=== PATIENT | female | born 1980 | race African-American/Black ===

== ENCOUNTER 2021-04-06 15:24 | Emergency (ER) | payer MEDICARE, MEDICAID, SELFPAY ==
[2021-04-06 16:04] VITALS: BP 106/65; PULSE 69; RESP 18; TEMP 36.5; O2SAT 97; BMI 28.7
[2021-04-06 18:10] VITALS: BP 109/49; PULSE 58; RESP 20; TEMP 36.7; O2SAT 98
--- NOTE | 2021-04-06 18:51 | ED.BACK ---
HPI - Back Pain/Injury General Chief Complaint: Back Pain/Injury Stated Complaint: back pain Time Seen by Provider: 04/06/21 18:51 History of Present Illness HPI Narrative: Patient complains of left-sided low mid back pain that was not relieved by 1 Percocet this morning and she does take gabapentin for chronic back pain and this is similar to previousflare ups of her chronic back pain exacerbation, there is no weakness, no change to bowel or bladder no dysuria no fever Related Data Previous Rx's Medication Instructions Recorded cyclobenzaprine 5 mg tablet 5 mg PO TID PRN #14 tab 04/06/21 lidocaine 5 % topical patch 1 patch TOPICAL DAILY PRN #15 ea 04/06/21 oxycodone 5 mg tablet 5 mg PO Q6H PRN #14 tab 04/06/21 cyclobenzaprine 10 mg tablet 10 mg PO TID PRN #15 tab 04/23/21 Allergies Allergy/AdvReac Type Severity Reaction Status Date / Time No Known Allergies Allergy Unverified 05/30/20 16:15 Review of Systems Review of Systems: Positive for left-sided low back pain Negatives are no fever no chills no dizziness no weakness no headache no neck pain no chest pain no abdominal pain no changes to bowel or bladder no dysuria no frequency no incontinence no skin rash Yes all other systems are reviewed and are negative PMFSH Past Medical History Source: nursing notes reviewed Medical History Neural foraminal stenosis of cervical spine Surgical History S/P appendectomy Social History Social History Advance Directives: No Advance Directives Information Provided: No Physical Exam Vital Signs: Vital Signs: Last Vital Signs Temp 97.6 F 04/06/21 19:53 Pulse 69 04/06/21 19:53 Resp 18 04/06/21 19:53 BP 106/63 04/06/21 19:53 Pulse Ox 100 04/06/21 19:53 Body Mass Index 28.7 General appearance is no acute distress Head is normocephalic atraumatic Neck is supple Chest clear to auscultation bilateral no respiratory distress Abdomen soft nontender The back had tenderness in the left to mid low back, no midline tenderness, the tenderness is soft tissue paraspinal tenderness, no CVA tenderness, skin was normal without any redness swelling wound or rash Pain is easily reproduced with movement Extremities full range of motion x4 Neuro no gross motor or sensory deficit Course Course Course Narrative: Patient with a flare-up of chronic back pain similar to prior had pain improved with analgesics and was discharged home with no neurologic deficit and no changes to bowel or bladder Discharge Plan Discharge Clinical Impression: Back pain Patient Disposition: Home, Self-Care Additional Instructions: If needed for the back pain which has flared up it is okay to take 2 oxycodone every 6 hours as needed as well as a muscle relaxer You can continue to use the Motrin you have at home Follow with primary doctor Return any time any worse condition or concerns Prescriptions: New cyclobenzaprine 5 mg tablet 5 mg PO TID PRN (Reason: muscle spasm) Qty: 14 RF: 0 oxycodone 5 mg tablet 5 mg PO Q6H PRN (Reason: pain) Qty: 14 RF: 0 lidocaine 5 % adhesive patch,medicated 1 patch topical DAILY PRN (Reason: back pain) Qty: 15 RF: 0 No Action cyclobenzaprine 10 mg tablet 10 mg PO TID PRN (Reason: muscle spasm) Qty: 15 RF: 0 Interventions: ED Discharge Assessment Last Done: 04/06/21 21:07 Discharge Date/Time: 04/06/21 21:08
[2021-04-06] MEDS: oxyCODONE HCl Immed Release 5 MG TABLET 10 MG PO (19:19)
[2021-04-06] MEDS: Acetaminophen 325 MG TABLET 975 MG PO (19:20)
[2021-04-06] MEDS: diazePAM 5 MG TABLET PO (19:20)
[2021-04-06] MEDS: Ketorolac Tromethamine 15 MG/ML VIAL 30 MG IM (19:21)
[2021-04-06 19:53] VITALS: BP 106/63; PULSE 69; RESP 18; TEMP 36.4; O2SAT 100
== END 2021-04-06 21:08 | disposition home or self-care (01) ==
PROVIDERS: Emergency Provider Emergency Medicine; PCP Internal Medicine
DX: M54.5 Low back pain (principal)
CPT/HCPCS: 96372; 99284; J1885

== ENCOUNTER 2021-04-22 23:34 | Emergency (ER) | payer MEDICARE, MEDICAID, SELFPAY ==
[2021-04-22 23:41] VITALS: BP 135/46; PULSE 85; RESP 18; TEMP 36.8; O2SAT 99; BMI 27.3
--- NOTE | 2021-04-23 00:32 | PC.NURSE ---
MSWS at bedside for primary eval.
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
[2021-04-23] MEDS: diazePAM 5 MG TABLET PO (00:42)
[2021-04-23] MEDS: Ketorolac Tromethamine 60 MG/2 ML VIAL IM (00:42)
--- NOTE | 2021-04-23 00:45 | PC.NURSE ---
Medicated per MAR.
[2021-04-23] MEDS: oxyCODONE HCl Immed Release 5 MG TABLET 10 MG PO (01:23)
--- NOTE | 2021-04-23 01:26 | PC.NURSE ---
Pt reports no relief of pain after Toradol. Medicated with Oxycodone per NOV.
== END 2021-04-23 01:28 | disposition home or self-care (01) ==
LOC: HO.ED 04-23 00:43
PROVIDERS: Emergency Provider Internal Medicine
DX: M47.22 Other spondylosis with radiculopathy, cervical region (principal); M48.02 Spinal stenosis, cervical region; Z79.891 Long term (current) use of opiate analgesic; Z79.899 Other long term (current) drug therapy
CPT/HCPCS: 96372; 99283; 99284; J1885

== ENCOUNTER → 2021-06-20 09:47 | Outpatient (BNVA) | payer MEDICARE, MEDICAID, SELFPAY | PROVIDERS: PCP Physician Assistant; Visit Provider Internal Medicine | DX: M47.812 Spondylosis without myelopathy or radiculopathy, cervical region (principal) | CPT/HCPCS: 99212 ==

== ENCOUNTER 2021-07-02 06:09 | Outpatient (REF) | payer MEDICARE, MEDICAID, SELFPAY ==
--- NOTE | ~2021-07-02 | FL_ITS ---
EXAMINATION: XR FLUOROSCOPY WITH IMAGES CLINICAL INFORMATION: M47.812 - Spondylosis without myelopathy or radiculopathy COMPARISON: MR cervical spine 04/24/2020 TECHNIQUE: Fluoroscopy performed by Dr. Regan. Fluoroscopy time: 0.3 minutes DAP: 0.280 Gycm2 Images: 4 FINDINGS: There are spinal needles overlying the left lateral masses at C3, C4, and C5. There is contrast seen in the respective nerve sheaths. Some early transforaminal epidural extension is suggested. No visible vascular communication. There is straightening and mild reversal cervical lordosis with degenerative disc changes C5-C6 and C6-C7 similar to the MRI exam. FL/FL guidance in treatment room IMPRESSION: Fluoroscopy for pain management procedures.
== END 2021-07-02 06:10 | disposition home or self-care (01) ==
LOC: HO.RADIR 06:09
PROVIDERS: Visit Provider Internal Medicine
DX: M47.812 Spondylosis without myelopathy or radiculopathy, cervical region (principal); Z79.899 Other long term (current) drug therapy
CPT/HCPCS: 64490; 64491; Q9967

== ENCOUNTER → 2021-07-18 09:05 | Outpatient (BNVA) | payer MEDICARE, MEDICAID, SELFPAY | PROVIDERS: PCP Physician Assistant; Visit Provider Internal Medicine | DX: M47.812 Spondylosis without myelopathy or radiculopathy, cervical region (principal); M43.12 Spondylolisthesis, cervical region | CPT/HCPCS: 99212 ==

== ENCOUNTER 2021-10-15 11:00 | Outpatient (RCR) | payer MEDICARE, MEDICAID, SELFPAY | END 2021-12-11 09:47 | disposition home or self-care (01) | LOC: HO.PTCHIC 11:00 | PROVIDERS: PCP Internal Medicine; Visit Provider Internal Medicine | DX: M54.12 Radiculopathy, cervical region (principal) | CPT/HCPCS: 97110; 97163 ==

== ENCOUNTER 2022-01-10 08:50 | Outpatient (REF) | payer MEDICARE, MEDICAID, SELFPAY ==
--- NOTE | ~2022-01-10 | MM_ITS ---
EXAMINATION: MM SCREENING DIGITAL BREAST TOMOSYNTHESIS, BILATERAL CLINICAL INFORMATION: Screening. Asymptomatic. The lifetime risk of breast cancer based on the Tyrer-Cuzick Model is 8%. COMPARISON: Mammography: 11/20/2019 (baseline) TECHNIQUE: Digital breast tomosynthesis is performed in both the craniocaudal and mediolateral oblique views along with computer-aided detection (CAD). Synthesized 2D images are generated from the tomosynthesis. FINDINGS: There are scattered areas of fibroglandular density (ACR BI-RADS breast composition Category b). Parenchymal pattern is similar to prior exam. No significant mass or architectural abnormality or developing density. No abnormal calcifications. The axilla and skin contours are unremarkable. MM/MM tomosynthesis screening BI IMPRESSION: No mammographic evidence of malignancy. ASSESSMENT: BI-RADS 1: Negative RECOMMENDATION: Routine annual mammography screening. This patient's information was entered into a reminder system with a target due date for their next mammogram.
== END 2022-01-10 08:51 | disposition home or self-care (01) ==
LOC: HO.MAMMO 08:50
PROVIDERS: PCP Internal Medicine; Visit Provider Internal Medicine
DX: Z12.31 Encounter for screening mammogram for malignant neoplasm of breast (principal)
CPT/HCPCS: 77063; 77067

== ENCOUNTER 2022-02-26 18:10 | Emergency (ER) | payer MEDICARE, MEDICAID, SELFPAY ==
[2022-02-26 18:25] VITALS: BP 134/56; PULSE 78; RESP 18; TEMP 36.4; O2SAT 100; BMI 28.1
--- NOTE | 2022-02-26 19:40 | ED.BACK ---
HPI - Back Pain/Injury General Chief Complaint: Back Pain/Injury Stated Complaint: Back Pain No Injury Time Seen by Provider: 02/26/22 19:01 Source: patient Mode of arrival: ambulatory Limitations: no limitations History of Present Illness HPI Narrative: 41-year-old female who presents emergency department for evaluation of bilateral rib pain. When I went into the room to interview , faster why she came to the emergency department today and she became very angry. She told me that she already told the nurse and that it should all be in the computer. When I told her the reviewed the note but I needed to still ask her questions she began to swear. She told me that she was not going to answer a lot of fucking questions . She told me she felt like her lungs were being crushed. One I asked her to point to where the pain was on her body she again became very angry and told me that I was asked a bunch of stupid questions and that she was wasting her time. A attempted to redirect the patient and she pulled out her phone and wanted to show me an MRI report which I told her that I could look at after she answers some questions. This made the patient very angry, she got up from the stretcher and grabbed her cane and started to walk out of the emergency department. The patient was swearing while she was leave and I could not convince her to stay for a complete evaluation. The nurse documented the patient had a surgery in July of 2021 for chronic pain. Patient has multiple issues. Increased pain bilateral ribs and mid back. Gabapentin, oxycodone, Flexeril at home not helping. Cane at baseline. Is shifting weight from chair to chair and grimacing. Patient has a history of cervical spondyloarthritis, migraines, mood disorder, bipolar disorder, PTSD, chronic low back pain without sciatica, panic disorder Initial vital signs were normal. Related Data Home Medications Medication Instructions Recorded Confirmed gabapentin 400 mg capsule 400 mg PO TID 06/20/21 07/02/21 ibuprofen 800 mg tablet 800 mg PO BID 06/20/21 07/02/21 Previous Rx's Medication Instructions Recorded cyclobenzaprine 5 mg tablet 5 mg PO TID PRN muscle spasm #14 04/06/21 tabs lidocaine 5 % topical patch 1 patch topical DAILY PRN back 04/06/21 pain #15 ea oxycodone 5 mg tablet 5 mg PO Q6H PRN pain #14 tabs 04/06/21 cyclobenzaprine 10 mg tablet 10 mg PO TID PRN muscle spasm #15 04/23/21 tabs Allergies Allergy/AdvReac Type Severity Reaction Status Date / Time No Known Allergies Allergy Verified 02/26/22 18:25 [facility] Past Medical History Medical History (Updated 02/26/22 @ 19:47 by Moreno Chow MD) Neural foraminal stenosis of cervical spine Surgical History S/P appendectomy Social History Social History Advance Directives: No Physical Exam Vital Signs: Vital Signs: Last Vital Signs Temp 97.6 F 02/26/22 18:25 Pulse 78 02/26/22 18:25 Resp 18 02/26/22 18:25 BP 134/56 L 02/26/22 18:25 Pulse Ox 100 02/26/22 18:25 O2 Del Method 02/26/22 18:25 BMI result Body Mass Index 28.1 Course Course Course Narrative: The patient refused to answer my questions refuse to stay in the emergency department for evaluation. The patient eloped. Discharge Plan Discharge Clinical Impression: Back pain Patient Disposition: Elopement Prescriptions: No Action cyclobenzaprine 5 mg tablet 5 mg PO TID PRN (Reason: muscle spasm) Qty: 14 0RF oxycodone 5 mg tablet 5 mg PO Q6H PRN (Reason: pain) Qty: 14 0RF lidocaine 5 % adhesive patch,medicated 1 patch topical DAILY PRN (Reason: back pain) Qty: 15 0RF Rx Instructions: leave on most painful area for up to 12 hrs cyclobenzaprine 10 mg tablet 10 mg PO TID PRN (Reason: muscle spasm) Qty: 15 0RF gabapentin 400 mg capsule 400 mg PO TID ibuprofen 800 mg tablet 800 mg PO BID
--- NOTE | 2022-02-26 19:50 | PC.NURSE ---
PROVIDER WAS IN TO EVAL PATIENT. PT NOTED TO BE YELLING AT PROVIDER AND NOT WANTING TO ANSWER QUESTIONS. PT NOTED TO BE AMBULATING OUT OF ED YELLING SOMETHING ABOUT NOT ANSWERING DUMB QUESTIONS.
== END 2022-02-26 19:53 | disposition left against medical advice (07) ==
PROVIDERS: Emergency Provider Emergency Medicine Emergency Medical Services; PCP Internal Medicine
DX: M54.9 Dorsalgia, unspecified (principal)
CPT/HCPCS: 99281; 99282

== ENCOUNTER 2022-05-03 21:54 | Emergency (ER) | payer MEDICARE, MEDICAID, OTHER, SELFPAY ==
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
[2022-05-03 21:58] VITALS: BP 107/72; BP 123/72; PULSE 76; PULSE 81; RESP 18; TEMP 37.2; O2SAT 96; O2SAT 98; BMI 28.1
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
[2022-05-03] MEDS: Ibuprofen 600 MG TABLET PO (22:25)
== END 2022-05-04 00:29 | disposition home or self-care (01) ==
PROVIDERS: Emergency Provider Emergency Medicine; PCP Student in an Organized Health Care Education/Training Program
DX: S10.93XA Contusion of unspecified part of neck, initial encounter (principal); S30.0XXA Contusion of lower back and pelvis, initial encounter; M54.2 Cervicalgia; V43.52XA Car driver injured in collision with other type car in traffic accident, initial encounter; Y93.9 Activity, unspecified; Y92.410 Unspecified street and highway as the place of occurrence of the external cause; Y99.9 Unspecified external cause status; Z79.899 Other long term (current) drug therapy
CPT/HCPCS: 72100; 72125; 99283

== ENCOUNTER 2022-06-27 01:29 | Emergency (ER) | payer MEDICARE, MEDICAID, SELFPAY ==
[2022-06-27 01:33] VITALS: BP 123/69; PULSE 88; RESP 19; TEMP 36.3; O2SAT 100; BMI 25.0
--- OUTSIDE RECORDS SUMMARY | 2022-06-27 02:36 | XMS_ITS | Continuity of Care Document ---
:1980 Author Organization [facility] Address [address] [facility], 4th Floor [address] [place] [phone]- Care Team Providers Name Role Phone Nivia JORGENSEN, Trav Gaines Primary Care Physician [place] [facility] [place]s): 05/07/20 - 06/06/20 [facility] [address] [place] [address], 4th [address] [place] [address]- [facility] Allergies, Adverse Reactions, Alerts Substance Reaction Severity Status NKA Active Medications 0.5cc insulin syringes 0.5cc insulin syringes, daily, Subcutaneous Injection, Daily, # 30 each, Refills 5, Tot. Refills 5, Maintenance, To use with Microdose Lupron, 04/15/20 10:26:00 EDT, pt is self pay, Compound, 166, cm, 02/23/20 11:28:00 EDT, Height Start Date: 04/15/20 Status: [id number] g 1/2 inch needle 27 g 1/2 inch needle, See Instructions, # 20 each, Refills 1, Tot. Refills 1, Maintenance, To use toadminsiter Omnitrope, 04/12/20 16:18:00 EDT, Compound, 166, cm, 02/23/20 11:28:00 EDT, Height Start Date: 04/12/20 Status: Fcckstx14m 1/2 needles 27g 1/2 needles, See Instructions, # 15 each, Refills 5, Tot. Refills 5, Maintenance, use to give menopur injections, 02/29/20 16:05:00 EDT, Supply, 166, cm, 02/23/20 11:28:00 EDT, Height Start Date: 02/29/20 Status: Ordered3 cc syringe with 22g 1 1/2 needles 3 cc syringe with 22g 1 1/2 needles, See Instructions, # 15 each, Refills 5, Tot. Refills 5, Maintenance, use to mix menopur, 02/29/20 16:05:00 EDT, Compound, 166, cm, 02/23/20 11:28:00 EDT, Height Start Date: 02/29/20 Status: Ordered3 ml syringe with 18 g x 11/2 inch needle 3 ml syringe with 18 g x 11/2 inch needle, See Instructions, # 20 each, Refills 5, Tot. Refills 5, Maintenance, To use to mix and draw up Growth Hormone, 04/12/20 16:18:00 EDT, Compound, 166, cm, 02/23/20 11:28:00 EDT, Height Start Date: 04/12/20 Status: Orderedamitriptyline 10 mg oral tablet 10 mg, 1, tablet, By Mouth, Daily at bedtime, # 90 tablet, Refills 2, Tot. Refills 2, Maintenance, 11/25/17 16:42:07, Route to Pharmacy Electronically, [id number], [facility] [id number] Start Date: 11/25/17 Stop Date: 08/22/18 Status: Ordereddoxycycline hyclate 100 mg oral tablet 1 tablet = 100 mg, By Mouth, 2 times a day, Begin with stim meds. Take with food to minimize abdominal discomfort, # 28 tablet, 5 Refills, Maintenance, 04/15/20 10:26:00 EDT, [facility], Ptis self pay., 166, cm, 02/23/20 11:28:00 EDT, Height Start Date: 04/15/20 Status: Ordereddoxycycline hyclate 100 mg oral tablet 1 tablet = 100 mg, By Mouth, 2 times a day, # 28 tablet, 5 Refills, Maintenance, 04/15/20 16:29:00 EDT, [id number], 166, cm, 02/23/20 11:28:00 EDT, Height Start Date: 04/15/20 Status: OrderedEstrace 2 mg oral tablet 1 tablet = 2 mg, By Mouth, 2 times a day, high dose for an IVF cycle, # 60 tablet, 5 Refills, Maintenance, 02/29/20 15:45:00 EDT, [id number], 166, cm, 02/23/20 11:28:00 EDT, Height Start Date: 02/29/20 Status: OrderedGonal-F 1050 units subcutaneous injection = 300 International_Units, Subcutaneous Infusion, Daily, pt is self pay, # 3 kit, 5 Refills, Maintenance, 02/29/20 16:04:00 EDT, [facility], 300 International_Units Subcutaneous Infusion Daily,Instr:pt is self pay, 166, cm, 02/23/20 11:28:... Start Date: 02/29/20 Status: OrderedLessina 100 mcg-20 mcg oral tablet 1 tablet, By Mouth, Daily, Take only active pills, # 28 tablet, 2 Refills, Maintenance, 04/04/20 13:53:00 EDT, Tablet, [facility]/pharmacy #[id number], 1 tablet By Mouth Daily,Instr:Take only active pills, 166, cm,02/23/20 11:28:00 EDT, Height Start Date: 04/04/20 Status: OrderedMicrodose Lupron 40mcg/0.1ml Microdose Lupron 40mcg/0.1ml, See Instructions, # 5 mL, Refills 5, Tot. Refills 5, Maintenance, 10 units sc BID, 04/15/20 10:26:00 EDT, Pt is self pay, Compound, 166, cm, 02/23/20 11:28:00 EDT, Height Start Date: 04/15/20 Status: OrderedNovarel 5000 units intramuscular injection = 10,000 units, Subcutaneous Injection, Once, # 2 each, 5 Refills, Soft Stop, 02/29/20 16:06:00 EDT,[facility], 166, cm, 02/23/20 11:28:00 EDT, Height Start Date: 02/29/20 Status: OrderedOmnitrope 5.8 mg subcutaneous injection See Instructions, Mix 1.14 ml of diluent into powder. Adminsiter 0.4 ml sq daily. Begin first day ofstim. meds stop with trigger injection., # 3 each, 1 Refills, Maintenance, 04/12/20 16:18:00 EDT, [facility], 166, cm, ... Start Date: 04/12/20 Status: OrderedoxyCODONE 5 mg oral tablet 5 mg, 1, tablet, By Mouth, Every 6 hours, PRN, # 10 tablet, Refills 0, Tot. Refills 0, Maintenance, Pain , Moderate, 05/21/20 8:28:00 EDT, Route to Pharmacy Electronically, [facility]/pharmacy #[id number], Partial fill upon patient request, 166, cm, 04/30/20 15:33... Start Date: 05/21/20 Status: OrderedPrenatal Multivitamins By Mouth, Daily, 0 Refills, Maintenance, 12/01/19 15:15:00 EDT Start Date: 12/01/19 Status: OrderedPrometrium 200 mg oral capsule See Instructions, Insert 1 vaginally TID, # 90 capsule, 5 Refills, Maintenance, 02/29/20 15:45:00 EDT, [facility]/pharmacy #[id number], 166, cm, 02/23/20 11:28:00 EDT, Height Start Date: 02/29/20 Status: OrderedValium 5 mg oral tablet See Instructions, 1 tablet po 1 hour before procedure, # 1 tablet, Refills 0, Tot. Refills 0, Maintenance, 11/14/19 16:35:00 EST, Instructions Replace Required Details, Route to Pharmacy Electronically, [facility]/pharmacy #[id number], 166, cm, 11/22/17 8:50:00 ED... Start Date: 11/14/19 Status: OrderedValium 5 mg oral tablet See Instructions, Take 1 tablet 1 hour prior to TRANSFER. May repeat x 1., # 2 tablet, Refills 0, Tot. Refills 0, Maintenance, 05/21/20 8:28:00 EDT, Instructions Replace Required Details, Route to Pharmacy Electronically, [facility]/pharmacy #[id number], 166, cm,... Start Date: 05/21/20 Status: Ordered Problem List No Known Problems Social History Social History Type Response Smoking Status Never (less than 100 in life time); Tobacco user in household: No; Refused tobacco status screen entered on: 02/23/20 Sex
--- OUTSIDE RECORDS SUMMARY | 2022-06-27 02:36 | XMS_ITS | Continuity of Care Document ---
:1980 Author Organization [facility] Address [address] [facility], 4th Floor [address] [place] [address]- Care Team Providers Name Role Phone Nivia JORGENSEN, Trav Gaines Primary Care Physician [place] [facility] [place]s): 05/17/20 - 06/16/20 [facility] [address] [place] [address], [address]th [address] [place] [phone]- [facility] Allergies, Adverse Reactions, Alerts Substance Reaction Severity Status NKA Active Medications 0.5cc insulin syringes 0.5cc insulin syringes, daily, Subcutaneous Injection, Daily, # 30 each, Refills 5, Tot. Refills 5, Maintenance, To use with Microdose Lupron, 04/15/20 10:26:00 EDT, pt is self pay, Compound, 166, cm, 02/23/20 11:28:00 EDT, Height Start Date: 04/15/20 Status: Layprvc10 g 1/2 inch needle 27 g 1/2 inch needle, See Instructions, # 20 each, Refills 1, Tot. Refills 1, Maintenance, To use toadminsiter Omnitrope, 04/12/20 16:18:00 EDT, Compound, 166, cm, 02/23/20 11:28:00 EDT, Height Start Date: 04/12/20 Status: Jtziuew41m 1/2 needles 27g 1/2 needles, See Instructions, [...] Maintenance, 11/25/17 16:42:07, Route to Pharmacy Electronically, [id number], [facility] [id number] Start Date: 11/25/17 Stop Date: 08/22/18 Status: [...] 2 Refills, Maintenance, 04/04/20 13:53:00 EDT, Tablet, [facility]/pharmacy #[id number], 1 tablet By Mouth [...] 05/21/20 8:28:00 EDT, Route to Pharmacy Electronically, [facility]/pharmacy #[id number], Partial fill upon patient request, 166, cm, 04/30/20 15:33... Start Date: 05/21/20 Status: OrderedPrenatal Multivitamins By Mouth, Daily, 0 Refills, Maintenance, 12/01/19 15:15:00 EDT Start Date: 12/01/19 Status: OrderedPrometrium 200 mg oral capsule See Instructions, Insert 1 vaginally TID, # 90 capsule, 5 Refills, Maintenance, 02/29/20 15:45:00 EDT, [facility]/pharmacy #[id number], 166, cm, 02/23/20 11:28:00 EDT, Height Start Date: 02/29/20 Status: OrderedValium 5 mg oral tablet See Instructions, 1 tablet po 1 hour before procedure, # 1 tablet, Refills 0, Tot. Refills 0, Maintenance, 11/14/19 16:35:00 EST, Instructions Replace Required Details, Route to Pharmacy Electronically, [facility]/pharmacy #[id number], 166, cm, 11/22/17 8:50:00 ED... Start Date: 11/14/19 Status: OrderedValium 5 mg oral tablet See Instructions, Take 1 tablet 1 hour prior to TRANSFER. May repeat x 1., # 2 tablet, Refills 0, Tot. Refills 0, Maintenance, 05/21/20 8:28:00 EDT, Instructions Replace Required Details, Route to Pharmacy Electronically, [facility]/pharmacy #[id number], 166, cm,... Start Date: 05/21/20 Status: Ordered Problem List No Known Problems Social History Social History Type Response Smoking Status Never (less than 100 in life time); Tobacco user in household: No; Refused tobacco status screen entered on: 02/23/20 Sex
--- OUTSIDE RECORDS SUMMARY | 2022-06-27 02:36 | XMS_ITS | Continuity of Care Document ---
:1980 Author Organization [facility] Address [address] [place] [address], [address] [place] [phone]- Care Team Providers Name Role Phone Nivia JORGENSEN, Trav Gaines Primary Care Physician En[place] [facility] [place]s): 04/17/20 - 05/17/20 [facility] [address], [address] [place] [phone]- [facility] Allergies, Adverse Reactions, Alerts Substance Reaction Severity Status NKA Active Medications 0.5cc insulin syringes 0.5cc insulin syringes, daily, Subcutaneous Injection, Daily, # 30 each, Refills 5, Tot. Refills 5, Maintenance, To use with Microdose Lupron, 04/15/20 10:26:00 EDT, pt is self pay, Compound, 166, cm, 02/23/20 11:28:00 EDT, Height Start Date: 04/15/20 Status: Nbfalky60 g 1/2 inch needle 27 g 1/2 inch needle, See Instructions, # 20 each, Refills 1, Tot. Refills 1, Maintenance, To use toadminsiter Omnitrope, 04/12/20 16:18:00 EDT, Compound, 166, cm, 02/23/20 11:28:00 EDT, Height Start Date: 04/12/20 Status: Gtsmosq36b 1/2 needles 27g 1/2 needles, See Instructions, [...] Maintenance, 11/25/17 16:42:07, Route to Pharmacy Electronically, [id number], [facility] [id number] Start Date: 11/25/17 Stop Date: 08/22/18 Status: [...] tablet, 5 Refills, Maintenance, 04/15/20 16:29:00 EDT, [facility]/pharmacy #[id number], 166, cm, 02/23/20 11:28:00 EDT, Height [...] 2 Refills, Maintenance, 04/04/20 13:53:00 EDT, Tablet, [facility]/pharmacy #[id number], 1 tablet By Mouth Daily,Instr:Take only [...] 166, cm, ... Start Date: 04/12/20 Status: OrderedPrenatal Multivitamins By Mouth, Daily, 0 Refills, Maintenance, 12/01/19 15:15:00 EDT Start Date: 12/01/19 Status: OrderedPrometrium 200 mg oral capsule See Instructions, Insert 1 vaginally TID, # 90 capsule, 5 Refills, Maintenance, 02/29/20 15:45:00 EDT, [facility]/pharmacy #[id number], 166, cm, 02/23/20 11:28:00 EDT, Height Start Date: 02/29/20 Status: OrderedValium 5 mg oral tablet See Instructions, 1 tablet po 1 hour before procedure, # 1 tablet, Refills 0, Tot. Refills 0, Maintenance, 11/14/19 16:35:00 EST, Instructions Replace Required Details, Route to Pharmacy Electronically, [id number], 166, cm, 11/22/17 8:50:00 ED... Start Date: 11/14/19 Status: Ordered Problem List No Known Problems Social History Social History Type Response Smoking Status Never (less than 100 in life time); Tobacco user in household: No; Refused tobacco status screen entered on: 02/23/20 Sex
--- OUTSIDE RECORDS SUMMARY | 2022-06-27 02:36 | XMS_ITS | Continuity of Care Document ---
:1980 Author Organization [facility] Address [address] [place] [address], 4th [address] [place] [phone]- Care Team Providers Name Role Phone Vicki Ramos MD Primary Care Physician Encounter [id number] Date(s): 11/08/19 - 11/15/19 [facility] [address] [place] [address], [address] [place] [phone]- [facility] Attending Physician: Nancy Thompson MD Allergies, Adverse Reactions, Alerts Substance Reaction Severity Status NKA Active Medications acetaminophen-oxycodone 325 mg-5 mg oral tablet 1 tablet, By Mouth, Every 4 hours, PRN for pain, # 18 tablet, 0 Refills, Maintenance, Tablet Start Date: 11/19/11 Stop Date: 11/22/11 Status: Orderedamitriptyline 10 mg oral tablet 10 mg, 1, tablet, By Mouth, Daily at bedtime, # 90 tablet, Refills 2, Tot. Refills 2, Maintenance, 11/25/17 16:42:07, Route to Pharmacy Electronically, [id number], [facility] [id number] Start Date: 11/25/17 Stop Date: 08/22/18 Status: Orderedazithromycin 500 mg oral tablet 2 tablet = 1,000 mg, By Mouth, Once, # 2 tablet, 0 Refills, Soft Stop, Tablet Start Date: 10/06/12 Stop Date: 10/07/12 Status: OrderedDiflucan 150 mg oral tablet 1 tablet = 150 mg, By Mouth, Once, # 1 tablet, 0 Refills, Soft Stop, Tablet Start Date: 10/06/12 Status: Ordereddoxycycline hyclate 100 mg oral tablet 1 tablet = 100 mg, By Mouth, 2 times a day, for 5 days, (may take with food to minimize abdominal discomfort) Start 2 days before procedure, # 10 tablet, 0 Refills, Acute 11/19/19 11:43:00 EDT, 11/14/19 11:43:00 EST, [facility]/pharmacy #[id number], 166, cm, 11/22... Start Date: 11/14/19 Stop Date: 11/19/19 Status: OrderedMetroGel-Vaginal 0.75% vaginal gel with applicator one applicator, Vaginally, 2 times a day, # 10 applicator, 0 Refills, Maintenance Start Date: 10/06/12 Stop Date: 10/11/12 Status: OrderedPercocet-5/325 325 mg-5 mg oral tablet 1 tablet, By Mouth, Every 6 hours, PRN Pain , Moderate, # 12 tablet, 0 Refills, Maintenance Start Date: 02/26/12 Stop Date: 02/29/12 Status: OrderedPercocet-5/325 325 mg-5 mg oral tablet 1 tablet, By Mouth, Every 4 hours, PRN for pain, # 12 tablet, 0 Refills, Maintenance, Tablet Start Date: 07/07/11 Status: OrderedPercocet-5/325 325 mg-5 mg oral tablet 1 tablet, By Mouth, Every 6 hours, PRN Pain, # 12 tablet, 0 Refills, Maintenance Start Date: 01/07/12 Status: OrderedPercocet-5/325 325 mg-5 mg oral tablet 1 tablet, By Mouth, Every 4 hours, PRN for pain, # 15 tablet, 0 Refills, Maintenance, Tablet Start Date: 12/17/11 Status: OrderedTylox 500 mg-5 mg oral capsule 1 capsule, By Mouth, Every 4 hours, PRN for pain, # 18 capsule, 0 Refills, Maintenance, Capsule Start Date: 08/16/11 Status: OrderedValium 5 mg oral tablet See Instructions, 1 tablet po 1 hour before procedure, # 1 tablet, Refills 0, Tot. Refills 0, Maintenance, 11/14/19 16:35:00 EST, Instructions Replace Required Details, Route to Pharmacy Electronically, [facility]/pharmacy #[id number], 166, cm, 11/22/17 8:50:00 ED... Start Date: 11/14/19 Status: OrderedZofran ODT 4 mg oral tablet, disintegrating 1 tablet = 4 mg, By Mouth, 3 times a day, # 10 tablet, 0 Refills, Maintenance, DIS Tablet Start Date: 08/16/11 Status: Ordered Problem List No Known Problems Procedures Procedure Date Related Diagnosis Body Site Status Tubal anastomosis1 12/02/17 Completed Laparoscopic bilateral female 2000 Completed sterilization Laparoscopic treatment of ectopic Completed with salpingectomy2 1[place] [facility], [id number], with appendectomy, [facility]
--- OUTSIDE RECORDS SUMMARY | 2022-06-27 02:36 | XMS_ITS | Continuity of Care Document ---
:1980 Author Organization [facility] Address [address] [place] [address], 4th [address] [place] [phone]- Care Team Providers Name Role Phone Nivia JORGENSEN, Trav Gaines Primary Care Physician [place] [facility] [place]/27/20 - 03/05/20 [facility] [address] [place] [address], [address] [place] [phone]- [facility] Attending Physician: Nancy Thompson MD Allergies, Adverse Reactions, Alerts Substance Reaction Severity Status NKA Active Medications 27g 1/2 needles 27g 1/2 needles, See Instructions, [...] 11:28:00 EDT, Height Start Date: 02/29/20 Status: Orderedamitriptyline 10 mg oral tablet 10 mg, 1, tablet, By Mouth, Daily at bedtime, # 90 tablet, Refills 2, Tot. Refills 2, Maintenance, 11/25/17 16:42:07, Route to Pharmacy Electronically, [id number], [employer] [facility] [id number] Start Date: 11/25/17 Stop Date: 08/22/18 Status: Ordereddoxycycline hyclate 100 mg oral tablet 1 tablet = 100 mg, By Mouth, 2 times a day, # 28 tablet, 5 Refills, Maintenance, 02/29/20 15:45:00 EDT, [id number], 166, cm, 02/23/20 11:28:00 EDT, Height Start Date: 02/29/20 Status: OrderedEstrace 2 mg oral tablet 1 tablet = 2 mg, By Mouth, 2 times a day, high dose for an IVF cycle, # 60 tablet, 5 Refills, Maintenance, 02/29/20 15:45:00 EDT, [id number], 166, cm, 02/23/20 11:28:00 EDT, Height Start Date: 02/29/20 Status: OrderedGanirelix Acetate 250 mcg/0.5 mL subcutaneous injection See Instructions, 1 prefilled syringe QD, start when directed, # 7 each, 5 Refills, Maintenance, 02/29/20 16:06:00 EDT, [facility], 166, cm, 02/23/20 11:28:00 EDT, Height Start Date: 02/29/20 Status: OrderedGonal-F 1050 units subcutaneous injection = 300 International_Units, Subcutaneous Infusion, Daily, pt is self pay, # 3 kit, 5 Refills, Maintenance, 02/29/20 16:04:00 EDT, [facility], 300 International_Units Subcutaneous Infusion Daily,Instr:pt is self pay, 166, cm, 02/23/20 11:28:... Start Date: 02/29/20 Status: OrderedMenopur 75 intl units subcutaneous injection = 300 International_Units, Subcutaneous Infusion, Daily, # 40 each, 5 Refills, Maintenance, 02/29/2016:04:00 EDT, [facility], 166, cm, 02/23/20 11:28:00 EDT, Height Start Date: 02/29/20 Status: OrderedNovarel 5000 units intramuscular injection = 10,000 units, Subcutaneous Injection, Once, # 2 each, 5 Refills, Soft Stop, 02/29/20 16:06:00 EDT,[facility], 166, cm, 02/23/20 11:28:00 EDT, Height Start Date: 02/29/20 Status: OrderedPrenatal Multivitamins By Mouth, Daily, 0 Refills, Maintenance, 12/01/19 15:15:00 EDT Start Date: 12/01/19 Status: OrderedPrometrium 200 mg oral capsule See Instructions, Insert 1 vaginally TID, # 90 capsule, 5 Refills, Maintenance, 02/29/20 15:45:00 EDT, [facility]/pharmacy #[id number], 166, cm, 02/23/20 11:28:00 EDT, Height Start Date: 02/29/20 Status: OrderedValium 5 mg oral tablet See Instructions, 1 tablet po 1 hour before procedure, # 1 tablet, Refills 0, Tot. Refills 0, Maintenance, 11/14/19 16:35:00 EST, Instructions Replace Required Details, Route to Pharmacy Electronically, [facility]/pharmacy #[id number], 166, cm, 11/22/17 8:50:00 ED... Start Date: 11/14/19 Status: Ordered Problem List No Known Problems Vital Signs Most recent to oldest [Reference Range]: 1 Height 166 cm (02/23/20 11:28 AM) Social History Social History Type Response Smoking Status Never (less than 100 in life time); Tobacco user in household: No; Refused tobacco status screen entered on: 02/23/20 Sex
--- OUTSIDE RECORDS SUMMARY | 2022-06-27 02:36 | XMS_ITS | Continuity of Care Document ---
:1980 Author Organization [facility] Address [address] [facility], 4th Floor [address] [place] [phone]- Care Team Providers Name Role Phone Nivia JORGENSEN, Trav Gaines Primary Care Physician [place] [facility] [place]20 [facility] [address] [place] [address], [address]th [address] [place] [phone]- [facility] Allergies, Adverse Reactions, Alerts Substance Reaction Severity Status NKA Active Medications 0.5cc insulin syringes 0.5cc insulin syringes, daily, Subcutaneous Injection, Daily, # 30 each, Refills 5, Tot. Refills 5, Maintenance, To use with Microdose Lupron, 04/15/20 10:26:00 EDT, pt is self pay, Compound, 166, cm, 02/23/20 11:28:00 EDT, Height Start Date: 04/15/20 Status: Tsrsudk06 g 1/2 inch needle 27 g 1/2 inch needle, See Instructions, # 20 each, Refills 1, Tot. Refills 1, Maintenance, To use toadminsiter Omnitrope, 04/12/20 16:18:00 EDT, Compound, 166, cm, 02/23/20 11:28:00 EDT, Height Start Date: 04/12/20 Status: Ppucyva42f 1/2 needles 27g 1/2 needles, See Instructions, [...] Maintenance, 11/25/17 16:42:07, Route to Pharmacy Electronically, [id number], [facility] [id number] Start Date: 11/25/17 Stop Date: 08/22/18 Status: [...] tablet, 5 Refills, Maintenance, 04/15/20 16:29:00 EDT, [facility]/pharmacy #[id number], 166, cm, 02/23/20 11:28:00 EDT, [...] 2 Refills, Maintenance, 04/04/20 13:53:00 EDT, Tablet, [facility]/pharmacy #[id number], 1 tablet By Mouth Daily,Instr:Take [...] capsule, 5 Refills, Maintenance, 02/29/20 15:45:00 EDT, [facility] [...]
--- OUTSIDE RECORDS SUMMARY | 2022-06-27 02:36 | XMS_ITS | Continuity of Care Document ---
:1980 Author Organization [facility] Address [address] [place] [address], 4th Floor [address] [place] [phone]- Care Team Providers Name Role Phone Nivia JORGENSEN, Trav Gaines Primary Care Physician En[place] [facility] [place] Date(s[place] 03/14/20 - 04/13/20 [facility] [address] [place] [address], 4th Floor [address] [place] [phone]- [facility] Allergies, Adverse Reactions, Alerts Substance Reaction Severity Status NKA Active Medications 0.5cc insulin syringes 0.5cc insulin syringes, daily, Subcutaneous Injection, Daily, # 30 each, Refills 5, Tot. Refills 5, Maintenance, To use with Microdose Lupron, 04/12/20 14:43:00 EDT, pt is self pay, Compound, 166, cm, 02/23/20 11:28:00 EDT, Height Start Date: 04/12/20 Status: [id number] g 1/2 inch needle 27 g 1/2 inch needle, See Instructions, # 20 each, Refills 1, Tot. Refills 1, Maintenance, To use toadminsiter Omnitrope, 04/12/20 16:18:00 EDT, Compound, 166, cm, 02/23/20 11:28:00 EDT, Height Start Date: 04/12/20 Status: Glgemgq76e 1/2 needles 27g 1/2 needles, See Instructions, [...] Maintenance, 11/25/17 16:42:07, Route to Pharmacy Electronically, [id number], [id number] Start Date: 11/25/17 Stop Date: 08/22/18 Status: Ordereddoxycycline hyclate 100 mg oral tablet 1 tablet = 100 mg, By Mouth, 2 times a day, Begin with stim meds. Take with food to minimize abdominal discomfort, # 28 tablet, 5 Refills, Maintenance, 04/12/20 14:42:00 EDT, [facility], Ptis self pay., 166, cm, 02/23/20 11:28:00 EDT, Height Start Date: 04/12/20 Status: OrderedEstrace 2 mg oral tablet 1 [...] 2 Refills, Maintenance, 04/04/20 13:53:00 EDT, Tablet, [facility]/pharmacy #[id number], 1 tablet By Mouth Daily,Instr:Take only active pills, 166, cm,02/23/20 11:28:00 EDT, Height Start Date: 04/04/20 Status: OrderedMicrodose Lupron 40mcg/0.1ml Microdose Lupron 40mcg/0.1ml, See Instructions, # 5 mL, Refills 5, Tot. Refills 5, Maintenance, 10 units sc BID, 04/12/20 14:43:00 EDT, Pt is self pay, Compound, 166, cm, 02/23/20 11:28:00 EDT, Height Start Date: 04/12/20 Status: OrderedNovarel 5000 units intramuscular injection = [...] capsule, 5 Refills, Maintenance, 02/29/20 15:45:00 EDT, [facility]/pharmacy #[id number], 166, cm, 02/23/20 11:28:00 EDT, Height Start Date: 02/29/20 Status: OrderedValium 5 mg oral tablet See Instructions, 1 tablet po 1 hour before procedure, # 1 tablet, Refills 0, Tot. Refills 0, Maintenance, 11/14/19 16:35:00 EST, Instructions Replace Required Details, Route to Pharmacy Electronically, [facility]/pharmacy #[id number], 166, cm, 11/22/17 8:50:00 ED... Start Date: 11/14/19 Status: Ordered Problem List No Known Problems Social History Social History Type Response Smoking Status Never (less than 100 in life time); Tobacco user in household: No; Refused tobacco status screen entered on: 02/23/20 Sex
--- OUTSIDE RECORDS SUMMARY | 2022-06-27 02:36 | XMS_ITS | Continuity of Care Document ---
:1980 Author Organization [facility] Address [address] [facility], 4th Floor [address] [place] [phone]- Care Team Providers Name Role Phone Nivia JORGENSEN, Trav Gaines Primary Care Physician [place] [facility] [place] 05/16/20 - 05/23/20 [facility] [address] [place] [address], 4th [address] [place] [phone]- [facility] Attending Physician: Nancy Thompson MD Referring Physician: Trav Gonzáles MD Allergies, Adverse Reactions, Alerts Substance Reaction Severity Status NKA Active Medications 0.5cc insulin syringes 0.5cc insulin syringes, daily, Subcutaneous Injection, Daily, # 30 each, Refills 5, Tot. Refills 5, Maintenance, To use with Microdose Lupron, 04/15/20 10:26:00 EDT, pt is self pay, Compound, 166, cm, 02/23/20 11:28:00 EDT, Height Start Date: 04/15/20 Status: Sdwejpp24 g 1/2 inch needle 27 g 1/2 inch needle, See Instructions, # 20 each, Refills 1, Tot. Refills 1, Maintenance, To use toadminsiter Omnitrope, 04/12/20 16:18:00 EDT, Compound, 166, cm, 02/23/20 11:28:00 EDT, Height Start Date: 04/12/20 Status: Yysiyun33x 1/2 needles 27g 1/2 needles, See Instructions, [...] Maintenance, 11/25/17 16:42:07, Route to Pharmacy Electronically, [id number], [facility] [id number] Start Date: 11/25/17 Stop Date: 08/22/18 Status: [...] 2 Refills, Maintenance, 04/04/20 13:53:00 EDT, Tablet, [id number], 1 tablet By Mouth Daily,Instr:Take only [...] 05/21/20 8:28:00 EDT, [id number] fill upon patient request, 166, cm, 04/30/20 15:33... Start Date: 05/21/20 Status: OrderedPrenatal Multivitamins By Mouth, Daily, 0 Refills, Maintenance, 12/01/19 15:15:00 EDT Start Date: 12/01/19 Status: OrderedPrometrium 200 mg oral capsule See Instructions, Insert 1 vaginally TID, # 90 capsule, 5 Refills, Maintenance, 02/29/20 15:45:00 EDT, [facility]/pharmacy #[id number], 166, cm, 02/23/20 11:28:00 EDT, Height Start Date: 02/29/20 Status: OrderedValium 5 mg oral tablet See Instructions, 1 tablet po 1 hour before procedure, # 1 tablet, Refills 0, Tot. Refills 0, Maintenance, 11/14/19 16:35:00 EST, Instructions Replace Required Details, [facility]ically[id number] 166, cm, 11/22/17 8:50:00 ED... Start Date: 11/14/19 Status: OrderedValium 5 mg oral tablet See Instructions, Take 1 tablet 1 hour prior to TRANSFER. May repeat x 1., # 2 tablet, Refills 0, Tot. Refills 0, Maintenance, 05/21/20 8:28:00 EDT, Instructions Replace Required Details, [id number] 166, cm,... Start Date: 05/21/20 Status: Ordered Problem List No Known Problems Social History Social History Type Response Smoking Status Never (less than 100 in life time); Tobacco user in household: No; Refused tobacco status screen entered on: 02/23/20 Sex
--- OUTSIDE RECORDS SUMMARY | 2022-06-27 02:36 | XMS_ITS | Continuity of Care Document ---
:1980 Author Organization [facility] Yoan Joyces Estelita Address [address] [place] [address], [address] [place] [phone]- Care Team Providers Name Role Phone Nivia JORGENSEN, Trav Gaines Primary Care Physician [place] [facility] [place] 04/18/20 [facility] [address], [address] [place] [phone]- [facility] Allergies, Adverse Reactions, Alerts Substance Reaction Severity Status NKA Active Medications 0.5cc insulin syringes 0.5cc insulin syringes, daily, Subcutaneous Injection, Daily, # 30 each, Refills 5, Tot. Refills 5, Maintenance, To use with Microdose Lupron, 04/15/20 10:26:00 EDT, pt is self pay, Compound, 166, cm, 02/23/20 11:28:00 EDT, Height Start Date: 04/15/20 Status: Jfysopf73 g 1/2 inch needle 27 g 1/2 inch needle, See Instructions, # 20 each, Refills 1, Tot. Refills 1, Maintenance, To use toadminsiter Omnitrope, 04/12/20 16:18:00 EDT, Compound, 166, cm, 02/23/20 11:28:00 EDT, Height Start Date: 04/12/20 Status: Iqnqufu84z 1/2 needles 27g 1/2 needles, See Instructions, [...] Maintenance, 11/25/17 16:42:07, Route to Pharmacy Electronically, [id number], [facility] [id number] Start Date: 11/25/17 Stop Date: 08/22/18 Status: [...] tablet, 5 Refills, Maintenance, 04/15/20 16:29:00 EDT, [facility]/pharmacy #[id number], 166, cm, 02/23/20 11:28:00 EDT, [...] 2 Refills, Maintenance, 04/04/20 13:53:00 EDT, Tablet, [facility]/pharmacy #[id number], 1 tablet By Mouth Daily,Instr:Take only [...] [facility], 166, cm, 06/12/... Start Date: 04/12/20 Status: OrderedPrenatal Multivitamins By Mouth, Daily, 0 Refills, Maintenance, 12/01/19 15:15:00 EDT Start Date: 12/01/19 Status: OrderedPrometrium 200 mg oral capsule See Instructions, Insert 1 vaginally TID, # 90 capsule, 5 Refills, Maintenance, 02/29/20 15:45:00 EDT, [facility]/pharmacy #[id number], 166, cm, 02/23/20 11:28:00 EDT, [...]
--- OUTSIDE RECORDS SUMMARY | 2022-06-27 02:36 | XMS_ITS | Continuity of Care Document ---
:1980 Author Organization [facility] Yoan Joyces Estelita Address [address] [place] [address], [address] [place] [phone]- Care Team Providers Name Role Phone Nivia JORGENSEN, Trav Gaines Primary Care Physician [place] [facility] [place] - 05/15/20 [facility] Will [address], [address] [place] [address]- [facility] Allergies, Adverse Reactions, Alerts Substance Reaction Severity Status NKA Active Medications 0.5cc insulin syringes 0.5cc insulin syringes, daily, Subcutaneous Injection, Daily, # 30 each, Refills 5, Tot. Refills 5, Maintenance, To use with Microdose Lupron, 04/15/20 10:26:00 EDT, pt is self pay, Compound, 166, cm, 02/23/20 11:28:00 EDT, Height Start Date: 04/15/20 Status: Bpecrlt44 g 1/2 inch needle 27 g 1/2 inch needle, See Instructions, # 20 each, Refills 1, Tot. Refills 1, Maintenance, To use toadminsiter Omnitrope, 04/12/20 16:18:00 EDT, Compound, 166, cm, 02/23/20 11:28:00 EDT, Height Start Date: 04/12/20 Status: Iabivkz48b 1/2 needles 27g 1/2 needles, See Instructions, [...] Maintenance, 11/25/17 16:42:07, Route to Pharmacy Electronically, [id number], [facility] [id number] Start Date: 11/25/17 Stop Date: 08/22/18 Status: [...] tablet, 5 Refills, Maintenance, 04/15/20 16:29:00 EDT, [facility]/pharmacy #[id number], 166, cm, 02/23/20 11:28:00 EDT, [...] 2 Refills, Maintenance, 04/04/20 13:53:00 EDT, Tablet, [facility]/pharmacy #[id number], 1 tablet By Mouth Daily,Instr:Take [...] capsule, 5 Refills, Maintenance, 02/29/20 15:45:00 EDT, [facility]/pharmacy #[id number], 166, cm, 02/23/20 11:28:00 EDT, [...]
--- OUTSIDE RECORDS SUMMARY | 2022-06-27 02:36 | XMS_ITS | Continuity of Care Document ---
:1980 Author Organization [facility] Address [address] [facility], 4th Floor [address] [place] [phone]- Care Team Providers Name Role Phone Nivia JORGENSEN, Trav Gaines Primary Care Physician [place] [facility] [place]13[place]20 - 06/12/20 [facility] [address] [place] [address], 4th [address] [place] [phone]- [facility] Allergies, Adverse Reactions, Alerts Substance Reaction Severity Status NKA Active Medications 0.5cc insulin syringes 0.5cc insulin syringes, daily, Subcutaneous Injection, Daily, # 30 each, Refills 5, Tot. Refills 5, Maintenance, To use with Microdose Lupron, 04/15/20 10:26:00 EDT, pt is self pay, Compound, 166, cm, 02/23/20 11:28:00 EDT, Height Start Date: 04/15/20 Status: Zfywygq96 g 1/2 inch needle 27 g 1/2 inch needle, See Instructions, # 20 each, Refills 1, Tot. Refills 1, Maintenance, To use toadminsiter Omnitrope, 04/12/20 16:18:00 EDT, Compound, 166, cm, 02/23/20 11:28:00 EDT, Height Start Date: 04/12/20 Status: Mddwfmk32j 1/2 needles 27g 1/2 needles, See Instructions, [...] Maintenance, 11/25/17 16:42:07, Route to Pharmacy Electronically, [id number], [facility] [address] Start Date: 11/25/17 Stop Date: 08/22/18 Status: [...] 2 Refills, Maintenance, 04/04/20 13:53:00 EDT, Tablet, [facility]/pharmacy #[id number], 1 tablet By Mouth Daily,Instr:Take [...] 05/21/20 8:28:00 EDT, Route to Pharmacy Electronically, [facility]/pharmacy #[id number], Partial fill upon patient request, 166, cm, 04/30/20 15:33... Start Date: 05/21/20 Status: OrderedPrenatal Multivitamins By Mouth, Daily, 0 Refills, Maintenance, 12/01/19 15:15:00 EDT Start Date: 12/01/19 Status: OrderedPrometrium 200 mg oral capsule See Instructions, Insert 1 vaginally TID, # 90 capsule, 5 Refills, Maintenance, 02/29/20 15:45:00 EDT, [facility]/pharmacy #[id number], 166, cm, 02/23/20 11:28:00 EDT, Height Start Date: 02/29/20 Status: OrderedValium 5 mg oral tablet See Instructions, 1 tablet po 1 hour before procedure, # 1 tablet, Refills 0, Tot. Refills 0, Maintenance, 11/14/19 16:35:00 EST, Instructions Replace Required Details, Route to Pharmacy Electronically, [facility]/pharmacy #[id number], 166, cm, 11/22/17 8:50:00 ED... Start Date: 11/14/19 Status: OrderedValium 5 mg oral tablet See Instructions, Take 1 tablet 1 hour prior to TRANSFER. May repeat x 1., # 2 tablet, Refills 0, Tot. Refills 0, Maintenance, 05/21/20 8:28:00 EDT, Instructions Replace Required Details, Route to Pharmacy Electronically, [facility]/pharmacy #[id number], 166, cm,... Start Date: 05/21/20 Status: Ordered Problem List No Known Problems Social History Social History Type Response Smoking Status Never (less than 100 in life time); Tobacco user in household: No; Refused tobacco status screen entered on: 02/23/20 Sex
--- OUTSIDE RECORDS SUMMARY | 2022-06-27 02:36 | XMS_ITS | Continuity of Care Document ---
:1980 Author Organization [facility] Address [address] [facility], 4th Floor [address] [place] [phone]- Care Team Providers Name Role Phone Nivia JORGENSEN, Trav Gaines Primary Care Physician [place] [facility] [place] - 06/07/20 [facility] [address] [place] [address], 4th [address] [place] [address]- [facility] Allergies, Adverse Reactions, Alerts Substance Reaction Severity Status NKA Active Medications 0.5cc insulin syringes 0.5cc insulin syringes, daily, Subcutaneous Injection, Daily, # 30 each, Refills 5, Tot. Refills 5, Maintenance, To use with Microdose Lupron, 04/15/20 10:26:00 EDT, pt is self pay, Compound, 166, cm, 02/23/20 11:28:00 EDT, Height Start Date: 04/15/20 Status: Kqkadsz55 g 1/2 inch needle 27 g 1/2 inch needle, See Instructions, # 20 each, Refills 1, Tot. Refills 1, Maintenance, To use toadminsiter Omnitrope, 04/12/20 16:18:00 EDT, Compound, 166, cm, 02/23/20 11:28:00 EDT, Height Start Date: 04/12/20 Status: Gmjrikd87q 1/2 needles 27g 1/2 needles, See Instructions, [...] Maintenance, 11/25/17 16:42:07, Route to Pharmacy Electronically, [id number], [facility] [id number] Start Date: 11/25/17 Stop Date: 08/22/18 Status: [...] tablet, 5 Refills, Maintenance, 04/15/20 16:29:00 EDT, [facility]/pharmacy [...]
--- OUTSIDE RECORDS SUMMARY | 2022-06-27 02:36 | XMS_ITS | Continuity of Care Document ---
:1980 Author Organization [facility] Yoan Capone Address [address] [place] [address], [address] [place] [phone]- Care Team Providers Name Role Phone Nivia JORGENSEN, Trav Gaines Primary Care Physician [place] [facility] [place] [facility] Will [address] [phone]- [facility] Allergies, Adverse Reactions, Alerts Substance Reaction Severity Status NKA Active Medications 0.5cc insulin syringes 0.5cc insulin syringes, daily, Subcutaneous Injection, Daily, # 30 each, Refills 5, Tot. Refills 5, Maintenance, To use with Microdose Lupron, 04/15/20 10:26:00 EDT, pt is self pay, Compound, 166, cm, 02/23/20 11:28:00 EDT, Height Start Date: 04/15/20 Status: Rsyhdhz48 g 1/2 inch needle 27 g 1/2 inch needle, See Instructions, # 20 each, Refills 1, Tot. Refills 1, Maintenance, To use toadminsiter Omnitrope, 04/12/20 16:18:00 EDT, Compound, 166, cm, 02/23/20 11:28:00 EDT, Height Start Date: 04/12/20 Status: Bavgmrr15t 1/2 needles 27g 1/2 needles, See Instructions, [...] Maintenance, 11/25/17 16:42:07, Route to Pharmacy Electronically, [id number], [facility] [address] Start Date: 11/25/17 Stop Date: 08/22/18 Status: [...] Refills, Maintenance, 04/15/20 16:29:00 EDT, [facility]/pharmacy #[id number], 166, cm, 02/23/20 11:28:00 EDT, [...] Maintenance, 04/04/20 13:53:00 EDT, Tablet, [facility]/pharmacy #[id number], 1 tablet By Mouth Daily,Instr:Take [...] 05/21/20 8:28:00 EDT, Route to Pharmacy Electronically, [facility]/pharmacy #[id number], Partial fill upon patient request, 166, cm, 04/30/20 15:33... Start Date: 05/21/20 Status: OrderedPrenatal Multivitamins By Mouth, Daily, 0 Refills, Maintenance, 12/01/19 15:15:00 EDT Start Date: 12/01/19 Status: OrderedPrometrium 200 mg oral capsule See Instructions, Insert 1 vaginally TID, # 90 capsule, 5 Refills, Maintenance, 02/29/20 15:45:00 EDT, [facility]/pharmacy #[id number], 166, cm, 02/23/20 11:28:00 EDT, Height Start Date: 02/29/20 Status: OrderedValium 5 mg oral tablet See Instructions, 1 tablet po 1 hour before procedure, # 1 tablet, Refills 0, Tot. Refills 0, Maintenance, 11/14/19 16:35:00 EST, Instructions Replace Required Details, Route to Pharmacy Electronically, [facility]/pharmacy #[id number], 166, cm, 11/22/17 8:50:00 ED... Start Date: 11/14/19 Status: OrderedValium 5 mg oral tablet See Instructions, Take 1 tablet 1 hour prior to TRANSFER. May repeat x 1., # 2 tablet, Refills 0, Tot. Refills 0, Maintenance, 05/21/20 8:28:00 EDT, Instructions Replace Required Details, Route to Pharmacy Electronically, [facility]/pharmacy #[id number], 166, cm,... Start Date: 05/21/20 Status: Ordered Problem List No Known Problems Social History Social History Type Response Smoking Status Never (less than 100 in life time); Tobacco user in household: No; Refused tobacco status screen entered on: 02/23/20 Sex
--- OUTSIDE RECORDS SUMMARY | 2022-06-27 02:36 | XMS_ITS | Continuity of Care Document ---
:1980 Author Organization [facility] Yoan Joyces Estelita Address [address] [place] [address], [address] [place] [phone]- Care Team Providers Name Role Phone Nivia JORGENSEN, Trav Gaines Primary Care Physician [place] [facility] [place] [facility] [address], [address] [place] [phone]- [facility] Allergies, Adverse Reactions, Alerts Substance Reaction Severity Status NKA Active Medications 0.5cc insulin syringes 0.5cc insulin syringes, daily, Subcutaneous Injection, Daily, # 30 each, Refills 5, Tot. Refills 5, Maintenance, To use with Microdose Lupron, 04/15/20 10:26:00 EDT, pt is self pay, Compound, 166, cm, 02/23/20 11:28:00 EDT, Height Start Date: 04/15/20 Status: Rkshxsi41 g 1/2 inch needle 27 g 1/2 inch needle, See Instructions, # 20 each, Refills 1, Tot. Refills 1, Maintenance, To use toadminsiter Omnitrope, 04/12/20 16:18:00 EDT, Compound, 166, cm, 02/23/20 11:28:00 EDT, Height Start Date: 04/12/20 Status: Oekongv98d 1/2 needles 27g 1/2 needles, See Instructions, [...] Maintenance, 11/25/17 16:42:07, Route to Pharmacy Electronically, [id number], [facility] [address] Start Date: 11/25/17 Stop Date: 08/22/18 Status: [...] tablet, 5 Refills, Maintenance, 04/15/20 16:29:00 EDT, [facility]/pharmacy #[id number], 166, cm, 02/23/20 11:28:00 EDT, [...] 2 Refills, Maintenance, 04/04/20 13:53:00 EDT, Tablet, [facility]/pharmacy #[id number], 1 tablet By Mouth Daily,Instr:Take [...] capsule, 5 Refills, Maintenance, 02/29/20 15:45:00 EDT, [facility]/pharmacy #[id number], 166, cm, 02/23/20 11:28:00 EDT, [...]
--- OUTSIDE RECORDS SUMMARY | 2022-06-27 02:36 | XMS_ITS | Continuity of Care Document ---
:1980 Author Organization [facility] Address [address] [place] [address], 4th [address] [place] [address]- Care Team Providers Name Role Phone Nivia JORGENSEN, Trav Gaines Primary Care Physician [place] [facility] [place]): [place]20 [facility] [address] [place] [address], [address]th [address] [place] [phone]- [facility] Attending Physician: Not on Staff, Attending MD Referring Physician: Nancy Thompson MD Allergies, Adverse Reactions, [...] Maintenance, 11/25/17 16:42:07, Route to Pharmacy Electronically, [id number], [facility] [address] Start Date: 11/25/17 Stop Date: 08/22/18 Status: [...] capsule, 5 Refills, Maintenance, 02/29/20 15:45:00 EDT, [facility]/pharmacy #[id number], 166, cm, 02/23/20 11:28:00 EDT, Height Start Date: 02/29/20 Status: OrderedValium 5 mg oral tablet See Instructions, 1 tablet po 1 hour before procedure, # 1 tablet, Refills 0, Tot. Refills 0, Maintenance, 11/14/19 16:35:00 EST, Instructions Replace Required Details, Route to Pharmacy Electronically, [facility]/pharmacy #[id number], 166, cm, 11/22/17 8:50:00 ED... Start Date: 11/14/19 Status: Ordered Problem List No Known Problems Social History Social History Type Response Smoking Status Never (less than 100 in life time); Tobacco user in household: No; Refused tobacco status screen entered on: 02/23/20 Sex
--- OUTSIDE RECORDS SUMMARY | 2022-06-27 02:36 | XMS_ITS | Continuity of Care Document ---
:1980 Author Organization [facility] Address [address] [place] [address]- Care Team Providers Name Role Phone Nivia JORGENSEN, Trav Gaines Primary Care Physician [place] [facility] [place](s): 05/17/20 - 06/20/[address] [address]- [facility] Attending Physician: Monalisa Gaytan MD Allergies, Adverse Reactions, Alerts Substance Reaction Severity Status NKA Active Medications 0.5cc insulin syringes 0.5cc insulin syringes, daily, Subcutaneous Injection, Daily, # 30 each, Refills 5, Tot. Refills 5, Maintenance, To use with Microdose Lupron, 04/15/20 10:26:00 EDT, pt is self pay, Compound, 166, cm, 02/23/20 11:28:00 EDT, Height Start Date: 04/15/20 Status: Rsylyiy59 g 1/2 inch needle 27 g 1/2 inch needle, See Instructions, # 20 each, Refills 1, Tot. Refills 1, Maintenance, To use toadminsiter Omnitrope, 04/12/20 16:18:00 EDT, Compound, 166, cm, 02/23/20 11:28:00 EDT, Height Start Date: 04/12/20 Status: [id number] 1/2 needles 27g 1/2 needles, See Instructions, [...] Maintenance, 11/25/17 16:42:07, Route to Pharmacy Electronically, [id number], [facility] [address] Start Date: 11/25/17 Stop Date: 08/22/18 Status: [...] tablet, 5 Refills, Maintenance, 04/15/20 16:29:00 EDT, [facility]/pharmacy #[id number], 166, cm, 02/23/20 11:28:00 [...] 2 Refills, Maintenance, 04/04/20 13:53:00 EDT, Tablet, [facility]/pharmacy #[id number], 1 tablet By Mouth [...] 05/21/20 8:28:00 EDT, Route to Pharmacy Electronically, [facility]/pharmacy #[id number], Partial fill upon patient request, 166, cm, 04/30/20 15:33... Start Date: 05/21/20 Status: OrderedPrenatal Multivitamins By Mouth, Daily, 0 Refills, Maintenance, 12/01/19 15:15:00 EDT Start Date: 12/01/19 Status: OrderedPrometrium 200 mg oral capsule See Instructions, Insert 1 vaginally TID, # 90 capsule, 5 Refills, Maintenance, 02/29/20 15:45:00 EDT, [facility]/pharmacy #[id number], 166, cm, 02/23/20 11:28:00 EDT, Height Start Date: 02/29/20 Status: OrderedValium 5 mg oral tablet See Instructions, 1 tablet po 1 hour before procedure, # 1 tablet, Refills 0, Tot. Refills 0, Maintenance, 11/14/19 16:35:00 EST, Instructions Replace Required Details, Route to Pharmacy Electronically, [facility]/pharmacy #[id number], 166, cm, 11/22/17 8:50:00 ED... Start Date: 11/14/19 Status: OrderedValium 5 mg oral tablet See Instructions, Take 1 tablet 1 hour prior to TRANSFER. May repeat x 1., # 2 tablet, Refills 0, Tot. Refills 0, Maintenance, 05/21/20 8:28:00 EDT, Instructions Replace Required Details, Route to Pharmacy Electronically, [facility]/pharmacy #[id number], 166, cm,... Start Date: 05/21/20 Status: Ordered Problem List No Known Problems Social History Social History Type Response Smoking Status Never (less than 100 in life time); Tobacco user in household: No; Refused tobacco status screen entered on: 02/23/20 Sex
--- OUTSIDE RECORDS SUMMARY | 2022-06-27 02:36 | XMS_ITS | Continuity of Care Document ---
:1980 Author Organization [facility] Address [address] [place] [address], 4th Floor [address] [place] [address]- Care Team Providers Name Role Phone Trav Gonzáles MD Primary Care Physician [place] [facility] [place]19 [facility] [address] [place] [address], 4th Floor [address] [place] [address]- [facility] Attending Physician: Nancy Thompson MD Referring Physician: Trav Gonzáles MD Allergies, Adverse Reactions, Alerts Substance Reaction Severity Status NKA Active Medications amitriptyline 10 mg oral tablet 10 mg, 1, tablet, By Mouth, Daily at bedtime, # 90 tablet, Refills 2, Tot. Refills 2, Maintenance, 11/25/17 16:42:07, Route to Pharmacy Electronically, [id number], [facility] [address] Start Date: 11/25/17 Stop Date: 08/22/18 Status: OrderedPrenatal Multivitamins By Mouth, Daily, 0 Refills, Maintenance, 12/01/19 15:15:00 EDT Start Date: 12/01/19 Status: OrderedValium 5 mg oral tablet See Instructions, 1 tablet po 1 hour before procedure, # 1 tablet, Refills 0, Tot. Refills 0, Maintenance, 11/14/19 16:35:00 EST, Instructions Replace Required Details, Route to Pharmacy Electronically, [facility]/pharmacy #[id number], 166, cm, 11/22/17 8:50:00 ED... Start Date: 11/14/19 Status: Ordered Problem List No Known Problems Vital Signs Most recent to oldest [Reference Range]: 1 2 Height 166 cm 166 cm (12/01/19 11:30 AM) (12/01/19 11:30 AM) Social History Social History Type Response Smoking Status Refused tobacco status scree n entered on: 12/01/19 Sex
--- OUTSIDE RECORDS SUMMARY | 2022-06-27 02:36 | XMS_ITS | Continuity of Care Document ---
:1980 Author Organization [facility] Address [address] [facility], 4th Floor [address] [place] [address]- Care Team Providers Name Role Phone Trav Gonzáles MD Primary Care Physician [place] [facility] [place] 05/[place]20 [facility] [address] [place] [address], 4th [address] [place] [address]- [facility] Attending Physician: Ofelia Dinh MD Referring Physician: Trav Gonzáles MD Allergies, Adverse Reactions, Alerts Substance Reaction Severity Status NKA Active Medications 0.5cc insulin syringes 0.5cc insulin syringes, daily, Subcutaneous Injection, Daily, # 30 each, Refills 5, Tot. Refills 5, Maintenance, To use with Microdose Lupron, 04/15/20 10:26:00 EDT, pt is self pay, Compound, 166, cm, 02/23/20 11:28:00 EDT, Height Start Date: 04/15/20 Status: Ijfqjmv86 g 1/2 inch needle 27 g 1/2 inch needle, See Instructions, # 20 each, Refills 1, Tot. Refills 1, Maintenance, To use toadminsiter Omnitrope, 04/12/20 16:18:00 EDT, Compound, 166, cm, 02/23/20 11:28:00 EDT, Height Start Date: 04/12/20 Status: Thcqybm97s 1/2 needles 27g 1/2 needles, See Instructions, [...] Maintenance, 11/25/17 16:42:07, Route to Pharmacy Electronically, [id number], [facility] [address] Start Date: 11/25/17 Stop Date: 08/22/18 Status: [...] tablet, 5 Refills, Maintenance, 04/15/20 16:29:00 EDT, [facility]/pharmacy #[id number], 166, cm, 02/23/20 11:28:00 EDT, [...] 04/12/20 16:18:00 EDT, [facility], , 166, cristy, ... Start Date: 04/12/20 Status: OrderedPrenatal Multivitamins By Mouth, Daily, 0 Refills, Maintenance, 12/01/19 15:15:00 EDT Start Date: 12/01/19 Status: OrderedPrometrium 200 mg oral capsule See Instructions, Insert 1 vaginally TID, # 90 capsule, 5 Refills, Maintenance, 02/29/20 15:45:00 EDT, [facility]/pharmacy #[id number], 166, cm, 02/23/20 11:28:00 EDT, Height Start Date: 02/29/20 Status: OrderedValium 5 mg oral tablet See Instructions, 1 tablet po 1 hour before procedure, # 1 tablet, Refills 0, Tot. Refills 0, Maintenance, 11/14/19 16:35:00 EST, Instructions Replace Required Details, Route to Pharmacy Electronically, [facility]/pharmacy #[id number], 166, cm, 11/22/17 8:50:00 ED... Start Date: 11/14/19 Status: Ordered Problem List No Known Problems Social History Social History Type Response Smoking Status Never (less than 100 in life time); Tobacco user in household: No; Refused tobacco status screen entered on: 02/23/20 Sex
--- OUTSIDE RECORDS SUMMARY | 2022-06-27 02:36 | XMS_ITS | Continuity of Care Document ---
:1980 Author Organization [facility] Address [address] [facility], 4th Floor [address] [place] [address]- Care Team Providers Name Role Phone Nivia JORGENSEN, Trav Gaines Primary Care Physician En[place] [facility] [place](s): 04/04/20 - 05/04/20 [facility] [address] [place] [address], 4th [address] [place] [address]- [facility] Allergies, Adverse Reactions, Alerts Substance Reaction Severity Status NKA Active Medications 0.5cc insulin syringes 0.5cc insulin syringes, daily, Subcutaneous Injection, Daily, # 30 each, Refills 5, Tot. Refills 5, Maintenance, To use with Microdose Lupron, 04/15/20 10:26:00 EDT, pt is self pay, Compound, 166, cm, 02/23/20 11:28:00 EDT, Height Start Date: 04/15/20 Status: Fmtzkiw91 g 1/2 inch needle 27 g 1/2 inch needle, See Instructions, # 20 each, Refills 1, Tot. Refills 1, Maintenance, To use toadminsiter Omnitrope, 04/12/20 16:18:00 EDT, Compound, 166, cm, 02/23/20 11:28:00 EDT, Height Start Date: 04/12/20 Status: Cxsutxi96z 1/2 needles 27g 1/2 needles, See Instructions, [...] Maintenance, 11/25/17 16:42:07, Route to Pharmacy Electronically, [id number], [facility] [address] Start Date: 11/25/17 Stop Date: 08/22/18 Status: [...] 2 Refills, Maintenance, 04/04/20 13:53:00 EDT, Tablet, [facility]/pharmacy #[id number], 1 tablet By Mouth Daily,Instr:Take [...]
--- OUTSIDE RECORDS SUMMARY | 2022-06-27 02:36 | XMS_ITS | Continuity of Care Document ---
:1980 Author Organization [facility] Address [address] [place] [address]- Care Team Providers Name Role Phone Nivia JORGENSEN, Trav Gaines Primary Care Physician Encounter [facility] [place] Date(s): 05/24/20 - 06/25/[address] [address]- [facility] Attending Physician: Sujata Ponce MD Admitting Physician: Sujata Ponce MD Allergies, Adverse Reactions, Alerts Substance Reaction Severity Status NKA Active Medications 0.5cc insulin syringes 0.5cc insulin syringes, daily, Subcutaneous Injection, Daily, # 30 each, Refills 5, Tot. Refills 5, Maintenance, To use with Microdose Lupron, 04/15/20 10:26:00 EDT, pt is self pay, Compound, 166, cm, 02/23/20 11:28:00 EDT, Height Start Date: 04/15/20 Status: Qbnazoe94 g 1/2 inch needle 27 g 1/2 inch needle, See Instructions, # 20 each, Refills 1, Tot. Refills 1, Maintenance, To use toadminsiter Omnitrope, 04/12/20 16:18:00 EDT, Compound, 166, cm, 02/23/20 11:28:00 EDT, Height Start Date: 04/12/20 Status: Qgfkzre29f 1/2 needles 27g 1/2 needles, See Instructions, [...] Maintenance, 11/25/17 16:42:07, Route to Pharmacy Electronically, [id number], [facility] [id number] Start Date: 11/25/17 Stop Date: 08/22/18 Status: [...]
--- OUTSIDE RECORDS SUMMARY | 2022-06-27 02:37 | XMS_ITS | Continuity of Care Document ---
:1980 Author Organization [facility] Yoan Capone Address [address] [place] [address], [address] [place] [address]- Care Team Providers Name Role Phone Nivia JORGENSEN, Trav Gaines Primary Care Physician En[place] [facility] [place] Date(s): 05/27/20 - 06/26/20 [facility] [address] [address]- [facility] Allergies, Adverse Reactions, Alerts Substance Reaction Severity Status NKA Active Medications 0.5cc insulin syringes 0.5cc insulin syringes, daily, Subcutaneous Injection, Daily, # 30 each, Refills 5, Tot. Refills 5, Maintenance, To use with Microdose Lupron, 04/15/20 10:26:00 EDT, pt is self pay, Compound, 166, cm, 02/23/20 11:28:00 EDT, Height Start Date: 04/15/20 Status: Tqczdoq43 g 1/2 inch needle 27 g 1/2 inch needle, See Instructions, # 20 each, Refills 1, Tot. Refills 1, Maintenance, To use toadminsiter Omnitrope, 04/12/20 16:18:00 EDT, Compound, 166, cm, 02/23/20 11:28:00 EDT, Height Start Date: 04/12/20 Status: Rawanla98f 1/2 needles 27g 1/2 needles, See Instructions, [...] Maintenance, 11/25/17 16:42:07, Route to Pharmacy Electronically, [id number], [facility] [address] Start Date: 11/25/17 Stop Date: 08/22/18 Status: [...] tablet, 5 Refills, Maintenance, 04/15/20 16:29:00 EDT, [facility]/pharmacy #[id number], 166, cm, 02/23/20 11:28:00 EDT, Height [...] 2 Refills, Maintenance, 04/04/20 13:53:00 EDT, Tablet, [facility]/pharmacy #[id number], 1 tablet By Mouth Daily,Instr:Take only [...] 05/21/20 8:28:00 EDT, Route to Pharmacy Electronically, [facility]/pharmacy #[id number], Partial fill upon patient request, 166, cm, 04/30/20 15:33... Start Date: 05/21/20 Status: OrderedPrenatal Multivitamins By Mouth, Daily, 0 Refills, Maintenance, 12/01/19 15:15:00 EDT Start Date: 12/01/19 Status: OrderedPrometrium 200 mg oral capsule See Instructions, Insert 1 vaginally TID, # 90 capsule, 5 Refills, Maintenance, 02/29/20 15:45:00 EDT, [facility]/pharmacy #[id number], 166, cm, 02/23/20 11:28:00 EDT, Height Start Date: 02/29/20 Status: OrderedValium 5 mg oral tablet See Instructions, 1 tablet po 1 hour before procedure, # 1 tablet, Refills 0, Tot. Refills 0, Maintenance, 11/14/19 16:35:00 EST, Instructions Replace Required Details, Route to Pharmacy Electronically, [facility]/pharmacy #[id number], 166, cm, 11/22/17 8:50:00 ED... Start Date: 11/14/19 Status: OrderedValium 5 mg oral tablet See Instructions, Take 1 tablet 1 hour prior to TRANSFER. May repeat x 1., # 2 tablet, Refills 0, Tot. Refills 0, Maintenance, 05/21/20 8:28:00 EDT, Instructions Replace Required Details, Route to Pharmacy Electronically, [facility]/pharmacy #[id number], 166, cm,... Start Date: 05/21/20 Status: Ordered Problem List No Known Problems Social History Social History Type Response Smoking Status Never (less than 100 in life time); Tobacco user in household: No; Refused tobacco status screen entered on: 02/23/20 Sex
--- OUTSIDE RECORDS SUMMARY | 2022-06-27 02:37 | XMS_ITS | Continuity of Care Document ---
:1980 Author Organization [facility] Address [address] [facility], 4th Floor [address] [place] [address]- Care Team Providers Name Role Phone Nivia JORGENSEN, Trav Gaines Primary Care Physician Encounter [facility] [place] Date(s): 04/12/20 - 05/12/20 [facility] [address] [place] [address], 4th Floor [address] [place] [address]- [facility] Allergies, Adverse Reactions, Alerts Substance Reaction Severity Status NKA Active Medications 0.5cc insulin syringes 0.5cc insulin syringes, daily, Subcutaneous Injection, Daily, # 30 each, Refills 5, Tot. Refills 5, Maintenance, To use with Microdose Lupron, 04/15/20 10:26:00 EDT, pt is self pay, Compound, 166, cm, 02/23/20 11:28:00 EDT, Height Start Date: 04/15/20 Status: Votnpph77 g 1/2 inch needle 27 g 1/2 inch needle, See Instructions, # 20 each, Refills 1, Tot. Refills 1, Maintenance, To use toadminsiter Omnitrope, 04/12/20 16:18:00 EDT, Compound, 166, cm, 02/23/20 11:28:00 EDT, Height Start Date: 04/12/20 Status: Kwcuzaz73u 1/2 needles 27g 1/2 needles, See Instructions, [...] Maintenance, 11/25/17 16:42:07, Route to Pharmacy Electronically, [id number], [facility] [id number] Start Date: 11/25/17 Stop Date: 08/22/18 Status: [...] tablet, 5 Refills, Maintenance, 04/15/20 16:29:00 EDT, [facility]/pharmacy #[id number], 166, cm, 02/23/20 11:28:00 EDT, Height [...] 2 Refills, Maintenance, 04/04/20 13:53:00 EDT, Tablet, [facility]/pharmacy #[id number], 1 tablet By Mouth Daily,Instr:Take only [...]
--- OUTSIDE RECORDS SUMMARY | 2022-06-27 02:37 | XMS_ITS | Continuity of Care Document ---
:1980 Author Organization [facility] Address [address] [place] [address], 4th Floor [address] [place] [address]- Care Team Providers Name Role Phone Nivia JORGENSEN, Trav Gaines Primary Care Physician Encounter [facility] [place] Date(s): 11/23/19 - 11/30/19 [facility] [address] [place] [address], [address]th [address] [place] [address]- [facility] Attending Physician: Nancy Thompson MD Allergies, [...] Maintenance, 11/25/17 16:42:07, Route to Pharmacy Electronically, [id number], [facility] [address] Start Date: 11/25/17 Stop Date: 08/22/18 Status: Orderedazithromycin 500 mg oral tablet 2 tablet = 1,000 mg, By Mouth, Once, # 2 tablet, 0 Refills, Soft Stop, Tablet Start Date: 10/06/12 Stop Date: 10/07/12 Status: OrderedDiflucan 150 mg oral tablet 1 tablet = 150 mg, By Mouth, Once, # 1 tablet, 0 Refills, Soft Stop, Tablet Start Date: 10/06/12 Status: OrderedMetroGel-Vaginal 0.75% vaginal gel with applicator [...] Replace Required Details, Route to Pharmacy Electronically, [facility]/pharmacy #[id number], 166, cm, 11/22/17 8:50:00 ED... Start Date: 11/14/19 Status: OrderedZofran ODT 4 mg oral tablet, disintegrating 1 tablet = 4 mg, By Mouth, 3 times a day, # 10 tablet, 0 Refills, Maintenance, DIS Tablet Start Date: 08/16/11 Status: Ordered Problem List No Known Problems
--- OUTSIDE RECORDS SUMMARY | 2022-06-27 02:37 | XMS_ITS | Continuity of Care Document ---
:1980 Author Organization [facility] Address [address] [place] [address], 4th [address] [place] [address]- Care Team Providers Name Role Phone Nivia JORGENSEN, Trav Gaines Primary Care Physician En[place] [facility] [place](s): 07/16/20 - 07/23/20 [facility] [address] [place] [address], [address] [place] [address] Attending Physician: Nancy Thompson MD Allergies, Adverse Reactions, Alerts Substance Reaction Severity Status NKA Active Medications 0.5cc insulin syringes 0.5cc insulin syringes, daily, Subcutaneous Injection, Daily, # 30 each, Refills 5, Tot. Refills 5, Maintenance, To use with Microdose Lupron, 04/15/20 10:26:00 EDT, pt is self pay, Compound, 166, cm, 02/23/20 11:28:00 EDT, Height Start Date: 04/15/20 Status: Yfpgruq11 g 1/2 inch needle 27 g 1/2 inch needle, See Instructions, # 20 each, Refills 1, Tot. Refills 1, Maintenance, To use toadminsiter Omnitrope, 04/12/20 16:18:00 EDT, Compound, 166, cm, 02/23/20 11:28:00 EDT, Height Start Date: 04/12/20 Status: Prafnup31t 1/2 needles 27g 1/2 needles, See Instructions, [...] Maintenance, 11/25/17 16:42:07, Route to Pharmacy Electronically, [id number], [facility] [address] Start Date: 11/25/17 Stop Date: 08/22/18 Status: [...] tablet, 5 Refills, Maintenance, 04/15/20 16:29:00 EDT, [facility]/pharmacy #[id number], 166, cm, 02/23/20 11:28:00 EDT, Height Start Date: 04/15/20 Status: OrderedEstrace 2 mg oral tablet 1 tablet = 2 mg, By Mouth, 2 times a day, high dose for an IVF cycle, # 60 tablet, 5 Refills, Maintenance, 02/29/20 15:45:00 EDT, [facility]acy #[id number], 166, cm, 02/23/20 11:28:00 EDT, Height Start Date: 02/29/20 Status: OrderedGabapentin By Mouth, 0 Refills, Maintenance, 07/15/20 15:30:00 EST Start Date: 07/15/20 Status: OrderedGonal-F 1050 units subcutaneous injection = [...] 2 Refills, Maintenance, 04/04/20 13:53:00 EDT, Tablet, [facility]/pharmacy #[id number], 1 tablet By Mouth Daily,Instr:Take only [...] 166, cm, ... Start Date: 04/12/20 Status: OrderedOxyContin See Instructions, 1 tablet By Mouth per day PRN, 0 Refills, Maintenance, 07/15/20 15:31:00 EST, Partial fill upon patient request Start Date: 07/15/20 Status: OrderedPrenatal Multivitamins By Mouth, Daily, 0 Refills, Maintenance, 12/01/19 15:15:00 EDT Start Date: 12/01/19 Status: OrderedPrometrium 200 mg oral capsule See Instructions, Insert 1 vaginally TID, # 90 capsule, 5 Refills, Maintenance, 02/29/20 15:45:00 EDT, [id number], 166, cm, 02/23/20 11:28:00 EDT, Height Start Date: 02/29/20 Status: Ordered Problem List No Known Problems Vital Signs Most recent to oldest [Reference Range]: 1 Height 166 cm (07/15/20 3:22 PM) Social History Social History Type Response Smoking Status Never (less than 100 in life time); Tobacco user in household: No; Refused tobacco status screen entered on: 02/23/20 Sex
--- OUTSIDE RECORDS SUMMARY | 2022-06-27 02:37 | XMS_ITS | Continuity of Care Document ---
:1980 Author Organization [facility] Yoan Capone Address [address] [place] [address]- Care Team Providers Name Role Phone Nivia JORGENSEN, Trav Gaines Primary Care Physician En[place] [facility] [place] Date(s): 04/09/20 - 05/09/20 [facility] Will [address] [address]- [facility] Allergies, Adverse Reactions, Alerts Substance Reaction Severity Status NKA Active Medications 0.5cc insulin syringes 0.5cc insulin syringes, daily, Subcutaneous Injection, Daily, # 30 each, Refills 5, Tot. Refills 5, Maintenance, To use with Microdose Lupron, 04/15/20 10:26:00 EDT, pt is self pay, Compound, 166, cm, 02/23/20 11:28:00 EDT, Height Start Date: 04/15/20 Status: Hehfsoa74 g 1/2 inch needle 27 g 1/2 inch needle, See Instructions, # 20 each, Refills 1, Tot. Refills 1, Maintenance, To use toadminsiter Omnitrope, 04/12/20 16:18:00 EDT, Compound, 166, cm, 02/23/20 11:28:00 EDT, Height Start Date: 04/12/20 Status: Hcbsqev72e 1/2 needles 27g 1/2 needles, See Instructions, [...] Maintenance, 11/25/17 16:42:07, Route to Pharmacy Electronically, [id number], [facility] [address] Start Date: 11/25/17 Stop Date: 08/22/18 Status: [...] tablet, 5 Refills, Maintenance, 04/15/20 16:29:00 EDT, [facility]/pharmacy #[id number], 166, cm, 02/23/20 11:28:00 EDT, [...] 2 Refills, Maintenance, 04/04/20 13:53:00 EDT, Tablet, [facility]/pharmacy #[id number], 1 tablet By Mouth Daily,Instr:Take [...] capsule, 5 Refills, Maintenance, 02/29/20 15:45:00 EDT, [facility]/pharmacy #[id number], 166, cm, 02/23/20 11:28:00 EDT, [...]
--- OUTSIDE RECORDS SUMMARY | 2022-06-27 02:37 | XMS_ITS | Continuity of Care Document ---
:1980 Author Organization [facility] Address [address] [place] [address], [address]th [address] [place] [address]- Care Team Providers Name Role Phone Nivia JORGENSEN, Trav Gaines Primary Care Physician [place] [facility] [place]20 [facility] [address] [place] [address], 4th [address] [place] [address]- [facility] Allergies, Adverse Reactions, Alerts Substance Reaction Severity Status NKA Active Medications 0.5cc insulin syringes 0.5cc insulin syringes, daily, Subcutaneous Injection, Daily, # 30 each, Refills 5, Tot. Refills 5, Maintenance, To use with Microdose Lupron, 04/15/20 10:26:00 EDT, pt is self pay, Compound, 166, cm, 02/23/20 11:28:00 EDT, Height Start Date: 04/15/20 Status: Hxgarmc18 g 1/2 inch needle 27 g 1/2 inch needle, See Instructions, # 20 each, Refills 1, Tot. Refills 1, Maintenance, To use toadminsiter Omnitrope, 04/12/20 16:18:00 EDT, Compound, 166, cm, 02/23/20 11:28:00 EDT, Height Start Date: 04/12/20 Status: Nykeiis24b 1/2 needles 27g 1/2 needles, See Instructions, [...] Maintenance, 11/25/17 16:42:07, Route to Pharmacy Electronically, [id number], [facility] [id number] Start Date: 11/25/17 Stop Date: 08/22/18 Status: [...] 2 Refills, Maintenance, 04/04/20 13:53:00 EDT, Tablet, [facility]/pharmacy #[id number], 1 tablet By Mouth Daily,Instr:Take only [...]
--- OUTSIDE RECORDS SUMMARY | 2022-06-27 02:37 | XMS_ITS | Continuity of Care Document ---
:1980 Author Organization [facility] Address [address] [place] [address], 4th Floor [address] [place] [address]- Care Team Providers Name Role Phone Nivia JORGENSEN, Trav Gaines Primary Care Physician [place] [facility] [place] 12/01/19 - 12/11/19 [facility] [address] [place] [address], 4th Floor [address] [place] [address]- [facility] Attending Physician: Karely Mcduffie Admitting Physician: AdmtrKarely Referring Physician: Admtr, Ar8 Allergies, Adverse Reactions, Alerts Substance Reaction Severity Status NKA Active Medications amitriptyline 10 mg oral tablet 10 mg, 1, tablet, By Mouth, Daily at bedtime, # 90 tablet, Refills 2, Tot. Refills 2, Maintenance, 11/25/17 16:42:07, Route to Pharmacy Electronically, [id number], [facility] [id number] Start Date: 11/25/17 Stop Date: 08/22/18 Status: OrderedPrenatal Multivitamins By Mouth, Daily, 0 Refills, Maintenance, 12/01/19 15:15:00 EDT Start Date: 12/01/19 Status: OrderedValium 5 mg oral tablet See Instructions, 1 tablet po 1 hour before procedure, # 1 tablet, Refills 0, Tot. Refills 0, Maintenance, 11/14/19 16:35:00 EST, Instructions Replace Required Details, Route to Pharmacy Electronically, [facility]/pharmacy #[id number], 166, cm, 11/22/17 8:50:00 ED... Start Date: 11/14/19 Status: Ordered Problem List No Known Problems Social History Social History Type Response Smoking Status Refused tobacco status scree n entered on: 12/01/19 Sex
--- OUTSIDE RECORDS SUMMARY | 2022-06-27 02:37 | XMS_ITS | Continuity of Care Document ---
:1980 Author Organization [facility] Address [address] [facility], 4th Floor [address] [place] [address]- Care Team Providers Name Role Phone Trav Gonzáles MD Primary Care Physician [place] [facility] [place] 05/19/20 - 05/26/20 [facility] [address] [place] [address], 4th Floor [address] [place] [address]- [facility] Attending Physician: Monalisa Gaytan MD Referring Physician: Trav Gonzáles MD Allergies, Adverse Reactions, Alerts Substance Reaction Severity Status NKA Active Medications 0.5cc insulin syringes 0.5cc insulin syringes, daily, Subcutaneous Injection, Daily, # 30 each, Refills 5, Tot. Refills 5, Maintenance, To use with Microdose Lupron, 04/15/20 10:26:00 EDT, pt is self pay, Compound, 166, cm, 02/23/20 11:28:00 EDT, Height Start Date: 04/15/20 Status: Ydtqrfq53 g 1/2 inch needle 27 g 1/2 inch needle, See Instructions, # 20 each, Refills 1, Tot. Refills 1, Maintenance, To use toadminsiter Omnitrope, 04/12/20 16:18:00 EDT, Compound, 166, cm, 02/23/20 11:28:00 EDT, Height Start Date: 04/12/20 Status: Vpjwgpb89n 1/2 needles 27g 1/2 needles, See Instructions, [...] Maintenance, 11/25/17 16:42:07, Route to Pharmacy Electronically, [id number], [facility] [id number] Start Date: 11/25/17 Stop Date: 08/22/18 Status: [...] 05/21/20 8:28:00 EDT, [id number] fill upon patient request, 166, [...] Replace Required Details, [id number] 166, cm, 11/22/17 8:50:00 ED... Start Date: 11/14/19 Status: OrderedValium 5 mg oral tablet See Instructions, Take 1 tablet 1 hour prior to TRANSFER. May repeat x 1., # 2 tablet, Refills 0, Tot. Refills 0, Maintenance, 05/21/20 8:28:00 EDT, Instructions Replace Required Details, Route to Pharmacy Electronically, [facility]/pharmacy #[id number], 166, cm,... Start Date: 05/21/20 Status: Ordered Problem List No Known Problems Social History Social History Type Response Smoking Status Never (less than 100 in life time); Tobacco user in household: No; Refused tobacco status screen entered on: 02/23/20 Sex
--- OUTSIDE RECORDS SUMMARY | 2022-06-27 02:37 | XMS_ITS | Continuity of Care Document ---
:1980 Author Organization [facility] Address [address] [place] [address]- Care Team Providers Name Role Phone Trav Gonzáles MD Primary Care Physician [place] [facility] [place] 05/21/20 - 05/21/[address] [address]- [facility] Discharge Disposition: A-D/C Home Attending Physician: Monalisa Gaytan MD Admitting Physician: Monalisa Gaytan MD Referring Physician: Monalisa Gaytan MD Allergies, Adverse Reactions, Alerts Substance Reaction Severity Status NKA Active Medications 0.5cc insulin syringes 0.5cc insulin syringes, daily, Subcutaneous Injection, Daily, # 30 each, Refills 5, Tot. Refills 5, Maintenance, To use with Microdose Lupron, 04/15/20 10:26:00 EDT, pt is self pay, Compound, 166, cm, 02/23/20 11:28:00 EDT, Height Start Date: 04/15/20 Status: Jbcacuj85 g 1/2 inch needle 27 g 1/2 inch needle, See Instructions, # 20 each, Refills 1, Tot. Refills 1, Maintenance, To use toadminsiter Omnitrope, 04/12/20 16:18:00 EDT, Compound, 166, cm, 02/23/20 11:28:00 EDT, Height Start Date: 04/12/20 Status: Pakdtqf53s 1/2 needles 27g 1/2 needles, See Instructions, [...] Maintenance, 11/25/17 16:42:07, Route to Pharmacy Electronically, [id number], [facility] [address] Start Date: 11/25/17 Stop Date: 08/22/18 Status: [...] tablet, 5 Refills, Maintenance, 04/15/20 16:29:00 EDT, [facility]/pharmacy #[id number], 166, cm, 02/23/20 11:28:00 EDT, [...] 2 Refills, Maintenance, 04/04/20 13:53:00 EDT, Tablet, [facility]/pharmacy #[id number], 1 tablet By Mouth Daily,Instr:Take [...] EDT, [facility], , 166, cm, ... Start Date: 04/12/20 Status: OrderedoxyCODONE 5 mg oral tablet 5 mg, 1, tablet, By Mouth, Every 6 hours, PRN, # 10 tablet, Refills 0, Tot. Refills 0, Maintenance, Pain , Moderate, 05/21/20 8:28:00 EDT, [id number] fill upon patient request, 166, cm, 04/30/20 15:33... Start Date: 05/21/20 Status: OrderedPrenatal Multivitamins By Mouth, Daily, 0 Refills, Maintenance, 12/01/19 15:15:00 EDT Start Date: 12/01/19 Status: OrderedPrometrium 200 mg oral capsule See Instructions, Insert 1 vaginally TID, # 90 capsule, 5 Refills, Maintenance, 02/29/20 15:45:00 EDT, [facility]/pharmacy #[id number], 166, cm, 02/23/20 11:28:00 EDT, Height Start Date: 02/29/20 Status: OrderedValium 5 mg oral tablet See Instructions, 1 tablet po 1 hour before procedure, # 1 tablet, Refills 0, Tot. Refills 0, Maintenance, 11/14/19 16:35:00 EST, Instructions Replace Required Details, Route to Pharmacy Electronically, [facility]/pharmacy #[id number], 166, cm, 11/22/17 8:50:00 ED... Start Date: 11/14/19 Status: OrderedValium 5 mg oral tablet See Instructions, Take 1 tablet 1 hour prior to TRANSFER. May repeat x 1., # 2 tablet, Refills 0, Tot. Refills 0, Maintenance, 05/21/20 8:28:00 EDT, Instructions Replace Required Details, Route to Pharmacy Electronically, [facility]/pharmacy #[id number], 166, cm,... Start Date: 05/21/20 Status: Ordered Problem List No Known Problems Social History Social History Type Response Smoking Status Never (less than 100 in life time); Tobacco user in household: No; Refused tobacco status screen entered on: 02/23/20 Sex
--- OUTSIDE RECORDS SUMMARY | 2022-06-27 02:37 | XMS_ITS | Continuity of Care Document ---
:1980 Author Organization [facility] Address [address] [place] [address], 4th Floor [address] [place] [address]- Care Team Providers Name Role Phone Trav Gonzáles MD Primary Care Physician [place] [facility] [place]20 [facility] [address] [place] [address], 4th Floor [address] [place] [address]- [facility] Attending Physician: Nancy [...] Maintenance, 11/25/17 16:42:07, Route to Pharmacy Electronically, [id number], [facility] [address] Start Date: 11/25/17 Stop Date: 08/22/18 Status: [...] capsule, 5 Refills, Maintenance, 02/29/20 15:45:00 EDT, [facility]/pharmacy #[id number], 166, cm, 02/23/20 11:28:00 EDT, Height Start Date: 02/29/20 Status: OrderedValium 5 mg oral tablet See Instructions, 1 tablet po 1 hour before procedure, # 1 tablet, Refills 0, Tot. Refills 0, Maintenance, 11/14/19 16:35:00 EST, Instructions Replace Required Details, Route to Pharmacy Electronically, [facility]/pharmacy #[id number], 166, cm, 11/22/17 8:50:00 ED... Start Date: 11/14/19 Status: Ordered Problem List No Known Problems Social History Social History Type Response Smoking Status Never (less than 100 in life time); Tobacco user in household: No; Refused tobacco status screen entered on: 02/23/20 Sex
--- OUTSIDE RECORDS SUMMARY | 2022-06-27 02:37 | XMS_ITS | Continuity of Care Document ---
:1980 Author Organization [facility] [place] Address [address] [place] [address], 4th Floor [address] [place] [address]- Care Team Providers Name Role Phone Nivia JORGENSEN, Trav Gaines Primary Care Physician [place] [facility] [place]): 03/25/20 - 04/01/20 [facility] [address] [place] [address], [address]th Floor [address] [place] [address]- [facility] Attending Physician: Not on Staff, Attending [...] Maintenance, 11/25/17 16:42:07, Route to Pharmacy Electronically, [id number], [facility] [address] Start Date: 11/25/17 Stop Date: 08/22/18 Status: [...] capsule, 5 Refills, Maintenance, 02/29/20 15:45:00 EDT, [facility]/pharmacy #[id number], 166, cm, 02/23/20 11:28:00 EDT, Height [...]
--- OUTSIDE RECORDS SUMMARY | 2022-06-27 02:37 | XMS_ITS | Continuity of Care Document ---
:1980 Author Organization [facility] Address [address] [place] [address], [address] [place] [address]- Care Team Providers Name Role Phone Nivia JORGENSEN, Trav Gaines Primary Care Physician [place] [facility] [place]13[place] - 04/12/20 [facility] Yoan Solis [address], [address] [place] [address]- [facility] Allergies, Adverse Reactions, Alerts Substance Reaction Severity Status NKA Active Medications 0.5cc insulin syringes 0.5cc insulin syringes, daily, Subcutaneous Injection, Daily, # 30 each, Refills 5, Tot. Refills 5, Maintenance, To use with Microdose Lupron, 04/12/20 14:43:00 EDT, pt is self pay, Compound, 166, cm, 02/23/20 11:28:00 EDT, Height Start Date: 04/12/20 Status: Rptgkzi40 g 1/2 inch needle 27 g 1/2 inch needle, See Instructions, # 20 each, Refills 1, Tot. Refills 1, Maintenance, To use toadminsiter Omnitrope, 04/12/20 16:18:00 EDT, Compound, 166, cm, 02/23/20 11:28:00 EDT, Height Start Date: 04/12/20 Status: Cytksyo52v 1/2 needles 27g 1/2 needles, See Instructions, [...] Maintenance, 11/25/17 16:42:07, Route to Pharmacy Electronically, [id number], [facility] [id number] Start Date: 11/25/17 Stop Date: 08/22/18 Status: [...] capsule, 5 Refills, Maintenance, 02/29/20 15:45:00 EDT, [facility]/pharmacy #[id number], 166, cm, 02/23/20 11:28:00 EDT, Height Start Date: 02/29/20 Status: OrderedValium 5 mg oral tablet See Instructions, 1 tablet po 1 hour before procedure, # 1 tablet, Refills 0, Tot. Refills 0, Maintenance, 11/14/19 16:35:00 EST, Instructions Replace Required Details, Route to Pharmacy Electronically, [facility]/pharmacy #[id number], 166, cm, 11/22/17 8:50:00 ED... Start Date: 11/14/19 Status: Ordered Problem List No Known Problems Social History Social History Type Response Smoking Status Never (less than 100 in life time); Tobacco user in household: No; Refused tobacco status screen entered on: 02/23/20 Sex
--- OUTSIDE RECORDS SUMMARY | 2022-06-27 02:37 | XMS_ITS | Continuity of Care Document ---
:1980 Author Organization [facility] Address [address] [place] [address], 4th Floor [address] [place] [address]- Care Team Providers Name Role Phone Nivia JORGENSEN, Trav Gaines Primary Care Physician [place] [facility] [place] 04/12/20 [facility] [address] [place] [address], [facility] Floor [address] [place] [address]- [facility] Allergies, Adverse Reactions, Alerts Substance Reaction Severity Status NKA Active Medications 0.5cc insulin syringes 0.5cc insulin syringes, daily, Subcutaneous Injection, Daily, # 30 each, Refills 5, Tot. Refills 5, Maintenance, To use with Microdose Lupron, 04/12/20 14:43:00 EDT, pt is self pay, Compound, 166, cm, 02/23/20 11:28:00 EDT, Height Start Date: 04/12/20 Status: Baafjmv39 g 1/2 inch needle 27 g 1/2 inch needle, See Instructions, # 20 each, Refills 1, Tot. Refills 1, Maintenance, To use toadminsiter Omnitrope, 04/12/20 16:18:00 EDT, Compound, 166, cm, 02/23/20 11:28:00 EDT, Height Start Date: 04/12/20 Status: Ngmxwvy75i 1/2 needles 27g 1/2 needles, See Instructions, [...] Maintenance, 11/25/17 16:42:07, Route to Pharmacy Electronically, [id number], [facility] [address] Start Date: 11/25/17 Stop Date: 08/22/18 Status: [...] 2 Refills, Maintenance, 04/04/20 13:53:00 EDT, Tablet, [facility]/pharmacy #[id number], 1 tablet By Mouth Daily,Instr:Take only [...] capsule, 5 Refills, Maintenance, 02/29/20 15:45:00 EDT, [facility]/pharmacy #[id number], 166, cm, 02/23/20 11:28:00 EDT, Height Start Date: 02/29/20 Status: OrderedValium 5 mg oral tablet See Instructions, 1 tablet po 1 hour before procedure, # 1 tablet, Refills 0, Tot. Refills 0, Maintenance, 11/14/19 16:35:00 EST, Instructions Replace Required Details, Route to Pharmacy Electronically, [facility]/pharmacy #[id number], 166, cm, 11/22/17 8:50:00 ED... Start Date: 11/14/19 Status: Ordered Problem List No Known Problems Social History Social History Type Response Smoking Status Never (less than 100 in life time); Tobacco user in household: No; Refused tobacco status screen entered on: 02/23/20 Sex
--- OUTSIDE RECORDS SUMMARY | 2022-06-27 02:37 | XMS_ITS | Continuity of Care Document ---
:1980 Author Organization [facility] Address [address] [facility], 4th Floor [address] [place] [address]- Care Team Providers Name Role Phone Nivia JORGENSEN, Trav Gaines Primary Care Physician [place] [facility] [place](s): 05/16/20 - 06/15/20 [facility] [address] [place] [address], 4th [address] [place] [address]- [facility] Allergies, Adverse Reactions, Alerts Substance Reaction Severity Status NKA Active Medications 0.5cc insulin syringes 0.5cc insulin syringes, daily, Subcutaneous Injection, Daily, # 30 each, Refills 5, Tot. Refills 5, Maintenance, To use with Microdose Lupron, 04/15/20 10:26:00 EDT, pt is self pay, Compound, 166, cm, 02/23/20 11:28:00 EDT, Height Start Date: 04/15/20 Status: Knnssuq17 g 1/2 inch needle 27 g 1/2 inch needle, See Instructions, # 20 each, Refills 1, Tot. Refills 1, Maintenance, To use toadminsiter Omnitrope, 04/12/20 16:18:00 EDT, Compound, 166, cm, 02/23/20 11:28:00 EDT, Height Start Date: 04/12/20 Status: Krhjadf86s 1/2 needles 27g 1/2 needles, See Instructions, [...] Maintenance, 11/25/17 16:42:07, Route to Pharmacy Electronically, [id number], [facility] [address] Start Date: 11/25/17 Stop Date: 08/22/18 Status: [...] tablet, 5 Refills, Maintenance, 04/15/20 16:29:00 EDT, [facility]/pharmacy #[id number], 166, cm, 02/23/20 11:28:00 EDT, [...] 2 Refills, Maintenance, 04/04/20 13:53:00 EDT, Tablet, [facility]/pharmacy #[id number], 1 tablet By Mouth Daily,Instr:Take [...] 05/21/20 8:28:00 EDT, Route to Pharmacy Electronically, [facility]/pharmacy #[id number], Partial fill upon patient request, 166, cm, 04/30/20 15:33... Start Date: 05/21/20 Status: OrderedPrenatal Multivitamins By Mouth, Daily, 0 Refills, Maintenance, 12/01/19 15:15:00 EDT Start Date: 12/01/19 Status: OrderedPrometrium 200 mg oral capsule See Instructions, Insert 1 vaginally TID, # 90 capsule, 5 Refills, Maintenance, 02/29/20 15:45:00 EDT, [facility]/pharmacy #[id number], 166, cm, 02/23/20 11:28:00 EDT, Height Start Date: 02/29/20 Status: OrderedValium 5 mg oral tablet See Instructions, 1 tablet po 1 hour before procedure, # 1 tablet, Refills 0, Tot. Refills 0, Maintenance, 11/14/19 16:35:00 EST, Instructions Replace Required Details, Route to Pharmacy Electronically, [facility]/pharmacy #[id number], 166, cm, 11/22/17 8:50:00 ED... Start Date: 11/14/19 Status: OrderedValium 5 mg oral tablet See Instructions, Take 1 tablet 1 hour prior to TRANSFER. May repeat x 1., # 2 tablet, Refills 0, Tot. Refills 0, Maintenance, 05/21/20 8:28:00 EDT, Instructions Replace Required Details, Route to Pharmacy Electronically, [facility]/pharmacy #[id number], 166, cm,... Start Date: 05/21/20 Status: Ordered Problem List No Known Problems Social History Social History Type Response Smoking Status Never (less than 100 in life time); Tobacco user in household: No; Refused tobacco status screen entered on: 02/23/20 Sex
--- OUTSIDE RECORDS SUMMARY | 2022-06-27 02:37 | XMS_ITS | Continuity of Care Document ---
:1980 Author Organization [facility] Address [address] [place] [address]- Care Team Providers Name Role Phone Nivia JORGENSEN, Trav Gaines Primary Care Physician En[place] [facility] [place](s): 04/12/20 - 05/12/20 [facility] [address] [address]- [facility] Allergies, Adverse Reactions, Alerts Substance Reaction Severity Status NKA Active Medications 0.5cc insulin syringes 0.5cc insulin syringes, daily, Subcutaneous Injection, Daily, # 30 each, Refills 5, Tot. Refills 5, Maintenance, To use with Microdose Lupron, 04/15/20 10:26:00 EDT, pt is self pay, Compound, 166, cm, 02/23/20 11:28:00 EDT, Height Start Date: 04/15/20 Status: Exkecfm59 g 1/2 inch needle 27 g 1/2 inch needle, See Instructions, # 20 each, Refills 1, Tot. Refills 1, Maintenance, To use toadminsiter Omnitrope, 04/12/20 16:18:00 EDT, Compound, 166, cm, 02/23/20 11:28:00 EDT, Height Start Date: 04/12/20 Status: Vvafwrl23f 1/2 needles 27g 1/2 needles, See Instructions, [...] Maintenance, 11/25/17 16:42:07, Route to Pharmacy Electronically, [id number], [facility] [address] Start Date: 11/25/17 Stop Date: 08/22/18 Status: [...] tablet, 5 Refills, Maintenance, 04/15/20 16:29:00 EDT, [facility]/pharmacy #[id number], 166, cm, 02/23/20 [...] 2 Refills, Maintenance, 04/04/20 13:53:00 EDT, Tablet, [facility]/pharmacy #[id number], 1 tablet By [...] capsule, 5 Refills, Maintenance, 02/29/20 15:45:00 EDT, [facility]/pharmacy #[id number], 166, cm, 02/23/20 [...]
--- OUTSIDE RECORDS SUMMARY | 2022-06-27 02:37 | XMS_ITS | Continuity of Care Document ---
:1980 Author Organization [facility] Yoan Joyces Betyu Address [address] [place] [address], [address] [place] [address]- Care Team Providers Name Role Phone Nivia JORGENSEN, Trav Gaines Primary Care Physician [place] [facility] [place] 04/05/20 - 05/05/20 [facility] [address] [address]- [facility] Allergies, Adverse Reactions, Alerts Substance Reaction Severity Status NKA Active Medications 0.5cc insulin syringes 0.5cc insulin syringes, daily, Subcutaneous Injection, Daily, # 30 each, Refills 5, Tot. Refills 5, Maintenance, To use with Microdose Lupron, 04/15/20 10:26:00 EDT, pt is self pay, Compound, 166, cm, 02/23/20 11:28:00 EDT, Height Start Date: 04/15/20 Status: Trrngkv43 g 1/2 inch needle 27 g 1/2 inch needle, See Instructions, # 20 each, Refills 1, Tot. Refills 1, Maintenance, To use toadminsiter Omnitrope, 04/12/20 16:18:00 EDT, Compound, 166, cm, 02/23/20 11:28:00 EDT, Height Start Date: 04/12/20 Status: Apvrzpu72o 1/2 needles 27g 1/2 needles, See Instructions, [...] Maintenance, 11/25/17 16:42:07, Route to Pharmacy Electronically, [id number], [facility] [address] Start Date: 11/25/17 Stop Date: 08/22/18 Status: [...] tablet, 5 Refills, Maintenance, 04/15/20 16:29:00 EDT, [facility]/pharmacy #[id number], 166, cm, 02/23/20 11:28:00 EDT, Height [...] 2 Refills, Maintenance, 04/04/20 13:53:00 EDT, Tablet, [facility]/pharmacy #[id number], 1 tablet By Mouth Daily,Instr:Take only [...] capsule, 5 Refills, Maintenance, 02/29/20 15:45:00 EDT, [facility]/pharmacy #[id number], 166, cm, 02/23/20 11:28:00 EDT, Height [...]
--- OUTSIDE RECORDS SUMMARY | 2022-06-27 02:37 | XMS_ITS | Continuity of Care Document ---
:1980 Author Organization [facility] Address [address] [place] [address]- Care Team Providers Name Role Phone Nivia JORGENSEN, Trav Gaines Primary Care Physician [place] [facility] [place] 04/11/20 - 05/11/[address] [address]- [facility] Allergies, Adverse Reactions, Alerts Substance Reaction Severity Status NKA Active Medications 0.5cc insulin syringes 0.5cc insulin syringes, daily, Subcutaneous Injection, Daily, # 30 each, Refills 5, Tot. Refills 5, Maintenance, To use with Microdose Lupron, 04/15/20 10:26:00 EDT, pt is self pay, Compound, 166, cm, 02/23/20 11:28:00 EDT, Height Start Date: 04/15/20 Status: Dsxxcqt99 g 1/2 inch needle 27 g 1/2 inch needle, See Instructions, # 20 each, Refills 1, Tot. Refills 1, Maintenance, To use toadminsiter Omnitrope, 04/12/20 16:18:00 EDT, Compound, 166, cm, 02/23/20 11:28:00 EDT, Height Start Date: 04/12/20 Status: Effxmvk32p 1/2 needles 27g 1/2 needles, See Instructions, [...] Maintenance, 11/25/17 16:42:07, Route to Pharmacy Electronically, [id number], [facility] [id number] Start Date: 11/25/17 Stop Date: 08/22/18 Status: [...] 2 Refills, Maintenance, 04/04/20 13:53:00 EDT, Tablet, [facility]/pharmacy #[id number], 1 tablet By Mouth Daily,Instr:Take only [...] capsule, 5 Refills, Maintenance, 02/29/20 15:45:00 EDT, [facility]/pharmacy #[id number], 166, cm, 02/23/20 11:28:00 EDT, Height Start Date: 02/29/20 Status: OrderedValium 5 mg oral tablet See Instructions, 1 tablet po 1 hour before procedure, # 1 tablet, Refills 0, Tot. Refills 0, Maintenance, 11/14/19 16:35:00 EST, Instructions Replace Required Details, Route to Pharmacy Electronically, [facility]/pharmacy #[id number], 166, cm, 11/22/17 8:50:00 ED... Start Date: 11/14/19 Status: Ordered Problem List No Known Problems Social History Social History Type Response Smoking Status Never (less than 100 in life time); Tobacco user in household: No; Refused tobacco status screen entered on: 02/23/20 Sex
--- OUTSIDE RECORDS SUMMARY | 2022-06-27 02:37 | XMS_ITS | Continuity of Care Document ---
:1980 Author Organization [facility] Address [address] [facility], 4th Floor [address] [place] [id number]- Care Team Providers Name Role Phone Nivia JORGENSEN, Trav Gainse Primary Care Physician Encounter [facility] Date(s): 05/30/20 - 06/29/20 [facility] [address] [place] [address], [address] [place] [id number]- [facility] Allergies, Adverse Reactions, Alerts Substance Reaction Severity Status NKA Active Medications 0.5cc insulin syringes 0.5cc insulin syringes, daily, Subcutaneous Injection, Daily, # 30 each, Refills 5, Tot. Refills 5, Maintenance, To use with Microdose Lupron, 04/15/20 10:26:00 EDT, pt is self pay, Compound, 166, cm, 02/23/20 11:28:00 EDT, Height Start Date: 04/15/20 Status: [id number] g 1/2 inch needle 27 g 1/2 inch needle, See Instructions, # 20 each, Refills 1, Tot. Refills 1, Maintenance, To use toadminsiter Omnitrope, 04/12/20 16:18:00 EDT, Compound, 166, cm, 02/23/20 11:28:00 EDT, Height Start Date: 04/12/20 Status: [id number] 1/2 needles 27g 1/2 needles, See Instructions, [...] Maintenance, 11/25/17 16:42:07, Route to Pharmacy Electronically, [id number], [id number] Start Date: 11/25/17 Stop Date: 08/22/18 Status: [...] tablet, 5 Refills, Maintenance, 04/15/20 16:29:00 EDT, [facility]/pharmacy #[id number], 166, cm, 02/23/20 [...] 2 Refills, Maintenance, 04/04/20 13:53:00 EDT, Tablet, [facility]/pharmacy #[id number], 1 tablet By [...] 05/21/20 8:28:00 EDT, Route to Pharmacy Electronically, [facility]/pharmacy #[id number], Partial fill upon patient request, 166, cm, 04/30/20 15:33... Start Date: 05/21/20 Status: OrderedPrenatal Multivitamins By Mouth, Daily, 0 Refills, Maintenance, 12/01/19 15:15:00 EDT Start Date: 12/01/19 Status: OrderedPrometrium 200 mg oral capsule See Instructions, Insert 1 vaginally TID, # 90 capsule, 5 Refills, Maintenance, 02/29/20 15:45:00 EDT, [facility]/pharmacy #[id number], 166, cm, 02/23/20 11:28:00 EDT, Height Start Date: 02/29/20 Status: OrderedValium 5 mg oral tablet See Instructions, 1 tablet po 1 hour before procedure, # 1 tablet, Refills 0, Tot. Refills 0, Maintenance, 11/14/19 16:35:00 EST, Instructions Replace Required Details, Route to Pharmacy Electronically, [facility]/pharmacy #[id number], 166, cm, 11/22/17 8:50:00 ED... Start Date: 11/14/19 Status: OrderedValium 5 mg oral tablet See Instructions, Take 1 tablet 1 hour prior to TRANSFER. May repeat x 1., # 2 tablet, Refills 0, Tot. Refills 0, Maintenance, 05/21/20 8:28:00 EDT, Instructions Replace Required Details, Route to Pharmacy Electronically, [facility]/pharmacy #[id number], 166, cm,... Start Date: 05/21/20 Status: Ordered Problem List No Known Problems Social History Social History Type Response Smoking Status Never (less than 100 in life time); Tobacco user in household: No; Refused tobacco status screen entered on: 02/23/20 Sex
[2022-06-27] MEDS: Morphine Sulfate 4 MG/ML CARTRIDGE IM (03:54)
[2022-06-27] MEDS: dexAMETHasone 2 MG TABLET 10 MG PO (03:54)
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
== END 2022-06-27 04:27 | disposition home or self-care (01) ==
PROVIDERS: Emergency Provider Internal Medicine; PCP Internal Medicine
DX: G89.29 Other chronic pain (principal); M54.50 Low back pain, unspecified; Z79.891 Long term (current) use of opiate analgesic
CPT/HCPCS: 96372; 99282; 99284; J2270; J8540

== ENCOUNTER 2023-01-14 04:16 | Emergency (ER) | payer MEDICARE, MEDICAID, SELFPAY ==
[2023-01-14 04:17] VITALS: BP 112/67; PULSE 107; RESP 18; TEMP 36.6; O2SAT 99; BMI 23.6
[2023-01-14 06:38] VITALS: BP 109/60; PULSE 70; RESP 18; TEMP 36.6; O2SAT 100
[2023-01-14 07:25] VITALS: BP 95/44; PULSE 64; TEMP 36.6; O2SAT 99
--- NOTE | 2023-01-14 07:35 | ED_ITS ---
HPI - General Adult General Chief complaint: General Medical Stated complaint: nerve damage pain, migraine Time Seen by Provider: 01/14/23 06:37 Source: patient and RN notes reviewed Mode of arrival: ambulatory Limitations: no limitations History of Present Illness HPI narrative: This is a 42-year-old female, with a past medical history of have cervical spondyloarthritis, migraines, bipolar disorder, PTSD, chronic low back pain, and panic disorder, who presents to the emergency department with complaints of acute on chronic left-sided body pain. 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 She states that she has had no recent trauma or injury. She admits to having some pain with urination, denies any urinary frequency, urgency, hematuria. She denies any saddle anesthesia, urinary or bowel incontinence, urinary or bowel retention. Denies any weakness. Denies any fevers or chills, sore throat, nasal congestion, chest pain, shortness of breath, palpitations nausea, vomiting, abdominal pain, or diarrhea. No other complaints or concerns at this time. MD complaint: Chronic pain Onset (ago): day(s) Location: upper extremity and lower extremity Radiation: back, neck and extremity Severity: severe Quality: burning and aching Pain Consistency: constant Relieving factors: rest Exacerbating factors: movement Associated symptoms: denies other symptoms Treatments prior to arrival: none Related Data Home Medications Medication Instructions Recorded Confirmed gabapentin 400 mg capsule 400 mg PO TID 06/20/21 07/02/21 ibuprofen 800 mg tablet 800 mg PO BID 06/20/21 07/02/21 Previous Rx's Medication Instructions Recorded cyclobenzaprine 5 mg tablet 5 mg PO TID PRN muscle spasm #14 04/06/21 tabs lidocaine 5 % topical patch 1 patch topical DAILY PRN back 04/06/21 pain #15 ea oxycodone 5 mg tablet 5 mg PO Q6H PRN pain #14 tabs 04/06/21 cyclobenzaprine 10 mg tablet 10 mg PO TID PRN muscle spasm #15 04/23/21 tabs oxycodone 5 mg tablet 5 mg PO TID PRN pain #10 tabs 05/04/22 Allergies Allergy/AdvReac Type Severity Reaction Status Date / Time No Known Allergies Allergy Verified 06/27/22 01:40 Review of Systems Review of Systems: Constitutional: No Weight loss, No Fever, No Chills, No Night Sweats, No Fatigue, No Malaise ENT/Mouth: No Hearing loss, No Ear Pain, No Nasal Congestion, No Sinus Pain, No Hoarseness, No sore throat, No Rhinorrhea, No Swallowing Difficulty Eyes: No Eye Pain, No Swelling, No Redness, No Foreign Body, No Discharge, No Vision Changes Cardiovascular: No Chest Pain, No SOB, No Dyspnea on Exertion, No Orthopnea, No Edema, No Palpitations Respiratory: No Cough, No Sputum, No Wheezing, No Smoke Exposure, No Dyspnea Gastrointestinal: No Nausea, No Vomiting, No Diarrhea, No Constipation, No Abdominal pain, No Hematochezia, No Melena Genitourinary: No irregular bleeding, No Dysuria, No Urinary Frequency, No Hematuria, No Urinary Incontinence/retention, No Urgency, No Flank Pain, No Urinary Flow Changes, No Hesitancy Musculoskeletal: No joint pain, +Myalgias, No Joint Swelling Skin: No Skin Lesions, No rash Neuro: No Weakness, No Numbness, No Paresthesias, No Loss of Consciousness, No Dizziness, No Headache Psych: No Anxiety/Panic, No Depression, No SI/HI/AH/VH, No Social Issues, Heme/Lymph: No Bruising, No Bleeding,No Lymphadenopathy Endocrine: No Polyuria, No Polydipsia, No Temperature Intolerance Yes all other systems are reviewed and are negative Constitutional: Constitutional: Reports as per [facility] Past Medical History Attestation statement: The following information was validated with the patient. Medical History Bipolar 1 disorder Cervical spondylarthritis Chronic low back pain without sciatica Migraine NEC/not intrcbl Mood disorder Neural foraminal stenosis of cervical spine Panic disorder PTSD (post-traumatic stress disorder) Spondylolisthesis, cervical region Surgical History S/P appendectomy Social History Social History Smoked in Last 30 Days: No Use of substances other than those prescribed or required for medical reasons: No Advance Directives: No Advance Directives Information Provided: Yes Physical Exam ED Vital Signs: Vital Signs - 24 hr 01/14/23 04:17 01/14/23 06:38 01/14/23 07:25 Temperature 98 F 97.9 F 97.9 F Pulse Rate 107 H 70 64 Respiratory Rate 18 18 Blood Pressure 112/67 109/60 95/44 L Pulse Oximetry 99 100 99 Oxygen Delivery Method Room Air Room Air Room Air 01/14/23 07:54 Temperature Pulse Rate 69 Respiratory Rate Blood Pressure 100/62 Pulse Oximetry Oxygen Delivery Method BMI result Body Mass Index 23.6 Const General: cooperative, comfortable and other (Tearful, under some distress secondary to chronic pain.) Nutritional Appearance: average body habitus Orientation/consciousness: patient oriented x3 Limitations: no limitations HENMT Head: Yes normal to inspection, Yes normocephalic and Yes atraumatic Ears: hearing grossly normal bilaterally and TM's normal bilaterally General nose exam: Normal external nose present Face and sinus: Yes normal facial exam Mouth: Normal oral and palatal mucosa present, oropharynx normal and moist mucous membranes Throat: Yes posterior oropharynx normal Eyes General: appearance normal, both eyes and all related structures Eyelids: Yes eyelids normal Conjunctivae: conjunctivae normal Sclerae: sclerae normal Pupils: Equal, round and reactive pupils present EOM: EOMs intact bilaterally Neck Neck: Yes normal visual inspection, Yes full ROM, Yes no lymphadenopathy and Yes no meningeal signs Lymphatic: no lymphadenopathy noted Chest Chest palpation & inspection: normal inspection of the chest Resp Effort & Inspection: normal respiratory effort and able to speak in complete sentences Auscultation: clear to auscultation bilaterally, no crackles, no rales, no rhonchi and no wheezes Cardio Rate: regular rate Rhythm: regular rhythm Heart sounds: S1 normal heart sound present and S2 normal heart sound present GI Inspection: Yes normal to inspection Palpation (GI): Soft to palpation, nontender and no guarding General: Yes no CVA tenderness Back/Spine/Pelvis Other: Tenderness to palpation over the all midline lumbar spine, and tenderness to palpation over the lumbar paraspinous muscles. No erythema, edema, or increased warmth. Back: no CVA tenderness Cervical Spine: cervical ROM normal, No cervical muscular tenderness, No Cervical spine tenderness and No step off deformity Thoracic/Lumbar Spine: thoracic and lumbar spine normal to inspection Skin General skin exam: no rashes or lesions noted Trauma: no lacerations or abrasions Wounds: no wounds Neuro General: patient oriented x3, moves all extremities, no meningeal signs and CN's II-XI intact bilaterally Cranial nerves: Yes Facial sensation intact/muscles of mastication intact, Yes Equal, round and reactive pupils present, Yes Nystagmus not present, Yes Midline tongue present, Yes Ability to bilaterally rotate head present and Yes Ability to bilaterally elevate shoulders present Extrem General: Yes normal to inspection Right upper extremity: normal to inspection Left upper extremity: normal to inspection Right lower extremity: normal to inspection Left lower extremity: normal to inspection Course Reevaluation(s) Reevaluation #1: Patient appears to be more comfortable, will re-evaluate in half hour to ensure improvement of symptoms. Patient remained stable. Time: 08:52 Reevaluation #2: Patient feeling a little better but still has pain, tearful. Discussed with patient that we cannot continue to administer narcotic medications. She understands. Toradol 30 mg IM administered to patient, discussed at length the importance of following up with her primary care physician as these are the only providers that can better manage her chronic pain. Patient has no red flag back pain symptoms. She understands and agrees with this plan. Patient advised to return with any new or worsening symptoms. She understands that we cannot fill any of her narcotic medications from the emergency department. Patient stable for discharge. Time: 09:34 Medications Administered Discontinued Medications Generic Name Dose Route Start Last Admin Trade Name Mohan PRN Reason Stop Dose Admin Acetaminophen 325 mg 01/14/23 07:20 01/14/23 07:54 Acetaminophen 325 Mg Tablet PO 01/14/23 07:21 325 mg ONCE ONE Administration Cyclobenzaprine HCl 10 mg 01/14/23 07:11 01/14/23 07:54 Cyclobenzaprine Hcl 10 Mg Tablet PO 01/14/23 07:12 10 mg ONCE ONE Administration Ketorolac Tromethamine 30 mg 01/14/23 09:30 01/14/23 09:35 Ketorolac Tromethamine 30 Mg/Ml Vial IM 01/14/23 09:31 30 mg ONCE ONE Administration Oxycodone HCl 7.5 mg 01/14/23 07:20 01/14/23 07:54 Oxycodone Hcl Immed Release 5 Mg Tablet PO 01/14/23 07:21 7.5 mg ONCE ONE Administration Medical Decision Making Medical Decision Making [facility] Narrative: This is a [id number]-female, with a history chronic pain, who presents to the emergency department with acute on chronic neck, arm and leg pain x 2 days. Pt states that she was in a slip and fall accident several years ago, and suffers from cervical spondyloarthritis since, and has been on flexeril, gabapentin, and oxycodone/acetaminophen for several years. She states that her provider who prescribes her this medication has been unable to be reached and she has been without this medication for 2 days. She reports no new trauma or injury. She states that this is consistent with her chronic pain that she suffers from. She is requesting her medications to treat her pain and symptoms. Plan: Review of prescription monitoring program confirms patient does take Percocet 7.5 mg. I think it is reasonable to provide medication to patient as this is a chronic medication that she takes regularly, and has not been filled in the last month. Patient has no new trauma, injury and states that her symptoms are consistent with her chronic pain she has had in the past. No red flag symptoms. There is no indication for any imaging at this time. Patient is hemodynamically stable, afebrile. Patient admits to having dysuria starting yesterday, UA obtained. Will re-evaluate after administration of medication. Differential Diagnosis Differential Diagnoses: The differential diagnosis associated with the presentation includes Acute on chronic pain, cervical spondyloarthritis, UTI, muscle strain/sprain Admission/Observation Consideration of admission/observation: Escalation of care including admission/observation considered Lab Data [facility] Lab Attestation statement: I reviewed the patient's lab results. Labs: Lab Results 01/14/23 Range/Units 08:32 Urine Color Yellow Urine Appearance Clear Urine pH 7.5 (5.0-9.0) Ur Specific [place] 1.015 (1.005-1.025) Urine Protein Negative (Neg-Trace) mg/dL Urine Glucose (UA) Negative (Negative) mg/dL Urine Ketones Negative (Negative) mg/dL Urine Blood Negative (Negative) Urine Nitrite Negative (Negative) Ur Leukocyte Esterase Negative (Negative) Radiology Impression Discussion of test interpretation with radiology: I have reviewed the radiologist's reading. External Record Review External record reviewed: Inpatient record, Office record, Outpatient record, Prior outpatient labs, Prior outpatient radiology, Primary care record and Outside ED record Discharge Plan Discharge Clinical Impression: Chronic low back pain without sciatica Patient Disposition: Home, Self-Care Instructions: Chronic Pain (ED) Additional Instructions: Your urine today showed no signs of infection. We have given you your typical pain medications in the department today. We also administered Toradol. You need to follow-up with your primary care physician as they are the only provider that can manage your pain. If any new or worsening symptoms occur please return for re-evaluation. Prescriptions: No Action cyclobenzaprine 5 mg tablet 5 mg PO TID PRN (Reason: muscle spasm) Qty: 14 0RF oxycodone 5 mg tablet 5 mg PO Q6H PRN (Reason: pain) Qty: 14 0RF lidocaine 5 % adhesive patch,medicated 1 patch topical DAILY PRN (Reason: back pain) Qty: 15 0RF Rx Instructions: leave on most painful area for up to 12 hrs cyclobenzaprine 10 mg tablet 10 mg PO TID PRN (Reason: muscle spasm) Qty: 15 0RF oxycodone 5 mg tablet 5 mg PO TID PRN (Reason: pain) Qty: 10 0RF Rx Instructions: Partial Fill upon patient request. gabapentin 400 mg capsule 400 mg PO TID ibuprofen 800 mg tablet 800 mg PO BID Interventions: ED Discharge Assessment Last Done: 01/14/23 10:18 Discharge Date/Time: 01/14/23 10:18
[2023-01-14 07:54] VITALS: BP 100/62; PULSE 69
[2023-01-14] MEDS: oxyCODONE HCl Immed Release 5 MG TABLET 7.5 MG PO (07:54)
[2023-01-14] MEDS: Acetaminophen 325 MG TABLET PO (07:54)
[2023-01-14] MEDS: Cyclobenzaprine HCl 10 MG TABLET PO (07:54)
--- NOTE | 2023-01-14 07:55 | PC.NURSE ---
pt is alert and oriented, skin appropriate for ethnicity, respirations even and unlabored, pt is reporting her entire left side pain for a couple of days-hx of the same nerve pain, pt is able to move the left sided and all neuro intact
[2023-01-14 08:40] LABS: Appearance Urine Clear; Color Urine Yellow; Glucose Urine UA Negative (Negative); Leukocyte Esterase Urine Negative (Negative); Nitrite Urine Negative (Negative); PH 7.5 (5.0-9.0); Specific Gravity - Urine 1.015 (1.005-1.025); Urine Blood Negative (Negative); Urine Ketones Negative (Negative); Urine Protein Negative (Neg-Trace)
[2023-01-14] MEDS: Ketorolac Tromethamine 30 MG/ML VIAL IM (09:35)
== END 2023-01-14 10:18 | disposition home or self-care (01) ==
PROVIDERS: Physician Assistant Medical; Emergency Provider Emergency Medicine
DX: G89.29 Other chronic pain (principal); M54.50 Low back pain, unspecified; Z79.891 Long term (current) use of opiate analgesic; Z79.899 Other long term (current) drug therapy
CPT/HCPCS: 81003; 96372; 99284; J1885

== ENCOUNTER 2023-03-08 11:46 | Outpatient (REF) | payer MEDICARE, MEDICAID, SELFPAY ==
[2023-03-11 21:17] LABS: HPV mRNA E6/E7 rflx Not Detected (Not Detected)
== END 2023-03-08 11:47 | disposition home or self-care (01) ==
LOC: HO.LNP 11:46
PROVIDERS: PCP Internal Medicine; Visit Provider Obstetrics & Gynecology
DX: Z01.419 Encounter for gynecological examination (general) (routine) without abnormal findings (principal)
CPT/HCPCS: 87624; 88142; G0101

== ENCOUNTER 2023-03-24 10:00 | Outpatient (REF) | payer MEDICARE, MEDICAID, SELFPAY ==
[2023-03-24 14:13] LABS: MANUAL DIFF FLAG NO
[2023-03-24 14:34] LABS: Basophils Percent Auto 0.3 % (0-2); Eosinophils Absolute Auto 0.1 X10*3/uL (0.0-0.4); Hematocrit 41.4 % (37.0-47.0); Hemoglobin 14.1 g/dl (12.0-16.0); Imm Gran Abs Auto 0.01 X10*3/uL (0.00-0.03); Imm Gran Pct Auto 0.2 % (0.0-0.4); Lymphocytes Absolute Auto 1.8 X10*3/uL (1.2-4.9); Lymphocytes Percent Auto 30.4 % (20-40); Mean Corpuscular HGB Conc 34.1 g/dl (31.0-35.0); Mean Corpuscular Hemoglobin 32.1 pg (27.0-33.0); Mean Corpuscular Volume 94.3 fL (80.0-98.0); Mean Platelet Volume 11.3 fL (9.4-12.3); Monocytes Absolute Auto 0.4 X10*3/uL (0.1-1.2); Neutrophils Absolute Auto 3.6 x10*3/uL (2.0-8.3); Neutrophils Percent Auto 61.1 % (45-73); Platelet Count 227 X10*3/uL (160-400); Red Blood Count 4.39 X10*6/uL (4.20-5.50); Red Cell Distribution Width 12.1 % (11.0-16.0); White Blood Count 5.9 X10*3/uL (4.8-10.8)
[2023-03-24 15:12] LABS: Erythrocyte Sedimentation Rate 6 MM/HR (0-20)
[2023-03-24 16:21] LABS: Alanine Aminotransferase 15 U/L (0-31); Albumin Level 4.5 g/dL (3.5-5.0); Alkaline Phosphatase 46 U/L (39-117); Anion Gap 15 (12-20); Aspartate Amino Transferase 18 U/L (5-31); Bilirubin Total 0.5 mg/dL (0.0-1.0); Blood Urea Nitrogen 9 mg/dL (9-16); C Reactive Protein 0.26 mg/dL (< or = 0.50); Calcium 9.9 mg/dL (8.4-10.2); Carbon Dioxide 21 mmol/L (22-29); Chloride 107 mmol/L (96-108); Estimated Glomerular Filt Rate > 60; Glucose Random 82 mg/dL (60-115); Potassium 3.8 mmol/L (3.3-5.1); Sodium 139 mmol/L (135-145); Total Protein 7.1 g/dL (6.5-8.0)
[2023-03-24 16:26] LABS: TSH reflex Free T4 2.05 uIU/mL (0.32-4.0); Vitamin D 25-OH Total 22.1 ng/mL (>30)
== END 2023-03-24 10:01 | disposition home or self-care (01) ==
LOC: HO.CHCLDS 10:00
PROVIDERS: Internal Medicine; Visit Provider Pediatrics
DX: E55.9 Vitamin D deficiency, unspecified (principal); Z00.00 Encounter for general adult medical examination without abnormal findings; M79.641 Pain in right hand; M79.642 Pain in left hand
CPT/HCPCS: 36415; 80053; 82306; 84443; 85025; 85652; 86140

== ENCOUNTER 2023-04-20 12:12 | Outpatient (REF) | payer MEDICARE, MEDICAID, SELFPAY ==
--- NOTE | ~2023-04-20 | XR_ITS ---
EXAMINATION: XR HAND, LEFT CLINICAL INFORMATION: Pain COMPARISON: Hand radiographs 07/20/2011 TECHNIQUE: PA, lateral, and oblique views of the left hand. FINDINGS: Lucency transversing the radial aspect of the third distal phalanx but without overlying soft tissue swelling may reflect an age-indeterminate fracture, recommend correlation with point tenderness and history of trauma. Negative ulnar variance with cyst along the ulnar aspect of the proximal pole of the lunate, recommend correlation with any symptoms of ulnar impaction syndrome. Moderate degenerative changes of the wrist with loss of radiocarpal and radioulnar joint space. Soft tissues are unremarkable. XR/XR hand LT min 3V IMPRESSION: 1. Lucency transversing the radial aspect of the third distal phalanx but without overlying soft tissue swelling may reflect an age-indeterminate fracture, recommend correlation with point tenderness and history of trauma. 2. Negative ulnar variance with cyst along the ulnar aspect of the proximal pole of the lunate, recommend correlation with any symptoms of ulnar impaction syndrome. 3. Moderate degenerative changes of the wrist with loss of radiocarpal and radioulnar joint space.
== END 2023-04-20 12:13 | disposition home or self-care (01) ==
LOC: HO.XRAY 12:12
PROVIDERS: PCP Internal Medicine; Visit Provider Internal Medicine
DX: M79.641 Pain in right hand (principal); M79.642 Pain in left hand
CPT/HCPCS: 73130

== ENCOUNTER 2023-04-21 12:09 | Outpatient (REF) | payer MEDICARE, MEDICAID, SELFPAY ==
--- NOTE | ~2023-04-21 | XR_ITS ---
EXAMINATION: XR HAND, RIGHT CLINICAL INFORMATION: Right hand pain COMPARISON: None available. TECHNIQUE: PA, lateral, and oblique views of the right hand. FINDINGS: No evidence for acute fracture or dislocation. MCP joints are maintained. No distinct erosive process. Small calcification seen just medial to the base of proximal phalanx of the third digit, potentially reflecting a small ossicle or an old chip fragment. IP joints are maintained. XR/XR hand RT min 3V IMPRESSION: No acute process. Small calcification just medial to the base of proximal phalanx of the third digit, likely reflecting small ossicle or old chip fragment.
== END 2023-04-21 12:10 | disposition home or self-care (01) ==
LOC: HO.XRAY 12:09
PROVIDERS: PCP Internal Medicine; Visit Provider Internal Medicine
DX: M79.641 Pain in right hand (principal); M79.642 Pain in left hand
CPT/HCPCS: 73130

== ENCOUNTER 2023-05-25 10:52 | Outpatient (REF) | payer MEDICARE, MEDICAID, SELFPAY ==
--- NOTE | ~2023-05-25 | US_ITS ---
EXAMINATION: US PELVIS CLINICAL INFORMATION: Pelvic and perineal pain. COMPARISON: None available. TECHNIQUE: Ultrasound of the pelvis is performed using both transabdominal and transvaginal transducers along with Doppler. Transvaginal imaging is performed due to inadequate visualization transabdominally. FINDINGS: Uterus: The uterus is anteverted and measures 8.3 x 3.8 x 5.9 cm. The double wall endometrial thickness is 0.3 mm. The uterus is smooth in contour and has normal myometrial echogenicity. No visible fibroid. Adnexa: Both ovaries are visualized. There is normal color flow to the adnexa. There is no ovarian torsion. There is no pelvic ascites or fluid collection. Right ovary measures 2.3 x 1.5 x 1.6 cm., volume of 2.9 mL. Left ovary measures 1.7 x 1.3 x 1.2 cm., volume of 1.4 mL US/US pelvic and transvaginal IMPRESSION: Unremarkable study.
[2023-05-25 11:49] LABS: HCG Quantitative < 2 mIU/mL
== END 2023-05-25 10:53 | disposition home or self-care (01) ==
LOC: HO.US 10:52
PROVIDERS: PCP Internal Medicine; Visit Provider Obstetrics & Gynecology
DX: R10.2 Pelvic and perineal pain (principal)
CPT/HCPCS: 0353U; 36415; 76830; 76856; 81003; 84702; 99212

== ENCOUNTER 2023-05-25 14:27 | Outpatient (AMB) | payer MEDICARE, MEDICAID, SELFPAY ==
[2023-05-25 14:33] VITALS: BP 104/68; BMI 26.1
--- NOTE | 2023-05-25 14:33 | A.OFFVIS_ITS ---
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 It's intermittent in nature lasting few seconds and occurs 3x/day. it is not associated with any constipation, no dysuria, no frequency or incontinence, no n/v, no feverishness. No vaginal discharge or bleeding HCG done today was less than 2, pelvic ultrasound done today was unremarkable [facility] Medical History Cervical spondylarthritis Spondylolisthesis, cervical region Migraine NEC/not intrcbl Mood disorder Bipolar 1 disorder PTSD (post-traumatic stress disorder) Chronic low back pain without sciatica Panic disorder Neural foraminal stenosis of cervical spine Surgical History Hx of cholecystectomy S/P appendectomy Female Reproductive History Menstrual Age of Menarche: 11 control method: none Date of last pap smear: 03/10/23 (negative) Review of Systems Const All systems reviewed & are unremarkable except as noted in HPI and below Physical Exam Vital Signs: Last Vital Signs BP 104/68 05/25/23 14:33 BMI result Body Mass Index 26.1 General: Yes no CVA tenderness External Female Exam: normal external appearance and normal appearance of the urethra Speculum Exam - Vagina: normal appearance of the vagina, normal palpation, no lesions and no masses Speculum Exam - Cervix: normal appearance of the cervix, normal palpation, no lesions, no masses and nontender Bimanual exam- vagina & uterus: normal bimanual exam, normal palpation, uterine size normal, normal palpation, uterine shape normal, No Cervical tenderness present and non-tender Bimanual Exam- Adnexa, other: normal adnexae Back/Spine/Pelvis Back: no CVA tenderness Results AMB Urinalysis, Automated UA Leukoctes 0 Lupillo/uL Last Edit by KARTIK Mace on 05/25/23 14:54 UA Nitrite Negative Last Edit by KARTIK Mace on 05/25/23 14:54 UA Urobilinogen 0 mg/dL Last Edit by Saundra Greenberg KARTKI on 05/25/23 14:54 UA Protein 0 mg/dL Last Edit by Saundra Greenberg Sandra on 05/25/23 14:54 UA pH 6 Last Edit by Saundra Greenberg A on 05/25/23 14:54 UA Blood 0 Roland/uL Last Edit by Saundra Greenberg A on 05/25/23 14:54 UA Specific [place] 1.015 Last Edit by Saundra Greenberg A on 05/25/23 14: 54 UA Ketone Negative Last Edit by Saundra Greenberg Sandra on 05/25/23 14:54 UA Bilirubin 0 mg/dL Last Edit by Saundra Greenberg A on 05/25/23 14:54 UA Glucose 0 mg/dL Last Edit by Saundra Greenberg Sandra on 05/25/23 14:54 Assessment & Plan Assessment & Plan (1) Pelvic pain: Code(s): R10.2 - Pelvic and perineal pain Plan: Urine dip done in the office was negative. GC and chlamydia taken. HCG and pelvic ultrasound done today are both negative. Discussed with the patient the results of her normal hCG, negative urine dip and unremarkable pelvic ultrasound. The differential diagnosis of pelvic pain including but not limited to adnexal, uterine masses, pelvic infections (PID), GI the (Irritable bowel syndrome, diverticulitis, others), musculoskeletal, myofascial pain abdominal wall , adhesions, endometriosis, psychological and others causes. Recommended for patient to see her PCP for further investigation, if PCPs workup is negative, instructed the patient call back. All questions answered, the patient verbalized understanding. Instructed the patient to schedule follow-up appointment in 2 weeks Orders: Orders AMB Urinalysis Automated Today R10.2 - Pelvic and perineal pain Coding Level of Care Code Est Pt Level 3 (48193) Diagnoses Pelvic pain R10.2
== END 2023-05-25 15:09 | disposition home or self-care (01) ==
PROVIDERS: PCP Internal Medicine; Visit Provider Obstetrics & Gynecology
DX: R10.2 Pelvic and perineal pain (principal)
CPT/HCPCS: 99213

== ENCOUNTER 2023-05-25 14:57 | Outpatient (REF) | payer MEDICARE, MEDICAID, SELFPAY ==
[2023-05-26 07:14] LABS: CT PCR NOT DETECTED (Not Detect.); NG PCR NOT DETECTED (Not Detect.)
== END 2023-05-25 14:58 | disposition home or self-care (01) ==
LOC: HO.LNP 14:57
PROVIDERS: Visit Provider Obstetrics & Gynecology
DX: Z13.89 Encounter for screening for other disorder (principal)
CPT/HCPCS: 0353U

== ENCOUNTER 2023-10-19 15:25 | Outpatient (REF) | payer MEDICARE, MEDICAID, SELFPAY ==
[2023-10-19 17:26] LABS: MANUAL DIFF FLAG NO
[2023-10-19 17:29] LABS: Basophils Percent Auto 0.4 % (0-2); Eosinophils Absolute Auto 0.1 X10*3/uL (0.0-0.4); Eosinophils Percent Auto 0.8 % (0-4); Hematocrit 38.3 % (37.0-47.0); Hemoglobin 13.5 g/dl (12.0-16.0); Imm Gran Abs Auto 0.02 X10*3/uL (0.00-0.03); Imm Gran Pct Auto 0.2 % (0.0-0.4); Lymphocytes Percent Auto 21.9 % (20-40); Mean Corpuscular HGB Conc 35.2 g/dl (31.0-35.0); Mean Corpuscular Volume 93.6 fL (80.0-98.0); Monocytes Absolute Auto 0.6 X10*3/uL (0.1-1.2); Neutrophils Absolute Auto 6.2 x10*3/uL (2.0-8.3); Neutrophils Percent Auto 69.7 % (45-73); Platelet Count 258 X10*3/uL (160-400); Red Blood Count 4.09 X10*6/uL (4.20-5.50); Red Cell Distribution Width 12.5 % (11.0-16.0)
[2023-10-19 17:47] LABS: Alanine Aminotransferase 16 U/L (0-31); Albumin Level 4.1 g/dL (3.5-5.0); Alkaline Phosphatase 52 U/L (39-117); Anion Gap 11 (12-20); Aspartate Amino Transferase 19 U/L (5-31); Bilirubin Total 0.2 mg/dL (0.0-1.0); Blood Urea Nitrogen 10 mg/dL (9-16); C Reactive Protein 0.27 mg/dL (< or = 0.50); Carbon Dioxide 26 mmol/L (22-29); Chloride 109 mmol/L (96-108); Estimated Glomerular Filt Rate > 60; Glucose Random 80 mg/dL (60-115); Potassium 3.9 mmol/L (3.3-5.1); Sodium 142 mmol/L (135-145); Total Protein 6.8 g/dL (6.5-8.0)
[2023-10-19 18:05] LABS: TSH reflex Free T4 1.32 uIU/mL (0.32-4.0)
[2023-10-19 18:11] LABS: Erythrocyte Sedimentation Rate 10 MM/HR (0-20)
== END 2023-10-19 15:26 | disposition home or self-care (01) ==
LOC: HO.CHCLDS 15:25
PROVIDERS: Visit Provider Family Medicine
DX: E66.9 Obesity, unspecified (principal); R52 Pain, unspecified; R42 Dizziness and giddiness
CPT/HCPCS: 36415; 80053; 84443; 85025; 85652; 86140

== ENCOUNTER 2023-11-16 07:41 | Outpatient (REF) | payer MEDICARE, MEDICAID, SELFPAY | END 2023-11-16 07:42 | disposition home or self-care (01) | LOC: HO.NEURO 07:41 | PROVIDERS: PCP Internal Medicine; Visit Provider Family Medicine | DX: Z13.89 Encounter for screening for other disorder (principal) ==

== ENCOUNTER 2023-11-23 07:36 | Outpatient (REF) | payer MEDICARE, MEDICAID, SELFPAY ==
--- NOTE | ~2023-11-23 | CT_ITS ---
EXAMINATION: CT head/brain wo IV con CLINICAL INFORMATION: Reason for Exam LOC AND DIZZINESS COMPARISON: CT head 01/09/2017 TECHNIQUE: Contiguous axial imaging was performed from the skull base to vertex without intravenous contrast. Sagittal and coronal reformatted images were obtained. This CT examination was performed using dose optimization techniques as appropriate, variously including the following: * Automated exposure control * Adjustment of mA and/or kV according to patient size (this includes techniques or standardized protocols for targeted exams where dose is matched to indication/reason for exam; i.e. extremities or head) Use of iterative reconstruction technique DLP: 767 mGy-cm FINDINGS: Portions of the examination are degraded by streak artifact from ear piercings. There is no evidence of acute intracranial hemorrhage. No mass-effect or ventricular shift is noted. No acute, territorial loss of mar-white differentiation. The ventricles and sulci are appropriate in size and configuration for the patient's stated age. No depressed calvarial fracture. The visualized paranasal sinuses are well-aerated. The mastoid air cells are clear. CT/CT head/brain wo IV con IMPRESSION: Evaluation of the temporal lobes and posterior fossa is degraded by streak artifact from ear piercings. No acute intracranial hemorrhage or mass effect in the nondegraded aspects of the examination.
== END 2023-11-23 07:37 | disposition home or self-care (01) ==
LOC: HO.CT 07:36
PROVIDERS: PCP Family Medicine; Visit Provider Family Medicine
DX: R42 Dizziness and giddiness (principal)
CPT/HCPCS: 70450

== ENCOUNTER 2024-02-27 04:19 | Emergency (ER) | payer MEDICARE, MEDICAID, SELFPAY ==
[2024-02-27 04:28] VITALS: BP 110/44; PULSE 78; RESP 18; TEMP 36.4; O2SAT 99; BMI 29.0
--- NOTE | 2024-02-27 04:52 | PC.NURSE ---
pt a&o, able to answer question appropriately, dizziness with nausea. Iv placed on the left had.
--- NOTE | 2024-02-27 05:00 | ED.HA ---
HPI - Headache General Chief Complaint: Head Injury Stated Complaint: Slip and hit head, vomiting Time Seen by Provider: 02/27/24 04:55 Source: patient Mode of arrival: ambulatory Limitations: no limitations History of Present Illness ED Provider: dat VARGAS Narrative: Patient's history of migraine headaches chronic back pain on oxycodone and Xanax apparently was in shower slipped and hit her head to the wall having headache now vomiting took her last oxycodone out 11:00 o'clock asking for pain medication no loss of consciousness no seizures patient does have chronic neck pain Related Data Home Medications ?Medication ?Instructions ?Recorded ?Confirmed gabapentin 400 mg capsule 400 mg PO TID 06/20/21 07/02/21 alprazolam 1 mg tablet 1 mg PO DAILY PRN 03/08/23 fluticasone propionate 50 spray intranasal 03/08/23 mcg/actuation nasal spray,suspension oxycodone-acetaminophen 7.5 mg-325 1 tab PO Q4-6H PRN severe pain 03/08/23 mg tablet Previous Rx's ?Medication ?Instructions ?Recorded cyclobenzaprine 5 mg tablet 5 mg PO TID PRN muscle spasm #14 04/06/21 tabs cyclobenzaprine 10 mg tablet 10 mg PO TID PRN muscle spasm #15 04/23/21 tabs ondansetron 4 mg disintegrating 4 mg PO Q6-8H PRN nausea and 02/27/24 tablet vomiting #20 tabs Allergies Allergy/AdvReac Type Severity Reaction Status Date / Time No Known Allergies Allergy Verified 02/27/24 04:32 Review of Systems Review of Systems: Yes all other systems are reviewed and are negative PMFSH Past Medical History Medical History Cervical spondylarthritis Spondylolisthesis, cervical region Migraine NEC/not intrcbl Mood disorder Bipolar 1 disorder PTSD (post-traumatic stress disorder) Chronic low back pain without sciatica Panic disorder Neural foraminal stenosis of cervical spine Surgical History Hx of cholecystectomy S/P appendectomy Social History Social History Smoked in Last 30 Days: No Use of substances other than those prescribed or required for medical reasons: No Advance Directives: No Advance Directives Information Provided: Yes Do you have a plan to hurt others: No Plan Physical Exam Vital Signs: Vital Signs: Last Vital Signs Temp 98.0 F 02/27/24 06:07 Pulse 66 02/27/24 06:07 Resp 16 02/27/24 06:07 BP 141/53 H 02/27/24 06:07 Pulse Ox 98 02/27/24 06:07 O2 Del Method Room Air 02/27/24 06:07 BMI result Body Mass Index 29.0 Appearance: Alert. Oriented X3. No acute distress. Eyes: PERRLA, No Nystagmus HEENT: Pharynx normal. Oral Mucosa moist atraumatic no signs of injury Neck: Normal inspection. Neck supple. No midline tenderness CVS: Normal heart rate and rhythm. Pulses normal. Respiratory: No respiratory distress. Equal air entry bilateral, no wheezing/rales/rhonchi Abdomen: Soft and nontender. Bowel sounds are present, no mass palpable, no CVA tenderness Skin: Skin warm and dry. Normal skin color. Normal skin turgor. Extremities: No lower extremity edema. No calf tenderness Neuro: Oriented X 3. No motor deficit. No sensory deficit.No cerebellar signs , cranial nerves II-XII intact Medications Administered Discontinued Medications Generic Name Dose Route Start Last Admin Trade Name Freq PRN Reason Stop Dose Admin Sodium Chloride 1,000 mls @ 999 mls/hr 02/27/24 05:00 02/27/24 06:11 Ns IV 02/27/24 06:00 Infused .Q1H1M ONE Infusion Ketorolac Tromethamine 30 mg 02/27/24 05:00 02/27/24 05:15 Ketorolac Tromethamine 30 Mg/Ml Vial IVPUSH 02/27/24 05:01 30 mg ONCE ONE Administration Metoclopramide HCl 10 mg 02/27/24 05:00 02/27/24 05:15 Metoclopramide Hcl 10 Mg/2 Ml Vial IVPUSH 02/27/24 05:01 10 mg ONCE ONE Administration Oxycodone HCl 10 mg 02/27/24 05:00 02/27/24 05:09 Oxycodone Hcl Immed Release 5 Mg Tablet PO 02/27/24 05:01 10 mg ONCE ONE Administration Medical Decision Making Medical Decision Making [facility] Narrative: Patient's migraine headache with nausea vomiting feeling much better after Reglan and Toradol will discharge patient home Discharge Plan Discharge Clinical Impression: Migraine NEC/not intrcbl Patient Disposition: Home, Self-Care Instructions: Migraine Headache (ED) Additional Instructions: Rest at home Medication for nausea as prescribed Follow with your PCP Prescriptions: New ondansetron 4 mg tablet,disintegrating 4 mg PO Q6-8H PRN (Reason: nausea and vomiting) Qty: 20 0RF No Action cyclobenzaprine 5 mg tablet 5 mg PO TID PRN (Reason: muscle spasm) Qty: 14 0RF cyclobenzaprine 10 mg tablet 10 mg PO TID PRN (Reason: muscle spasm) Qty: 15 0RF gabapentin 400 mg capsule 400 mg PO TID oxycodone-acetaminophen 7.5-325 mg tablet 1 tab PO Q4-6H PRN (Reason: severe pain) alprazolam 1 mg tablet 1 mg PO DAILY PRN fluticasone propionate 50 mcg/actuation spray,suspension intranasal Interventions: ED Discharge Assessment Last Done: 02/27/24 06:07 Discharge Date/Time: 02/27/24 06:13 Print Language: Arabic
[2024-02-27] MEDS: oxyCODONE HCl Immed Release 5 MG TABLET 10 MG PO (05:09)
[2024-02-27] MEDS: 0.9 % Sodium Chloride 1,000 ML 999 ML IV (05:10)
[2024-02-27] MEDS: Metoclopramide HCl 10 MG/2 ML VIAL IVPUSH (05:15)
[2024-02-27] MEDS: Ketorolac Tromethamine 30 MG/ML VIAL IVPUSH (05:15)
--- NOTE | 2024-02-27 05:27 | PC.NURSE ---
pt medicated per mar.
--- NOTE | 2024-02-27 06:06 | PC.NURSE ---
reviewed discharge instructions with pt. pt verbalized understanding. no sign of distress.
[2024-02-27 06:07] VITALS: BP 141/53; PULSE 66; RESP 16; TEMP 36.7; O2SAT 98
== END 2024-02-27 06:13 | disposition home or self-care (01) ==
PROVIDERS: Emergency Provider Internal Medicine
DX: G43.909 Migraine, unspecified, not intractable, without status migrainosus (principal); G89.29 Other chronic pain; M54.2 Cervicalgia; Z79.891 Long term (current) use of opiate analgesic
CPT/HCPCS: 96361; 96374; 96375; 99284; 99285; J1885; J2765

== ENCOUNTER 2024-04-11 14:01 | Outpatient (AMB) | payer MEDICARE, MEDICAID, SELFPAY ==
--- NOTE | 2024-04-11 14:35 | MHC.OFFVIS ---
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 No complaints. Last Pap/HPV was negative in 03/05 Last Mammogram was BI-RADS 1 in 01/02 No previous screening Colonoscopy PFSH Medical History Cervical spondylarthritis Spondylolisthesis, cervical region Migraine NEC/not intrcbl Mood disorder Bipolar 1 disorder PTSD (post-traumatic stress disorder) Chronic low back pain without sciatica Panic disorder Neural foraminal stenosis of cervical spine Surgical History Hx of tubal ligation Hx of cholecystectomy S/P appendectomy Social History Household Members: Significant Other Housing: Apartment Alcohol intake: current Alcohol intake frequency: a few times a week Alcohol type: beer Patient Tobacco Use Status: Former Tobacco user Tobacco use type: Cigarette Current occupational status: disabled Sexually active: Yes Sexual orientation: Straight/Heterosexual Gender identity: Female Female Reproductive History Menstrual Age of Menarche: 11 Duration of menses: 3-5 days Date of last menstrual period: 03/28/24 Total pregnancies: 6 Full term: 3 Number of Living Children: 3 Ab spontaneous: 3 Date of last pap smear: 03/10/23 Date of Mammogram: 12/31/21 Review of Systems Const All systems reviewed & are unremarkable except as noted in HPI and below Card Reports as per HPI Resp Reports as per HPI GI Reports as per HPI and Reports no additional complaints Reports as per HPI Physical Exam Vital Signs: BMI result Body Mass Index 28.8 Const General: cooperative, healthy appearing and comfortable Chest Chest palpation & inspection: normal inspection of the chest and normal palpation of entire chest wall Breast/axilla inspection: normal inspection of the breasts and normal inspection of the axillae Breast/axilla palpation: normal palpation of the breasts, normal palpation of the axillae and no axillary lymphadenopathy Resp Effort & Inspection: normal respiratory effort Auscultation: clear to auscultation bilaterally Percussion: percussion normal Cardio Palpation: normal PMI Rate: regular rate Rhythm: regular rhythm Heart sounds: no murmurs and no rubs Peripheral pulses: Peripheral pulses 2+ throughout GI Inspection: Yes normal to inspection Palpation (GI): Soft to palpation, nontender, no guarding, not rigid and No hepatosplenomegaly present Percussion: Yes normal to percussion Auscultation: normal bowel sounds Rectal Exam - Female: deferred General: Yes bladder normal to palpation External Female Exam: No lesion Speculum Exam - Vagina: normal appearance of the vagina, normal palpation, normal vaginal discharge and not erythematous Speculum Exam - Cervix: normal appearance of the cervix and normal palpation Bimanual exam- vagina & uterus: normal bimanual exam, normal palpation, uterine size normal, bladder normal to palpation, consistency normal and normal palpation Bimanual Exam- Adnexa, other: normal adnexae, no masses and no tenderness Assessment & Plan Assessment & Plan (1) Well woman exam: Code(s): Z01.419 - Encounter for gynecological examination (general) (routine) without abnormal findings Category: Medical Plan: Cotesting not indicated this year. Mammogram ordered. Counseled the patient about the recommended dietary allowance of 1000 mg of Calcium & 600 IU of vitamin D. Referred to GI for screening colonoscopy The patient was instructed to perform monthly self-breast exams and to schedule an annual exam in a year; All questions answered and the patient verbalized understanding. Instructed the patient to schedule annual exam in a year Orders: Orders MM tomosynthesis screening BI Today Z12.31 - Encounter for screening mammogram for malignant neoplasm of breast Referrals Gastroenterology Referral Z12.11 - Encounter for screening for malignant neoplasm of colon Coding Level of Care Code Est Pt Prev Care 40-64y(14874) Diagnoses Well woman exam Z01.419
[2024-04-11 14:36] VITALS: BP 124/76; BMI 28.8
== END 2024-04-11 15:10 | disposition home or self-care (01) ==
LOC: HO.HWS 14:01
PROVIDERS: Visit Provider Obstetrics & Gynecology
DX: Z01.419 Encounter for gynecological examination (general) (routine) without abnormal findings (principal)
CPT/HCPCS: 99396

== ENCOUNTER → 2024-04-11 14:01 | Outpatient (BNVA) | payer MEDICARE, MEDICAID, SELFPAY | PROVIDERS: Visit Provider Obstetrics & Gynecology | DX: Z01.419 Encounter for gynecological examination (general) (routine) without abnormal findings (principal) | CPT/HCPCS: 99396 ==

== ENCOUNTER 2024-04-24 13:49 | Outpatient (REF) | payer MEDICARE, MEDICAID, SELFPAY ==
--- NOTE | ~2024-04-24 | MM_ITS ---
EXAMINATION: MM SCREENING DIGITAL BREAST TOMOSYNTHESIS, BILATERAL CLINICAL INFORMATION: Screening. Asymptomatic. COMPARISON: Mammography: This study is compared with prior exams dating back to 2019. TECHNIQUE: Digital breast tomosynthesis is performed in both the craniocaudal and mediolateral oblique views along with computer-aided detection (CAD). Synthesized 2D images are generated from the tomosynthesis. FINDINGS: The breasts are heterogeneously dense, which may obscure small masses (ACR BI-RADS breast composition Category c). There are no significant masses, abnormal calcifications, or other abnormalities. MM/MM tomosynthesis screening BI IMPRESSION: No mammographic evidence of malignancy. ASSESSMENT: BI-RADS BI-RADS 1 - Negative RECOMMENDATION: Routine annual mammography screening. 1 year F/U This examination should not preclude the clinical evaluation of a suspicious palpable abnormality. This patient's information was entered into a reminder system with a target due date for their next mammogram. Electronically signed by: Isabel Morgan MD 05/22/2024 04:29 PM EDT
== END 2024-04-24 13:50 | disposition home or self-care (01) ==
LOC: HO.MAMMO 13:49
PROVIDERS: PCP Internal Medicine; Referring Provider Obstetrics & Gynecology; Visit Provider Internal Medicine
DX: Z12.31 Encounter for screening mammogram for malignant neoplasm of breast (principal)
CPT/HCPCS: 77063; 77067

== ENCOUNTER → 2024-04-24 14:00 | Outpatient (BNV) | payer MEDICARE, MEDICAID, SELFPAY | PROVIDERS: PCP Internal Medicine; Referring Provider Obstetrics & Gynecology; Visit Provider Radiology Diagnostic Radiology | DX: Z12.31 Encounter for screening mammogram for malignant neoplasm of breast (principal) | CPT/HCPCS: 77063; 77067 ==

== ENCOUNTER 2024-04-26 13:37 | Outpatient (AMB) | payer MEDICARE, MEDICAID, SELFPAY ==
--- NOTE | 2024-04-26 13:56 | MHC.OFFVIS ---
Vital Signs 04/26/24 13:57 Height 5 ft 8 in Weight 187 lb 13.341 oz BMI 28.6 BP 114/58 L Blood Pressure Location Rt brachial Position Sitting Pulse 76 Pulse Source Pulse Oximeter Pulse Oximetry (%) 96 Oxygen Delivery Method Room Air Intake Visit Reasons: Colonoscopy Screening Intake Note: May presents in office today for a scheduled colo s/p consult. CC; Pt denies any previous hx of colo. Pt reports that this is strictly routine and age based. Pt denies any concerns or sx at this time. Pt denies any pertinent family hx. 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 female with past medical history of back pain, PTSD, migraine headaches, cervical spondyloarthritis, recent back surgery is here today for pre colonoscopy screening.? Patient is accompanied by her significant other. Patient was sent to us by her PCP.? This is her first colonoscopy screening.? Patient denies any gastrointestinal symptoms in the past or at present.? Denies any personal or family history of gastrointestinal disease, colon polyps, or CRC.? However patient does admit that she does not know her biological family. Denies history of difficulty with sedation or anesthesia in the past.? Negative for history of sleep apnea.? Denies any history of cardiac, renal, pulmonary, or hepatic disease.?? No history of infectious? diseases like hepatitis A, B, C, HIV or tuberculosis.? Patient is not on any anticoagulation [facility] Medical History Pinched vertebral nerve Cervical spondylarthritis Spondylolisthesis, cervical region Migraine NEC/not intrcbl Mood disorder Bipolar 1 disorder PTSD (post-traumatic stress disorder) Chronic low back pain without sciatica Panic disorder Neural foraminal stenosis of cervical spine Surgical History Hx of tubal ligation Hx of cholecystectomy S/P appendectomy Social History Household Members: Significant Other Housing: Apartment Alcohol intake: current Alcohol intake frequency: a few times a week Alcohol type: beer Patient Tobacco Use Status: Former Tobacco user Tobacco use type: Cigarette Current occupational status: disabled Sexual orientation: Straight/Heterosexual Gender identity: Female Female Reproductive History Menstrual Age of Menarche: 11 Review of Systems Const Denies weight gain and Denies weight loss ENT Reports no additional complaints, Denies dysphagia and Denies odynophagia Card Reports no additional complaints Resp Reports no additional complaints GI Denies abdominal pain, Denies belching, Denies melena, Denies bloating, Denies change in bowel habits, Denies dysphagia, Denies excessive flatus, Denies dyspepsia, Denies heartburn, Denies diarrhea, Denies loose stools, Denies nausea, Denies odynophagia and Denies vomiting Musc Reports no additional complaints Neuro Reports no additional complaints Psych Reports no additional complaints Endo Reports no additional complaints Physical Exam Vital Signs: Last Vital Signs Pulse 76 04/26/24 13:57 BP 114/58 L 04/26/24 13:57 Pulse Ox 96 04/26/24 13:57 Oxygen Delivery Method Room Air 04/26/24 13:57 BMI result Body Mass Index 28.6 Const General: healthy appearing, no acute distress and well developed Nutritional Appearance: well nourished Orientation/consciousness: patient oriented x3 Resp Effort & Inspection: normal respiratory effort, able to speak in complete sentences, no tracheal deviation and symmetric chest movement Auscultation: clear to auscultation bilaterally Cardio Rate: regular rate GI Inspection: Yes normal to inspection and No distended Palpation (GI): Soft to palpation, not firm, nontender and No hepatosplenomegaly present Auscultation: normal bowel sounds General: Yes no CVA tenderness Back/Spine/Pelvis Back: no CVA tenderness Skin General skin exam: elasticity normal, turgor normal and dry skin Neuro General: patient oriented x3 Psych Appearance: grossly normal Mental Status: mental status grossly normal Assessment & Plan Assessment & Plan (1) Screen for colon cancer: Code(s): Z12.11 - Encounter for screening for malignant neoplasm of colon Plan Patient denies any GI, cardiac or respiratory symptoms.? Denies any issues with anesthesia in the past.? Denies any history of sleep apnea.? No history infectious diseases in the past or present.? Not on any anticoagulation therapy.? No family or personal history of colon cancer or polyps.? Patient denies melena, hematochezia, unintentional weight loss or ribbon like stools.? Discussed at length the pre-procedure,? prep, diet & medications as well as what to expect prior, during and after the procedure.?? Stressed the importance of good bowel prep.? Recommended the use of Vaseline or Calmoseptine OTC & baby wipes with bowel movements to promote comfort.? ?Patient verbalizes understanding and agrees to plan of care.? She was given the opportunity to ask questions and all questions answered.? We will see her after the procedure.? Medications: New polyethylene glycol 3350 (Miralax) As directed by gastroenterology department at [facility] 238 grams PO ONCE 238 grams 0RF Z12.11 - Encounter for screening for malignant neoplasm of colon bisacodyl (Dulcolax (bisacodyl)) take 4 tabs at noon the day before your colonoscopy 20 mg (4 x 5 mg) PO ONCE 4 tabs 0RF 1 day Z12.11 - Encounter for screening for malignant neoplasm of colon Coding Level of Care Code New Pt Level 3 (07154) Diagnoses Screen for colon cancer Z12.11 Time Spent (min) 40 Comment 30 minutes spent with patient and additional 10 minutes spent reviewing her records
[2024-04-26 13:57] VITALS: BP 114/58; PULSE 76; O2SAT 96; BMI 28.6
== END 2024-04-26 14:44 | disposition home or self-care (01) ==
PROVIDERS: Visit Provider Nurse Practitioner Family
DX: Z01.818 Encounter for other preprocedural examination (principal); Z12.11 Encounter for screening for malignant neoplasm of colon
CPT/HCPCS: 99024

== ENCOUNTER → 2024-04-26 13:37 | Outpatient (BNVA) | payer MEDICARE, MEDICAID, SELFPAY | PROVIDERS: Visit Provider Nurse Practitioner Family | DX: Z01.818 Encounter for other preprocedural examination (principal) | CPT/HCPCS: 99212 ==

== ENCOUNTER 2024-05-22 10:09 | Outpatient (REF) | payer MEDICARE, MEDICAID, SELFPAY ==
[2024-05-23 04:44] LABS: HBS Num1 3.35 mIU/mL (0-7.99); ~Hepatitis B Surface Antibody NONREACTIVE (Nonreactive)
[2024-05-25 06:43] LABS: TS Negative Control Passed; TS Panel A 0; TS Panel B 0; TS Positive Control Passed; TSpotTB Negative (Negative)
[2024-05-25 08:43] LABS: Rubella IgG Antibody 8.26 Index
== END 2024-05-22 10:10 | disposition home or self-care (01) ==
LOC: HO.CHCLDS 10:09
PROVIDERS: Visit Provider Internal Medicine
DX: Z00.00 Encounter for general adult medical examination without abnormal findings (principal); Z11.1 Encounter for screening for respiratory tuberculosis; Z11.59 Encounter for screening for other viral diseases; Z72.89 Other problems related to lifestyle
CPT/HCPCS: 36415; 86481; 86706; 86735; 86762; 86765; 86787

== ENCOUNTER 2024-07-02 23:48 | Emergency (ER) | payer MEDICARE, MEDICAID, SELFPAY ==
[2024-07-02 23:50] VITALS: BP 106/69; PULSE 73; RESP 16; TEMP 36.6; O2SAT 95; BMI 29.6
--- NOTE | 2024-07-03 01:01 | ED_ITS ---
HPI - General Adult General Chief complaint: Back Pain/Injury Stated complaint: neck and back pain Time Seen by Provider: 07/03/24 01:01 Source: patient Mode of arrival: ambulatory Limitations: no limitations History of Present Illness ED Provider: dat VARGAS narrative: Patient's history of chronic neck and lower back pain follow up with neurosurgeon surgery stone in the lower back plan to have the another the cervical surgery on multiple pain medication no recent fall or injury Related Data Home Medications ?Medication ?Instructions ?Recorded ?Confirmed alprazolam 1 mg tablet 1 mg PO DAILY PRN 03/08/23 fluticasone propionate 50 spray intranasal 03/08/23 mcg/actuation nasal spray,suspension cyclobenzaprine 10 mg tablet 20 mg PO TID PRN muscle spasm 04/11/24 gabapentin 800 mg tablet 800 mg PO TID 04/26/24 multivitamin,Ca,mineral-folic 1 tab PO DAILY 04/26/24 acid-herbal no.157 400 mcg tablet (Estroven Maximum Strength) oxycodone-acetaminophen 10 mg-325 1 tab PO QID PRN 04/26/24 mg tablet Previous Rx's ?Medication ?Instructions ?Recorded bisacodyl 5 mg tablet,delayed 20 mg (4 x 5 mg) PO ONCE 1 day #4 04/26/24 release (Dulcolax (bisacodyl)) tabs polyethylene glycol 3350 17 238 g PO ONCE #238 grams 04/26/24 gram/dose oral powder (Miralax) Allergies Allergy/AdvReac Type Severity Reaction Status Date / Time No Known Allergies Allergy Verified 07/02/24 23:55 Review of Systems Review of Systems: Yes all other systems are reviewed and are negative PMF Past Medical History Medical History Pinched vertebral nerve Cervical spondylarthritis Spondylolisthesis, cervical region Migraine NEC/not intrcbl Mood disorder Bipolar 1 disorder PTSD (post-traumatic stress disorder) Chronic low back pain without sciatica Panic disorder Neural foraminal stenosis of cervical spine Surgical History Hx of tubal ligation Hx of cholecystectomy S/P appendectomy Social History Social History Household Members: Significant Other Housing: Apartment Alcohol intake: current Alcohol intake frequency: a few times a week Alcohol type: beer Patient Tobacco Use Status: Former Tobacco user Tobacco use type: Cigarette Advance Directives: No Advance Directives Information Provided: Yes Current occupational status: disabled Sexual orientation: Straight/Heterosexual Gender identity: Female Physical Exam ED Vital Signs: Vital Signs - 24 hr 07/02/24 23:50 Temperature 97.9 F Pulse Rate 73 Respiratory Rate 16 Blood Pressure 106/69 Pulse Oximetry 95 Oxygen Delivery Method Room Air BMI result Body Mass Index 29.6 Appearance: Alert. Oriented X3. No acute distress. Eyes: PERRLA, No Nystagmus ENT: Pharynx normal. Oral Mucosa moist Neck: Normal inspection. Neck supple. Diffuse paraspinal tenderness CVS: Normal heart rate and rhythm. Pulses normal. Respiratory: No respiratory distress. Equal air entry bilateral, no wheezing/rales/rhonchi Abdomen: Soft and nontender. Bowel sounds are present, no mass palpable, no CVA tenderness Skin: Skin warm and dry. Normal skin color. Normal skin turgor. Extremities: No lower extremity edema. No calf tenderness back: Diffuse tenderness no midline tenderness right sciatic tenderness SLR negative Neuro: Oriented X 3. No motor deficit. No sensory deficit.No cerebellar signs , cranial nerves II-XII intact Medical Decision Making Medical Decision Making MDM Narrative: Patient has chronic back pain on pain medication advised to follow up with neurosurgeon no signs of acute injury Discharge Plan Discharge Clinical Impression: Chronic back pain Patient Disposition: Home, Self-Care Instructions: Chronic Back Pain (DC) Additional Instructions: Continue your pain medication and muscle relaxant and follow up with your neurosurgeon and PCP Prescriptions: No Action cyclobenzaprine 10 mg tablet 20 mg PO TID PRN (Reason: muscle spasm) alprazolam 1 mg tablet 1 mg PO DAILY PRN fluticasone propionate 50 mcg/actuation spray,suspension intranasal oxycodone-acetaminophen 10-325 mg tablet 1 tab PO QID PRN Estroven Maximum Strength 400 mcg tablet 1 tab PO DAILY gabapentin 800 mg tablet 800 mg PO TID bisacodyl [Dulcolax (bisacodyl)] 5 mg tablet,delayed release (DR/EC) 20 mg PO ONCE 1 Days Qty: 4 0RF Rx Instructions: take 4 tabs at noon the day before your colonoscopy polyethylene glycol 3350 [Miralax] 17 gram/dose powder 238 g PO ONCE Qty: 238 0RF Rx Instructions: As directed by gastroenterology department at [facility] Print Language: Uzbek
[2024-07-03] MEDS: Ketorolac Tromethamine 60 MG/2 ML VIAL IM (01:14)
== END 2024-07-03 01:30 | disposition home or self-care (01) ==
PROVIDERS: Emergency Provider Internal Medicine; PCP Internal Medicine
DX: M54.50 Low back pain, unspecified (principal); G89.29 Other chronic pain; M54.2 Cervicalgia
CPT/HCPCS: 96372; 99284; J1885

== ENCOUNTER 2024-08-01 12:13 | Outpatient (REF) | payer MEDICARE, MEDICAID, SELFPAY | END 2024-08-01 12:14 | disposition home or self-care (01) | LOC: HO.XRAY 12:13 | PROVIDERS: PCP Internal Medicine; Visit Provider Internal Medicine | DX: M25.551 Pain in right hip (principal); M25.552 Pain in left hip | CPT/HCPCS: 73502 ==

== ENCOUNTER 2024-08-31 07:02 | Day surgery (SDC) | payer MEDICARE, MEDICAID, SELFPAY ==
[2024-08-29 09:16] VITALS: BMI 28.6
--- NOTE | 2024-08-31 07:51 | P.HPSUR_ITS ---
Pre-Procedural Eval Section A - 24 Hr Update-Section A only Date of Service: 08/31/24 Section B - Complete if H&P > 30 days Chief Complaint: Encounter for screening for malignant neoplasm of Details of Present Illness: Pinched vertebral nerve Cervical spondylarthritis Spondylolisthesis, cervical region Migraine NEC/not intrcbl Mood disorder Bipolar 1 disorder PTSD (post-traumatic stress disorder) Chronic low back pain without sciatica Panic disorder Neural foraminal stenosis of cervical spine Surgical History Hx of tubal ligation Hx of cholecystectomy S/P appendectomy Allergies: Allergies Allergy/AdvReac Type Severity Reaction Status Date / Time No Known Allergies Allergy Verified 07/02/24 23:55 Review of Systems Review of Systems Comment: Ten point ROS negative Exam Exam Comment: Gen appear: No acute distress HEENT: no icterus Chest: No overt resp distress Abd: soft, nontender, nondistended Psych: Stable affect, answering questions appropriately Neuro: A/Ox3 noted to move all extremities spontaneously Ext: no peripheral edema Plan Diagnosis/Plan: Unchanged I have reviewed the history and physical and performed a pertinent physical examination on my patient. No changes have occurred unless specified. Time Spent With Patient Time: Total time managing care of this patient today ____ minutes.
[2024-08-31 08:09] VITALS: BMI 27.5
[2024-08-31 08:10] VITALS: BP 105/39; PULSE 78; RESP 16; TEMP 36.3; O2SAT 97
--- NOTE | 2024-08-31 08:30 | P.CONAN_ITS ---
Documented by User: Melissa Bourgeois NP 08/30/24 08:16 HPI - Anesthesia Eval Consult details Narrative: 44yo F for Colonoscopy PMFSH Active Problems Active Problems: All Active Problems Pelvic pain (Acute) Well woman exam (Acute) Cervical spondylarthritis (Acute) Spondylolisthesis, cervical region (Acute) Migraine NEC/not intrcbl (Acute) Mood disorder (Acute) Bipolar 1 disorder (Acute) PTSD (post-traumatic stress disorder) (Acute) Chronic low back pain without sciatica (Acute) Panic disorder (Acute) Past Medical History Medical History Pinched vertebral nerve Cervical spondylarthritis Spondylolisthesis, cervical region Migraine NEC/not intrcbl Mood disorder Bipolar 1 disorder PTSD (post-traumatic stress disorder) Chronic low back pain without sciatica Panic disorder Neural foraminal stenosis of cervical spine Surgical History Surgical History Hx of tubal ligation Hx of cholecystectomy S/P appendectomy Social History Social History Household Members: Significant Other Housing: Apartment Alcohol intake: current Alcohol intake frequency: a few times a week Alcohol type: beer Patient Tobacco Use Status: Former Tobacco user Tobacco use type: Cigarette Use of substances other than those prescribed or required for medical reasons: Yes Substance Use Type Other:: last used 08/30/24 Substance Use Frequency: Daily Are you DNR?: No Advance Directives: No Advance Directives Information Provided: Yes Current occupational status: disabled Sexual orientation: Straight/Heterosexual Gender identity: Female Meds Allergies Allergy/AdvReac Type Severity Reaction Status Date / Time No Known Allergies Allergy Verified 08/31/24 07:59 Home Medications ?Medication ?Instructions ?Recorded ?Confirmed ?Last Taken ?Type alprazolam 1 mg tablet 1 mg PO DAILY PRN Anxiety 03/08/23 08/31/24 Unknown H istory fluticasone propionate 50 spray intranasal 03/08/23 Unknown History mcg/actuation nasal spray,suspension cyclobenzaprine 10 mg tablet 20 mg PO TID PRN muscle spasm 04/11/24 08/31/24 Unknown History gabapentin 800 mg tablet 800 mg PO TID 04/26/24 08/31/24 Unknown History multivitamin,Ca,mineral-folic 1 tab PO DAILY 04/26/24 08/31/24 Unknown History acid-herbal no.157 400 mcg tablet (Estroven Maximum Strength) oxycodone-acetaminophen 10 mg-325 1 tab PO QID PRN Pain 04/26/24 Unknown History mg tablet Exam Height,Weight and Vital Signs: Height 5 ft 8 in Weight 85.275 kg Assessment and Plan Assessment Anesthesia Assessment: Chart Reviewed Documented by User: Marjan Frost DO 08/31/24 08:34 [facility] Past Medical History Medical History Pinched vertebral nerve Cervical spondylarthritis Spondylolisthesis, cervical region Migraine NEC/not intrcbl Mood disorder Bipolar 1 disorder PTSD (post-traumatic stress disorder) Chronic low back pain without sciatica Panic disorder Neural foraminal stenosis of cervical spine Family History Family history of problems with anesthesia: No Surgical History Surgical History Hx of tubal ligation Hx of cholecystectomy S/P appendectomy History of Problems with Anesthesia: No Social History Social History Household Members: Significant Other Housing: Apartment Alcohol intake: current Alcohol intake frequency: a few times a week Alcohol type: beer Patient Tobacco Use Status: Former Tobacco user Tobacco use type: Cigarette Use of substances other than those prescribed or required for medical reasons: Yes Substance Use Type Other:: last used 08/30/24 Substance Use Frequency: Daily Are you DNR?: No Advance Directives: No Advance Directives Information Provided: Yes Current occupational status: disabled Sexual orientation: Straight/Heterosexual Gender identity: Female Meds Allergies Allergy/AdvReac Type Severity Reaction Status Date / Time No Known Allergies Allergy Verified 08/31/24 07:59 Home Medications ?Medication ?Instructions ?Recorded ?Confirmed ?Last Taken ?Type alprazolam 1 mg tablet 1 mg PO DAILY PRN Anxiety 03/08/23 08/31/24 Unknown History fluticasone propionate 50 spray intranasal 03/08/23 Unknown History mcg/actuation nasal spray,suspension cyclobenzaprine 10 mg tablet 20 mg PO TID PRN muscle spasm 04/11/24 08/31/24 Unknown History gabapentin 800 mg tablet 800 mg PO TID 04/26/24 08/31/24 Unknown History multivitamin,Ca,mineral-folic 1 tab PO DAILY 04/26/24 08/31/24 Unknown History acid-herbal no.157 400 mcg tablet (Estroven Maximum Strength) oxycodone-acetaminophen 10 mg-325 1 tab PO QID PRN Pain 04/26/24 Unknown History mg tablet Exam Exam Date and Time: 08/31/24 0830 Height,Weight and Vital Signs: Height 5 ft 8 in Weight 85.275 kg Vital Signs Temperature 97.4 F 08/31/24 08:10 Pulse Rate 78 08/31/24 08:10 Respiratory Rate 16 08/31/24 08:10 Blood Pressure 105/39 L 08/31/24 08:10 Pulse Oximetry 97 08/31/24 08:10 Oxygen Delivery Method Room Air 08/31/24 08:10 Temperature 97.4 F 08/31/24 08:10 Pulse Rate 78 08/31/24 08:10 Respiratory Rate 16 08/31/24 08:10 Blood Pressure 105/39 L 08/31/24 08:10 Pulse Oximetry 97 08/31/24 08:10 Oxygen Delivery Method Room Air 08/31/24 08:10 Airway Mallampati Class: II TM Dist: >3cm Neck ROM: Full Loose/Missing/Broken Teeth: Yes (dentures removed per patient) Heart: S1S2 Lungs: CTAB Assessment and Plan Assessment Anesthesia Assessment: Anesthesia Plan Discussed and Chart Reviewed Final Anesthetic Review Family History of Problems with Anesthesia: No History of Problems with Anesthesia: No NPO: Yes ASA Class: II Final Preanesthetic Review: No Changes in Pt Med Stat, Meds/Allgs Chart Reviewed , Consent Obtained/Reviewed and Anes Risks/Benef Reviewed Patient Risk: Low Procedure Risk: Low Anesthetic Plan Anesthetic Plan: MAC: and Agree w/ Assess. and Plan Disposition: Standard PACU
[2024-08-31 09:11] VITALS: BP 96/64; PULSE 86; RESP 12; TEMP 36.1; O2SAT 97
--- NOTE | 2024-08-31 09:12 | P.OPN-COLO_ITS ---
Colonoscopy Operative Note Operative Note Date of Service: 08/31/24 Narrative: Procedure: Colonoscopy Indication: Screening Endoscopist: Cassie Romano MD Anesthesia Provider: Joo Rosa CRNA Anesthesia type: MAC Instrument: Olympus [id number]-H190L Consent: Indication, risks vs benefits, and alternatives were discussed with the patient who gave written informed consent to proceed. EKG, pulse, pulse oximetry and blood pressure were monitored throughout the procedure. Please see anesthesia flowsheet. Procedure: The patient was brought to the procedure room and placed in the left lateral decubitus position. IV medications were administered by the anesthesia provider in attendance. A digital rectal exam was performed which was normal. A distal attachment cap was affixed to the tip of the colonoscope which was then inserted through the anus and advanced through the colon to the cecum at 75 cm,and terminal ileum. Appendiceal orifice and ileocecal valve were identified. Mucosa was carefully examined under high definition white light as the instrument was slowly withdrawn in a retrograde panoramic fashion. Retroflexion was performed in rectum. The procedure was not difficult. There were no immediate obvious complications. The quality of the prep was BBPS: 2+2+2 = adequate Withdrawal time 11 minutes. Limitations: No limitations. Findings: Mucosa: Normal to cecum and terminal ileum. Protruding lesions: * 3 sessile polyp of size 3-5 mm in sigmoid colon. Cold snare polypectomy was performed. The polyp was completely removed and retrieved. * Medium internal hemorrhoids without stigmata of recent bleeding. Excavated lesions: * Scattered diverticulosis of left sided colon. Impression: 1. Normal colon and terminal ileum mucosa 2. Total of 3 polyps removed 3. Internal hemorrhoids 4. Diverticulosis Recommendations: - Follow path results. - Repeat colonoscopy in 3 years if all 3 polyps are adenoma, otherwise 7 years.
[2024-08-31 09:25] VITALS: BP 100/62; PULSE 85; RESP 16; TEMP 36.7; O2SAT 100
--- NOTE | 2024-08-31 09:37 | PC.NURSE ---
upon waking up in PACU pt was stating she was anxious and requesting medication to help through her IV. pt sat up and given gingerale- tolerated well and reported feeling better. pt stated she has chronic headaches and neck pain and wanted pain medication. pt in no acute distress. pt stated she was ready to go and pt assisted to chair and was assisted to change into clothes. pt was fully dressed and instructed to wait in chair while a wc was retrieved to bring pt to dc. upon return pt was found on the floor on hands and knees. pt assisted to change underwear per pt request and placed back into bed. charge account identification clerk, anesthesia and director aware of incident. denies any lower or upper extremity pain. denies head strike. pt in bed at this time getting vital signs and becoming increasingly agitated yelling at this rn its documented that i have nerve damage and i need pain medication that you are not going to give me! blood pressure 117/67 pulse 68 rr 20. risk management and section 8 property manager nadia at bedside to speak with patient- refused further care and began walking out of pacu aox3 steady gait escorted by section 8 property manager.
--- NOTE | 2024-08-31 10:23 | PC.NURSE ---
pt given discharge instructions at bedside and pt signed paperwork.
== END 2024-08-31 10:15 | disposition home or self-care (01) ==
PROVIDERS: PCP Nurse Practitioner Family; Visit Provider Internal Medicine
PROC: 0DJD8ZZ Inspection of Lower Intestinal Tract, Via Natural or Artificial Opening Endoscopic (ICD-10-PCS; CPT 45378; principal; 2024-08-31 09:20)
DX: Z12.11 Encounter for screening for malignant neoplasm of colon (principal); K63.5 Polyp of colon; K57.30 Diverticulosis of large intestine without perforation or abscess without bleeding; K64.8 Other hemorrhoids; F31.9 Bipolar disorder, unspecified; F43.10 Post-traumatic stress disorder, unspecified; G43.909 Migraine, unspecified, not intractable, without status migrainosus; G89.29 Other chronic pain; M54.50 Low back pain, unspecified; Z79.51 Long term (current) use of inhaled steroids; Z79.899 Other long term (current) drug therapy; Z98.890 Other specified postprocedural states; Z90.49 Acquired absence of other specified parts of digestive tract; Z98.51 Tubal ligation status; Z87.891 Personal history of nicotine dependence; Z88.5 Allergy status to narcotic agent
CPT/HCPCS: 45385; 88305; J2003; J2704

== ENCOUNTER → 2024-08-31 07:02 | Outpatient (BNV) | payer MEDICARE, MEDICAID, SELFPAY | PROVIDERS: PCP Nurse Practitioner Family; Visit Provider Internal Medicine | DX: Z12.11 Encounter for screening for malignant neoplasm of colon (principal); K63.5 Polyp of colon; K57.30 Diverticulosis of large intestine without perforation or abscess without bleeding; K64.8 Other hemorrhoids | CPT/HCPCS: 45385 ==

== ENCOUNTER 2024-10-09 13:40 | Outpatient (AMB) | payer MEDICARE, MEDICAID, SELFPAY ==
--- NOTE | 2024-10-09 13:45 | MHC.OFFVIS ---
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 Patient reports history of falls, last fell Wednesday last week injuring her right hip pain. Patient reports numbness and tingling radiating down her right hip to the toes. She has tried PT without improvement. She has also tried Diclofenac Gel. Denies any prior right hip surgery. 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 She states due to this she has multiple falls. Dr Suggs at [facility] continues to treat her for the right sided numbness and she is pending another surgery to have this addressed . She states her hip pain is located along the low back region and travels down the leg. She has weakness with ambulating and pain with lifting the leg. She states she did attent PT for the hips last year. [facility] Medical History Pinched vertebral nerve Cervical spondylarthritis Spondylolisthesis, cervical region Migraine NEC/not intrcbl Mood disorder Bipolar 1 disorder PTSD (post-traumatic stress disorder) Chronic low back pain without sciatica Panic disorder Neural foraminal stenosis of cervical spine Surgical History Hx of tubal ligation Hx of cholecystectomy S/P appendectomy Social History (Updated 10/09/24 @ 13:48 by KARTIK Bender) Household Members: Significant Other Housing: Apartment Alcohol intake: current Alcohol intake frequency: a few times a week Alcohol type: beer Patient Tobacco Use Status: Former Tobacco user Tobacco use type: Cigarette Current occupational status: disabled Current occupation: rt handed Sexual orientation: Straight/Heterosexual Gender identity: Female Female Reproductive History Menstrual Age of Menarche: 11 Review of Systems Const All systems reviewed & are unremarkable except as noted in HPI and below Physical Exam Vital Signs: BMI result Body Mass Index 30.7 Const General: cooperative and no acute distress Orientation/consciousness: patient oriented x3 Resp Effort & Inspection: normal respiratory effort and able to speak in complete sentences Cardio Peripheral pulses: Peripheral pulses 2+ throughout Neuro General: patient oriented x3 Extrem Other: Bilat hip normal to inspection. No pain with ROM of the hip. Significant discomfort and weakness with hip flexion with and without resistance. She also has point tenderness along the SI joint of the left. Results Reviewed Results Reviewed: X-rays of both hips obtained on 08/01/2024 are negative for any acute or chronic abnormalities. Assessment & Plan Assessment & Plan (1) Bilateral hip bursitis: Code(s): M70.71 - Other bursitis of hip, right hip; M70.72 - Other bursitis of hip, left hip Category: Medical Plan Lengthy discussion with the patient about the source of her pain. I do think a lot of this does stem from her spine and the previous surgery she has had. She states she has never had an EMG/nerve conduction study of her lower extremity therefore I have ordered this today. I did stress the importance of physical therapy on her hips to help with strengthening exercises to potentially benefit her in the future if she does have repeat spine surgery. I did put in a referral to see Dr. Galdamez to see if there is any other nonsurgical approaches she could explore for her numbness and tingling. Also for her SI joint pain. Patient is content with this plan and will see me back as needed. Orders: Orders PT Evaluation and Treatment Today M70.71 - Other bursitis of hip, right hip, M70.72 - Other bursitis of hip, left hip NE nerve conduction velocity Today R20.0 - Anesthesia of skin, R20.2 - Paresthesia of skin NE electromyogram (EMG) Today R20.0 - Anesthesia of skin, R20.2 - Paresthesia of skin Medications: New celecoxib (Celebrex) 200 mg PO BID 30 days 60 caps 3RF Coding Level of Care Code New Pt Level 3 (00524) Complex EM visit Add On G2211 Diagnoses Bilateral hip bursitis M70.71; M70.72
[2024-10-09 13:48] VITALS: BMI 30.7
--- OUTSIDE RECORDS SUMMARY | 2024-10-09 18:23 | XMS_ITS | Encounter Summary ---
Author Organization [employer] Address [address] [place] [address] Care Team Providers Care Brush Loader And Handle Attacher Name Role Phone Clare Mo MD Primary Care Provider [phone] Encounter Details Date Type Department Care Team ([facility] st Contact Info) Description 09/19/2024 Telephone [facility] MEDICINE [address] [place] [address] Clare Mo MD [address] [place] [address] Social History Tobacco Use Types Packs/Day Years Used Date Smoking Tobacco: Former Cigarettes Housing Stability Answer Date Recorded What is your housing situation today? I have rosemary zuniga 06/02/[address] you li ve. Do you have problems with any of the following? None of the above 06/02/2024 Food Insecurity Answer Date Recorded Within the past 12 months, y ou worried that your food would run out before you got money to buy more: Often true 06/02/2024 Within the past 12 months,th e food you bought just didn't last and you didn't have enough money to get more: Often true Transportation Answer Date Recorded In the past 12 months, has l ack of transportation kept you from medical appts, meetings, work or from getting things needed for daily living? No 06/02/2024 Utilities Answer Date Recorded In the past 12 months, has t he electric, gas, oil or water company threatened to shut off services in your home? No 06/02/2024 Depression Answer Date Recorded Patient Health Questionnaire-2 Score 3 03/08/2024 Internet Access Answer Date Recorded Internet Access Q1 Yes 06/02/2024 Internet Access Q2 Not on file 06/02/2024 Comments Unknown Sex and Gender Information Value Date Recorded Sex Assigned at Female 2022 10:17 AM EDT Legal Sex Female 10:17 AM EDT Gender Identity Female 2022 10:17 AM EDT Sexual Orientation Straight 2022 10 :17 AM EDT documented as of this encounter Miscellaneous Notes * Telephone Encounter - Dahiana Bernal - 09/19/2024 9:37 AM EST Safety and Incident Councilman Dahiana Bernal spoke with patient. Patient is requesting refill on medications : Gabapentin, Flexeril, Oxycodone, and Xanax. Patient upset due to [employer] continuesto state that the PCP has not signed [employer]CH[employer] forms. Director General informed will look into. documented in this encounter Plan of Treatment Upcoming Encounters Date Type Department Care Team (Late st Contact Info) Description 10/19/2024 11:00 AM EST Clinical Support [facility] PEDS [address] [place] [address] Evelina Pimentel, WILBER [address] [place] [address] documented as of this encounter Visit Diagnoses Not on filedocumented in this encounter Care Teams Brush Loader And Handle Attacher Relationship Specialty Start Date End Date Clare Mo MD [address] [place] [address] PCP - General Internal Medicine 03/17/17 documented as of this encounter
--- OUTSIDE RECORDS SUMMARY | 2024-10-09 18:23 | XMS_ITS | Encounter Summary ---
Author Organization [employer] Address 75 [facility] 7 [place] [address] Care Team Providers Care Police Sergeant Precinct Name Role Phone Clare Mo MD Primary Care Provider +1- [phone] Reason for Visit * Reason Onset Date Comments Med Refill 04/14/2024 Encounter Details Date Type Department Care Team ([facility] st Contact Info) Description 04/14/2024 Telephone [facility] MEDICINE [address] [place] [address] Clare Mo MD [address] [place] [address] Med Refill Social History Tobacco Use Types Packs/Day Years Used Date Smoking Tobacco: Former Cigarettes Housing Stability Answer Date Recorded What is your housing situation today? I have rosemary zuniga 06/28/[address] you li ve. Do you have problems with any of the following? None of the above 06/28/2023 Food Insecurity Answer Date Recorded Within the past 12 months, y ou worried that your food would run out before you got money to buy more: Never True 06/28/2023 Within the past 12 months,th e food you bought just didn't last and you didn't have enough money to get more: Never True Transportation Answer Date Recorded In the past 12 months, has l ack of transportation kept you from medical appts, meetings, work or from getting things needed for daily living? No 06/28/2023 Utilities Answer Date Recorded In the past 12 months, has t he electric, gas, oil or water company threatened to shut off services in your home? No 06/28/2023 Depression Answer Date Recorded Patient Health Questionnaire-2 Score 3 03/08/2024 Comments Unknown Sex and Gender Information Value Date Recorded Sex Assigned at Female 2022 10:17 AM EDT Legal Sex Female 10:17 AM EDT Gender Identity Female 2022 10:17 AM EDT Sexual Orientation Straight 2022 10 :17 AM EDT documented as of this encounter Miscellaneous Notes * Telephone Encounter - Jaycob Martini - 04/14/2024 11:50 AM EDT TC from pt requesting medication refill. Medications needing refill : oxyCODONE-acetaminophen (Percocet) 10-325 MG tablet and ALPRAZolam (Xanax) 1 MG tablet To be sent to: [facility] - [place], [place] - [address] [place] [address] documented in this encounter Plan of Treatment Upcoming Encounters Date Type Department Care Team (Late st Contact Info) Description 10/19/2024 11:00 AM EST Clinical Support [facility] MED & PEDS 505 [place] [address] Evelina Pimentel RN 505 [place] [address] documented as of this encounter Visit Diagnoses Not on filedocumented in this encounter Care Teams Police Sergeant Precinct Relationship Specialty Start Date End Date Clare Mo MD [address] [place] [address] PCP - General Internal Medicine 03/17/17 documented as of this encounter
--- OUTSIDE RECORDS SUMMARY | 2024-10-09 18:23 | XMS_ITS | Encounter Summary ---
Author Organization [employer] Address [address] [place] [address] [place] [address] Care Team Providers Care Floor Assembler Name Role Phone Clare Mo MD Primary Care Provider +1- [phone] Reason for Referral * Consultation (Routine) - Authorized Specialty Diagnoses / Procedures Referred By Contac t Referred To Contact Orthopaedic Surgery Diagnoses Right hip pain SI joint arthritis (CMS/HCC) Clare Mo MD [address] [place] [address] Phone: tel: fax: [facility] [address] [place] [address] Drive [address] [place] [address] Phone: tel: fax: Referral ID Status Reason Start Date Expiration Date Visits Requested Visits Authorized [id number] Authorized Specialty Services Required 4 09/07/2025 6 6 Encounter Details Date Type Department Care Team ([facility] st Contact Info) Description 09/04/2024 Orders Only [facility] MED & PEDS [address] [place] [address] Clare Mo MD [address] [place] [address] Right hip pain (Primary Dx); SI joint arthritis (CMS/HCC) Social History Tobacco Use Types Packs/Day Years Used Date Smoking Tobacco: Former Cigarettes Housing Stability Answer Date Recorded What is your housing situation today? I have rosemary sing 06/02/[address] you li [...] AM EDT documented as of this encounter Plan of Treatment Upcoming Encounters Date Type Department Care Team (Late st Contact Info) Description 10/19/2024 11:00 AM EST Clinical Support [facility] MED & PEDS [address] [place] [address] Evelina Pimentel, WILBER 505 [place] [address] Scheduled Referrals Name Type Priority Associated Diagnoses Order Schedule Referral to Orthopaedic Surgery Outpatient Referral Routine Right hip pain SI joint arthritis (CMS/HCC) Expected: 09/04/2024 (Approximate), Expires: 09/04/2025 documented as of this encounter Visit Diagnoses Diagnosis Right hip pain- Primary Pain in joint, pelvic region and thigh SI joint arthritis (CMS/HCC) documented in this encounter Care Teams Floor Assembler Relationship Specialty Start Date End Date Clare Mo MD [address] [place] [address] PCP - General Internal Medicine 03/17/17 documented as of this encounter
--- OUTSIDE RECORDS SUMMARY | 2024-10-09 18:23 | XMS_ITS | Encounter Summary ---
Author Organization [employer] Address [address] [place] [address] [address] [place] [address] Care Team Providers Care Notching Machine Operator Name Role Phone Clare Mo MD Primary Care Provider +1- [phone] Reason for Visit * Reason Comments Med Refill Encounter Details Date Type Department Care Team ([facility] st Contact Info) Description 04/05/2023 Refill [facility] CH[facility] MED & PEDS [address] [place] [address] Clare Mo MD [address] [place] [address] Chronic midline low back pain with sciatica, sciatica laterality unspecified; Chronic low back pain, unspecified back pain laterality, unspecified whether sciatica present Social History Tobacco Use Types Packs/Day Years Used Date Smoking Tobacco: Former Cigarettes Comments Unknown Sex and Gender Information Value Date Recorded Sex Assigned at Female 2022 10:17 AM EDT Legal Sex Female 10:17 AM EDT Gender Identity Female 2022 10:17 AM EDT Sexual Orientation Straight 2022 10 :17 AM EDT COVID-19 Exposure Response Date Recorded In the last 10 days, have yo u been in contact with someone who was confirmed or suspected to have Coronavirus/COVID-19? No / Unsure 03/15/2023 2:43 PM EDT documented as of this encounter Miscellaneous Notes * Telephone Encounter - Evy Guadarrama RN - 04/19/2023 1:35 PM EDT Incoming message from provider: Please call. The chart was reviewed: The work up for the hand painwas ordered to rule out and inflammatory condition like Rheumatoid arthritis as the culprit of Ms May Macedo's pain. Her blood work is incomplete. Her sed rate and CRP are normal which indicate that there is not active inflammation. I still need to get the results of the KURTIS and RF ordered. I will add Diclofenac gel to apply to the affected areas 3 times a day pending the completion of the blood work. No need to increase the dose of the Oxycodone for now. I will order an Xray of the hands to r/o any lesions suggestive of Osteoarthritis. Pt will need either a copy of xray order or faxed to a destination of her choice. CHC team nurses will need to know if needs to be faxed. Please relay message. Thank you * Telephone Encounter - Evelina Rich RN - 04/16/2023 3:13 PM EDT TC to pt regarding message below. Pt still c/o of severe hand pain. States she understood the message. Will want to proceed with the xrays. * Telephone Encounter - Evelina Rich RN - 04/13/2023 9:53 AM EDT Pt c/o worsening fingers pain on L hand. States she told PCP about that at the last visit on 03/15/23but nothing other than lab wor has been done. Pt advised PCP on Vac this week and will be notified next week. Please advise. documented in this encounter Plan of Treatment Upcoming Encounters Date Type Department Care Team (Late st Contact Info) Description 10/19/2024 11:00 AM EST Clinical Support [facility] MED & PEDS [address] [place] [address] Evelina Pimentel RN 505 [place] [address] documented as of this encounter Visit Diagnoses Diagnosis Chronic midline low back pain with sciatica, sciatica laterality unspecified Chronic low back pain, unspecified back pain laterality, unspecified whether sciatica present documented in this encounter Care Teams Notching Machine Operator Relationship Specialty Start Date End Date Clare Mo MD 505 [facility] [place] [address] PCP - General Internal Medicine 03/17/17 documented as of this encounter
--- OUTSIDE RECORDS SUMMARY | 2024-10-09 18:23 | XMS_ITS | Encounter Summary ---
Author Organization [employer] Address 75 [facility] 7 [place] [address] Care Team Providers Care Hand Launderer Name Role Phone Clare Mo MD Primary Care Provider +1- [phone] Reason for Visit * Reason Onset Date Comments call back requested 09/04/2024 Encounter Details Date Type Department Care Team ([facility] Contact Info) Description 09/04/2024 Telephone [facility] MEDICINE [address] [place] [address] Clare Mo MD 505 [place] [address] call back requested Social History Tobacco Use Types Packs/Day Years [...] encounter Miscellaneous Notes * Telephone Encounter - Contreras Ike - 09/04/2024 8:13 AM EST TC from pt asking for Evy . Call Shortly disconnected Pt is to speak to Dahiana (ext [phone]) moving forward . documented in this encounter Plan of Treatment Upcoming Encounters Date Type Department Care Team (Late st Contact Info) Description 10/19/2024 11:00 AM EST Clinical Support [facility] MED & PEDS [address] [place] [address] Evelina Pimentel, WILBER 505 [place] [address] documented as of this encounter Visit Diagnoses Not on filedocumented in this encounter Care Teams Hand Launderer Relationship Specialty Start Date End Date Clare Mo MD 505 [place] [address] PCP - General Internal Medicine 03/17/17 documented as of this encounter
--- OUTSIDE RECORDS SUMMARY | 2024-10-09 18:23 | XMS_ITS | Encounter Summary ---
Author Organization [employer] Address 75 [facility] 7 [place] [address] Care Team Providers Care Bakery Sales Clerk Name Role Phone Clare Mo MD Primary Care Provider +1- [phone] Encounter Details Date Type Department Care Team ([facility] Contact Info) Description 09/29/2024 Orders Only [facility] CHC MED & PEDS [address] [place], [place] [phone] Clare Mo MD 505 [place] [address] Social History Tobacco Use Types Packs/Day Years [...] Description 10/19/2024 11:00 AM EST Clinical Support [facility] CHC MED & PEDS [address] [place] [address] Evelina Pimentel, WILBER 505 [place] [address] documented as of this encounter Visit Diagnoses Not on filedocumented in this encounter Care Teams Bakery Sales Clerk Relationship Specialty Start Date End Date Clare Mo MD [address] [place] [address] PCP - General Internal Medicine 03/17/17 documented as of this encounter
--- OUTSIDE RECORDS SUMMARY | 2024-10-09 18:23 | XMS_ITS | Encounter Summary ---
Author Organization [facility] Address [address] [place] [address] [facility] [place] [address] Care Team Providers Care Youth Services Specialist Name Role Phone Clare Mo MD Primary Care Provider +1- [phone] Encounter Details Date Type Department Care Team ([facility] Contact Info) Description 03/23/2023 Orders Only [facility] MED & PEDS 505 [place] [address] Clare Mo MD 505 [place] [address] Chronic low back pain with sciatica, sciatica laterality unspecified, unspecified back pain laterality (Primary Dx); Vitamin D deficiency Social History Tobacco Use Types Packs/Day Years [...] PM EDT documented as of this encounter Plan of Treatment Upcoming Encounters Date Type Department Care Team ([facility] Contact Info) Description 10/19/2024 11:00 AM EST Clinical Support [facility] MED & PEDS [address] [place] [address] Evelina Pimentel, WILBER 505 [place] [address] documented as of this encounter Visit Diagnoses Diagnosis Chronic low back pain with sciatica, sciatica laterality unspecified, unspecified back pain laterality- Primary Vitamin D deficiency documented in this encounter Care Teams Youth Services Specialist Relationship Specialty Start Date End Date Clare Mo MD 505 [place] [address] PCP - General Internal Medicine 03/17/17 documented as of this encounter
--- OUTSIDE RECORDS SUMMARY | 2024-10-09 18:23 | XMS_ITS | Encounter Summary ---
Author Organization [employer] Address 75 [facility] 7 [place] [address] Care Team Providers Care Field Property Loss Specialist Name Role Phone Clare Mo MD Primary Care Provider +1- [phone] Reason for Visit * Reason Comments Med Refill Encounter Details Date Type Department Care Team ([facility] st Contact Info) Description 09/19/2024 Refill [facility] MED & PEDS [address] [place] [address] Clare Mo MD [address] [place] [address] Anxiety; Chronic pain syndrome; Chronic low back pain with sciatica, sciatica laterality unspecified, unspecified back pain laterality Social History Tobacco Use Types Packs/Day Years Used Date Smoking Tobacco: Former Cigarettes Housing Stability Answer Date Recorded What is your housing situation today? I have rosemaryindy zuniga 06/02/[address] you [...] Upcoming Encounters Date Type Department Care Team ([facility] st Contact Info) Description 10/19/2024 11:00 AM EST Clinical Support [facility] CHC MED & PEDS [address] [place] [address] Evelina Pimentel, WILBER 505 [place] [address] documented as of this encounter Visit Diagnoses Diagnosis Anxiety Anxiety state, unspecified Chronic pain syndrome Chronic low back pain with sciatica, sciatica laterality unspecified, unspecified back pain laterality documented in this encounter Care Teams Field Property Loss Specialist Relationship Specialty Start Date End Date Clare Mo MD [address] [place] [address] PCP - General Internal Medicine 03/17/17 documented as of this encounter
--- OUTSIDE RECORDS SUMMARY | 2024-10-09 18:23 | XMS_ITS | Encounter Summary ---
Author Organization [employer] Address [address] [facility] [address] 7t [place] [address] Care Team Providers Care Automatic Clipper And Stripper Name Role Phone Clare Mo MD Primary Care Provider +1- [phone] Encounter Details Date Type Department Care Team ([facility] Contact Info) Description 10/03/2024 Telephone [facility] CHC MED & PEDS [address] [place], [place] [phone] Akanksha Bunch, WILBER Social History Tobacco Use Types Packs/Day Years [...] encounter Miscellaneous Notes * Telephone Encounter - Akanksha Bunch RN - 10/03/2024 10:05 AM EST Tc to pt to let them know per PCP Please call for a status check. Pt has mild left hip OA on her xray. I recommend physical therapy. I will refer if pt is interested. . Pt reports they have done PT in the past and it did not help with their sx. Pt states they were diagnosed with fibromyalgia when they went to the hospital. Pt denies need for PT services at this time. * Telephone Encounter - Akanksha Bunch RN - 10/03/2024 10:05 AM EST ----- Message from Clare Mo MD sent at 09/29/2024 11:35 AM EST ----- Please call for a status check. Pt has mild left hip OA on her xray. I recommend physical therapy. I will refer if pt is interested. ----- Message ----- From: Harmeet, Ris Results In Sent: 09/26/2024 1:22 PM EST To: Clare Mo MD documented in this encounter Plan of Treatment Upcoming Encounters Date Type Department Care Team (Late st Contact Info) Description 10/19/2024 11:00 AM EST Clinical Support [facility] CH[facility] MED & PEDS 505 [place] [address] Evelina Pimentel, RN 505 [place] [address] documented as of this encounter Visit Diagnoses Not on filedocumented in this encounter Care Teams Automatic Clipper And Stripper Relationship Specialty Start Date End Date Clare Mo MD [address] [place] [address] PCP - General Internal Medicine 03/17/17 documented as of this encounter
--- OUTSIDE RECORDS SUMMARY | 2024-10-09 18:24 | XMS_ITS | Encounter Summary ---
Author Organization [employer] [facility] Address [address] [place] [address] 7 [place] [address] Care Team Providers Care Marking Machine Tender Name Role Phone Clare Mo MD Primary Care Provider +1- [phone] Encounter Details Date Type Department Care Team ([facility] Contact Info) Description 03/03/2023 Abstract [facility] MED & PEDS [address] [place] [address] Kelsea Talley [place] Social History Tobacco Use Types Packs/Day Years Used Date Smoking Tobacco: Never Assessed Comments Unknown Sex and Gender Information Value [...] suspected to have Coronavirus/COVID-19? No / Unsure 03/05/2023 9:54 AM EDT documented as of this encounter Plan of Treatment Upcoming Encounters Date Type Department Care Team ([facility] Contact Info) Description 10/19/2024 11:00 AM EST Clinical Support [facility] MED & PEDS [address] [place] [address] Evelina Pimentel, WILBER [address] [place] [address] documented as of this encounter Visit Diagnoses Not on filedocumented in this encounter Care Teams Marking Machine Tender Relationship Specialty Start Date End Date Clare Mo MD [address] [place] [address] PCP - General Internal Medicine 03/17/17 documented as of this encounter
--- OUTSIDE RECORDS SUMMARY | 2024-10-09 18:24 | XMS_ITS | Encounter Summary ---
Author Organization [employer] Address 75 [facility] 7 [place] [address] Care Team Providers Care Planning Coordinator Name Role Phone Clare Mo MD Primary Care Provider +1- [phone] Reason for Visit * Reason Onset Date Comments Med Refill 05/29/2024 Encounter Details Date Type Department Care Team ([facility] st Contact Info) Description 05/29/2024 Telephone [facility] MEDICINE [address] [place] [address] Clare Mo MD 505 [place] [address] Med Refill Social History Tobacco Use Types [...] encounter Miscellaneous Notes * Telephone Encounter - Cristobal Rodriguez - 05/29/2024 9:34 AM EDT TC from pt requesting medication refill. Medications needing refill: oxyCODONE-acetaminophen (Percocet) 10-325 MG tablet ALPRAZolam (Xanax) 1 MG tablet To be sent to: [facility] - [place], [place] - [address] [place] [address] documented in this encounter Plan of Treatment Upcoming Encounters Date Type Department Care Team (Late st Contact Info) Description 10/19/2024 11:00 AM EST Clinical Support [facility] MED & PEDS [address] [place] [address] Evelina Pimentel, WILBER 505 [place] [address] documented as of this encounter Visit Diagnoses Not on filedocumented in this encounter Care Teams Planning Coordinator Relationship Specialty Start Date End Date Clare Mo MD 505 [place] [address] PCP - General Internal Medicine 03/17/17 documented as of this encounter
--- OUTSIDE RECORDS SUMMARY | 2024-10-09 18:24 | XMS_ITS | Encounter Summary ---
Author Organization [employer] Address 75 [facility] 7 [place] [address] Care Team Providers Care Aerospace Engineer Name Role Phone Clare Mo MD Primary Care Provider +1- [phone] Reason for Visit * Reason Onset Date Comments Med Refill 07/10/2024 Encounter Details Date Type Department Care Team ([facility] st Contact Info) Description 07/10/2024 Telephone [facility] MEDICINE [address] [place] [address] Clare Mo MD [address] [place] [address] Med Refill Social History Tobacco Use Types [...] * Telephone Encounter - Contreras Ike - 07/10/2024 3:09 PM EDT TC from pt requesting medication refill. Medications needing refill : oxyCODONE-acetaminophen (Percocet) 10-325 MG tablet ALPRAZolam (Xanax) 1 MG tablet To be sent to: [facility] pharmacy documented in this encounter Plan of Treatment Upcoming Encounters Date Type Department Care Team (Late st Contact Info) Description 10/19/2024 11:00 AM EST Clinical Support [facility] MED & PEDS [address] [place] [address] Evelina Pimentel, WILBER 505 [place] [address] documented as of this encounter Visit Diagnoses Not on filedocumented in this encounter Care Teams Aerospace Engineer Relationship Specialty Start Date End Date Clare Mo MD [address] [place] [address] PCP - General Internal Medicine 03/17/17 documented as of this encounter
--- OUTSIDE RECORDS SUMMARY | 2024-10-09 18:24 | XMS_ITS | Encounter Summary ---
Author Organization [employer] Address 75 [facility] 7 [place] [address] Care Team Providers Care Specialty Department Supervisor Name Role Phone Clare Mo MD Primary Care Provider +1- [phone] Reason for Visit * Reason Onset Date Comments Med Refill 07/26/2023 Encounter Details Date Type Department Care Team ([facility] st Contact Info) Description 07/26/2023 Telephone [facility] MEDICINE [address] [place] [address] Clare Mo MD 505 [place] [address] Med Refill Social History Tobacco Use Types [...] off services in your home? No 06/28/2023 Comments Unknown Sex and Gender Information Value Date Recorded Sex Assigned at Female 2022 10:17 AM EDT Legal Sex Female 10:17 AM EDT Gender Identity Female 2022 10:17 AM EDT Sexual Orientation Straight 2022 10 :17 AM EDT documented as of this encounter Miscellaneous Notes * Telephone Encounter - Ayla Gongora - 07/26/2023 8:44 AM EST Tc from pt requesting med refill on; ALPRAZolam (Xanax) 1 MG tablet oxyCODONE-acetaminophen (Percocet) 7.5-325 MG tablet documented in this encounter Plan of Treatment Upcoming Encounters Date Type Department Care Team (Late st Contact Info) Description 10/19/2024 11:00 AM EST Clinical Support [facility] MED & PEDS [address] [place] [address] Evelina Pimentel, WILBER 505 [place] [address] documented as of this encounter Visit Diagnoses Not on filedocumented in this encounter Care Teams Specialty Department Supervisor Relationship Specialty Start Date End Date Clare Mo MD 505 [place] [address] PCP - General Internal Medicine 03/17/17 documented as of this encounter
--- OUTSIDE RECORDS SUMMARY | 2024-10-09 18:24 | XMS_ITS | Encounter Summary ---
Author Organization [employer] Address 75 [facility] 7 [place] [address] Care Team Providers Care Drainage Inspector Name Role Phone Clare Mo MD Primary Care Provider +1 [phone] Encounter Details Date Type Department Care Team ([facility] Contact Info) Description 02/24/2024 Orders Only [facility] [address] [place], [place] [id number] ProviderRadhika MD Social History Tobacco Use Types Packs/Day Years Used Date Smoking Tobacco: Former Cigarettes Housing Stability Answer Date Recorded What is your housing situation today? I have rosemary nadia 06/28/[address] you li [...] [facility] MED & PEDS 505 [place] [address] Evelina Pimentel, RN 505 [place] [address] documented as of this encounter Procedures Procedure Name Priority Date/Time Associated Diagnosis Comments MRI CERVICAL SPINE WO CONTRAST Routine 02/01/2024 1:46 PM EDT documented in this encounter Results * MRI CERVICAL SPINE WO CONTRAST (02/01/2024 1:46 PM EDT) Anatomical Region Laterality Modality Magnetic Resonan ce us Historical Provider MD [facility] MRI PROCEDURES Final Result documented in this encounter Visit Diagnoses Not on filedocumented in this encounter Care Teams Drainage Inspector Relationship Specialty Start Date End Date Clare Mo MD 505 [place] [address] PCP - General Internal Medicine 03/17/17 documented as of this encounter
--- OUTSIDE RECORDS SUMMARY | 2024-10-09 18:24 | XMS_ITS | Encounter Summary ---
Author Organization [employer] Address [address] [place] [address] [place] [address] Care Team Providers Care Leather Stripping Machine Operator Name Role Phone Clare Mo MD Primary Care Provider [phone]- [phone] Encounter Details Date Type Department Care Team ([facility] Contact Info) Description 02/12/2023 Orders Only [facility] MED & PEDS [address] [place] [address] Clare Mo MD [address] [place] [address] Chronic low back pain with sciatica, sciatica [...] suspected to have Coronavirus/COVID-19? No / Unsure 02/15/2023 1:00 PM EDT documented as of this encounter Plan of Treatment Upcoming Encounters Date Type Department Care Team ([facility] Contact Info) Description 10/19/2024 11:00 AM EST Clinical Support [facility] MED & PEDS [address] [place], [place] [phone] Evelina Pimentel, WILBER [address] [place] [phone] documented as of this encounter Procedures Procedure Name Priority Date/Time Associated Diagnosis Comments PAP SMEAR Routine 03/08/2023 12:18 PM EDT Chronic low back pain with sciatica, sciatica laterality unspecified, unspecified back pain laterality documented in this encounter Results * Pap Smear (03/08/2023 12:18 PM EDT) 03/08/2023 12:1 8 PM EDT 03/10/2023 8:55 AM EDT [facility] - 03/27/2023 3:23 PM EDT ----- ------- Name: May Beckwith ?Age/Sex: 42/F ? : 1980 Unit#: [id number] ?? Attend Dr: Jeff William MD ?Re03/08/23 ?Status: DEP REF ? Location: HO.LNP ?Disch: ? ----- ------- SPEC : [id number] ? RECD: 03/10/23 ? STATUS: ??SOUT ? REQ NUM: [id number] ? BRANDON: 03/08/238 ? SUBM DR: Jeff William MD ? ENTERED: ??03/10/23 ?SP TYPE: Pap Smr ?OTHR DR: Clare Mo MD ? ORDERED: ??Pap Smear ? Interpretation ?? Satisfactory for evaluation. ?? No endocervical cells seen. ?? Negative for intraepithelial lesion or malignancy. ? HPV mRNA E6/E7: ?NOT DETECTED ? This assay detects E6/E7 viral messenger RNA (mRNA) from 14 high-risk HPV types (16, 18, ?? 31, 33, 35, 39, 45, 51, 52, 56, 58, 59, 66, 68) ? HPV testing performed by [facility], [place], [place]. ??See reference laboratory ?? portion of the EMR for entire report. ?Clinical Information LMP: 03/05/23 Previous PAP test: Unknown date/findings ? Material Received ?? ThinPrep-Cervical Copies To: ?? Clare Mo MD ?? [address] ?? [place] [address] ? Jeff William MD ?? [address] [place] [address] [address]. [address] ?? [place] [address] ?? [phone] ----- ------- Signed (signature on file) Alondra Flores Tyrell 03/27/23 1523 ? ----- ------- ? END OF REPORT ? [facility] External Provider LAB [facility] ORDERABLES Final Result [facility] [address] [place] [address] [phone] documented in this encounter Visit Diagnoses Diagnosis Chronic low back pain with sciatica, sciatica laterality unspecified, unspecified back pain laterality documented in this encounter Care Teams Leather Stripping Machine Operator Relationship Specialty Start Date End Date Clare Mo MD [address] [place] [id number] PCP - General Internal Medicine 03/17/17 documented as of this encounter
--- OUTSIDE RECORDS SUMMARY | 2024-10-09 18:24 | XMS_ITS | Encounter Summary ---
Author Organization [employer] Address [address] [facility] 7 [place] [address] Care Team Providers Care Software Support Representative Name Role Phone Clare Mo MD Primary Care Provider [phone]- [phone] Reason for Visit * Reason Onset Date Comments Med Refill 06/20/2024 Encounter Details Date Type Department Care Team ([facility] st Contact Info) Description 06/20/2024 Telephone [facility] MEDICINE [address] [place] [address] Clare Mo MD [address] [place] [address] Med Refill Social History Tobacco Use Types [...] encounter Miscellaneous Notes * Telephone Encounter - Letitia Dang - 06/20/2024 9:40 AM EDT Tc from pt requesting a refill for oxyCODONE-acetaminophen (Percocet) 10-325 MG tablet , and ALPRAZolam (Xanax) 1 MG tablet documented in this encounter Plan of Treatment Upcoming Encounters Date Type Department Care Team (Late st Contact Info) Description 10/19/2024 11:00 AM EST Clinical Support [facility] MED & PEDS [address] [place] [address] Eevlina Pimentel, WILBER [address] [place] [address] documented as of this encounter Visit Diagnoses Not on filedocumented in this encounter Care Teams Software Support Representative Relationship Specialty Start Date End Date Clare Mo MD [address] [place] [address] PCP - General Internal Medicine 03/17/17 documented as of this encounter
--- OUTSIDE RECORDS SUMMARY | 2024-10-09 18:24 | XMS_ITS | Encounter Summary ---
Author Organization [employer] Address [address] [place] [address] Care Team Providers Care Construction Equipment Mechanic Name Role Phone Clare Mo MD Primary Care Provider [phone] [phone] Reason for Visit * Reason Onset Date Comments Advice Only 09/14/2024 Encounter Details Date Type Department Care Team ([facility] st Contact Info) Description 09/14/2024 Telephone Neurosurgery [facility] [address] [phone] Keli Suggs MD [address] [place] [address] Advice Only Social History Tobacco Use Types Packs/Day Years Used Date Smoking Tobacco: Former Smokeless Tobacco: Never Sex and Gender Information Value Date Recorded Sex Assigned at Not on file Gender Identity Not on file Sexual Orientation Not on file Job Start Date Occupation Industry Not on file Not on file Not on file documented as of this encounter Progress Notes * GANGA Leblanc - 09/14/2024 4:46 PM EST Spoke to the patient. She says that she is miserable and worse since the EMG. I told her that the EMG really only revealed borderline left carpal tunnel syndrome. She would like to come in and see Dr. Suggs. Please call her to schedule an appointment. * Ericka Vu - 09/14/2024 11:46 AM EST Patient called due to feeling nauseous since procedure on . She wasn't sure what that was, but , looks like we put her in for an EMG. Please call. documented in this encounter Plan of Treatment Upcoming Encounters Date Type Department Care Team (Late st Contact Info) Description 10/17/2024 2:00 PM EST Office Visit [facility] [address] [phone] Keli Suggs MD [address] [place] [address] documented as of this encounter Visit Diagnoses Not on filedocumented in this encounter Care Teams Construction Equipment Mechanic Relationship Specialty Start Date End Date Clare Mo MD [address] [place] [address] PCP - General 01/11/24 documented as of this encounter
--- OUTSIDE RECORDS SUMMARY | 2024-10-09 18:24 | XMS_ITS | Encounter Summary ---
Author Organization [employer] Address [address] [facility] 7 [place] [address] Care Team Providers Care Communication Assistant Name Role Phone Clare Mo MD Primary Care Provider [phone]- [phone] Reason for Visit * Reason Comments Med Refill Encounter Details Date Type Department Care Team ([facility] st Contact Info) Description 01/25/2024 Refill [facility] MEDICINE [address] [place] [address] Clare Mo MD [address] [place], [place] [phone] Chronic low back pain with sciatica, sciatica laterality unspecified, unspecified back pain laterality; Anxiety Social History Tobacco Use Types Packs/Day Years [...] t he electric, gas, oil or water [employer] threatened to shut off services in your [...] Description 10/19/2024 11:00 AM EST Clinical Support [facility] MED & PEDS [address] [place] [address] Evelina Pimentel, WILBER [address] [place] [address] documented as of this encounter Visit Diagnoses Diagnosis Chronic low back pain with sciatica, sciatica laterality unspecified, unspecified back pain laterality Anxiety Anxiety state, unspecified documented in this encounter Care Teams Communication Assistant Relationship Specialty Start Date End Date Clare Mo MD [address] [place] [address] PCP - General Internal Medicine 03/17/17 documented as of this encounter
--- OUTSIDE RECORDS SUMMARY | 2024-10-09 18:24 | XMS_ITS | Encounter Summary ---
Author Organization [employer] [facility] Address [address] [place] [address] [place] [address] Care Team Providers Care Auto Bumper Straightener Name Role Phone Clare Mo MD Primary Care Provider +1- [phone] Reason for Visit * Reason Comments Med Refill Encounter Details Date Type Department Care Team ([facility] Contact Info) Description 02/24/2023 Refill [facility] MED & PEDS [address] [place] [address] Clare Mo MD [address] [place] [address] Anxiety; Chronic low back pain with sciatica, sciatica [...] Upcoming Encounters Date Type Department Care Team ([facility] Contact Info) Description 10/19/2024 11:00 AM EST Clinical Support [facility] MED & PEDS [address] [place] [address] Evelina Pimentel, WILBER [address] [place] [address] documented as of this encounter Visit Diagnoses Diagnosis Anxiety Anxiety state, unspecified Chronic low back pain with sciatica, sciatica laterality unspecified, unspecified back pain laterality documented in this encounter Care Teams Auto Bumper Straightener Relationship Specialty Start Date End Date Clare Mo MD [address] [place] [address] PCP - General Internal Medicine 03/17/17 documented as of this encounter
--- OUTSIDE RECORDS SUMMARY | 2024-10-09 18:24 | XMS_ITS | Encounter Summary ---
Author Organization [employer] Address 75 [facility] 7 [place] [address] Care Team Providers Care Book Sewer Name Role Phone Clare Mo MD Primary Care Provider +1- [phone] Reason for Visit * Reason Onset Date Comments Med Refill 03/03/2024 Encounter Details Date Type Department Care Team ([facility] st Contact Info) Description 03/03/2024 Telephone [facility] MEDICINE [address] [place] [address] Clare Mo MD [address] [place] [address] Med Refill Social History Tobacco Use Types [...] encounter Miscellaneous Notes * Telephone Encounter - Yvonne Gutierrez LPN - 03/03/2024 10:29 AM EDT Medications not pended as they should both have refills at [facility]. * Telephone Encounter - Ayla Gongora - 03/03/2024 10:18 AM EDT TC from pt requesting medication refill. Medications needing refill : cyclobenzaprine (Flexeril) 10 MG tablet gabapentin (Neurontin) 800 MG tablet To be sent to: [facility] - [place], [place] - [address] [place] [address] documented in this encounter Plan of Treatment Upcoming Encounters Date Type Department Care Team ([facility] st Contact Info) Description 10/19/2024 11:00 AM EST Clinical Support [facility] MED & PEDS [address] [place] [address] Evelina Pimentel, RN [address] [place] [address] documented as of this encounter Visit Diagnoses Diagnosis Anxiety Anxiety state, unspecified Chronic low back pain with sciatica, sciatica laterality unspecified, unspecified back pain laterality documented in this encounter Care Teams Book Sewer Relationship Specialty Start Date End Date Clare Mo MD [address] [place] [address] PCP - General Internal Medicine 03/17/17 documented as of this encounter
--- OUTSIDE RECORDS SUMMARY | 2024-10-09 18:24 | XMS_ITS | Encounter Summary ---
Author Organization [employer] [facility] Address [address] [place] [address] [place] [address] Care Team Providers Care Melter Loader Name Role Phone Clare Mo MD Primary Care Provider [phone]- [phone] Encounter Details Date Type Department Care Team (Latest Contact Info) Description 08/16/2020 Abstract [facility] CONVERSIONS Dental, Provider, DDS Social History Tobacco Use Types Packs/Day Years [...] Upcoming Encounters Date Type Department Care Team ([facility] st Contact Info) Description 10/19/2024 11:00 AM EST Clinical Support [facility] MED & PEDS [address] [place] [address] Evelina Pimentel, WILBER [address] [place] [address] documented as of this encounter Visit Diagnoses Not on filedocumented in this encounter Care Teams Melter Loader Relationship Specialty Start Date End Date Clare Mo MD [address] [place] [address] PCP - General Internal Medicine 03/17/17 documented as of this encounter
--- OUTSIDE RECORDS SUMMARY | 2024-10-09 18:24 | XMS_ITS ---
Author Organization [employer] Address [address] [place] [address] [place] [address] Care Team Providers Care Manager Social Media Name Role Phone Clare Mo MD Primary Care Provider THREADING MACHINE [employer] Status:Enrolled (Active) Start date:01/06/2023 Enrollment date:01/06/2023 Case Team Name Relationship Phone Evelina Pimentel RN Registered Nurse(Responsible S taff) Continued Care and Services Coordination
--- OUTSIDE RECORDS SUMMARY | 2024-10-09 18:24 | XMS_ITS | Encounter Summary ---
Author Organization [employer] Address 75 [facility] 7 [place] [address] Care Team Providers Care Plant Cytologist Name Role Phone Clare Mo MD Primary Care Provider [phone]- [phone] Reason for Visit * Reason Onset Date Comments Med Refill 08/07/2024 Encounter Details Date Type Department Care Team ([facility] st Contact Info) Description 08/07/2024 Telephone [facility] MEDICINE [address] [place] [address] Clare Mo MD [address] [place] [address] Med Refill Social History Tobacco Use Types [...] encounter Miscellaneous Notes * Telephone Encounter - Booshilpa Alton - 08/07/2024 8:05 AM EST TC from pt requesting medication refill. Medications needing refill : oxyCODONE-acetaminophen (Percocet) 10-325 MG tablet and ALPRAZolam (Xanax) 1 MG tablet To be sent to: [facility] pharmacy documented in this encounter Plan of Treatment Upcoming Encounters Date Type Department Care Team (Late st Contact Info) Description 10/19/2024 11:00 AM EST Clinical Support [facility] MED & PEDS [address] [place] [address] Evelina Pimentel RN [address] [place] [address] documented as of this encounter Visit Diagnoses Not on filedocumented in this encounter Care Teams Plant Cytologist Relationship Specialty Start Date End Date Clare Mo MD [address] [place] [address] PCP - General Internal Medicine 03/17/17 documented as of this encounter
--- OUTSIDE RECORDS SUMMARY | 2024-10-09 18:24 | XMS_ITS | Clinical Summary ---
Author Organization 175 [facility] Address [address] [place] [address] Phone Care Team Providers Care Organ Assembler Name Role Phone Clare Mo MD Primary Care Provider [phone] [phone] Allergies No known active allergies Medications Medication Sig Dispensed Refills Start Date End Date Status oxyCODONE (ROXICODONE) 10 mg immediate release tablet Take by mouth. Active gabapentin (NEURONTIN) 800 mg tablet Take 1 Tablet by mouth 3 times daily. Active cyclobenzaprine (FLEXERIL) 10 mg tablet Take 1 Tablet by mouth 3 times daily as needed. Active ALPRAZolam (XANAX) 1 mg tablet Take 1 tablet (1 mg total) by mouth 1 (one) time each day if needed. for anxiety 07/20/2024 Active oxyCODONE-acetaminophe n (PERCOCET) 10-325 mg per tablet Take 1 tablet by mouth every 6 (six) hours if needed for severe pain. 07/14/2024 Active ibuprofen (ADVIL,MOTRIN) 800 mg tablet TAKE 1 TABLET EVERY 8 HOURS FOR PAIN 09/04/2024 Active Active Problems Problem Noted Date Diagnosed Date Left hip pain 09/19/2024 Assessment & Plan (09/20/2024 10:06 AM EST): Ms. Macedo describes significant pain at the left hip. She had pain with hip mechanical testing on the left hand side. She was tender at the greater trochanter. She had x-rays of the hip performed at [facility] on 08/01/24. They revealed calcific tendinitis at the right greater trochanter. She asked for referral to orthopedics to have her hip evaluated and I will supply that. Cervical spondylosis 01/27/2024 Overview (07/25/2024): Last Assessment & Plan: While patient was here for her postop visit, she mentioned the tingling that was in the distal fingertips up toward the DIP joint has moved slightly more proximal toward the PIP joints. She states that her arms are overhead for any length of time, the arms get very numb. When she was going for waxing and had her arms overhead, she had to ask the maintenance technician to help her move her arms back down. Patient had cervical MRI 02/08/2024 that I had reviewed with Dr. Suggs prior to her lumbar surgery, she was noted to have multilevel DDD C4-5, C5-6, C6-7. Her worst 2 levels were C4-5 and C5-6 with kyphosis at C4-5. She had C5-6 disc bulging with central stenosis, R >L foraminal stenosis. There is also degenerative changes at C4-5 >C6-7 with left foraminal narrowing, but most prominent at C5-6 level. The signal change in the spinal cord that was noted on the omalley sagittal lumbar spine MRI image is not as noticeable on this MRI, but there is possibly slight signal change at C5-6. I reviewed the MRI images with the patient and her significant other in the office today. I again reviewed the MRI images with Dr. Suggs while patient was here. Dr. Suggs states when patient follows up with her they can discuss C4-5, C5-6 ACDF surgery. We did spend some time discussing the procedure today. Dr. Suggs would like the patient to first heal from her lumbar surgery prior to deciding on cervical fusion. All questions answered. I asked patient to call if she has any worsening symptoms prior to her next appointment. Assessment & Plan (09/19/2024 4:14 PM EST): Ms. Macedo continues to describe neck pain with radiation to her interscapular region and both arms. An MRI of the cervical spine from January of this year at [facility] veal degenerative changes most significant at C5-6 and to a lesser degree at C4-5 and C6-7. An EMG and nerve conduction study performed recently revealed borderline left median neuropathy at the wrist but no cervical radiculopathy. Told the patient I would review the films and her story with Dr. Suggs. At this point he asked for a prescription for a cervical support pillow and I did supply that. Assessment & Plan (07/28/2024 4:25 PM EST): Patient describes 1 month history of stabbing pain under her left arm/axilla, neck stiffness and pain, recalls waking up about a month ago, she fell asleep on her stomach, her hands were cramped up and numb bilaterally 2nd-4th digits, this has happened a couple times as well since then. She has had a couple visits to the emergency department, states they gave her Toradol and Dilaudid, told her she likely has fibromyalgia. Saw machine umbrella tipper, was started on vitamin D, magnesium, vitamin B complex. She is on chronic oxycodone, gabapentin, Xanax and Flexeril. I reviewed patient's MRI C-spine and x-rays with Dr. Suggs back in January, patient does have C5-6 disc bulging with central stenosis, R >L foraminal stenosis. There are mild degenerative changes at C4-5 >C6-7, but most prominent at C5-6 level. The signal change in the spinal cord that was noted on the omalley sagittal lumbar spine MRI image is not as noticeable on this cervical MRI, but there is possibly slight signal change at C5-6. No instability on x-rays. I reviewed MRI images with patient in detail on the computer. Patient describes neck pain and intrascapular pain, pain in the left arm, bilateral hand numbness and cramping in the second third and fourth digits bilaterally, patient noticed it initially at nighttime, sometimes happens during the day as well. Recent thyroid labs WNL. I will order upper extremity EMG/NCS study to rule out carpal tunnel contributing to some of her symptoms. I will have her follow-up with Dr. Suggs afterward to see if she recommends any surgical intervention based on results. I also gave patient prescription for bilateral wrist splints to try to wear at bedtime, see if it helps any of the hand numbness and cramping. Lumbar disc herniation with radiculopathy 2023 Overview (07/25/2024): Last Assessment & Plan: Patient is 10 days s/p left L4-5 minimally invasive discectomy. She no longer gets the pain that radiates down the left leg, no longer has the numbness in the inner thighs, occasional tingling. She has a residual pinching pain in the left buttock, but states that used to be constant and severe, now fluctuates from mild to severe through the day. She notes if she has to stand >4 hours her legs feel swollen. Overall she notes improvement in the lumbar radiculopathy symptoms. No issues with fever or wound drainage. Ms. Macedo is doing well postop, hopefully will note continued improvement with time as things heal. She can follow-up with Dr. Suggs for second postop visit, patient states she is on vacation for couple weeks in March, will be back after the , we scheduled her appointment. I asked her to call with any concerns or questions prior to that time. Assessment & Plan (07/28/2024 4:06 PM EST): Patient is s/p left L4-5 minimally invasive discectomy 02/15/2024 and initially was doing well and saw improvement in the left leg pain. Now she describes 1 month history of pain in the left low back/buttock, hip and severe left foot pain, does not recall specific trauma to the foot, but has had multiple falls in the last month, recalled a couple falls in the shower for example. She was not sure if symptoms were the same as when she had radiculopathy preop, but thinks it may be similar in distribution especially with the pinching in the buttock. She was complaining of hip pain to her PCP, they put in an order for hip x-rays, patient has not been able to go yet but will try to do so this coming week. She states the left foot has numbness and pain, her balance seems to be getting worse with time. She has history of lumbar cortisone injections back in 2020 at [facility]. She has been walking with a walker. Ms. Macedo describes left low back, buttock, hip and foot pain. She is having to walk with a walker, feels her balance is poor. We can check updated lumbar spine MRI with and without contrast to rule out recurrent disc herniation/nerve root compression. She would also like to be referred back to [facility] to see if they would offer left SI joint injection, she has tenderness over the SI joint, pain in the SI joint region with external hip rotation. She will go for the hip x-rays (already ordered by PCP) this coming week. We will follow-up with her after imaging is complete. Encounters Date Type Department Care Team Description 09/19/2024 2:30 PM EST Office Visit [facility] [address] [phone] Juan J Hodges PA Left hip pain (Primary Dx); Cervical spondylosis 09/14/[address] [phone] Keli Suggs MD Advice Only 08/14/[address] [phone] Ria Rojas [place] Appointment (Called Pt 2:34PM 08/14/24 regarding appt with [facility] to see if scheduled. Pt reported she had not and asked for the phone number. She said she would call and schedule. //Called to [facility] regarding appt. Spoke with Melissa who stated that Pt called to schedule. The NOS policy was reviewed with Pt ( as a result of Pt past it was explained ) and [facility] would schedule Pt as New. Pt, with that, did not wish to be scheduled and ended the phone call. ) 08/14/2024 Telephone [facility] [address] [phone] Georgia Huynh PA 08/08/2024 2:00 PM EST - 08/08/2024 11:59 PM EST Hospital Encounter [facility] MRI [address] [place] [phone] Lumbar disc herniation with radiculopathy Discharge Disposition: Home or Self Care 08/08/[address] [phone] Ria Rojas [place] Appointment (Called Pt regarding scheduled appt with [facility], Dr Satinder Carroll. Pt was provided with appt date 09/12/24 @ 7:30am in [place] location. Will mail info to Pt as she was unable to record information at the moment. ) 07/31/[address] [phone] Ria Rojas [place] Radiology (No PA required - MRI Lumbar Spine faxed to [facility] - Will notify Pt with time and date of appt. ) 07/28/2024 3:00 PM EST Office Visit [address] [phone] Georgia Huynh PA Numbness and tingling in both hands (Primary Dx); Cervical spondylosis; Lumbar disc herniation with radiculopathy; Sacroiliac joint pain 07/24/[address] [phone] Maria Esther Elena MA from Last 3 Months Immunizations Name Administration Dates Next Due Influenza trivalent, 0.5mL, preservative free (Fluarix; FluLaval; Fluzone) ages 6mo and older (Afluria) 3 years and older 07/02/2022,06/17/2021,06/05/2019,2017 Moderna (age 6mo & older) Bi valent, COVID-19, 0.5 mL or 0.25 mL dosage 02/26/2023 Moderna SARS-CoV-2 COVID-19, mRNA, LNP-S, preservative free 02/26/2023 Tdap Tetanus diptheria acell ular pertussis (Boostrix; Adacel) 7yo and older 06/27/2019,06/22/2018 Surgical History Surgery Date Site/Laterality Comments APPENDECTOMY N/A HISTORICAL APPENDECTOMY TUBAL LIGATION N/A with subsequent reversal in 2018, ectopic in 2019 OTHER SURGICAL HISTORY N/A Cholecystectomy NECK SURGERY 08/04/2021 s/p left C7-T1 discectomy, Dr. Suggs BACK SURGERY 02/15/2024 Left L4-5 MIS discectomy, Dr. Suggs Medical History Medical History Date Comments Migraine DX:Migraine Change in weight DX:Change in we ight History of fainting 2023 DX:History o f fainting; COMMENT: low BP Memory difficulties DX:Memory di fficulties Difficulty concentrating DX:Diff iculty concentrating Blurred vision DX:Blurred visio n Loss of sensation DX:Loss of sen sation Anxiety and depression DX:Anxiet y and depression Rheumatoid arthritis (CMS/HCC) D X:Rheumatoid arthritis (HCC) Ringing in ears DX:Ringing in ea rs Breast pain DX:Breast pain; COMMENT: chronic; infreq left breast discharge Social History Tobacco Use Types Packs/Day Years Used Date Smoking Tobacco: Former Smokeless Tobacco: Never Tobacco Cessation:Counseling Given: Not Answered Sex and Gender Information Value Date Recorded Sex Assigned at Not on file Gender Identity Not on file Sexual Orientation Not on file Job Start Date Occupation Industry Not on file Not on file Not on file Obstetrics History Last Filed Vital Signs Vital Sign Reading Time Taken Comments Blood Pressure - - Pulse - - Temperature - - Respiratory Rate - - Oxygen Saturation - - Inhaled Oxygen Concentration - - Weight 85.7 kg (189 lb) 09/19/2024 2:24 PM EST Height 172.7 cm (5' 8 ) 09/19/2024 2:24 PM EST Body Mass Index 28.74 09/19/2024 2:24 PM EST Plan of Treatment Upcoming Encounters Date Type Department Care Team (Late st Contact Info) Description 10/17/2024 2:00 PM EST Office Visit [facility] 175 [facility] [address] [place] [phone] Keli Suggs MD [address] [place] [address] Health Maintenance Due Date Last Done Comments Breast Cancer Screening 1978 Hepatitis B Vaccines (1 of 3 - 19+ 3-dose series) 1997 Colorectal Cancer Screening: Colonoscopy 08/16/2022 Depression Screening 08/16/2022 HIV Screening 08/16/2022 Hepatitis C Screening 08/16/2022 Medicare Annual Wellness Visit 08/16/2022 Social Influencers of Health Screening 08/16/2022 COVID-19 Vaccine ( season) 2024 08/27/2023, 02/26/2023, 02/26/2023, Additional history exists Influenza Vaccine (#1) 2024 , 06/17/2021, 06/05/2019, Additional history exists Cervical Cancer Screening: Pap Smear 03/08/2026 03/08/2023 Cholesterol Screening (Lipid Panel) 07/04/2026 07/04/2021 DTaP,Tdap,and Td Vaccines (3 - Td or Tdap) 06/27/2029 06/27/2019, 06/22/2018 HIB Vaccines Aged Out No longer eligi ble based on patient's age to complete this topic HPV Vaccines Aged Out No longer eligi ble based on patient's age to complete this topic Hepatitis A Vaccines Aged Out No long er eligible based on patient's age to complete this topic IPV Vaccines Aged Out No longer eligi ble based on patient's age to complete this topic MMR Vaccines Aged Out No longer eligi ble based on patient's age to complete this topic Meningococcal ACWY Vaccine Aged Out N o longer eligible based on patient's age to complete this topic Pneumococcal Vaccine: Pediatrics (0 to 5 Years) and At-Risk Patients (6 to 64 Years) Aged Out No longer eligible based on patient's age to complete this topic RSV Immunization Patients Under 20 months Aged Out No longer eligible based on patient's age to complete this topic Varicella Vaccines Aged Out No longer eligible based on patient's age to complete this topic Procedures Procedure Name Priority Date/Time Associated Diagnosis Comments MR LUMBAR SPINE WO AND W CONTRAST Routine 08/08/2024 3:10 PM EST Lumbar disc herniation with radiculopathy EXTERNAL XRAY REPORT Routine 08/01/2024 8:23 AM EST from Last 3 Months Results * MR Lumbar Spine wo and w Contrast (08/08/2024 3:10 PM EST) Anatomical Region Laterality Modality L-spine, Spine Magnetic Resonan ce 08/09/2024 8:24 AM EST Impressions 08/09/2024 8:55 AM EST Mild degenerative changes of the lumbar spine. ??No significant spinal or foraminal stenosis. -------- FINAL REPORT -------- Dictated By: Ralph Beth Dictated Date: 08/09/2024 08:24 ET Assigned Physician: Ralph Beth Reviewed and Electronically Signed By: Ralph Beth Signed Date: 08/09/2024 08:55 ET Workstation ID: [id number] Transcribed By: Self Edit Transcribed Date: 08/09/2024 08:24 ET Narrative 08/09/2024 8:55 AM EST MRI of the lumbar spine, 08/08/2024. HISTORY: Low back pain, prior surgery, new symptoms. ??Left leg and foot pain. TECHNIQUE: Sagittal and axial multisequence MRI of the lumbar spine with and without intravenous contrast administration. IV contrast dose: 17 mL Dotarem from a 20 mL vial with 3 mL discarded. COMPARISON: None. FINDINGS: There is a partially visible 2 cm fluid signal structure in the right pelvis, likely a functional cyst in a patient of this age but incompletely evaluated. ??Visualized soft tissues are otherwise unremarkable. Slight lumbar levocurvature. ??No compression deformity. ??No listhesis. ??Modic endplate changes at L4-5 and L5-S1 but no concerning marrow signal. Normal position of the conus at L1. ??No abnormal enhancement of the conus or nerve roots of the cauda equina. Lumbar disc levels: L1-2: Only imaged in the sagittal plane. ??Minimal endplate irregularity. ??No spinal or foraminal stenosis. L2-3: Minimal endplate irregularity. ??Small broad-based left central protrusion. ??Slight widening of the right facet joint suggesting mild hypermobility. ??No spinal or foraminal stenosis. L3-4: Slight widening of the right greater than left facet joint suggesting mild hypermobility. ??No spinal or foraminal stenosis. L4-5: Mild disc space height loss and endplate irregularity. ??Minimal symmetric disc bulge and minimal bilateral facet arthropathy without spinal or foraminal stenosis. L5-S1: Mild disc space height loss and endplate irregularity. ??Very small symmetric disc bulge. ??No spinal or foraminal stenosis. Procedure Note Ralph Beth MD - 08/09/2024 MRI of the lumbar spine, 08/08/2024. HISTORY: Low back pain, prior surgery, new symptoms. Left leg and footpain. TECHNIQUE: Sagittal and axial multisequence MRI of the lumbar spine withand without intravenous contrast administration. IV contrast dose: 17 mL Dotarem from a 20 mL vial with 3 mL discarded. COMPARISON: None. FINDINGS: There is a partially visible 2 cm fluid signal structure in the rightpelvis, likely a functional cyst in a patient of this age but incompletelyevaluated. Visualized soft tissues are otherwise unremarkable. Slight lumbar levocurvature. No compression deformity. No listhesis.Modic endplate changes at L4-5 and L5-S1 but no concerning marrowsignal. Normal position of the conus at L1. No abnormal enhancement of the conusor nerve roots of the cauda equina. Lumbar disc levels: L1-2: Only imaged in the sagittal plane. Minimal endplate irregularity.No spinal or foraminal stenosis. L2-3: Minimal endplate irregularity. Small broad-based left centralprotrusion. Slight widening of the right facet joint suggesting mildhypermobility. No spinal or foraminal stenosis. L3-4: Slight widening of the right greater than left facet jointsuggesting mild hypermobility. No spinal or foraminal stenosis. L4-5: Mild disc space height loss and endplate irregularity. Minimalsymmetric disc bulge and minimal bilateral facet arthropathy withoutspinal or foraminal stenosis. L5-S1: Mild disc space height loss and endplate irregularity. Very smallsymmetric disc bulge. No spinal or foraminal stenosis. IMPRESSION: Mild degenerative changes of the lumbar spine. No significant spinal orforaminal stenosis. -------- FINAL REPORT -------- Dictated By: Ralph Beth Dictated Date: 08/09/2024 08:24 ET Assigned Physician: Ralph Beth Reviewed and Electronically Signed By: Ralph Beth Signed Date: 08/09/2024 08:55 ET Workstation ID: [id number] Transcribed By: Self Edit Transcribed Date: 08/09/2024 08:24 ET Georgia SCHULER IMG MRI PROCEDURES * External Xray Report (08/01/2024 8:23 AM EST) Anatomical Region Laterality Modality Radiographic Brittany ging Historical Provider IMG XR PROCEDURES from Last 3 Months Care Teams Organ Assembler Relationship Specialty Start Date End Date Clare Mo MD [address] [place], [place] PCP - General 01/11/24
--- OUTSIDE RECORDS SUMMARY | 2024-10-09 18:24 | XMS_ITS | Encounter Summary ---
Author Organization [employer] Address [address] [facility] 7 [place] [address] Care Team Providers Care Pyrometallurgical Engineer Name Role Phone Clare Mo MD Primary Care Provider [phone]- [phone] Reason for Visit * Reason Onset Date Comments Call Back Request 11/30/2023 Encounter Details Date Type Department Care Team ([facility] Contact Info) Description 11/30/2023 Telephone [facility] MEDICINE [address] [place] [address] Clare Mo MD [address] [place] [address] Call Back Request Social History Tobacco Use Types Packs/Day Years [...] * Telephone Encounter - Ayla Gongora - 11/30/2023 9:34 AM EDT Tc from pt requesting a call back, stated I need to talk to her No further details provided documented in this encounter Plan of Treatment Upcoming Encounters Date Type Department Care Team (Late st Contact Info) Description 10/19/2024 11:00 AM EST Clinical Support [facility] MED & PEDS [address] [place] [address] Evelina Pimentel RN [address] [place] [address] documented as of this encounter Visit Diagnoses Not on filedocumented in this encounter Care Teams Pyrometallurgical Engineer Relationship Specialty Start Date End Date lCare Mo MD [address] [place] [address] PCP - General Internal Medicine 03/17/17 documented as of this encounter
--- OUTSIDE RECORDS SUMMARY | 2024-10-09 18:24 | XMS_ITS | Encounter Summary ---
Author Organization [employer] Address [address] [facility] 7 [place] [address] Care Team Providers Care Coordinating Producer Name Role Phone Clare Mo MD Primary Care Provider [phone]- [phone] Encounter Details Date Type Department Care Team ([facility] Contact Info) Description 11/29/[address] [facility] MED & PEDS [address] [place], [place] [phone] Clare Mo MD [address] [place] [address] Chronic low back pain with sciatica, sciatica laterality unspecified, unspecified back pain laterality (Primary Dx) Social History Tobacco Use Types Packs/Day Years [...] t he electric, gas, oil or water [employer] threatened to shut off services in your home? No 06/28/2023 Comments Unknown Sex and Gender Information Value Date Recorded Sex Assigned at Female 2022 10:17 AM EDT Legal Sex Female 10:17 AM EDT Gender Identity Female 2022 10:17 AM EDT Sexual Orientation Straight 2022 10 :17 AM EDT documented as of this encounter Plan of Treatment Upcoming Encounters Date Type Department Care Team ([facility] st Contact Info) Description 10/19/2024 11:00 AM EST Clinical Support [facility] MED & PEDS [address] [place] [address] Evelina Pimentel RN [address] [place] [address] documented as of this encounter Visit Diagnoses Diagnosis Chronic low back pain with sciatica, sciatica laterality unspecified, unspecified back pain laterality- Primary documented in this encounter Care Teams Coordinating Producer Relationship Specialty Start Date End Date Clare Mo MD [address] [place] [address] PCP - General Internal Medicine 03/17/17 documented as of this encounter
--- OUTSIDE RECORDS SUMMARY | 2024-10-09 18:24 | XMS_ITS | Encounter Summary ---
Author Organization [employer] Address [address] [place] [address] 7 [place] [address] Care Team Providers Care Professor Of Rhetoric Name Role Phone Clare Mo MD Primary Care Provider [phone]- [phone] Reason for Visit * Reason Onset Date Comments Med Refill 04/02/2023 Medication Question 04/02/2023 Encounter Details Date Type Department Care Team ([facility] st Contact Info) Description 04/02/2023 Telephone [facility] MED & PEDS [address] [place], [place] [phone] Clare Mo MD [address] [place], [place] [phone] Med Refill; Medication Question Social History Tobacco Use Types Packs/Day Years [...] encounter Miscellaneous Notes * Telephone Encounter - Rebeca Kennedy - 04/02/2023 11:51 AM EDT Tc from patient requesting for the rest of her oxycodone 10 mg medication. States she usually gets 90 and only got 56. Please advise. documented in this encounter Plan of Treatment Upcoming Encounters Date Type Department Care Team ([facility] st Contact Info) Description 10/19/2024 11:00 AM EST Clinical Support [facility] MED & PEDS [address] [place] [address] Evelina Pimentel RN [address] [place] [address] documented as of this encounter Visit Diagnoses Not on filedocumented in this encounter Care Teams Professor Of Rhetoric Relationship Specialty Start Date End Date Clare Mo MD [address] [place] [address] PCP - General Internal Medicine 03/17/17 documented as of this encounter
--- OUTSIDE RECORDS SUMMARY | 2024-10-09 18:24 | XMS_ITS | Encounter Summary ---
Author Organization [employer] Address [address] [facility] 7 [place] [address] Care Team Providers Care Data Analysis Assistant Name Role Phone Clare Mo MD Primary Care Provider [phone]- [phone] Reason for Visit * Reason Onset Date Comments Results 04/02/2023 Encounter Details Date Type Department Care Team ([facility] Contact Info) Description 04/02/2023 Telephone [facility]EDS [address] [place] [address] Clare Mo MD [address] [place] [address] Results Social History Tobacco Use Types Packs/Day Years [...] encounter Miscellaneous Notes * Telephone Encounter - Breanne Bray RN - 04/07/2023 11:51 AM EDT T/C returned to pt re lab results request below. Informed all lab results WNL: normal kidney function, normal electrolytes, normal vit D, no anemia, normal, TSH, no signs or infection. Pt reports hadstill hurts. Went on to discuss but the call dropped. Attempted to call back, no answer. * Telephone Encounter - Clare Mo MD - 04/02/2023 4:45 PM EDT Ms Macedo can have her regular dose. Please give a 28 days supply. * Telephone Encounter - Clare Mo MD - 04/02/2023 1:30 PM EDT No we are back to the regular dose. Ms dawson can have a 28 day supply of her regular dose. * Telephone Encounter - Rebeca Kennedy - 04/02/2023 11:54 AM EDT Tc from patient requesting lab test results. documented in this encounter Plan of Treatment Upcoming Encounters Date Type Department Care Team (Late st Contact Info) Description 10/19/2024 11:00 AM EST Clinical Support [facility] MED & PEDS [address] [place] [address] Evelina Pimentel RN [address] [place] [address] documented as of this encounter Visit Diagnoses Diagnosis Chronic midline low back pain with sciatica, sciatica laterality unspecified documented in this encounter Care Teams Data Analysis Assistant Relationship Specialty Start Date End Date Clare Mo MD [address] [place] [address] PCP - General Internal Medicine 03/17/17 documented as of this encounter
--- OUTSIDE RECORDS SUMMARY | 2024-10-09 18:24 | XMS_ITS | Encounter Summary ---
Author Organization [employer] Address [address] [facility] [address] [place] [address] Care Team Providers Care Senior Resident Care Director Name Role Phone Clare Mo MD Primary Care Provider [phone]- [phone] Reason for Visit * Reason Onset Date Comments Med Refill 03/19/2023 Encounter Details Date Type Department Care Team ([facility] Contact Info) Description 03/19/2023 Telephone [facility] MED [facility] PEDS [address] [place] [address] Clare Mo MD [address] [place] [address] Med Refill Social History Tobacco Use Types [...] encounter Miscellaneous Notes * Telephone Encounter - Dania Waldemar - 03/19/2023 12:18 PM EDT Tc from pt requesting medication refill on ALPRAZolam (Xanax) 1 MG tablet. States she is leaving for vacation on 03/24/23 documented in this encounter Plan of Treatment Upcoming Encounters Date Type Department Care Team ([facility] st Contact Info) Description 10/19/2024 11:00 AM EST Clinical Support [facility] MED [facility]S [address] [place] [address] Evelina Pimentel, WILBER [address] [place] [address] documented as of this encounter Visit Diagnoses Not on filedocumented in this encounter Care Teams Senior Resident Care Director Relationship Specialty Start Date End Date Clare Mo MD [address] [place] [address] PCP - General Internal Medicine 03/17/17 documented as of this encounter
--- OUTSIDE RECORDS SUMMARY | 2024-10-09 18:24 | XMS_ITS | Encounter Summary ---
Author Organization [employer] [facility] Address [address] [place] [address] [place] [address] Care Team Providers Care Ruby On Rails Developer Name Role Phone Clare Mo MD Primary Care Provider [phone]- [phone] Encounter Details Date Type Department Care Team (Late st Contact Info) Description 04/20/2023 Orders [address] [facility] MED & PEDS [address] [place] [address] Clare Mo MD [address] [place] [address] Pain in both hands (Primary Dx); Chronic low back pain, unspecified back pain [...] Description 10/19/2024 11:00 AM EST Clinical Support [facility] MED & PEDS [address] [place] [address] Evelina Pimentel RN [address] [place], [place] [id number] documented as of this encounter Visit Diagnoses Diagnosis Pain in both hands- Primary Chronic low back pain, unspecified back pain laterality, unspecified whether sciatica present documented in this encounter Care Teams Ruby On Rails Developer Relationship Specialty Start Date End Date Clare Mo MD [address] [place] [id number] PCP - General Internal Medicine 03/17/17 documented as of this encounter
--- OUTSIDE RECORDS SUMMARY | 2024-10-09 18:24 | XMS_ITS | Encounter Summary ---
Author Organization [facility] Address [address] [place] [address] [place] [address] Care Team Providers Care Industrial Court Magistrate Name Role Phone Clare Mo MD Primary Care Provider [phone]- [phone] Reason for Visit * Reason Comments Med Refill Encounter Details Date Type Department Care Team ([facility] Contact Info) Description 03/09/2023 Refill [facility] MED & PEDS [address] [place] [address] Clare Mo MD [address] [place] [address] Chronic low back pain with sciatica, sciatica [...] Upcoming Encounters Date Type Department Care Team ([facility] Contact Info) Description 10/19/2024 11:00 AM EST Clinical Support [facility] MED & PEDS [address] [place] [address] Evelina Pimentel, WILBER [address] [place] [address] documented as of this encounter Visit Diagnoses Diagnosis Chronic low back pain with sciatica, sciatica laterality unspecified, unspecified back pain laterality Anxiety Anxiety state, unspecified documented in this encounter Care Teams Industrial Court Magistrate Relationship Specialty Start Date End Date Clare Mo MD [address] [place] [address] PCP - General Internal Medicine 03/17/17 documented as of this encounter
--- OUTSIDE RECORDS SUMMARY | 2024-10-09 18:24 | XMS_ITS | Clinical Summary ---
Author Organization [employer] Address [address] [place] [address] 7 [place] [address] Care Team Providers Care Fulfillment Coordinator Name Role Phone Clare Mo MD Primary Care Provider [phone] Allergies Active Allergy Reactions Criticality Noted Date Comments Ibuprofen Dermatitis 03/08/2024 Morphine Rash Low 03/08/2024 Medications * This document contains information received from the source organization and may not represent a complete record from that organization. Acetaminophen 500 MG capsule take 2 capsule by oral route every 8 hours as needed 02/04/20 21 Active albuterol (ProAir HFA) 108 (90 Base) MCG/ACT inhaler inhale 2 puff by inhalation route every 4 - 6 hours as needed 06/17/20 21 Active naloxone (Narcan) 4 mg/0.1 mL nasal spray spray 0.1 milliliter by intranasal route in 1 nostril may repeat dose every 2-3 minutes as needed alternating nostrils with each dose 06/09/20 22 Active ondansetron (Zofran) 4 MG tablet take 2 tablet by oral route 2 times every day 02/04/20 21 Active Misc. Devices (Rollator Ultra-Light) miscIndications :poor balance To use daily 09/08/20 21 Active Misc. Devices (Cane) misc Use 1 by To Assist with ambulation route 04/15/20 21 Active Elastic Bandages & Supports (Elbow Strap Left/Right) miscIndications :Dx:Tennis Elbow To wear daily 04/05/20 20 Active Heating Pads pads To use daily 05/20/20 21 Active Elastic Bandages & Supports (Knee Brace) misc Knee brace large/xlarge To use daily 09/30/19 22 Active Elastic Bandages & Supports (Lumbar Back Brace/Support Pad) miscIndications :Chronic midline low back pain, unspecified whether sciatica present To wear daily as needed. 1 each 10/09/19 23 Active cholecalciferol (Vitamin D-3) 25 MCG (1000 UT) tabletIndicatio ns:Vitamin D deficiency Take 1 tablet (25 mcg) by mouth in the morning. 60 tablet 11 03/26/20 23 Active Diclofenac Sodium 1 % gel To use on the affected area 3 times a day 100 g 2 04/15/20 23 Active Elastic Bandages & Supports (Wrist Brace Deluxe) miscIndications :Pain in both hands Bilateral hand pain. Please provide a brace that can cover the hands as per pt's request. 2 each 05/14/20 23 Active Elastic Bandages & Supports (Wrist Brace Deluxe) miscIndications :Pain in both hands Please provide a brace that can cover the hands as per pt's request. 2 each 05/14/20 23 Active Rhubarb (Estroven Complete) 4 MG tabletIndicatio ns:Hot flashes 1 tab once a day 30 tablet 3 03/08/20 24 Active silver sulfADIAZINE (Silvadene) 1 % creamIndication s:Burn Apply topically 2 times daily. 50 g 04/24/20 24 2024 Active ALPRAZolam (Xanax) 1 MG tabletIndicatio ns:Anxiety TAKE ONE TABLET BY MOUTH EVERY DAY NEEDED FOR ANXIETY FOR UP TO 15 DAYS 25 tablet 09/19/19 25 Active gabapentin (Neurontin) 800 MG tabletIndicatio ns:Chronic pain syndrome TAKE ONE TABLET BY MOUTH THREE TIMES DAILY 90 tablet 5 09/19/19 25 Active oxyCODONE-aceta minophen (Percocet) 10-325 MG tabletIndicatio ns:Chronic low back pain with sciatica, sciatica laterality unspecified, unspecified back pain laterality Take 1 tablet by mouth every 6 (six) hours if needed for severe pain. Do not start before September 22, 2024. 100 tablet 09/22/19 25 Active cyclobenzaprine (Flexeril) 10 MG tablet Take 1 tablet (10 mg) by mouth 2 times daily. 60 tablet 3 09/19/19 25 Active cyclobenzaprine (Flexeril) 10 MG tablet TAKE ONE TABLET BY MOUTH TWICE DAILY 60 tablet 3 04/11/20 24 2024 Discontinued(R eorder (will not trigger notification to Pharmacy)) ALPRAZolam (Xanax) 1 MG tabletIndicatio ns:Anxiety TAKE ONE TABLET BY MOUTH EVERY DAY NEEDED FOR ANXIETY FOR UP TO 15 DAYS Do not start before August 09, 2024. 25 tablet 08/09/20 24 2024 Discontinued gabapentin (Neurontin) 800 MG tabletIndicatio ns:Chronic pain syndrome TAKE ONE TABLET BY MOUTH THREE TIMES DAILY 90 tablet 5 08/16/20 24 2024 Discontinued(R eorder (will not trigger notification to Pharmacy)) oxyCODONE-aceta minophen (Percocet) 10-325 MG tabletIndicatio ns:Chronic low back pain with sciatica, sciatica laterality unspecified, unspecified back pain laterality Take 1 tablet by mouth every 6 (six) hours if needed for severe pain. Do not start before August 31, 2024. 100 tablet 08/31/20 24 2024 Discontinued(R eorder (will not trigger notification to Pharmacy)) Active Problems Problem Noted Date Diagnosed Date Urge incontinence of urine 04/24/2024 Vague bodily discomfort 10/19/2023 Assessment & Plan (10/19/2023 3:22 PM EST): Patient that presented visit with complaints of vague bodily discomfort will be sent for labs for further evaluation; will follow up with results. In addition, patient will be referred to Neurology. Furthermore, patient will be sent for imaging. -Labs: Comp. Metabolic Panel, TSH/FT4. Dizzy spells 10/19/2023 Assessment & Plan (10/19/2023 4:34 PM EST): Patient has compliant of various episodes of feeling dizziness and internal heat and then feeling tired. Unknown etiology, she is on various medications that could interact, along of a documentation a prior hx of seizure disorder, but patient denies any hx of seizures Obesity 10/19/2023 Lump of skin of left upper extremity 08/31/2023 Assessment & Plan (08/31/2023 2:00 PM EST): Likely lymphadenopathy secondary to recent vaccine injection, patient reassured, it was advise ibuprofen PRN Lipoma? If problem persists f/u with PCP Vitamin D deficiency 09/08/2021 Chronic low back pain 02/05/2016 Depressed bipolar I disorder 02/05/2016 Migraine 02/05/2016 Mood disorder 02/05/2016 Panic disorder 02/05/2016 Posttraumatic stress disorder 02/05/2016 Encounters Date Type Department Care Team Description 10/03/2024 Telephone [facility] [address] [place] [address] Akanksha Bunch, [place] 09/29/2024 Orders Only [facility] [address] [place] [address] Clare Mo MD 09/19/2024 Telephone [facility] [address] [place] [address] Clare Mo MD 09/19/2024 Refill [facility] [address] [place] [address] Clare Mo MD Anxiety; Chronic pain syndrome; Chronic low back pain with sciatica, sciatica laterality unspecified, unspecified back pain laterality 09/08/2024 Telephone [facility] [address] [place] [address] Annabella Riggs, RN Results 09/04/2024 Orders Only [facility] [address] [place] [address] Clare Mo MD Right hip pain (Primary Dx); SI joint arthritis (CMS/HCC) 09/04/2024 Telephone [facility] [address] [place] [address] Clare Mo MD call back requested 08/25/2024 Refill [facility] [address] [place] [address] Clare Mo MD Chronic low back pain with sciatica, sciatica laterality unspecified, unspecified back pain laterality 08/14/2024 Refill [facility] [address] [place] [address] Clare Mo MD Chronic pain syndrome 08/07/2024 Refill [facility] [address] [place] [address] Clare Mo MD Chronic low back pain with sciatica, sciatica laterality unspecified, unspecified back pain laterality; Anxiety 08/07/2024 Telephone [facility] [address] [place] [address] Clare Mo MD Med Refill 07/26/2024 2:45 PM EST Clinical Support [facility] [address] [place] [address] Evelina Pimentel RN Chronic left-sided low back pain, unspecified whether sciatica present 07/26/2024 Travel 07/10/2024 Telephone [facility] [address] [place] [address] Clare Mo MD Med Refill from Last 3 Months Immunizations Name Administration Dates Next Due Influenza injectable quadriv alent IIV4 with preservative 06/05/2019,06/22/2018 Influenza injectable quadriv alent preservative free 07/02/2022,06/17/2021 Moderna Covid-19 Vaccine 12+ 02/26/2023, 08/18/2021,02/11/2021,2020 TD (adult), 2 Lf tetanus tox oid, preservative free, adsorbed 06/28/2019,06/27/2019 Tdap 06/22/2018 Social History Tobacco Use Types Packs/Day Years Used Date Smoking Tobacco: Former Cigarettes Tobacco Cessation:Counseling Given: Not Answered Housing Stability Answer Date Recorded What is [...] Orientation Straight 2022 10 :17 AM EDT Last Filed Vital Signs Vital Sign Reading Time Taken Comments Blood Pressure 123/71 06/16/2024 1:20 PM EDT Pulse 88 06/16/2024 1:20 PM EDT Temperature 36.6 ??C (97.9 ??F) 06/16/2024 1:20 PM ED T Respiratory Rate 20 06/16/2024 1:20 PM EDT Oxygen Saturation 96% 06/16/2024 1:20 PM EDT Inhaled Oxygen Concentration - - Weight 84.8 kg (187 lb) 06/16/2024 1:20 PM EDT Height 163 cm (5' 4.17 ) 06/16/2024 1:20 PM EDT Body Mass Index 31.93 06/16/2024 1:20 PM EDT Plan of Treatment Upcoming Encounters Date Type Department Care Team (Late st Contact Info) Description 10/19/2024 11:00 AM EST Clinical Support [facility] [address] [place] [address] Evelina Pimentel, [place] [address] [place] [address] Health Maintenance Due Date Last Done Comments CT Colonography 1978 Colonoscopy 1978 Colorectal Cancer Screening 1978 FIT DNA/Cologuard 1978 FIT 1978 FOBT 1978 HIV Screening 1980 Sigmoidoscopy 1978 Alcohol/Substance Use Screening 1990 Family Planning (PISQ) 1993 Hepatitis C Screening 1996 Hepatitis B Vaccines (1 of 3 - 19+ 3-dose series) 1997 Dental Oral Exam 01/28/2021 07/30/2020 Dental Prophylaxis 02/15/2021 08/16/2020 Dental X-Ray: Bitewings 06/11/2023 06/10/20 22, 09/25/2020, 07/30/2020 Dental X-Ray: Full Mouth 07/31/2023 07/30/2020 HPV/Cotest 10/24/2024 10/24/2019 Depression Screening 03/08/2025 03/08/2024, 03/08/20 24 Mammogram 04/24/2025 04/24/2024, 12/14, 11/21/2019 SDOH Screening 06/02/2025 06/02/2024 Tobacco Screening 06/16/2025 06/16/2024 Cervical Cancer Screening 03/08/2026 Pap Smear 03/08/2026 03/08/2023, 10/24/2019 Lipid Panel 07/04/2026 07/04/2021 Zoster Vaccines (1 of 2) 2028 DTaP/Tdap/Td Vaccines (4 - Td or Tdap) 06/28/2029 06/28/2019, 06/27/2019, 06/27/2019, Additional history exists RSV Patients and Patients Aged 60 years or older (1 - 1-dose 75+ series) 2053 COVID-19 Vaccine Completed 05/12/2024, , 02/26/2023, Additional history exists Influenza Vaccine Completed 05/12/2024, , 06/17/2021, Additional history exists HIB Vaccines Aged Out No longer eligi [...] patient's age to complete this topic Meningococcal Vaccine Aged Out No malick marko eligible based on patient's age to complete this topic Pneumococcal Vaccine: Pediatrics (0 to 5 Years) and At-Risk Patients (6 to 64 Years) Aged Out No longer eligible based on patient's age to complete this topic RSV under 20 months Aged Out No longe r eligible based on patient's age to complete this topic Rotavirus Vaccines Aged Out No longer eligible based on patient's age to complete this topic Procedures Procedure Name Priority Date/Time Associated Diagnosis Comments XR HIP 2 OR 3 VIEWS RIGHT Routine 08/01/2024 12:18 PM EST Bilateral hip pain XR HIP 2 OR 3 VIEWS LEFT Routine 08/01/2024 12:18 PM EST Bilateral hip pain POCT VICTOR MANUEL-14 URINE DRUG SCREEN Routine 07/26/2024 3:07 PM EST Chronic left-sided low back pain, unspecified whether sciatica present BI MAMMOGRAM SCREENING TOMOSYNTHESIS BILATERAL Routine 04/24/2024 2:00 PM EDT PAP SMEAR Routine 03/08/2023 12:18 PM EDT Chronic low back pain with sciatica, sciatica laterality unspecified, unspecified back pain laterality BITEWINGS - 4 RADIOGRAPHIC IMAGES Routine 06/10/2022 12:00 AM EDT LIPID PANEL, STANDARD Routine 07/04/2021 9:32 AM EDT PROPHYLAXIS - ADULT Routine 08/16/2020 1 2:00 AM EST DIAGNOSTIC - DIAGNOSTIC IMAGING - INTRAORAL - COMPREHENSIVE SERIES OF RADIOGRAPHIC IMAGES Routine 07/30/2020 12:00 AM EST COMPREHENSIVE ORAL EVALUATION - NEW OR ESTABLISHED PATIENT Routine 07/30/2020 12:00 AM EST ZZZ HISTORICAL HPV MRNA E6/E7 Routine 10/24/2019 3:31 PM EST from Last 3 Months or Most Recently Relevant to Health Maintenance Results * XR Hip 2 or 3 Views Right (08/01/2024 12:18 PM EST) Anatomical Region Laterality Modality Lower Extremities, Hip Right Radiograp hic Imaging 08/01/2024 12:1 8 PM EST Narrative 09/02/2024 10:46 PM EST ? [facility] ?[address] ?[place] [address] ?XRay Report ? Signed ? Patient: Macedo,May ?MR#: [id number] ? : 1980 ?Acct:[id number] ? Age/Sex: 44 / F ?ADM Date: 08/01/24 ? Loc: HO.XRAY ? Attending Dr: Clare Mo MD ? Ordering Physician: Clare Mo MD ?? Date of Service: 08/01/24 ?? Procedure(s): XR hip RT min 2V ?? Accession Number(s): [id number] ? cc: Clare Mo MD ? EXAMINATION: ?? XR HIP, RIGHT ? CLINICAL INFORMATION: ?? b/l hip pain ? COMPARISON: ?? None available. ? TECHNIQUE: ?? Two views of the right hip. ? FINDINGS: ?? Small 3 mm focus of calcific tendinitis at the anterior margin of the ?? right greater trochanter. No fracture or malalignment. Bone ?? mineralization is normal.] Joint is well preserved. Ymoa-ar-pmlntgsl ?? osteoarthritis in the right SI joint. Phleboliths in the pelvis. ? XR/XR hip RT min 2V ?? IMPRESSION: ?? Calcific tendinitis at the right greater trochanter. No acute osseous ?? findings. Bord-ho-oihpahfa osteoarthritis in the right SI joint. ? Electronically signed by: ??Neptali Loyola MD ??09/02/2024 10:43 PM EST RP ? Dictated By: ?Neptali Loyola MD ? Signed By: ?<Electronically signed by Neptali Loyola MD in OV> ? 09/02/243 ? DD/ 1218 ? TD/TT: 08/01/24 1243 ? [facility] Network Pricing Consultant: RK ? Procedure Note Hong, James - 09/02/[address] [place] [address] XRay Report Signed Patient: May MacedoMR#: [id number] : 1980Acct:[id number] Age/Sex: 44 / FADM Date: 08/01/24 Loc: [facility] Attending Dr: Clare Mo MD Ordering Physician: Clare Mo MD Date of Service: 08/01/24 Procedure(s): XR hip RT min 2V Accession Number(s): [id number] cc: Clare Mo MD EXAMINATION: XR HIP, RIGHT CLINICAL INFORMATION: b/l hip pain COMPARISON: None available. TECHNIQUE: Two views of the right hip. FINDINGS: Small 3 mm focus of calcific tendinitis at the anterior margin of the right greater trochanter. No fracture or malalignment. Bone mineralization is normal.] Joint is well preserved. Bmkv-it-crllsdit osteoarthritis in the right SI joint. Phleboliths in the pelvis. XR/XR hip RT min 2V IMPRESSION: Calcific tendinitis at the right greater trochanter. No acute osseous findings. Fdsi-gd-ickvpqtm osteoarthritis in the right SI joint. Electronically signed by: Neptali Loyola MD 09/02/2024 10:43 PM EST Dictated By: Neptali Loyola MD Signed By: <Electronically signed by Neptali Loyola MD in OV> 09/02/24 2243 DD/ 1218 TD/TT: 08/01/24 1243 Healthcare Network Pricing Consultant: ELIUD us Clare Mo MD IMG XR PROCEDURES Edited Re sult - Final * XR Hip 2 or 3 Views Left (08/01/2024 12:18 PM EST) Anatomical Region Laterality Modality Lower Extremities, Hip Left Radiograp hic Imaging 08/01/2024 12:1 8 PM EST Narrative 09/26/2024 1:22 PM EST ? [facility] ?[address] ?[place] [address] ?XRay Report ? Signed ? Patient: Macedo,May ?MR#: [id number] ? : 1980 ?Acct:[id number] ? Age/Sex: 44 / F ?ADM Date: 08/01/24 ? Loc: HO.XRAY ? Attending Dr: Clare Mo MD ? Ordering Physician: Clare Mo MD ?? Date of Service: 08/01/24 ?? Procedure(s): XR hip LT min 2V ?? Accession Number(s): [id number] ? cc: Clare Mo MD ? EXAMINATION: ?? XR LEFT HIP ? CLINICAL INFORMATION: ?? B/l hip pain. ? COMPARISON: ?? None available ? TECHNIQUE: ?? Two views of the left hip. ? FINDINGS: ?? Mild superolateral joint space narrowing and small marginal osteophytes ?? along the acetabular rim. No fracture or malalignment. ? XR/XR hip LT min 2V ?? IMPRESSION: ?? Mild left hip osteoarthritis. ? Electronically signed by: ??Dani Young MD ??09/26/2024 01:19 PM ?? EST RP ? Dictated By: ?Dani Young MD ? Signed By: ?<Electronically signed by Dani Young MD in OV> ? 09/26/24 1319 ? DD/ 1218 ? TD/TT: 08/01/24 1243 ? Healthcare Network Pricing Consultant: DM ? Procedure Note Hong, Image - 09/26/2024 [place] [address] XRay Report Signed Patient: May MacedoMR#: [id number] : 1980Acct:[id number] Age/Sex: 44 / FADM Date: 08/01/24 Loc: HO.XRAY Attending Dr: Clare Mo MD Ordering Physician: Clare Mo MD Date of Service: 08/01/24 Procedure(s): XR hip LT min 2V Accession Number(s): [id number] cc: Clare Mo MD EXAMINATION: XR LEFT HIP CLINICAL INFORMATION: B/l hip pain. COMPARISON: None available TECHNIQUE: Two views of the left hip. FINDINGS: Mild superolateral joint space narrowing and small marginal osteophytes along the acetabular rim. No fracture or malalignment. XR/XR hip LT min 2V IMPRESSION: Mild left hip osteoarthritis. Electronically signed by: Dani Young MD 09/26/2024 01:19 PM EST RP Dictated By: Dani Young MD Signed By: <Electronically signed by Dani Young MD inOV> 09/26/24 1319 DD/ 1218 TD/TT: 08/01/24 1243 Healthcare Network Pricing Consultant: DM us Clare Mo MD IMG XR PROCEDURES Final Res ult * POCT VICTOR MANUEL-14 Urine Drug Screen (07/26/2024 3:07 PM EST) THC Positive Benzodiazepines Screen, Urine Positive Oxycodone Screen, Urine Positive Urine Urine specimen obtained by clean catch procedure / Unknown 07/26/2024 3:07 PM EST us Clare Mo MD POINT OF CARE TEST ENTER/ED IT ORDERABLES Final Result * BI Mammogram Screening Tomosynthesis Bilateral (04/24/2024 2:00 PM EDT) Anatomical Region Laterality Modality Breast Bilateral Mammography 04/24/2024 2:00 PM EDT Narrative 05/22/2024 4:31 PM EDT ? [facility] [place] ? [address] ?[place] [address] ? Mammography Report ? Signed ? Patient: Macedo Gongora,May ?MR#: [id number] ? : 1980 ?Acct:[id number] ? Age/Sex: 43 / F ?ADM Date: 08/12/24 ? Loc: HO.MAMMO ? Attending Dr: Clare Mo MD ? Ordering Physician: [place] William MD ?Results: 1Negativ ?? e ? Date of Service: 04/24/24 ?Follow Up: 1 Year From Orig ?? inal Mammogram ? Procedure(s): MM tomosynthesis screening BI ?? Accession Number(s): [id number] ? cc: Clare Mo MD; Jeff William MD ? EXAMINATION: ?? MM SCREENING DIGITAL BREAST TOMOSYNTHESIS, BILATERAL ? CLINICAL INFORMATION: ? Screening. Asymptomatic. ? COMPARISON: ?? Mammography: This study is compared with prior exams dating back to ? 2019. ? TECHNIQUE: ?? Digital breast tomosynthesis is performed in both the craniocaudal and ?? mediolateral oblique views along with computer-aided detection (CAD). ? Synthesized 2D images are generated from the tomosynthesis. ? FINDINGS: ?? The breasts are heterogeneously dense, which may obscure small masses ?? (ACR BI-RADS breast composition Category c). ? There are no significant masses, abnormal calcifications, or other ?? abnormalities. ? MM/MM tomosynthesis screening BI ?? IMPRESSION: ?? No mammographic evidence of malignancy. ? ASSESSMENT: ? BI-RADS BI-RADS 1 - Negative ? RECOMMENDATION: ?? Routine annual mammography screening. ? 1 year F/U ? This examination should not preclude the clinical evaluation of a ?? suspicious palpable abnormality. ? This patient's information was entered into a reminder system with a ?? target due date for their next mammogram. ? Electronically signed by: ??Isabel Morgan MD ??05/22/2024 04:29 PM EDT RP ? Dictated By: ?Isabel Morgan MD ? Signed By: ?<Electronically signed by Isabel Morgan MD in OV> ? 05/22/24 1629 ? DD/ 1400 ? TD/TT: 04/24/24 1415 ? Healthcare Network Pricing Consultant: ? Procedure Note Donotuseinterpreter, Image - 05/22/[address] [place] [facility] [address] [place], [place] [address] Mammography Report Signed Patient: May BeckwithMR#: [id number] : 1980Acct:[id number] Age/Sex: 43 / FADM Date: 04/24/24 Loc: HO.MAMMO Attending Dr: Clare Mo MD Ordering Physician: [place] William MDResults: 1Negativ e Date of Service: 04/24/24Follow Up: 1 Year From Orig inal Mammogram Procedure(s): MM tomosynthesis screening BI Accession Number(s): [id number] cc: Clare Mo MD; [place] William MD EXAMINATION: MM SCREENING DIGITAL BREAST TOMOSYNTHESIS, BILATERAL CLINICAL INFORMATION: Screening. Asymptomatic. COMPARISON: Mammography: This study is compared with prior exams dating back to 2019. TECHNIQUE: Digital breast tomosynthesis is performed in both the craniocaudal and mediolateral oblique views along with computer-aided detection (CAD). Synthesized 2D images are generated from the tomosynthesis. FINDINGS: The breasts are heterogeneously dense, which may obscure small masses (ACR BI-RADS breast composition Category c). There are no significant masses, abnormal calcifications, or other abnormalities. MM/MM tomosynthesis screening BI IMPRESSION: No mammographic evidence of malignancy. ASSESSMENT: BI-RADS BI-RADS 1 - Negative RECOMMENDATION: Routine annual mammography screening. 1 year F/U This examination should not preclude the clinical evaluation of a suspicious palpable abnormality. This patient's information was entered into a reminder system with a target due date for their next mammogram. Electronically signed by: Isabel Morgan MD 05/22/2024 04:29 PM EDT RP Dictated By: Isabel Morgan MD Signed By: <Electronically signed by Isabel Morgan MD in OV> 05/22/24 5099 DD/ 1400 TD/TT: 04/24/24 1415 Healthcare Network Pricing Consultant: [facility] External Provider IMG BI PROCEDURES Final Result * Pap Smear (03/08/2023 12:18 PM EDT) 03/08/2023 12:1 8 PM EDT 03/10/2023 8:55 AM EDT [facility] - 03/27/2023 3:23 PM EDT ----- ------- Name: May Beckwith ?Age/Sex: 42/F ? : 1980 Unit#: [id number] ?? Attend Dr: [place] William MD ?Re03/08/23 ?Status: DEP REF ? Location: HO.LNP ?Disch: ? ----- ------- SPEC : [id number] ? RECD: 03/10/23 ? STATUS: ??SOUT ? REQ NUM: [id number] ? BRANDON: 03/08/23 ? SUBM DR: Jeff William MD ? [...] 66, 68) ? HPV testing performed by [facility], [place], [place]. ??See reference laboratory ?? portion of the EMR for entire report. ?Clinical Information LMP: 03/05/23 Previous PAP test: Unknown date/findings ? Material Received ?? ThinPrep-Cervical Copies To: ?? Clare Mo MD ?? [address] ?? [place] [address] ? Jeff William MD ?? [address] [facility] [place] ?? [place] [address] ?? [phone] ----- ------- Signed (signature on file) Alondra A Tyrell 03/27/23 1523 ? ----- ------- ? END OF REPORT ? us [facility] External Provider LAB CYT OLOGY ORDERABLES Final Result [facility] [address] [place] [address] [phone] * LIPID PANEL, STANDARD (07/04/2021 9:32 AM EDT) Chol/HDLC Ratio 2.8 <5.0 (calc) [facility] Cholesterol, Total 162 <200 mg/dL [facility] HDL Cholesterol 57 > OR = 50 mg/dL [facility] LDL Cholesterol 84 mg/dL (calc) [facility] Comment: Reference range: <100 ?? Desirable range <100 mg/dL for primary prevention; ?? <70 mg/dL for patients with CHD or diabetic patients ?? with > or = 2 CHD risk factors. ?? LDL-C is now calculated using the Fabricio ?? calculation, which is a validated novel method providing ?? better accuracy than the Friedewald equation in the ?? estimation of LDL-C. ?? Panda SEAMAN et al. NALLELY. 2013;310(19): 1825-0733 ?? (http://education.[employer] | [employer]/faq/QHJ761) Non-HDL Cholesterol 105 <130 mg/dL (calc) [facility] Comment: For patients with diabetes plus 1 major ASCVD risk ?? factor, treating to a non-HDL-C goal of <100 mg/dL ?? (LDL-C of <70 mg/dL) is considered a therapeutic ?? option. Triglycerides 115 <150 mg/dL [facility] 07/04/2021 9:32 AM EDT Clare Mo MD LAB BLOOD ORDERABLES Final Result [facility] [address] * HPV mRNA E6/E7 (10/24/2019 3:31 PM EST) HPV mRNA E6/E7 Not Detected NOT DETECTED [facility] Comment: This test was performed using the APTIMA(R) HPV Assay ([employer] This assay detects E6/E7 viral messenger RNA (mRNA) from 14 high-risk HPV types (16,18,31,33,35,39,45,51, 52,56,58,59,66,68). For additional information please refer to: http://education.[employer]/faq/BLG352p1 (This link is being provided for informational/ educational purposes only.) The analytical performance characteristics of this assay have been determined by [employer] [place], [place]. The modifications have not been cleared or approved by the FDA. This assay has been validated pursuant to the CLIA regulations and is used for clinical purposes. Test Performed by [facility], [facility], [address] [place] [address] Jalen Hart M.D., Ph.D., Director of Laboratories , [facility] [id number] Please note: ??Effective 05/25/2016, HPV testing will be performed using [employer]'s APTIMA test which targets mRNA. Detecting mRNA instead of DNA, as in older methods, offers significant improvements in specificity. 10/24/2019 3:31 PM EST Camille Ash CNM HISTORICAL/NON ORDERABLE LABS Final Result [facility] Anywhere [address] from Last 3 Months or Most Recently Relevant to Health [place] [address] MEDICARE [facility] [address] [place] STAND ADULT SHORTY Hines20 Care Teams Fulfillment Coordinator Relationship Specialty Start Date End Date Clare Mo MD [address] [place] [address] SHORTY Hines13 PCP - General Internal Medicine 03/17/17"
--- OUTSIDE RECORDS SUMMARY | 2024-10-09 18:24 | XMS_ITS | Encounter Summary ---
Author Organization [employer] Address [address] [place] [address] [place] [address] Care Team Providers Care Manager Retail Store Name Role Phone Clare Mo MD Primary Care Provider [phone] Reason for Referral * Consultation (Urgent) - Closed Specialty Diagnoses / Procedures Referred By Contnola t Referred To Contact Neurosurgery Diagnoses Lumbar nerve root impingement Clare Mo MD [address] [place] [address] Phone: tel: fax: Keli Suggs [address] [place] [address], [address] [place], [place] Phone: tel: fax: Referral ID Status Reason Start Date Expiration Date V isits Requested Visits Authorized [id number] Closed Specialty Services Required 01/11/2024 01/10/2025 1 1 Encounter Details Date Type Department Care Team (Late st Contact Info) Description 01/11/2024 Orders Only [facility] MED & PEDS [address] [place] [address] Clare Mo MD [address] [place] [address] Lumbar nerve root impingement (Primary Dx); Chronic low back pain with sciatica, sciatica [...] Upcoming Encounters Date Type Department Care Team ([facility] Contact Info) Description 10/19/2024 11:00 AM EST Clinical Support [facility] MED & PEDS [address] [place] [address] Evelina Pimentel RN [address] [place] [address] Scheduled Referrals Name Type Priority Associated Diagnoses Orde r Schedule Referral to Neurosurgery Outpatient Referral Urgent Lumbar nerve root impingement Expected: 01/11/2024 (Approximate), Expires: 01/10/2025 documented as of this encounter Visit Diagnoses Diagnosis Lumbar nerve root impingement- Primary Thoracic or lumbosacral neuritis or radiculitis, unspecified Chronic low back pain with sciatica, sciatica laterality unspecified, unspecified back pain laterality Anxiety Anxiety state, unspecified documented in this encounter Care Teams Manager Retail Store Relationship Specialty Start Date End Date Clare Mo MD [address] [place] [address] PCP - General Internal Medicine 03/17/17 documented as of this encounter
--- OUTSIDE RECORDS SUMMARY | 2024-10-09 18:24 | XMS_ITS | Encounter Summary ---
Author Organization [facility] Address [address] [place] [address] [place] [address] Care Team Providers Care Inventory Clerk Name Role Phone Clare Mo MD Primary Care Provider [phone]- [phone] Reason for Visit * Reason Comments Med Refill Encounter Details Date Type Department Care Team ([facility] Contact Info) Description 02/11/2023 Refill [facility] MED & PEDS [address] [place] [address] Clare Mo MD 505 [place] [address] Chronic low back pain with sciatica, sciatica [...] suspected to have Coronavirus/COVID-19? No / Unsure 02/09/2023 10:00 AM EDT documented as of this encounter Plan of Treatment Upcoming Encounters Date Type Department Care Team ([facility] Contact Info) Description 10/19/2024 11:00 AM EST Clinical Support [facility] CHC MED & PEDS [address] [place] [address] Evelina Pimentel, WILBER [address] [place] [address] documented as of this encounter Visit Diagnoses Diagnosis Chronic low back pain with sciatica, sciatica laterality unspecified, unspecified back pain laterality documented in this encounter Care Teams Inventory Clerk Relationship Specialty Start Date End Date Clare Mo MD [address] [place] [address] PCP - General Internal Medicine 03/17/17 documented as of this encounter
--- OUTSIDE RECORDS SUMMARY | 2024-10-09 18:24 | XMS_ITS | Encounter Summary ---
Author Organization [employer] Address [address] [facility] 7t [place] [address] Care Team Providers Care Mail Carrier Technician Name Role Phone Clare Mo MD Primary Care Provider [phone]- [phone] Encounter Details Date Type Department Care Team ([facility] st Contact Info) Description 06/20/2024 Orders Only [facility] [address] [place] [address] Clare Mo MD 505 [place] [address] Chronic low back pain with sciatica, sciatica laterality unspecified, unspecified back pain laterality; Anxiety Social History Tobacco Use Types Packs/Day Years Used Date Smoking Tobacco: Former Cigarettes Housing Stability Answer Date Recorded What is your housing situation today? I have rosemary nadia 06/02/[address] you li [...] the past 12 months, has t he [employer], gas, oil or water company threatened to [...] 10/19/2024 11:00 AM EST Clinical Support [facility] MED & PEDS [address] [place] [address] Evelina Pimentel, WILBER [address] [place] [address] documented as of this encounter Visit Diagnoses Diagnosis Chronic low back pain with sciatica, sciatica laterality unspecified, unspecified back pain laterality Anxiety Anxiety state, unspecified documented in this encounter Care Teams Mail Carrier Technician Relationship Specialty Start Date End Date Clare Mo MD [address] [place] [address] PCP - General Internal Medicine 03/17/17 documented as of this encounter
--- OUTSIDE RECORDS SUMMARY | 2024-10-09 18:24 | XMS_ITS | Encounter Summary ---
Author Organization [employer] Address [address] [facility] 7 [place] [address] Care Team Providers Care Shoe Stitcher Name Role Phone Clare Mo MD Primary Care Provider [phone]- [phone] Reason for Visit * Reason Onset Date Comments treatment 09/22/2022 Patient called i n looking to have filling in front teeth done. Patient came in 05/2022 and was told she needed a cleaning and exam for diagnosis. She was only interested in the filling. [employer] notes states that patient left the office without cleaning. Patient understands that appt scheduled 09/24/2022 is for cleaning and exam as Has to diagnose and she will come back for appt needed to restore tooth. Patient seemed to understand and is willing Encounter Details Date Type Department Care Team ([facility] Contact Info) Description 09/22/2022 Telephone [facility] [address] [place] [address] Shukri, Seema [address] [place], [place] [id number] treatment (Patient called in looking to have filling in front teeth done. Patient came in 05/2022 and was told she needed a cleaning and exam for diagnosis. She was only interested in the filling. [employer] notes states that patient left the office without cleaning. Patient understands that appt scheduled 09/24/2022 is for cleaning and exam as Has to diagnose and she will come back for appt needed to restore tooth. Patient seemed to understand and is willing ) Social History Tobacco Use Types Packs/Day Years [...] suspected to have Coronavirus/COVID-19? No / Unsure 09/02/2022 9:31 AM EST documented as of this encounter Miscellaneous Notes * Telephone Encounter - Sari Lorenzo - 09/22/2022 1:22 PM EST Patient called in looking to have filling in front teeth done. Patient came in 05/2022 and was toldshe needed a cleaning and exam for diagnosis. She was only interested in the filling. [employer] notes states that patient left the office without cleaning. Patient understands that appt scheduled 09/24/2022 is for cleaning and exam as Has to diagnose and she will come back for appt needed to restore tooth. Patient seemed to understand and is willing documented in this encounter Plan of Treatment Upcoming Encounters Date Type Department Care Team (Late st Contact Info) Description 10/19/2024 11:00 AM EST Clinical Support [facility] MED & PEDS [address] [place] [address] Evelina Pimentel, WILBER [address] [place] [address] documented as of this encounter Visit Diagnoses Not on filedocumented in this encounter Care Teams Shoe Stitcher Relationship Specialty Start Date End Date Clare Mo MD 505 [place] [address] PCP - General Internal Medicine 03/17/17 documented as of this encounter
--- OUTSIDE RECORDS SUMMARY | 2024-10-09 18:24 | XMS_ITS | Encounter Summary ---
Author Organization [employer] Address [address] [facility] 7 [place] [address] Care Team Providers Care Carcass Splitter Name Role Phone Clare Mo MD Primary Care Provider [phone]- [phone] Reason for Visit * Reason Onset Date Comments Call Back Request 01/06/2024 Encounter Details Date Type Department Care Team ([facility] Contact Info) Description 01/06/2024 Telephone [facility] CHC MED & PEDS [address] [place] [address] Clare Mo MD [address] [place] [address] Call Back Request Social History Tobacco Use [...] * Telephone Encounter - Dania Waldemar - 01/06/2024 1:01 PM EDT Tc from pt requesting to speak directly with you in regards to ER visit yesterday. States needs a call back as soon as possible. documented in this encounter Plan of Treatment Upcoming Encounters Date Type Department Care Team ([facility] st Contact Info) Description 10/19/2024 11:00 AM EST Clinical Support [facility] CH[facility] MED & PEDS [address] [place] [address] Evelina Pimentel, WILBER [address] [place] [address] documented as of this encounter Visit Diagnoses Not on filedocumented in this encounter Care Teams Carcass Splitter Relationship Specialty Start Date End Date Clare Mo MD [address] [place] [address] PCP - General Internal Medicine 03/17/17 documented as of this encounter
--- OUTSIDE RECORDS SUMMARY | 2024-10-09 18:24 | XMS_ITS | Encounter Summary ---
Author Organization [employer] Address [address] [place] [address] Care Team Providers Care Ostomy Rn Name Role Phone Clare Mo MD Primary Care Provider [phone] [phone] Reason for Referral * Consultation (Routine) - Closed Specialty Diagnoses / Procedures Referred By Marylou camp Referred To Contact Orthopaedics / Orthopaedic Surgery Diagnoses Left hip pain Juan J Hodges PA 175 [facility] [address] [place] [address] Alda Rivero MD [address] [address] Referral ID Status Reason Start Date Expiration Date V isits Requested Visits Authorized [id number] Closed Specialty Services Required 09/19/2024 09/19/2025 1 1 Reason for Visit * Reason Comments Follow-up Increased pain Encounter Details Date Type Department Care Team (Late st Contact Info) Description 09/19/2024 2:30 PM EST Office Visit Neurosurgery [facility] 175 [facility] [place] [facility] [address] [place] [id number] Juan J Hodges PA 175 [facility] [address] [place] [address] Left hip pain (Primary Dx); Cervical spondylosis Social History Tobacco Use Types Packs/Day Years Used Date Smoking Tobacco: Former Smokeless Tobacco: Never Tobacco Cessation:Counseling Given: Not Answered Sex and Gender Information Value Date Recorded Sex Assigned at Not on file Gender Identity Not on file Sexual Orientation Not on file Job Start Date Occupation Industry Not on file Not on file Not on file documented as of this encounter Last Filed Vital Signs Vital Sign Reading Time Taken Comments Blood Pressure - - Pulse - - Temperature - - Respiratory Rate - - Oxygen Saturation - - Inhaled Oxygen Concentration - - Weight 85.7 kg (189 lb) 09/19/2024 2:24 PM EST Height 172.7 cm (5' 8 ) 09/19/2024 2:24 PM EST Body Mass Index 28.74 09/19/2024 2:24 PM EST documented in this encounter Progress Notes * GANGA Leblanc - 09/19/2024 4:16 PM ESTAssociated Problem(s): Left hip pain Ms. Macedo describes significant pain at the left hip. She had pain with hip mechanical testing on the left hand side. She was tender at the greater trochanter. She had x-rays of the hip performed at [facility] on 08/01/24. They revealed calcific tendinitis at the right greater trochanter. She asked for referral to orthopedics to have her hip evaluated and I will supply that. * GANGA Leblanc - 09/19/2024 4:14 PM ESTAssociated Problem(s): Cervical spondylosis Ms. Macedo continues to describe neck pain with radiation to her interscapular region and both arms. An MRI of the cervical spine from January of this year at [facility] veal degenerative changesmost significant at C5-6 and to a lesser degree at C4-5 and C6-7. An EMG and nerve conduction studyperformed recently revealed borderline left median neuropathy at the wrist but no cervical radiculopathy. Told the patient I would review the films and her story with Dr. Suggs. At this point he asked for a prescription for a cervical support pillow and I did supply that. * GANGA Leblanc - 09/19/2024 2:30 PM EST NEUROSURGERY OFFICE VISIT Date of Visit: 09/20/2024 Referring Physician: No ref. provider found Primary Care Physician: Clare Mo MD RE: May Macedo : 1980 Chief Complaint Patient presents with Follow-up Increased pain Dear No ref. provider found Ms. Macedo was seen in our office today. She continues to suffer with neck pain and radiation to the interscapular region and both arms. She has numbness and tingling in bilateral upper extremities. She also notes pain in the low back with radiation to the left buttock and on the right side all the way to the posterior thigh. She also has a lot of pain in the left hip. Past Medical History: Diagnosis Date Anxiety and depression DX:Anxiety and depression Blurred vision DX:Blurred vision Breast pain DX:Breast pain; COMMENT: chronic; infreq left breast discharge Change in weight DX:Change in weight Difficulty concentrating DX:Difficulty concentrating History of fainting 2023 DX:History of fainting; COMMENT: low BP Loss of sensation DX:Loss of sensation Memory difficulties DX:Memory difficulties Migraine DX:Migraine Rheumatoid arthritis (CMS/HCC) DX:Rheumatoid arthritis (HCC) Ringing in ears DX:Ringing in ears Past Surgical History: Procedure Laterality Date APPENDECTOMY N/A HISTORICAL APPENDECTOMY BACK SURGERY 02/15/2024 Left L4-5 MIS discectomy, Dr. Suggs NECK SURGERY 08/04/2021 s/p left C7-T1 discectomy, Dr. Suggs OTHER SURGICAL HISTORY N/A Cholecystectomy TUBAL LIGATION N/A with subsequent reversal in 2018, ectopic in 2019 No Known Allergies Current Outpatient Medications Medication Instructions ALPRAZolam (XANAX) 1 mg, oral, Daily PRN, for anxiety cyclobenzaprine (FLEXERIL) 10 mg tablet Take 1 Tablet by mouth 3 times daily as needed. gabapentin (NEURONTIN) 800 mg tablet Take 1 Tablet by mouth 3 times daily. ibuprofen (ADVIL,MOTRIN) 800 mg tablet TAKE 1 TABLET EVERY 8 HOURS FOR PAIN oxyCODONE (ROXICODONE) 10 mg immediate release tablet Take by mouth. oxyCODONE-acetaminophen (PERCOCET) 10-325 mg per tablet 1 tablet, oral, Every 6 hours PRN Social History Tobacco Use Smoking status: Former Smokeless tobacco: Never Social History Social History Narrative Not on file No family history on file. Physical Exam On physical examination, she was companied by her significant other. She is awake and alert and oriented. Speech was clear and fluent. Respirations were unlabored. Heart has a regular rate. She expressed pain with any effort for strength testing in the upper and lower extremities. Despite that, shewas able to demonstrate good strength in all major muscle groups. Hip mechanical testing was negative on the right and positive on the left. She had some tenderness with palpation of the left greatertrochanter. She ambulates with the aid of a wheeled walker. Imaging Diagnostic studies include an MRI of the cervical spine from [facility] dated February 01, 2024. This showed multilevel degenerative changes most significant at C5-6 where there was effacement of the anterior subarachnoid space and possible mild cord compression. There were more mild changes at C4-5 and C6-7. An MRI of the lumbar spine was obtained on August 08, 2024 also at [facility]. This did reveal mild degenerative changes including a small left paracentral L2-3 disc bulge without nerve compression. Assessment/Plan Problem List Items Addressed This Visit Cervical spondylosis Ms. Macedo continues to describe neck pain with radiation to her interscapular region and both arms. An MRI of the cervical spine from January of this year at [facility] veal degenerative changesmost significant at C5-6 and to a lesser degree at C4-5 and C6-7. An EMG and nerve conduction studyperformed recently revealed borderline left median neuropathy at the wrist but no cervical radiculopathy. Told the patient I would review the films and her story with Dr. Suggs. At this point he asked for a prescription for a cervical support pillow and I did supply that. Left hip pain - Primary Ms. Macedo describes significant pain at the left hip. She had pain with hip mechanical testing on the left hand side. She was tender at the greater trochanter. She had x-rays of the hip performed at [facility] on 08/01/24. They revealed calcific tendinitis at the right greater trochanter. She asked for referral to orthopedics to have her hip evaluated and I will supply that. Relevant Orders Ambulatory referral to Orthopedic Surgery Thank you for allowing us to care for your patient. GANGA Leblanc on 09/20/2024 at 10:07 AM EST CC: No ref. provider found Clare Mo MD [facility] Neurosurgical [place] documented in this encounter Plan of Treatment Upcoming Encounters Date Type Department Care Team (Late st Contact Info) Description 10/17/2024 2:00 PM EST Office Visit Neurosurgery [place] [facility] 175 [facility] [address] [place] [address] Keli Suggs MD 175 [place] [address] Scheduled Referrals Name Type Priority Associated Diagnoses Order Schedule Ambulatory referral to Orthopedic Surgery Outpatient Referral Routine Left hip pain 1 Occurrences starting 09/19/2024 until 09/19/2025 documented as of this encounter Visit Diagnoses Diagnosis Left hip pain- Primary Pain in joint, pelvic region and thigh Cervical spondylosis Cervical spondylosis without myelopathy documented in this encounter Historical Medications * This list may reflect changes made after this encounter. Medication Sig Dispensed Refills Start Date End Date ibuprofen (ADVIL,MOTRIN) 800 mg tablet TAKE 1 TABLET EVERY 8 HOURS FOR PAIN 09/04/2024 added in this encounter Care Teams Ostomy Rn Relationship Specialty Start Date End Date Clare Mo MD [address] [place] [address] PCP - General 01/11/24 documented as of this encounter
--- OUTSIDE RECORDS SUMMARY | 2024-10-09 18:24 | XMS_ITS | Encounter Summary ---
Author Organization [employer] Address [address] [place] [address] [place] [address] Care Team Providers Care Manager Community Name Role Phone Clare Mo MD Primary Care Provider [phone]- [phone] Reason for Referral * Consultation (Routine) - Closed Specialty Diagnoses / Procedures Referred By Contac t Referred To Contact Nutrition Diagnoses Obesity, unspecified classification, unspecified obesity type, unspecified whether serious comorbidity present Clare Mo MD [address] [place] [address] Phone: tel: fax: Referral ID Status Reason Start Date Expiration Date V isits Requested Visits Authorized [id number] Closed Consult and Treat 05/19/2024 05/19/2025 1 1 Encounter Details Date Type Department Care Team ([facility] st Contact Info) Description 05/19/2024 Orders Only [facility] CH[facility] MED & PEDS [address] [place] [address] Clare Mo MD [address] [place] [address] Obesity, unspecified classification, unspecified obesity type, unspecified whether serious comorbidity present (Primary Dx) Social History Tobacco Use Types [...] Description 10/19/2024 11:00 AM EST Clinical Support [facility] MED & PEDS [address] [place] [address] Evelina Pimentel, RN [address] [place] [address] Scheduled Referrals Name Type Priority Associated Diagnoses Orde r Schedule Referral to Nutrition Therapy Outpatient Referral Routine Obesity, unspecified classification, unspecified obesity type, unspecified whether serious comorbidity present Expected: 05/19/2024 (Approximate), Expires: 05/19/2025 documented as of this encounter Visit Diagnoses Diagnosis Obesity, unspecified classification, unspecified obesity type, unspecified whether serious comorbidity present- Primary documented in this encounter Care Teams Manager Community Relationship Specialty Start Date End Date Clare Mo MD [address] [place] [address] PCP - General Internal Medicine 03/17/17 documented as of this encounter
--- OUTSIDE RECORDS SUMMARY | 2024-10-09 18:24 | XMS_ITS | Encounter Summary ---
Author Organization [employer] Address [address] [facility] 7 [place] [address] Care Team Providers Care Costuming Supervisor Name Role Phone Clare Mo MD Primary Care Provider [phone]- [phone] Reason for Visit * Reason Comments Med Refill Encounter Details Date Type Department Care Team ([facility] st Contact Info) Description 10/11/2023 Refill [facility] [address] [place] [address] Clare Mo MD [address] [place], [place] [id number] Chronic low back pain, unspecified back pain laterality, unspecified whether sciatica present Social History Tobacco Use Types Packs/Day Years Used Date Smoking Tobacco: Former Cigarettes Housing Stability Answer Date Recorded What is your housing situation today? I have rosemaryindy zuniga 06/28/[address] you [...] t he electric, gas, oil or water [email or web address] threatened to shut off services in your home? No 06/28/2023 Comments Unknown Sex and Gender Information Value Date Recorded Sex Assigned at Female 2022 10:17 AM EDT Legal Sex Female 10:17 AM EDT Gender Identity Female 2022 10:17 AM EDT Sexual Orientation Straight 2022 10 :17 AM EDT documented as of this encounter Plan of Treatment Upcoming Encounters Date Type Department Care Team ([facility] st Contact Info) Description 10/19/2024 11:00 AM EST Clinical Support [facility] MED & PEDS [address] [place] [address] Evelina Pimentel RN [address] [place] [address] documented as of this encounter Visit Diagnoses Diagnosis Chronic low back pain, unspecified back pain laterality, unspecified whether sciatica present documented in this encounter Care Teams Costuming Supervisor Relationship Specialty Start Date End Date Clare Mo MD [address] [place] [address] PCP - General Internal Medicine 03/17/17 documented as of this encounter
--- OUTSIDE RECORDS SUMMARY | 2024-10-09 18:24 | XMS_ITS | Encounter Summary ---
Author Organization [facility] Address [address] [place] [address] 7 [place] [address] Care Team Providers Care Medical Office Manager Name Role Phone Clare Mo MD Primary Care Provider +1- [phone] Encounter Details Date Type Department Care Team ([facility] Contact Info) Description 03/03/2023 Abstract [facility] MED & PEDS [address] [place] [address] Kelsea Talley MA Social History Tobacco Use [...] Upcoming Encounters Date Type Department Care Team ([facility] Contact Info) Description 10/19/2024 11:00 AM EST Clinical Support [facility] MED & PEDS [address] [place] [address] Evelina Pimentel, WILBER 505 [place] [address] documented as of this encounter Visit Diagnoses Not on filedocumented in this encounter Care Teams Medical Office Manager Relationship Specialty Start Date End Date Clare Mo MD [address] [place] [address] PCP - General Internal Medicine 03/17/17 documented as of this encounter
--- OUTSIDE RECORDS SUMMARY | 2024-10-09 18:24 | XMS_ITS | Encounter Summary ---
Author Organization [employer] Address 75 [facility] 7 [place] [address] Care Team Providers Care Finish Machine Tender Name Role Phone Clare Mo MD Primary Care Provider +1- [phone] Reason for Visit * Reason Onset Date Comments Medication Question 11/29/2023 Encounter Details Date Type Department Care Team ([facility] Contact Info) Description 11/29/2023 Telephone [facility] MEDICINE 230 [place] [address] Clare Mo MD 505 [place], [place] [phone] Medication Question Social History Tobacco Use Types [...] Miscellaneous Notes * Telephone Encounter - Cristobal Michael - 11/29/2023 9:47 AM EDT Tc from pt requesting call back from nurse to discuss dosage in crease in medication. No further information was provided. Please contact pt at [phone]. documented in this encounter Plan of Treatment Upcoming Encounters Date Type Department Care Team ([facility] st Contact Info) Description 10/19/2024 11:00 AM EST Clinical Support [facility] MED & PEDS 505 [place] [address] Evelina Pimentel, WILBER 505 [place] [address] documented as of this encounter Visit Diagnoses Not on filedocumented in this encounter Care Teams Finish Machine Tender Relationship Specialty Start Date End Date Clare Mo MD 505 [place] [address] PCP - General Internal Medicine 03/17/17 documented as of this encounter
--- OUTSIDE RECORDS SUMMARY | 2024-10-09 18:24 | XMS_ITS | Encounter Summary ---
Author Organization [employer] Address [address] [place] [address] [address] [place] [address] Care Team Providers Care Manager Of Recruiting Name Role Phone Clare Mo MD Primary Care Provider +1- [phone] Reason for Visit * Reason Onset Date Comments Medication Question 03/19/2023 Encounter Details Date Type Department Care Team ([facility] Contact Info) Description 03/19/2023 Telephone [facility] CHC MED & PEDS 505 [place] [address] Clare Mo MD 505 [place] [address] Medication Question Social History Tobacco Use Types [...] encounter Miscellaneous Notes * Telephone Encounter - Kody De Paz - 03/23/2023 9:53 AM EDT Tc from pt returning call from message above. * Telephone Encounter - Uyen Landon - 03/23/2023 8:36 AM EDT Tc from pt requesting status on oxycodone increase, pt requested to speak to nurse teacher advisor, Clothing Consultant advice to return call after 9:30 where she can be connected to a financial systems manager or nurse, pt agreed to plan. * Telephone Encounter - Dania Medeiros - 03/19/2023 12:16 PM EDT Tc from pt wants to know if PCP can up the dosage for oxyCODONE-acetaminophen (Percocet) 7.5-325 MGtablet documented in this encounter Plan of Treatment Upcoming Encounters Date Type Department Care Team (Late st Contact Info) Description 10/19/2024 11:00 AM EST Clinical Support [facility] MED & PEDS 505 [place] [address] Evelina Pimentel, RN 505 [place] [address] documented as of this encounter Visit Diagnoses Not on filedocumented in this encounter Care Teams Manager Of Recruiting Relationship Specialty Start Date End Date Clare Mo MD 505 [place] [address] PCP - General Internal Medicine 03/17/17 documented as of this encounter
--- OUTSIDE RECORDS SUMMARY | 2024-10-09 18:24 | XMS_ITS | Encounter Summary ---
Author Organization [employer] Address 75 [facility] 7 [place] [address] Care Team Providers Care Training And Development Head Name Role Phone Clare Mo MD Primary Care Provider +1- [phone] Reason for Visit * Reason Onset Date Comments Med Refill 05/05/2024 Encounter Details Date Type Department Care Team ([facility] st Contact Info) Description 05/05/[address] [facility] MEDICINE 230 [place] [address] Clare Mo MD 505 [place] [address] Med Refill Social History Tobacco Use Types [...] * Telephone Encounter - Letitia Dang - 05/05/2024 10:59 AM EDT Tc from pt requesting a refill for oxyCODONE-acetaminophen (Percocet) 10-325 MG tablet and ALPRAZolam (Xanax) 1 MG tablet documented in this encounter Plan of Treatment Upcoming Encounters Date Type Department Care Team (Late st Contact Info) Description 10/19/2024 11:00 AM EST Clinical Support [facility] CHC MED & PEDS 505 [place] [address] Evelina Pimentel RN 505 [place] [address] documented as of this encounter Visit Diagnoses Not on filedocumented in this encounter Care Teams Training And Development Head Relationship Specialty Start Date End Date Clare Mo MD 505 [place] [address] PCP - General Internal Medicine 03/17/17 documented as of this encounter
--- OUTSIDE RECORDS SUMMARY | 2024-10-09 18:24 | XMS_ITS | Encounter Summary ---
Author Organization [employer] Address 75 [facility] 7 [place] [address] Care Team Providers Care Tax Associate Name Role Phone Clare Mo MD Primary Care Provider +1- [phone] Reason for Visit * Reason Onset Date Comments c/b requested 11/29/2023 Encounter Details Date Type Department Care Team ([facility] Contact Info) Description 11/29/2023 Telephone [facility] MEDICINE 230 [place] [address] Clare Mo MD 505 [place], [place] [phone] c/b requested Social History Tobacco Use Types Packs/Day [...] Telephone Encounter - Evy Guadarrama RN - 11/29/2023 1:12 PM EDT TC returned to pt- she asked that this health technical writer explain to Dr Mo that she is in more pain. She states her left hip feels like it is being pulled away from her leg. The pain is a throbbing steady pain with on and off sharp shooting pains. This began last . She states her 7.5 mg oxycodoneis not enough to help and she knows she cannot take 2 and she said that is too much for her. She isasking for the 10mg to be sent to her pharmacy. Pt advised this message would be sent to him for review. Pt agrees to plan. * Telephone Encounter - Letitia Dang - 11/29/2023 12:27 PM EDT Tc from pt requesting to speak directly to room manager, no details provided health technical writer attempted to get a hold of RN however pt disconnected call. Please contact at [phone] documented in this encounter Plan of Treatment Upcoming Encounters Date Type Department Care Team ([facility] st Contact Info) Description 10/19/2024 11:00 AM EST Clinical Support [facility] MED & PEDS 505 [place] [address] Evelina Pimentel, RN 505 [place] [address] documented as of this encounter Visit Diagnoses Not on filedocumented in this encounter Care Teams Tax Associate Relationship Specialty Start Date End Date Clare Mo MD 505 [place] [address] PCP - General Internal Medicine 03/17/17 documented as of this encounter
--- OUTSIDE RECORDS SUMMARY | 2024-10-09 18:24 | XMS_ITS | Encounter Summary ---
Author Organization [employer] Address [address] [place] [address] [place] [address] Care Team Providers Care Manufacturing Coordinator Name Role Phone Clare oM MD Primary Care Provider +1- [phone] Reason for Visit * Reason Onset Date Comments Med Refill 03/09/2023 Encounter Details Date Type Department Care Team ([facility] Contact Info) Description 03/09/2023 Telephone [facility] CHC MED & PEDS [address] [place] [address] Clare Mo MD 505 [place] [address] Med Refill Social History Tobacco Use Types [...] Telephone Encounter - Kody De Paz - 03/09/2023 10:47 AM EDT Tc from pt requesting med refill on oxyCODONE-acetaminophen (Percocet) 7.5-325 MG tablet ALPRAZolam (Xanax) 1 MG tablet Please sent to [facility] [place], [place] - [address] [facility] documented in this encounter Plan of Treatment Upcoming Encounters Date Type Department Care Team ([facility] st Contact Info) Description 10/19/2024 11:00 AM EST Clinical Support [facility] MED & PEDS [address] [place] [address] Evelina Pimentel, WILBER 505 [place] [address] documented as of this encounter Visit Diagnoses Not on filedocumented in this encounter Care Teams Manufacturing Coordinator Relationship Specialty Start Date End Date Clare Mo MD 505 [place] [address] PCP - General Internal Medicine 03/17/17 documented as of this encounter
--- OUTSIDE RECORDS SUMMARY | 2024-10-09 18:24 | XMS_ITS | Encounter Summary ---
Author Organization [employer] Address 75 [facility] 7 [place] [address] Care Team Providers Care Powderer Name Role Phone Clare Mo MD Primary Care Provider +1- [phone] Reason for Visit * Reason Onset Date Comments Medication Question 01/11/2024 Encounter Details Date Type Department Care Team ([facility] Contact Info) Description 01/11/2024 Telephone [facility] MEDICINE 230 [place] [address] Clare Mo MD 505 [place], [place] [phone] Medication Question Social History Tobacco Use Types [...] encounter Miscellaneous Notes * Telephone Encounter - Liliam Bolivar RN - 01/11/2024 2:28 PM EDT Returned call to pt regarding message below. Pt verbalized understanding and agrees with plan. * Telephone Encounter - Letitia Dang - 01/11/2024 10:38 AM EDT Tc from pt requesting a new script for prednisone, states discussed with PCP during last visit. Please contact at [phone] documented in this encounter Plan of Treatment Upcoming Encounters Date Type Department Care Team ([facility] st Contact Info) Description 10/19/2024 11:00 AM EST Clinical Support [facility] CHC MED & PEDS 505 [place] [address] Evelina Pimentel, WILBER 505 [place] [address] documented as of this encounter Visit Diagnoses Not on filedocumented in this encounter Care Teams Powderer Relationship Specialty Start Date End Date Clare Mo MD 505 [place] [address] PCP - General Internal Medicine 03/17/17 documented as of this encounter
--- OUTSIDE RECORDS SUMMARY | 2024-10-09 18:24 | XMS_ITS | Encounter Summary ---
Author Organization [employer] Address 75 [facility] [place] [address] Care Team Providers Care Wax Bleacher Name Role Phone Clare Mo MD Primary Care Provider +1- [phone] Reason for Visit * Reason Onset Date Comments call back 02/12/2023 Encounter Details Date Type Department Care Team ([facility] st Contact Info) Description 02/12/2023 Telephone [facility] MEDICINE 230 [place] [address] Clare Mo MD 505 [place] [address] call back Social History Tobacco Use Types Packs/Day Years [...] * Telephone Encounter - Dania Waldemar - 02/12/2023 10:36 AM EDT Tc from pt requesting a call back in regards to oxyCODONE-acetaminophen (Percocet) 7.5-325 MG tablet. Pt states pharmacy advised her PCP cancelled script. Please contact pt at [phone] documented in this encounter Plan of Treatment Upcoming Encounters Date Type Department Care Team ([facility] st Contact Info) Description 10/19/2024 11:00 AM EST Clinical Support [facility] MED & PEDS 505 [place] [address] Evelina Pimentel RN 505 [place] [address] documented as of this encounter Visit Diagnoses Not on filedocumented in this encounter Care Teams Wax Bleacher Relationship Specialty Start Date End Date Clare Mo MD 505 [place] [address] PCP - General Internal Medicine 03/17/17 documented as of this encounter
--- OUTSIDE RECORDS SUMMARY | 2024-10-09 18:24 | XMS_ITS | Encounter Summary ---
Author Organization [employer] Address [address] [place] [address] [facility] [place] [address] Care Team Providers Care Foundation Engineer Name Role Phone Clare Mo MD Primary Care Provider +1- [phone] Encounter Details Date Type Department Care Team (Late Contact Info) Description 05/14/2023 Orders Only [facility] MED & PEDS 505 [place] [address] Clare Mo MD 505 [place] [address] Pain in both hands (Primary Dx); Chronic migraine without aura without status migrainosus, not intractable; Anxiety; Chronic midline low back pain with sciatica, sciatica laterality unspecified Social History Tobacco Use Types Packs/Day Years [...] Encounters Date Type Department Care Team (Late Contact Info) Description 10/19/2024 11:00 AM EST Clinical Support [facility] MED & PEDS [address] [place] [address] Evelina Pimentel RN 505 [place], [place] [phone] documented as of this encounter Visit Diagnoses Diagnosis Pain in both hands- Primary Chronic migraine without aura without status migrainosus, not intractable Anxiety Anxiety state, unspecified Chronic midline low back pain with sciatica, sciatica laterality unspecified documented in this encounter Care Teams Foundation Engineer Relationship Specialty Start Date End Date Clare Mo MD 505 [place] [address] PCP - General Internal Medicine 03/17/17 documented as of this encounter
== END 2024-10-09 14:21 | disposition home or self-care (01) ==
PROVIDERS: PCP Nurse Practitioner Family; Visit Provider Physician Assistant
DX: M70.71 Other bursitis of hip, right hip (principal); M70.72 Other bursitis of hip, left hip
CPT/HCPCS: 99203; G2211

== ENCOUNTER → 2024-10-09 13:40 | Outpatient (BNVA) | payer MEDICARE, MEDICAID, SELFPAY | PROVIDERS: PCP Nurse Practitioner Family; Visit Provider Physician Assistant | DX: M70.71 Other bursitis of hip, right hip (principal); M70.72 Other bursitis of hip, left hip; R20.0 Anesthesia of skin; R20.2 Paresthesia of skin; Z91.81 History of falling | CPT/HCPCS: 99202 ==

== ENCOUNTER 2024-12-11 15:12 | Outpatient (REF) | payer MEDICARE, MEDICAID, SELFPAY ==
--- OUTSIDE RECORDS SUMMARY | 2024-12-11 17:11 | XMS_ITS | Encounter Summary ---
Author Organization [employer] Address 75 [facility] 7 [place] [address] Care Team Providers Care Boring Machine Operator Double End Name Role Phone Clare Mo MD Primary Care Provider +1- [phone] Reason for Visit * Reason Onset Date Comments Med Refill 11/10/2024 Encounter Details Date Type Department Care Team ([facility] st Contact Info) Description 11/10/2024 Telephone [facility] MEDICINE 230 [place] [address] Clare Mo MD 505 [place], [place] [phone] Med Refill Social History Tobacco Use Types [...] encounter Miscellaneous Notes * Telephone Encounter - Arnold Youngblood - 11/10/2024 12:28 PM EST TC from pt requesting medication refill. Medications needing refill : oxyCODONE-acetaminophen (Percocet) 10-325 MG tablet ALPRAZolam (Xanax) 1 MG tablet To be sent to: [facility] - [place], [place] - [address] [place] [address] ' ' documented in this encounter Plan of Treatment Upcoming Encounters Date Type Department Care Team (Late st Contact Info) Description 01/17/2025 11:00 AM EDT Clinical Support [facility] MED & PEDS 505 [place] [address] Evelina Pimentel, WILBER 505 [place] [address] documented as of this encounter Visit Diagnoses Not on filedocumented in this encounter Care Teams Boring Machine Operator Double End Relationship Specialty Start Date End Date Clare Mo MD 505 [place] [address] PCP - General Internal Medicine 03/17/17 documented as of this encounter
--- OUTSIDE RECORDS SUMMARY | 2024-12-11 17:11 | XMS_ITS | Encounter Summary ---
Author Organization [employer] Address 75 [facility] 7 [place] [address] Care Team Providers Care Furniture Mover Helper Name Role Phone Clare Mo MD Primary Care Provider +1- [phone] Reason for Visit * Reason Onset Date Comments Call Back Request 01/06/2024 Encounter Details Date Type Department Care Team ([facility] Contact Info) Description 01/06/2024 Telephone [facility] CHC MED & PEDS 505 [place] [address] Clare Mo MD 505 [place] [address] Call Back Request Social History Tobacco Use [...] Upcoming Encounters Date Type Department Care Team ([facility] st Contact Info) Description 01/17/2025 11:00 AM EDT Clinical Support [facility] MED & PEDS 505 [place] [address] Evelina Pimentel, WILBER 505 [place] [address] documented as of this encounter Visit Diagnoses Not on filedocumented in this encounter Care Teams Furniture Mover Helper Relationship Specialty Start Date End Date Clare Mo MD 505 [place] [address] PCP - General Internal Medicine 03/17/17 documented as of this encounter
--- OUTSIDE RECORDS SUMMARY | 2024-12-11 17:11 | XMS_ITS | Encounter Summary ---
Author Organization [employer] Address 75 [facility] 7 [place] [address] Care Team Providers Care Transportation Economics Teacher Name Role Phone Clare Mo MD Primary Care Provider +1- [phone] Reason for Visit * Reason Onset Date Comments call back requested 09/04/2024 Encounter Details Date Type Department Care Team ([facility] Contact Info) Description 09/04/2024 Telephone [facility] MEDICINE 230 [place] [address] Clare Mo MD 505 [place] [address] call back requested Social History Tobacco Use [...] Pt is to speak to Dahiana (ext [phone]) moving forward . documented in this encounter Plan of Treatment Upcoming Encounters Date Type Department Care Team (Late st Contact Info) Description 01/17/2025 11:00 AM EDT Clinical Support [facility] MED & PEDS [address] [place] [address] Evelina Pimentel, WILBER 505 [place] [address] documented as of this encounter Visit Diagnoses Not on filedocumented in this encounter Care Teams Transportation Economics Teacher Relationship Specialty Start Date End Date Clare Mo MD 505 [place] [address] PCP - General Internal Medicine 03/17/17 documented as of this encounter
--- OUTSIDE RECORDS SUMMARY | 2024-12-11 17:11 | XMS_ITS | Encounter Summary ---
Author Organization [employer] Address 75 [facility] 7t [place] [address] Care Team Providers Care Bass Viol Repairer Name Role Phone Clare Mo MD Primary Care Provider +1- [phone] Encounter Details Date Type Department Care Team ([facility] st Contact Info) Description 09/19/2024 Telephone [facility] MEDICINE [address] [place] [address] Clare Mo MD 505 [place] [address] Social History Tobacco Use Types Packs/Day Years [...] 09/19/2024 9:37 AM EST Safety and Incident Aviation Technician Aircraft Dahiana Bernal spoke with patient. Patient is requesting refill on medications : Gabapentin, Flexeril, Oxycodone, and Xanax. Patient upset due to [employer] continuesto state that the PCP has not signed CONTROL SYSTEMS SPECIALIST forms. Garment Looper informed will look into. documented in this encounter Plan of Treatment Upcoming Encounters Date Type Department Care Team (Late st Contact Info) Description 01/17/2025 11:00 AM EDT Clinical Support [facility] CHC MED & PEDS [address] [place] [address] Evelina Pimentel, WILBER 505 [place] [address] documented as of this encounter Visit Diagnoses Not on filedocumented in this encounter Care Teams Bass Viol Repairer Relationship Specialty Start Date End Date Clare Mo MD 505 [place] [address] PCP - General Internal Medicine 03/17/17 documented as of this encounter
--- OUTSIDE RECORDS SUMMARY | 2024-12-11 17:11 | XMS_ITS | Encounter Summary ---
Author Organization [employer] Address [address] [place] [address] [place] [address] Care Team Providers Care Industrial Chemistry Teacher Name Role Phone Clare Mo MD Primary Care Provider +1- [phone] Reason for Referral * Consultation (Routine) - Closed Specialty Diagnoses / Procedures Referred By Contac t Referred To Contact Orthopaedic Surgery Diagnoses Right hip pain SI joint arthritis (CMS/HCC) Clare Mo MD [address] [place] [address] Phone: tel: fax: [facility] [address] [place] [address] Drive [address] [place], [place] Phone: tel: fax: Referral ID Status Reason Start Date Expiration Date V isits Requested Visits Authorized [id number] Closed Specialty Services Required 09/07/2024 09/07/2025 6 6 Encounter Details Date Type Department Care Team ([facility] Contact Info) Description 09/04/2024 Orders Only [facility] CHC MED & PEDS 505 [place], [place] [phone] Clare Mo MD [address] [place] [address] Right hip pain (Primary Dx); SI joint [...] Upcoming Encounters Date Type Department Care Team ([facility] st Contact Info) Description 01/17/2025 11:00 AM EDT Clinical Support [facility] MED & PEDS 505 [place] [address] Evelina Pimentel, WILBER 505 [place] [address] Scheduled Referrals Name Type Priority Associated Diagnoses Order Schedule Referral to Orthopaedic Surgery Outpatient Referral Routine Right hip pain SI joint arthritis (CMS/HCC) Expected: 09/04/2024 (Approximate), Expires: 09/04/2025 documented as of this encounter Visit Diagnoses Diagnosis Right hip pain- Primary Pain in joint, pelvic region and thigh SI joint arthritis (CMS/HCC) documented in this encounter Care Teams Industrial Chemistry Teacher Relationship Specialty Start Date End Date Clare Mo MD [address] [place] [address] PCP - General Internal Medicine 03/17/17 documented as of this encounter
--- OUTSIDE RECORDS SUMMARY | 2024-12-11 17:11 | XMS_ITS | Encounter Summary ---
Author Organization [employer] [facility] Address [address] [place] [address] [place] [address] Care Team Providers Care Assembler Dielectric Heater Name Role Phone Clare Mo MD Primary Care Provider +1- [phone] Encounter Details Date Type Department Care Team (Late st Contact Info) Description 04/20/2023 Orders Only [facility] MED & PEDS [address] [place], [place] [phone] Clare Mo MD 505 [place] [address] Pain in both hands (Primary Dx); Chronic [...] Description 01/17/2025 11:00 AM EDT Clinical Support [facility] MED & PEDS 505 [place] [address] Evelina Pimentel RN 505 [place], [place] [phone] documented as of this encounter Visit Diagnoses Diagnosis Pain in both hands- Primary Chronic low back pain, unspecified back pain laterality, unspecified whether sciatica present documented in this encounter Care Teams Assembler Dielectric Heater Relationship Specialty Start Date End Date Clare Mo MD [address] [place] [address] PCP - General Internal Medicine 03/17/17 documented as of this encounter
--- OUTSIDE RECORDS SUMMARY | 2024-12-11 17:11 | XMS_ITS | Clinical Summary ---
Author Organization [facility] Address [address] [place] [address] Phone Care Team Providers Care Drafting Supervisor Name Role Phone Clare Mo MD Primary Care Provider +1 -[phone] Allergies No known active allergies Medications gabapentin (NEURONTIN) 800 mg tablet Take 1 Tablet by mouth 3 times daily. Active cyclobenzaprine (FLEXERIL) 10 mg tablet Take 1 Tablet by mouth 3 times daily as needed. Active ALPRAZolam (XANAX) 1 mg tablet Take 1 tablet (1 mg total) by mouth 1 (one) time each day if needed. for anxiety 07/20/2024 Active oxyCODONE-aceta minophen (PERCOCET) 10-325 mg per tablet Take 1 tablet by mouth every 6 (six) hours if needed for severe pain. 07/14/2024 Active ibuprofen (ADVIL,MOTRIN) 800 mg tablet TAKE 1 TABLET EVERY 8 HOURS FOR PAIN 09/04/2024 Active celecoxib (CeleBREX) 200 mg capsule Take 1 capsule (200 mg total) by mouth 2 (two) times a day. 10/09/2024 Active cholecalciferol (VITAMIN D-3) 25 mcg (1,000 unit) tablet Take 1 tablet (1,000 Units total) by mouth 1 (one) time each day. Active magnesium 250 mg tablet Take by mouth. Active Active Problems Problem Noted Date Diagnosed Date Left hip pain 09/19/2024 Assessment & Plan (09/20/2024 10:06 AM EST): Ms. Macedo describes significant pain at the left hip. She had pain with hip mechanical testing on the left hand side. She was tender at the greater trochanter. She had x-rays of the hip performed at [facility] on 08/01/24. They revealed calcific tendinitis [...] arms overhead, she had to ask the sound technician supervisor to help her move her arms back [...] to her next appointment. Assessment & Plan (10/17/2024 2:32 PM EST): I reviewed the cervical spine MRI from last year again with Ms. Rowell??a noting 3 level degenerative disc disease, mild kyphosis and, at worst, mild to moderate right C5-6 foraminal stenosis. There is no cord compression or clear signal change in the cord to explain why her hands and feet would be involved. The foraminal stenosis may explain the numbness, tingling or pain in her right hand but not her left. I think the main issue is degenerative disc disease causing her neck pain and poor mobility. I discussed that I generally do not recommend 3 level surgeries due to the increased risk of pseudoarthrosis and need for revision surgery. If we were to proceed, I would still plan to do just C4-5 and C5-6 the first time then reassess 6 to 12 months later if anything else needed to be done. At this point, she is going through some personal issues in her marriage and is not prepared to proceed with surgery. She has had some cervical injections in the past but cannot remember where specifically on her body or at what facility. I would like to try a right C5-6 SOILA to see if we can break the cycle of pain and give her a little relief. He is agreeable with the plan and will let us know if she finds any previous documentation. Assessment & Plan (09/19/2024 4:14 PM EST): Ms. Macedo continues to describe neck pain with radiation to her interscapular region and both arms. An MRI of the cervical spine from January of this year at [facility] veal degenerative changes most significant at [...] told her she likely has fibromyalgia. Saw financial systems manager, was started on vitamin D, magnesium, vitamin [...] lumbar cortisone injections back in 2020 at [facility]. She has been walking with a walker. Ms. Macedo describes left low back, buttock, hip and foot pain. She is having to walk with a walker, feels her balance is poor. We can check updated lumbar spine MRI with and without contrast to rule out recurrent disc herniation/nerve root compression. She would also like to be referred back to [facility] to see if they would offer left SI joint injection, she has tenderness over the SI joint, pain in the SI joint region with external hip rotation. She will go for the hip x-rays (already ordered by PCP) this coming week. We will follow-up with her after imaging is complete. Encounters Date Type Department Care Team Description 10/17/2024 2:00 PM EST Office Visit [address] [address] Keli Suggs MD Cervical spondylosis (Primary Dx) 09/19/2024 2:30 PM EST Office Visit [address] [address] Juan J Hodges PA Left hip pain (Primary Dx); Cervical spondylosis 09/14/[address] [address] Keli Suggs MD Advice Only from Last 3 Months Immunizations Name Administration [...] TUBAL LIGATION N/A with subsequent reversal in 2017, ectopic in 2018 OTHER SURGICAL HISTORY N/A Cholecystectomy NECK SURGERY [...] Tobacco: Never Tobacco Cessation:Counseling Given: Not Answered Comments Unknown Sex and Gender Information Value Date Recorded Sex Assigned at Not on file Legal Sex Female 2:55 AM EST Gender Identity Not on file Sexual Orientation Not on file Obstetrics History Last Filed [...] 09/19/2024 2:24 PM EST Plan of Treatment Health Maintenance Due Date Last Done Comments Breast Cancer Screening 1978 Hepatitis B Vaccines (1 of 3 - 19+ 3-dose series) 1997 Colorectal Cancer Screening: Colonoscopy 08/16/2022 Depression Screening 08/16/2022 HIV Screening 08/16/2022 Hepatitis C Screening 08/16/2022 Medicare Annual Wellness Visit 08/16/2022 Social Influencers of Health Screening 08/16/2022 COVID-19 Vaccine ( season) 2024 08/27/2023, 02/26/2023, 02/26/2023, Additional history exists Influenza Vaccine (#1) 2024 2, 06/17/2021, 06/05/2019, Additional history exists Cervical Cancer [...] patient's age to complete this topic Meningococcal B Vacine Aged Out No lo nger eligible based on patient's age to complete [...] on patient's age to complete this topic Insurance MEDICARE MEDICAID - [place] Care Teams Drafting Supervisor Relationship Specialty Start Date End Date Clare Mo MD [address] [place] [address] PCP - General 01/11/24
--- OUTSIDE RECORDS SUMMARY | 2024-12-11 17:11 | XMS_ITS | Encounter Summary ---
Author Organization [employer] Address 75 [facility] 7 [place] [address] Care Team Providers Care Tone Regulator Name Role Phone Clare Mo MD Primary Care Provider +1 [phone] Encounter Details Date Type Department Care Team ([facility] Contact Info) Description 02/24/2024 Orders Only [facility] [address] [place], [place] [id number] ProviderRadhika MD Social History Tobacco Use Types [...] Description 01/17/2025 11:00 AM EDT Clinical Support [facility] MED & PEDS [address] [place] [address] Evelina Pimentel, RN [address] [place] [address] documented as of this encounter Procedures Procedure [...] on filedocumented in this encounter Care Teams Tone Regulator Relationship Specialty Start Date End Date Clare Mo MD 505 [place] [address] PCP - General Internal Medicine 03/17/17 documented as of this encounter
--- OUTSIDE RECORDS SUMMARY | 2024-12-11 17:11 | XMS_ITS | Encounter Summary ---
Author Organization [employer] Address 75 [facility] 7 [place] [address] Care Team Providers Care Cell Tender Helper Name Role Phone Clare Mo MD Primary Care Provider [phone]- [phone] Reason for Visit * Reason Comments Med Refill Encounter Details Date Type Department Care Team ([facility] st Contact Info) Description 01/25/2024 Refill [facility] MED[facility]INE [address] [place] [address] Clare Mo MD [address] [place], [place] [phone] Chronic low back pain with sciatica, sciatica [...] t he electric, gas, oil or water [employer] threatened to shut off services in your [...] Description 01/17/2025 11:00 AM EDT Clinical Support [facility] MED & PEDS [address] [place] [address] Evelina Pimentel, WILBER [address] [place] [address] documented as of this encounter Visit Diagnoses Diagnosis Chronic low back pain with sciatica, sciatica laterality unspecified, unspecified back pain laterality Anxiety Anxiety state, unspecified documented in this encounter Care Teams Cell Tender Helper Relationship Specialty Start Date End Date Clare Mo MD [address] [place] [address] PCP - General Internal Medicine 03/17/17 documented as of this encounter
--- OUTSIDE RECORDS SUMMARY | 2024-12-11 17:11 | XMS_ITS | Encounter Summary ---
Author Organization [employer] Address [address] [place] [address] [place] [address] Care Team Providers Care Retail Tire Sales Manager Name Role Phone Clare Mo MD Primary Care Provider +1 [phone] Reason for Referral * Consultation (Urgent) - Closed Specialty Diagnoses / Procedures Referred By Contnola t Referred To Contact Neurosurgery Diagnoses Lumbar nerve root impingement Clare Mo MD [address] [place] [address] Phone: tel: fax: Keli Suggs [address] [place] [address], [address] [place], [place] Phone: tel: fax: Referral ID Status Reason Start Date Expiration Date V isits Requested Visits Authorized [id number] Closed Specialty Services Required 01/11/2024 01/10/2025 1 1 Encounter Details Date Type Department Care Team (Late st Contact Info) Description 01/11/2024 Orders Only [facility] MED & PEDS [address] [place] [address] Clare Mo MD [address] [place] [address] Lumbar nerve root impingement (Primary Dx); Chronic [...] Upcoming Encounters Date Type Department Care Team ([facility] Contact Info) Description 01/17/2025 11:00 AM EDT Clinical Support [facility] MED & PEDS [address] [place] [address] Evelina Pimentel RN [address] [place] [address] Scheduled Referrals Name Type Priority Associated Diagnoses [...] unspecified documented in this encounter Care Teams Retail Tire Sales Manager Relationship Specialty Start Date End Date Clare Mo MD [address] [place] [address] PCP - General Internal Medicine 03/17/17 documented as of this encounter
--- OUTSIDE RECORDS SUMMARY | 2024-12-11 17:11 | XMS_ITS | Encounter Summary ---
Author Organization [employer] Address [address] [place] [address] 7 [place] [address] Care Team Providers Care Film Waxer Name Role Phone Clare Mo MD Primary Care Provider +1- [phone] Reason for Visit * Reason Onset Date Comments Med Refill 04/02/2023 Medication Question 04/02/2023 Encounter Details Date Type Department Care Team ([facility] st Contact Info) Description 04/02/2023 Telephone [facility] CH[facility] MED & PEDS [address] [place], [place] [address] Clare Mo MD [address] [place], [place] [phone] Med Refill; Medication Question Social History Tobacco [...] Upcoming Encounters Date Type Department Care Team ([facility] st Contact Info) Description 01/17/2025 11:00 AM EDT Clinical Support [facility] MED & PEDS [address] [place] [address] Evelina Pimentel RN 505 [place] [address] documented as of this encounter Visit Diagnoses Not on filedocumented in this encounter Care Teams Film Waxer Relationship Specialty Start Date End Date Clare Mo MD 505 [place] [address] PCP - General Internal Medicine 03/17/17 documented as of this encounter
--- OUTSIDE RECORDS SUMMARY | 2024-12-11 17:11 | XMS_ITS | Encounter Summary ---
Author Organization [employer] Address [address] [facility] [address] [place] [address] Care Team Providers Care Radioisotope Technologist Name Role Phone Clare Mo MD Primary Care Provider +1- [phone] Reason for Visit * Reason Onset Date Comments Med Refill 03/19/2023 Encounter Details Date Type Department Care Team ([facility] Contact Info) Description 03/19/2023 Telephone [facility] CH[facility] MED & PEDS [address] [place] [address] Clare Mo MD [address] [place] [address] Med Refill Social History Tobacco Use Types [...] Upcoming Encounters Date Type Department Care Team ([facility] st Contact Info) Description 01/17/2025 11:00 AM EDT Clinical Support [facility] MED & PEDS [address] [place] [address] Evelina Pimentel, RN [address] [place] [address] documented as of this encounter Visit Diagnoses Not on filedocumented in this encounter Care Teams Radioisotope Technologist Relationship Specialty Start Date End Date Clare Mo MD [address] [place] [address] PCP - General Internal Medicine 03/17/17 documented as of this encounter
--- OUTSIDE RECORDS SUMMARY | 2024-12-11 17:11 | XMS_ITS | Encounter Summary ---
Author Organization [employer] Address 75 [facility] 7 [place] [address] Care Team Providers Care Caramel Candy Maker Name Role Phone Clare Mo MD Primary Care Provider +1- [phone] Reason for Visit * Reason Onset Date Comments Results 04/02/2023 Encounter Details Date Type Department Care Team ([facility] Contact Info) Description 04/02/2023 Telephone [facility] CH[facility] MED & PEDS [address] [place] [address] Clare Mo MD 505 [place] [address] Results Social History Tobacco Use Types Packs/Day [...] Upcoming Encounters Date Type Department Care Team ([facility] st Contact Info) Description 01/17/2025 11:00 AM EDT Clinical Support [facility] MED & PEDS [address] [place] [address] Evelina Pimentel RN 505 [place] [address] documented as of this encounter Visit Diagnoses Diagnosis Chronic midline low back pain with sciatica, sciatica laterality unspecified documented in this encounter Care Teams Caramel Candy Maker Relationship Specialty Start Date End Date Clare Mo MD [address] [place] [address] PCP - General Internal Medicine 03/17/17 documented as of this encounter
--- OUTSIDE RECORDS SUMMARY | 2024-12-11 17:11 | XMS_ITS | Encounter Summary ---
Author Organization [employer] Address [address] [place] [address] 7 [place] [address] Care Team Providers Care Soaking Tank Worker Name Role Phone Clare Mo MD Primary Care Provider +1- [phone] Reason for Visit * Reason Comments Med Refill Encounter Details Date Type Department Care Team ([facility] st Contact Info) Description 04/05/2023 Refill [facility] CH[facility] MED & PEDS [address] [place] [address] Clare Mo MD 505 [place] [address] Chronic midline low back pain with sciatica, [...] Description 01/17/2025 11:00 AM EDT Clinical Support [facility] MED & PEDS 505 [place] [address] Evelina Pimentel RN 505 [facility] [place] [address] documented as of this encounter Visit Diagnoses Diagnosis Chronic midline low back pain with sciatica, sciatica laterality unspecified Chronic low back pain, unspecified back pain laterality, unspecified whether sciatica present documented in this encounter Care Teams Soaking Tank Worker Relationship Specialty Start Date End Date Clare Mo MD 505 [facility] [place] [address] PCP - General Internal Medicine 03/17/17 documented as of this encounter
--- OUTSIDE RECORDS SUMMARY | 2024-12-11 17:11 | XMS_ITS | Encounter Summary ---
Author Organization [employer] Address [address] [place] [address] [place] [address] Care Team Providers Care Lace Stripper Name Role Phone Clare Mo MD Primary Care Provider +1- [phone] Reason for Visit * Reason Onset Date Comments Med Refill 03/09/2023 Encounter Details Date Type Department Care Team ([facility] Contact Info) Description 03/09/2023 Telephone [facility] CH[facility] MED & PEDS [address] [place] [address] Clare Mo MD [address] [place] [address] Med Refill Social History Tobacco Use Types [...] (Xanax) 1 MG tablet Please sent to [facility] - [place], [place] - [address] [facility] documented in this encounter Plan of Treatment Upcoming Encounters Date Type Department Care Team ([facility] st Contact Info) Description 01/17/2025 11:00 AM EDT Clinical Support [facility] MED & PEDS [address] [place] [address] Evelina Pimentel, WILBER 505 [place] [address] documented as of this encounter Visit Diagnoses Not on filedocumented in this encounter Care Teams Lace Stripper Relationship Specialty Start Date End Date Clare Mo MD [address] [place] [address] PCP - General Internal Medicine 03/17/17 documented as of this encounter
--- OUTSIDE RECORDS SUMMARY | 2024-12-11 17:11 | XMS_ITS | Encounter Summary ---
Author Organization [employer] Address [address] [place] [address] [address] [place] [address] Care Team Providers Care Vice President For Philanthropy Name Role Phone Clare Mo MD Primary Care Provider +1- [phone] Reason for Referral * Consultation (Routine) - Closed Specialty Diagnoses / Procedures Referred By Contac t Referred To Contact Nutrition Diagnoses Obesity, unspecified classification, unspecified obesity type, unspecified whether serious comorbidity present Clare Mo MD [address] [place] [address] Phone: tel: fax: Referral ID Status Reason Start Date Expiration Date V isits Requested Visits Authorized [id number] Closed Consult and Treat 05/19/2024 05/19/2025 1 1 Encounter Details Date Type Department Care Team ([facility] st Contact Info) Description 05/19/2024 Orders Only [facility] CH[facility] MED & PEDS [address] [place] [address] Clare Mo MD [address] [place] [address] Obesity, unspecified classification, unspecified obesity type, unspecified [...] [facility] MED & PEDS [address] [place] [address] Evelina Pimentel, RN [address] [place] [address] Scheduled Referrals Name Type Priority Associated Diagnoses Orde r Schedule Referral to Nutrition Therapy Outpatient Referral Routine Obesity, unspecified classification, unspecified obesity type, unspecified whether serious comorbidity present Expected: 05/19/2024 (Approximate), Expires: 05/19/2025 documented as of this encounter Visit Diagnoses Diagnosis Obesity, unspecified classification, unspecified obesity type, unspecified whether serious comorbidity present- Primary documented in this encounter Care Teams Vice President For Philanthropy Relationship Specialty Start Date End Date Clare Mo MD [address] [place] [address] PCP - General Internal Medicine 03/17/17 documented as of this encounter
--- OUTSIDE RECORDS SUMMARY | 2024-12-11 17:11 | XMS_ITS | Encounter Summary ---
Author Organization [employer] Address 75 [facility] 7 [place] [address] Care Team Providers Care Facilities Mechanical Design Engineer Name Role Phone Clare Mo MD Primary Care Provider +1- [phone] Reason for Visit * Reason Onset Date Comments Med Refill 04/14/2024 Encounter Details Date Type Department Care Team ([facility] st Contact Info) Description 04/14/2024 Telephone [facility] MEDICINE [address] [place] [address] Clare Mo MD [address] [place] [address] Med Refill Social History Tobacco Use Types [...] 1 MG tablet To be sent to: [facility] - [place], [place] - [address] [place] [address] documented in this encounter Plan of Treatment Upcoming Encounters Date Type Department Care Team (Late st Contact Info) Description 01/17/2025 11:00 AM EDT Clinical Support [facility] MED & PEDS 505 [place] [address] Evelina Pimentel RN 505 [place] [address] documented as of this encounter Visit Diagnoses Not on filedocumented in this encounter Care Teams Facilities Mechanical Design Engineer Relationship Specialty Start Date End Date Clare Mo MD [address] [place] [address] PCP - General Internal Medicine 03/17/17 documented as of this encounter
--- OUTSIDE RECORDS SUMMARY | 2024-12-11 17:11 | XMS_ITS | Encounter Summary ---
Author Organization [employer] Address 75 [facility] 7 [place] [address] Care Team Providers Care Gravity Prospecting Observer Name Role Phone Clare Mo MD Primary Care Provider +1- [phone] Encounter Details Date Type Department Care Team ([facility] Contact Info) Description 09/29/2024 Orders Only [facility] MED & PEDS [address] [place], [place] [phone] Clare Mo MD [address] [place] [address] Social History Tobacco Use Types Packs/Day Years [...] Description 01/17/2025 11:00 AM EDT Clinical Support [facility] MED & PEDS [address] [place] [address] Evelina Pimentel, WILBER [address] [place] [address] documented as of this encounter Visit Diagnoses Not on filedocumented in this encounter Care Teams Gravity Prospecting Observer Relationship Specialty Start Date End Date Clare Mo MD [address] [place] [address] PCP - General Internal Medicine 03/17/17 documented as of this encounter
--- OUTSIDE RECORDS SUMMARY | 2024-12-11 17:11 | XMS_ITS | Encounter Summary ---
Author Organization [employer] Address 75 [facility] 7 [place] [address] Care Team Providers Care Chart Collector Name Role Phone Clare Mo MD Primary Care Provider +1- [phone] Reason for Visit * Reason Onset Date Comments Med Refill 03/03/2024 Encounter Details Date Type Department Care Team ([facility] st Contact Info) Description 03/03/2024 Telephone [facility] MEDICINE [address] [place] [address] Clare Mo MD [address] [place] [address] Med Refill Social History Tobacco Use Types [...] as they should both have refills at [facility]. * Telephone Encounter - Ayla Gongora - 03/03/2024 10:18 AM EDT TC from pt requesting medication refill. Medications needing refill : cyclobenzaprine (Flexeril) 10 MG tablet gabapentin (Neurontin) 800 MG tablet To be sent to: [facility] - [place], [place] - [address] [place] [address] documented in this encounter Plan of Treatment Upcoming Encounters Date Type Department Care Team ([facility] st Contact Info) Description 01/17/2025 11:00 AM EDT Clinical Support [facility] MED & PEDS [address] [place] [address] Evelina Pimentel, WILBER [address] [place] [address] documented as of this encounter Visit Diagnoses Diagnosis Anxiety Anxiety state, unspecified Chronic low back pain with sciatica, sciatica laterality unspecified, unspecified back pain laterality documented in this encounter Care Teams Chart Collector Relationship Specialty Start Date End Date Clare Mo MD [address] [place] [address] PCP - General Internal Medicine 03/17/17 documented as of this encounter
--- OUTSIDE RECORDS SUMMARY | 2024-12-11 17:11 | XMS_ITS | Encounter Summary ---
Author Organization [employer] [facility] Address [address] [place] [address] 7 [place] [address] Care Team Providers Care Zipper Trimmer Name Role Phone Clare Mo MD Primary Care Provider +1- [phone] Encounter Details Date Type Department Care Team ([facility] Contact Info) Description 03/23/2023 Orders Only [facility] MED & PEDS [address] [place] [address] Clare Mo MD [address] [place] [address] Chronic low back pain with sciatica, sciatica [...] Upcoming Encounters Date Type Department Care Team ([facility] Contact Info) Description 01/17/2025 11:00 AM EDT Clinical Support [facility] MED & PEDS [address] [place] [address] Evelina Pimentel, WILBER [address] [place] [address] documented as of this encounter Visit Diagnoses Diagnosis Chronic low back pain with sciatica, sciatica laterality unspecified, unspecified back pain laterality- Primary Vitamin D deficiency documented in this encounter Care Teams Zipper Trimmer Relationship Specialty Start Date End Date Clare Mo MD [address] [place] [address] PCP - General Internal Medicine 03/17/17 documented as of this encounter
--- OUTSIDE RECORDS SUMMARY | 2024-12-11 17:11 | XMS_ITS | Encounter Summary ---
Author Organization [employer] Address [address] [facility] 7 [place] [address] Care Team Providers Care Galvanizer Name Role Phone Clare Mo MD Primary Care Provider +1- [phone] Encounter Details Date Type Department Care Team ([facility] Contact Info) Description 10/20/2024 Orders Only [facility] CHC MED & PEDS [address] [place], [place] [phone] Clare Mo MD 505 [place] [address] Chronic low back pain with sciatica, sciatica [...] t he electric, gas, oil or water Present threatened to shut off services in your [...] Description 01/17/2025 11:00 AM EDT Clinical Support [facility] CHC MED & PEDS 505 [place] [address] Evelina Pimentel, WILBER 505 [place] [address] documented as of this encounter Visit Diagnoses Diagnosis Chronic low back pain with sciatica, sciatica laterality unspecified, unspecified back pain laterality- Primary documented in this encounter Care Teams Galvanizer Relationship Specialty Start Date End Date Clare Mo MD 505 [place] [address] PCP - General Internal Medicine 03/17/17 documented as of this encounter
--- OUTSIDE RECORDS SUMMARY | 2024-12-11 17:11 | XMS_ITS | Encounter Summary ---
Author Organization [employer] Address [address] [place] [address] [place] [address] Care Team Providers Care Deicer Repairer Name Role Phone Clare Mo MD Primary Care Provider +1- [phone] Reason for Visit * Reason Comments Med Refill Encounter Details Date Type Department Care Team ([facility] Contact Info) Description 03/09/2023 Refill [facility] MED & PEDS 505 [place] [address] Clare Mo MD 505 [place] [address] Chronic low back pain with sciatica, sciatica [...] Encounters Date Type Department Care Team ([facility] Contact Info) Description 01/17/2025 11:00 AM EDT Clinical Support [facility] MED & PEDS 505 [place] [address] Evelina iPmentel, WILBER 505 [place] [address] documented as of this encounter Visit Diagnoses Diagnosis Chronic low back pain with sciatica, sciatica laterality unspecified, unspecified back pain laterality Anxiety Anxiety state, unspecified documented in this encounter Care Teams Deicer Repairer Relationship Specialty Start Date End Date Clare Mo MD 505 [place] [address] PCP - General Internal Medicine 03/17/17 documented as of this encounter
--- OUTSIDE RECORDS SUMMARY | 2024-12-11 17:11 | XMS_ITS | Encounter Summary ---
Author Organization [employer] Address [address] [place] [address] [facility] [place] [address] Care Team Providers Care Grease And Tallow Pumper Name Role Phone Clare Mo MD Primary Care Provider +1- [phone] Reason for Visit * Reason Onset Date Comments Medication Question 03/19/2023 Encounter Details Date Type Department Care Team ([facility] Contact Info) Description 03/19/2023 Telephone [facility] CHC MED & PEDS 505 [place] [address] Clare Mo MD 505 [place] [address] Medication Question Social History Tobacco Use Types [...] increase, pt requested to speak to nurse supervisor contingents, Plastic Eye Technician advice to return call after 9:30 where she can be connected to a change control manager or nurse, pt agreed to plan. * Telephone Encounter - Dania Medeiros - 03/19/2023 12:16 PM EDT Tc from pt wants to know if PCP can up the dosage for oxyCODONE-acetaminophen (Percocet) 7.5-325 MGtablet documented in this encounter Plan of Treatment Upcoming Encounters Date Type Department Care Team (Late st Contact Info) Description 01/17/2025 11:00 AM EDT Clinical Support [facility] MED & PEDS 505 [place] [address] Evelina Pimentel, RN 505 [place] [address] documented as of this encounter Visit Diagnoses Not on filedocumented in this encounter Care Teams Grease And Tallow Pumper Relationship Specialty Start Date End Date Clare Mo MD 505 [place] [address] PCP - General Internal Medicine 03/17/17 documented as of this encounter
--- OUTSIDE RECORDS SUMMARY | 2024-12-11 17:11 | XMS_ITS | Encounter Summary ---
Author Organization [employer] Address [address] [facility] 7 [place] [address] Care Team Providers Care Quiller Hand Name Role Phone Clare Mo MD Primary Care Provider +1- [phone] Reason for Visit * Reason Onset Date Comments Med Refill 11/28/2024 Encounter Details Date Type Department Care Team ([facility] st Contact Info) Description 11/28/[address] [facility] MEDICINE [address] [place] [address] Clare Mo MD 505 [place], [place] [phone] Med Refill Social History Tobacco Use Types [...] * Telephone Encounter - Arnold Youngblood - 11/28/2024 8:25 AM EDT TC from pt requesting medication refill. Medications needing refill : oxyCODONE-acetaminophen (Percocet) 10-325 MG tablet To be sent to: [facility] - [place], [place] - [address] [place] [address] documented in this encounter Plan of Treatment Upcoming Encounters Date Type Department Care Team (Late st Contact Info) Description 01/17/2025 11:00 AM EDT Clinical Support [facility] CHC MED & PEDS 505 [place] [address] Evelina Pimentel, WILBER 505 [place] [address] documented as of this encounter Visit Diagnoses Not on filedocumented in this encounter Care Teams Quiller Hand Relationship Specialty Start Date End Date Clare Mo MD 505 [place] [address] PCP - General Internal Medicine 03/17/17 documented as of this encounter
--- OUTSIDE RECORDS SUMMARY | 2024-12-11 17:12 | XMS_ITS | Encounter Summary ---
Author Organization [employer] Address [address] [place] [address] [place] [address] Care Team Providers Care Cloth Dyer Name Role Phone Clare Mo MD Primary Care Provider +1- [phone] Encounter Details Date Type Department Care Team ([facility] Contact Info) Description 02/12/2023 Orders Only [facility] MED & PEDS [address] [place] [address] Clare Mo MD 505 [place] [address] Chronic low back pain with sciatica, sciatica [...] Upcoming Encounters Date Type Department Care Team ([facility] Contact Info) Description 01/17/2025 11:00 AM EDT Clinical Support [facility] MED & PEDS [address] [place] [address] Evelina Pimentel, WILBER 505 [place] [address] documented as of this encounter Procedures Procedure Name Priority Date/Time Associated Diagnosis Comments PAP SMEAR Routine 03/08/2023 12:18 PM EDT Chronic low back pain with sciatica, sciatica laterality unspecified, unspecified back pain laterality documented in this encounter Results * Pap Smear (03/08/2023 12:18 PM EDT) 03/08/2023 12:1 8 PM EDT 03/10/2023 8:55 AM EDT [facility] - 03/27/2023 3:23 PM EDT ----- ------- Name: May Beckwith ?Age/Sex: 42/F ? : 1980 Unit#: [id number] ?? Attend Dr: Jeff William MD ?Re03/08/23 ?Status: DEP REF ? Location: HO.LNP ?Disch: ? ----- ------- SPEC : [id number] ? RECD: 03/10/23 ? STATUS: ??SOUT ? REQ NUM: [id number] ? BRANDON: 03/08/238 ? SUBM DR: Jeff [...] 66, 68) ? HPV testing performed by [facility], [place], [place]. ??See reference laboratory ?? portion of the EMR for entire report. ?Clinical Information LMP: 03/05/23 Previous PAP test: Unknown date/findings ? Material Received ?? ThinPrep-Cervical Copies To: ?? Clare Mo MD ?? [address] ?? [place] [address] ? Jeff William MD ?? [address] [place] [address] [facility] [address] ?? [place] [address] ?? [phone] ----- ------- Signed (signature on file) Alondra Santillan 03/27/23 1523 ? ----- ------- ? END OF REPORT ? [facility] External Provider LAB [facility] ORDERABLES Final Result [facility] [address] [place] [address] [phone] documented in this encounter Visit Diagnoses Diagnosis Chronic low back pain with sciatica, sciatica laterality unspecified, unspecified back pain laterality documented in this encounter Care Teams Cloth Dyer Relationship Specialty Start Date End Date Clrae Mo MD [address] [place] [address] PCP - General Internal Medicine 03/17/17 documented as of this encounter
--- OUTSIDE RECORDS SUMMARY | 2024-12-11 17:12 | XMS_ITS | Encounter Summary ---
Author Organization [employer] Address [address] [facility] 7 [place] [address] Care Team Providers Care Senior Chemical Process Engineer Name Role Phone Clare Mo MD Primary Care Provider +1- [phone] Encounter Details Date Type Department Care Team ([facility] Contact Info) Description 11/29/2023 Orders Only [facility] CHC MED & PEDS 505 [place], [place] [phone] Clare Mo MD 505 [place] [address] Chronic low back pain with sciatica, sciatica [...] t he electric, gas, oil or water [employer] threatened to shut off services in your home? No 06/28/2023 Comments Unknown Sex and Gender Information Value Date Recorded Sex Assigned at Female 2022 10:17 AM EDT Legal Sex Female 10:17 AM EDT Gender Identity Female 2022 10:17 AM EDT Sexual Orientation Straight 2022 10 :17 AM EDT documented as of this encounter Plan of Treatment Upcoming Encounters Date Type Department Care Team ([facility] st Contact Info) Description 01/17/2025 11:00 AM EDT Clinical Support [facility] MED & PEDS 505 [place] [address] Evelina Pimentel RN 505 [place] [address] documented as of this encounter Visit Diagnoses Diagnosis Chronic low back pain with sciatica, sciatica laterality unspecified, unspecified back pain laterality- Primary documented in this encounter Care Teams Senior Chemical Process Engineer Relationship Specialty Start Date End Date Clare Mo MD 505 [place] [address] PCP - General Internal Medicine 03/17/17 documented as of this encounter
--- OUTSIDE RECORDS SUMMARY | 2024-12-11 17:12 | XMS_ITS | Encounter Summary ---
Author Organization [employer] Address [address] [facility] 7 [place] [address] Care Team Providers Care Tape Recording Machine Operator Name Role Phone Clare Mo MD Primary Care Provider +1- [phone] Reason for Visit * Reason Onset Date Comments Nurse Triage 12/11/2024 Encounter Details Date Type Department Care Team ([facility] st Contact Info) Description 12/11/2024 Telephone [facility] MEDICINE [address] [place] [address] Clare Mo MD 505 [place], [place] [phone] Nurse Triage Social History Tobacco Use Types Packs/Day Years [...] encounter Miscellaneous Notes * Telephone Encounter - Dodie Loya LPN - 12/11/2024 10:37 AM EDT Triage call returned to patient who reports she had a fall on Wednesday while exiting during a fire alarm. Fell on the stairs landing backwards did not strike head no LOC. No noted bruising but is having neck and shoulder pain with noted left foot pain as well. No swelling noted. Patient reports that she took previously prescribed Oxycodone earlier today and that she can't find meds in her bedroom and has reached out to in regards to medication.. Disposition reviewed and patient in agreement with plan. ASK/SDC/CHC today with at 2pm.Reviewed with patient home care recommendations and reasons to call back. Pt verbalized understanding and agrees. Multiple (2) protocols were used on this call. Disposition for Call: See in Office or Video Visit within 3 Days Protocol Used: Falls and Falling (Adult) Protocol-Based Disposition: See in Office or Video Visit within 3 Days Positive Triage Question: * Patient wants to be seen * All higher-acuity triage questions were negative Protocol Used: Neck Injury (Adult) Protocol-Based Disposition: See in Office or Video Visit within 3 Days Positive Triage Question: * Injury and pain has not improved after 3 days * All higher-acuity triage questions were negative Care Advice Discussed: * Reasons To Call Back - You become worsed * Telephone Encounter - Little Draperjesus Panda - 12/11/2024 10:30 AM EDT Symptom: Fall (Wednesday) Outcome: Talk to a nurse or provider within 15 minutes Reason: Neck pain The caller accepted this outcome. [phone] documented in this encounter Plan of Treatment Upcoming Encounters Date Type Department Care Team (Late st Contact Info) Description 01/17/2025 11:00 AM EDT Clinical Support [facility] CHC MED & PEDS 505 [place] [address] Evelina Pimentel, RN 505 [place] [address] documented as of this encounter Visit Diagnoses Not on filedocumented in this encounter Care Teams Tape Recording Machine Operator Relationship Specialty Start Date End Date Clare Mo MD 505 [place] [address] PCP - General Internal Medicine 03/17/17 documented as of this encounter
--- OUTSIDE RECORDS SUMMARY | 2024-12-11 17:12 | XMS_ITS | Encounter Summary ---
Author Organization [employer] [facility] Address [address] [place] [address] 7 [place] [address] Care Team Providers Care Divine Healer Name Role Phone Clare Mo MD Primary Care Provider +1- [phone] Encounter Details Date Type Department Care Team ([facility] Contact Info) Description 03/03/2023 Abstract [facility] MED & PEDS [address] [place] [address] Kelsea Talley MA Social History Tobacco Use [...] Upcoming Encounters Date Type Department Care Team ([facility] Contact Info) Description 01/17/2025 11:00 AM EDT Clinical Support [facility] MED & PEDS [address] [place] [address] Evelina Pimentel, WILBER 505 [place] [address] documented as of this encounter Visit Diagnoses Not on filedocumented in this encounter Care Teams Divine Healer Relationship Specialty Start Date End Date Clare Mo MD [address] [place] [address] PCP - General Internal Medicine 03/17/17 documented as of this encounter
--- OUTSIDE RECORDS SUMMARY | 2024-12-11 17:12 | XMS_ITS | Encounter Summary ---
Author Organization [employer] Address [address] [facility] 7 [place] [address] Care Team Providers Care Cork Insulation Installer Name Role Phone Clare Mo MD Primary Care Provider +1- [phone] Reason for Visit * Reason Onset Date Comments Med Refill 05/29/2024 Encounter Details Date Type Department Care Team ([facility] st Contact Info) Description 05/29/[address] [facility] MEDICINE [address] [place] [address] Clare Mo MD 505 [place] [address] Med Refill Social History Tobacco Use Types [...] 1 MG tablet To be sent to: [facility] - [place], [place] - [address] [place] [address] documented in this encounter Plan of Treatment Upcoming Encounters Date Type Department Care Team (Late st Contact Info) Description 01/17/2025 11:00 AM EDT Clinical Support [facility] MED & PEDS 505 [place] [address] Evelina Pimentel, WILBER 505 [place] [address] documented as of this encounter Visit Diagnoses Not on filedocumented in this encounter Care Teams Cork Insulation Installer Relationship Specialty Start Date End Date Clare Mo MD 505 [place] [address] PCP - General Internal Medicine 03/17/17 documented as of this encounter
--- OUTSIDE RECORDS SUMMARY | 2024-12-11 17:12 | XMS_ITS | Encounter Summary ---
Author Organization [employer] Address [address] [facility] 7t [place] [address] Care Team Providers Care Acid Regenerator Name Role Phone Clare Mo MD Primary Care Provider +1 [phone] Encounter Details Date Type Department Care Team (Latest Contact Info) Description 12/11/2024 Travel Social History Tobacco Use Types Packs/Day Years [...] 11:00 AM EDT Clinical Support [facility] MED & PEDS 505 [place] [address] Evelina Pimentel, WILBER 505 [place] [address] documented as of this encounter Visit Diagnoses Not on filedocumented in this encounter Care Teams Acid Regenerator Relationship Specialty Start Date End Date Clare Mo MD 505 [place] [address] PCP - General Internal Medicine 03/17/17 documented as of this encounter
--- OUTSIDE RECORDS SUMMARY | 2024-12-11 17:12 | XMS_ITS | Encounter Summary ---
Author Organization [employer] Address [address] [place] [address] [place] [address] Care Team Providers Care Testing Machine Operator Name Role Phone Clare Mo MD Primary Care Provider +1- [phone] Encounter Details Date Type Department Care Team (Late Contact Info) Description 05/14/2023 Orders Only [facility] MED & PEDS [address] [place] [address] Clare Mo MD 505 [place] [address] Pain in both hands (Primary Dx); Chronic [...] Department Care Team (Late Contact Info) Description 01/17/2025 11:00 AM EDT Clinical Support [facility] MED & PEDS 505 [place] [address] Evelina Pimentel RN 505 [place], [place] [phone] documented as of this encounter Visit Diagnoses Diagnosis Pain in both hands- Primary Chronic migraine without aura without status migrainosus, not intractable Anxiety Anxiety state, unspecified Chronic midline low back pain with sciatica, sciatica laterality unspecified documented in this encounter Care Teams Testing Machine Operator Relationship Specialty Start Date End Date Clare Mo MD 505 [place] [address] PCP - General Internal Medicine 03/17/17 documented as of this encounter
--- OUTSIDE RECORDS SUMMARY | 2024-12-11 17:12 | XMS_ITS | Encounter Summary ---
Author Organization [employer] [facility] Address [address] [place] [address] 7 [place] [address] Care Team Providers Care Recharger Name Role Phone Clare Mo MD Primary Care Provider +1- [phone] Encounter Details Date Type Department Care Team ([facility] Contact Info) Description 03/03/2023 Abstract [facility] MED & PEDS [address] [place] [address] Kelsea Talley MA Social History Tobacco Use [...] Upcoming Encounters Date Type Department Care Team ([facility] Contact Info) Description 01/17/2025 11:00 AM EDT Clinical Support [facility] MED & PEDS [address] [place] [address] Evelina Pimentel, WILBER 505 [place] [address] documented as of this encounter Visit Diagnoses Not on filedocumented in this encounter Care Teams Recharger Relationship Specialty Start Date End Date Clare Mo MD [address] [place] [address] PCP - General Internal Medicine 03/17/17 documented as of this encounter
--- OUTSIDE RECORDS SUMMARY | 2024-12-11 17:12 | XMS_ITS | Encounter Summary ---
Author Organization [employer] Address 75 [facility] 7 [place] [address] Care Team Providers Care Certified Nurses' Aide Name Role Phone Clare Mo MD Primary Care Provider +1- [phone] Reason for Visit * Reason Onset Date [...] Department Care Team ([facility] Contact Info) Description 09/22/2022 Telephone [facility] ADULT DENTAL [address] [place] [address] Shukri, Seema [address] [place], [place] [phone] treatment (Patient called in looking to have [...] Description 01/17/2025 11:00 AM EDT Clinical Support [facility] CHC MED & PEDS 505 [place] [address] Evelina Pimentel, WILBER 505 [place] [address] documented as of this encounter Visit Diagnoses Not on filedocumented in this encounter Care Teams Certified Nurses' Aide Relationship Specialty Start Date End Date Clare Mo MD 505 [place] [address] PCP - General Internal Medicine 03/17/17 documented as of this encounter
--- OUTSIDE RECORDS SUMMARY | 2024-12-11 17:12 | XMS_ITS | Clinical Summary ---
Author Organization [employer] Address [address] [place] [address] 7 [place] [address] Care Team Providers Care Security Threat Analyst Name Role Phone Clare Mo MD Primary Care Provider +1- [phone] Allergies Active Allergy Reactions Criticality Noted Date [...] 02/04/20 21 Active Misc. Devices (Rollator Ultra-Light) miscIndication s:poor balance To use daily 09/08/20 21 Active Misc. Devices (Cane) misc Use 1 by To Assist with ambulation route 04/15/20 21 Active Elastic Bandages & Supports (Elbow Strap Left/Right) miscIndication s:Dx:Tennis Elbow To wear daily 04/05/20 20 Active Heating Pads pads To use daily 05/20/20 21 Active Elastic Bandages & Supports (Knee Brace) misc Knee brace large/xlarge To use daily 09/30/19 22 Active Elastic Bandages & Supports (Lumbar Back Brace/Support Pad) miscIndication s:Chronic midline low back pain, unspecified whether sciatica present To wear daily as needed. 1 each 10/09/19 23 Active cholecalcifero l (Vitamin D-3) 25 MCG (1000 UT) tabletIndicati ons:Vitamin D deficiency Take 1 tablet (25 mcg) by mouth in the morning. 60 tablet 11 03/26/20 23 Active Diclofenac Sodium 1 % gel To use on the affected area 3 times a day 100 g 2 04/15/20 23 Active Elastic Bandages & Supports (Wrist Brace Deluxe) miscIndication s:Pain in both hands Bilateral hand pain. Please provide a brace that can cover the hands as per pt's request. 2 each 05/14/20 23 Active Elastic Bandages & Supports (Wrist Brace Deluxe) miscIndication s:Pain in both hands Please provide a brace that can cover the hands as per pt's request. 2 each 05/14/20 23 Active Rhubarb (Estroven Complete) 4 MG tabletIndicati ons:Hot flashes 1 tab once a day 30 tablet 3 03/08/20 24 Active gabapentin (Neurontin) 800 MG tabletIndicati ons:Chronic pain syndrome TAKE ONE TABLET BY MOUTH THREE TIMES DAILY 90 tablet 5 09/19/19 25 Active cyclobenzaprin e (Flexeril) 10 MG tablet Take 1 tablet (10 mg) by mouth 2 times daily. 60 tablet 3 09/19/19 25 Active pregabalin (Lyrica) 200 MG capsuleIndicat ions:Chronic low back pain with sciatica, sciatica laterality unspecified, unspecified back pain laterality Take 1 capsule (200 mg) by mouth 2 times daily. 60 capsule 11/10/19 25 026 Active oxyCODONE-acet aminophen (Percocet) 10-325 MG tabletIndicati ons:Chronic low back pain with sciatica, sciatica laterality unspecified, unspecified back pain laterality Take 1 tablet by mouth every 6 (six) hours if needed for severe pain. 100 tablet 12/07/19 25 Active ALPRAZolam (Xanax) 1 MG tabletIndicati ons:Anxiety TAKE ONE TABLET BY MOUTH EVERY DAY NEEDED FOR ANXIETY FOR UP TO 15 DAYS 25 tablet 12/12/19 25 Active tiZANidine (Zanaflex) 4 MG tabletIndicati ons:Neck pain Take 1 tablet (4 mg) by mouth every 6 (six) hours if needed for muscle spasms for up to 10 days. 40 tablet 12/12/19 25 025 Active HYDROcodone-ac etaminophen (Alexandria) 5-325 MG tabletIndicati ons:Neck pain,Acute left ankle pain,Low back pain at multiple sites,Acute pain of both shoulders Take 1 tablet by mouth every 6 (six) hours if needed for severe pain for up to 5 days. 20 tablet 12/12/19 25 025 Active ALPRAZolam (Xanax) 1 MG tabletIndicati ons:Anxiety TAKE ONE TABLET BY MOUTH EVERY DAY NEEDED FOR ANXIETY FOR UP TO 15 DAYS Do not start before November 13, 2024. 25 tablet 11/14/19 25 025 Discontinued(R eorder (will not trigger notification to Pharmacy)) oxyCODONE-acet aminophen (Percocet) 10-325 MG tabletIndicati ons:Chronic low back pain with sciatica, sciatica laterality unspecified, unspecified back pain laterality Take 1 tablet by mouth every 6 (six) hours if needed for severe pain. Do not start before November 13, 2024. 100 tablet 11/14/19 25 025 Discontinued(R eorder (will not trigger notification to Pharmacy)) oxyCODONE-acet aminophen (Percocet) 10-325 MG tabletIndicati ons:Chronic low back pain with sciatica, sciatica laterality unspecified, unspecified back pain laterality Take 1 tablet by mouth every 6 (six) hours if needed for severe pain. Do not start before December 07, 2024. 100 tablet 12/08/19 25 025 Discontinued(R eorder (will not trigger notification to Pharmacy)) Hospital, Clinic, or Other Facility Administered Medication Ordered Dose Route Frequency Start Date End Date Status ketorolac (Toradol) injection 30 mgIndications:Neck pain 30 mg IM Once 12/11/2024 12/11/2024 E nded Active Problems Problem Noted Date Diagnosed Date [...] Encounters Date Type Department Care Team Description 12/11/2024 2:00 PM EDT Office Visit [facility] [address] [place] [address] Clare Mo MD Neck pain (Primary Dx); Acute left ankle pain; Low back pain at multiple sites; Acute pain of both shoulders 12/11/2024 Travel 12/11/2024 Telephone [facility] [address] [place] [address] Clare Mo MD Nurse Triage 12/07/2024 Refill [facility] [address] [place] [address] Clare Mo MD Chronic low back pain with sciatica, sciatica laterality unspecified, unspecified back pain laterality; Anxiety 12/06/2024 Telephone [facility] [address] [place] [address] Clare Mo MD Medication Question 11/28/2024 Refill [facility] [address] [place] [address] Evelina Pimentel hand assembler for puller over low back pain with sciatica, sciatica laterality unspecified, unspecified back pain laterality 11/28/2024 Telephone [facility] [address] [place] [address] Clare Mo MD Med Refill 11/24/2024 Population Health Risk Score [facility] () [address] [id number] Provider, Population Health Generic 11/10/2024 Refill [facility] [address] [place] [address] Evelina Pimentel RN Anxiety; Chronic low back pain with sciatica, sciatica laterality unspecified, unspecified back pain laterality 11/10/2024 Refill [facility] [address] [place] [address] Clare Mo MD Chronic low back pain with sciatica, sciatica laterality unspecified, unspecified back pain laterality 11/10/2024 Telephone [facility] [address] [place] [address] Clare Mo MD Med Refill 10/20/2024 Orders Only [facility] [address] [place] [address] Clare Mo MD Chronic low back pain with sciatica, sciatica laterality unspecified, unspecified back pain laterality (Primary Dx) 10/20/2024 Telephone [facility] [address] [place] [address] Clare Mo MD Medication Question 10/19/2024 11:00 AM EST Clinical Support [facility] [address] [place] [address] Evelina Pimentel, hand assembler for puller over left-sided low back pain, unspecified whether sciatica present 10/19/2024 Refill [facility] [address] [place] [address] Evelina iPmentel, WILBER Anxiety; Chronic low back pain with sciatica, sciatica laterality unspecified, unspecified back pain laterality 10/19/2024 Travel 10/17/2024 Telephone [facility] [address] [place] [address] Evelina Pimentel, WILBER 10/03/2024 Telephone [facility] [address] [place] [address] Akanksha Bunch RN 09/29/2024 Orders Only [facility] [address] [place] [address] Clare Mo MD 09/19/2024 Telephone [facility] [address] [place] [address] Clare Mo MD 09/19/2024 Refill [facility] [address] [place] [address] Clare Mo MD Anxiety; Chronic pain syndrome; Chronic low back pain with sciatica, sciatica laterality unspecified, unspecified back pain laterality from Last 3 Months Immunizations Name Administration [...] Sign Reading Time Taken Comments Blood Pressure 106/56 12/11/2024 1:57 PM EDT Pulse 81 12/11/2024 1:57 PM EDT Temperature 36.6 ??C (97.9 ??F) 12/11/2024 1:57 PM ED T Respiratory Rate 20 12/11/2024 1:57 PM EDT Oxygen Saturation 98% 12/11/2024 1:57 PM EDT Inhaled Oxygen Concentration - - Weight 88 kg (194 lb) 12/11/2024 1:57 PM EDT Height 163 cm (5' 4.17 ) 12/11/2024 1:57 PM EDT Body Mass Index 33.12 12/11/2024 1:57 PM EDT Plan of Treatment Upcoming Encounters Date Type Department Care Team (Late st Contact Info) Description 01/17/2025 11:00 AM EDT Clinical Support [facility] [address] [place] [address] Evelina Pimentel, WILBER [address] [place] [address] Health Maintenance Due Date Last Done Comments [...] Prophylaxis 02/15/2021 08/16/2020 Dental X-Ray: Bitewings 06/11/2023 06/10/20, 09/25/2020, 07/30/2020 Dental X-Ray: Full Mouth 07/31/2023 07/30/2020 HPV/Cotest 10/24/2024 10/24/2019 Depression Screening 03/08/2025 03/08/2024, 03/08/20 24 Mammogram 04/24/2025 04/24/2024, 04/3 , 11/21/2019 SDOH Screening 06/02/2025 06/02/2024 Tobacco Screening 12/11/2025 12/11/2024 Cervical Cancer Screening 03/08/2026 Pap Smear 03/08/2026 [...] 5 Years) and At-Risk Patients (6 to 49) Years) Aged Out No longer eligible based on patient's age to complete this topic RSV under 20 months Aged Out No longe r eligible based on patient's age to complete this topic Rotavirus Vaccines Aged Out No longer eligible based on patient's age to complete this topic Procedures Procedure Name Priority Date/Time Associated Diagnosis Comments POCT VICTOR MANUEL-14 URINE DRUG SCREEN Routine 10/19/2024 11:08 AM EST Chronic left-sided low back pain, unspecified [...] ADULT Routine 08/16/2020 1 2:00 AM EST INTRAORAL - COMPLETE SERIES OF RADIOGRAPHIC IMAGES Routine 07/30/2020 12:00 AM EST COMPREHENSIVE ORAL EVALUATION - NEW OR ESTABLISHED PATIENT Routine 07/30/2020 12:00 AM EST ZZZ HISTORICAL HPV MRNA E6/E7 Routine 10/24/2019 3:31 PM EST from Last 3 Months or Most Recently Relevant to Health Maintenance Results * POCT VICTOR MANUEL-14 Urine Drug Screen (10/19/2024 11:08 AM EST) THC Positive Benzodiazepines Screen, Urine Positive TCA, Urine Positive Oxycodone Screen, Urine Positive Urine Urine specimen obtained by clean catch procedure / Unknown 10/19/2024 11:08 AM EST Narrative Evelina Pimentel RN - 10/19/2024 11:08 AM EST Lot# [id number] Exp: 08-19-25 us Clare Mo MD POINT OF CARE TEST ENTER/ED IT ORDERABLES Final Result * BI Mammogram Screening Tomosynthesis Bilateral (04/24/2024 2:00 PM EDT) Anatomical Region Laterality Modality Breast Bilateral Mammography 04/24/2024 2:00 PM EDT Narrative 05/22/2024 4:31 PM EDT ? [facility] [place] ? [address] ?[place] [address] ? Mammography Report ? Signed ? Patient: Macedo Gongora,May ?MR#: [id number] ?? [id number] ? : 1980 ?Acct:[id number] ? Age/Sex: 43 / F ?ADM Date: 04/24/24 ? Loc: HO.MAMMO ? Attending Dr: Clare Mo MD ? Ordering Physician: Jeff William MD ?Results: 1Negativ ?? e ? Date of Service: 04/24/24 ?Follow Up: 1 Year From Orig ?? inal Mammogram ? Procedure(s): MM tomosynthesis screening BI ?? Accession Number(s): [id number] ? cc: Clare Mo MD; Jeff William [...] DD/ 1400 ? TD/TT: 04/24/24 1415 ? Entry Operator: ? Procedure Note James Pitts - 05/22/2024 [facility] [address] [place], [place] [address] Mammography Report Signed Patient: Missy Beckwithleighton#: [id number] : 1980Acct:[id number] Age/Sex: 43 / FADM Date: 04/24/24 Loc: HO.MAMMO Attending Dr: Clare Mo MD Ordering Physician: Jeff William MDResults: 1Negativ e Date of Service: 04/24/24Follow Up: 1 Year From [facility] Mammogram Procedure(s): MM tomosynthesis screening BI Accession Number(s): [id number] cc: Clare Mo MD; Jeff William MD [...] Isabel Morgan MD 05/22/2024 04:29 PM EDT Dictated By: Isabel Morgan MD Signed By: <Electronically signed by Isabel Morgan MD in OV> 05/22/24 1629 DD/ 1400 TD/TT: 04/24/24 1415 Entry Operator: [facility] External Provider IMG BI PROCEDURES Final Result * Pap Smear (03/08/2023 12:18 PM EDT) 03/08/2023 12:1 8 PM EDT 03/10/2023 8:55 AM EDT Narrative [facility] - 03/27/2023 3:23 PM EDT ----- ------- Name: Remington MackenzieangélicaMay ?Age/Sex: 42/F ? : 1980 Unit#: [id number] ?? Attend Dr: Jeff William MD ?Re03/08/23 ?Status: DEP REF ? Location: HO.LNP ?Disch: ? ----- ------- SPEC : [id number] ? RECD: 03/10/23 ? STATUS: ??SOUT ? REQ NUM: [id number] ? BRANDON: 03/08/23-1217 ? SUBM DR: Jeff William MD ? ENTERED: ??03/10/23 ?SP TYPE: Pap Smr ?OTHR : Clare Mo MD ? ORDERED: ??Pap Smear [...] 66, 68) ? HPV testing performed by [employer], [place], [place]. ??See reference laboratory ?? portion of the EMR for entire report. ?Clinical Information LMP: 03/05/23 Previous PAP test: Unknown date/findings ? Material Received ?? ThinPrep-Cervical Copies To: ?? Clare Mo MD ?? [address] ?? [place] [address] ? eJff William MD ?? [address] [place] [address] [facility] [address] ?? [place] [address] ?? [phone] ----- ------- Signed (signature on file) Alondra A Tyrell 03/27/23 1523 ? ----- ------- ? END OF REPORT ? us [facility] External Provider LAB CYT OLOGY ORDERABLES Final Result [facility] [address] [place] [phone] * LIPID PANEL, STANDARD (07/04/2021 9:32 AM EDT) [facility] Signature Chol/HDLC Ratio 2.8 <5.0 (calc) [facility] Cholesterol, Total 162 <200 mg/dL [facility] HDL Cholesterol 57 > OR = 50 mg/dL [facility] LDL Cholesterol 84 mg/dL (calc) [facility] Comment: Reference range: <100 ?? [...] ?? Panda SEAMAN et al. NALLELY. 2013;310(19): 6679-2846 ?? (http://education.Socitive/faq/NHJ833) Non-HDL Cholesterol 105 <130 mg/dL (calc) [facility] Comment: For patients with diabetes plus 1 major ASCVD risk ?? factor, treating to a non-HDL-C goal of <100 mg/dL ?? (LDL-C of <70 mg/dL) is considered a therapeutic ?? option. Triglycerides 115 <150 mg/dL [facility] 07/04/2021 9:32 AM EDT us Clare Mo MD LAB BLOOD ORDERABLES Final Result Performing Organization Address [facility]/ZIP Co de Phone Number [facility] [address] * HPV mRNA E6/E7 (10/24/2019 3:31 PM EST) HPV mRNA E6/E7 Not Detected NOT DETECTED [facility] Comment: This test was performed using the APTIMA(R) HPV Assay ([employer] This assay detects E6/E7 viral messenger RNA (mRNA) from 14 high-risk HPV types (16,18,31,33,35,39,45,51, 52,56,58,59,66,68). For additional information please refer to: http://education.icix/faq/UQM961a6 (This link is being provided for informational/ educational purposes only.) The analytical performance characteristics of this assay have been determined by [employer] [place], [place]. The modifications have not been cleared or approved by the FDA. This assay has been validated pursuant to the CLIA regulations and is used for clinical purposes. Test Performed by [facility] [employer] [facility], [address] [place] [address] Jalen Hart M.D., Ph.D., Director of Laboratories , CLIA [id number] Please note: ??Effective 05/25/2016, HPV testing will be performed using [employer] APTIMA test which targets mRNA. Detecting mRNA instead of DNA, as in older methods, offers significant improvements in specificity. 10/24/2019 3:31 PM EST us Camille RODRIGUEZM HISTORICAL/NON ORDERABLE LABS Final Result Performing Organization Address [facility] Co de Phone Number [facility] [address] from Last 3 Months or Most Recently Relevant to Health Maintenance Insurance [facility] STANDARD [facility] [place] [address] [place] [address] Care Teams Security Threat Analyst Relationship Specialty Start Date End Date Clare Mo MD [address] [place] [address] [place] [address] PCP - General Internal Medicine 03/17/17
--- OUTSIDE RECORDS SUMMARY | 2024-12-11 17:12 | XMS_ITS | Encounter Summary ---
Author Organization [facility] Address [address] [place] [address] [place] [address] Care Team Providers Care Gerontology Aide Name Role Phone Clare Mo MD Primary Care Provider +1- [phone] Reason for Visit * Reason Comments Med Refill Encounter Details Date Type Department Care Team ([facility] Contact Info) Description 02/11/2023 Refill [facility] [address] [place] [address] Clare Mo MD [address] [place] [address] Chronic low back pain with sciatica, sciatica [...] Encounters Date Type Department Care Team ([facility] Contact Info) Description 01/17/2025 11:00 AM EDT Clinical Support [facility] [address] [place] [address] Evelina Pimentel, WILBER [address] [place] [address] documented as of this encounter Visit Diagnoses Diagnosis Chronic low back pain with sciatica, sciatica laterality unspecified, unspecified back pain laterality documented in this encounter Care Teams Gerontology Aide Relationship Specialty Start Date End Date Clare Mo MD [address] [place] [address] PCP - General Internal Medicine 03/17/17 documented as of this encounter
--- OUTSIDE RECORDS SUMMARY | 2024-12-11 17:12 | XMS_ITS | Encounter Summary ---
Author Organization [employer] Address [address] [facility] 7 [place] [address] Care Team Providers Care Structural Metal Fabricator Apprentice Name Role Phone Clare Mo MD Primary Care Provider +1- [phone] Reason for Visit * Reason Onset Date Comments call back 02/12/2023 Encounter Details Date Type Department Care Team ([facility] Contact Info) Description 02/12/2023 Telephone [facility] [address] [place] [address] Clare Mo MD [address] [place] [address] call back Social History Tobacco Use Types [...] PCP cancelled script. Please contact pt at [phone] documented in this encounter Plan of Treatment Upcoming Encounters Date Type Department Care Team ([facility] Contact Info) Description 01/17/2025 11:00 AM EDT Clinical Support [facility] [address] [place] [address] Evelina Pimentel RN [address] [place] [address] documented as of this encounter Visit Diagnoses Not on filedocumented in this encounter Care Teams Structural Metal Fabricator Apprentice Relationship Specialty Start Date End Date Clare Mo MD [address] [place] [address] PCP - General Internal Medicine 03/17/17 documented as of this encounter
--- OUTSIDE RECORDS SUMMARY | 2024-12-11 17:12 | XMS_ITS | Encounter Summary ---
Author Organization [employer] Address [address] [facility] 7 [place] [address] Care Team Providers Care Glost Kiln Placer Name Role Phone Clare Mo MD Primary Care Provider +1- [phone] Reason for Visit * Reason Onset Date Comments Medication Question 11/29/2023 Encounter Details Date Type Department Care Team ([facility] Contact Info) Description 11/29/2023 Telephone [facility] [address] [place] [address] Clare Mo MD [address] [place], [place] [phone] Medication Question Social History Tobacco Use Types [...] information was provided. Please contact pt at [phone]. documented in this encounter Plan of Treatment Upcoming Encounters Date Type Department Care Team ([facility] st Contact Info) Description 01/17/2025 11:00 AM EDT Clinical Support [facility] [address] [place] [address] Evelina Pimentel, WILBER [address] [place] [address] documented as of this encounter Visit Diagnoses Not on filedocumented in this encounter Care Teams Glost Kiln Placer Relationship Specialty Start Date End Date Clare Mo MD [address] [place] [address] PCP - General Internal Medicine 03/17/17 documented as of this encounter
--- OUTSIDE RECORDS SUMMARY | 2024-12-11 17:12 | XMS_ITS | Encounter Summary ---
Author Organization [employer] Address [address] [facility] 7 [place] [address] Care Team Providers Care Cook Station Name Role Phone Clare Mo MD Primary Care Provider +1- [phone] Reason for Visit * Reason Comments Multiple joint pains Encounter Details Date Type Department Care Team ([facility] st Contact Info) Description 12/11/2024 2:00 PM EDT Office Visit [facility] [address] [place] [address] Clare Mo MD [address] [place] [address] Neck pain (Primary Dx); Acute left ankle pain; Low back pain at multiple sites; Acute pain of both shoulders Social History Tobacco Use Types Packs/Day Years [...] AM EDT documented as of this encounter Last Filed [...] Mass Index 33.12 12/11/2024 1:57 PM EDT documented in this encounter Progress Notes * Clare Mo MD - 12/11/2024 2:00 PM EDT Subjective Patient ID: May Macedo is a 44 y.o. female who presents for Multiple joint pains. HPI Patient with history of chronic pain on chronic opioid treatment here complaining of neck pain, bilateral shoulder pain, low back pain, left ankle pain after fall. She reports that she was in [place] because of the family emergency when she had to run out of the house that she was in because the alarm went off. While trying to go down the stairs she slipped over a rug and fell on her back. No history of palpitations, chest pain or other symptoms before before the fall who appeared to be a mechanical fall. She has also lost all her medications including her oxycodone and muscle relaxer. She is unsure of how she lost them. She did not seek medical advice after the fall that happened last Wednesday, 3 days ago. Patient Active Problem List Diagnosis Chronic low back pain Depressed bipolar I disorder ([facility]/HCC) Migraine Mood disorder (CMS/[facility]) Panic disorder Posttraumatic stress disorder Vitamin D deficiency Lump of skin of left upper extremity Vague bodily discomfort Dizzy spells Obesity Urge incontinence of urine Current Outpatient Medications on File Prior to Visit Medication Sig Dispense Refill Acetaminophen 500 MG capsule take 2 capsule by oral route every 8 hours as needed albuterol (ProAir HFA) 108 (90 Base) MCG/ACT inhaler inhale 2 puff by inhalation route every 4 - 6 hours as needed ALPRAZolam (Xanax) 1 MG tablet TAKE ONE TABLET BY MOUTH EVERY DAY NEEDED FOR ANXIETY FOR UP TO 15 DAYS 25 tablet 0 cholecalciferol (Vitamin D-3) 25 MCG (1000 UT) tablet Take 1 tablet (25 mcg) by mouth in the morning. 60 tablet 11 cyclobenzaprine (Flexeril) 10 MG tablet Take 1 tablet (10 mg) by mouth 2 times daily. 60 tablet 3 Diclofenac Sodium 1 % gel To use on the affected area 3 times a day 100 g 2 Elastic Bandages & Supports (Elbow Strap Left/Right) misc To wear daily Elastic Bandages & Supports (Knee Brace) misc Knee brace large/xlarge To use daily Elastic Bandages & Supports (Lumbar Back Brace/Support Pad) misc To wear daily as needed. 1 each 0 Elastic Bandages & Supports (Wrist Brace Deluxe) misc Bilateral hand pain. Please provide a brace that can cover the hands as per pt's request. 2 each 0 Elastic Bandages & Supports (Wrist Brace Deluxe) misc Please provide a brace that can cover thehands as per pt's request. 2 each 0 gabapentin (Neurontin) 800 MG tablet TAKE ONE TABLET BY MOUTH THREE TIMES DAILY 90 tablet 5 Heating Pads pads To use daily Misc. Devices (Cane) misc Use 1 by To Assist with ambulation route Misc. Devices (Rollator Ultra-Light) misc To use daily naloxone (Narcan) 4 mg/0.1 mL nasal spray spray 0.1 milliliter by intranasal route in 1 nostril mayrepeat dose every 2-3 minutes as needed alternating nostrils with each dose ondansetron (Zofran) 4 MG tablet take 2 tablet by oral route 2 times every day oxyCODONE-acetaminophen (Percocet) 10-325 MG tablet Take 1 tablet by mouth every 6 (six) hours if needed for severe pain. 100 tablet 0 pregabalin (Lyrica) 200 MG capsule Take 1 capsule (200 mg) by mouth 2 times daily. 60 capsule 0 Rhubarb (Estroven Complete) 4 MG tablet 1 tab once a day 30 tablet 3 [DISCONTINUED] ALPRAZolam (Xanax) 1 MG tablet TAKE ONE TABLET BY MOUTH EVERY DAY NEEDED FOR ANXIETY FOR UP TO 15 DAYS Do not start before November 13, 2024. 25 tablet 0 [DISCONTINUED] oxyCODONE-acetaminophen (Percocet) 10-325 MG tablet Take 1 tablet by mouth every 6 (six) hours if needed for severe pain. Do not start before December 07, 2024. 100 tablet 0 No current facility-administered medications on file prior to visit. Review of Systems Constitutional: Negative for activity change, appetite change and chills. Respiratory: Negative for cough, choking and chest tightness. Musculoskeletal: Positive for back pain, neck pain and neck stiffness. Objective BP 106/56 (BP Location: Left arm, Patient Position: Sitting, BP Cuff Size: Adult long) Pulse 81 Temp 97.9 ??F (36.6 ??C) (Oral) Resp 20 Ht 5' 4.17 (1.63 m) Wt 194 lb (88 kg) SpO2 98% BMI 33.12 kg/m?? Physical Exam Constitutional: General: She is not in acute distress. Appearance: Normal appearance. She is obese. She is not ill-appearing or diaphoretic. Pulmonary: Effort: Pulmonary effort is normal. Musculoskeletal: Cervical back: Spasms and tenderness present. Decreased range of motion. Lumbar back: Spasms and tenderness present. Neurological: Mental Status: She is alert. Assessment/Plan Diagnoses and all orders for this visit: Neck pain Comments: Heat therapy Meds as prescribed Pt is to fill out a Police report Orders: - XR CERVICAL SPINE 3V; Future - tiZANidine (Zanaflex) 4 MG tablet; Take 1 tablet (4 mg) by mouth every 6 (six) hours if needed for muscle spasms for up to 10 days. - ketorolac (Toradol) injection 30 mg - HYDROcodone-acetaminophen (Mobile) 5-325 MG tablet; Take 1 tablet by mouth every 6 (six) hours if needed for severe pain for up to 5 days. - Drug Monitoring, Opiates Expanded, Quantitative, Urine; Future Acute left ankle pain Comments: xray ordered Heat therapy Meds as prescribed Pt will be contacted w/ results. Orders: - XR Ankle 3+ Views Left; Future - HYDROcodone-acetaminophen (Mobile) 5-325 MG tablet; Take 1 tablet by mouth every 6 (six) hours if needed for severe pain for up to 5 days. - Drug Monitoring, Opiates Expanded, Quantitative, Urine; Future Low back pain at multiple sites Comments: as above Orders: - XR Lumbar Spine 2-3 Views; Future - HYDROcodone-acetaminophen (Mobile) 5-325 MG tablet; Take 1 tablet by mouth every 6 (six) hours if needed for severe pain for up to 5 days. Acute pain of both shoulders Comments: as above PT referral if there is no fracture on the xrays. Orders: - XR Shoulder 2+ Views Left; Future - XR Shoulder 2+ Views Right; Future - HYDROcodone-acetaminophen (Mobile) 5-325 MG tablet; Take 1 tablet by mouth every 6 (six) hours if needed for severe pain for up to 5 days. documented in this encounter Plan of Treatment Upcoming Encounters Date Type Department Care Team (Late st Contact Info) Description 01/17/2025 11:00 AM EDT Clinical Support [facility] [address] [place] [address] Evelina Pimentel, WILBER [address] [place] [address] Scheduled Orders Name Type Priority Associated Diagnoses Orde r Schedule XR CERVICAL SPINE 3V Imaging Routine Neck pain Expected: 12/11/2024, Expires: 12/11/2025 XR Lumbar Spine 2-3 Views Imaging Routine Low back pain at multiple sites Expected: 12/11/2024, Expires: 12/11/2025 XR Ankle 3+ Views Left Imaging Routine Acute left ankle pain Expected: 12/11/2024, Expires: 12/11/2025 XR Shoulder 2+ Views Left Imaging Routine Acute pain of both shoulders Expected: 12/11/2024, Expires: 12/11/2025 XR Shoulder 2+ Views Right Imaging Routine Acute pain of both shoulders Expected: 12/11/2024, Expires: 12/11/2025 Drug Monitoring, Panel 1, Screen, Urine Lab Routine Neck pain Acute left ankle pain Expected: 12/11/2024 (Approximate), Expires: 12/11/2025 documented as of this encounter Visit Diagnoses Diagnosis Neck pain- Primary Cervicalgia Acute left ankle pain Low back pain at multiple sites Acute pain of both shoulders documented in this encounter Administered Medications Inactive Administered Medications - up to 3 most recent administrations Medication Order MAR Action Action Date Dose Rate Site ketorolac (Toradol) injection 30 mg 30 mg, Intramuscular, Once, On 12/11/24 at 1430, For 1 doseIndications:Neck pain Given 12/11/2024 2:30 PM EDT 30 mg Right Deltoid documented in this encounter Care Teams [place] Relationship Specialty Start Date End Date Clare Mo MD [address] [place] [address] PCP - General Internal Medicine 03/17/17 documented as of this encounter
--- OUTSIDE RECORDS SUMMARY | 2024-12-11 17:12 | XMS_ITS | Encounter Summary ---
Author Organization [employer] Address [address] [place] [address] [place] [address] Care Team Providers Care Ship Construction Teacher Name Role Phone Clare Mo MD Primary Care Provider +1- [phone] Reason for Visit * Reason Comments Med Refill Encounter Details Date Type Department Care Team ([facility] Contact Info) Description 02/24/2023 Refill [facility] [address] [place] [address] Clare Mo MD [address] [place] [address] Anxiety; Chronic low back pain with sciatica, [...] Encounters Date Type Department Care Team ([facility] Contact Info) Description 01/17/2025 11:00 AM EDT Clinical Support [facility] [address] [place] [address] Evelina Pimentel, WILBER [address] [place] [address] documented as of this encounter Visit Diagnoses Diagnosis Anxiety Anxiety state, unspecified Chronic low back pain with sciatica, sciatica laterality unspecified, unspecified back pain laterality documented in this encounter Care Teams Ship Construction Teacher Relationship Specialty Start Date End Date Clare Mo MD [address] [place] [address] PCP - General Internal Medicine 03/17/17 documented as of this encounter
--- OUTSIDE RECORDS SUMMARY | 2024-12-11 17:12 | XMS_ITS | Encounter Summary ---
Author Organization [employer] Address [address] [facility] 7t [place] [address] Care Team Providers Care Data Analyst Etl Developer Name Role Phone Clare Mo MD Primary Care Provider +1- [phone] Encounter Details Date Type Department Care Team ([facility] st Contact Info) Description 06/20/2024 Orders Only [facility] [address] [place] [address] Clare Mo MD [address] [place] [address] Chronic low back pain with sciatica, sciatica [...] the past 12 months, has t he [facility], gas, oil or water company threatened to [...] [facility] [address] [place] [address] Evelina Pimentle, WILBER [address] [place] [address] documented as of this encounter Visit Diagnoses Diagnosis Chronic low back pain with sciatica, sciatica laterality unspecified, unspecified back pain laterality Anxiety Anxiety state, unspecified documented in this encounter Care Teams Data Analyst Etl Developer Relationship Specialty Start Date End Date Clare Mo MD [address] [place] [address] PCP - General Internal Medicine 03/17/17 documented as of this encounter
--- OUTSIDE RECORDS SUMMARY | 2024-12-11 17:12 | XMS_ITS | Encounter Summary ---
Author Organization [employer] Address [address] [facility] 7 [place] [address] Care Team Providers Care Back Roller Name Role Phone Clare Mo MD Primary Care Provider +1- [phone] Reason for Visit * Reason Onset Date Comments Call Back Request 11/30/2023 Encounter Details Date Type Department Care Team ([facility] Contact Info) Description 11/30/2023 Telephone [facility] [address] [place] [address] Clare Mo MD [address] [place] [address] Call Back Request Social History Tobacco Use [...] Description 01/17/2025 11:00 AM EDT Clinical Support [facility] [address] [place] [address] Evelina Pimentel RN [address] [place] [address] documented as of this encounter Visit Diagnoses Not on filedocumented in this encounter Care Teams Back Roller Relationship Specialty Start Date End Date Clare Mo MD [address] [place] [address] PCP - General Internal Medicine 03/17/17 documented as of this encounter
--- OUTSIDE RECORDS SUMMARY | 2024-12-11 17:12 | XMS_ITS | Encounter Summary ---
Author Organization [employer] Address 75 [facility] 7 [place] [address] Care Team Providers Care Detective Captain Name Role Phone Clare Mo MD Primary Care Provider +1- [phone] Reason for Visit * Reason Onset Date Comments Med Refill 07/10/2024 Encounter Details Date Type Department Care Team ([facility] st Contact Info) Description 07/10/2024 Telephone [facility] [address] [place] [address] Clare Mo MD [address] [place] [address] Med Refill Social History Tobacco Use Types [...] 1 MG tablet To be sent to: [facility] pharmacy documented in this encounter Plan of Treatment Upcoming Encounters Date Type Department Care Team (Late st Contact Info) Description 01/17/2025 11:00 AM EDT Clinical Support [facility] [address] [place] [address] Evelina Pimentel, WILBER [address] [place] [address] documented as of this encounter Visit Diagnoses Not on filedocumented in this encounter Care Teams Detective Captain Relationship Specialty Start Date End Date Clare Mo MD [address] [place] [address] PCP - General Internal Medicine 03/17/17 documented as of this encounter
--- OUTSIDE RECORDS SUMMARY | 2024-12-11 17:12 | XMS_ITS | Encounter Summary ---
Author Organization [employer] Address [address] [facility] 7 [place] [address] Care Team Providers Care Forming Department Supervisor Name Role Phone Clare Mo MD Primary Care Provider +1- [phone] Reason for Visit * Reason Onset Date Comments Med Refill 07/26/2023 Encounter Details Date Type Department Care Team ([facility] st Contact Info) Description 07/26/2023 Telephone [facility] [address] [place] [address] Clare Mo MD [address] [place], [place] [id number] Med Refill Social History Tobacco Use Types [...] 11:00 AM EDT Clinical Support [facility] P[facility] [address] [place] [address] Evelina Pimentel, WILBER [address] [place] [address] documented as of this encounter Visit Diagnoses Not on filedocumented in this encounter Care Teams Forming Department Supervisor Relationship Specialty Start Date End Date Clare Mo MD [address] [place] [address] PCP - General Internal Medicine 03/17/17 documented as of this encounter
--- OUTSIDE RECORDS SUMMARY | 2024-12-11 17:12 | XMS_ITS ---
Author Organization [employer] Address [address] [place] [address] [place] [address] Care Team Providers Care Repair Supervisor Name Role Phone Clare Mo MD Primary Care Provider +1- [phone] INVOICE MACHINE OPERATOR Status:Enrolled (Active) Start date:01/06/2023 Enrollment date:01/06/2023 Case Team Name Relationship Phone Evelina Piemntel RN Registered Nurse(Responsible S taff) Continued Care and Services Coordination
--- OUTSIDE RECORDS SUMMARY | 2024-12-11 17:12 | XMS_ITS | Encounter Summary ---
Author Organization [employer] [facility] Address [address] [place] [address] [place] [address] Care Team Providers Care Micropaleontologist Name Role Phone Clare Mo MD Primary Care Provider +1- [phone] Encounter Details Date Type Department Care Team (Latest Contact Info) Description 08/16/2020 Abstract [facility] CONVERSIONS Dental, Provider, DDS Social History [...] Upcoming Encounters Date Type Department Care Team ([facility] st Contact Info) Description 01/17/2025 11:00 AM EDT Clinical Support [facility] [address] [place] [address] Evelina Pimentel RN [address] [place] [address] documented as of this encounter Visit Diagnoses Not on filedocumented in this encounter Care Teams Micropaleontologist Relationship Specialty Start Date End Date Clare Mo MD [address] [place] [address] PCP - General Internal Medicine 03/17/17 documented as of this encounter
--- OUTSIDE RECORDS SUMMARY | 2024-12-11 17:12 | XMS_ITS | Encounter Summary ---
Author Organization [employer] Address [address] [facility] 7 [place] [address] Care Team Providers Care Gasoline Engine Inspector Name Role Phone Clare Mo MD Primary Care Provider +1- [phone] Reason for Visit * Reason Comments Med Refill Encounter Details Date Type Department Care Team ([facility] st Contact Info) Description 10/11/2023 Refill [facility] [address] [place] [address] Clare Mo MD [address] [place], [place] [id number] Chronic low back pain, unspecified back pain [...] t he electric, gas, oil or water [id number] threatened to shut off services in your home? No 06/28/2023 Comments Unknown Sex and Gender Information Value Date Recorded Sex Assigned at Female 2022 10:17 AM EDT Legal Sex Female 10:17 AM EDT Gender Identity Female 2022 10:17 AM EDT Sexual Orientation Straight 2022 10 :17 AM EDT documented as of this encounter Plan of Treatment Upcoming Encounters Date Type Department Care Team ([facility] st Contact Info) Description 01/17/2025 11:00 AM EDT Clinical Support [facility] MED & PED[facility] [address] [place] [address] Evelina Pimentel RN [address] [place] [address] documented as of this encounter Visit Diagnoses Diagnosis Chronic low back pain, unspecified back pain laterality, unspecified whether sciatica present documented in this encounter Care Teams Gasoline Engine Inspector Relationship Specialty Start Date End Date Clare Mo MD [address] [place] [address] PCP - General Internal Medicine 03/17/17 documented as of this encounter
--- OUTSIDE RECORDS SUMMARY | 2024-12-11 17:12 | XMS_ITS | Encounter Summary ---
Author Organization [employer] Address [address] [facility] 7 [place] [address] Care Team Providers Care Impregnator Name Role Phone Clare Mo MD Primary Care Provider +1- [phone] Reason for Visit * Reason Onset Date Comments Medication Question 12/06/2024 Encounter Details Date Type Department Care Team ([facility] [place] Contact Info) Description 12/06/2024 Telephone [facility]S [address] [place] [address] Clare Mo MD [address] [place] [address] Medication Question Social History Tobacco Use Types [...] encounter Miscellaneous Notes * Telephone Encounter - Noni Marie - 12/11/2024 9:17 AM EDT TC from pt requesting a call back . would like to speak to Dahianara Bernal or someone who can help get her medications prescribed. had a family emergency and while she was staying at a hotel alarm went of and she believes she tossed the incorrect bag to the trash. Informs is unable to find any of her medication anywhere and currently has no medication at this time. * Telephone Encounter - Little Mosqueda - 12/11/2024 8:07 AM EDT Tc from pt requesting a call back regarding prior message. * Telephone Encounter - Noni Marie - 12/06/2024 10:59 AM EDT Tc from pt calling to inform has a family emergency and has to leave today. Pt states went to product picker medication oxy before she leaves bur can't due to dispense date being for tomorrow 12/07/24. documented in this encounter Plan of Treatment Upcoming Encounters Date Type Department Care Team (Late st Contact Info) Description 01/17/2025 11:00 AM EDT Clinical Support [facility] MED & PEDS [address] [place] [address] Evelina Pimentel, WILBER [address] [place] [address] documented as of this encounter Visit Diagnoses Diagnosis Chronic low back pain with sciatica, sciatica laterality unspecified, unspecified back pain laterality documented in this encounter Care Teams Impregnator Relationship Specialty Start Date End Date Clare Mo MD [address] [place] [address] PCP - General Internal Medicine 03/17/17 documented as of this encounter
--- OUTSIDE RECORDS SUMMARY | 2024-12-11 17:12 | XMS_ITS | Encounter Summary ---
Author Organization [employer] Address 75 [facility] 7 [place] [address] Care Team Providers Care Car Shakeout Operator Name Role Phone Clare Mo MD Primary Care Provider +1- [phone] Reason for Visit * Reason Onset Date Comments Med Refill 12/07/2024 Encounter Details Date Type Department Care Team ([facility] st Contact Info) Description 12/07/2024 Refill [facility] [address] [place] [address] Clare Mo MD [address] [place] [address] Chronic low back pain with sciatica, sciatica [...] encounter Miscellaneous Notes * Telephone Encounter - Evelina Pimentel RN - 12/11/2024 12:28 PM EDT TC to pt regarding message below. Pt advised she will need a police report in order to get an earlyrefill of Percocet. (med filled 12/07/24 qty 100). Pt upset, but verbalized understanding. documented in this encounter Plan of Treatment Upcoming Encounters Date Type Department Care Team (Late st Contact Info) Description 01/17/2025 11:00 AM EDT Clinical Support [facility] [address] [place] [address] Evelina Pimentel RN [address] [place] [address] documented as of this encounter Visit Diagnoses Diagnosis Chronic low back pain with sciatica, sciatica laterality unspecified, unspecified back pain laterality Anxiety Anxiety state, unspecified documented in this encounter Care Teams Car Shakeout Operator Relationship Specialty Start Date End Date Clare Mo MD [address] [place] [address] PCP - General Internal Medicine 03/17/17 documented as of this encounter
== END 2024-12-11 15:13 | disposition home or self-care (01) ==
LOC: HO.CHCLDS 15:12
PROVIDERS: Visit Provider Internal Medicine
DX: Z13.89 Encounter for screening for other disorder (principal)

== ENCOUNTER 2024-12-13 12:49 | Outpatient (REF) | payer MEDICARE, MEDICAID, SELFPAY ==
[2024-12-13 14:35] LABS: Amphetamine Screen Urine Not Detected (Not Detect); Barbiturates, Urine Not Detected (Not Detect); Benzodiazepines Screen Urine POSITIVE (Not Detect); Buprenorphine Scr Not Detected (Not Detect); Cannabinoid Screen Urine POSITIVE (Not Detect); Cocaine Screen Urine Not Detected (Not Detect); Fentanyl, urine Not Detected (Not Detect); Methadone Screen, Urine Not Detected (Not Detect); Opiate Screen Urine POSITIVE (Not Detect); Oxycodone Screen Urine Not Detected (Not Detect); Phencyclidine Screen Urine Not Detected (Not Detect)
--- OUTSIDE RECORDS SUMMARY | 2024-12-13 15:22 | XMS_ITS | Clinical Summary ---
Author Organization [facility] Address [address] [place] [address] Phone Care Team Providers Care Field Interviewer Name Role Phone Clare Mo MD Primary Care Provider +1 -[phone] Allergies No known active allergies Medications gabapentin [...] had x-rays of the hip performed at [facility] on 08/01/24. They revealed calcific tendinitis [...] arms overhead, she had to ask the reactor technician to help her move her arms [...] year at [facility] veal degenerative changes most significant at [...] told her she likely has fibromyalgia. Saw street sweeper operator, was started on vitamin D, magnesium, vitamin [...] lumbar cortisone injections back in 2020 at [facility]. She has been walking with a walker. Ms. Macedo describes left low back, buttock, hip and foot pain. She is having to walk with a walker, feels her balance is poor. We can check updated lumbar spine MRI with and without contrast to rule out recurrent disc herniation/nerve root compression. She would also like to be referred back to [facility] to see if they would offer left SI joint injection, she has tenderness over the SI joint, pain in the SI joint region with external hip rotation. She will go for the hip x-rays (already ordered by PCP) this coming week. We will follow-up with her after imaging is complete. Encounters Date Type Department Care Team Description 10/17/2024 2:00 PM EST Office Visit [address] [address] Keli Suggs MD Cervical spondylosis (Primary Dx) 09/19/2024 2:30 PM EST Office Visit [address] [address] Juan J Hodges PA Left hip pain (Primary Dx); Cervical spondylosis 09/14/[address] [address] Keli Suggs MD Advice Only [...] Insurance MEDICARE MEDICAID - [place] Care Teams Field Interviewer Relationship Specialty Start Date End Date Clare Mo MD [address] [place] [address] PCP - General 01/11/24
--- OUTSIDE RECORDS SUMMARY | 2024-12-13 15:22 | XMS_ITS | Encounter Summary ---
Author Organization [employer] Address [address] [facility] [place] [address] Care Team Providers Care Structural Steel Trades Worker Name Role Phone Clare Mo MD Primary Care Provider +1- [phone] Reason for Visit * Reason Onset Date Comments Med Refill 03/19/2023 Encounter Details Date Type Department Care Team ([facility] Contact Info) Description 03/19/2023 Telephone [facility] CHC MED & PEDS [address] [place] [address] Clare Mo MD 505 [place] [address] Med Refill Social History Tobacco Use Types [...] Upcoming Encounters Date Type Department Care Team ([facility] st Contact Info) Description 01/17/2025 11:00 AM EDT Clinical Support [facility] MED & PEDS [address] [place] [address] Evelina Pimentel, RN 505 [place] [address] documented as of this encounter Visit Diagnoses Not on filedocumented in this encounter Care Teams Structural Steel Trades Worker Relationship Specialty Start Date End Date Clare Mo MD [address] [place] [address] PCP - General Internal Medicine 03/17/17 documented as of this encounter
--- OUTSIDE RECORDS SUMMARY | 2024-12-13 15:22 | XMS_ITS | Encounter Summary ---
Author Organization [employer] Address 75 [facility] 7 [place] [address] Care Team Providers Care School Crossing Guard Supervisor Name Role Phone Clare Mo MD Primary Care Provider +1- [phone] Reason for Visit * Reason Onset Date Comments Med Refill 11/28/2024 Encounter Details Date Type Department Care Team ([facility] st Contact Info) Description 11/28/2024 Telephone [facility] MEDICINE [address] [place] [address] Clare Mo MD 505 [place], [place] [phone] Med Refill Social History Tobacco Use Types [...] 10-325 MG tablet To be sent to: [facility] - [place], [place] - [address] [place] [address] documented in this encounter Plan of Treatment Upcoming Encounters Date Type Department Care Team (Late st Contact Info) Description 01/17/2025 11:00 AM EDT Clinical Support [facility] CHC MED & PEDS [address] [place] [address] Evelina Pimentel, WILBER 505 [place] [address] documented as of this encounter Visit Diagnoses Not on filedocumented in this encounter Care Teams School Crossing Guard Supervisor Relationship Specialty Start Date End Date Clare Mo MD 505 [place] [address] PCP - General Internal Medicine 03/17/17 documented as of this encounter
--- OUTSIDE RECORDS SUMMARY | 2024-12-13 15:22 | XMS_ITS | Encounter Summary ---
Author Organization [employer] Address [address] [place] [address] 7 [place] [address] Care Team Providers Care Asset Liability Analyst Name Role Phone Clare Mo MD Primary Care Provider +1- [phone] Reason for Visit * Reason Onset Date Comments Med Refill 04/02/2023 Medication Question 04/02/2023 Encounter Details Date Type Department Care Team ([facility] st Contact Info) Description 04/02/2023 Telephone [facility] CHC MED & PEDS [address] [place], [place] [phone] Clare Mo MD 505 [place], [place] [phone] Med Refill; Medication Question Social History Tobacco [...] ([facility] st Contact Info) Description 01/17/2025 11:00 AM EDT Clinical Support [facility] MED & PEDS 505 [place] [address] Evelina Pimentel RN 505 [place] [address] documented as of this encounter Visit Diagnoses Not on filedocumented in this encounter Care Teams Asset Liability Analyst Relationship Specialty Start Date End Date Clare Mo MD 505 [place] [address] PCP - General Internal Medicine 03/17/17 documented as of this encounter
--- OUTSIDE RECORDS SUMMARY | 2024-12-13 15:22 | XMS_ITS | Encounter Summary ---
Author Organization [employer] Address [address] [facility] 7 [place] [address] Care Team Providers Care Production Team Manager Name Role Phone Clare Mo MD Primary Care Provider +1- [phone] Reason for Visit * Reason Onset Date Comments Med Refill 03/03/2024 Encounter Details Date Type Department Care Team ([facility] st Contact Info) Description 03/03/2024 Telephone [facility] MEDICINE 230 [place] [address] Clare Mo MD 505 [place] [address] Med Refill Social History Tobacco Use Types [...] as they should both have refills at [facility]. * Telephone Encounter - Ayla Gongora - 03/03/2024 10:18 AM EDT TC from pt requesting medication refill. Medications needing refill : cyclobenzaprine (Flexeril) 10 MG tablet gabapentin (Neurontin) 800 MG tablet To be sent to: [facility] - [place], [place] - [address] [place] [address] documented in this encounter Plan of Treatment Upcoming Encounters Date Type Department Care Team ([facility] st Contact Info) Description 01/17/2025 11:00 AM EDT Clinical Support [facility] MED & PEDS 505 [place] [address] Evelina Pimentel, WILBER 505 [place] [address] documented as of this encounter Visit Diagnoses Diagnosis Anxiety Anxiety state, unspecified Chronic low back pain with sciatica, sciatica laterality unspecified, unspecified back pain laterality documented in this encounter Care Teams Production Team Manager Relationship Specialty Start Date End Date Clare Mo MD 505 [place] [address] PCP - General Internal Medicine 03/17/17 documented as of this encounter
--- OUTSIDE RECORDS SUMMARY | 2024-12-13 15:22 | XMS_ITS | Encounter Summary ---
Author Organization [employer] Address [address] [facility] 7 [place] [address] Care Team Providers Care Warp Tension Tester Name Role Phone Clare Mo MD Primary Care Provider +1- [phone] Reason for Visit * Reason Comments Med Refill Encounter Details Date Type Department Care Team ([facility] st Contact Info) Description 01/25/2024 Refill [facility] MEDICINE 230 [place] [address] Clare Mo MD 505 [place], [place] [phone] Chronic low back pain with sciatica, sciatica [...] t he electric, gas, oil or water [employer] threatened to shut off services in your [...] 11:00 AM EDT Clinical Support [facility] MED & PEDS 505 [place] [address] Evelina Pimentel, WILBER 505 [place] [address] documented as of this encounter Visit Diagnoses Diagnosis Chronic low back pain with sciatica, sciatica laterality unspecified, unspecified back pain laterality Anxiety Anxiety state, unspecified documented in this encounter Care Teams Warp Tension Tester Relationship Specialty Start Date End Date Clare Mo MD 505 [place] [address] PCP - General Internal Medicine 03/17/17 documented as of this encounter
--- OUTSIDE RECORDS SUMMARY | 2024-12-13 15:22 | XMS_ITS | Encounter Summary ---
Author Organization [employer] Address [address] [facility] 7 [place] [address] Care Team Providers Care Senior Restaurant Manager Name Role Phone Clare Mo MD Primary Care Provider +1- [phone] Reason for Visit * Reason Onset Date Comments call back requested 09/04/2024 Encounter Details Date Type Department Care Team ([facility] Contact Info) Description 09/04/2024 Telephone [facility] MEDICINE 230 [place] [address] Clare Mo MD 505 [place] [address] call back requested Social History Tobacco Use [...] Pt is to speak to Dahiana (ext [phone]) moving forward . documented in this encounter Plan of Treatment Upcoming Encounters Date Type Department Care Team (Late st Contact Info) Description 01/17/2025 11:00 AM EDT Clinical Support [facility] MED & PEDS 505 [place] [address] Evelina Pimentel, WILBER 505 [place] [address] documented as of this encounter Visit Diagnoses Not on filedocumented in this encounter Care Teams Senior Restaurant Manager Relationship Specialty Start Date End Date Clare Mo MD 505 [place] [address] PCP - General Internal Medicine 03/17/17 documented as of this encounter
--- OUTSIDE RECORDS SUMMARY | 2024-12-13 15:22 | XMS_ITS | Encounter Summary ---
Author Organization [employer] Address 75 [facility] 7 [place] [address] Care Team Providers Care Industrial Tractor Driver Name Role Phone Clare Mo MD Primary Care Provider +1- [phone] Reason for Visit * Reason Onset Date Comments Med Refill 12/07/2024 Encounter Details Date Type Department Care Team ([facility] st Contact Info) Description 12/07/2024 Refill [facility] CHC MED & PEDS 505 [place] [address] Clare Mo MD 505 [place] [address] Chronic low back pain with sciatica, sciatica [...] 01/17/2025 11:00 AM EDT Clinical Support [facility] MED & PEDS 505 [place] [address] Evelina Pimentel RN 505 [place] [address] documented as of this encounter Visit Diagnoses Diagnosis Chronic low back pain with sciatica, sciatica laterality unspecified, unspecified back pain laterality Anxiety Anxiety state, unspecified documented in this encounter Care Teams Industrial Tractor Driver Relationship Specialty Start Date End Date Clare Mo MD 505 [place] [address] PCP - General Internal Medicine 03/17/17 documented as of this encounter
--- OUTSIDE RECORDS SUMMARY | 2024-12-13 15:22 | XMS_ITS | Encounter Summary ---
Author Organization [employer] Address [address] [place] [address] [facility] [place] [address] Care Team Providers Care Vending Machine Servicer Name Role Phone Clare Mo MD Primary Care Provider +1- [phone] Reason for Visit * Reason Onset Date Comments Medication Question 03/19/2023 Encounter Details Date Type Department Care Team ([facility] Contact Info) Description 03/19/2023 Telephone [facility] CHC MED & PEDS 505 [place] [address] Clare Mo MD 505 [place] [address] Medication Question Social History Tobacco Use Types [...] increase, pt requested to speak to nurse weld inspector, Dials Supervisor advice to return call after 9:30 where she can be connected to a assistant maintenance manager or nurse, pt agreed to plan. [...] [facility] 505 [place] [address] Evelina Pimentel, RN 505 [place] [address] documented as of this encounter Visit Diagnoses Not on filedocumented in this encounter Care Teams Vending Machine Servicer Relationship Specialty Start Date End Date Clare Mo MD 505 [place] [address] PCP - General Internal Medicine 03/17/17 documented as of this encounter
--- OUTSIDE RECORDS SUMMARY | 2024-12-13 15:22 | XMS_ITS | Encounter Summary ---
Author Organization [employer] Address [address] [place] [address] [place] [address] Care Team Providers Care Blood Bank Laboratory Professional Name Role Phone Clare Mo MD Primary Care Provider +1- [phone] Reason for Visit * Reason Onset Date Comments Med Refill 03/09/2023 Encounter Details Date Type Department Care Team ([facility] Contact Info) Description 03/09/2023 Telephone [facility] CHC MED & PEDS [address] [place] [address] Clare Mo MD 505 [place] [address] Med Refill Social History Tobacco Use Types [...] (Xanax) 1 MG tablet Please sent to [facility] - [place], [place] - [address] [facility] documented in this encounter Plan of Treatment Upcoming Encounters Date Type Department Care Team ([facility] st Contact Info) Description 01/17/2025 11:00 AM EDT Clinical Support [facility] MED & PEDS 505 [place] [address] Evelina Pmientel, WILBER 505 [place] [address] documented as of this encounter Visit Diagnoses Not on filedocumented in this encounter Care Teams Blood Bank Laboratory Professional Relationship Specialty Start Date End Date Clare Mo MD 505 [place] [address] PCP - General Internal Medicine 03/17/17 documented as of this encounter
--- OUTSIDE RECORDS SUMMARY | 2024-12-13 15:22 | XMS_ITS | Encounter Summary ---
Author Organization [employer] Address [address] [place] [address] [place] [address] Care Team Providers Care Health Plan Advisor Name Role Phone Clare Mo MD Primary Care Provider +1- [phone] Reason for Referral * Consultation (Routine) - Closed Specialty Diagnoses / Procedures Referred By Contac t Referred To Contact Nutrition Diagnoses Obesity, unspecified classification, unspecified obesity type, unspecified whether serious comorbidity present Clare Mo MD 505 [place] [address] Phone: tel: fax: Referral ID Status Reason Start Date Expiration Date V isits Requested Visits Authorized [id number] Closed Consult and Treat 05/19/2024 05/19/2025 1 1 Encounter Details Date Type Department Care Team ([facility] st Contact Info) Description 05/19/2024 Orders Only [facility] CHC MED & PEDS 505 [place] [address] Clare Mo MD 505 [place] [address] Obesity, unspecified classification, unspecified obesity type, unspecified [...] 01/17/2025 11:00 AM EDT Clinical Support [facility] MED & PEDS 505 [place] [address] Evelina Pimentel, RN 505 [place] [address] Scheduled Referrals Name Type Priority Associated Diagnoses Orde r Schedule Referral to Nutrition Therapy Outpatient Referral Routine Obesity, unspecified classification, unspecified obesity type, unspecified whether serious comorbidity present Expected: 05/19/2024 (Approximate), Expires: 05/19/2025 documented as of this encounter Visit Diagnoses Diagnosis Obesity, unspecified classification, unspecified obesity type, unspecified whether serious comorbidity present- Primary documented in this encounter Care Teams Health Plan Advisor Relationship Specialty Start Date End Date Clare Mo MD 505 [place] [address] PCP - General Internal Medicine 03/17/17 documented as of this encounter
--- OUTSIDE RECORDS SUMMARY | 2024-12-13 15:22 | XMS_ITS | Encounter Summary ---
Author Organization [employer] Address [address] [facility] 7 [place] [address] Care Team Providers Care Delivery And Installation Subcontractor Name Role Phone Clare Mo MD Primary Care Provider +1- [phone] Encounter Details Date Type Department Care Team ([facility] Contact Info) Description 10/20/2024 Orders Only [facility] CHC MED & PEDS 505 [place], [place] [phone] Clare Mo MD 505 [place] [address] Chronic low back pain with sciatica, sciatica [...] t he electric, gas, oil or water [employer] threatened to shut off services in your [...] Description 01/17/2025 11:00 AM EDT Clinical Support [facility] CHC MED & PEDS 505 [place] [address] Evelina Pimentel, WILBER 505 [place] [address] documented as of this encounter Visit Diagnoses Diagnosis Chronic low back pain with sciatica, sciatica laterality unspecified, unspecified back pain laterality- Primary documented in this encounter Care Teams Delivery And Installation Subcontractor Relationship Specialty Start Date End Date Clare Mo MD 505 [place] [address] PCP - General Internal Medicine 03/17/17 documented as of this encounter
--- OUTSIDE RECORDS SUMMARY | 2024-12-13 15:22 | XMS_ITS | Encounter Summary ---
Author Organization [employer] Address 75 [facility] 7 [place] [address] Care Team Providers Care Iron Installer Name Role Phone Clare Mo MD Primary Care Provider +1- [phone] Reason for Visit * Reason Onset Date Comments Nurse Triage 12/11/2024 Encounter Details Date Type Department Care Team ([facility] st Contact Info) Description 12/11/2024 Telephone [facility] MEDICINE [address] [place] [address] Clare Mo MD 505 [place], [place] [phone] Nurse Triage Social History Tobacco Use Types [...] Neck pain The caller accepted this outcome. [phone] documented in this encounter Plan of Treatment Upcoming Encounters Date Type Department Care Team (Late st Contact Info) Description 01/17/2025 11:00 AM EDT Clinical Support [facility] CHC MED & PEDS 505 [place] [address] Evelina Pimentel, RN 505 [place] [address] documented as of this encounter Visit Diagnoses Not on filedocumented in this encounter Care Teams Iron Installer Relationship Specialty Start Date End Date Clare Mo MD 505 [place] [address] PCP - General Internal Medicine 03/17/17 documented as of this encounter
--- OUTSIDE RECORDS SUMMARY | 2024-12-13 15:22 | XMS_ITS | Encounter Summary ---
Author Organization [employer] Address [address] [place] [address] [facility] [place] [address] Care Team Providers Care Daytime Caregiver Name Role Phone Clare Mo MD Primary Care Provider +1- [phone] Reason for Visit * Reason Comments Med Refill Encounter Details Date Type Department Care Team ([facility] st Contact Info) Description 04/05/2023 Refill [facility] CHC MED & PEDS 505 [place] [address] Clare Mo MD 505 [place] [address] Chronic midline low back pain with sciatica, [...] Description 01/17/2025 11:00 AM EDT Clinical Support [facility] MED & PEDS 505 [place] [address] Evelina Pimentel RN 505 [place] [address] documented as of this encounter Visit Diagnoses Diagnosis Chronic midline low back pain with sciatica, sciatica laterality unspecified Chronic low back pain, unspecified back pain laterality, unspecified whether sciatica present documented in this encounter Care Teams Daytime Caregiver Relationship Specialty Start Date End Date Clare Mo MD 505 [place] [address] PCP - General Internal Medicine 03/17/17 documented as of this encounter
--- OUTSIDE RECORDS SUMMARY | 2024-12-13 15:22 | XMS_ITS | Encounter Summary ---
Author Organization [employer] Address [address] [facility] 7 [place] [address] Care Team Providers Care Director And Professor Name Role Phone Clare Mo MD Primary Care Provider +1- [phone] Reason for Visit * Reason Onset Date Comments Call Back Request 01/06/2024 Encounter Details Date Type Department Care Team ([facility] Contact Info) Description 01/06/2024 Telephone [facility] CHC MED & PEDS 505 [place] [address] Clare Mo MD 505 [place] [address] Call Back Request Social History Tobacco Use [...] Upcoming Encounters Date Type Department Care Team ([facility] st Contact Info) Description 01/17/2025 11:00 AM EDT Clinical Support [facility] MED & PEDS 505 [place] [address] Evelina Pimentel, WILBER 505 [place] [address] documented as of this encounter Visit Diagnoses Not on filedocumented in this encounter Care Teams Director And Professor Relationship Specialty Start Date End Date Clare Mo MD 505 [place] [address] PCP - General Internal Medicine 03/17/17 documented as of this encounter
--- OUTSIDE RECORDS SUMMARY | 2024-12-13 15:22 | XMS_ITS | Encounter Summary ---
Author Organization [employer] Address [address] [place] [address] [place] [address] Care Team Providers Care Airline Customer Service Agent Name Role Phone Clare Mo MD Primary Care Provider +1 [phone] Reason for Referral * Consultation (Urgent) - Closed Specialty Diagnoses / Procedures Referred By Contnola t Referred To Contact Neurosurgery Diagnoses Lumbar nerve root impingement Clare Mo MD 505 [place] [address] Phone: tel: fax: Keli Suggs [address] [place] [address], [address] [place], [place] Phone: tel: fax: Referral ID Status Reason Start Date Expiration Date V isits Requested Visits Authorized [id number] Closed Specialty Services Required 01/11/2024 01/10/2025 1 1 Encounter Details Date Type Department Care Team (Late st Contact Info) Description 01/11/2024 Orders Only [facility] CHC MED & PEDS 505 [place] [address] Clare Mo MD 505 [place] [address] Lumbar nerve root impingement (Primary Dx); Chronic [...] Upcoming Encounters Date Type Department Care Team ([facility] Contact Info) Description 01/17/2025 11:00 AM EDT Clinical Support [facility] CHC MED & PEDS 505 [place] [address] Evelina Pimentel RN 505 [place] [address] Scheduled Referrals Name Type Priority Associated Diagnoses [...] unspecified documented in this encounter Care Teams Airline Customer Service Agent Relationship Specialty Start Date End Date Clare Mo MD 505 [place] [address] PCP - General Internal Medicine 03/17/17 documented as of this encounter
--- OUTSIDE RECORDS SUMMARY | 2024-12-13 15:22 | XMS_ITS | Encounter Summary ---
Author Organization [employer] Address 75 [facility] 7 [place] [address] Care Team Providers Care Pot Tender Name Role Phone Clare Mo MD Primary Care Provider +1- [phone] Reason for Visit * Reason Onset Date Comments Med Refill 11/10/2024 Encounter Details Date Type Department Care Team ([facility] st Contact Info) Description 11/10/2024 Telephone [facility] MEDICINE [address] [place] [address] Clare Mo MD 505 [place], [place] [phone] Med Refill Social History Tobacco Use Types [...] 1 MG tablet To be sent to: [facility] - [place], [place] - [address] [place] [address] ' ' documented in this encounter Plan of Treatment Upcoming Encounters Date Type Department Care Team (Late st Contact Info) Description 01/17/2025 11:00 AM EDT Clinical Support [facility] MED & PEDS 505 [place] [address] Evelina Pimentel, WILBER 505 [place] [address] documented as of this encounter Visit Diagnoses Not on filedocumented in this encounter Care Teams Pot Tender Relationship Specialty Start Date End Date Clare Mo MD 505 [place] [address] PCP - General Internal Medicine 03/17/17 documented as of this encounter
--- OUTSIDE RECORDS SUMMARY | 2024-12-13 15:22 | XMS_ITS | Encounter Summary ---
Author Organization [employer] [facility] Address [address] [place] [address] [place] [address] Care Team Providers Care Squeak Rattle And Leak Repairer Name Role Phone Clare Mo MD Primary Care Provider +1- [phone] Encounter Details Date Type Department Care Team (Late st Contact Info) Description 04/20/2023 Orders Only [facility] MED & PEDS 505 [place], [place] [phone] Clare Mo MD 505 [place] [address] Pain in both hands (Primary Dx); Chronic [...] 11:00 AM EDT Clinical Support [facility] MED & PEDS 505 [place] [address] Evelina Pimentel RN 505 [place], [place] [phone] documented as of this encounter Visit Diagnoses Diagnosis Pain in both hands- Primary Chronic low back pain, unspecified back pain laterality, unspecified whether sciatica present documented in this encounter Care Teams Squeak Rattle And Leak Repairer Relationship Specialty Start Date End Date Clare Mo MD [address] [place] [address] PCP - General Internal Medicine 03/17/17 documented as of this encounter
--- OUTSIDE RECORDS SUMMARY | 2024-12-13 15:22 | XMS_ITS | Encounter Summary ---
Author Organization [employer] Address [address] [facility] 7t [place] [address] Care Team Providers Care Customer Experience Strategist Name Role Phone Clare Mo MD Primary Care Provider +1- [phone] Encounter Details Date Type Department Care Team ([facility] st Contact Info) Description 09/19/2024 Telephone [facility] MEDICINE [address] [place] [address] Clare Mo MD 505 [place] [address] Social History Tobacco Use Types Packs/Day Years [...] 09/19/2024 9:37 AM EST Safety and Incident Cyber Security Specialist Dahiana Bernal spoke with patient. Patient is requesting refill on medications : Gabapentin, Flexeril, Oxycodone, and Xanax. Patient upset due to [employer] continuesto state that the PCP has not signed [employer] forms. Jig Borer informed will look into. documented in this encounter Plan of Treatment Upcoming Encounters Date Type Department Care Team (Late st Contact Info) Description 01/17/2025 11:00 AM EDT Clinical Support [facility] CHC MED & PEDS [address] [place] [address] Evelina Pimentel, WILBER 505 [place] [address] documented as of this encounter Visit Diagnoses Not on filedocumented in this encounter Care Teams Customer Experience Strategist Relationship Specialty Start Date End Date Clare Mo MD 505 [place] [address] PCP - General Internal Medicine 03/17/17 documented as of this encounter
--- OUTSIDE RECORDS SUMMARY | 2024-12-13 15:22 | XMS_ITS | Encounter Summary ---
Author Organization [employer] Address [address] [place] [address] [place] [address] Care Team Providers Care Fish Worm Grower Name Role Phone Clare Mo MD Primary Care Provider +1- [phone] Reason for Referral * Consultation (Routine) - Closed Specialty Diagnoses / Procedures Referred By Contac t Referred To Contact Orthopaedic Surgery Diagnoses Right hip pain SI joint arthritis (CMS/HCC) Clare Mo MD 505 [place] [address] Phone: tel: fax: [facility] [address] [place] [address] Drive [address] [place], [place] Phone: tel: fax: Referral ID Status Reason Start Date Expiration Date V isits Requested Visits Authorized [id number] Closed Specialty Services Required 09/07/2024 09/07/2025 6 6 Encounter Details Date Type Department Care Team ([facility] Contact Info) Description 09/04/2024 Orders Only [facility] CHC MED & PEDS [address] [place], [place] [phone] Clare Mo MD [address] [place] [address] Right hip pain (Primary Dx); SI joint [...] Upcoming Encounters Date Type Department Care Team ([facility] st Contact Info) Description 01/17/2025 11:00 AM EDT Clinical Support [facility] MED & PEDS [address] [place] [address] Evelina Pimentel, WILBER 505 [place] [address] Scheduled Referrals Name Type Priority Associated Diagnoses Order Schedule Referral to Orthopaedic Surgery Outpatient Referral Routine Right hip pain SI joint arthritis (CMS/HCC) Expected: 09/04/2024 (Approximate), Expires: 09/04/2025 documented as of this encounter Visit Diagnoses Diagnosis Right hip pain- Primary Pain in joint, pelvic region and thigh SI joint arthritis (CMS/HCC) documented in this encounter Care Teams Fish Worm Grower Relationship Specialty Start Date End Date Clare Mo MD [address] [place] [address] PCP - General Internal Medicine 03/17/17 documented as of this encounter
--- OUTSIDE RECORDS SUMMARY | 2024-12-13 15:22 | XMS_ITS | Encounter Summary ---
Author Organization [facility] Address [address] [place] [address] [address] [place] [address] Care Team Providers Care Race Car Mechanic Name Role Phone Clare Mo MD Primary Care Provider +1- [phone] Encounter Details Date Type Department Care Team ([facility] Contact Info) Description 03/23/2023 Orders Only [facility] MED & PEDS 505 [place] [address] Clare Mo MD 505 [place] [address] Chronic low back pain with sciatica, sciatica [...] Upcoming Encounters Date Type Department Care Team ([facility] Contact Info) Description 01/17/2025 11:00 AM EDT Clinical Support [facility] MED & PEDS [address] [place] [address] Evelina Pimentel, WILBER 505 [place] [address] documented as of this encounter Visit Diagnoses Diagnosis Chronic low back pain with sciatica, sciatica laterality unspecified, unspecified back pain laterality- Primary Vitamin D deficiency documented in this encounter Care Teams Race Car Mechanic Relationship Specialty Start Date End Date Clare Mo MD 505 [place] [address] PCP - General Internal Medicine 03/17/17 documented as of this encounter
--- OUTSIDE RECORDS SUMMARY | 2024-12-13 15:22 | XMS_ITS | Encounter Summary ---
Author Organization [employer] Address [address] [facility] 7 [place] [address] Care Team Providers Care Carton Stamper Name Role Phone Clare Mo MD Primary Care Provider +1- [phone] Reason for Visit * Reason Onset Date Comments Medication Question 12/06/2024 Encounter Details Date Type Department Care Team ([facility] Contact Info) Description 12/06/2024 Telephone [facility] CHC MED & PEDS 505 [place] [address] Clare Mo MD 505 [place] [address] Medication Question Social History Tobacco Use Types [...] to leave today. Pt states went to lemon picker medication oxy before she leaves bur can't due to dispense date being for tomorrow 12/07/24. documented in this encounter Plan of Treatment Upcoming Encounters Date Type Department Care Team (Late st Contact Info) Description 01/17/2025 11:00 AM EDT Clinical Support [facility] MED & PEDS [address] [place] [address] Evelina Pimentel, WILBER 505 [place] [address] documented as of this encounter Visit Diagnoses Diagnosis Chronic low back pain with sciatica, sciatica laterality unspecified, unspecified back pain laterality documented in this encounter Care Teams Carton Stamper Relationship Specialty Start Date End Date Clare Mo MD 505 [place] [address] PCP - General Internal Medicine 03/17/17 documented as of this encounter
--- OUTSIDE RECORDS SUMMARY | 2024-12-13 15:22 | XMS_ITS | Encounter Summary ---
Author Organization [employer] Address [address] [facility] 7 [place] [address] Care Team Providers Care Test And Turn Up Technician Name Role Phone Clare Mo MD Primary Care Provider +1- [phone] Reason for Visit * Reason Comments Multiple joint pains Encounter Details Date Type Department Care Team ([facility] st Contact Info) Description 12/11/2024 2:00 PM EDT Office Visit [facility] CHC MED & PEDS 505 [place] [address] Clare Mo MD 505 [place] [address] Neck pain (Primary Dx); Acute left ankle [...] fall. She reports that she was in [place] because of the family emergency when she [...] low back pain Depressed bipolar I disorder ([facility]/HCC) Migraine Mood disorder (CMS/[facility]) Panic disorder Posttraumatic stress disorder Vitamin D [...] ketorolac (Toradol) injection 30 mg - HYDROcodone-acetaminophen ([place]) 5-325 MG tablet; Take 1 tablet by mouth every 6 (six) hours if needed for severe pain for up to 5 days. - Drug Monitoring, Opiates Expanded, Quantitative, Urine; Future Acute left ankle pain Comments: xray ordered Heat therapy Meds as prescribed Pt will be contacted w/ results. Orders: - XR Ankle 3+ Views Left; Future - HYDROcodone-acetaminophen ([place]) 5-325 MG tablet; Take 1 tablet by mouth every 6 (six) hours if needed for severe pain for up to 5 days. - Drug Monitoring, Opiates Expanded, Quantitative, Urine; Future Low back pain at multiple sites Comments: as above Orders: - XR Lumbar Spine 2-3 Views; Future - HYDROcodone-acetaminophen ([place]) 5-325 MG tablet; Take 1 tablet by mouth every 6 (six) hours if needed for severe pain for up to 5 days. Acute pain of both shoulders Comments: as above PT referral if there is no fracture on the xrays. Orders: - XR Shoulder 2+ Views Left; Future - XR Shoulder 2+ Views Right; Future - HYDROcodone-acetaminophen ([place]) 5-325 MG tablet; Take 1 tablet by mouth every 6 (six) hours if needed for severe pain for up to 5 days. documented in this encounter Plan of Treatment Upcoming Encounters Date Type Department Care Team (Late st Contact Info) Description 01/17/2025 11:00 AM EDT Clinical Support [facility] MED & PEDS [address] [place] [address] Evelina Pimentel, WILBER 505 [place] [address] Scheduled Orders Name Type Priority Associated Diagnoses [...] of both shoulders Expected: 12/11/2024, Expires: 12/11/2025 documented as of this encounter Procedures Procedure Name Priority Date/Time Associated Diagnosis Comments DRUG MONITOR, PANEL 1, SCREEN, URINE Routine 12/13/2024 12:49 PM EDT Neck pain Acute left ankle pain documented in this encounter Results * (ABNORMAL) Drug Monitoring, Panel 1, Screen, Urine (12/13/2024 12:49 PM EDT) Opiate Screen Urine POSITIVE(A) Not Detect [facility] Comment:Opiate cut-off is 30 0 ng/mL.Positive results are unconfirmed and should not be used fornon-medical purposes. Barbiturates, Urine Not Detected Not Detect [facility] Comment:Barbiturate cut-off is 200 ng/mL.Positive results are unconfirmed and should not be used fornon-medical purposes. Phencyclidine Screen Urine Not Detected Not Detect [facility] Comment:Phencyclidine cut-of f is 25 ng/mL.Positive results are unconfirmed and should not be used fornon-medical purposes. Amphetamine Screen Urine Not Detected Not Detect [facility] Comment:Amphetamine cut-off is 1000 ng/mL.Positive results are unconfirmed and should not be used fornon-medical purposes. Benzodiazepines Screen Urine POSITIVE(A) Not Detect [facility] Comment:Benzodiazepine cut-o ff is 200 ng/mL.Positive results are unconfirmed and should not be used fornon-medical purposes. Cocaine Screen Urine Not Detected Not Detect [facility] Comment:Cocaine cut-off is 3 00 ng/mL.Positive results are unconfirmed and should not be used fornon-medical purposes. Cannabinoid Screen Urine POSITIVE(A) Not Detect [facility] Comment:Cannabinoid cut-off is 50 ng/mL.Positive results are unconfirmed and should not be used fornon-medical purposes. Methadone Screen, Urine Not Detected Not Detect ng/mL [facility] Comment:Methadone cut-off is 300 ng/mL.Positive results are unconfirmed and should not be used fornon-medical purposes. FENTANYL URINE Not Detected Not Detect [facility] Comment:Fentanyl cut-off is 1 ng/mL.Positive results are unconfirmed and should not be used fornon-medical purposes. Oxycodone Urine Screen Not Detected Not Detect ng/mL [facility] Comment:Oxycodone cut-off is 100 ng/mL.Positive results are unconfirmed and should not be used fornon-medical purposes. Buprenorphine Screen Not Detected Not Detect ng/mL [facility] Comment:Buprenorphine cut-of f is 5 ng/mL.Positive results are unconfirmed and should not be used fornon-medical purposes. Urine (Urine, Random) 12/13/2024 12:49 PM EDT 12/13/2024 2:05 PM EDT Clare Mo MD LAB URINE ORDERABLES Final Result [facility] [address] [place] [address] [phone] documented in this encounter Visit Diagnoses Diagnosis Neck pain- Primary Cervicalgia Acute left ankle pain Low back pain at multiple sites Acute pain of both shoulders documented in this encounter Administered Medications Inactive Administered Medications - up to 3 most recent administrations Medication Order MAR Action Action Date Dose Rate Site ketorolac (Toradol) injection 30 mg 30 mg, Intramuscular, Once, On Wed12/11/24 at 1430, For 1 doseIndications:Neck pain Given 12/11/2024 2:30 PM EDT 30 mg Right Deltoid documented in this encounter Care Teams Test And Turn Up Technician Relationship Specialty Start Date End Date Clare Mo MD [address] [place] [address] PCP - General Internal Medicine 03/17/17 documented as of this encounter
--- OUTSIDE RECORDS SUMMARY | 2024-12-13 15:22 | XMS_ITS | Encounter Summary ---
Author Organization [employer] Address [address] [facility] 7t [place] [address] Care Team Providers Care Editor Managing Director Name Role Phone Clare Mo MD Primary Care Provider +1 [phone] Encounter Details Date Type Department Care Team [...] 11:00 AM EDT Clinical Support [facility] MED & PEDS [address] [place] [address] Evelina Pimentel, WILBER 505 [place] [address] documented as of this encounter Visit Diagnoses Not on filedocumented in this encounter Care Teams Editor Managing Director Relationship Specialty Start Date End Date Clare Mo MD 505 [place] [address] PCP - General Internal Medicine 03/17/17 documented as of this encounter
--- OUTSIDE RECORDS SUMMARY | 2024-12-13 15:22 | XMS_ITS | Encounter Summary ---
Author Organization [employer] Address [address] [facility] 7 [place] [address] Care Team Providers Care Gps Field Data Collector Name Role Phone Clare Mo MD Primary Care Provider +1- [phone] Reason for Visit * Reason Onset Date Comments Results 04/02/2023 Encounter Details Date Type Department Care Team ([facility] Contact Info) Description 04/02/2023 Telephone [facility] CHC MED & PEDS [address] [place] [address] Clare Mo MD 505 [place] [address] Results Social History Tobacco Use Types Packs/Day [...] Upcoming Encounters Date Type Department Care Team ([facility] st Contact Info) Description 01/17/2025 11:00 AM EDT Clinical Support [facility] MED & PEDS [address] [place] [address] Evelina Pimentel RN [address] [place] [address] documented as of this encounter Visit Diagnoses Diagnosis Chronic midline low back pain with sciatica, sciatica laterality unspecified documented in this encounter Care Teams Gps Field Data Collector Relationship Specialty Start Date End Date Clare Mo MD [address] [place] [address] PCP - General Internal Medicine 03/17/17 documented as of this encounter
--- OUTSIDE RECORDS SUMMARY | 2024-12-13 15:22 | XMS_ITS | Encounter Summary ---
Author Organization [employer] Address [address] [facility] 7 [place] [address] Care Team Providers Care Tutoring Manager Name Role Phone Clare Mo MD Primary Care Provider +1- [phone] Reason for Visit * Reason Onset Date Comments Med Refill 04/14/2024 Encounter Details Date Type Department Care Team ([facility] st Contact Info) Description 04/14/2024 Telephone [facility] MEDICINE [address] [place] [address] Clare Mo MD [address] [place] [address] Med Refill Social History Tobacco Use Types [...] Miscellaneous Notes * Telephone Encounter - Jaycob aMrtini - 04/14/2024 11:50 AM EDT TC from pt requesting medication refill. Medications needing refill : oxyCODONE-acetaminophen (Percocet) 10-325 MG tablet and ALPRAZolam (Xanax) 1 MG tablet To be sent to: [facility] - [place], [place] - [address] [place] [address] documented in this encounter Plan of Treatment Upcoming Encounters Date Type Department Care Team (Late st Contact Info) Description 01/17/2025 11:00 AM EDT Clinical Support [facility] MED & PEDS [address] [place] [address] Evelina Pimentel RN [address] [place] [address] documented as of this encounter Visit Diagnoses Not on filedocumented in this encounter Care Teams Tutoring Manager Relationship Specialty Start Date End Date Clare Mo MD [address] [place] [address] PCP - General Internal Medicine 03/17/17 documented as of this encounter
--- OUTSIDE RECORDS SUMMARY | 2024-12-13 15:22 | XMS_ITS | Encounter Summary ---
Author Organization [employer] Address [address] [place] [address] [place] [address] Care Team Providers Care Shroudman Name Role Phone Clare Mo MD Primary Care Provider +1- [phone] Reason for Visit * Reason Comments Med Refill Encounter Details Date Type Department Care Team ([facility] Contact Info) Description 03/09/2023 Refill [facility] MED & PEDS [address] [place] [address] Clare Mo MD [address] [place] [address] Chronic low back pain with sciatica, sciatica [...] Team ([facility] Contact Info) Description 01/17/2025 11:00 AM EDT Clinical Support [facility] MED & PEDS [address] [place] [address] Evelina Pimentel, WILBER 505 [place] [address] documented as of this encounter Visit Diagnoses Diagnosis Chronic low back pain with sciatica, sciatica laterality unspecified, unspecified back pain laterality Anxiety Anxiety state, unspecified documented in this encounter Care Teams Shroudman Relationship Specialty Start Date End Date Clare Mo MD [address] [place] [address] PCP - General Internal Medicine 03/17/17 documented as of this encounter
--- OUTSIDE RECORDS SUMMARY | 2024-12-13 15:22 | XMS_ITS | Encounter Summary ---
Author Organization [employer] Address [address] [facility] 7 [place] [address] Care Team Providers Care Head Rigger Name Role Phone Clare Mo MD Primary Care Provider +1 [phone] Encounter Details Date Type Department Care Team ([facility] Contact Info) Description 02/24/2024 Orders Only [facility] [address] [place], [place] [phone] ProviderRadhika MD Social History Tobacco Use Types Packs/Day Years Used Date Smoking Tobacco: Former Cigarettes Housing Stability Answer Date Recorded What is your housing situation today? I have roesmary nadia 06/28/[address] you [...] [facility] [address] [place] [address] Evelina Pimentel, RN 505 [place] [address] documented as of this encounter Procedures Procedure [...] on filedocumented in this encounter Care Teams Head Rigger Relationship Specialty Start Date End Date Clare Mo MD [address] [place] [address] PCP - General Internal Medicine 03/17/17 documented as of this encounter
--- OUTSIDE RECORDS SUMMARY | 2024-12-13 15:22 | XMS_ITS | Encounter Summary ---
Author Organization [employer] Address [address] [facility] 7 [place] [address] Care Team Providers Care Sap Data Architect Name Role Phone Clare Mo MD Primary Care Provider +1- [phone] Encounter Details Date Type Department Care Team ([facility] Contact Info) Description 09/29/2024 Orders Only [facility] CHC MED & PEDS [address] [place], [place] [phone] Clare Mo MD [address] [place] [address] Social History Tobacco Use Types Packs/Day Years [...] 11:00 AM EDT Clinical Support [facility] MED & PEDS [address] [place] [address] Evelina Pimentel, WILBER 505 [place] [address] documented as of this encounter Visit Diagnoses Not on filedocumented in this encounter Care Teams Sap Data Architect Relationship Specialty Start Date End Date Clare Mo MD [address] [place] [address] PCP - General Internal Medicine 03/17/17 documented as of this encounter
--- OUTSIDE RECORDS SUMMARY | 2024-12-13 15:23 | XMS_ITS | Encounter Summary ---
Author Organization [employer] Address [address] [facility] 7t [place] [address] Care Team Providers Care Rate Reviewer Name Role Phone Clare Mo MD Primary Care Provider +1- [phone] Encounter Details Date Type Department Care Team ([facility] st Contact Info) Description 06/20/2024 Orders Only [facility] [address] [place] [address] Clare Mo MD [address] [place] [address] Chronic low back pain with sciatica, sciatica [...] the past 12 months, has t he [employer] gas, oil or water company threatened to [...] 11:00 AM EDT Clinical Support [facility] MED & PEDS [address] [place] [address] Evelina Pimentel, WILBER 505 [place] [address] documented as of this encounter Visit Diagnoses Diagnosis Chronic low back pain with sciatica, sciatica laterality unspecified, unspecified back pain laterality Anxiety Anxiety state, unspecified documented in this encounter Care Teams Rate Reviewer Relationship Specialty Start Date End Date Clare Mo MD [address] [place] [address] PCP - General Internal Medicine 03/17/17 documented as of this encounter
--- OUTSIDE RECORDS SUMMARY | 2024-12-13 15:23 | XMS_ITS | Encounter Summary ---
Author Organization [employer] Address 75 [facility] 7 [place] [address] Care Team Providers Care Retail Client Manager Name Role Phone Clare Mo MD Primary Care Provider +1- [phone] Reason for Visit * Reason Onset Date Comments Med Refill 07/26/2023 Encounter Details Date Type Department Care Team ([facility] st Contact Info) Description 07/26/2023 Telephone [facility] MEDICINE [address] [place] [address] Clare Mo MD [address] [place], [place] [phone] Med Refill Social History Tobacco Use Types [...] [facility]ED[facility] [address] [place] [address] Evelina Pimentel, WILBER 505 [place] [address] documented as of this encounter Visit Diagnoses Not on filedocumented in this encounter Care Teams Retail Client Manager Relationship Specialty Start Date End Date Clare Mo MD [address] [place] [address] PCP - General Internal Medicine 03/17/17 documented as of this encounter
--- OUTSIDE RECORDS SUMMARY | 2024-12-13 15:23 | XMS_ITS | Encounter Summary ---
Author Organization [employer] [facility] Address [address] [place] [address] [place] [address] Care Team Providers Care Plate Embosser Name Role Phone Clare Mo MD Primary Care Provider +1- [phone] Encounter Details Date Type Department Care Team (Latest Contact Info) Description 08/16/2020 Abstract [facility] CONVERSIONS Dental, Provider, DDS Social History [...] Upcoming Encounters Date Type Department Care Team ([facility] st Contact Info) Description 01/17/2025 11:00 AM EDT Clinical Support [facility] CHC MED & PEDS [address] [place] [address] Evelina Pimentel RN 505 [place] [address] documented as of this encounter Visit Diagnoses Not on filedocumented in this encounter Care Teams Plate Embosser Relationship Specialty Start Date End Date Clare Mo MD 505 [place] [address] PCP - General Internal Medicine 03/17/17 documented as of this encounter
--- OUTSIDE RECORDS SUMMARY | 2024-12-13 15:23 | XMS_ITS | Encounter Summary ---
Author Organization [employer] Address [address] [facility] 7 [place] [address] Care Team Providers Care Supervisor Channel Process Name Role Phone Clare Mo MD Primary Care Provider +1- [phone] Reason for Visit * Reason Onset Date Comments Med Refill 07/10/2024 Encounter Details Date Type Department Care Team ([facility] st Contact Info) Description 07/10/2024 Telephone [facility] MEDICINE [address] [place] [address] Clare Mo MD [address] [place] [address] Med Refill Social History Tobacco Use Types [...] 1 MG tablet To be sent to: [facility] pharmacy documented in this encounter Plan of Treatment Upcoming Encounters Date Type Department Care Team (Late st Contact Info) Description 01/17/2025 11:00 AM EDT Clinical Support [facility] MED & PEDS [address] [place] [address] Evelina Pimentel, WILBER [address] [place] [address] documented as of this encounter Visit Diagnoses Not on filedocumented in this encounter Care Teams Supervisor Channel Process Relationship Specialty Start Date End Date Clare Mo MD 505 [place] [address] PCP - General Internal Medicine 03/17/17 documented as of this encounter
--- OUTSIDE RECORDS SUMMARY | 2024-12-13 15:23 | XMS_ITS | Encounter Summary ---
Author Organization [employer] Address 75 [facility] 7 [place] [address] Care Team Providers Care Sales Solutions Associate Name Role Phone Clare Mo MD Primary Care Provider +1- [phone] Reason for Visit * Reason Onset Date Comments Call Back Request 11/30/2023 Encounter Details Date Type Department Care Team ([facility] Contact Info) Description 11/30/[address] [facility] MEDICINE [address] [place] [address] Clare Mo MD [address] [place] [address] Call Back Request Social History Tobacco Use [facility] [address] [place] [address] Evelina Pimentel RN 505 [place] [address] documented as of this encounter Visit Diagnoses Not on filedocumented in this encounter Care Teams Sales Solutions Associate Relationship Specialty Start Date End Date Clare Mo MD 505 [place] [address] PCP - General Internal Medicine 03/17/17 documented as of this encounter
--- OUTSIDE RECORDS SUMMARY | 2024-12-13 15:23 | XMS_ITS | Encounter Summary ---
Author Organization [employer] Address 75 [facility] 7 [place] [address] Care Team Providers Care Program Assistant Name Role Phone Clare Mo MD Primary Care Provider +1- [phone] Encounter Details Date Type Department Care Team ([facility] Contact Info) Description 11/29/2023 Orders Only [facility] MED & PEDS [address] [place], [place] [phone] Clare Mo MD [address] [place] [address] Chronic low back pain with sciatica, sciatica [...] t he electric, gas, oil or water [employer] threatened to shut off services in your home? No 06/28/2023 Comments Unknown Sex and Gender Information Value Date Recorded Sex Assigned at Female 2022 10:17 AM EDT Legal Sex Female 10:17 AM EDT Gender Identity Female 2022 10:17 AM EDT Sexual Orientation Straight 2022 10 :17 AM EDT documented as of this encounter Plan of Treatment Upcoming Encounters Date Type Department Care Team ([facility] st Contact Info) Description 01/17/2025 11:00 AM EDT Clinical Support [facility] MED & PEDS [address] [place] [address] Evelina Pimentel RN 505 [place] [address] documented as of this encounter Visit Diagnoses Diagnosis Chronic low back pain with sciatica, sciatica laterality unspecified, unspecified back pain laterality- Primary documented in this encounter Care Teams Program Assistant Relationship Specialty Start Date End Date Clare Mo MD [address] [place] [address] PCP - General Internal Medicine 03/17/17 documented as of this encounter
--- OUTSIDE RECORDS SUMMARY | 2024-12-13 15:23 | XMS_ITS | Encounter Summary ---
Author Organization [employer] Address 75 [facility] 7 [place] [address] Care Team Providers Care Patient Registration Specialist Name Role Phone Clare Mo MD Primary Care Provider +1- [phone] Reason for Visit * Reason Onset Date [...] Details Date Type Department Care Team ([facility] Contact Info) Description 09/22/2022 Telephone [facility] ADULT DENTAL [address] [place] [address] Shukri, Seema [address] [place], [place] [phone] treatment (Patient called in looking to have [...] Description 01/17/2025 11:00 AM EDT Clinical Support [facility] MED & PEDS [address] [place] [address] Evelina Pimentel, WILBER 505 [place] [address] documented as of this encounter Visit Diagnoses Not on filedocumented in this encounter Care Teams Patient Registration Specialist Relationship Specialty Start Date End Date Clare Mo MD 505 [place] [address] PCP - General Internal Medicine 03/17/17 documented as of this encounter
--- OUTSIDE RECORDS SUMMARY | 2024-12-13 15:23 | XMS_ITS | Encounter Summary ---
Author Organization [employer] [facility] Address [address] [place] [address] 7 [place] [address] Care Team Providers Care Senior Media Planner Name Role Phone lCare Mo MD Primary Care Provider +1- [phone] Encounter Details Date Type Department Care Team ([facility] Contact Info) Description 03/03/2023 Abstract [facility] MED & PEDS [address] [place] [address] Kelsea Talley MA Social History Tobacco Use [...] [facility] Contact Info) Description 01/17/2025 11:00 AM EDT Clinical Support [facility] MED & PEDS [address] [place] [address] Evelina Pimentel, WILBER [address] [place] [address] documented as of this encounter Visit Diagnoses Not on filedocumented in this encounter Care Teams Senior Media Planner Relationship Specialty Start Date End Date Clare Mo MD [address] [place] [address] PCP - General Internal Medicine 03/17/17 documented as of this encounter
--- OUTSIDE RECORDS SUMMARY | 2024-12-13 15:23 | XMS_ITS | Encounter Summary ---
Author Organization [employer] Address [address] [facility] [place] [address] Care Team Providers Care End Polisher Name Role Phone Clare Mo MD Primary Care Provider +1- [phone] Reason for Visit * Reason Onset Date Comments call back 02/12/2023 Encounter Details Date Type Department Care Team ([facility] st Contact Info) Description 02/12/2023 Telephone [facility] MEDICINE [address] [place] [address] Clare Mo MD 505 [place] [address] call back Social History Tobacco Use Types [...] PCP cancelled script. Please contact pt at [phone] documented in this encounter Plan of Treatment Upcoming Encounters Date Type Department Care Team ([facility] st Contact Info) Description 01/17/2025 11:00 AM EDT Clinical Support [facility] MED & PEDS [address] [place] [address] Evelina Pimentel RN [address] [place] [address] documented as of this encounter Visit Diagnoses Not on filedocumented in this encounter Care Teams End Polisher Relationship Specialty Start Date End Date Clare Mo MD 505 [place] [address] PCP - General Internal Medicine 03/17/17 documented as of this encounter
--- OUTSIDE RECORDS SUMMARY | 2024-12-13 15:23 | XMS_ITS | Encounter Summary ---
Author Organization [employer] Address [address] [facility] 7 [place] [address] Care Team Providers Care Monorail Crane Operator Name Role Phone Clare Mo MD Primary Care Provider +1- [phone] Reason for Visit * Reason Onset Date Comments Med Refill 05/29/2024 Encounter Details Date Type Department Care Team ([facility] st Contact Info) Description 05/29/2024 Telephone [facility] MEDICINE [address] [place] [address] Clare Mo MD 505 [place] [address] Med Refill Social History Tobacco Use Types [...] 1 MG tablet To be sent to: [facility] [place], [place] - [address] [place] [address] documented in this encounter Plan of Treatment Upcoming Encounters Date Type Department Care Team ([facility] st Contact Info) Description 01/17/2025 11:00 AM EDT Clinical Support [facility] MED & PEDS [address] [place] [address] Evelina Pimentel, WILBER 505 [place] [address] documented as of this encounter Visit Diagnoses Not on filedocumented in this encounter Care Teams Monorail Crane Operator Relationship Specialty Start Date End Date Clare Mo MD [address] [place] [address] PCP - General Internal Medicine 03/17/17 documented as of this encounter
--- OUTSIDE RECORDS SUMMARY | 2024-12-13 15:23 | XMS_ITS | Encounter Summary ---
Author Organization [employer] Address 75 [facility] 7 [place] [address] Care Team Providers Care Stable Helper Name Role Phone Clare Mo MD Primary Care Provider +1- [phone] Reason for Visit * Reason Onset Date Comments Medication Question 11/29/2023 Encounter Details Date Type Department Care Team ([facility] Contact Info) Description 11/29/2023 Telephone [facility] MEDICINE [address] [place] [address] Clare Mo MD [address] [place], [place] [phone] Medication Question Social History Tobacco Use Types [...] information was provided. Please contact pt at [phone]. documented in this encounter Plan of Treatment Upcoming Encounters Date Type Department Care Team ([facility] st Contact Info) Description 01/17/2025 11:00 AM EDT Clinical Support [facility] MED & PEDS [address] [place] [address] Evelina Pimentel, WILBER 505 [place] [address] documented as of this encounter Visit Diagnoses Not on filedocumented in this encounter Care Teams Stable Helper Relationship Specialty Start Date End Date Clare Mo MD 505 [place] [address] PCP - General Internal Medicine 03/17/17 documented as of this encounter
--- OUTSIDE RECORDS SUMMARY | 2024-12-13 15:23 | XMS_ITS | Encounter Summary ---
Author Organization [facility] Address [address] [place] [address] 7 [place] [address] Care Team Providers Care Record Label Intern Name Role Phone Clare Mo MD Primary Care Provider +1- [phone] Encounter Details Date Type Department Care Team ([facility] Contact Info) Description 03/03/2023 Abstract [facility] MED & PEDS [address] [place] [address] Kelsea Talley MA Social History Tobacco Use [...] Upcoming Encounters Date Type Department Care Team ([facility] Contact Info) Description 01/17/2025 11:00 AM EDT Clinical Support [facility] MED & PEDS [address] [place] [address] Evelina Pimentel, WILBER 505 [place] [address] documented as of this encounter Visit Diagnoses Not on filedocumented in this encounter Care Teams Record Label Intern Relationship Specialty Start Date End Date Clare Mo MD [address] [place] [address] PCP - General Internal Medicine 03/17/17 documented as of this encounter
--- OUTSIDE RECORDS SUMMARY | 2024-12-13 15:23 | XMS_ITS | Encounter Summary ---
Author Organization [employer] Address [address] [place] [address] [place] [address] Care Team Providers Care Laminating Machine Offbearer Name Role Phone Clare Mo MD Primary Care Provider +1- [phone] Reason for Visit * Reason Comments Med Refill Encounter Details Date Type Department Care Team ([facility] Contact Info) Description 02/24/2023 Refill [facility] MED & PEDS [address] [place] [address] Clare Mo MD 505 [place] [address] Anxiety; Chronic low back pain with sciatica, [...] ([facility] Contact Info) Description 01/17/2025 11:00 AM EDT Clinical Support [facility] MED & PEDS [address] [place] [address] Evelina Pimentel, WILBER [address] [place] [address] documented as of this encounter Visit Diagnoses Diagnosis Anxiety Anxiety state, unspecified Chronic low back pain with sciatica, sciatica laterality unspecified, unspecified back pain laterality documented in this encounter Care Teams Laminating Machine Offbearer Relationship Specialty Start Date End Date Clare Mo MD [address] [place] [address] PCP - General Internal Medicine 03/17/17 documented as of this encounter
--- OUTSIDE RECORDS SUMMARY | 2024-12-13 15:23 | XMS_ITS ---
Author Organization [employer] Address [address] [place] [address] [place] [address] Care Team Providers Care Open Winder Name Role Phone Clare Mo MD Primary Care Provider +1- [phone] [employer] Status:Enrolled (Active) Start date:01/06/2023 Enrollment date:01/06/2023 Case Team Name Relationship Phone Eveilna Pimentel RN Registered Nurse(Responsible S taff) Continued Care and Services Coordination
--- OUTSIDE RECORDS SUMMARY | 2024-12-13 15:23 | XMS_ITS | Encounter Summary ---
Author Organization [employer] Address 75 [facility] 7 [place] [address] Care Team Providers Care Computer Forensics Investigator Name Role Phone Clare Mo MD Primary Care Provider +1- [phone] Reason for Visit * Reason Comments Med Refill Encounter Details Date Type Department Care Team ([facility] st Contact Info) Description 10/11/2023 Refill [facility] MEDICINE [address] [place] [address] Clare Mo MD [address] [place], [place] [phone] Chronic low back pain, unspecified back pain [...] t he electric, gas, oil or water [employer] threatened to shut off services in your [...] ([facility] st Contact Info) Description 01/17/2025 11:00 AM EDT Clinical Support [facility] MED & PEDS [address] [place] [address] Evelina Pimentel RN [address] [place] [address] documented as of this encounter Visit Diagnoses Diagnosis Chronic low back pain, unspecified back pain laterality, unspecified whether sciatica present documented in this encounter Care Teams Computer Forensics Investigator Relationship Specialty Start Date End Date Clare Mo MD [address] [place] [address] PCP - General Internal Medicine 03/17/17 documented as of this encounter
--- OUTSIDE RECORDS SUMMARY | 2024-12-13 15:23 | XMS_ITS | Encounter Summary ---
Author Organization [employer] [facility] Address [address] [place] [address] [place] [address] Care Team Providers Care Scoop Operator Name Role Phone Clare Mo MD Primary Care Provider +1- [phone] Reason for Visit * Reason Comments Med Refill Encounter Details Date Type Department Care Team ([facility] Contact Info) Description 02/11/2023 Refill [facility] MED & PEDS [address] [place] [address] Clare Mo MD [address] [place] [address] Chronic low back pain with sciatica, sciatica [...] Upcoming Encounters Date Type Department Care Team ([facility] Contact Info) Description 01/17/2025 11:00 AM EDT Clinical Support [facility] MED & PEDS [address] [place] [address] Evelina Pimentel, WILBER 505 [place] [address] documented as of this encounter Visit Diagnoses Diagnosis Chronic low back pain with sciatica, sciatica laterality unspecified, unspecified back pain laterality documented in this encounter Care Teams Scoop Operator Relationship Specialty Start Date End Date Clare Mo MD [address] [place] [address] PCP - General Internal Medicine 03/17/17 documented as of this encounter
--- OUTSIDE RECORDS SUMMARY | 2024-12-13 15:23 | XMS_ITS | Clinical Summary ---
Author Organization [employer] Address [address] [place] [address] 7 [place] [address] Care Team Providers Care Neonatal Specialist Name Role Phone Clare Mo MD Primary Care Provider [phone]- [phone] Allergies Active Allergy Reactions Criticality Noted Date [...] tablet 12/12/19 25 025 Active HYDROcodone-ac etaminophen (Gilman) 5-325 MG tabletIndicati ons:Neck pain,Acute left ankle [...] Description 12/11/2024 2:00 PM EDT Office Visit [facility] [address] [place] [address] Clare Mo MD Neck pain (Primary Dx); Acute left ankle pain; Low back pain at multiple sites; Acute pain of both shoulders 12/11/2024 Travel 12/11/[address] [facility] [address] [place] [address] Clare Mo MD Nurse Triage 12/07/2024 Refill [facility] [address] [place] [address] Clare Mo MD Chronic low back pain with sciatica, sciatica laterality unspecified, unspecified back pain laterality; Anxiety 12/06/2024 Telephone [facility] [address] [place] [address] Clare Mo MD Medication Question 11/28/2024 Refill [facility] [address] [place] [address] Evelina Pimentel oil well fishing tool technician low back pain with sciatica, sciatica laterality unspecified, unspecified back pain laterality 11/28/[address] [facility] [address] [place] [address] Clare Mo MD Med Refill 11/24/2024 Population Health Risk Score [facility] () [address] [phone] Provider, Population Health Generic 11/10/2024 Refill [facility] [address] [place] [address] Evelina Pimentel RN Anxiety; Chronic low back pain with sciatica, sciatica laterality unspecified, unspecified back pain laterality 11/10/[address] [facility] [address] [place] [address] Clare Mo MD Chronic low back pain with sciatica, sciatica laterality unspecified, unspecified back pain laterality 11/10/[address] [facility] [address] [place] [address] Clare Mo MD Med Refill 10/20/2024 Orders Only [facility] [address] [place] [address] Clare Mo MD Chronic low back pain with sciatica, sciatica laterality unspecified, unspecified back pain laterality (Primary Dx) 10/20/2024 Telephone [facility] [address] [place] [address] Clare Mo MD Medication Question 10/19/2024 11:00 AM EST Clinical Support [facility] [address] [place] [address] Evelina Pimentel, oil well fishing tool technician left-sided low back pain, unspecified whether sciatica present 10/19/[address] [facility] [address] [place] [address] Evelina Pimentel, WILBER Anxiety; Chronic low back pain with sciatica, sciatica laterality unspecified, unspecified back pain laterality 10/19/2024 Travel 10/17/[address] [facility] [address] [place] [address] Evelina Pimentel, WILBER 10/03/[address] [facility] [address] [place] [address] Akanksha Bunch RN 09/29/2024 Orders Only [facility] [address] [place] [address] Clare Mo MD 09/19/[address] [facility] [address] [place] [address] Clare Mo MD 09/19/[address] [facility] [address] [place] [address] Clare Mo MD Anxiety; Chronic pain syndrome; [...] Description 01/17/2025 11:00 AM EDT Clinical Support [facility] [address] [place] [address] Evelina Pimentel, WILBER [address] [place] [address] Health Maintenance Due Date Last Done Comments [...] EDT Neck pain Acute left ankle pain POCT VICTOR MANUEL-14 URINE DRUG SCREEN [...] Recently Relevant to Health Maintenance Results * (ABNORMAL) Drug Monitoring, Panel 1, Screen, Urine (12/13/2024 12:49 PM EDT) Opiate Screen Urine POSITIVE(A) Not Detect [facility] Comment:Opiate cut-off is 30 0 ng/mL.Positive results are unconfirmed and should not be used fornon-medical purposes. Barbiturates, Urine Not Detected Not Detect [facility] Comment:Barbiturate cut-off is 200 ng/mL.Positive results are unconfirmed and should not be used fornon-medical purposes. Phencyclidine Screen Urine Not Detected Not Detect [facility] Comment:Phencyclidine cut-of f is 25 ng/mL.Positive results are unconfirmed and should not be used fornon-medical purposes. Amphetamine Screen Urine Not Detected Not Detect [facility] Comment:Amphetamine cut-off is 1000 ng/mL.Positive results are unconfirmed and should not be used fornon-medical purposes. Benzodiazepines Screen Urine POSITIVE(A) Not Detect [facility] Comment:Benzodiazepine cut-o ff is 200 ng/mL.Positive results are unconfirmed and should not be used fornon-medical purposes. Cocaine Screen Urine Not Detected Not Detect [facility] Comment:Cocaine cut-off is 3 00 ng/mL.Positive results are unconfirmed and should not be used fornon-medical purposes. Cannabinoid Screen Urine POSITIVE(A) Not Detect [facility] Comment:Cannabinoid cut-off is 50 ng/mL.Positive results are unconfirmed and should not be used fornon-medical purposes. Methadone Screen, Urine Not Detected Not Detect ng/mL [facility] Comment:Methadone cut-off is 300 ng/mL.Positive results are unconfirmed and should not be used fornon-medical purposes. FENTANYL URINE Not Detected Not Detect [facility] Comment:Fentanyl cut-off is 1 ng/mL.Positive results are unconfirmed and should not be used fornon-medical purposes. Oxycodone Urine Screen Not Detected Not Detect ng/mL [facility] Comment:Oxycodone cut-off is 100 ng/mL.Positive results are unconfirmed and should not be used fornon-medical purposes. Buprenorphine Screen Not Detected Not Detect ng/mL [facility] Comment:Buprenorphine cut-of f is 5 ng/mL.Positive results are unconfirmed and should not be used fornon-medical purposes. Urine (Urine, Random) 12/13/2024 12:49 PM EDT 12/13/2024 2:05 PM EDT us Clare Mo MD LAB URINE ORDERABLES Final Result [facility] [address] [place] [address] [phone] * POCT VICTOR MANUEL-14 Urine Drug Screen (10/19/2024 11:08 AM EST) THC Positive Benzodiazepines Screen, Urine Positive TCA, Urine Positive Oxycodone Screen, Urine Positive Urine Urine specimen obtained by clean catch procedure / Unknown 10/19/2024 11:08 AM EST Narrative Evelina Pimentel RN - 10/19/2024 11:08 AM EST Lot# [id number] Exp: 08-19-25 us Clare Mo MD POINT OF CARE TEST ENTER/ED IT ORDERABLES Final Result * BI Mammogram Screening Tomosynthesis Bilateral (04/24/2024 2:00 PM EDT) Anatomical Region Laterality Modality Breast Bilateral Mammography 04/24/2024 2:00 PM EDT Narrative 05/22/2024 4:31 PM EDT ? [facility] [place] ? [address] ?[place] [address] ? Mammography Report ? Signed ? Patient: Macedo Gongora,May ?MR#: [id number] ?? [id number] ? : 1980 ?Acct:[id number] ? Age/Sex: 43 / F ?ADM Date: /12/24 ? Loc: HO.MAMMO ? Attending Dr: Clare Mo MD ? Ordering Physician: Jeff William MD ?Results: 1Negativ ?? e ? Date of Service: 04/24/24 ?Follow Up: 1 Year From Orig ?? inal Mammogram ? Procedure(s): MM tomosynthesis screening BI ?? Accession Number(s): [id number] ? cc: Clare Mo MD; Jeff William [...] DD/ 1400 ? TD/TT: 04/24/24 1415 ? Tariff Counsel: ? Procedure Note Donpeggyter, Image - 05/22/2024 [facility] [address] [place] [address] Mammography Report Signed Patient: May BeckwithMR#: [id number] : 1980Acct:[id number] Age/Sex: 43 / FADM Date: 04/24/24 Loc: HO.MAMMO Attending Dr: Clare Mo MD Ordering Physician: Jeff William MDResults: 1Negativ e Date of Service: 04/24/24Follow Up: 1 Year From Orig inal Mammogram Procedure(s): MM tomosynthesis screening BI Accession Number(s): [id number] cc: Clare Mo MD; Jeff William MD [...] 05/22/24 1629 DD/ 1400 TD/TT: 04/24/24 1415 Tariff Counsel: [facility] External Provider IMG BI PROCEDURES Final Result * Pap Smear (03/08/2023 12:18 PM EDT) 03/08/2023 12:1 8 PM EDT 03/10/2023 8:55 AM EDT [facility] - 03/27/2023 3:23 PM EDT ----- ------- Name: May Beckwith ?Age/Sex: 42/F ? : 1980 Unit#: [id number] ?? Attend Dr: Jeff William MD ?Re03/08/23 ?Status: DEP REF ? Location: HO.LNP ?Disch: ? ----- ------- SPEC : [id number] ? RECD: 03/10/23 ? STATUS: ??SOUT ? REQ NUM: [id number] ? BRANDON: 03/08/23 ? SUBM DR: Jeff [...] 66, 68) ? HPV testing performed by [facility], [place], [place]. ??See reference laboratory ?? portion of the EMR for entire report. ?Clinical Information LMP: 03/05/23 Previous PAP test: Unknown date/findings ? Material Received ?? ThinPrep-Cervical Copies To: ?? Clare Mo MD ?? [address] ?? [place] [address] ? Jeff William MD ?? [address] [facility] ?? [place] [address] ?? [phone] ----- ------- Signed (signature on file) Alondra Sandra Santillan 03/27/23 1523 ? ----- ------- ? END OF REPORT ? [facility] External Provider LAB CYT OLOGY ORDERABLES Final Result [facility] [address] [facility] [place] [address] [phone] * LIPID PANEL, STANDARD (07/04/2021 9:32 [...] ?? Panda SEAMAN et al. NALLELY. 2013;310(19): 4854-4715 ?? (http://education.HealthSynch/faq/EVN213) Non-HDL Cholesterol 105 <130 mg/dL (calc) [facility] Comment: For patients with diabetes plus 1 major ASCVD risk ?? factor, treating to a non-HDL-C goal of <100 mg/dL ?? (LDL-C of <70 mg/dL) is considered a therapeutic ?? option. Triglycerides 115 <150 mg/dL [facility] 07/04/2021 9:32 AM EDT Clare Mo MD LAB BLOOD ORDERABLES Final Result [facility] [address] * HPV mRNA E6/E7 (10/24/2019 3:31 PM EST) HPV mRNA E6/E7 Not Detected NOT DETECTED [facility] Comment: This test was performed using the APTIMA(R) HPV Assay ([employer] This assay detects E6/E7 viral messenger RNA (mRNA) from 14 high-risk HPV types (16,18,31,33,35,39,45,51, 52,56,58,59,66,68). For additional information please refer to: http://education.Xeros/faq/MEF510i6 (This link is being provided for informational/ educational purposes only.) The analytical performance characteristics of this assay have been determined by [employer] [place], [place]. The modifications have not been cleared or approved by the FDA. This assay has been validated pursuant to the CLIA regulations and is used for clinical purposes. Test Performed by Lisa Ordonez, [facility], [address] [place] [address] Jalen Hart M.D., Ph.D., Director of Laboratories , [facility] [id number] Please note: ??Effective 05/25/2016, HPV testing will be performed using [employer]'s APTIMA test which targets mRNA. Detecting mRNA instead of DNA, as in older methods, offers significant improvements in specificity. 10/24/2019 3:31 PM EST us Camille Ash CNM HISTORICAL/NON ORDERABLE LABS Final Result [facility] [address] from Last 3 Months or Most Recently Relevant to Health Maintenance Insurance MEDICARE [facility] STANDARD DENTAL-[facility] MEDICAID STAND ADULT [place] [id number] [place] [id number] Care Teams Neonatal Specialist Relationship Specialty Start Date End Date Clare Mo MD [address] [place] [address] [place] [phone] PCP - General Internal Medicine 03/17/17
--- OUTSIDE RECORDS SUMMARY | 2024-12-13 15:23 | XMS_ITS | Encounter Summary ---
Author Organization [employer] Address [address] [place] [address] [place] [address] Care Team Providers Care Clinical Science Consultant Name Role Phone Clare Mo MD Primary Care Provider [phone]- [phone] Encounter Details Date Type Department Care Team (Late Contact Info) Description 05/14/2023 Orders Only [facility] [address] [place] [address] Clare Mo MD [address] [place] [address] Pain in both hands (Primary Dx); Chronic [...] [facility] [address] [place] [address] Evelina Pimentel RN [address] [place], [place] [phone] documented as of this encounter Visit Diagnoses Diagnosis Pain in both hands- Primary Chronic migraine without aura without status migrainosus, not intractable Anxiety Anxiety state, unspecified Chronic midline low back pain with sciatica, sciatica laterality unspecified documented in this encounter Care Teams Clinical Science Consultant Relationship Specialty Start Date End Date Clare Mo MD [address] [place] [address] PCP - General Internal Medicine 03/17/17 documented as of this encounter
--- OUTSIDE RECORDS SUMMARY | 2024-12-13 15:23 | XMS_ITS | Encounter Summary ---
Author Organization [employer] Address [address] [place] [address] [place] [address] Care Team Providers Care Packaging Machine Operator Name Role Phone Clare Mo MD Primary Care Provider [phone]- [phone] Encounter Details Date Type Department Care Team ([facility] Contact Info) Description 02/12/2023 Orders Only [facility] [address] [place] [address] Clare Mo MD [address] [place] [address] Chronic low back pain with sciatica, sciatica [...] Upcoming Encounters Date Type Department Care Team ([facility] Contact Info) Description 01/17/2025 11:00 AM EDT Clinical Support [facility] [address] [place] [address] Evelina Pimentel, W[place]BER [address] [place] [address] documented as of this encounter Procedures Procedure Name Priority Date/Time Associated Diagnosis Comments PAP SMEAR Routine 03/08/2023 12:18 PM EDT Chronic low back pain with sciatica, sciatica laterality unspecified, unspecified back pain laterality documented in this encounter Results * Pap Smear (03/08/2023 12:18 PM EDT) 03/08/2023 12:1 8 PM EDT 03/10/2023 8:55 AM EDT [facility] - 03/27/2023 3:23 PM EDT ----- ------- Name: May Beckwith ?Age/Sex: 42/F ? : 1980 Unit#: [id number] ?? Attend Dr: Jeff William MD ?Re03/08/23 ?Status: DEP REF ? Location: HO.LNP ?Disch: ? ----- ------- SPEC : [id number] ? RECD: 03/10/23 ? STATUS: ??SOUT ? REQ NUM: [id number] ? BRANDON: 03/08/238 ? SUBM DR: Jeff [...] 66, 68) ? HPV testing performed by [employer], [place], [place]. ??See reference laboratory ?? portion of the EMR for entire report. ?Clinical Information LMP: 03/05/23 Previous PAP test: Unknown date/findings ? Material Received ?? ThinPrep-Cervical Copies To: ?? Clare Mo MD ?? [address] ?? [place] [address] ? Jeff William MD ?? [address] [place] [address] [facility] [address] ?? [place] [address] ?? [phone] ----- ------- Signed (signature on file) Alondra Santillan 03/27/23 1523 ? ----- ------- ? END OF REPORT ? [facility] External Provider LAB [facility] ORDERABLES Final Result [facility] [address] [place] [address] [phone] documented in this encounter Visit Diagnoses Diagnosis Chronic low back pain with sciatica, sciatica laterality unspecified, unspecified back pain laterality documented in this encounter Care Teams Packaging Machine Operator Relationship Specialty Start Date End Date Clare Mo MD [address] [place] [phone] PCP - General Internal Medicine 03/17/17 documented as of this encounter
== END 2024-12-13 12:50 | disposition home or self-care (01) ==
LOC: HO.CHCLDS 12:49
PROVIDERS: Visit Provider Internal Medicine
DX: M54.2 Cervicalgia (principal); M25.572 Pain in left ankle and joints of left foot
CPT/HCPCS: 80307

== ENCOUNTER 2024-12-22 21:29 | Emergency (ER) | payer MEDICARE, MEDICAID, SELFPAY ==
[2024-12-22 21:45] VITALS: BP 147/83; PULSE 75; RESP 16; TEMP 36.3; O2SAT 100; BMI 31.3
--- NOTE | 2024-12-22 22:50 | ED_ITS ---
HPI - General Adult General Chief complaint: Neck Pain/Injury Stated complaint: buldging disk on the neck Time Seen by Provider: 12/22/24 22:50 History of Present Illness ED Provider: Gayathri VARGAS narrative: The patient is a 44-year-old woman comes to the emergency room complaining of pain in the left side of her neck that she says is chronic pain related to a bulging disc in her neck. She says that she is supposed to have surgery on her neck by Dr. Saenz of [facility]. She has not yet scheduled the surgery. She says that her pain has been worse over the last 2 weeks since a fall. She also says that she has developed a migraine headache today. No fever, sweats, chills. No bowel or bladder control symptoms. Related Data Home Medications ?Medication ?Instructions ?Recorded ?Confirmed alprazolam 1 mg tablet 1 mg PO DAILY PRN Anxiety 03/08/23 10/09/24 fluticasone propionate 50 spray intranasal 03/08/23 10/09/24 mcg/actuation nasal spray,suspension cyclobenzaprine 10 mg tablet 20 mg PO TID PRN muscle spasm 04/11/24 10/09/24 gabapentin 800 mg tablet 800 mg PO TID 04/26/24 10/09/24 oxycodone-acetaminophen 10 mg-325 1 tab PO QID PRN Pain 04/26/24 10/09/24 mg tablet magnesium 250 mg tablet 250 mg PO DAILY 10/09/24 10/09/24 multivitamin 1 tab PO DAILY 10/09/24 10/09/24 Previous Rx's ?Medication ?Instructions ?Recorded celecoxib 200 mg capsule (Celebrex) 200 mg PO BID 30 days #60 caps 10/09/24 Allergies Allergy/AdvReac Type Severity Reaction Status Date / Time morphine AdvReac Itching, Verified 12/22/24 21:50 rash Review of Systems Review of Systems: Yes all other systems are reviewed and are negative PMFSH Past Medical History Medical History Pinched vertebral nerve Cervical spondylarthritis Spondylolisthesis, cervical region Migraine NEC/not intrcbl Mood disorder Bipolar 1 disorder PTSD (post-traumatic stress disorder) Chronic low back pain without sciatica Panic disorder Neural foraminal stenosis of cervical spine Surgical History Hx of tubal ligation Hx of cholecystectomy S/P appendectomy Social History Social History (Updated 10/09/24 @ 13:48 by KARTIK Bender) Household Members: Significant Other Housing: Apartment Alcohol intake: current Alcohol intake frequency: a few times a week Alcohol type: beer Patient Tobacco Use Status: Former Tobacco user Tobacco use type: Cigarette Smoked in Last 30 Days: No Use of substances other than those prescribed or required for medical reasons: No Advance Directives: No Advance Directives Information Provided: No Do you have a plan to hurt others: No Plan Patient : No Current occupational status: disabled Current occupation: rt handed Sexual orientation: Straight/Heterosexual Gender identity: Female Physical Exam ED Vital Signs: Vital Signs - 24 hr 12/22/24 21:45 12/22/24 23:32 12/23/24 00:26 Temperature 97.4 F 97.8 F 98.0 F Pulse Rate 75 68 55 Respiratory Rate 16 18 18 Blood Pressure 147/83 H 98/43 L 128/52 L Pulse Oximetry 100 98 97 Oxygen Delivery Method Room Air Room Air Room Air 12/23/24 00:27 Temperature 98.0 F Pulse Rate 55 Respiratory Rate 18 Blood Pressure 128/52 L Pulse Oximetry 97 Oxygen Delivery Method Room Air BMI result Body Mass Index 31.3 Const Other: The patient was lying on a stretcher with a blanket pulled over her head. She said that she was very photophobic and therefore she has a blanket over her head. In a darkened room she was awake and alert with a normal mental status and said she was in a great deal of discomfort. HENMT Other: Face is symmetrical. Mucous membranes moist. The posterior pharynx is unremarkable. Eyes Other: Pupils are round equal, conjunctivae clear, extraocular movements intact. Neck Other: There is left-sided muscular neck tenderness. She is able to move the neck however. Resp Effort & Inspection: normal respiratory effort Auscultation: clear to auscultation bilaterally Cardio Rate: regular rate Rhythm: regular rhythm Heart sounds: S1 normal heart sound present and S2 normal heart sound present GI Other: Abdomen is soft and nontender Skin General skin exam: no rashes or lesions noted Neuro Other: The patient was awake and alert with a normal mental status. Pupils are round, equal, reactive to light, extraocular movements were intact, face is symm etrical, speech is clear. She is able to move her extremities normally. She has good park police strength in both hands . She has 2+ reflexes of the knees and ankles. She has good park police strength in her arms. Extrem Other: No peripheral edema. Medications Administered Discontinued Medications Generic Name Dose Route Start Last Admin Trade Name Freq PRN Reason Stop Dose Admin Diphenhydramine HCl 25 mg 12/22/24 23:08 12/22/24 23:27 Diphenhydramine Hcl 25 Mg Capsule PO 12/22/24 23:09 25 mg ONCE ONE Administration Diphenhydramine HCl 25 mg 12/23/24 00:13 12/23/24 00:17 Diphenhydramine Hcl 50 Mg/Ml Vial IVPUSH 12/23/24 00:14 Not Given ONCE ONE Sodium Chloride 1,000 mls @ 999 mls/hr 12/22/24 23:15 12/23/24 00:28 Ns IV 12/23/24 00:15 Infused .Q1H1M TOBI Infusion Ketorolac Tromethamine 10 mg 12/22/24 23:08 12/22/24 23:25 Ketorolac Tromethamine 15 Mg/Ml Vial IVPUSH 12/22/24 23:09 10 mg ONCE ONE Administration Lorazepam 1 mg 12/23/24 00:13 12/23/24 00:18 Lorazepam 1 Mg Tablet PO 12/23/24 00:14 1 mg ONCE ONE Administration Oxycodone HCl 10 mg 12/23/24 00:13 12/23/24 00:18 Oxycodone Hcl Immed Release 5 Mg Tablet PO 12/23/24 00:14 10 mg ONCE ONE Administration Prochlorperazine Edisylate 10 mg 12/22/24 23:08 12/22/24 23:27 Prochlorperazine Edisylate 10 Mg/2 Ml Vial IVPUSH 12/22/24 23:09 10 mg ONCE ONE Administration Medical Decision Making Medical Decision Making [facility] Narrative: The patient is a 44-year-old woman who presented complaining of chronic left- sided neck pain and also a migraine headache. I think she is neurologically intact. The patient requested that a urine drug screen be run. She feels that her primary care provider might be concerned that she is inappropriately using drugs and she would like to have documentation of what is in her system. The patient was treated initially for a migraine headache with ketorolac, proc hlorperazine, and diphenhydramine and IV fluids. She said that perhaps her migraine headache got a little bit better but her neck pain was no better and she requested discharge. She was given a dose of 10 mg of oxycodone and 1 mg of lorazepam p.o.. I had recommended that we give her another dose of IV diphenhydramine in case she was feeling some degree of restlessness from the prochlorperazine but she did not want any diphenhydramine. She was then discharged to follow up with the regular providers. She was ambulatory at discharge. Lab Data Labs: Lab Results 12/22/24 Range/Units 23:40 Urine Opiates Screen Not Detected (Not Detect) Ur Buprenorphine Scrn Not Detected (Not Detect) ng/mL Ur Oxycodone Screen Not Detected (Not Detect) ng/mL Urine Methadone Screen Not Detected (Not Detect) ng/mL Urine Fentanyl Screen Not Detected (Not Detect) Ur Barbiturates Screen Not Detected (Not Detect) Ur Phencyclidine Scrn Not Detected (Not Detect) Ur Amphetamines Screen Not Detected (Not Detect) U Benzodiazepines Scrn POSITIVE H (Not Detect) Urine Cocaine Screen Not Detected (Not Detect) U Marijuana (THC) Screen POSITIVE H (Not Detect) Discharge Plan Discharge Clinical Impression: Migraine headache, Chronic neck pain Patient Disposition: Home, Self-Care Additional Instructions: Please continue your regular medications. Please follow up with your regular doctors. Return to the emergency room if worse. Prescriptions: No Action cyclobenzaprine 10 mg tablet 20 mg PO TID PRN (Reason: muscle spasm) magnesium 250 mg tablet 250 mg PO DAILY multivitamin Tablet 1 tab PO DAILY celecoxib [Celebrex] 200 mg capsule 200 mg PO BID 30 Days Qty: 60 3RF alprazolam 1 mg tablet 1 mg PO DAILY PRN (Reason: Anxiety) fluticasone propionate 50 mcg/actuation spray,suspension intranasal oxycodone-acetaminophen 10-325 mg tablet 1 tab PO QID PRN (Reason: Pain) gabapentin 800 mg tablet 800 mg PO TID Referrals: Clare Mo MD [Primary Care Provider] - (neck pain, migraine) Interventions: ED Discharge Assessment Last Done: 12/23/24 00:27 Discharge Date/Time: 12/23/24 00:27 Print Language: Wallisian
[2024-12-22] MEDS: 0.9 % Sodium Chloride 1,000 ML 999 ML IV (23:25)
[2024-12-22] MEDS: Ketorolac Tromethamine 15 MG/ML VIAL 10 MG IVPUSH (23:25)
[2024-12-22] MEDS: Prochlorperazine Edisylate 10 MG/2 ML VIAL IVPUSH (23:27)
[2024-12-22] MEDS: diphenhydrAMINE HCL 25 MG CAPSULE PO (23:27)
[2024-12-22 23:32] VITALS: BP 98/43; PULSE 68; RESP 18; TEMP 36.6; O2SAT 98
[2024-12-22 23:57] LABS: Amphetamine Screen Urine Not Detected (Not Detect); Barbiturates, Urine Not Detected (Not Detect); Benzodiazepines Screen Urine POSITIVE (Not Detect); Buprenorphine Scr Not Detected (Not Detect); Cannabinoid Screen Urine POSITIVE (Not Detect); Cocaine Screen Urine Not Detected (Not Detect); Fentanyl, urine Not Detected (Not Detect); Methadone Screen, Urine Not Detected (Not Detect); Opiate Screen Urine Not Detected (Not Detect); Oxycodone Screen Urine Not Detected (Not Detect); Phencyclidine Screen Urine Not Detected (Not Detect)
[2024-12-23] MEDS: oxyCODONE HCl Immed Release 5 MG TABLET 10 MG PO (00:18)
[2024-12-23] MEDS: LORazepam 1 MG TABLET PO (00:18)
[2024-12-23 00:26] VITALS: BP 128/52; PULSE 55; RESP 18; TEMP 36.7; O2SAT 97
[2024-12-23 00:27] VITALS: BP 128/52; PULSE 55; RESP 18; TEMP 36.7; O2SAT 97
== END 2024-12-23 00:27 | disposition home or self-care (01) ==
PROVIDERS: Emergency Provider Emergency Medicine; PCP Internal Medicine
DX: G43.909 Migraine, unspecified, not intractable, without status migrainosus (principal); M54.2 Cervicalgia; G89.29 Other chronic pain; Z87.891 Personal history of nicotine dependence; Z79.899 Other long term (current) drug therapy; Z51.81 Encounter for therapeutic drug level monitoring
CPT/HCPCS: 80307; 96361; 96374; 96375; 99284; J0737; J1885

== ENCOUNTER 2025-02-28 12:29 | Outpatient (REF) | payer OTHER, SELFPAY ==
--- OUTSIDE RECORDS SUMMARY | 2025-02-28 14:19 | XMS_ITS | Encounter Summary ---
Author Organization [employer] Address [address] [place] [address] Care Team Providers Care Gasket Supervisor Name Role Phone Clare Mo MD Primary Care Provider [phone] Encounter Details Date Type Department Care Team ([facility] Contact Info) Description 09/29/2024 Orders Only [facility] [address] [place], [place] [id number] Clare Mo MD [address] [place] [address] Social History Tobacco Use Types Packs/Day Years [...] Care Team (Late st Contact Info) Description 04/13/2025 9:00 AM EDT Office Visit [facility] [address] [place] [address] AndrewSita deleon, OD [address] [place] [address] 05/01/2025 11:00 AM EDT Clinical Support [facility] [address] [place] [address] Evelina Pimentel, WILBER [address] [place] [address] documented as of this encounter Visit Diagnoses Not on filedocumented in this encounter Care Teams Gasket Supervisor Relationship Specialty Start Date End Date Clare Mo MD [address] [place] [address] PCP - General Internal Medicine 03/17/17 documented as of this encounter
[2025-02-28 14:20] LABS: MANUAL DIFF FLAG NO
[2025-02-28 14:27] LABS: Basophils Percent Auto 0.7 % (0-2); Eosinophils Absolute Auto 0.1 X10*3/uL (0.0-0.4); Hematocrit 37.7 % (37.0-47.0); Hemoglobin 13.3 g/dl (12.0-16.0); Imm Gran Abs Auto 0.01 X10*3/uL (0.00-0.03); Imm Gran Pct Auto 0.2 % (0.0-0.4); Lymphocytes Absolute Auto 1.5 X10*3/uL (1.2-4.9); Mean Corpuscular HGB Conc 35.3 g/dl (31.0-35.0); Mean Corpuscular Hemoglobin 32.2 pg (27.0-33.0); Mean Corpuscular Volume 91.3 fL (80.0-98.0); Mean Platelet Volume 11.1 fL (9.4-12.3); Monocytes Absolute Auto 0.4 X10*3/uL (0.1-1.2); Monocytes Percent Auto 8.8 % (2-11); Neutrophils Absolute Auto 2.3 x10*3/uL (2.0-8.3); Neutrophils Percent Auto 52.3 % (45-73); Platelet Count 233 X10*3/uL (160-400); Red Blood Count 4.13 X10*6/uL (4.20-5.50); Red Cell Distribution Width 11.9 % (11.0-16.0); White Blood Count 4.3 X10*3/uL (4.8-10.8)
[2025-02-28 14:55] LABS: Alanine Aminotransferase 34 U/L (0-31); Alkaline Phosphatase 66 U/L (39-117); Anion Gap 9 (12-20); Aspartate Amino Transferase 31 U/L (5-31); Bilirubin Total 0.3 mg/dL (0.0-1.0); Blood Urea Nitrogen 15 mg/dL (9-16); Calcium 9.3 mg/dL (8.4-10.2); Carbon Dioxide 27 mmol/L (22-29); Chloride 110 mmol/L (96-108); Cholesterol 181 mg/dL (<200); Estimated Glomerular Filt Rate > 60; Glucose Random 103 mg/dL (60-115); HDL Cholesterol 64 mg/dL (>40); LDL Cholesterol Calculated 95 mg/dL (<100); Potassium 4.1 mmol/L (3.3-5.1); Sodium 142 mmol/L (135-145); Total Protein 6.4 g/dL (6.5-8.0); Triglycerides 111 mg/dL (<150)
[2025-02-28 15:00] LABS: TSH reflex Free T4 1.51 uIU/mL (0.32-4.0)
[2025-03-01 08:42] LABS: HIV AB/AG Nonreactive (Nonreactive); HIV Num 1 0.07 S/CO (0.00-0.99); ~Hepatitis C Antibody Nonreactive (Nonreactive)
== END 2025-02-28 12:30 | disposition home or self-care (01) ==
LOC: HO.CHCLDS 12:29
PROVIDERS: Visit Provider Internal Medicine
DX: Z00.00 Encounter for general adult medical examination without abnormal findings (principal); D72.819 Decreased white blood cell count, unspecified; E78.00 Pure hypercholesterolemia, unspecified
CPT/HCPCS: 36415; 80053; 80061; 84443; 85025; 86803; 87389

== ENCOUNTER 2025-03-21 22:25 | Emergency (ER) | payer OTHER, SELFPAY ==
--- NOTE | ~2025-03-21 | XR_ITS ---
CLINICAL HISTORY: pain 3 views lumbar spine Comparison: CR/SR - XR LUMBAR SPINE 2-3V - 05/03/22 23:45 EDT Findings: Normal alignment. No acute fractures or dislocation. No significant degenerative change. IMPRESSION: No acute findings. This document has been electronically signed by: Ralph Barahona MD on 03/21/2025 23:39:21
--- NOTE | ~2025-03-21 | XR_ITS ---
CLINICAL HISTORY: pain 5 views cervical spine Comparison: None provided Findings: Straightening of the cervical lordosis. No acute fractures or dislocation. Anterior cervical discectomy and fusion hardware noted at C4-C6. No significant degenerative change. Prevertebral soft tissues within normal limits. IMPRESSION: No acute findings. This document has been electronically signed by: Ralph Barahona MD on 03/21/2025 23:38:17
[2025-03-21 22:28] VITALS: BP 111/64; PULSE 85; RESP 20; TEMP 37; O2SAT 97; BMI 30.7
--- OUTSIDE RECORDS SUMMARY | 2025-03-21 23:16 | XMS_ITS | Clinical Summary ---
Author Organization [facility] Address [address] [place] [address] Phone Care Team Providers Care Director Inbound Sales Name Role Phone Clare Mo MD Primary Care Provider [phone] Allergies No known active allergies Medications cyclobenzaprine (FLEXERIL) 10 mg tablet Take 1 Tablet by mouth 3 times daily as needed. Active ALPRAZolam (XANAX) 1 mg tablet Take 1 tablet (1 mg total) by mouth 1 (one) time each day if needed. for anxiety 07/20/2024 Active oxyCODONE-aceta minophen (PERCOCET) 10-325 mg per tablet Take 1 tablet by mouth every 6 (six) hours if needed for severe pain. 07/14/2024 Active cholecalciferol (VITAMIN D-3) 25 mcg (1,000 unit) tablet Take 1 tablet (1,000 Units total) by mouth 1 (one) time each day. Active magnesium 250 mg tablet Take by mouth. Active tiZANidine (ZANAFLEX) 4 mg tablet Take 1 tablet (4 mg total) by mouth every 6 hours as needed. 12/11/2024 Active pregabalin (LYRICA) 200 mg capsule Take 1 capsule (200 mg total) by mouth 2 times daily. 12/18/2024 Active B complex-vitamin C-vitamin E-zinc tablet Take 1 tablet by mouth 1 (one) time each day. Active Active Problems Problem Noted Date Diagnosed Date Radiculopathy, cervical region 01/15/2025 Left hip pain 09/19/2024 Assessment & Plan (09/20/2024 10:06 AM EST): Ms. Ramirez describes significant pain at the left hip. She had pain with hip mechanical testing on the left hand side. She was tender at the greater trochanter. She had x-rays of the hip performed at [facility] on 08/01/24. They revealed calcific tendinitis [...] arms overhead, she had to ask the binder technician to help her move her arms [...] to her next appointment. Assessment & Plan (02/14/2025 9:41 PM EDT): Pt is 12 days s/p C4-5, C5-6 ACDF. She notes some improvements in her preop symptoms, like her migraines are no longer constant, no longer has constant left sided numbness, + residual numbness in 3rd and 4th digits, some pain in left shoulder and elbow. As expected postop has common c/o intrascapular pain, mild dysphagia/sore throat. Denies drooling, choking. Has been basically eating soups. Earlier today before coming in she had an episode that sounds like ? Syncope, was getting up off the toilet and woke up on the floor, her boyfriend heard her fall and came right in, has some left hip pain. Denies palpitations, SOB, CP, nausea. She has h/o shoulder pain, feels her L>R shoulder pain is worse. She is taking her pain med approx Q8h, no negative side effects like lethargy. Ms. Ramirez is doing well postop in terms of improvement in UE symptoms, decreased QUACH's. I put a call into her PCP office to see if they can see her this week for possible syncopal episode. I ordered b/l shoulder x-rays to do now, and entered C/S X- rays to do in 6 weeks for her 2nd postop visit with Dr. Suggs when she is back from [place] (March 23). I asked her to call if she needs to be seen prior to traveling. All postop questions answered, she will call with any questions or concerns. Assessment & Plan (01/12/2025 1:40 PM EDT): I reviewed the new MRI with Ms. Sorin joyner and her . It is similar to her previous studies showing mild kyphosis at C4-5, moderate stenosis from disc osteophytes at C4-5 and C5-6 which I believe would benefit from surgery and reduce her axial neck pain as well as some of the tingling in her arms. We have discussed this before but again reviewed the details, risks, benefits and anticipated postoperative course of a C4-5, C5-6 ACDF with plating. I recommended that she do this before her trip to [place] in March as she will be well on her way to recovery and will enjoy the trip more. I also reassured her that there was no cord compression or signal change in the cord that would cause weakness or gait imbalance. Assessment & Plan (10/17/2024 2:32 PM EST): I reviewed the cervical spine MRI from last year again with Ms. Sorin joyner noting 3 level degenerative disc disease, mild [...] & Plan (09/19/2024 4:14 PM EST): Ms. Ramirez continues to describe neck pain with radiation to her interscapular region and both arms. An MRI of the cervical spine from January of this year at [facility] veal degenerative changes most significant at C5-6 [...] told her she likely has fibromyalgia. Saw lsw, was started on vitamin D, magnesium, vitamin [...] issues with fever or wound drainage. Ms. Ramirez is doing well postop, hopefully will note continued improvement with time as things heal. She can follow-up with Dr. Suggs for second postop visit, patient states she is on vacation for couple weeks in March, will be back after the , we scheduled her appointment. I asked her to call with any concerns or questions prior to that time. Assessment & Plan (01/12/2025 1:44 PM EDT): Ms. Sorin joyner continues to describe left hip and leg pain since her fall while evacuating from a fire alarm. The new lumbar spine MRI does not show a fracture or recurrent disc herniation. There is a mild left L2-3 disc herniation just abutting the descending L3 root which is stable from her prior scan. Theoretically, this could cause groin/proximal thigh pain or weakness but her description is much more focal at the hip then involving the entire leg. I would not treat this at this junction. She is looking forward to starting treatment to [facility] hopefully this will provide her some relief. Assessment & Plan (07/28/2024 4:06 PM EST): [...] lumbar cortisone injections back in 2020 at [facility]. She has been walking with a walker. Ms. Ramirez describes left low back, buttock, hip and foot pain. She is having to walk with a walker, feels her balance is poor. We can check updated lumbar spine MRI with and without contrast to rule out recurrent disc herniation/nerve root compression. She would also like to be referred back to [facility] to see if they would offer left SI joint injection, she has tenderness over the SI joint, pain in the SI joint region with external hip rotation. She will go for the hip x-rays (already ordered by PCP) this coming week. We will follow-up with her after imaging is complete. Encounters Date Type Department Care Team Description 02/19/2025 Telephone [address] [phone] Keli Suggs MD 02/13/2025 2:30 PM EDT Office Visit Neurosurgery [address] [phone] Georgia Huynh PA Cervical spondylosis (Primary Dx); Chronic pain of both shoulders 02/13/2025 Telephone Neurosurgery [address] [phone] Maria Esther Elena MA 02/01/2025 10:49 AM EDT Anesthesia Event [facility] OR [address] [place] [phone] Satinder Luna MD 02/01/2025 9:30 AM EDT - 02/01/2025 12:00 PM EDT Surgery [facility] OR [address] [place] [phone] Keli Suggs MD C4-5 C5-6 anterior cervical discectomy & fusion [72227 (CPT ) +3 more] 02/01/2025 7:55 AM EDT - 02/01/2025 4:08 PM EDT Hospital Encounter [facility] Main OR [address] [place] [phone] Keli Suggs MD Discharge Disposition: Home or Self Care 02/01/2025 7:05 AM EDT - 02/01/2025 11:59 PM EDT Hospital Encounter [facility] Xray [address] [place] [phone] Pain Discharge Disposition: Home or Self Care 01/12/2025 1:00 PM EDT Office Visit Neurosurgery [facility] [address] [place] [phone] Keli Suggs MD Cervical spondylosis (Primary Dx); Lumbar disc herniation with radiculopathy 01/10/2025 3:12 PM EDT - 01/10/2025 11:59 PM EDT Hospital Encounter [facility] MRI [address] [place] [phone] Spinal stenosis, cervical region Discharge Disposition: Home or Self Care 01/10/2025 3:12 PM EDT - 01/10/2025 11:59 PM EDT Hospital Encounter [facility] MRI [address] [place] [phone] Spinal stenosis Discharge Disposition: Home or Self Care 12/27/2024 Telephone Neurosurgery 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 Asked that we please follow up with her. Best phone [phone] to please call back. Thank you ) from Last 3 Months Immunizations Name Administration [...] History Surgery Date Site/Laterality Comments APPENDECTOMY N/A TUBAL LIGATION N/A with subsequent reversal in 2017, ectopic in 2019 NECK SURGERY 08/04/2021 s/p left C7-T1 discectomy, Dr. Suggs BACK SURGERY 02/15/2024 Left L4-5 MIS discectomy, Dr. Suggs SPINE SURGERY CERVICAL DISCECTOMY 02/01/2025 C4-5, C5-6 ACDF, Dr. Suggs CHOLECYSTECTOMY Medical History Medical History Date Comments Migraine Change in weight History of fainting 2023 low BP Memory difficulties Difficulty concentrating Blurred vision Loss of sensation Anxiety and depression Rheumatoid arthritis (CMS/HC C V24, CMS/HCC V28) Ringing in ears Breast pain chronic; infreq left breast discharge CTS (carpal tunnel syndrome) catie ateral Social History Tobacco Use Types Packs/Day Years Used Date Smoking Tobacco: Never Smokeless Tobacco: Never Tobacco Cessation:Counseling Given: Not Answered Alcohol Use Standard Drinks/Week Comments Not Currently 0 (1 standard drink = 0.6 oz pur e alcohol) Interpersonal Safety Answer Date Record ed Physical Abuse 02/01/2025 Verbal Abuse 02/01/2025 Comments No Sex and Gender Information Value Date Recorded Sex Assigned at Not on file Legal Sex Female 2:55 AM EST Gender Identity Not on file Sexual Orientation Not on file Obstetrics History Last Filed Vital Signs Vital Sign Reading Time Taken Comments Blood Pressure 119/63 02/01/2025 3:05 PM EDT Pulse 69 02/01/2025 3:05 PM EDT Temperature 36.4 C (97.6 F) 02/01/2025 3:05 PM EDT Respiratory Rate 14 02/01/2025 2:45 PM EDT Oxygen Saturation 100% 02/01/2025 3:05 PM EDT Inhaled Oxygen Concentration - - Weight 85.7 kg (189 lb) 02/13/2025 2:38 PM EDT Height 167.5 cm (5' 5.95 ) 02/13/2025 2:38 PM ED T Body Mass Index 30.55 02/13/2025 2:38 PM EDT Plan of Treatment Upcoming Encounters Date Type Department Care Team (Late st Contact Info) Description 04/06/2025 11:15 AM EDT Office Visit [facility] [address] [place] [phone] Keli Suggs MD [address] [place] [address] Health Maintenance Due Date Last Done Comments Breast Cancer Screening 1978 Hepatitis B Vaccines (1 of 3 - 19+ 3-dose series) 1997 Colorectal Cancer Screening: Colonoscopy 08/16/2022 Depression Screening 08/16/2022 HIV Screening 08/16/2022 Hepatitis C Screening 08/16/2022 Medicare Annual Wellness Visit 08/16/2022 Social Influencers of Health Screening 08/16/2022 COVID-19 Vaccine ( season) 2024 08/27/2023, 02/26/2023, 02/26/2023, Additional history exists Influenza Vaccine (#1) 2025 , 06/17/2021, 06/05/2019, Additional history exists Cervical [...] age to complete this topic Meningococcal B Vaccine Aged Out No l onger eligible based on patient's age to complete this topic Pneumococcal Vaccine: Pediatrics (0 to 5 Years) and At-Risk Patients (6 to 49 Years) Aged Out No longer eligible based on patient's age to complete this topic RSV Immunization Patients Under 20 months Aged Out No longer eligible based on patient's age to complete this topic Varicella Vaccines Aged Out No longer eligible based on patient's age to complete this topic Medical Devices Implanted Type Area Community Worker Device Identifier Shelf Expiration Date Model / Serial / Lot L-Asr Tay Canc [id number] Fd Fee - [id number] - [id number] Implanted:Qty : 1 on 02/01/2025 by Keli Suggs MD at [facility] [employer] Bone N/A: Spine Cervical [employer] 01/27/2026 [id number] / [id number] / [id number] L-Asr Tay Canc [id number] Fd Fee - [id number] - [id number] Implanted:Qty : 1 on 02/01/2025 by Keli Suggs MD at [facility] [employer] Bone N/A: Spine Cervical [employer] 04/22/2026 [id number] / [id number] / [id number] Powder Surgifoam Absorb Gel - Sna - [id number] Implanted:Qty : 1 on 02/01/2025 by Keli Suggs MD at [facility] [employer] N/A: Spine Cervical [employer] 10/26/20261977 / NA / [id number] Plate Spin Cerv Ant Zevo 35mm - Sna - [id number] Implanted:Qty : 1 on 02/01/2025 by Keli Suggs MD at [facility] Spinal Hardware N/A: Spine Cervical [employer] SOFAMOR DANEK [id number] / NA / NA Screw Cerv [address] 13x3.5mm - Sna - [id number] Implanted:Qty : 6 on 02/01/2025 by Keli uSggs MD at [facility] Spinal Hardware N/A: Spine Cervical [employer] SO[employer] [id number] / NA / NA Procedures Procedure Name Priority Date/Time Associated Diagnosis Comments OXYGEN THERAPY, ADULT Routine 02/01/2025 1:23 PM EDT OXYGEN THERAPY, ADULT Routine 02/01/2025 1:23 PM EDT XR SPINE 1 VIEW Routine 02/01/2025 12:59 PM EDT Pain TH AN ENDOTRACHEAL(NO CHARGE) Routine 02/01/2025 11:35 AM EDT MS ALLOGRAFT STRUCTURAL SPINE SURGERY ONLY 02/01/2025 10:48 AM EDT Radiculopathy, cervical region Case Notes C-ARM, MIDAS, [employer] ZEVO, CORNERSTONE MS INSTRUMENTATION ANTERIOR 2-3 VERTEBRAL SEGMENTS 02/01/2025 10:48 AM EDT Radiculopathy, cervical region Case Notes C-ARM, MIDAS, [employer] ZEVO, CORNERSTONE MS ARTHRDS ANTERIOR I-B CERVICAL BELOW C2 EACH ADDITIONAL INTERSPACE 02/01/2025 10:48 AM EDT Radiculopathy, cervical region Case Notes C-ARM, MIDAS, [employer] ZEVO, CORNERSTONE MS ARTHRDS ANT I-B DISCECTOMY DECMPR SPINAL CORD/NERVE ROOTS CERV BELOW C2 02/01/2025 10:48 AM EDT Radiculopathy, cervical region Case Notes C-ARM, MIDAS, [employer] ZEVO, CORNERSTONE MR CERVICAL SPINE WO CONTRAST Routine 01/10/2025 4:50 PM EDT Spinal stenosis, cervical region MR LUMBAR SPINE WO CONTRAST Routine 01/10/2025 4:50 PM EDT Spinal stenosis from Last 3 Months Results * XR Spine 1 View (02/01/2025 12:59 PM EDT) Anatomical Region Laterality Modality Spine Radio Fluoroscop y 02/03/2025 2:46 PM EDT Narrative 02/03/2025 2:47 PM EDT INDICATION: Spinal surgery for anterior cervical decompression and fusion FINDINGS: Intraoperative radiographs obtained. Initial lateral view with immediate read demonstrates localization of C4-C5.. Subsequent images demonstrate surgical instruments/hardware at the C4, C5 and C6 levels. Total patient dose (air kerma): 3.2 mGy CONCLUSION: Intraoperative localization of C4-C5. -------- FINAL REPORT -------- Dictated By: Edith Rangel Dictated Date: 02/03/2025 14:46 ET Assigned Physician: Edith Rangel Reviewed and Electronically Signed By: Edith Rangel Signed Date: 02/03/2025 14:47 ET Workstation ID: [id number] Transcribed By: Self Edit Transcribed Date: 02/03/2025 14:46 ET Procedure Note Edith Rangel MD - 02/03/2025 INDICATION: Spinal surgery for anterior cervical decompression andfusion FINDINGS: Intraoperative radiographs obtained. Initial lateral view withimmediate read demonstrates localization of C4-C5.. Subsequent imagesdemonstrate surgical instruments/hardware at the C4, C5 and C6 levels. Total patient dose (air kerma): 3.2 mGy CONCLUSION: Intraoperative localization of C4-C5. -------- FINAL REPORT -------- Dictated By: Edith Rangel Dictated Date: 02/03/2025 14:46 ET Assigned Physician: Edith Rangel Reviewed and Electronically Signed By: Edith Rangel Signed Date: 02/03/2025 14:47 ET Workstation ID: [id number] Transcribed By: Self Edit Transcribed Date: 02/03/2025 14:46 ET us Keli Suggs MD IMG XR PROCEDURES Final Result * TH AN ENDOTRACHEAL(NO CHARGE) (02/01/2025 11:35 AM EDT) Sandra Aparicio CRNA - 02/01/2025 11:35 AM EDT Sandra Estrada CRNA 02/01/2025 11:41 AM General Information and Staff Patient location during procedure: OR Anesthesiologist: Satinder Luna MD Resident/BLOOD BANK COORDINATOR: Sandra Estrada CRNA Other anesthesia staff: MAGDALENA Nieves Performed: other anesthesia staff Performed by: Sandra Estrada CRNA Authorized by: Satinder Luna MD Intubation Urgency: elective Final Airway Details Successful airway: ETT Cuffed: yes Successful intubation technique: video laryngoscopy Endotracheal tube insertion site: oral Blade: Mat Blade size: #3 ETT size (mm): 7.0 Cormack-Lehane Classification: grade I - full view of glottis Placement verified by: chest auscultation and capnometry Measured from: lips ETT to lips (cm): 22 Number of attempts at approach: 1 Number of other approaches attempted: 0Final airway type: endotracheal airway Indications and Patient Condition Indications for airway management: anesthesia Preoxygenated: yes Soft Tissue Damage: No Dentition Unchanged: Yes Patient position: neutral Mask difficulty assessment: 2 - vent by mask + OA or adjuvant +/- NMBA us Satinder Luna MD ANESTHESIA ORDERABLES Final Re sult * MR Cervical Spine wo Contrast (01/10/2025 4:50 PM EDT) Anatomical Region Laterality Modality C-spine, Spine Magnetic Resonan ce 01/10/2025 6:16 PM EDT Impressions 01/10/2025 6:25 PM EDT Multilevel degenerative changes with moderate spinal canal stenosis at C4-5 and C5-6. No cord signal abnormality. Foraminal stenoses most pronounced on the right at C5-6 as well as on the left at C6-7. -------- FINAL REPORT -------- Dictated By: ABDI DICKSON Dictated Date: 01/10/2025 18:16 ET Assigned Physician: ABDI DICKSON Reviewed and Electronically Signed By: ABDI DICKSON Signed Date: 01/10/2025 18:25 ET Workstation ID: [id number] Transcribed By: Self Edit Transcribed Date: 01/10/2025 18:16 ET Narrative 01/10/2025 6:25 PM EDT PROCEDURE: Cervical spine MRI INDICATION: Pain, foraminal stenosis TECHNIQUE: Multiplanar, multisequence MRI of the Cervical spine Without contrast. COMPARISON: No priors available. FINDINGS: Straightening of the normal cervical lordosis with slight reversal at C5. No fracture or suspicious marrow replacing lesion. Degenerative loss of normal disc height and signal with associated degenerative discogenic endplate changes most pronounced at 4 5, C5-6, and C6-7. Degenerative type I Modic endplate changes are seen at C6-7. Mild multilevel degenerative facet arthritis, most pronounced at C7-T1. Cervical cord is normal in signal and morphology. No epidural collection or mass is seen within the spinal canal. Paraspinal muscles are within normal limits. Foramen magnum is normal. Findings by level: C2-C3: No focal disc protrusion, foraminal stenosis, or spinal canal stenosis. C3-C4: No focal disc protrusion, foraminal stenosis, or spinal canal stenosis. C4-C5: Posterior disc osteophyte complex and bilateral uncovertebral spurring resulting in mild foraminal stenosis bilaterally and moderate spinal canal stenosis. C5-C6: Posterior disc osteophyte complex with right greater than left uncovertebral spurring resulting in moderate right and mild left foraminal stenosis. Moderate spinal canal stenosis. C6-C7: Posterior disc osteophyte complex with left greater than right uncovertebral spurring resulting in moderate left and mild right foraminal stenosis. Mild spinal canal stenosis. C7-T1: Left greater than right uncovertebral spurring and facet arthropathy resulting in mild left and no right foraminal stenosis. No spinal canal stenosis. Procedure Note Abdi Dickson MD - 01/10/2025 PROCEDURE: Cervical spine MRI INDICATION: Pain, foraminal stenosis TECHNIQUE: Multiplanar, multisequence MRI of the Cervical spine Withoutcontrast. COMPARISON: No priors available. FINDINGS: Straightening of the normal cervical lordosis with slight reversal atC5. No fracture or suspicious marrow replacing lesion. Degenerative loss of normal disc height and signal with associateddegenerative discogenic endplate changes most pronounced at 4 5, C5-6, andC6-7. Degenerative type I Modic endplate changes are seen at C6-7. Mild multilevel degenerative facet arthritis, most pronounced at C7-T1. Cervical cord is normal in signal and morphology. No epidural collectionor mass is seen within the spinal canal. Paraspinal muscles are within normal limits. Foramen magnum is normal. Findings by level: C2-C3: No focal disc protrusion, foraminal stenosis, or spinal canalstenosis. C3-C4: No focal disc protrusion, foraminal stenosis, or spinal canalstenosis. C4-C5: Posterior disc osteophyte complex and bilateral uncovertebralspurring resulting in mild foraminal stenosis bilaterally and moderatespinal canal stenosis. C5-C6: Posterior disc osteophyte complex with right greater than leftuncovertebral spurring resulting in moderate right and mild left foraminalstenosis. Moderate spinal canal stenosis. C6-C7: Posterior disc osteophyte complex with left greater than rightuncovertebral spurring resulting in moderate left and mild right foraminalstenosis. Mild spinal canal stenosis. C7-T1: Left greater than right uncovertebral spurring and facetarthropathy resulting in mild left and no right foraminal stenosis. Nospinal canal stenosis. IMPRESSION: Multilevel degenerative changes with moderate spinal canal stenosis atC4-5 and C5-6. No cord signal abnormality. Foraminal stenoses most pronounced on the right at C5-6 as well as on theleft at C6-7. -------- FINAL REPORT -------- Dictated By: ABDI DICKSON Dictated Date: 01/10/2025 18:16 ET Assigned Physician: ABDI DICKSON Reviewed and Electronically Signed By: ABDI DICKSON Signed Date: 01/10/2025 18:25 ET Workstation ID: [id number] Transcribed By: Self Edit Transcribed Date: 01/10/2025 18:16 ET us Clare Mo MD IMG MRI PROCEDURES Final Result * MR Lumbar Spine wo Contrast (01/10/2025 4:50 PM EDT) Anatomical Region Laterality Modality L-spine, Spine Magnetic Resonan ce 01/10/2025 5:56 PM EDT Impressions 01/10/2025 6:16 PM EDT Multilevel degenerative changes throughout the lumbar spine, similar compared to 08/08/2024. No high-grade foraminal or spinal canal stenosis. -------- FINAL REPORT -------- Dictated By: ABDI DICKSON Dictated Date: 01/10/2025 17:56 ET Assigned Physician: ABDI DICKSON Reviewed and Electronically Signed By: ABDI DICKSON Signed Date: 01/10/2025 18:16 ET Workstation ID: [id number] Transcribed By: Self Edit Transcribed Date: 01/10/2025 17:56 ET Narrative 01/10/2025 6:16 PM EDT PROCEDURE: Lumbar spine MRI INDICATION: Stenosis TECHNIQUE: Multiplanar, multisequence MRI of the Lumbar spine Without contrast. COMPARISON: 08/08/2024. FINDINGS: Lumbar lordosis is preserved. Levoconvex thoracolumbar scoliosis is unchanged. No fracture or suspicious marrow replacing lesion. Right T10-11 perineural cyst is unchanged. Degenerative loss of normal disc height and signal throughout the lumbar spine, most pronounced at L5-S1. Lower lumbar predominant degenerative facet arthritis Conus medullaris is normal and terminates at L1-2. No epidural collection or mass is seen within the spinal canal. Paraspinal muscles are normal. Findings by level: L1-2: No focal disc protrusion, foraminal stenosis, or spinal canal stenosis. L2-3: Diffuse disc bulge, eccentric to the left. Superimposed left paracentral annular tear and small extrusion contacting the descending left L3 nerve in the subarticular zone, similar compared to prior. Mild left and no right foraminal stenosis. No spinal canal stenosis. Findings are unchanged. L3-4: No focal disc protrusion, foraminal stenosis, or spinal canal stenosis. L4-5: Diffuse disc bulge with endplate spurring, similar compared to prior. Mild right and no left foraminal stenosis. No spinal canal stenosis. Findings are similar compared to prior. L5-S1: Diffuse disc bulge with endplate spurring. Mild left and no right foraminal stenosis. No spinal canal stenosis. Findings are similar compared to prior. Procedure Note Abdi Dickson MD - 01/10/2025 PROCEDURE: Lumbar spine MRI INDICATION: Stenosis TECHNIQUE: Multiplanar, multisequence MRI of the Lumbar spine Withoutcontrast. COMPARISON: 08/08/2024. FINDINGS: Lumbar lordosis is preserved. Levoconvex thoracolumbar scoliosis isunchanged. No fracture or suspicious marrow replacing lesion. Right T10-11 perineural cyst is unchanged. Degenerative loss of normal disc height and signal throughout the lumbarspine, most pronounced at L5-S1. Lower lumbar predominant degenerative facet arthritis Conus medullaris is normal and terminates at L1-2. No epidural collectionor mass is seen within the spinal canal. Paraspinal muscles are normal. Findings by level: L1-2: No focal disc protrusion, foraminal stenosis, or spinal canalstenosis. L2-3: Diffuse disc bulge, eccentric to the left. Superimposed leftparacentral annular tear and small extrusion contacting the descendingleft L3 nerve in the subarticular zone, similar compared to prior. Mildleft and no right foraminal stenosis. No spinal canal stenosis. Findingsare unchanged. L3-4: No focal disc protrusion, foraminal stenosis, or spinal canalstenosis. L4-5: Diffuse disc bulge with endplate spurring, similar compared toprior. Mild right and no left foraminal stenosis. No spinal canalstenosis. Findings are similar compared to prior. L5-S1: Diffuse disc bulge with endplate spurring. Mild left and no rightforaminal stenosis. No spinal canal stenosis. Findings are similarcompared to prior. IMPRESSION: Multilevel degenerative changes throughout the lumbar spine, similarcompared to 08/08/2024. No high-grade foraminal or spinal canalstenosis. -------- FINAL REPORT -------- Dictated By: ABDI DICKSON Dictated Date: 01/10/2025 17:56 ET Assigned Physician: ABDI DICKSON Reviewed and Electronically Signed By: ABDI DICKSON Signed Date: 01/10/2025 18:16 ET Workstation ID: [id number] Transcribed By: Self Edit Transcribed Date: 01/10/2025 17:56 ET Clare Mo MD IMG MRI PROCEDURES Final Result from Last 3 Months Insurance MEDICARE [facility] MEDICARE Member Subscriber Plan / Payer (Ef fective 2025-Present) Name:ANDREA RAMIREZ Relation to Subscriber:Self Name:Andrea Ramirez Payer ID:[id number] Group ID:[id number] Type:Not on file Address: [place] [address] [place] [phone] Advance Directives * Full Code - Default (Latest Code Status on File) Date Activated Date Inactivated Comments 02/01/2025 8:14 AM 02/01/2025 6:13 PM This is orde r is used when code status has not been discussed with the patient, or code status is otherwise unknown/unconfirmed To update the patient's code status, place a code status order. Do not modify or discontinue any currently active code status orders. Care Teams Director Inbound Sales Relationship Specialty Start Date End Date Clare Mo MD [address] [place] [address] PCP - General 01/11/24
--- NOTE | 2025-03-22 00:36 | ED.BACK ---
HPI - Back Pain/Injury General Chief Complaint: Back Pain/Injury Stated Complaint: Back surgery 2023, lot of pain Time Seen by Provider: 03/22/25 00:26 History of Present Illness HPI Narrative: Patient is a 43-year-old female with a history of back surgery about a year ago. At neck surgery back in January. Complaining of pain to her neck pain to her back that is been ongoing. The back pain goes down her left leg. It is not associated with any bowel urinary incontinence. It is not associated any focal weakness. Patient from home. There is no trauma. The pain is the same as prior. Patient is on Celebrex. No fever no chills. No chest pain or shortness breath no diaphoresis no focal weakness. Patient is from home. Related Data Home Medications ?Medication ?Instructions ?Recorded ?Confirmed alprazolam 1 mg tablet 1 mg PO DAILY PRN Anxiety 03/08/23 10/09/24 fluticasone propionate 50 spray intranasal 03/08/23 10/09/24 mcg/actuation nasal spray,suspension cyclobenzaprine 10 mg tablet 20 mg PO TID PRN muscle spasm 04/11/24 10/09/24 gabapentin 800 mg tablet 800 mg PO TID 04/26/24 10/09/24 oxycodone-acetaminophen 10 mg-325 1 tab PO QID PRN Pain 04/26/24 10/09/24 mg tablet magnesium 250 mg tablet 250 mg PO DAILY 10/09/24 10/09/24 multivitamin 1 tab PO DAILY 10/09/24 10/09/24 Previous Rx's ?Medication ?Instructions ?Recorded celecoxib 200 mg capsule (Celebrex) 200 mg PO BID 30 days #60 caps 10/09/24 oxycodone 5 mg tablet 5 mg PO Q8H PRN pain #7 tabs 03/22/25 Allergies Allergy/AdvReac Type Severity Reaction Status Date / Time morphine AdvReac Itching, Verified 03/21/25 22:30 rash Review of Systems Review of Systems: Positive back pain Positive back pain radiating down the left leg No fever no chills Yes all other systems are reviewed and are negative PMFSH Past Medical History Attestation statement: The following information was validated with the patient. Medical History Pinched vertebral nerve Cervical spondylarthritis Spondylolisthesis, cervical region Migraine NEC/not intrcbl Mood disorder Bipolar 1 disorder PTSD (post-traumatic stress disorder) Chronic low back pain without sciatica Panic disorder Neural foraminal stenosis of cervical spine Surgical History Hx of tubal ligation Hx of cholecystectomy S/P appendectomy Social History Social History Household Members: Significant Other Housing: Apartment Alcohol intake: current Alcohol intake frequency: a few times a week Alcohol type: beer Patient Tobacco Use Status: Former Tobacco user Tobacco use type: Cigarette Advance Directives: No Advance Directives Information Provided: Yes Current occupational status: disabled Current occupation: rt handed Sexual orientation: Straight/Heterosexual Gender identity: Female Physical Exam Vital Signs: Vital Signs: Last Vital Signs Temp 98.6 F 03/21/25 22:28 Pulse 85 03/21/25 22:28 Resp 20 03/21/25 22:28 BP 111/64 03/21/25 22:28 Pulse Ox 97 03/21/25 22:28 O2 Del Method Room Air 03/21/25 22:28 BMI result Body Mass Index 30.7 Appearance: Alert. Oriented X3. No acute distress. Eyes: Pupils equal, round and reactive to light. ENT: Pharynx normal. Neck: Normal inspection. Neck supple. No lymph nodes noted. No crepitus CVS: Normal heart rate and rhythm. Pulses normal. Normal S1 and S2 Respiratory: No respiratory distress. Breath sounds normal. No Wheezing. No rales Abdomen: Soft and nontender. No rigidity. No distention. good BS x4 Skin: Skin warm and dry. Normal skin color. Normal skin turgor. Extremities: No lower extremity edema. Neurovascular intact to all extremities. No Lacerations. No Rash Neuro: Oriented X 3. No motor deficit. No sensory deficit. Moving all extermities. No slurred speech. There is good sensation in bilateral lower extremity. Positive straight leg raise test on the left side. Good movement of the toes pulses 2+ at dorsalis pedis posterior tibialis. Good equal arm strength bilaterally. [id number] grossly intact bilaterally. Medical Decision Making Medical Decision Making MDM Narrative: No focal weakness no fever no chills no signs of cauda equinus syndrome no bowel urinary incontinence. Patient's vital signs are normal. X-ray of the lumbar spine was done. There is no acute fracture noted. X-ray of the cervical spine was done. There was no acute fracture or malalignment noted. The pain is chronic in nature. Will discharge patient home. Patient wanted a dose of pain medication here has follow-up with her neurosurgeon on an outpatient basis a neurosurgeon is based out of [facility] Differential Diagnosis Differential Diagnoses: The differential diagnosis associated with the presentation includes Sciatica, fracture Admission/Observation Consideration of admission/observation: Escalation of care including admission/observation considered Lab Data MDM Lab Attestation statement: I reviewed the patient's lab results. Independent Interpretation I performed an independent interpretation of an: Plain X-Ray (No acute fracture noted) Radiology Impression Discussion of test interpretation with radiology: I have reviewed the radiologist's reading. External Record Review External record reviewed: Office record Previous pain management note reviewed Chronic Conditions Chronic pain Social Determinants Patient?s care significantly limited by Social Determinants of Health including: Problems related to primary support group Discharge Plan Discharge Clinical Impression: Back pain, Cervical disc disorder with radiculopathy Patient Disposition: Home, Self-Care Instructions: Chronic Back Pain (DC), Chronic Neck Pain (DC) Prescriptions: New oxycodone 5 mg tablet 5 mg PO Q8H PRN (Reason: pain) Qty: 7 0RF Rx Instructions: Partial Fill upon patient request. No Action cyclobenzaprine 10 mg tablet 20 mg PO TID PRN (Reason: muscle spasm) magnesium 250 mg tablet 250 mg PO DAILY multivitamin Tablet 1 tab PO DAILY celecoxib [Celebrex] 200 mg capsule 200 mg PO BID 30 Days Qty: 60 3RF alprazolam 1 mg tablet 1 mg PO DAILY PRN (Reason: Anxiety) fluticasone propionate 50 mcg/actuation spray,suspension intranasal oxycodone-acetaminophen 10-325 mg tablet 1 tab PO QID PRN (Reason: Pain) gabapentin 800 mg tablet 800 mg PO TID Referrals: Clare Mo MD [Primary Care Provider, Medical] Referral Note: Please also follow-up with your neurosurgeon Print Language: Bruneian
[2025-03-22 00:39] VITALS: RESP 20
[2025-03-22 00:53] VITALS: BP 113/53; PULSE 62; RESP 16; TEMP 36.6; O2SAT 96
== END 2025-03-22 00:54 | disposition home or self-care (01) ==
PROVIDERS: Emergency Provider Emergency Medicine Emergency Medical Services; PCP Internal Medicine
DX: M54.12 Radiculopathy, cervical region (principal); M54.50 Low back pain, unspecified; M79.605 Pain in left leg; Z79.899 Other long term (current) drug therapy; Z87.891 Personal history of nicotine dependence
CPT/HCPCS: 72040; 72100; 96372; 99283; 99284; J1171; J1885

== ENCOUNTER → 2025-03-21 22:50 | Outpatient (BNV) | payer OTHER, SELFPAY | PROVIDERS: Emergency Provider Emergency Medicine Emergency Medical Services; PCP Internal Medicine; Visit Provider Radiology Diagnostic Radiology | DX: M54.2 Cervicalgia (principal); M54.50 Low back pain, unspecified | CPT/HCPCS: 72040; 72100 ==

== ENCOUNTER 2025-04-10 11:37 | Outpatient (REF) | payer OTHER, SELFPAY ==
--- OUTSIDE RECORDS SUMMARY | 2025-04-10 12:45 | XMS_ITS | Clinical Summary ---
Author Organization [facility] Address [address] [place] [address] Phone Care Team Providers Care Pointer Machine Operator Name Role Phone Clrae Mo MD Primary Care Provider [phone] Allergies No known active allergies Medications ALPRAZolam (XANAX) 1 mg tablet Take 1 tablet (1 mg total) by mouth 1 (one) time each day if needed. for anxiety 07/20/20 24 Active oxyCODONE-acet aminophen (PERCOCET) 10-325 mg per tablet Take 1 tablet by mouth every 6 (six) hours if needed for severe pain. 07/14/20 24 Active cholecalcifero l (VITAMIN D-3) 25 mcg (1,000 unit) tablet Take 1 tablet (1,000 Units total) by mouth 1 (one) time each day. Active magnesium 250 mg tablet Take by mouth. Activ e pregabalin (LYRICA) 200 mg capsule Take 1 capsule (200 mg total) by mouth 2 times daily. 12/19/19 25 026 Active B complex-vitami n C-vitamin E-zinc tablet Take 1 tablet by mouth 1 (one) time each day. Active Alcohol Prep Pads pads, medicated 1 (one) time each day. 02/27/20 25 Active Omron BP Monitor-3 Series kit Check blood pressure on arm as directed EVERY DAY 02/27/20 25 Active blood sugar diagnostic (FreeStyle Lite Strips) test strip 1 (one) time each day. TEST BLOOD SUGAR 02/27/20 25 Active FreeStyle Clayton Lite monitoring kit by extracorporeal route 1 (one) time each day. 02/27/20 25 Active Easy Touch Twist Lancets 33 gauge misc 1 Lancet by extracorporeal route 1 (one) time each day. 02/27/20 25 Active neomycin-polym yxin-hydrocort isone (CORTISPORIN) 3.5-10,000-1 mg/mL-unit/mL- % otic suspension PLACE 3 to 4 DROPS IN AFFECTED EAR(S) FOUR TIMES DAILY FOR 10 DAYS 02/28/20 25 Active dexAMETHasone (DECADRON) 2 mg tabletIndicati ons:Oropharyng eal dysphagia Take 1 tablet (2 mg total) by mouth every 8 (eight) hours for 5 days. 15 each 04/06/20 25 025 Active cyclobenzaprin e (FLEXERIL) 10 mg tablet Take 1 Tablet by mouth 3 times daily as needed. 025 Discontin ued(Thera py completed ) tiZANidine (ZANAFLEX) 4 mg tablet Take 1 tablet (4 mg total) by mouth every 6 hours as needed. 12/12/19 25 025 Discontin ued(Thera py completed ) Active Problems Problem Noted Date Diagnosed Date Radiculopathy, cervical region 01/15/2025 Left hip pain 09/19/2024 Assessment & Plan (09/20/2024 10:06 AM EST): Ms. Macedo describes significant pain at the left hip. She had pain with hip mechanical testing on the left hand side. She was tender at the greater trochanter. She had x-rays of the hip performed at [facility] on 08/01/24. They revealed calcific tendinitis [...] arms overhead, she had to ask the rehabilitation technician to help her move her arms [...] to her next appointment. Assessment & Plan (04/06/2025 11:52 AM EDT): Ms. Sorin joyner has not made the kind of progress she anticipated and states that the posterior cervical neck pain still present every day and has flared up her migraines. Between that, the dysphagia, irritated eyes and frequent falls, she is quite miserable. We spent some time differentiating which of these symptoms may be a result of surgery and what we can do about them versus what was unrelated. Posterior cervical pain or spasm is quite typical as the body adjusts to the new disc height and hardware. She states the muscle relaxers and lidocaine patches were not helping and she stopped using them. Ice and Salonpas do help and she does that regularly. I suggested she continue with those and to start physical therapy where they may try ultrasound, massage and help improve her mobility. She has agreed and a referral slip was provided. As for the dysphagia, there is a little residual retropharyngeal swelling on her x-rays from [place]. I am putting her on low-dose Decadron for 5 days which I believe should settle that down. Her itchy watery eyes are not a feature postoperatively from the surgery. Neither is her falling which seems to occur when she is overwhelmed. She continues to use her rollator and should be mindful in the shower. I will plan to see her back at 6 months from surgery with another set of x-rays as there were no dynamic views performed when she went to [facility]. Assessment & Plan (02/14/2025 9:41 PM EDT): [...] no negative side effects like lethargy. Ms. Macedo is doing well postop in terms of [...] Dr. Suggs when she is back from [place] (March 23). I asked her to call [...] she do this before her trip to [place] in March as she will be well [...] spine from January of this year at [facility] veal degenerative changes most significant [...] told her she likely has fibromyalgia. Saw chief service observer, was started on vitamin D, magnesium, vitamin [...] looking forward to starting treatment to [facility] hopefully this will provide her some relief. [...] lumbar cortisone injections back in 2020 at [facility]. She has been walking with a walker. Ms. Macedo describes left low back, buttock, hip and foot pain. She is having to walk with a walker, feels her balance is poor. We can check updated lumbar spine MRI with and without contrast to rule out recurrent disc herniation/nerve root compression. She would also like to be referred back to [facility] to see if they would offer left SI joint injection, she has tenderness over the SI joint, pain in the SI joint region with external hip rotation. She will go for the hip x-rays (already ordered by PCP) this coming week. We will follow-up with her after imaging is complete. Encounters Date Type Department Care Team Description 04/06/2025 11:15 AM EDT Office Visit [address] [phone] Keli Suggs MD Cervical spondylosis (Primary Dx); Oropharyngeal dysphagia 02/19/[address] [phone] Keli Suggs MD 02/13/2025 2:30 PM EDT Office Visit [address] [phone] Georgia Huynh PA Cervical spondylosis (Primary Dx); Chronic pain of both shoulders 02/13/2025 Telephone Neurosurgery [address] [phone] Kassy Maria Esther [place] 02/01/2025 10:49 AM EDT Anesthesia Event [facility] Main OR [address] [place] [phone] Satinder Luna MD 02/01/2025 9:30 AM EDT - 02/01/2025 12:00 PM EDT Surgery [facility] Main OR [address] [place] [address] Keli Suggs MD C4-5 C5-6 anterior cervical discectomy & fusion [51308 (CPT ) +3 more] 02/01/2025 7:55 AM EDT - 02/01/2025 4:08 PM EDT Hospital Encounter [facility] Main OR [address] [place] [phone] Keli Suggs MD Discharge Disposition: Home or Self Care 02/01/2025 7:05 AM EDT - 02/01/2025 11:59 PM EDT Hospital Encounter [facility] Xray [address] [place] [address] Pain Discharge Disposition: Home or Self Care 01/12/2025 1:00 PM EDT Office Visit Neurosurgery [facility] [address] [facility] [address] [place] [phone] Keli Suggs MD Cervical spondylosis (Primary Dx); Lumbar disc herniation with radiculopathy 01/10/2025 3:12 PM EDT - 01/10/2025 11:59 PM EDT Hospital Encounter [facility] MRI [address] [place] [phone] Spinal stenosis, cervical region Discharge Disposition: Home or Self Care 01/10/2025 3:12 PM EDT - 01/10/2025 11:59 PM EDT Hospital Encounter [facility] MRI [address] [place] [address] Spinal stenosis Discharge Disposition: Home or Self Care from Last 3 Months Immunizations Name Administration [...] - - Weight 85.7 kg (189 lb) 04/06/2025 10:56 AM EDT Height 165.1 cm (5' 5 ) 04/06/2025 10:56 AM EDT Body Mass Index 31.45 04/06/2025 10:56 AM EDT Plan of Treatment Health Maintenance Due Date Last Done Comments Breast Cancer Screening 1980 Colorectal Cancer Screening: Colonoscopy 08/16/2022 Medicare Annual Wellness Visit 08/16/2022 Social Influencers of Health Screening 08/16/2022 COVID-19 Vaccine ( season) 2024 08/27/2023, 02/26/2023, 02/26/2023, Additional history exists Depression Screening 09/13/2024 Hepatitis B Vaccines (2 of 3 - 19+ 3-dose series) 03/26/2025 02/26/2025 Influenza Vaccine (#1) 2025 , 07/02/2022, 06/17/2021, Additional history exists Cervical Cancer Screening: Pap Smear 03/08/2026 03/08/2023 DTaP,Tdap,and Td Vaccines (3 - Td or Tdap) 06/27/2029 06/27/2019, 06/22/2018 Cholesterol Screening (Lipid Panel) 02/28/2030 02/28/2025, 07/04/2021 HIV Screening Completed 02/28/2025 Hepatitis C Screening Completed 02/28/2025 HIB Vaccines Aged Out No longer eligi [...] this topic Medical Devices Implanted Type Area Nurse Wound Care Device Identifier Shelf Expiration Date Model / Serial / Lot L-Asr Tay Canc [id number] Fd Fee - [id number] - [id number] Implanted:Qty : 1 on 02/01/2025 by Keli Suggs MD at [facility] [employer] Bone N/A: Spine Cervical [employer] 01/27/2026 [id number] / [id number] / [id number] L-Asr Tay Canc [id number] Fd Fee - [id number] - [id number] Implanted:Qty : 1 on 02/01/2025 by Keli Suggs MD at [facility] [employer] Bone N/A: Spine Cervical [employer] 04/22/2026 [id number] / [id number] / [id number] Powder Surgifoam Absorb Gel - Sna - [id number] Implanted:Qty : 1 on 02/01/2025 by Keli Suggs MD at [facility] [employer] N/A: Spine Cervical [employer] 10/26/[id number] / NA / [id number] Plate Spin Cerv Ant Zevo 35mm - Sna - [id number] Implanted:Qty : 1 on 02/01/2025 by Keli Suggs MD at [facility] Spinal Hardware N/A: Spine Cervical [employer] SOFAMOR DANEK [id number] / NA / NA Screw Cerv [address] 13x3.5mm - Sna - [id number] Implanted:Qty : 6 on 02/01/2025 by Keli Suggs MD at [facility] Spinal Hardware N/A: Spine Cervical [employer] SO[employer] D[employer]K [id number] / NA / NA Procedures Procedure Name Priority Date/Time Associated Diagnosis Comments OXYGEN THERAPY, ADULT Routine 02/01/2025 1:23 PM EDT OXYGEN THERAPY, ADULT Routine 02/01/2025 1:23 PM EDT XR SPINE 1 VIEW Routine 02/01/2025 12:59 PM EDT Pain TH AN ENDOTRACHEAL(NO CHARGE) Routine 02/01/2025 11:35 AM EDT [place] ALLOGRAFT STRUCTURAL SPINE SURGERY ONLY 02/01/2025 10:48 AM EDT Radiculopathy, cervical region Case Notes C-ARM, MIDAS, [employer] ZEVO, CORNERSTONE [place] INSTRUMENTATION ANTERIOR 2-3 VERTEBRAL SEGMENTS 02/01/2025 10:48 AM EDT Radiculopathy, cervical region Case Notes C-ARM, MIDAS, [employer] ZEVO, CORNERSTONE [place] ARTHRDS ANTERIOR I-B CERVICAL BELOW C2 EACH ADDITIONAL INTERSPACE 02/01/2025 10:48 AM EDT Radiculopathy, cervical region Case Notes C-ARM, MIDAS, [employer] ZEVO, CORNERSTONE [place] ARTHRDS ANT I-B DISCECTOMY DECMPR SPINAL CORD/NERVE [...] Dictated Date: 02/03/2025 14:46 ET Assigned Physician: Edtih Rangel Reviewed and Electronically Signed By: Edith Rangel Signed Date: 02/03/2025 14:47 ET Workstation ID: [id number] Transcribed By: Self Edit Transcribed Date: 02/03/2025 [...] Signed Date: 02/03/2025 14:47 ET Workstation ID: [id number] Transcribed By: Self Edit Transcribed Date: 02/03/2025 14:46 ET us Keli Suggs MD IMG XR PROCEDURES Final Result * TH AN ENDOTRACHEAL(NO CHARGE) (02/01/2025 11:35 AM EDT) Sandra Aparicio CRNA - 02/01/2025 11:35 AM EDT Sandra Estrada CRNA 02/01/2025 11:41 AM General Information and Staff Patient location during procedure: OR Anesthesiologist: Satinder Luna MD Resident/FINAL RAIL CUTTER: Sandra Estrada CRNA Other anesthesia staff: MAGDALENA [...] -------- FINAL REPORT -------- Dictated By: ABDI HUA Dictated Date: 01/10/2025 18:16 ET Assigned Physician: ABDI HUA Reviewed and Electronically Signed By: ABDI HUA Signed Date: 01/10/2025 18:25 ET Workstation ID: [id number] Transcribed By: Self Edit Transcribed Date: 01/10/2025 [...] No spinal canal stenosis. Procedure Note Abdi Hua MD - 01/10/2025 PROCEDURE: Cervical spine MRI [...] -------- FINAL REPORT -------- Dictated By: ABDI HUA Dictated Date: 01/10/2025 18:16 ET Assigned Physician: ABDI HUA Reviewed and Electronically Signed By: ABDI HUA Signed Date: 01/10/2025 18:25 ET Workstation ID: [id number] Transcribed By: Self Edit Transcribed Date: 01/10/2025 18:16 ET Clare Mo MD IMG MRI PROCEDURES Final Result * MR Lumbar Spine wo Contrast (01/10/2025 4:50 PM EDT) Anatomical Region Laterality Modality L-spine, Spine Magnetic Resonan ce 01/10/2025 5:56 PM EDT Impressions 01/10/2025 6:16 PM EDT Multilevel degenerative changes throughout the lumbar spine, similar compared to 08/08/2024. No high-grade foraminal or spinal canal stenosis. -------- FINAL REPORT -------- Dictated By: ABDI HUA Dictated Date: 01/10/2025 17:56 ET Assigned Physician: ABDI HUA Reviewed and Electronically Signed By: ABDI HUA Signed Date: 01/10/2025 18:16 ET Workstation ID: [id number] Transcribed By: Self Edit Transcribed Date: 01/10/2025 [...] similar compared to prior. Procedure Note Abdi Hua MD - 01/10/2025 PROCEDURE: Lumbar spine MRI [...] -------- FINAL REPORT -------- Dictated By: ABDI HUA Dictated Date: 01/10/2025 17:56 ET Assigned Physician: ABDI HUA Reviewed and Electronically Signed By: ABDI HUA Signed Date: 01/10/2025 18:16 ET Workstation ID: [id number] Transcribed By: Self Edit Transcribed Date: 01/10/2025 17:56 ET Clare Mo MD IMG MRI PROCEDURES Final Result from Last 3 Months Insurance MEDICARE [facility] MEDICARE Member Subscriber Plan / Payer (Ef fective 2025-Present) Name:ANDREA MACEDO Relation to Subscriber:Self Name:Andrea Macedo Payer ID:[id number] Group ID:[id number] Type:Not on file Address: [address] [phone] Advance Directives * Full Code - Default [...] currently active code status orders. Care Teams Pointer Machine Operator Relationship Specialty Start Date End Date Clare Mo MD [address] [place] [address] PCP - General 01/11/24
--- OUTSIDE RECORDS SUMMARY | 2025-04-10 12:45 | XMS_ITS | Encounter Summary ---
Author Organization [employer] Address [address] [facility] 7 [place] [address] Care Team Providers Care Ginning Operator Name Role Phone Clare Mo MD Primary Care Provider +1- [phone] Encounter Details Date Type Department Care Team ([facility] Contact Info) Description 09/29/2024 Orders Only [facility] CHC MED & PEDS [address] [place], [place] [phone] Clare Mo MD [address] [place] [address] Social History Tobacco Use Types Packs/Day Years [...] Description 04/13/2025 9:00 AM EDT Office Visit [facility] OPTOMETRY [address] [place] [address] AndrewSita, OD [address] [place] [address] 04/17/2025 1:30 PM EDT Clinical Support [facility] MED & PEDS [address] [place] [address] 05/01/2025 11:00 AM EDT Clinical Support [facility] MED & PEDS [address] [place] [address] Evelina Pimentel, WILBER [address] [place] [address] documented as of this encounter Visit Diagnoses Not on filedocumented in this encounter Care Teams Ginning Operator Relationship Specialty Start Date End Date Clare Mo MD [address] [place] [address] PCP - General Internal Medicine 03/17/17 documented as of this encounter
[2025-04-10 14:31] LABS: Alanine Aminotransferase 28 U/L (0-31); Albumin Level 4.7 g/dL (3.5-5.0); Alkaline Phosphatase 69 U/L (39-117); Anion Gap 13 (12-20); Aspartate Amino Transferase 24 U/L (5-31); Blood Urea Nitrogen 14 mg/dL (9-16); Calcium 9.4 mg/dL (8.4-10.2); Carbon Dioxide 26 mmol/L (22-29); Chloride 106 mmol/L (96-108); Estimated Glomerular Filt Rate > 60; Potassium 3.7 mmol/L (3.3-5.1); Sodium 141 mmol/L (135-145); Total Protein 7.6 g/dL (6.5-8.0)
== END 2025-04-10 11:38 | disposition home or self-care (01) ==
LOC: HO.CHCLDS 11:37
PROVIDERS: Visit Provider Internal Medicine
DX: E77.8 Other disorders of glycoprotein metabolism (principal); R74.01 Elevation of levels of liver transaminase levels
CPT/HCPCS: 36415; 80053

== ENCOUNTER 2025-04-30 13:35 | Outpatient (REF) | payer OTHER, SELFPAY ==
--- NOTE | ~2025-04-30 | MM_ITS ---
EXAMINATION: MM SCREENING DIGITAL BREAST TOMOSYNTHESIS, BILATERAL CLINICAL INFORMATION: Screening. Asymptomatic. COMPARISON: Mammography: Comparison is made with available priors TECHNIQUE: Digital breast mammography with tomosynthesis is performed in both the craniocaudal and mediolateral oblique views along with computer-aided detection (CAD). FINDINGS: The breasts are heterogeneously dense, which may obscure small masses (ACR BI-RADS breast composition Category c). There are no significant masses, abnormal calcifications, or other abnormalities. MM/MM tomosynthesis screening BI IMPRESSION: No mammographic evidence of malignancy. ASSESSMENT: BI-RADS BI-RADS 1 - Negative RECOMMENDATION: Routine annual mammography screening. 1 year F/U This examination should not preclude the clinical evaluation of a suspicious palpable abnormality. This patient's information was entered into a reminder system with a target due date for their next mammogram. Electronically signed by: Beatrice Rogers DO 05/02/2025 09:18 AM EDT
--- OUTSIDE RECORDS SUMMARY | 2025-04-30 14:28 | XMS_ITS | Clinical Summary ---
Author Organization [address] [facility] Address [address] [place] [address] Phone Care Team Providers Care Forming Process Line Worker Name Role Phone Clare Mo MD Primary Care Provider +1 -[phone] Allergies No known active allergies Medications ALPRAZolam [...] TEST BLOOD SUGAR 02/27/20 25 Active FreeStyle Mesa Lite monitoring kit by extracorporeal route 1 [...] for 5 days. 15 each 04/06/20 25 Active cyclobenzaprin e (FLEXERIL) 10 mg tablet Take 1 Tablet by mouth 3 times daily as needed. Discontin ued(Thera py completed ) tiZANidine (ZANAFLEX) [...] had x-rays of the hip performed at [facility] on 08/01/24. They revealed calcific tendinitis [...] arms overhead, she had to ask the wind turbine blade repair technician to help her move her arms [...] residual retropharyngeal swelling on her x-rays from [facility]. I am putting her on low-dose Decadron [...] dynamic views performed when she went to [facility]. Assessment & Plan (02/14/2025 9:41 PM [...] Dr. Suggs when she is back from [place] (March 23-). I asked her to call if she [...] she do this before her trip to [place] in March as she will be well [...] spine from January of this year at [facility] veal degenerative changes most significant [...] told her she likely has fibromyalgia. Saw staff rn, was started on vitamin D, magnesium, vitamin [...] looking forward to starting treatment to [facility] hopefully this will provide her some relief. [...] lumbar cortisone injections back in 2020 at [facility]. She has been walking with a walker. Ms. Macedo describes left low back, buttock, hip and foot pain. She is having to walk with a walker, feels her balance is poor. We can check updated lumbar spine MRI with and without contrast to rule out recurrent disc herniation/nerve root compression. She would also like to be referred back to [facility] to see if they would offer left SI joint injection, she has tenderness over the SI joint, pain in the SI joint region with external hip rotation. She will go for the hip x-rays (already ordered by PCP) this coming week. We will follow-up with her after imaging is complete. Encounters Date Type Department Care Team Description 04/06/2025 11:15 AM EDT Office Visit [address] [phone] Keli Suggs MD Cervical spondylosis (Primary Dx); Oropharyngeal dysphagia 02/19/[address] [phone] Keli Suggs MD 02/13/2025 2:30 PM EDT Office Visit [address] [phone] [place] Huynh PA Cervical spondylosis (Primary Dx); Chronic pain of both shoulders 02/13/2025 Telephone Neurosurgery [address] [phone] Maria Esther [place], [place] 02/01/2025 10:49 AM EDT Anesthesia Event [facility] Main OR [address] [place] [address] Satinder Luna MD 02/01/2025 9:30 AM EDT - 02/01/2025 12:00 PM EDT Surgery [facility] Main OR [address] [place] [address] Keli Suggs MD C4-5 C5-6 anterior cervical discectomy & fusion [39601 (CPT ) +3 more] 02/01/2025 7:55 AM EDT - 02/01/2025 4:08 PM EDT Hospital Encounter [facility] Main OR [address] [place] [phone] Keli Suggs MD Discharge Disposition: Home or Self Care 02/01/2025 7:05 AM EDT - 02/01/2025 11:59 PM EDT Hospital Encounter [facility] Xray [address] [place] [address] Pain Discharge Disposition: Home or Self Care from [...] subsequent reversal in 2018, ectopic in 2019 NECK SURGERY 08/04/2021 s/p [...] this topic Medical Devices Implanted Type Area Apparel Sales Associate Device Identifier Shelf Expiration Date Model / Serial / Lot L-Asr Tay Canc [id number] Fd Fee - [id number] - [id number] Implanted:Qty : 1 on 02/01/2025 by Keli Suggs MD at [facility] [employer] Bone N/A: Spine Cervical [employer] 01/27/2026 [id number] / [id number] / [id number] L-Asr Tay Canc [id number] Fd Fee - [id number] - [id number] Implanted:Qty : 1 on 02/01/2025 by Keli Suggs MD at [facility] [employer] Bone N/A: Spine Cervical [employer] 04/22/2026 [id number] / [id number] / [id number] Powder Surgifoam Absorb Gel - Sna - [id number] Implanted:Qty : 1 on 02/01/2025 by Keli Suggs MD at [facility] [employer] N/A: Spine Cervical [employer] 10/26/[id number] / NA / [id number] Plate Spin Cerv Ant Zevo 35mm - Sna - [id number] Implanted:Qty : 1 on 02/01/2025 by Keli Suggs MD at [facility] Spinal Hardware N/A: Spine Cervical [employer] SOFAMOR DANEK [id number] / NA / NA Screw Cerv [address] 13x3.5mm - Sna - [id number] Implanted:Qty : 6 on 02/01/2025 by Keli Suggs MD at [facility] Spinal Hardware N/A: Spine Cervical [employer] SO[employer]AM[employer]ANE[employer] [id number] / NA / NA Procedures Procedure Name Priority Date/Time Associated Diagnosis Comments OXYGEN THERAPY, ADULT Routine 02/01/2025 1:23 PM EDT OXYGEN THERAPY, ADULT Routine 02/01/2025 1:23 PM EDT XR SPINE 1 VIEW Routine 02/01/2025 12:59 PM EDT Pain TH AN ENDOTRACHEAL(NO CHARGE) Routine 02/01/2025 11:35 AM EDT CO ALLOGRAFT STRUCTURAL SPINE SURGERY ONLY 02/01/2025 10:48 AM EDT Radiculopathy, cervical region Case Notes C-ARM, MIDAS, [employer] ZEVO, CORNERSTONE CO INSTRUMENTATION ANTERIOR 2-3 VERTEBRAL SEGMENTS 02/01/2025 10:48 AM EDT Radiculopathy, cervical region Case Notes C-ARM, MIDAS, [employer] ZEVO, CORNERSTONE CO ARTHRDS ANTERIOR I-B CERVICAL BELOW C2 EACH ADDITIONAL INTERSPACE 02/01/2025 10:48 AM EDT Radiculopathy, cervical region Case Notes C-ARM, MIDAS, [employer] ZEVO, CORNERSTONE CO ARTHRDS ANT I-B DISCECTOMY DECMPR SPINAL CORD/NERVE ROOTS CERV BELOW C2 02/01/2025 10:48 AM EDT Radiculopathy, cervical region Case Notes C-ARM, MIDAS, [employer] ZEVO, CORNERSTONE from Last 3 Months Results * XR [...] Signed Date: 02/03/2025 14:47 ET Workstation ID: [id number] Transcribed By: Self Edit Transcribed Date: 02/03/2025 [...] Signed Date: 02/03/2025 14:47 ET Workstation ID: [id number] Transcribed By: Self Edit Transcribed Date: 02/03/2025 14:46 ET us Keli Suggs MD IMG XR PROCEDURES Final Result * TH AN ENDOTRACHEAL(NO CHARGE) (02/01/2025 11:35 AM EDT) Sandra Aparicio CRNA - 02/01/2025 11:35 AM EDT Sandra Estrada CRNA 02/01/2025 11:41 AM General Information and Staff Patient location during procedure: OR Anesthesiologist: Satinder Luna MD Resident/CONCERT SINGER: Sandra Estrada CRNA Other anesthesia staff: MAGDALENA [...] Luna MD ANESTHESIA ORDERABLES Final Re sult from Last 3 Months Insurance MEDICARE [facility] MEDICARE Member Subscriber Plan / Payer (Ef fective 2025-Present) Name:ANDREA MACEDO Relation to Subscriber:Self Name:Andrea Macedo Payer ID:[id number] Group ID:[id number] Type:Not on file Address: [address] [place] [address] Advance Directives * Full Code - Default [...] currently active code status orders. Care Teams Forming Process Line Worker Relationship Specialty Start Date End Date Clare Mo MD [address] [place] [address] PCP - General 01/11/24
--- OUTSIDE RECORDS SUMMARY | 2025-04-30 14:28 | XMS_ITS | Encounter Summary ---
Author Organization [employer] Address [address] [facility] 7 [place] [address] Care Team Providers Care Salt Miner Name Role Phone Clare Mo MD Primary Care Provider +1- [phone] Encounter Details Date Type Department Care Team ([facility] Contact Info) Description 09/29/2024 Orders Only [facility] CHC MED & PEDS [address] [place], [place] [phone] Clare Mo MD [address] [place] [address] Social History Tobacco Use Types Packs/Day Years [...] Care Team (Late st Contact Info) Description 05/01/2025 11:00 AM EDT Clinical Support [facility] MED & PEDS [address] [place] [address] Evelina Pimentel, WILBER [address] [place] [address] documented as of this encounter Visit Diagnoses Not on filedocumented in this encounter Care Teams Salt Miner Relationship Specialty Start Date End Date Clare Mo MD [address] [place] [address] PCP - General Internal Medicine 03/17/17 documented as of this encounter
== END 2025-04-30 13:36 | disposition home or self-care (01) ==
LOC: HO.MAMMO 13:35
PROVIDERS: PCP Internal Medicine; Visit Provider Internal Medicine
DX: Z12.31 Encounter for screening mammogram for malignant neoplasm of breast (principal)
CPT/HCPCS: 77063; 77067

== ENCOUNTER → 2025-04-30 14:00 | Outpatient (BNV) | payer OTHER, SELFPAY | PROVIDERS: PCP Internal Medicine; Visit Provider Internal Medicine | DX: Z12.31 Encounter for screening mammogram for malignant neoplasm of breast (principal) | CPT/HCPCS: 77063; 77067 ==

== ENCOUNTER 2025-08-21 04:03 | Emergency (ER) | payer OTHER, SELFPAY ==
[2025-08-21 04:07] VITALS: BP 131/84; PULSE 70; RESP 20; TEMP 36.7; O2SAT 98; BMI 28.7
[2025-08-21 04:17] VITALS: BP 131/84; PULSE 70; RESP 20; TEMP 36.7; O2SAT 98
--- OUTSIDE RECORDS SUMMARY | 2025-08-21 04:44 | XMS_ITS | Encounter Summary ---
Author Organization [employer] Address [address] [place] [address] Care Team Providers Care Refractory Mixer Name Role Phone Clare Mo MD Primary Care Provider +1- [phone] Reason for Referral * Consultation (Urgent) - Closed Specialty Diagnoses / Procedures Referred By Contac t Referred To Contact Neurosurgery Diagnoses Lumbar nerve root impingement Clare Mo MD [address] [place] [address] Phone: tel: fax: Keli Suggs [address] [place] [address], [address] [place], [place] Phone: tel: fax: Referral ID Status Reason Start Date Expiration Date V isits Requested Visits Authorized [id number] Closed Specialty Services Required 01/11/2024 01/10/2025 1 1 Encounter Details Date Type Department Care Team (Late st Contact Info) Description 01/11/[address] [facility] CHC MED & PEDS [address] [place], [place] [phone] Clare Mo MD [address] [place] [address] Lumbar nerve root impingement (Primary Dx); Chronic [...] Upcoming Encounters Date Type Department Care Team ([facility] st Contact Info) Description 10/08/2025 10:30 AM EST Telemedicine [facility] CHC MED & PEDS [address] [place] [address] Evelina Pimentel, WILBER [address] [place] [address] Scheduled Referrals Name Type Priority Associated Diagnoses [...] unspecified documented in this encounter Care Teams Refractory Mixer Relationship Specialty Start Date End Date Clare Mo MD [address] [place] [address] PCP - General Internal Medicine 03/17/17 documented as of this encounter
--- OUTSIDE RECORDS SUMMARY | 2025-08-21 04:44 | XMS_ITS | Encounter Summary ---
Author Organization [employer] Address [address] [facility] [address], [place] [address] Care Team Providers Care Java Tech Lead Name Role Phone Clare Mo MD Primary Care Provider +1- [phone] Reason for Visit * Reason Onset Date Comments Call Back Request 01/06/2024 Encounter Details Date Type Department Care Team ([facility] Contact Info) Description 01/06/2024 Telephone [facility] CHC MED & PEDS [address] [place] [address] Clare Mo MD [address] [place] [address] Call Back Request Social History Tobacco Use [...] Upcoming Encounters Date Type Department Care Team ([facility] st Contact Info) Description 10/08/2025 10:30 AM EST Telemedicine [facility] CHC MED & PEDS [address] [place] [address] Evelina Pimentel, WILBER [address] [place] [address] documented as of this encounter Visit Diagnoses Not on filedocumented in this encounter Care Teams Java Tech Lead Relationship Specialty Start Date End Date Clare Mo MD [address] [place] [address] PCP - General Internal Medicine 03/17/17 documented as of this encounter
--- OUTSIDE RECORDS SUMMARY | 2025-08-21 04:44 | XMS_ITS | Encounter Summary ---
Author Organization [employer] Address [address] [place] [address] Care Team Providers Care Material Expediter Name Role Phone Clare Mo MD Primary Care Provider +1- [phone] Encounter Details Date Type Department Care Team ([facility] Contact Info) Description 04/20/2023 Orders Only [facility] MED & PEDS [address] [place] [address] Clare Mo MD [address] [place] [address] Pain in both hands (Primary Dx); Chronic [...] Upcoming Encounters Date Type Department Care Team ([facility] Contact Info) Description 10/08/2025 10:30 AM EST Telemedicine [facility] MED & PEDS [address] [place] [address] Evelina Pimentel RN [address] [place], [place] [phone] documented as of this encounter Visit Diagnoses Diagnosis Pain in both hands- Primary Chronic low back pain, unspecified back pain laterality, unspecified whether sciatica present documented in this encounter Care Teams Material Expediter Relationship Specialty Start Date End Date Clare Mo MD [address] [place] [address] PCP - General Internal Medicine 03/17/17 documented as of this encounter
--- OUTSIDE RECORDS SUMMARY | 2025-08-21 04:44 | XMS_ITS | Encounter Summary ---
Author Organization [employer] Address [address] [facility] 7 [place] [address] Care Team Providers Care Sandblast Operator Name Role Phone Clare Mo MD Primary Care Provider +1- [phone] Encounter Details Date Type Department Care Team ([facility] Contact Info) Description 01/24/2025 Orders Only [facility] CHC MED & PEDS [address] [place], [place] [phone] Clare Mo MD [address] [place] [address] Neck pain Social History Tobacco Use Types Packs/Day Years [...] Care Team (Late st Contact Info) Description 10/08/2025 10:30 AM EST Telemedicine [facility] MED & PEDS [address] [place] [address] Evelina Pimentel RN [address] [place] [address] documented as of this encounter Visit Diagnoses Diagnosis Neck pain Cervicalgia documented in this encounter Care Teams Sandblast Operator Relationship Specialty Start Date End Date Clare Mo MD [address] [place] [address] PCP - General Internal Medicine 03/17/17 documented as of this encounter
--- OUTSIDE RECORDS SUMMARY | 2025-08-21 04:44 | XMS_ITS | Encounter Summary ---
Author Organization [employer] Address [address] [facility] [address], [place] [address] Care Team Providers Care Client Server Developer Name Role Phone Clare Mo MD Primary Care Provider +1- [phone] Reason for Visit * Reason Onset Date Comments Nurse Triage 01/03/2025 Encounter Details Date Type Department Care Team ([facility] Contact Info) Description 01/03/2025 Telephone [facility] MEDICINE [address] [place] [address] Clare Mo MD [address] [place], [place] [phone] Nurse Triage Social History Tobacco Use Types [...] encounter Miscellaneous Notes * Telephone Encounter - Dayan Davis - 01/03/2025 8:41 AM EDT Symptom: Neck Pain - Not From Injury Outcome: Schedule an appointment to be seen within 24 hours Reason: Caller denied all higher acuity questions The caller accepted this outcome. documented in this encounter Plan of Treatment Upcoming Encounters Date Type Department Care Team (Late st Contact Info) Description 10/08/2025 10:30 AM EST Telemedicine [facility] CHC MED & PEDS [address] [place] [address] Evelina Pimentel, WILBER [address] [place] [address] documented as of this encounter Visit Diagnoses Not on filedocumented in this encounter Care Teams Client Server Developer Relationship Specialty Start Date End Date Clare Mo MD [address] [place] [address] PCP - General Internal Medicine 03/17/17 documented as of this encounter
--- OUTSIDE RECORDS SUMMARY | 2025-08-21 04:44 | XMS_ITS | Encounter Summary ---
Author Organization [employer] Address [address] [address] Care Team Providers Care Musical Engineer Name Role Phone Clare Mo MD Primary Care Provider +1- [phone] Reason for Visit * Reason Onset Date Comments Medication Question 03/15/2025 Encounter Details Date Type Department Care Team ([facility] Contact Info) Description 03/15/[address] [facility] CHC MED & PEDS [address] [place] [address] Clare Mo MD [address] [place] [address] Medication Question Social History Tobacco Use Types [...] Telephone Encounter - Evelina Pimentel RN - 03/15/2025 3:18 PM EDT TC back to pt to clarify, pt stated she needs refills by 03/22/25. Also asked for refill of Alprazolam and Lyrica. * Telephone Encounter - Rosangela Moses - 03/15/2025 2:01 PM EDT Tc from pt requesting a early refill for oxyCODONE-acetaminophen (Percocet) 10- 325 MG tablet , states she will be on vacation as of 03/23 and will not be back 04/28 Contact pt at [phone] documented in this encounter Plan of Treatment Upcoming Encounters Date Type Department Care Team (Late st Contact Info) Description 10/08/2025 10:30 AM EST Telemedicine [facility] MED & PEDS [address] [place] [address] Evelina Pimentel RN [address] [place] [address] documented as of this encounter Visit Diagnoses Diagnosis 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
--- OUTSIDE RECORDS SUMMARY | 2025-08-21 04:44 | XMS_ITS | Encounter Summary ---
Author Organization [employer] Address [address] [place] [address] Care Team Providers Care Track Broom Operator Name Role Phone Calre Mo MD Primary Care Provider +1 [phone] Reason for Referral * Imaging (Routine) - Closed Specialty Diagnoses / Procedures Referred By Contac t Referred To Contact Radiology Diagnoses Low back pain at multiple sites Procedures MR Lumbar Spine w/o Contrast Clare Mo MD [address] [place], [place] Phone: tel: fax: [facility] [address] [place] [address] Phone: tel: fax: Referral ID Status Reason Start Date Expiration Date Visits Re quested Visits Authorized [id number] Closed 01/10/2025 01/10/2026 1 1 * Imaging (Urgent) - Closed Specialty Diagnoses / Procedures Referred By Contac t Referred To Contact Radiology Diagnoses Foraminal stenosis of cervical region Procedures MR Cervical Spine w/o Contrast Clare Mo MD [address] [place] [address] Phone: tel: fax: [facility] [address] [place] [address] Phone: tel: fax: Referral ID Status Reason Start Date Expiration Date Visits Re quested Visits Authorized [id number] Closed 01/03/2025 01/03/2026 1 1 Encounter Details Date Type Department Care Team (Late st Contact Info) Description 01/03/2025 Orders Only [facility] CHC MED & PEDS [address] [place] [address] Clare Mo MD [address] [place] [address] Foraminal stenosis of cervical region (Primary Dx); Low back pain at multiple sites Social History Tobacco Use Types Packs/Day Years [...] Info) Description 10/08/2025 10:30 AM EST Telemedicine [facility] CHC MED & PEDS [address] [place] [address] Evelina Pimentel, RN [address] [place] [address] documented as of this encounter Procedures Procedure Name Priority Date/Time Associated Diagnosis Comments MR LUMBAR SPINE WO CONTRAST Routine 01/10/2025 Low back pain at multiple sites MR CERVICAL SPINE WO CONTRAST Urgent 01/10/2025 Foraminal stenosis of cervical region documented in this encounter Results * MR Lumbar Spine w/o Contrast (01/10/2025) Anatomical Region Laterality Modality Spine, L-spine Magnetic Resonan ce us Clare Mo MD IMG MRI PROCEDURES Final Re sult * MR Cervical Spine w/o Contrast (01/10/2025) Anatomical Region Laterality Modality Spine, C-spine Magnetic Resonan ce us Clare Mo MD IMG MRI PROCEDURES Final Re sult documented in this encounter Visit Diagnoses Diagnosis Foraminal stenosis of cervical region- Primary Low back pain at multiple sites documented in this encounter Care Teams Track Broom Operator Relationship Specialty Start Date End Date Clare Mo MD [address] [place] [address] PCP - General Internal Medicine 03/17/17 documented as of this encounter
--- OUTSIDE RECORDS SUMMARY | 2025-08-21 04:44 | XMS_ITS | Encounter Summary ---
Author Organization [employer] Address 75 [facility] 7 [place] [address] Care Team Providers Care Compressor Mechanic Name Role Phone Clare Mo MD Primary Care Provider +1- [phone] Encounter Details Date Type Department Care Team ([facility] Contact Info) Description 09/29/2024 Orders Only [facility] CHC MED & PEDS [address] [place], [place] [phone] Clare Mo MD [address] [place] [address] Social History Tobacco Use Types Packs/Day Years [...] Info) Description 10/08/2025 10:30 AM EST Telemedicine [facility] MED & PEDS [address] [place] [address] Evelina Pimentel RN [address] [place] [address] documented as of this encounter Visit Diagnoses Not on filedocumented in this encounter Care Teams Compressor Mechanic Relationship Specialty Start Date End Date Clare Mo MD [address] [place] [address] PCP - General Internal Medicine 03/17/17 documented as of this encounter
--- OUTSIDE RECORDS SUMMARY | 2025-08-21 04:44 | XMS_ITS | Encounter Summary ---
Author Organization [employer] Address [address] [place] [address] Care Team Providers Care Continuous Weld Pipe Mill Supervisor Name Role Phone Clare Mo MD Primary Care Provider +1- [phone] Encounter Details Date Type Department Care Team ([facility] Contact Info) Description 03/23/2023 Orders Only [facility] CHC MED & PEDS [address] [place] [address] Clare Mo MD [address] [place] [address] Chronic low back pain with sciatica, sciatica [...] Upcoming Encounters Date Type Department Care Team ([facility] Contact Info) Description 10/08/2025 10:30 AM EST Telemedicine [facility] CHC MED & PEDS [address] [place] [address] Evelina Pimentel, RN [address] [place] [address] documented as of this encounter Visit Diagnoses Diagnosis Chronic low back pain with sciatica, sciatica laterality unspecified, unspecified back pain laterality- Primary Vitamin D deficiency documented in this encounter Care Teams Continuous Weld Pipe Mill Supervisor Relationship Specialty Start Date End Date Clare Mo MD [address] [place] [address] PCP - General Internal Medicine 03/17/17 documented as of this encounter
--- OUTSIDE RECORDS SUMMARY | 2025-08-21 04:44 | XMS_ITS | Encounter Summary ---
Author Organization [employer] Address [address] [facility] [address] [address] Care Team Providers Care Hot Dip Plating Supervisor Name Role Phone Clare Mo MD Primary Care Provider +1- [phone] Reason for Visit * Reason Onset Date Comments Med Refill 03/03/2024 Encounter Details Date Type Department Care Team ([facility] st Contact Info) Description 03/03/2024 Telephone [facility] MEDICINE [address] [place] [address] Clare Mo MD [address] [place], [place] [phone] Med Refill Social History Tobacco Use Types Packs/Day Years Used Date Smoking Tobacco: Former Cigarettes Housing Stability Answer Date Recorded What is your housing situation today? I have rosemary zungia 06/28/[address] you li [...] as they should both have refills at [facility]. * Telephone Encounter - Ayla Gongora - 03/03/2024 10:18 AM EDT TC from pt requesting medication refill. Medications needing refill : cyclobenzaprine (Flexeril) 10 MG tablet gabapentin (Neurontin) 800 MG tablet To be sent to: [facility] - [place], [place] - [address] [place] [address] documented in this encounter Plan of Treatment Upcoming Encounters Date Type Department Care Team (Late st Contact Info) Description 10/08/2025 10:30 AM EST Telemedicine [facility] MED & PEDS 505 [place] [address] Evelina Pimentel, IWLBER 505 [place] [address] documented as of this encounter Visit Diagnoses Diagnosis Anxiety Anxiety state, unspecified Chronic low back pain with sciatica, sciatica laterality unspecified, unspecified back pain laterality documented in this encounter Care Teams Hot Dip Plating Supervisor Relationship Specialty Start Date End Date Clare Mo MD [address] [place] [address] PCP - General Internal Medicine 03/17/17 documented as of this encounter
--- OUTSIDE RECORDS SUMMARY | 2025-08-21 04:44 | XMS_ITS | Encounter Summary ---
Author Organization [employer] Address 75 [facility] 7 [place] [address] Care Team Providers Care Classifier Name Role Phone Clare Mo MD Primary Care Provider +1- [phone] Reason for Visit * Reason Onset Date Comments Med Refill 01/09/2025 Encounter Details Date Type Department Care Team ([facility] st Contact Info) Description 01/09/2025 Refill [facility] MEDICINE [address] [place] [address] Clare Mo MD 505 [place] [address] Chronic low back pain with sciatica, sciatica [...] Upcoming Encounters Date Type Department Care Team ([facility] st Contact Info) Description 10/08/2025 10:30 AM EST Telemedicine [facility] MED & PEDS 505 [place] [address] Evelina Pimentel, WILBER 505 [place] [address] documented as of this encounter Visit Diagnoses Diagnosis Chronic low back pain with sciatica, sciatica laterality unspecified, unspecified back pain laterality documented in this encounter Care Teams Classifier Relationship Specialty Start Date End Date Clare Mo MD [address] [place] [address] PCP - General Internal Medicine 03/17/17 documented as of this encounter
--- OUTSIDE RECORDS SUMMARY | 2025-08-21 04:44 | XMS_ITS | Encounter Summary ---
Author Organization [employer] Address [address] [place] [address] Care Team Providers Care Wool Grader Name Role Phone Clare Mo MD Primary Care Provider +1- [phone] Reason for Visit * Reason Onset Date Comments Med Refill 12/18/2024 Medications 12/18/2024 Encounter Details Date Type Department Care Team ([facility] st Contact Info) Description 12/18/2024 Refill [facility] MED & PEDS 505 [place] [address] Clare Mo MD 505 [place] [address] Chronic low back pain with sciatica, sciatica [...] encounter Miscellaneous Notes * Telephone Encounter - Clare Mo MD - 12/18/2024 4:04 PM EDT Violation of the [facility] agreement * Telephone Encounter - Evelina Pimentel RN - 12/18/2024 3:43 PM EDT TC to pt to check on the states of police report. Pt stated she is unable to fill out a report in [place], [place] since the incident (TC 12/07/24) happened in [place]. Pt stated she can go to police station and lie that incident happened in [place] to make us happy . Pt states PCP has to give her something for pain because she does not have anything. PCP notified. Per PCP Dahiana, security will be notified as well. * Telephone Encounter - Evelina Pimentel RN - 12/18/2024 1:49 PM EDT Pt asking for a refill of Percocet. Last refill 12/07/24 #100. I do not see a copy of police report?Tried calling pt, no answer. Please advise. documented in this encounter Plan of Treatment Upcoming Encounters Date Type Department Care Team ([facility] st Contact Info) Description 10/08/2025 10:30 AM EST Telemedicine [facility] MED & PEDS [address] [place] [address] Evelina Pimentel RN 505 [place] [address] documented as of this encounter Visit Diagnoses Diagnosis Chronic low back pain with sciatica, sciatica laterality unspecified, unspecified back pain laterality documented in this encounter Care Teams Wool Grader Relationship Specialty Start Date End Date Clare Mo MD [address] [place] [address] PCP - General Internal Medicine 03/17/17 documented as of this encounter
--- OUTSIDE RECORDS SUMMARY | 2025-08-21 04:44 | XMS_ITS | Encounter Summary ---
Author Organization [employer] Address 75 [facility] [address] [address] Care Team Providers Care Mobility Architect Name Role Phone Clare Mo MD Primary Care Provider +1- [phone] Reason for Visit * Reason Onset Date Comments Call Back Request 06/11/2025 Encounter Details Date Type Department Care Team ([facility] Contact Info) Description 06/11/[address] [facility] MEDICINE [address] [place] [address] Clare Mo MD 505 [place], [place] [phone] Call Back Request Social History Tobacco Use [...] encounter Miscellaneous Notes * Telephone Encounter - Sofy Kramer - 06/11/2025 8:45 AM EDT Tc fro pt requesting a call back, pt stated she has an family emergency and would like to speak with Kristen. Contact pt at [phone] documented in this encounter Plan of Treatment Upcoming Encounters Date Type Department Care Team (Late st Contact Info) Description 10/08/2025 10:30 AM EST Telemedicine [facility] MED & PEDS 505 [place] [address] Evelina Pimentel RN 505 [place] [address] documented as of this encounter Visit Diagnoses Not on filedocumented in this encounter Care Teams Mobility Architect Relationship Specialty Start Date End Date Clare Mo MD 505 [place] [address] PCP - General Internal Medicine 03/17/17 documented as of this encounter
--- OUTSIDE RECORDS SUMMARY | 2025-08-21 04:44 | XMS_ITS | Encounter Summary ---
Author Organization [employer] Address 75 [facility] 7 [place] [address] Care Team Providers Care Supervisor Tile And Mottle Name Role Phone Clare Mo MD Primary Care Provider +1- [phone] Encounter Details Date Type Department Care Team ([facility] Contact Info) Description 07/19/2025 Orders Only [facility] CHC MED & PEDS 505 [place], [place] [phone] Clare Mo MD 505 [place], [place] [phone] Anxiety (Primary Dx) Social History Tobacco Use Types [...] Upcoming Encounters Date Type Department Care Team ([facility] st Contact Info) Description 10/08/2025 10:30 AM EST Telemedicine [facility] MED & PEDS 505 [place] [address] Evelina Pimentel, WILBER 505 [place] [address] documented as of this encounter Visit Diagnoses Diagnosis Anxiety- Primary Anxiety state, unspecified documented in this encounter Care Teams Supervisor Tile And Mottle Relationship Specialty Start Date End Date Clare Mo MD 505 [place] [address] PCP - General Internal Medicine 03/17/17 documented as of this encounter
--- OUTSIDE RECORDS SUMMARY | 2025-08-21 04:44 | XMS_ITS | Encounter Summary ---
Author Organization [email or web address] Address [address] [place] [address] Care Team Providers Care Manager Telemarketing Name Role Phone Clare Mo MD Primary Care Provider +1- [phone] Reason for Visit * Reason Onset Date Comments Med Refill 03/09/2023 Encounter Details Date Type Department Care Team ([facility] Contact Info) Description 03/09/2023 Telephone [facility] CH[facility] MED & PEDS [address] [place] [address] Clare Mo MD 505 [place] [address] Med Refill Social History Tobacco Use Types [...] (Xanax) 1 MG tablet Please sent to [facility] - [place], [place] - [address] [facility] documented in this encounter Plan of Treatment Upcoming Encounters Date Type Department Care Team ([facility] st Contact Info) Description 10/08/2025 10:30 AM EST Telemedicine [facility] MED & PEDS [address] [place] [address] Evelina Pimentel, WILBER 505 [place] [address] documented as of this encounter Visit Diagnoses Not on filedocumented in this encounter Care Teams Manager Telemarketing Relationship Specialty Start Date End Date Clare Mo MD 505 [place] [address] PCP - General Internal Medicine 03/17/17 documented as of this encounter
--- OUTSIDE RECORDS SUMMARY | 2025-08-21 04:44 | XMS_ITS | Encounter Summary ---
Author Organization [employer] Address 75 [facility] [address] [address] Care Team Providers Care Piping Design Specialist Name Role Phone Clare Mo MD Primary Care Provider +1- [phone] Reason for Visit * Reason Onset Date Comments Med Refill 01/03/2025 Encounter Details Date Type Department Care Team ([facility] st Contact Info) Description 01/03/2025 Telephone [facility] MEDICINE [address] [place] [address] Clare Mo MD [address] [place], [place] [phone] Med Refill Social History Tobacco Use Types [...] * Telephone Encounter - Arnold Youngblood - 01/03/2025 2:31 PM EDT TC from pt requesting medication refill. Medications needing refill : ALPRAZolam (Xanax) 1 MG tablet To be sent to: [facility] - [place], [place] - [address] [place] [address] documented in this encounter Plan of Treatment Upcoming Encounters Date Type Department Care Team (Late st Contact Info) Description 10/08/2025 10:30 AM EST Telemedicine [facility] MED & PEDS [address] [place] [address] Evelina Pimentel RN 505 [place] [address] documented as of this encounter Visit Diagnoses Not on filedocumented in this encounter Care Teams Piping Design Specialist Relationship Specialty Start Date End Date Clare Mo MD [address] [place] [address] PCP - General Internal Medicine 03/17/17 documented as of this encounter
--- OUTSIDE RECORDS SUMMARY | 2025-08-21 04:44 | XMS_ITS | Encounter Summary ---
Author Organization [employer] Address 75 [facility] 7 [place] [address] Care Team Providers Care Auxiliary Equipment Tender Name Role Phone Clare Mo MD Primary Care Provider +1- [phone] Encounter Details Date Type Department Care Team ([facility] Contact Info) Description 12/18/2024 Orders Only [facility] CH[facility] MED & PEDS [address] [place], [place] [phone] Clare Mo MD 505 [place] [address] Social History Tobacco Use Types Packs/Day Years [...] Info) Description 10/08/2025 10:30 AM EST Telemedicine [facility] MED & PEDS [address] [place] [address] Evelina Pimentel RN [address] [place] [address] documented as of this encounter Visit Diagnoses Not on filedocumented in this encounter Care Teams Auxiliary Equipment Tender Relationship Specialty Start Date End Date Clare Mo MD [address] [place] [address] PCP - General Internal Medicine 03/17/17 documented as of this encounter
--- OUTSIDE RECORDS SUMMARY | 2025-08-21 04:44 | XMS_ITS | Encounter Summary ---
Author Organization [employer] Address 75 [facility] 7t [place] [address] Care Team Providers Care Forming Roll Operator Name Role Phone Clare Mo MD Primary Care Provider +1- [phone] Encounter Details Date Type Department Care Team ([facility] Contact Info) Description 02/27/2025 Orders Only [facility] CHC MED & PEDS [address] [place], [place] [phone] Provider, MD Radhika Social History Tobacco Use Types Packs/Day Years [...] Upcoming Encounters Date Type Department Care Team ([facility] st Contact Info) Description 10/08/2025 10:30 AM EST Telemedicine [facility] MED & PEDS [address] [place] [address] Evelina Pimentel RN 505 [place] [address] documented as of this encounter Procedures Procedure Name Priority Date/Time Associated Diagnosis Comments HM COLONOSCOPY Routine 08/31/2024 10:14 AM EST SURGICAL PATHOLOGY Routine 08/31/2024 10:12 AM EST documented in this encounter Results * Hm Colonoscopy (08/31/2024 10:14 AM EST) us Historical Provider HEALTH MAINTENANCE Final Result * Surgical Pathology (08/31/2024 10:12 AM EST) us Historical Provider LAB PATHOLOGY ORDERABLES Final Result documented in this encounter Visit Diagnoses Not on filedocumented in this encounter Care Teams Forming Roll Operator Relationship Specialty Start Date End Date Clare Mo MD 505 [place] [address] PCP - General Internal Medicine 03/17/17 documented as of this encounter
--- OUTSIDE RECORDS SUMMARY | 2025-08-21 04:44 | XMS_ITS | Encounter Summary ---
Author Organization [employer] Address 75 [facility] [address] [address] Care Team Providers Care Object Oriented Developer Name Role Phone Clare Mo MD Primary Care Provider +1- [phone] Reason for Visit * Reason Onset Date Comments Med Refill 02/06/2025 Encounter Details Date Type Department Care Team ([facility] st Contact Info) Description 02/06/2025 Telephone [facility] MEDICINE [address] [place] [address] Clare Mo MD [address] [place], [place] [phone] Med Refill Social History Tobacco Use Types [...] encounter Miscellaneous Notes * Telephone Encounter - Little Mosqueda - 02/06/2025 8:22 AM EDT TC from pt requesting medication refill. Medications needing refill : oxyCODONE-acetaminophen (Percocet) 10-325 MG tablet To be sent to: [facility] documented in this encounter Plan of Treatment Upcoming Encounters Date Type Department Care Team (Late st Contact Info) Description 10/08/2025 10:30 AM EST Telemedicine [facility] MED & PEDS 505 [place] [address] Evelina Pimentel RN 505 [place] [address] documented as of this encounter Visit Diagnoses Not on filedocumented in this encounter Care Teams Object Oriented Developer Relationship Specialty Start Date End Date Clare Mo MD 505 [place] [address] PCP - General Internal Medicine 03/17/17 documented as of this encounter
--- OUTSIDE RECORDS SUMMARY | 2025-08-21 04:44 | XMS_ITS | Encounter Summary ---
Author Organization [employer] Address [address] [place] [address] Care Team Providers Care Combine Inspector Name Role Phone Clare Mo MD Primary Care Provider +1- [phone] Reason for Visit * Reason Comments Med Refill Encounter Details Date Type Department Care Team ([facility] Contact Info) Description 03/09/2023 Refill [facility] CH[facility] MED & PEDS [address] [place] [address] Clare Mo MD [address] [place] [address] Chronic low back pain with sciatica, sciatica [...] Upcoming Encounters Date Type Department Care Team ([facility] Contact Info) Description 10/08/2025 10:30 AM EST Telemedicine [facility] MED & PEDS [address] [place] [address] Evelina Pimentel, WILBER 505 [place] [address] documented as of this encounter Visit Diagnoses Diagnosis Chronic low back pain with sciatica, sciatica laterality unspecified, unspecified back pain laterality Anxiety Anxiety state, unspecified documented in this encounter Care Teams Combine Inspector Relationship Specialty Start Date End Date Clare Mo MD [address] [place] [address] PCP - General Internal Medicine 03/17/17 documented as of this encounter
--- OUTSIDE RECORDS SUMMARY | 2025-08-21 04:44 | XMS_ITS | Encounter Summary ---
Author Organization [employer] Address [address] [address] Care Team Providers Care Vat Skimmer Name Role Phone Clare Mo MD Primary Care Provider +1- [phone] Reason for Visit * Reason Onset Date Comments Med Refill 03/19/2023 Encounter Details Date Type Department Care Team ([facility] Contact Info) Description 03/19/2023 Telephone [facility] MED & PEDS 505 [place] [address] Clare Mo MD 505 [place] [address] Med Refill Social History Tobacco Use Types [...] Upcoming Encounters Date Type Department Care Team ([facility] st Contact Info) Description 10/08/2025 10:30 AM EST Telemedicine [facility] MED & PEDS 505 [place] [address] Evelina Pimentel, RN 505 [place] [address] documented as of this encounter Visit Diagnoses Not on filedocumented in this encounter Care Teams Vat Skimmer Relationship Specialty Start Date End Date Clare Mo MD [address] [place] [address] PCP - General Internal Medicine 03/17/17 documented as of this encounter
--- OUTSIDE RECORDS SUMMARY | 2025-08-21 04:44 | XMS_ITS | Encounter Summary ---
Author Organization [employer] Address 75 [facility] 7 [place] [address] Care Team Providers Care Software Applications Engineer Name Role Phone Clare Mo MD Primary Care Provider +1- [phone] Encounter Details Date Type Department Care Team ([facility] Contact Info) Description 03/02/2025 Orders Only [facility] CHC MED & PEDS 505 [place], [place] [phone] Clare Mo MD 505 [place], [place] [phone] Hypoproteinemia (CMS/HCC) (Primary Dx); Transaminitis Social History Tobacco Use Types Packs/Day Years [...] Info) Description 10/08/2025 10:30 AM EST Telemedicine [facility] CH[facility] MED & PEDS 505 [place] [address] Evelina Pimentel, RN [address] [place] [address] documented as of this encounter Procedures Procedure Name Priority Date/Time Associated Diagnosis Comments COMPREHENSIVE METABOLIC PANEL Routine 04/10/2025 11:39 AM EDT Hypoproteinemia (CMS/HCC) Transaminitis documented in this encounter Results * (ABNORMAL) Comprehensive Metabolic Panel (04/10/2025 11:39 AM EDT) Sodium 141 135 - 145 mmol/L [facility] Potassium 3.7 3.3 - 5.1 mmol/L [facility] Chloride 106 96 - 108 mmol/L [facility] Carbon Dioxide 26 22 - 29 mmol/L [facility] Anion Gap 13 12 - 20 [facility] Urea Nitrogen (BUN) 14 9 - 16 mg/dL [facility] Creatinine, Serum 0.96 0.5 - 1.4 mg/dL [facility] Estimated Glomerular Filt Rate >60 [facility] Comment:Chronic Kidney Disea se: Estimated GFR < 60 mL/min/[id number] Kidney Disease: Estimated GFR < 15 mL/min/1.73m2 Glucose 120(H) 60 - 115 mg/dL [facility] Calcium 9.4 8.4 - 10.2 mg/dL [facility] Bilirubin, Total 0.4 0.0 - 1.0 mg/dL [facility] Aspartate Amino Transferase 24 5 - 31 U/L [facility] Alanine Aminotransferase 28 0 - 31 U/L [facility] Total Protein 7.6 6.5 - 8.0 g/dL [facility] Albumin Level 4.7 3.5 - 5.0 g/dL [facility] Alkaline Phosphatase 69 39 - 117 U/L [facility] Blood Venous blood specimen / Unknown 04/10/2025 11:39 AM EDT 04/10/2025 2:04 PM EDT Clare Mo MD LAB BLOOD ORDERABLES Final Result [facility] [address] [place] [address] [phone] documented in this encounter Visit Diagnoses Diagnosis Hypoproteinemia (CMS/HCC)- Primary Other disorders of plasma protein metabolism Transaminitis Nonspecific elevation of levels of transaminase or lactic acid dehydrogenase (LDH) documented in this encounter Care Teams Software Applications Engineer Relationship Specialty Start Date End Date Clare Mo MD [address] [place] [address] PCP - General Internal Medicine 03/17/17 documented as of this encounter
--- OUTSIDE RECORDS SUMMARY | 2025-08-21 04:44 | XMS_ITS | Encounter Summary ---
Author Organization [employer] Address 75 [facility] 7 [place] [address] Care Team Providers Care Mold Clamper Name Role Phone Clare Mo MD Primary Care Provider +1- [phone] Reason for Visit * Reason Comments Med Refill Encounter Details Date Type Department Care Team ([facility] st Contact Info) Description 01/25/2024 Refill [facility] MEDICINE [address] [place] [address] Clare Mo MD [address] [place], [place] [phone] Chronic low back pain with sciatica, sciatica [...] Info) Description 10/08/2025 10:30 AM EST Telemedicine [facility] MED & PEDS 505 [place] [address] Evelina Pimentel RN 505 [place] [address] documented as of this encounter Visit Diagnoses Diagnosis Chronic low back pain with sciatica, sciatica laterality unspecified, unspecified back pain laterality Anxiety Anxiety state, unspecified documented in this encounter Care Teams Mold Clamper Relationship Specialty Start Date End Date Clare Mo MD [address] [place] [address] PCP - General Internal Medicine 03/17/17 documented as of this encounter
--- OUTSIDE RECORDS SUMMARY | 2025-08-21 04:44 | XMS_ITS | Encounter Summary ---
Author Organization [employer] Address 75 [facility] [place] [address] Care Team Providers Care Renal Technician Name Role Phone Clare Mo MD Primary Care Provider +1- [phone] Reason for Visit * Reason Comments Med Refill Encounter Details Date Type Department Care Team ([facility] Contact Info) Description 03/21/2025 Refill [facility] MED & PEDS [address] [place], [place] [phone] Clare Mo MD [address] [place] [address] Anxiety Social History Tobacco Use Types Packs/Day [...] Upcoming Encounters Date Type Department Care Team ([facility] st Contact Info) Description 10/08/2025 10:30 AM EST Telemedicine [facility] MED & PEDS 505 [place] [address] Evelina Pimentel, WILBER 505 [place] [address] documented as of this encounter Visit Diagnoses Diagnosis Anxiety Anxiety state, unspecified documented in this encounter Care Teams Renal Technician Relationship Specialty Start Date End Date Clare Mo MD [address] [place] [address] PCP - General Internal Medicine 03/17/17 documented as of this encounter
--- OUTSIDE RECORDS SUMMARY | 2025-08-21 04:44 | XMS_ITS | Encounter Summary ---
Author Organization [employer] Address 75 [facility] 7[place] [address] Care Team Providers Care Market Specialist Name Role Phone Clare Mo MD Primary Care Provider +1- [phone] Reason for Visit * Reason Onset Date Comments Medication Question 06/28/2025 Encounter Details Date Type Department Care Team ([facility] Contact Info) Description 06/28/2025 Telephone [facility] MED & PEDS [address] [place] [address] Clare Mo MD 505 [place] [address] Medication Question Social History Tobacco Use Types [...] encounter Miscellaneous Notes * Telephone Encounter - Rosangela Moses - 06/28/2025 10:14 AM EDT Tc from pt requesting if dosage for Xanax be increased. Pt states she just lost her mom . Contact pt at [phone] documented in this encounter Plan of Treatment Upcoming Encounters Date Type Department Care Team (Late st Contact Info) Description 10/08/2025 10:30 AM EST Telemedicine [facility] MED & PEDS [address] [place] [address] Evelina Pimentel RN 505 [place] [address] documented as of this encounter Visit Diagnoses Not on filedocumented in this encounter Care Teams Market Specialist Relationship Specialty Start Date End Date Clare Mo MD 505 [place] [address] PCP - General Internal Medicine 03/17/17 documented as of this encounter
--- OUTSIDE RECORDS SUMMARY | 2025-08-21 04:44 | XMS_ITS | Encounter Summary ---
Author Organization [employer] Address [address] [place] [address] Care Team Providers Care Math Tutor Name Role Phone Clare Mo MD Primary Care Provider +1- [phone] Reason for Visit * Reason Onset Date Comments Medication Question 03/19/2023 Encounter Details Date Type Department Care Team ([facility] Contact Info) Description 03/19/2023 Telephone [facility] CHC MED & PEDS [address] [place] [address] Clare Mo MD [address] [place] [address] Medication Question Social History Tobacco Use Types [...] increase, pt requested to speak to nurse powder worker tnt, Inspector Conveyor Line advice to return call after 9:30 where she can be connected to a refrigeration manager or nurse, pt agreed to plan. * Telephone Encounter - Dania Medeiros - 03/19/2023 12:16 PM EDT Tc from pt wants to know if PCP can up the dosage for oxyCODONE-acetaminophen (Percocet) 7.5-325 MGtablet documented in this encounter Plan of Treatment Upcoming Encounters Date Type Department Care Team (Late st Contact Info) Description 10/08/2025 10:30 AM EST Telemedicine [facility] MED & PEDS [address] [place] [address] Evelina Pimentel, RN [address] [place] [address] documented as of this encounter Visit Diagnoses Not on filedocumented in this encounter Care Teams Math Tutor Relationship Specialty Start Date End Date Clare Mo MD [address] [place] [address] PCP - General Internal Medicine 03/17/17 documented as of this encounter
--- OUTSIDE RECORDS SUMMARY | 2025-08-21 04:44 | XMS_ITS | Encounter Summary ---
Author Organization [employer] Address 75 [facility] 7 [place] [address] Care Team Providers Care Patient Advocate Name Role Phone Clare Mo MD Primary Care Provider +1- [phone] Encounter Details Date Type Department Care Team ([facility] Contact Info) Description 10/20/2024 Orders Only [facility] CHC MED & PEDS [address] [place], [place] [phone] Clare Mo MD 505 [place] [address] Chronic low back pain with sciatica, sciatica laterality unspecified, unspecified back pain laterality (Primary Dx) Social History Tobacco Use Types Packs/Day Years Used Date Smoking Tobacco: Former Cigarettes Housing Stability Answer Date Recorded What is your housing situation today? I have rosemary naida 06/02/[address] you li [...] the past 12 months, has t he [employer], gas, oil or water company threatened [...] Upcoming Encounters Date Type Department Care Team ([facility] st Contact Info) Description 10/08/2025 10:30 AM EST Telemedicine [facility] MED & PEDS [address] [place] [address] Evelina Pimentel RN [address] [place] [address] documented as of this encounter Visit Diagnoses Diagnosis Chronic low back pain with sciatica, sciatica laterality unspecified, unspecified back pain laterality- Primary documented in this encounter Care Teams Patient Advocate Relationship Specialty Start Date End Date Clare Mo MD 505 [place] [address] PCP - General Internal Medicine 03/17/17 documented as of this encounter
--- OUTSIDE RECORDS SUMMARY | 2025-08-21 04:44 | XMS_ITS | Encounter Summary ---
Author Organization [employer] Address 75 [facility] 7 [place] [address] Care Team Providers Care Enrichment Director Name Role Phone Clare Mo MD Primary Care Provider +1- [phone] Encounter Details Date Type Department Care Team ([facility] Contact Info) Description 02/06/2025 Orders Only [facility] [address] [place], [place] [phone] Provider, MD Radhika Social History Tobacco Use [...] 10/08/2025 10:30 AM EST Telemedicine [facility] MED & PEDS [address] [place] [address] Evelina Pimentel, WILBER [address] [place] [address] documented as of this encounter Procedures Procedure Name Priority Date/Time Associated Diagnosis Comments XR CERVICAL SPINE 1 VW Routine 02/01/2025 9:37 AM EDT documented in this encounter Results * XR CERVICAL SPINE 1 VW (02/01/2025 9:37 AM EDT) Anatomical Region Laterality Modality Radiographic Brittany ging us Historical Provider MD ALAMO XR PROCEDURES Final R esult documented in this encounter Visit Diagnoses Not on filedocumented in this encounter Care Teams Enrichment Director Relationship Specialty Start Date End Date Clare Mo MD [address] [place] [address] PCP - General Internal Medicine 03/17/17 documented as of this encounter
--- OUTSIDE RECORDS SUMMARY | 2025-08-21 04:44 | XMS_ITS | Encounter Summary ---
Author Organization [employer] Address 75 [facility] 7 [place] [address] Care Team Providers Care Wire Charger Name Role Phone Clare Mo MD Primary Care Provider +1 [phone] Encounter Details Date Type Department Care Team ([facility] Contact Info) Description 02/24/2024 Orders Only [facility] [address] [place], [place] [phone] Provider, MD Radhika Social History Tobacco Use [...] Info) Description 10/08/2025 10:30 AM EST Telemedicine [facility] MED & PEDS [address] [place] [address] Evelina Pimentel, RN [address] [place] [address] documented as of this encounter Procedures Procedure Name Priority Date/Time Associated Diagnosis Comments MRI CERVICAL SPINE WO CONTRAST Routine 02/01/2024 1:46 PM EDT documented in this encounter Results * MRI CERVICAL SPINE WO CONTRAST (02/01/2024 1:46 PM EDT) Anatomical Region Laterality Modality Magnetic Resonan ce Historical Provider MD ALAMO MRI PROCEDURES Final Result documented in this encounter Visit Diagnoses Not on filedocumented in this encounter Care Teams Wire Charger Relationship Specialty Start Date End Date Clare Mo MD [address] [place] [address] PCP - General Internal Medicine 03/17/17 documented as of this encounter
--- OUTSIDE RECORDS SUMMARY | 2025-08-21 04:44 | XMS_ITS | Encounter Summary ---
Author Organization [employer] Address 75 [facility] [place] [address] Care Team Providers Care Desk Assistant Name Role Phone Clare Mo MD Primary Care Provider +1- [phone] Reason for Visit * Reason Onset Date Comments Med Refill 02/05/2025 Encounter Details Date Type Department Care Team ([facility] st Contact Info) Description 02/05/2025 Refill [facility] MEDICINE [address] [place] [address] Clare Mo MD [address] [place], [place] [phone] Foraminal stenosis of cervical region Social History Tobacco Use Types Packs/Day Years [...] 10/08/2025 10:30 AM EST Telemedicine [facility] MED & PEDS [address] [place] [address] Evelina Pimentel RN 505 [place] [address] documented as of this encounter Visit Diagnoses Diagnosis Foraminal stenosis of cervical region documented in this encounter Care Teams Desk Assistant Relationship Specialty Start Date End Date Clare Mo MD [address] [place] [address] PCP - General Internal Medicine 03/17/17 documented as of this encounter
--- OUTSIDE RECORDS SUMMARY | 2025-08-21 04:44 | XMS_ITS | Encounter Summary ---
Author Organization [employer] Address 75 [facility] 7 [place] [address] Care Team Providers Care Breast Surgeon Name Role Phone Clare Mo MD Primary Care Provider +1- [phone] Reason for Visit * Reason Comments Med Refill Encounter Details Date Type Department Care Team ([facility] st Contact Info) Description 02/06/2025 Refill [facility] MEDICINE [address] [place] [address] Clrae Mo MD [address] [place], [place] [phone] Foraminal stenosis of cervical region Social History [...] Info) Description 10/08/2025 10:30 AM EST Telemedicine [facility] CHC MED & PEDS [address] [place] [address] Evelina Pimentel, WILBER [address] [place] [address] documented as of this encounter Visit Diagnoses Diagnosis Foraminal stenosis of cervical region documented in this encounter Care Teams Breast Surgeon Relationship Specialty Start Date End Date Clare Mo MD [address] [place] [address] PCP - General Internal Medicine 03/17/17 documented as of this encounter
--- OUTSIDE RECORDS SUMMARY | 2025-08-21 04:44 | XMS_ITS | Encounter Summary ---
Author Organization [employer] Address 75 [facility] [place] [address] Care Team Providers Care Orchid Hand Name Role Phone Clare Mo MD Primary Care Provider +1- [phone] Reason for Visit * Reason Onset Date Comments Med Refill 01/02/2025 Encounter Details Date Type Department Care Team ([facility] st Contact Info) Description 01/02/[address] [facility] CHC MED & PEDS [address] [place] [address] Clare Mo MD [address] [place] [address] Foraminal stenosis of cervical region (Primary Dx); Anxiety Social History Tobacco Use Types Packs/Day [...] Team ([facility] Contact Info) Description 10/08/2025 10:30 AM EST Telemedicine [facility] MED & PEDS [address] [place] [address] Evelina Pimentel, WILBER [address] [place] [address] documented as of this encounter Visit Diagnoses Diagnosis Foraminal stenosis of cervical region- Primary Anxiety Anxiety state, unspecified documented in this encounter Care Teams Orchid Hand Relationship Specialty Start Date End Date Clare Mo MD [address] [place] [address] PCP - General Internal Medicine 03/17/17 documented as of this encounter
--- OUTSIDE RECORDS SUMMARY | 2025-08-21 04:44 | XMS_ITS | Encounter Summary ---
Author Organization [employer] Address [address] [address] Care Team Providers Care Tool Maintenance Technician Name Role Phone Clare Mo MD Primary Care Provider +1- [phone] Reason for Referral * Consultation (Routine) - Closed Specialty Diagnoses / Procedures Referred By Contac t Referred To Contact Orthopaedic Surgery Diagnoses Right hip pain SI joint arthritis (CMS/HCC) Clare Mo MD [address] [place] [address] Phone: tel: fax: [facility] [address] [place] [address] [address] [place] [address] Phone: tel: fax: Referral ID Status Reason Start Date Expiration Date V isits Requested Visits Authorized [id number] Closed Specialty Services Required 09/07/2024 09/07/2025 6 6 Encounter Details Date Type Department Care Team ([facility] Contact Info) Description 09/04/2024 Orders Only [facility] CHC MED & PEDS [address] [place], [place] [phone] Clare Mo MD [address] [place], [place] [phone] Right hip pain (Primary Dx); SI joint [...] Upcoming Encounters Date Type Department Care Team ([facility] st Contact Info) Description 10/08/2025 10:30 AM EST Telemedicine [facility] CHC MED & PEDS [address] [place] [address] Evelina Pimentel, WILBER [address] [place] [address] Scheduled Referrals Name Type Priority Associated Diagnoses Order Schedule Referral to Orthopaedic Surgery Outpatient Referral Routine Right hip pain SI joint arthritis (CMS/HCC) Expected: 09/04/2024 (Approximate), Expires: 09/04/2025 documented as of this encounter Visit Diagnoses Diagnosis Right hip pain- Primary Pain in joint, pelvic region and thigh SI joint arthritis (CMS/HCC) documented in this encounter Care Teams Tool Maintenance Technician Relationship Specialty Start Date End Date Clare Mo MD [address] [place] [address] PCP - General Internal Medicine 03/17/17 documented as of this encounter
--- OUTSIDE RECORDS SUMMARY | 2025-08-21 04:44 | XMS_ITS | Encounter Summary ---
Author Organization [employer] Address 75 [facility] [address] [address] Care Team Providers Care Loop Tender Name Role Phone Clare Mo MD Primary Care Provider +1- [phone] Reason for Visit * Reason Onset Date Comments Med Refill 11/10/2024 Encounter Details Date Type Department Care Team ([facility] st Contact Info) Description 11/10/2024 Telephone [facility] MEDICINE [address] [place] [address] Clare Mo MD [address] [place], [place] [phone] Med Refill Social History Tobacco Use Types [...] 1 MG tablet To be sent to: [facility] - [place], [place] - [address] [place] [address] ' ' documented in this encounter Plan of Treatment Upcoming Encounters Date Type Department Care Team (Late st Contact Info) Description 10/08/2025 10:30 AM EST Telemedicine [facility] CHC MED & PEDS [address] [place] [address] Evelina Pimentel, WILBER [address] [place] [address] documented as of this encounter Visit Diagnoses Not on filedocumented in this encounter Care Teams Loop Tender Relationship Specialty Start Date End Date Clare Mo MD [address] [place] [address] PCP - General Internal Medicine 03/17/17 documented as of this encounter
--- OUTSIDE RECORDS SUMMARY | 2025-08-21 04:44 | XMS_ITS | Encounter Summary ---
Author Organization [employer] Address [address] [place] [address] Care Team Providers Care Life Claims Examiner Name Role Phone Clare Mo MD Primary Care Provider +1- [phone] Reason for Referral * Consultation (Routine) - Closed Specialty Diagnoses / Procedures Referred By Contac t Referred To Contact Nutrition Diagnoses Obesity, unspecified classification, unspecified obesity type, unspecified whether serious comorbidity present Clare Mo MD [address] [place] [address] Phone: tel: fax: Referral ID Status Reason Start Date Expiration Date V isits Requested Visits Authorized [id number] Closed Consult and Treat 05/19/2024 05/19/2025 1 1 Encounter Details Date Type Department Care Team ([facility] st Contact Info) Description 05/19/2024 Orders Only [facility] CHC MED & PEDS [address] [place] [address] Clare Mo MD [address] [place] [address] Obesity, unspecified classification, unspecified obesity type, unspecified whether serious comorbidity present (Primary Dx) Social History Tobacco Use Types Packs/Day Years Used Date Smoking Tobacco: Former Cigarettes Housing Stability Answer Date Recorded What is your housing situation today? I have rosemayr zuniga 06/28/[address] you [...] [facility] MED & PEDS [address] [place] [address] Evelina Pimentel, WILBER [address] [place] [address] Scheduled Referrals Name Type Priority Associated Diagnoses Orde r Schedule Referral to Nutrition Therapy Outpatient Referral Routine Obesity, unspecified classification, unspecified obesity type, unspecified whether serious comorbidity present Expected: 05/19/2024 (Approximate), Expires: 05/19/2025 documented as of this encounter Visit Diagnoses Diagnosis Obesity, unspecified classification, unspecified obesity type, unspecified whether serious comorbidity present- Primary documented in this encounter Care Teams Life Claims Examiner Relationship Specialty Start Date End Date Clare Mo MD [address] [place] [address] PCP - General Internal Medicine 03/17/17 documented as of this encounter
--- OUTSIDE RECORDS SUMMARY | 2025-08-21 04:44 | XMS_ITS | Encounter Summary ---
Author Organization [employer] Address 75 [facility] [address], [place] [address] Care Team Providers Care [employer] Certified Internetwork Expert Name Role Phone Clare Mo MD Primary Care Provider +1- [phone] Reason for Visit * Reason Onset Date Comments Med Refill 11/28/2024 Encounter Details Date Type Department Care Team ([facility] st Contact Info) Description 11/28/2024 Telephone [facility] MEDICINE [address] [place] [address] Clare Mo MD [address] [place], [place] [phone] Med Refill Social History Tobacco Use Types [...] 10-325 MG tablet To be sent to: [facility] - [place], [place] - [address] [place] [address] documented in this encounter Plan of Treatment Upcoming Encounters Date Type Department Care Team (Late st Contact Info) Description 10/08/2025 10:30 AM EST Telemedicine [facility] CHC MED & PEDS [address] [place] [address] Evelina Pimentel, WILBER [address] [place] [address] documented as of this encounter Visit Diagnoses Not on filedocumented in this encounter Care Teams [employer] Certified Internetwork Expert Relationship Specialty Start Date End Date Clare Mo MD [address] [place] [address] PCP - General Internal Medicine 03/17/17 documented as of this encounter
--- OUTSIDE RECORDS SUMMARY | 2025-08-21 04:44 | XMS_ITS | Clinical Summary ---
Author Organization [facility] Address [address] [place] [address] Phone Care Team Providers Care Energy Crop Farmer Name Role Phone Clare Mo MD Primary Care Provider +1 -[phone] Allergies No known active allergies Medications ALPRAZolam (XANAX) 1 mg tablet Take 1 tablet (1 mg total) by mouth 1 (one) time each day if needed. for anxiety 4 Active oxyCODONE-acet aminophen (PERCOCET) 10-325 mg per tablet Take 1 tablet by mouth every 6 (six) hours if needed for severe pain. 4 Active cholecalcifero l (VITAMIN D-3) 25 mcg (1,000 unit) tablet Take 1 tablet (1,000 Units total) by mouth 1 (one) time each day. Active magnesium 250 mg tablet Take by mouth. Activ e pregabalin (LYRICA) 200 mg capsule Take 1 capsule (200 mg total) by mouth 2 times daily. 5 026 Active B complex-vitami n C-vitamin E-zinc tablet Take 1 tablet by mouth 1 (one) time each day. Active Alcohol Prep Pads pads, medicated 1 (one) time each day. 5 Active Omron BP Monitor-3 Series kit Check blood pressure on arm as directed EVERY DAY 5 Active blood sugar diagnostic (FreeStyle Lite Strips) test strip 1 (one) time each day. TEST BLOOD SUGAR 5 Active FreeStyle [place] Lite monitoring kit by extracorporeal route 1 (one) time each day. 5 Active Easy Touch Twist Lancets 33 gauge misc 1 Lancet by extracorporeal route 1 (one) time each day. 5 Active neomycin-polym yxin-hydrocort isone (CORTISPORIN) 3.5-10,000-1 mg/mL-unit/mL- % otic suspension PLACE 3 to 4 DROPS IN AFFECTED EAR(S) FOUR TIMES DAILY FOR 10 DAYS 5 Active dexAMETHasone (DECADRON) 2 mg tabletIndicati ons:Oropharyng eal dysphagia Take 1 tablet (2 mg total) by mouth every 8 (eight) hours for 5 days. 15 each 5 Active Active Problems Problem Noted Date Diagnosed Date Radiculopathy, cervical region 01/15/2025 Left hip pain 09/19/2024 Assessment & Plan (09/20/2024 10:06 AM EST): Ms. Macedo describes significant pain at the left hip. She had pain with hip mechanical testing on the left hand side. She was tender at the greater trochanter. She had x-rays of the hip performed at [facility] on 08/01/24. They revealed calcific [...] arms overhead, she had to ask the electrical maintenance technician to help her move her [...] & Plan (04/06/2025 11:52 AM EDT): Ms. Sroin joyner has not made the kind of [...] residual retropharyngeal swelling on her x-rays from [place]. I am putting her on low-dose Decadron [...] dynamic views performed when she went to [facility]. Assessment & Plan (02/14/2025 9:41 PM [...] Dr. Suggs when she is back from [place] (March 23). I asked her to call [...] she do this before her trip to [place] in March as she will be well [...] spine from January of this year at [facility] veal degenerative changes most significant at [...] told her she likely has fibromyalgia. Saw workforce specialist, was started on vitamin D, magnesium, vitamin [...] looking forward to starting treatment to [facility] hopefully this will provide her some relief. [...] lumbar cortisone injections back in 2020 at [facility]. She has been walking with a walker. Ms. Macedo describes left low back, buttock, hip and foot pain. She is having to walk with a walker, feels her balance is poor. We can check updated lumbar spine MRI with and without contrast to rule out recurrent disc herniation/nerve root compression. She would also like to be referred back to [facility] to see if they would offer left SI joint injection, she has tenderness over the SI joint, pain in the SI joint region with external hip rotation. She will go for the hip x-rays (already ordered by PCP) this coming week. We will follow-up with her after imaging is complete. Encounters Date Type Department Care Team Description 08/02/2025 Telephone [facility] [place] - [address] [place] [address] [place], [place] from Last 3 Months Immunizations Immunization Administration Dates Next Due Influenza trivalent, 0.5mL, [...] Safety Answer Date Record ed Physical Abuse Unrecognized value 02/01/2025 Verbal Abuse Unrecognized value 02/01/2025 Comments No Sex and Gender Information Value Date Recorded Sex Assigned at Not on file Legal Sex Female 2:55 AM EST Gender Identity Not on file Sexual Orientation Not on file Last Filed Vital Signs Vital Sign Reading [...] Cancer Screening 1980 Colorectal Cancer Screening: Colonoscopy 1980 Medicare Annual Wellness Visit 08/16/2022 Social Influencers of Health Screening 08/16/2022 Depression Screening 09/13/2024 Hepatitis B Vaccines (2 of 3 - 19+ 3-dose series) 03/26/2025 02/26/2025 COVID-19 Vaccine ( season) 2025 08/27/2023, 02/26/2023, 02/26/2023, Additional history exists Influenza Vaccine (#1) 2025 , 07/02/2022, 06/17/2021, Additional history exists Cervical Cancer Screening: Pap Smear 03/08/2026 03/08/2023 DTaP,Tdap,and Td Vaccines (3 - Td or Tdap) 06/27/2029 06/27/2019, 06/22/2018 Cholesterol Screening (Lipid Panel) 02/28/2030 02/28/2025, 07/04/2021 RSV Immunization Adult Patients (1 - 1-dose 75+ series) 2053 HIV Screening Completed 02/28/2025 Hepatitis C Screening [...] this topic Medical Devices Implanted Type Area [place] Device Identifier Shelf Expiration Date Model / Serial / Lot L-Asr Tay Canc [id number] Fee - [id number] - [id number] Implanted:Qty : 1 on 02/01/2025 by Keli Suggs MD at [facility] [employer] Bone N/A: Spine Cervical [employer] 01/27/2026 [id number] / [id number] / [id number] L-Asr Tay Canc [id number] Fd Fee - [id number] - [id number] Implanted:Qty : 1 on 02/01/2025 by Keli Suggs MD at [facility] [employer] Bone N/A: Spine Cervical [employer] 04/22/2026 [id number] / [id number] / [id number] Powder Surgifoam Absorb Gel - Sna - [id number] Implanted:Qty : 1 on 02/01/2025 by Keli Suggs MD at [facility] [employer] N/A: Spine Cervical [employer] 10/26/20261977 / NA / [id number] Plate Spin Cerv Ant Zevo 35mm - Sna - [id number] Implanted:Qty : 1 on 02/01/2025 by Keli Suggs MD at [facility] Spinal Hardware N/A: Spine Cervical [employer] SO[employer] [id number] / NA / NA Screw Cerv [address] 13x3.5mm - Sna - [id number] Implanted:Qty : 6 on 02/01/2025 by Keli Suggs MD at [facility] Spinal Hardware N/A: Spine Cervical [employer] SO[employer] [id number] / NA / NA Insurance MEDICARE [facility] Member Subscriber Plan / Payer (Ef fective 2025-Present) Name:ANDREA MACEDO Relation to Subscriber:Self Name:Andrea Macedo Payer ID:[id number] Group ID:[id number] Type:Not on file Address: [address] [place] [address] Advance Directives * Full Code - Default [...] currently active code status orders. Care Teams Energy Crop Farmer Relationship Specialty Start Date End Date Clare Mo MD [address] [place] [address] PCP - General 01/11/24
--- OUTSIDE RECORDS SUMMARY | 2025-08-21 04:44 | XMS_ITS | Encounter Summary ---
Author Organization [employer] Address [address] [address] Care Team Providers Care Materials And Processes Manager Name Role Phone Clare Mo MD Primary Care Provider +1- [phone] Reason for Visit * Reason Comments Med Refill Encounter Details Date Type Department Care Team ([facility] st Contact Info) Description 04/05/2023 Refill [facility] CHC MED & PEDS [address] [place], [place] [phone] Clare Mo MD 505 [place] [address] Chronic midline low back pain with sciatica, [...] Info) Description 10/08/2025 10:30 AM EST Telemedicine [facility] MED & PEDS [address] [place] [address] Evelina Pimentel RN 505 [place] [address] documented as of this encounter Visit Diagnoses Diagnosis Chronic midline low back pain with sciatica, sciatica laterality unspecified Chronic low back pain, unspecified back pain laterality, unspecified whether sciatica present documented in this encounter Care Teams Materials And Processes Manager Relationship Specialty Start Date End Date Clare Mo MD [address] [place] [address] PCP - General Internal Medicine 03/17/17 documented as of this encounter
--- OUTSIDE RECORDS SUMMARY | 2025-08-21 04:44 | XMS_ITS | Encounter Summary ---
Author Organization [employer] Address 75 [facility] [address], [place] [address] Care Team Providers Care Ironing Machine Operator Name Role Phone Clare Mo MD Primary Care Provider +1- [phone] Reason for Visit * Reason Onset Date Comments Medication Question 01/31/2025 Encounter Details Date Type Department Care Team ([facility] Contact Info) Description 01/31/2025 Telephone [facility] MEDICINE [address] [place] [address] Clare Mo MD [address] [place], [place] [phone] Medication Question Social History Tobacco Use Types [...] * Telephone Encounter - [place] - 01/31/2025 8:05 AM EDT Tc from pt requesting changes for Oxycodone 10-325 MG. States has surgery tomorrow and can't take the medication every 8 hours. [phone] documented in this encounter Plan of Treatment Upcoming Encounters Date Type Department Care Team (Late st Contact Info) Description 10/08/2025 10:30 AM EST Telemedicine [facility] MED & PEDS [address] [place] [address] Evelina Pimentel RN 505 [place] [address] documented as of this encounter Visit Diagnoses Not on filedocumented in this encounter Care Teams Ironing Machine Operator Relationship Specialty Start Date End Date Clare Mo MD [address] [place] [address] PCP - General Internal Medicine 03/17/17 documented as of this encounter
--- OUTSIDE RECORDS SUMMARY | 2025-08-21 04:44 | XMS_ITS | Encounter Summary ---
Author Organization [employer] Address [address] [address] Care Team Providers Care Ferry Boat Captain Name Role Phone Clare Mo MD Primary Care Provider +1- [phone] Reason for Visit * Reason Onset Date Comments Results 04/02/2023 Encounter Details Date Type Department Care Team ([facility] Contact Info) Description 04/02/2023 Telephone [facility] CHC MED & PEDS [address] [place], [place] [phone] Clare Mo MD [address] [place] [address] Results Social History Tobacco Use Types Packs/Day [...] Telemedicine [facility] MED & PEDS [address] [place] [address] Evelina Pimentel RN [address] [place] [address] documented as of this encounter Visit Diagnoses Diagnosis Chronic midline low back pain with sciatica, sciatica laterality unspecified documented in this encounter Care Teams Ferry Boat Captain Relationship Specialty Start Date End Date Clare Mo MD [address] [place] [address] PCP - General Internal Medicine 03/17/17 documented as of this encounter
--- OUTSIDE RECORDS SUMMARY | 2025-08-21 04:44 | XMS_ITS | Encounter Summary ---
Author Organization [employer] Address 75 [place] [address] Care Team Providers Care Parts Expediter Name Role Phone Clare Mo MD Primary Care Provider +1- [phone] Reason for Visit * Reason Onset Date Comments Med Refill 04/02/2023 Medication Question 04/02/2023 Encounter Details Date Type Department Care Team ([facility] Contact Info) Description 04/02/2023 Telephone [facility] CHC MED & PEDS [address] [place] [address] Clare Mo MD [address] [place], [place] [phone] Med Refill; Medication Question Social History Tobacco [...] Upcoming Encounters Date Type Department Care Team ([facility] st Contact Info) Description 10/08/2025 10:30 AM EST Telemedicine [facility] MED & PEDS [address] [place] [address] Evelina Pimentel RN [address] [place] [address] documented as of this encounter Visit Diagnoses Not on filedocumented in this encounter Care Teams Parts Expediter Relationship Specialty Start Date End Date Clare Mo MD [address] [place] [address] PCP - General Internal Medicine 03/17/17 documented as of this encounter
--- OUTSIDE RECORDS SUMMARY | 2025-08-21 04:44 | XMS_ITS | Encounter Summary ---
Author Organization [employer] Address 75 [facility] [address], [place] [address] Care Team Providers Care Development And Housing Director Name Role Phone Clare Mo MD Primary Care Provider +1- [phone] Reason for Visit * Reason Onset Date Comments Med Refill 04/14/2024 Encounter Details Date Type Department Care Team ([facility] st Contact Info) Description 04/14/2024 Telephone [facility] MEDICINE [address] [place] [address] Clare Mo MD 505 [place] [address] Med Refill Social History Tobacco Use Types [...] to: [facility] - [place], [place] - [address] [place] [address] documented in this encounter Plan of Treatment Upcoming Encounters Date Type Department Care Team (Late st Contact Info) Description 10/08/2025 10:30 AM EST Telemedicine [facility] CHC MED & PEDS [address] [place] [address] Evelina Pimentel RN [address] [place] [address] documented as of this encounter Visit Diagnoses Not on filedocumented in this encounter Care Teams Development And Housing Director Relationship Specialty Start Date End Date Clare Mo MD [address] [place] [address] PCP - General Internal Medicine 03/17/17 documented as of this encounter
--- OUTSIDE RECORDS SUMMARY | 2025-08-21 04:44 | XMS_ITS | Encounter Summary ---
Author Organization [employer] Address 75 [facility] [address] [address] Care Team Providers Care Patient Scheduler Name Role Phone Clare Mo MD Primary Care Provider +1- [phone] Reason for Visit * Reason Onset Date Comments error 03/21/2025 Encounter Details Date Type Department Care Team ([facility] Contact Info) Description 03/21/2025 Telephone [facility] MEDICINE [address] [place] [address] Clare Mo MD [address] [place], [place] [phone] error Social History Tobacco Use Types Packs/Day Years [...] Encounters Date Type Department Care Team ([facility] st Contact Info) Description 10/08/2025 10:30 AM EST Telemedicine [facility] CHC MED & PEDS [address] [place] [address] Evelina Pimentel, WILBER 505 [place] [address] documented as of this encounter Visit Diagnoses Not on filedocumented in this encounter Care Teams Patient Scheduler Relationship Specialty Start Date End Date Clare Mo MD [address] [place] [address] PCP - General Internal Medicine 03/17/17 documented as of this encounter
--- OUTSIDE RECORDS SUMMARY | 2025-08-21 04:45 | XMS_ITS | Encounter Summary ---
Author Organization [employer] Address 75 [facility] 7 [place] [address] Care Team Providers Care Knurling Machine Tender Name Role Phone Clare Mo MD Primary Care Provider +1- [phone] Encounter Details Date Type Department Care Team ([facility] Contact Info) Description 11/29/2023 Orders Only [facility] CHC MED & PEDS [address] [place], [place] [phone] Clare Mo MD [address] [place] [address] Chronic low back pain with sciatica, sciatica [...] the past 12 months, has t he [employer], gas, oil or water company threatened to [...] 10/08/2025 10:30 AM EST Telemedicine [facility] CHC MED & PEDS [address] [place] [address] Evelina Pimentel, WILBER 505 [place] [address] documented as of this encounter Visit Diagnoses Diagnosis Chronic low back pain with sciatica, sciatica laterality unspecified, unspecified back pain laterality- Primary documented in this encounter Care Teams Knurling Machine Tender Relationship Specialty Start Date End Date Clare Mo MD [address] [place] [address] PCP - General Internal Medicine 03/17/17 documented as of this encounter
--- OUTSIDE RECORDS SUMMARY | 2025-08-21 04:45 | XMS_ITS | Encounter Summary ---
Author Organization [employer] Address [address] [place] [address] Care Team Providers Care Drywall Metal Stud Worker Name Role Phone Clare Mo MD Primary Care Provider +1- [phone] Encounter Details Date Type Department Care Team ([facility] Contact Info) Description 03/03/2023 Abstract [facility] MED & PEDS [address] [place] [address] Kelsea Talley [place] Social History Tobacco Use [...] Encounters Date Type Department Care Team ([facility] Contact Info) Description 10/08/2025 10:30 AM EST Telemedicine [facility] MED & PEDS [address] [place] [address] Evelina Pimentel, WILBER 505 [place] [address] documented as of this encounter Visit Diagnoses Not on filedocumented in this encounter Care Teams Drywall Metal Stud Worker Relationship Specialty Start Date End Date Clare Mo MD [address] [place] [address] PCP - General Internal Medicine 03/17/17 documented as of this encounter
--- OUTSIDE RECORDS SUMMARY | 2025-08-21 04:45 | XMS_ITS | Encounter Summary ---
Author Organization [employer] Address 75 [facility] 7 [place] [address] Care Team Providers Care Reeling Operator Name Role Phone Clare Mo MD Primary Care Provider +1- [phone] Reason for Visit * Reason Comments Med Refill Encounter Details Date Type Department Care Team ([facility] st Contact Info) Description 10/11/2023 Refill [facility] MEDICINE [address] [place] [address] Clare Mo MD [address] [place], [place] [phone] Chronic low back pain, unspecified back pain [...] the past 12 months, has t he [employer] gas, oil or water company threatened to [...] Info) Description 10/08/2025 10:30 AM EST Telemedicine [facility] CHC MED & PEDS 505 [place] [address] Evelina Pimentel, WILBER 505 [place] [address] documented as of this encounter Visit Diagnoses Diagnosis Chronic low back pain, unspecified back pain laterality, unspecified whether sciatica present documented in this encounter Care Teams Reeling Operator Relationship Specialty Start Date End Date Clare Mo MD [address] [place] [address] PCP - General Internal Medicine 03/17/17 documented as of this encounter
--- OUTSIDE RECORDS SUMMARY | 2025-08-21 04:45 | XMS_ITS | Encounter Summary ---
Author Organization [employer] Address [address] [place] [address] Care Team Providers Care Delimber Operator Name Role Phone Clare Mo MD Primary Care Provider +1- [phone] Encounter Details Date Type Department Care Team (Latest Contact Info) Description 08/16/[address] [facility] CONVERSIONS Dental, Provider, DDS Social History [...] 10/08/2025 10:30 AM EST Telemedicine [facility] CHC MED & PEDS [address] [place] [address] Evelina Pimentel, WILBER [address] [place] [address] documented as of this encounter Visit Diagnoses Not on filedocumented in this encounter Care Teams Delimber Operator Relationship Specialty Start Date End Date Clare Mo MD 505 [place] [address] PCP - General Internal Medicine 03/17/17 documented as of this encounter
--- OUTSIDE RECORDS SUMMARY | 2025-08-21 04:45 | XMS_ITS | Encounter Summary ---
Author Organization [employer] Address 75 [facility] [address] [address] Care Team Providers Care Hospital Director Name Role Phone Clare Mo MD Primary Care Provider +1- [phone] Reason for Visit * Reason Onset Date Comments Medication Question 11/29/2023 Encounter Details Date Type Department Care Team ([facility] Contact Info) Description 11/29/2023 Telephone [facility] MEDICINE [address] [place] [address] Clare Mo MD [address] [place], [place] [phone] Medication Question Social History Tobacco Use Types [...] information was provided. Please contact pt at [phone]. documented in this encounter Plan of Treatment Upcoming Encounters Date Type Department Care Team ([facility] st Contact Info) Description 10/08/2025 10:30 AM EST Telemedicine [facility] CHC MED & PEDS [address] [place] [address] Evelina Pimentel, WILBER 505 [place] [address] documented as of this encounter Visit Diagnoses Not on filedocumented in this encounter Care Teams Hospital Director Relationship Specialty Start Date End Date Clare Mo MD [address] [place] [address] PCP - General Internal Medicine 03/17/17 documented as of this encounter
--- OUTSIDE RECORDS SUMMARY | 2025-08-21 04:45 | XMS_ITS | Encounter Summary ---
Author Organization [employer] Address 75 [facility] 7[place], [place] [address] Care Team Providers Care Surgical Clinical Reviewer Name Role Phone Clare Mo MD Primary Care Provider +1- [phone] Reason for Visit * Reason Onset Date Comments Med Refill 07/26/2023 Encounter Details Date Type Department Care Team ([facility] st Contact Info) Description 07/26/[address] [facility] MEDICINE [address] [place] [address] Clare Mo MD [address] [place], [place] [phone] Med Refill Social History Tobacco Use Types [...] Info) Description 10/08/2025 10:30 AM EST Telemedicine [facility] MED & PEDS [address] [place] [address] Evelina Pimentel, WILBER 505 [place] [address] documented as of this encounter Visit Diagnoses Not on filedocumented in this encounter Care Teams Surgical Clinical Reviewer Relationship Specialty Start Date End Date Clare Mo MD 505 [place] [address] PCP - General Internal Medicine 03/17/17 documented as of this encounter
--- OUTSIDE RECORDS SUMMARY | 2025-08-21 04:45 | XMS_ITS | Clinical Summary ---
Author Organization [employer] Address [address] [facility] 7 [place] [address] Care Team Providers Care Creative Services Manager Name Role Phone Clare Mo MD Primary Care Provider [phone] Allergies Active Allergy Reactions Criticality Noted Date Comments Ibuprofen Dermatitis 03/08/2024 Morphine Rash Low 03/08/2024 Medications * This document contains information received from the source organization and may not represent a complete record from that organization. Acetaminophen 500 MG capsule take 2 capsule by oral route every 8 hours as needed 021 Active albuterol (ProAir HFA) 108 (90 Base) MCG/ACT inhaler inhale 2 puff by inhalation route every 4 - 6 hours as needed 021 Active ondansetron (Zofran) 4 MG tablet take 2 tablet by oral route 2 times every day 021 Active Misc. Devices (Rollator Ultra-Light) miscIndications :poor balance To use daily 021 Active Misc. Devices (Cane) misc Use 1 by To Assist with ambulation route 021 Active Elastic Bandages & Supports (Elbow Strap Left/Right) miscIndications :Dx:Tennis Elbow To wear daily 020 Active Heating Pads pads To use daily 021 Active Elastic Bandages & Supports (Knee Brace) misc Knee brace large/xlarge To use daily 022 Active Elastic Bandages & Supports (Lumbar Back Brace/Support Pad) miscIndications :Chronic midline low back pain, unspecified whether sciatica present To wear daily as needed. 1 each 023 Active cholecalciferol (Vitamin D-3) 25 MCG (1000 UT) tabletIndicatio ns:Vitamin D deficiency Take 1 tablet (25 mcg) by mouth in the morning. 60 tablet 11 023 Active Diclofenac Sodium 1 % gel To use on the affected area 3 times a day 100 g 2 023 Active Elastic Bandages & Supports (Wrist Brace Deluxe) miscIndications :Pain in both hands Bilateral hand pain. Please provide a brace that can cover the hands as per pt's request. 2 each 023 Active Elastic Bandages & Supports (Wrist Brace Deluxe) miscIndications :Pain in both hands Please provide a brace that can cover the hands as per pt's request. 2 each 023 Active Rhubarb (Estroven Complete) 4 MG tabletIndicatio ns:Hot flashes 1 tab once a day 30 tablet 3 024 Active gabapentin (Neurontin) 800 MG tabletIndicatio ns:Chronic pain syndrome TAKE ONE TABLET BY MOUTH THREE TIMES DAILY 90 tablet 5 025 Active cyclobenzaprine (Flexeril) 10 MG tablet TAKE ONE TABLET TWICE DAILY 60 tablet 3 025 Active FREESTYLE LITE test stripIndication s:Dizziness Use to test blood sugar 1 times daily 100 each 12 025 2025 Active Lancets miscIndications :Dizziness Use to test blood sugar 1 times daily 100 each 025 Active Alcohol Swabs 70 % padsIndications :Dizziness Use to test blood sugar 1 times daily 100 each 025 Active FREESTYLE LITE test stripIndication s:Dizziness Use to test blood sugar 1 times daily 100 each 12 025 2025 Active Blood Glucose Monitoring Suppl (FreeStyle Sunderland Lite) w/Device kitIndications: Dizziness Use to test blood sugar 1 times daily 1 kit 025 Active Blood Pressure kitIndications: Dizziness To check the BP daily 1 kit 025 Active Misc. Devices (Pulse Oximeter Deluxe) miscIndications :Dizziness To check the O2 sat every 4 hours 1 each Active magnesium gluconate 250 MG tablet Take 250 mg by mouth. Active neomycin-polymy andrew-hydrocortis one (Cortisporin) 3.5-63876-[address] 3 to 4 DROPS IN AFFECTED EAR(S) FOUR TIMES DAILY FOR 10 DAYS Active oxyCODONE (Roxicodone) 5 MG immediate release tablet Take 5 mg by mouth. Active naloxone (Narcan) 4 mg/0.1 mL nasal spray Administer 1 spray (4 mg) into affected nostril(s) if needed for opioid reversal. May repeat every 2-3 minutes if needed, alternating nostrils, until medical assistance becomes available. 2 each Active albuterol (2.5 MG/3ML) 0.083% nebulizer solutionIndicat ions:Mild persistent asthma without complication Take 3 mL (2.5 mg) by nebulization every 4 (four) hours if needed for wheezing. 75 mL 11 025 2025 Active tiZANidine (Zanaflex) 4 MG tabletIndicatio ns:Neck pain Take 1 tablet (4 mg) by mouth every 6 (six) hours if needed for muscle spasms for up to 10 days. 40 tablet Active ALPRAZolam (Xanax) 1 MG tabletIndicatio ns:Anxiety TAKE ONE TABLET BY MOUTH EVERY DAY NEEDED FOR ANXIETY FOR UP TO 15 DAYS 25 tablet 5 8:05 AM EST 025 Active hydrOXYzine pamoate (Vistaril) 50 MG capsuleIndicati ons:Anxiety TAKE ONE OR TWO CAPSULES BY MOUTH AT BEDTIME 30 capsule 5 8:05 AM EST 025 Active pregabalin (Lyrica) 200 MG capsuleIndicati ons:Chronic low back pain with sciatica, sciatica laterality unspecified, unspecified back pain laterality TAKE ONE CAPSULE BY MOUTH TWICE DAILY 60 capsule 5 1:40 PM EST 025 Active oxyCODONE-aceta minophen (Percocet) 10-325 MG tabletIndicatio ns:Foraminal stenosis of cervical region Take 1 tablet by mouth every 8 (eight) hours if needed for severe pain. Do not start before August 17, 2025. 42 tablet 1:40 PM EST Active pregabalin (Lyrica) 200 MG capsuleIndicati ons:Chronic low back pain with sciatica, sciatica laterality unspecified, unspecified back pain laterality TAKE 1 CAPSULE BY MOUTH TWICE A DAY 60 capsule 025 2024 Discontinued ALPRAZolam (Xanax) 1 MG tabletIndicatio ns:Anxiety TAKE ONE TABLET BY MOUTH EVERY DAY NEEDED FOR ANXIETY FOR UP TO 15 DAYS 25 tablet 025 2024 Discontinued hydrOXYzine pamoate (Vistaril) 50 MG capsuleIndicati ons:Anxiety 1-2 tabs at bedtime. 30 capsule 025 2024 Discontinued oxyCODONE-aceta minophen (Percocet) 10-325 MG tabletIndicatio ns:Foraminal stenosis of cervical region Take 1 tablet by mouth every 8 (eight) hours if needed for severe pain for up to 14 days. 42 tablet 025 2024 Discontinued(R eorder (will not trigger notification to Pharmacy)) oxyCODONE-aceta minophen (Percocet) 10-325 MG tabletIndicatio ns:Foraminal stenosis of cervical region Take 1 tablet by mouth every 8 (eight) hours if needed for severe pain for up to 14 days. Do not start before August 03, 2025. 42 tablet 10:27 AM EST 2024 Discontinued Active Problems Problem Noted Date Diagnosed Date Cervical spondylosis 05/02/2025 Facet arthritis, degenerative, lumbar spine 04/14 Mild persistent asthma without complication 04/14 Long-term current use of opiate analgesic 2024 Urge incontinence of urine 04/24/2024 Vague bodily [...] back pain 02/05/2016 Depressed bipolar I disorder ([facility]) 6 Migraine 02/05/2016 Mood disorder 02/05/2016 Panic disorder 02/05/2016 Posttraumatic stress disorder 02/05/2016 Encounters * This document contains information received from the source organization and may not represent a complete record from that organization. Date Type Department Care Team Description 08/15/2025 Refill [facility] [address] [place] [address] Clare Mo MD Foraminal stenosis of cervical region 08/14/2025 Refill [facility] [address] [place] [address] Clare Mo MD Anxiety; Chronic low back pain with sciatica, sciatica laterality unspecified, unspecified back pain laterality 07/30/2025 Refill [facility] [address] [place] [address] Clare Mo MD Foraminal stenosis of cervical region 07/20/2025 Refill [facility] [address] [place] [address] Clare Mo MD Foraminal stenosis of cervical region 07/19/2025 11:00 AM EST Clinical Support [facility] [address] [place] [address] Evelina Pimentel, biology intern low back pain with sciatica, sciatica laterality unspecified, unspecified back pain laterality (Primary Dx) 07/19/2025 Orders Only [facility] [address] [place] [address] Clare Mo MD Anxiety (Primary Dx) 07/19/2025 Telephone [facility] [address] [place] [address] Evelina Pimentel, WILBER 07/19/2025 Travel 07/15/2025 Refill [facility] [address] [place] [address] Clare Mo MD Mild persistent asthma without complication; Chronic low back pain with sciatica, sciatica laterality unspecified, unspecified back pain laterality; Anxiety 07/03/2025 Refill [facility] [address] [place] [phone] Clare Mo MD Foraminal stenosis of cervical region 06/28/2025 Telephone [facility] [address] [place] [address] Clare Mo MD Medication Question 06/28/2025 Telephone [facility] [address] [place] [address] Clare Mo MD Medication Question 06/21/2025 Refill [facility] [address] [place] [phone] Clare Mo MD Foraminal stenosis of cervical region 06/20/2025 Refill [facility] [address] [place] [address] Evelina Pimentel, WILBER Anxiety 06/20/2025 Telephone [facility] [address] [place] [address] Clare Mo MD 06/20/2025 Refill [facility] [address] [place] [address] Clare Mo MD Chronic low back pain with sciatica, sciatica laterality unspecified, unspecified back pain laterality; Neck pain 06/20/2025 Telephone [facility] [address] [place] [address] Clare Mo MD Durable Medical Equipment 06/11/2025 Telephone [facility] [address] [place] [address] Evelina Pimentel RN 06/11/[address] [address] Calre Mo MD Call Back Request 06/08/2025 Refill [facility] [address] [place] [phone] Clare Mo MD Foraminal stenosis of cervical region 06/04/2025 Telephone [facility] [address] [place] [address] Clare Mo MD Durable Medical Equipment 06/01/2025 3:45 PM EDT Office Visit [facility] [address] [place] [address] Clare Mo MD Mild persistent asthma without complication (Primary Dx); Primary osteoarthritis of both ankles 06/01/2025 Travel 05/29/2025 Telephone [facility] [address] [place] [address] Clare Mo MD Durable Medical Equipment; Form request; Care Coordination 05/25/2025 Refill [facility] [address] [place] [phone] Clare Mo MD Foraminal stenosis of cervical region from Last 3 Months Immunizations Immunization Administration Dates Next Due Hep B, adult 02/26/2025 HepB-CpG 04/17/2025 Influenza injectable quadriv alent IIV4 with preservative 06/05/2019,06/22/2018 Influenza injectable quadriv alent preservative free 07/02/2022,06/17/2021 Influenza, Injectable, MDCK, preservative free 05/12/2024 Moderna Covid-19 Vaccine 12+ 08/18/2021,02/12/20 21,01/15/2021 Moderna Covid-19 Vaccine 6+ Bivalent 02/26/2023 TD (adult), 2 Lf tetanus tox oid, preservative free, adsorbed 06/28/2019,06/27/2019 Tdap 06/27/2019,06/22/2018 Social History Tobacco Use Types Packs/Day Years [...] Sign Reading Time Taken Comments Blood Pressure 132/78 06/01/2025 3:44 PM EDT Pulse 76 06/01/2025 3:44 PM EDT Temperature 36.9 C (98.4 F) 06/01/2025 3:44 PM EDT Respiratory Rate 20 06/01/2025 3:44 PM EDT Oxygen Saturation 99% 02/26/2025 2:09 PM EDT Inhaled Oxygen Concentration - - Weight 87.4 kg (192 lb 9.6 oz) 06/01/2025 3:44 P M EDT Height 162.6 cm (5' 4 ) 06/01/2025 3:44 PM EDT Body Mass Index 33.06 06/01/2025 3:44 PM EDT Plan of Treatment Upcoming Encounters Date Type Department Care Team (Late st Contact Info) Description 10/08/2025 10:30 AM EST Telemedicine [facility] [address] [place] [address] Evelina Pimentel, RN [address] [place] [address] Health Maintenance Due Date Last Done Comments CT Colonography 1978 FIT DNA/Cologuard 1978 FIT 1978 FOBT 1980 Sigmoidoscopy 1978 Derm Melanoma Skin Check 01/10/1979 Alcohol/Substance Use Screening 1990 Family Planning (PISQ) 1993 Pneumococcal Vaccine: Pediatrics (0 to 5 Years) and At-Risk Patients (6 to 49) Years (1 of 2 - PCV) 1997 Dental Oral Exam 01/28/2021 07/30/2020 Dental Prophylaxis 02/15/2021 08/16/2020 Dental X-Ray: Bitewings 06/11/2023 06/10/20 22, 09/25/2020, 07/30/2020 Dental X-Ray: Full Mouth 07/31/2023 07/30/2020 Depression Screening 03/08/2025 03/08/2024, 03/08/20 24 COVID-19 Vaccine ( season) 2025 05/12/2024, 08/27/2023, 02/26/2023, Additional history exists Influenza Vaccine (#1) 2025 , 07/02/2022, 06/17/2021, Additional history exists SDOH Screening 06/02/2025 06/02/2024 Hepatitis B Vaccines (3 of 3 - 19+ 3-dose series) 08/28/2025 04/17/2025, 02/26/2025 Disability Screening 01/01/2026 01/01/2025 Mammogram 04/30/2026 04/30/2025, 04/13, 01/10/2022, Additional history exists Tobacco Screening 06/01/2026 06/01/2025 Cervical Cancer Screening 03/08/2028 HPV/Cotest 03/08/2028 10/24/2019 Pap Smear 03/08/2028 03/08/2023, 10/24/2019 Zoster Vaccines (1 of 2) 2028 DTaP/Tdap/Td Vaccines (5 - Td or Tdap) 06/28/2029 06/28/2019, 06/27/2019, 06/27/2019, Additional history exists Lipid Panel 02/28/2030 02/28/2025, 07/04/2021 Colonoscopy 08/31/2034 08/31/2024 Colorectal Cancer Screening 08/31/2034 RSV Patients and Patients Aged 60 years or older (1 - 1-dose 75+ series) 2053 HIV [...] POCT VICTOR MANUEL-14 URINE DRUG SCREEN Routine 07/19/2025 11:19 AM EST Chronic low back pain with sciatica, sciatica laterality unspecified, unspecified back pain laterality BI MAMMOGRAM SCREENING TOMOSYNTHESIS BILATERAL Routine 04/30/2025 1:40 PM EDT Screening mammogram for breast cancer HEPATITIS C AB W/REFL TO HCV RNA, QN, PCR Routine 02/28/2025 12:36 PM EDT Annual physical exam HIV 1/2 ANTIGEN/ANTIBODY, FOURTH GENERATION W/RFL Routine 02/28/2025 12:36 PM EDT Annual physical exam LIPID PANEL, STANDARD Routine 02/28/2025 12:36 PM EDT Annual physical exam HM COLONOSCOPY Routine 08/31/2024 10:14 AM EST PAP SMEAR Routine 03/08/2023 12:18 PM EDT Chronic low back pain with sciatica, sciatica laterality unspecified, unspecified back pain laterality BITEWINGS - 4 RADIOGRAPHIC IMAGES Routine 06/10/2022 12:00 AM EDT PROPHYLAXIS - ADULT Routine 08/16/2020 1 2:00 AM EST INTRAORAL - COMPLETE SERIES OF RADIOGRAPHIC IMAGES Routine 07/30/2020 12:00 AM EST COMPREHENSIVE ORAL EVALUATION - NEW OR ESTABLISHED PATIENT Routine 07/30/2020 12:00 AM EST ZZZ HISTORICAL HPV MRNA E6/E7 Routine 10/24/2019 3:31 PM EST from Last 3 Months or Most Recently Relevant to Health Maintenance Results * (ABNORMAL) POCT VICTOR MANUEL-14 Urine Drug Screen (07/19/2025 11:19 AM EST) THC Positive(A) Negative Cocaine Screen, Urine Negative Negative Opiate Screen, Urine Negative Negative Methamphetamine Screen Urine Negative Negative Amphetamine Screen, Urine Negative Negative Benzodiazepines Screen, Urine Positive(A) Negative Comment:Rx Barbiturate Screen, Urine Negative Negative Methadone Screen, Urine Negative Negative Buprenophine Screen, Urine Negative Negative TCA, Urine Negative Negative MDMA Urine Negative Negative ng/mL Oxycodone Screen, Urine Positive(A) Negative Comment:Rx Phencyclidine (PCP), Urine Negative Negative Propoxyphene, Urine Negative Negative Fentanyl, Urine Negative Negative Urine Urine specimen obtained by clean catch procedure / Unknown 07/19/2025 11:19 AM EST Narrative Evelina Pimentel RN - 07/19/2025 11:19 AM EST . Internal Pass Control Lot# [id number] Exp: 07-13-26 Clare Mo MD POINT OF CARE TEST ENTER/ED IT ORDERABLES Final Result * BI Mammogram Screening Tomosynthesis Bilateral (04/30/2025 1:40 PM EDT) Anatomical Region Laterality Modality Breast Bilateral Mammography 04/30/2025 1:40 PM EDT Narrative 05/02/2025 9:21 AM EDT [facility] [place] [address] Mammography Report Signed Patient: May Macedo MR#: [id number] : 1980 Acct:[id number] Age/Sex: 44 / F ADM Date: 04/30/25 Loc: .MAMMO Attending Dr: Clare Mo MD Ordering Physician: Clare Mo MD Results: 1 Negative Date of Service: 04/30/25 Follow Up: 1 Year From [facility] Mammogram Procedure(s): MM tomosynthesis screening BI Accession Number(s): [id number] cc: Clare Mo MD EXAMINATION: MM SCREENING DIGITAL BREAST TOMOSYNTHESIS, BILATERAL CLINICAL INFORMATION: Screening. Asymptomatic. COMPARISON: Mammography: Comparison is made with available priors TECHNIQUE: Digital breast mammography with tomosynthesis is performed in both the craniocaudal and mediolateral oblique views along with computer-aided detection (CAD). FINDINGS: The breasts are heterogeneously dense, which [...] for their next mammogram. Electronically signed by: Beatrice Rogers DO 05/02/2025 09:18 AM EDT RP Dictated By: Beatrice Rogers DO Signed By: <Electronically signed by Beatrice Rogers DO in OV> 05/02/2518 DD/ 1340 TD/TT: 04/30/25 1350 Qa Test Analyst: Procedure Note Donotuseinterpreter, Image - 05/02/[facility] [address] [place] [address] Mammography Report Signed Patient: May MacedoMR#: [id number] : 1980Acct:[id number] Age/Sex: 44 / FADM Date: 04/30/25 Loc: HO.MAMMO Attending Dr: Clare Mo MD Ordering Physician: Clare Mo MDResults: 1 Negative Date of Service: 04/30/25Follow Up: 1 Year From Orig ina Mammogram Procedure(s): MM tomosynthesis screening BI Accession Number(s): [id number] cc: Clare Mo MD EXAMINATION: MM SCREENING DIGITAL BREAST TOMOSYNTHESIS, BILATERAL CLINICAL INFORMATION: Screening. Asymptomatic. COMPARISON: Mammography: Comparison is made with available priors TECHNIQUE: Digital breast mammography with tomosynthesis is performed in both the craniocaudal and mediolateral oblique views along with computer-aided detection (CAD). FINDINGS: The breasts are heterogeneously dense, which [...] for their next mammogram. Electronically signed by: Beatrice Rogers DO 05/02/2025 09:18 AM EDT RP Dictated By: Beatrice Rogers DO Signed By: <Electronically signed by Beatrice Rogers DO in OV> 05/02/25 0918 DD/ 1340 TD/TT: 04/30/25 1350 Qa Test Analyst: us Clare Mo MD IMG BI PROCEDURES Final Res ult * Hepatitis C Antibody with Reflex to HCV, RNA, Quantitative, Real-Time PCR (02/28/2025 12:36 PM EDT) Hepatitis C Antibody Nonreactive Nonreactive [facility] Comment:Antibodies to HCV no t detected; does not exclude early acuteHCV infection. Blood Venous blood specimen / Unknown 02/28/2025 12:36 PM EDT 02/28/2025 2:06 PM EDT us Clare Mo MD LAB BLOOD ORDERABLES Final Result [facility] [address] [place] [phone] * HIV-1/2 Antigen and Antibodies, Fourth Generation, with Reflexes (02/28/2025 12:36 PM EDT) HIV AB/AG Nonreactive Nonreactive [facility] Comment:HIV-1 p24 Ag and/or HIV-1/HIV-2 Ab not detected.A test result that is nonreactive does not exclude thepossibility of exposure to or infection with HIV-1 and/orHIV-2. Nonreactive results in this assay for individualswith prior exposure to HIV-1 and/or HIV-2 may be due toantigen and antibody levels that are below the limit ofdetection of this assay.The [employer] HIV Ag/Ab Combo assay result andsupplemental assay results should be interpreted inconjunction with the patient's clinical presentation,history and other laboratory results. If the results areinconsistent with clinical evidence, additional testing issuggested to confirm the result. Blood Venous blood specimen / Unknown 02/28/2025 12:36 PM EDT 02/28/2025 2:06 PM EDT us Clare Mo MD LAB BLOOD ORDERABLES Final Result Performing Organization Address [facility] Co de Phone Number [facility] [address] [place] [phone] * Lipid Panel, Standard (02/28/2025 12:36 PM EDT) Triglycerides 111 <150 mg/dL [facility] Comment:Desirable Triglyceri de: less than 150 mg/dLBorderline High Triglyceride 150-199 mg/dLHigh Triglyceride: 200-499 mg/dLVery High Triglyceride: greater than or equal to 5OO mg/dL Cholesterol 181 <200 mg/dL [facility] Comment:Desirable Cholestero l: less than 200 mg/dLBorderline High Cholesterol: 200-239 mg/dLHigh Cholesterol: greater than 239 mg/dL LDL Cholesterol Calculated 95 <100 mg/dL [facility] Comment:Desirable LDL: less than 100 mg/dLNear Optimal/Above Optimal LDL: 110- 129 mg/dLBorderline High LDL: 130-159 mg/dLHigh LDL: 160-189 mg/dLVery High LDL: greater than or equal to 190 mg/dL HDL Cholesterol 64 >40 mg/dL [facility] Comment:Desirable HDL: great er than 40 mg/dL Note: This HDL assay may give artificially low results in patients with liver disease. Blood Venous blood specimen / Unknown 02/28/2025 12:36 PM EDT 02/28/2025 2:06 PM EDT us Clare Mo MD LAB BLOOD ORDERABLES Final Result Performing Organization Address [facility]/ZIP Co de Phone Number [facility] [address] [place] [phone] * Hm Colonoscopy (08/31/2024 10:14 AM EST) us Historical Provider HEALTH MAINTENANCE Final Result * Pap Smear (03/08/2023 12:18 PM EDT) 03/08/2023 12:1 8 PM EDT 03/10/2023 8:55 AM EDT [facility] - 03/27/2023 3:23 PM EDT ----- ------- Name: May Beckwith Age/Sex: 42/F : 1980 Unit#: [id number] Attend Dr: Jeff William MD Re03/08/23 Status: [facility] Location: [facility] Disch: ----- ------- SPEC : [id number] RECD: 03/10/23 STATUS: PO LYNCH NUM: [id number] BRANDON: 03/08/23-1218 [facility] DR: Jeff William MD ENTERED: 03/10/23 SP TYPE: Pap Smr [facility] DR: Clare Mo MD ORDERED: Pap Smear Interpretation Satisfactory for evaluation. No endocervical cells seen. Negative for intraepithelial lesion or malignancy. HPV mRNA E6/E7: NOT DETECTED This assay detects E6/E7 viral messenger RNA (mRNA) from 14 high-risk HPV types (16, 18, 31, 33, 35, 39, 45, 51, 52, 56, 58, 59, 66, 68) HPV testing performed by [facility], [place], [place]. See reference laboratory portion of the EMR for entire report. Clinical Information LMP: 03/05/23 Previous PAP test: Unknown date/findings Material Received ThinPrep-Cervical Copies To: Clare Mo MD [address] [place] [phone] Jeff William MD [address] [place] [address] [place] [address] ----- ------- Signed (signature on file) Alondra A Tyrell 03/27/23 1523 ----- ------- END OF REPORT [facility] External Provider LAB CYT OLOGY ORDERABLES Final Result [facility] [address] [place] [phone] * HPV mRNA E6/E7 (10/24/2019 3:31 PM EST) HPV mRNA E6/E7 Not Detected NOT DETECTED [facility] Comment: This test was performed using the APTIMA(R) HPV Assay ([employer] This assay detects E6/E7 viral messenger RNA (mRNA) from 14 high-risk HPV types (16,18,31,33,35,39,45,51, 52,56,58,59,66,68). For additional information please refer to: http://education.SurgiQuest.Therma-Wave/faq/GOE939z8 (This link is being provided for informational/ educational purposes only.) The analytical performance characteristics of this assay have been determined by [employer] [place], [place]. The modifications have not been cleared or approved by the FDA. This assay has been validated pursuant to the CLIA regulations and is used for clinical purposes. Test Performed by [facility], [facility], [address] [place] [address] Jalen Hart M.D., Ph.D., Director of Laboratories , CLIA [id number] Please note: Effective 05/25/2016, HPV testing will be performed using [employer] APTIMA test which targets mRNA. Detecting mRNA instead of DNA, as in older methods, offers significant improvements in specificity. 10/24/2019 3:31 PM EST us Camille Ash CNM HISTORICAL/NON ORDERABLE LABS Final Result [facility] Anywhere [address] from Last 3 Months or Most Recently Relevant to Health Maintenance Insurance [facility] STANDARD [facility] ONE [facility]ARE < [address] [place] [id number] DENTAL-[facility] MEDICAID STAND ADULT [place] [id number] [place] [id number] [place] [id number] Care Teams Creative Services Manager Relationship Specialty Start Date End Date Clare Mo MD [address] [place] [address] [place] [phone] PCP - General Internal Medicine 03/17/17
--- OUTSIDE RECORDS SUMMARY | 2025-08-21 04:45 | XMS_ITS | Encounter Summary ---
Author Organization [employer] Address [address] [facility] [address], [place] [address] Care Team Providers Care Deputy Chief Counsel Name Role Phone Clare Mo MD Primary Care Provider +1- [phone] Reason for Visit * Reason Onset Date Comments Call Back Request 11/30/2023 Encounter Details Date Type Department Care Team ([facility] Contact Info) Description 11/30/2023 Telephone [facility] MEDICINE [address] [place] [address] Clare Mo MD 505 [place] [address] Call Back Request Social History Tobacco Use [...] Upcoming Encounters Date Type Department Care Team ([facility] st Contact Info) Description 10/08/2025 10:30 AM EST Telemedicine [facility] MED & PEDS 505 [place] [address] Evelina Pimentel RN 505 [place] [address] documented as of this encounter Visit Diagnoses Not on filedocumented in this encounter Care Teams Deputy Chief Counsel Relationship Specialty Start Date End Date Clare Mo MD 505 [place] [address] PCP - General Internal Medicine 03/17/17 documented as of this encounter
--- OUTSIDE RECORDS SUMMARY | 2025-08-21 04:45 | XMS_ITS | Encounter Summary ---
Author Organization [employer] Address [address] [place] [address] Care Team Providers Care Food And Beverage Outlets Manager Name Role Phone Clare Mo MD Primary Care Provider +1- [phone] Encounter Details Date Type Department Care Team ([facility] Contact Info) Description 05/14/2023 Orders Only [facility] MED & PEDS [address] [place], [place] [phone] Clare Mo MD 505 [place], [place] [phone] Pain in both hands (Primary Dx); Chronic [...] Upcoming Encounters Date Type Department Care Team ([facility] Contact Info) Description 10/08/2025 10:30 AM EST Telemedicine [facility] MED & PEDS [address] [place], [place] [phone] Evelina Pimentel RN 505 [place], [place] [phone] documented as of this encounter Visit Diagnoses Diagnosis Pain in both hands- Primary Chronic migraine without aura without status migrainosus, not intractable Anxiety Anxiety state, unspecified Chronic midline low back pain with sciatica, sciatica laterality unspecified documented in this encounter Care Teams Food And Beverage Outlets Manager Relationship Specialty Start Date End Date Clare Mo MD [address] [place] [address] PCP - General Internal Medicine 03/17/17 documented as of this encounter
--- OUTSIDE RECORDS SUMMARY | 2025-08-21 04:45 | XMS_ITS ---
Author Organization [employer] Address [address] [place] [address] [place] [address] Care Team Providers Care Hook And Eye Attacher Name Role Phone Clare Mo MD Primary Care Provider MICROFICHE CAMERA OPERATOR Status:Enrolled (Active) Start date:01/06/2023 Enrollment date:01/06/2023 Case Team Name Relationship Phone Evelina Pimentel RN(Responsible Staff) Registered Nurse Continued Care and Services Coordination
--- OUTSIDE RECORDS SUMMARY | 2025-08-21 04:45 | XMS_ITS | Encounter Summary ---
Author Organization [employer] Address [address] [facility] 7 [place] [address] Care Team Providers Care Cement Paver Name Role Phone Clare Mo MD Primary Care Provider +1- [phone] Encounter Details Date Type Department Care Team ([facility] Contact Info) Description 05/02/2025 Orders Only [facility] MED & PEDS 505 [place], [place] [phone] Clare Mo MD 505 [place] [address] Cervical spondylosis (Primary Dx); Facet arthritis, degenerative, lumbar spine; Mild intermittent asthma without complication Social History Tobacco Use Types Packs/Day Years [...] Description 10/08/2025 10:30 AM EST Telemedicine [facility] MED & PEDS 505 [place] [address] Evelina Pimentel, WILBER 505 [place] [address] documented as of this encounter Visit Diagnoses Diagnosis Cervical spondylosis- Primary Cervical spondylosis without myelopathy Facet arthritis, degenerative, lumbar spine Mild intermittent asthma without complication documented in this encounter Care Teams Cement Paver Relationship Specialty Start Date End Date Clare Mo MD 505 [place] [address] PCP - General Internal Medicine 03/17/17 documented as of this encounter
--- OUTSIDE RECORDS SUMMARY | 2025-08-21 04:45 | XMS_ITS | Encounter Summary ---
Author Organization [employer] Address [address] [place] [address] Care Team Providers Care Commodity Supervisor Name Role Phone Clare Mo MD Primary Care Provider +1- [phone] Encounter Details Date Type Department Care Team ([facility] Contact Info) Description 02/12/2023 Orders Only [facility] MED & PEDS [address] [place], [place] [phone] Clare Mo MD 505 [place] [address] Chronic low back pain with sciatica, sciatica [...] Upcoming Encounters Date Type Department Care Team ([facility] Contact Info) Description 10/08/2025 10:30 AM EST Telemedicine [facility] MED & PEDS [address] [place], [place] [phone] Evelina Pimentel RN 505 [place] [address] documented as of this encounter Procedures Procedure Name Priority Date/Time Associated Diagnosis Comments PAP SMEAR Routine 03/08/2023 12:18 PM EDT Chronic low back pain with sciatica, sciatica laterality unspecified, unspecified back pain laterality documented in this encounter Results * Pap Smear (03/08/2023 12:18 PM EDT) 03/08/2023 12:1 8 PM EDT 03/10/2023 8:55 AM EDT [facility] - 03/27/2023 3:23 PM EDT ----- ------- Name: May Beckwith Age/Sex: 42/F : 1980 Unit#: [id number] Attend Dr: Jeff William MD Re03/08/23 Status: DEP REF Location: HO.LNP Disch: ----- ------- SPEC : [id number] RECD: 03/10/23 STATUS: PO LYNCH NUM: [id number] BRANDON: 03/08/23-[address]: Jeff William MD ENTERED: 03/10/2381 SP TYPE: Pap Smr OTHR DR: Clare Mo MD ORDERED: Pap Smear Interpretation Satisfactory for evaluation. No endocervical cells seen. Negative for intraepithelial lesion or malignancy. HPV mRNA E6/E7: NOT DETECTED This assay detects E6/E7 viral messenger RNA (mRNA) from 14 high-risk HPV types (16, 18, 31, 33, 35, 39, 45, 51, 52, 56, 58, 59, 66, 68) HPV testing performed by [facility], [place], [place]. See reference laboratory portion of the EMR for entire report. Clinical Information LMP: 03/05/23 Previous PAP test: Unknown date/findings Material Received ThinPrep-Cervical Copies To: Clare Mo MD [address] [place] [phone] Jeff William MD [address] [place] [address] Dr. Matthews [address] [place] [phone] ----- ------- Signed (signature on file) Alondra Flores Tyrell 03/27/23 1523 ----- ------- END OF REPORT [facility] External Provider LAB CYT NATALYA ORDERABLES Final Result [facility] [address] [place] [address] [phone] documented in this encounter Visit Diagnoses Diagnosis Chronic low back pain with sciatica, sciatica laterality unspecified, unspecified back pain laterality documented in this encounter Care Teams Commodity Supervisor Relationship Specialty Start Date End Date Clare Mo MD [address] [place] [address] PCP - General Internal Medicine 03/17/17 documented as of this encounter
--- OUTSIDE RECORDS SUMMARY | 2025-08-21 04:45 | XMS_ITS | Encounter Summary ---
Author Organization [employer] Address [address] [place] [address] Care Team Providers Care Teacher Of The Hearing Impaired Name Role Phone Clare Mo MD Primary Care Provider +1- [phone] Reason for Visit * Reason Comments Med Refill Encounter Details Date Type Department Care Team ([facility] Contact Info) Description 02/11/2023 Refill [facility] MED & PEDS [address] [place] [address] Clare Mo MD 505 [place] [address] Chronic low back pain with sciatica, sciatica [...] Upcoming Encounters Date Type Department Care Team ([facility] Contact Info) Description 10/08/2025 10:30 AM EST Telemedicine [facility] MED & PEDS 505 [place] [address] Evelina Pimentel WILBER 505 [place] [address] documented as of this encounter Visit Diagnoses Diagnosis Chronic low back pain with sciatica, sciatica laterality unspecified, unspecified back pain laterality documented in this encounter Care Teams Teacher Of The Hearing Impaired Relationship Specialty Start Date End Date Clare Mo MD [address] [place] [address] PCP - General Internal Medicine 03/17/17 documented as of this encounter
--- OUTSIDE RECORDS SUMMARY | 2025-08-21 04:45 | XMS_ITS | Encounter Summary ---
Author Organization [employer] Address 75 [facility] 7[place] [address] Care Team Providers Care Automobile Radio Repairer Name Role Phone Clare Mo MD Primary Care Provider +1- [phone] Reason for Visit * Reason Onset Date Comments Nurse Triage 04/03/2025 Encounter Details Date Type Department Care Team ([facility] Contact Info) Description 04/03/2025 Telephone [facility] MEDICINE [address] [place] [address] Clare Mo MD 505 [place], [place] [phone] Nurse Triage Social History Tobacco Use Types [...] encounter Miscellaneous Notes * Telephone Encounter - Betsy Brice RN - 04/03/2025 10:53 AM EDT Called pt. She states that she has been having choking episodes when she eats. Pt. Concerned about the surgery that she had back in January 2025 on her neck C4-5, C5-6 ACDF from Neurosurgeon is prohibiting her from being able to swallow properly. Pt. States she cannot even swallow pills with out choking from the device that was inserted to keep her neck straight. Pt. Has appt. On 04/06/25 with Neurosurgeon and she is going to request for discectomy done by Dr. Perez to be reversed. Advised pt. To call office after her follow up appt. To inform PCP of next steps. Pt. In agreement. Will send this note to PCP as an FYI. Pt. Will be returning from [place] tomorrow. * Telephone Encounter - Cristobal Rodriguez - 04/03/2025 10:50 AM EDT Symptoms: Fall, Sore Throat, Hip Pain - Not From Injury, Headache Outcome: Schedule an urgent appointment (within 1 hour) or talk to a nurse or provider soon Reason: Severe pain now Please contact pt at [phone]. documented in this encounter Plan of Treatment Upcoming Encounters Date Type Department Care Team (Late st Contact Info) Description 10/08/2025 10:30 AM EST Telemedicine [facility] MED & PEDS [address] [place] [address] Evelina Pimentel, RN 505 [place], [place] [phone] documented as of this encounter Visit Diagnoses Not on filedocumented in this encounter Care Teams Automobile Radio Repairer Relationship Specialty Start Date End Date Clare Mo MD 505 [place] [address] PCP - General Internal Medicine 03/17/17 documented as of this encounter
--- OUTSIDE RECORDS SUMMARY | 2025-08-21 04:45 | XMS_ITS | Encounter Summary ---
Author Organization [employer] Address [address] [place] [address] Care Team Providers Care Catering Attendant Name Role Phone Clare Mo MD Primary Care Provider +1- [phone] Encounter Details Date Type Department Care Team ([facility] Contact Info) Description 03/03/2023 Abstract [facility] MED & PEDS [address] [place] [address] Kelsea Talley MA Social History Tobacco Use [...] Upcoming Encounters Date Type Department Care Team ([facility] Contact Info) Description 10/08/2025 10:30 AM EST Telemedicine [facility] MED & PEDS [address] [place] [address] Evelina Pimentel, WLIBER 505 [place] [address] documented as of this encounter Visit Diagnoses Not on filedocumented in this encounter Care Teams Catering Attendant Relationship Specialty Start Date End Date Clare Mo MD [address] [place] [address] PCP - General Internal Medicine 03/17/17 documented as of this encounter
--- OUTSIDE RECORDS SUMMARY | 2025-08-21 04:45 | XMS_ITS | Encounter Summary ---
Author Organization [employer] Address [address] [facility] 7[place], [place] [address] Care Team Providers Care Fiscal Clerk Name Role Phone Clare Mo MD Primary Care Provider +1- [phone] Reason for Visit * Reason Onset Date Comments Med Refill 05/29/2024 Encounter Details Date Type Department Care Team ([facility] st Contact Info) Description 05/29/2024 Telephone [facility] MEDICINE [address] [place] [address] Clare Mo MD 505 [place], [place] [phone] Med Refill Social History Tobacco Use Types [...] 1 MG tablet To be sent to: [facility] - [place], [place] - [address] [place] [address] documented in this encounter Plan of Treatment Upcoming Encounters Date Type Department Care Team (Late st Contact Info) Description 10/08/2025 10:30 AM EST Telemedicine [facility] MED & PEDS 505 [place] [address] Evelina Pimentel, WILBER 505 [place] [address] documented as of this encounter Visit Diagnoses Not on filedocumented in this encounter Care Teams Fiscal Clerk Relationship Specialty Start Date End Date Clare Mo MD 505 [place] [address] PCP - General Internal Medicine 03/17/17 documented as of this encounter
--- OUTSIDE RECORDS SUMMARY | 2025-08-21 04:45 | XMS_ITS | Encounter Summary ---
Author Organization [employer] Address [address] [facility] 7t [place] [address] Care Team Providers Care Power Lineworker Name Role Phone Clare Mo MD Primary Care Provider +1- [phone] Encounter Details Date Type Department Care Team ([facility] Contact Info) Description 06/20/2024 Orders Only [facility] [address] [place] [address] Clare Mo MD 505 [place] [address] Chronic low back pain with sciatica, sciatica [...] [facility] MED & PEDS [address] [place] [address] Evelina Pimentel, WILBER 505 [place] [address] documented as of this encounter Visit Diagnoses Diagnosis Chronic low back pain with sciatica, sciatica laterality unspecified, unspecified back pain laterality Anxiety Anxiety state, unspecified documented in this encounter Care Teams Power Lineworker Relationship Specialty Start Date End Date Clare Mo MD [address] [place] [address] PCP - General Internal Medicine 03/17/17 documented as of this encounter
--- OUTSIDE RECORDS SUMMARY | 2025-08-21 04:45 | XMS_ITS | Encounter Summary ---
Author Organization [employer] Address [address] [address] Care Team Providers Care Well Services Operator Name Role Phone Clare Mo MD Primary Care Provider +1- [phone] Reason for Visit * Reason Onset Date Comments call back 02/12/2023 Encounter Details Date Type Department Care Team ([facility] Contact Info) Description 02/12/[address] [facility] MEDICINE [address] [place] [address] Clare Mo MD 505 [place] [address] call back Social History Tobacco Use Types [...] PCP cancelled script. Please contact pt at [phone] documented in this encounter Plan of Treatment Upcoming Encounters Date Type Department Care Team ([facility] st Contact Info) Description 10/08/2025 10:30 AM EST Telemedicine [facility] MED & PEDS 505 [place] [address] Evelina Pimentel, WILBER 505 [place] [address] documented as of this encounter Visit Diagnoses Not on filedocumented in this encounter Care Teams Well Services Operator Relationship Specialty Start Date End Date Clare Mo MD [address] [place] [address] PCP - General Internal Medicine 03/17/17 documented as of this encounter
--- OUTSIDE RECORDS SUMMARY | 2025-08-21 04:45 | XMS_ITS | Encounter Summary ---
Author Organization [employer] Address [address] [place] [address] Care Team Providers Care Test Designer Name Role Phone Clare Mo MD Primary Care Provider +1- [phone] Reason for Visit * Reason Comments Med Refill Encounter Details Date Type Department Care Team ([facility] Contact Info) Description 02/24/2023 Refill [facility] MED & PEDS [address] [place] [address] Clare Mo MD [address] [place] [address] Anxiety; Chronic low back pain with sciatica, [...] Upcoming Encounters Date Type Department Care Team ([facility] Contact Info) Description 10/08/2025 10:30 AM EST Telemedicine [facility] MED & PEDS [address] [place] [address] Evelina Pimentel, WILBER 505 [place] [address] documented as of this encounter Visit Diagnoses Diagnosis Anxiety Anxiety state, unspecified Chronic low back pain with sciatica, sciatica laterality unspecified, unspecified back pain laterality documented in this encounter Care Teams Test Designer Relationship Specialty Start Date End Date Clare Mo MD [address] [place] [address] PCP - General Internal Medicine 03/17/17 documented as of this encounter
--- OUTSIDE RECORDS SUMMARY | 2025-08-21 04:45 | XMS_ITS | Encounter Summary ---
Author Organization [employer] Address [address] [facility] [place] [address] Care Team Providers Care Billposting Supervisor Name Role Phone Clare Mo MD Primary Care Provider +1- [phone] Reason for Visit * Reason Onset Date [...] Encounter Details Date Type Department Care Team ([facility] st Contact Info) Description 09/22/2022 Telephone [facility] ADULT DENTAL [address] [place] [address] Shukri, Seema [address] [place], [place] [phone] treatment (Patient called in looking to have filling in front teeth done. Patient came in 05/2022 and was told she needed a cleaning and exam for diagnosis. She was only interested in the filling. Amanda notes states that patient left the office [...] Description 10/08/2025 10:30 AM EST Telemedicine [facility] MED & PEDS [address] [place] [address] Evelina Pimentel, WILBER 505 [place] [address] documented as of this encounter Visit Diagnoses Not on filedocumented in this encounter Care Teams Billposting Supervisor Relationship Specialty Start Date End Date Clare Mo MD [address] [place] [address] PCP - General Internal Medicine 03/17/17 documented as of this encounter
--- NOTE | 2025-08-21 05:43 | ED_ITS ---
HPI - Fall General Chief Complaint: Fall Stated Complaint: back pain Time Seen by Provider: 08/21/25 04:27 Source: patient and family Mode of arrival: ambulatory Limitations: no limitations History of Present Illness ED Provider: Dr. Daniela Ambrose HPI Narrative: 45-year-old female with a history of chronic neck and back pain who presents after a fall yesterday. She was sitting on a bench at a park with her son when she ?fell backwards.? The son witnessed the event and reports the patient ?shut down for a bit,? was helped up, and returned home, able to walk on her own two feet. The patient does not recall the fall and is unsure if she lost consciousness; son thinks she ?might have fainted.? It is unclear if she hit her head or lost consciousness during the fall. She notes pain across the lower back, mostly on the left, radiating down the leg. She also complains of her usual chronic neck pain. She reports a prior fall at [facility] that led to an ED visit at [facility] on 08/15/25. Denies associated numbness/tingling/weakness of the extremities. No recent illness reported. She is currently taking oxycodone (up to three times daily as needed), gabapentin, and Lyrica; last doses were taken around 10:00 today. She denies tobacco use and denies a history of asthma, though wheezing was noted on exam. She uses Dr. Suggs for pain management but has not yet informed that provider about recent falls. No further information able to be obtained from patient at this time. She is extremely uncomfortable, writhing around on the stretcher in pain. Related Data Home Medications ?Medication ?Instructions ?Recorded ?Confirmed alprazolam 1 mg tablet 1 mg PO DAILY PRN Anxiety 10/09/24 fluticasone propionate 50 spray intranasal 03/08/23 mcg/actuation nasal spray,suspension cyclobenzaprine 10 mg tablet 20 mg PO TID PRN muscle s pasm 04/11/24 10/09/24 gabapentin 800 mg tablet 800 mg PO TID 04/26/2410/09 oxycodone-acetaminophen 10 mg-325 1 tab PO QID PRN Nader n 04/26/24 10/09/24 mg tablet magnesium 250 mg tablet 250 mg PO DAILY 10/09/24 multivitamin 1 tab PO DAILY 10/09/2409/14 Previous Rx's ?Medication ?Instructions ?Recorded celecoxib 200 mg capsule (Celebrex) 200 mg PO BID 30 d ays #60 caps 10/09/24 oxycodone 5 mg tablet 5 mg PO Q8H PRN pain #7 tabs 03/22/25 Allergies Allergy/AdvReac Type Severity Reaction Status Date / Time morphine AdvReac Itching, Verified 08/21/25 04:09 rash Review of Systems Review of Systems: as per HPI, full review of systems performed and negative but for the above mentioned pertinent positives and negatives. [facility] Past Medical History Medical History Pinched vertebral nerve Cervical spondylarthritis Spondylolisthesis, cervical region Migraine NEC/not intrcbl Mood disorder Bipolar 1 disorder PTSD (post-traumatic stress disorder) Chronic low back pain without sciatica Panic disorder Neural foraminal stenosis of cervical spine Surgical History Hx of tubal ligation Hx of cholecystectomy S/P appendectomy Social History Social History Household Members: Significant Other Housing: Apartment Alcohol intake: current Alcohol intake frequency: a few times a week Alcohol type: beer Patient Tobacco Use Status: Former Tobacco user Tobacco use type: Cigarette Smoked in Last 30 Days: No Use of substances other than those prescribed or required for medical reasons: No Advance Directives: No Advance Directives Information Provided: Yes Patient : No Current occupational status: disabled Current occupation: rt handed Sexual orientation: Straight/Heterosexual Gender identity: Female Physical Exam Exam: Exam: GENERAL: Uncomfortable-Appearing, agitated, writhing around on the stretcher and pain. SKIN: Normal skin color for ethnicity, warm, dry, intact, no rashes noted. HEENT:? Normocephalic, atraumatic, no stridor, airway patent, no raccoon's eyes, no Dawson sign, dentition intact, EOMI. NECK: Soft, supple, full ROM, no step-offs, no deformities, no lymphadenopathy, diffusely tender to palpation with even light touch, no evidence of trauma. CHEST: Heart regular rate and rhythm, no murmurs, symmetric chest rise and fall, no crepitus. PULMONARY: Clear to auscultation bilaterally, no labored breathing, no wheezes/rhales/rhonchi. ABDOMINAL: Soft, nondistended, nontender, positive bowel sounds in all quadrants. : Deferred. MUSCULOSKELETAL: Normal tone, full range of motion, no deformities, no contusions, hypertonicity of the bilateral trapezius musculature, lumbar spine tenderness to palpation throughout, no step-offs, neurovascularly intact distally. NEURO: Alert and oriented x3, CN II through XII intact, equal strength and sensation bilateral upper and lower extremities, no focal neurologic deficits.? PSYCHIATRIC: Anxious affect, fluid speech, poor eye contact, agitated Vital Signs: Vital Signs: Last Vital Signs Temp 98.2 F 08/21/25 07:39 Pulse 70 08/21/25 07:39 Resp 18 08/21/25 07:39 BP 119/53 L 08/21/25 07:39 Pulse Ox 99 08/21/25 07:39 O2 Del Method Room Air 08/21/25 07:39 BMI result Body Mass Index 28.7 Medications Administered Discontinued Medications Generic Name Dose Route Start Last Admin Trade Name Freq PRN Reason Stop Dose Admin Diphenhydramine HCl 50 mg 08/21/25 05:57 08/21/25 06:20 Diphenhydramine Hcl 50 Mg/Ml Vial IM 08/21/25 05:58 50 mg ONCE ONE Administration Haloperidol Lactate 5 mg 08/21/25 05:57 08/21/25 06:19 Haloperidol Lactate 5 Mg/Ml Vial IM 08/21/25 05:58 5 mg STAT STA Administration Hydromorphone HCl 1 mg 08/21/25 05:57 08/21/25 06:19 Hydromorphone Hcl 1 Mg/Ml Syringe IM 08/21/25 05:58 1 mg ONCE ONE Administration Protocol Medical Decision Making Medical Decision Making MDM Narrative: 45-year-old female with chronic pain syndrome presenting with acute low back pain after fall, chronic neck pain, and history of recurrent falls/possible syncope. Problem #1: Acute low back pain after fall Assessment: Lumbar pain after backward fall yesterday; tender across lower back without radiation to legs. Plan: * Pain control with medications as clinically appropriate. * Evaluate for traumatic injury as indicated (imaging pending). * Activity as tolerated with assistance. Problem #2: Chronic neck pain Assessment: Baseline chronic cervical pain, currently flared. Plan: * Continue home pain regimen (oxycodone, gabapentin, Lyrica) unless contraindicated. * Consider discussion with pain specialist/neurosurgeon, Dr. Suggs regarding recent falls. Problem #3: Recurrent falls / possible syncope Assessment: Two recent witnessed falls; unclear etiology, possible dizziness/medication effect. Plan: * Review medication regimen for possible contribution to dizziness and falls. Patient received IM medications including Haldol, Benadryl and Dilaudid for pain. Upon re-evaluation, she is completely calm, cooperative, able to participate in a neurologic exam. She is completely neurologically intact, ambulatory with a steady gait, full active range of motion of the neck and lumbar spine. She no longer has midline tenderness and is able to tell me that she has an appointment with Dr. Saenz next week. Reports that she is having imaging performed (both x-rays and MRIs) prior to this appointment. Given her normal neurologic exam, completely resolved pain and overall improved clinical picture as well as the fact that the details of this fall are incomplete and she isn't even sure if she did fall, holding off on further imaging at this time. She has absolutely no sign of trauma and I feel that she does not need further imaging at this time. I did have an extensive discussion with her and her regarding importance of follow up as well as strict return precautions. She has pain control at home. We discussed importance of avoiding mixing her narcotic pain medications including Klonopin, gabapentin and oxycodone as the combination of these drugs is likely contributing to her being unsteady on her feet. Using shared decision making, plan for discharge home to follow-up with specialist.? Patient understands and agrees with plan for discharge.? Discharged home in stable condition. Differential Diagnosis Differential Diagnoses: The differential diagnosis associated with the presentation includes (as above) Admission/Observation Consideration of admission/observation: Escalation of care including admission/observation considered Independent Historian Clinical information obtained from an independent historian. History obtained from or confirmed by: Spouse External Record Review External record reviewed: Inpatient record and Outpatient record Prescription Management I considered prescription management with: Pain Medication Chronic Conditions Patient?s care impacted by: Other (chronic neck pain, s/p laminectomy) Social Determinants Patient?s care significantly limited by Social Determinants of Health including: Other Social Determinant of Health Discharge Plan Discharge Clinical Impression: Ground-level fall, Chronic low back pain, Chronic neck pain with normal neurological examination Patient Disposition: Home, Self-Care Instructions: Narcotic Safety (ED), Chronic Neck Pain (DC) Additional Instructions: Keep your appointment with your neurosurgeon, Dr. Suggs as scheduled. Return to the emergency department with any new or worsening symptoms including: Worsening back pain despite your home medications, inability to urinate or loss of bowel or bladder control, weakness in your arms or legs or any further episodes of passing out. Call 911 with any medical emergency. Be careful taking all of your medications at once as many of them can cause drowsiness and can make you unsteady. If you have to take everything for severe pain, try to lay down and rest. Prescriptions: No Action oxycodone 5 mg tablet 5 mg PO Q8H PRN (Reason: pain) Qty: 7 0RF Rx Instructions: Partial Fill upon patient request. cyclobenzaprine 10 mg tablet 20 mg PO TID PRN (Reason: muscle spasm) magnesium 250 mg tablet 250 mg PO DAILY multivitamin Tablet 1 tab PO DAILY celecoxib [Celebrex] 200 mg capsule 200 mg PO BID 30 Days Qty: 60 3RF alprazolam 1 mg tablet 1 mg PO DAILY PRN (Reason: Anxiety) fluticasone propionate 50 mcg/actuation spray,suspension intranasal oxycodone-acetaminophen 10-325 mg tablet 1 tab PO QID PRN (Reason: Pain) gabapentin 800 mg tablet 800 mg PO TID Stand Alone Forms: Work/School Release Interventions: ED Discharge Assessment Last Done: 08/21/25 07:39 Discharge Date/Time: 08/21/25 07:39 Print Language: Bengali
[2025-08-21 06:06] VITALS: BP 119/53; PULSE 70; TEMP 36.8; O2SAT 99
[2025-08-21 07:39] VITALS: BP 119/53; PULSE 70; RESP 18; TEMP 36.8; O2SAT 99
== END 2025-08-21 07:39 | disposition home or self-care (01) ==
PROVIDERS: Emergency Provider Emergency Medicine
DX: M54.50 Low back pain, unspecified (principal); M54.2 Cervicalgia; G89.29 Other chronic pain; Z91.81 History of falling; Z87.891 Personal history of nicotine dependence; Z79.899 Other long term (current) drug therapy
CPT/HCPCS: 96374; 96375; 99284; J1171; J1200; J1630

== ENCOUNTER 2025-08-25 14:25 | Emergency (ER) | payer OTHER, SELFPAY ==
[2025-08-25 14:54] VITALS: BP 117/57; PULSE 82; RESP 16; TEMP 37; O2SAT 95; BMI 29.6
--- NOTE | 2025-08-25 16:10 | ED.BACK ---
HPI - Back Pain/Injury General Chief Complaint: Extremity Injury, Lower Stated Complaint: recent fall - disoriented, hip pain History of Present Illness HPI Narrative: RME ONLY Related Data Home Medications ?Medication ?Instructions ?Recorded ?Confirmed alprazolam 1 mg tablet 1 mg PO DAILY PRN Anxiety 03/08/23 10/09/24 fluticasone propionate 50 spray intranasal 03/08/23 10/09/24 mcg/actuation nasal spray,suspension cyclobenzaprine 10 mg tablet 20 mg PO TID PRN muscle spasm 04/11/24 10/09/24 gabapentin 800 mg tablet 800 mg PO TID 04/26/24 10/09/24 oxycodone-acetaminophen 10 mg-325 1 tab PO QID PRN Pain 04/26/24 10/09/24 mg tablet magnesium 250 mg tablet 250 mg PO DAILY 10/09/24 10/09/24 multivitamin 1 tab PO DAILY 10/09/24 10/09/24 Previous Rx's ?Medication ?Instructions ?Recorded celecoxib 200 mg capsule (Celebrex) 200 mg PO BID 30 days #60 caps 10/09/24 oxycodone 5 mg tablet 5 mg PO Q8H PRN pain #7 tabs 03/22/25 Allergies Allergy/AdvReac Type Severity Reaction Status Date / Time morphine AdvReac Itching, Verified 08/25/25 14:55 rash PMFSH Past Medical History Medical History Pinched vertebral nerve Cervical spondylarthritis Spondylolisthesis, cervical region Migraine NEC/not intrcbl Mood disorder Bipolar 1 disorder PTSD (post-traumatic stress disorder) Chronic low back pain without sciatica Panic disorder Neural foraminal stenosis of cervical spine Surgical History Hx of tubal ligation Hx of cholecystectomy S/P appendectomy Social History Social History Household Members: Significant Other Housing: Apartment Alcohol intake: current Alcohol intake frequency: a few times a week Alcohol type: beer Patient Tobacco Use Status: Former Tobacco user Tobacco use type: Cigarette Current occupational status: disabled Current occupation: rt handed Sexual orientation: Straight/Heterosexual Gender identity: Female Physical Exam Vital Signs: Vital Signs: Last Vital Signs Temp 98.6 F 12/13/25 14:54 Pulse 82 08/25/25 14:54 Resp 16 08/25/25 14:54 BP 117/57 L 08/25/25 14:54 Pulse Ox 95 08/25/25 14:54 O2 Del Method Room Air 08/25/25 14:54 BMI result Body Mass Index 29.6 Course Course Course Narrative: This is a RME preformed in triage by Allison Jordan PA-C. Date:08/25/25 Patient presents with worsening pain. [facility] records retrieved. Work UP:?record retrieval- I printed visit on 08/15/25 )(i have access), she had trauma work up blood work and full scans, I virignia hold record in PIT to review. Will defer full ROS and PE to treating provider. Patient will continued to be monitored in the interim. ? 40-year-old female (age not stated in visit; estimated from context) presents with severe left-sided pelvic pain that began after a fall on 08/15/2025 (10 days ago). ? Pain severity described as ?a thousand? on a 0?10 scale. ? Reports significant difficulty walking; unable to stand on the scale today due to pain. States she ?can walk, it just hurts really bad.? ? [facility] evaluation at [facility] immediately after the fall where a CT scan was performed (results not available today). ? Currently takes Lyrica at home for pain control; no other analgesics reported. ? Requests an MRI to further evaluate pain; was informed that outpatient ED cannot order a non-emergent MRI. ? Follow-up appointment scheduled with her PCP on 08/30/2025. ? Denies new therapies or prescriptions since the fall. Associated Symptoms / Pertinent Positives: ? Concussion history; caregiver notes episodes of confusion and asking for relatives (possible hallucinations). ? Sweating reported. ? Occasional urinary incontinence only when unable to reach the bathroom; retains awareness of need to void. Review of Systems: ? General: Positive for severe pain, sweating. ? Musculoskeletal: Positive for pelvic pain, difficulty ambulating. ? Neurological: Positive for confusion/hallucinations since concussion. ? Genitourinary: Occasional functional incontinence when unable to ambulate. Discharge Plan Discharge Clinical Impression: Pelvic pain Patient Disposition: Left W/O Completing Treatment Prescriptions: No Action oxycodone 5 mg tablet 5 mg PO Q8H PRN (Reason: pain) Qty: 7 0RF Rx Instructions: Partial Fill upon patient request. cyclobenzaprine 10 mg tablet 20 mg PO TID PRN (Reason: muscle spasm) magnesium 250 mg tablet 250 mg PO DAILY multivitamin Tablet 1 tab PO DAILY celecoxib [Celebrex] 200 mg capsule 200 mg PO BID 30 Days Qty: 60 3RF alprazolam 1 mg tablet 1 mg PO DAILY PRN (Reason: Anxiety) fluticasone propionate 50 mcg/actuation spray,suspension intranasal oxycodone-acetaminophen 10-325 mg tablet 1 tab PO QID PRN (Reason: Pain) gabapentin 800 mg tablet 800 mg PO TID Discharge Date/Time: 08/25/25 19:25
--- NOTE | 2025-08-25 16:13 | ECG_ITS ---
Test Reason : TACHY Blood Pressure : */* mmHG Vent. Rate : 57 BPM Atrial Rate : 57 BPM P-R Int : 138 ms QRS Dur : 78 ms QT Int : 394 ms P-R-T Axes : 35 -13 -9 degrees QTcB Int : 383 ms Sinus bradycardia Inferior infarct , age undetermined Cannot rule out Anterior infarct , age undetermined Abnormal ECG When compared with ECG of 08-Apr-2020 09:24, Nonspecific T wave abnormality, worse in Anterior leads Referred By: Allison Jordan Electronically Signed By: EVAN HENDERSON MD
--- OUTSIDE RECORDS SUMMARY | 2025-08-25 19:20 | XMS_ITS | Encounter Summary ---
Author Organization [employer] Address [address] [facility] 7 [place] [address] Care Team Providers Care Simulation Software Engineer Name Role Phone Clare Mo MD Primary Care Provider [phone]- [phone] Encounter Details Date Type Department Care Team ([facility] Contact Info) Description 09/29/[address] [facility] MED & PEDS [address] [place], [place] [phone] Clare Mo MD [address] [place] [address] Social History Tobacco Use Types Packs/Day Years [...] Care Team (Late st Contact Info) Description 08/30/2025 3:30 PM EST Office Visit [facility] MED & PEDS [address] [place] [address] Clare Mo MD [address] [place] [address] 10/08/2025 10:30 AM EST Telemedicine [facility] MED & PEDS [address] [place] [address] Evelina Pimentel RN [address] [place] [address] documented as of this encounter Visit Diagnoses Not on filedocumented in this encounter Care Teams Simulation Software Engineer Relationship Specialty Start Date End Date Clare Mo MD [address] [place] [address] PCP - General Internal Medicine 03/17/17 documented as of this encounter
--- OUTSIDE RECORDS SUMMARY | 2025-08-25 19:20 | XMS_ITS | Encounter Summary ---
Author Organization [employer] Address [address] [facility] [address], [place] [address] Care Team Providers Care Cardiovascular Surgeon Name Role Phone Clare Mo MD Primary Care Provider [phone]- [phone] Reason for Visit * Reason Onset Date Comments Med Refill 04/14/2024 Encounter Details Date Type Department Care Team ([facility] st Contact Info) Description 04/14/2024 Telephone [facility] [address] [place] [address] Clare Mo MD [address] [place] [address] Med Refill Social History Tobacco Use Types [...] 1 MG tablet To be sent to: [facility] - [place], [place] - [address] [place] [address] documented in this encounter Plan of Treatment Upcoming Encounters Date Type Department Care Team (Late st Contact Info) Description 08/30/2025 3:30 PM EST Office Visit [facility] ED MED & PEDS [address] [place] [address] Clare Mo MD [address] [place] [address] 10/08/2025 10:30 AM EST Telemedicine [facility] ED MED & PEDS [address] [place] [address] Evelina Pimentel RN [address] [place] [address] documented as of this encounter Visit Diagnoses Not on filedocumented in this encounter Care Teams Cardiovascular Surgeon Relationship Specialty Start Date End Date Clare Mo MD [address] [place] [address] PCP - General Internal Medicine 03/17/17 documented as of this encounter
--- OUTSIDE RECORDS SUMMARY | 2025-08-25 19:20 | XMS_ITS | Encounter Summary ---
Author Organization [employer] Address [address] [address] Care Team Providers Care Waistline Joiner Name Role Phone Clare Mo MD Primary Care Provider [phone]- [phone] Reason for Visit * Reason Onset Date Comments Results 04/02/2023 Encounter Details Date Type Department Care Team ([facility] Contact Info) Description 04/02/2023 Telephone [facility] MED & PEDS [address] [place], [place] [phone] Clare Mo MD [address] [place] [address] Results Social History Tobacco Use Types Packs/Day [...] Description 08/30/2025 3:30 PM EST Office Visit [facility] MED & PEDS [address] [place] [address] Clare Mo MD [address] [place] [address] 10/08/2025 10:30 AM EST Telemedicine [facility] MED [facility] PED[facility] [address] [place] [address] Evelina Pimentel RN [address] [place] [address] documented as of this encounter Visit Diagnoses Diagnosis Chronic midline low back pain with sciatica, sciatica laterality unspecified documented in this encounter Care Teams Waistline Joiner Relationship Specialty Start Date End Date Clare Mo MD [address] [place] [id number] PCP - General Internal Medicine 03/17/17 documented as of this encounter
--- OUTSIDE RECORDS SUMMARY | 2025-08-25 19:20 | XMS_ITS | Encounter Summary ---
Author Organization [employer] Address [address] [address] Care Team Providers Care Range Feeder Name Role Phone Clare Mo MD Primary Care Provider [phone]- [phone] Reason for Visit * Reason Comments Med Refill Encounter Details Date Type Department Care Team ([facility] st Contact Info) Description 04/05/2023 Refill [facility] MED & PEDS [address] [place], [place] [phone] Clare Mo MD [address] [place] [address] Chronic midline low back pain with sciatica, [...] Description 08/30/2025 3:30 PM EST Office Visit [facility] MED & PEDS [address] [place], [place] [phone] Clare Mo MD [address] [place] [address] 10/08/2025 10:30 AM EST Telemedicine [facility] MED [facility] PEDS [address] [place] [address] Evelina Pimentel, RN [address] [place] [address] documented as of this encounter Visit Diagnoses Diagnosis Chronic midline low back pain with sciatica, sciatica laterality unspecified Chronic low back pain, unspecified back pain laterality, unspecified whether sciatica present documented in this encounter Care Teams Range Feeder Relationship Specialty Start Date End Date Clare Mo MD [address] [place] [address] PCP - General Internal Medicine 03/17/17 documented as of this encounter
--- OUTSIDE RECORDS SUMMARY | 2025-08-25 19:20 | XMS_ITS | Encounter Summary ---
Author Organization [employer] Address [address] [place] [id number] Care Team Providers Care Billing Machine Operator Name Role Phone Clare Mo MD Primary Care Provider [phone]- [phone] Reason for Visit * Reason Onset Date Comments Medication Question 03/19/2023 Encounter Details Date Type Department Care Team ([facility] Contact Info) Description 03/19/2023 Telephone [facility] MED & PEDS [address] [place] [address] Clare Mo MD [address] [place] [address] Medication Question Social History Tobacco Use Types [...] increase, pt requested to speak to nurse plant senior manager, Wellness Coach advice to return call after 9:30 where she can be connected to a manager oncology or nurse, pt agreed to plan. * Telephone Encounter - Dania Medeiros - 03/19/2023 12:16 PM EDT Tc from pt wants to know if PCP can up the dosage for oxyCODONE-acetaminophen (Percocet) 7.5-325 MGtablet documented in this encounter Plan of Treatment Upcoming Encounters Date Type Department Care Team (Late st Contact Info) Description 08/30/2025 3:30 PM EST Office Visit [facility] MED & PEDS [address] [place] [address] Clare Mo MD [address] [place] [address] 10/08/2025 10:30 AM EST Telemedicine [facility] MED & PEDS [address] [place] [address] Evelina Pimentel, RN [address] [place] [address] documented as of this encounter Visit Diagnoses Not on filedocumented in this encounter Care Teams Billing Machine Operator Relationship Specialty Start Date End Date Clare Mo MD [address] [place] [address] PCP - General Internal Medicine 03/17/17 documented as of this encounter
--- OUTSIDE RECORDS SUMMARY | 2025-08-25 19:20 | XMS_ITS | Encounter Summary ---
Author Organization [employer] Address 75 [facility] [address], [place] [address] Care Team Providers Care Stonework Tracer Name Role Phone Clare Mo MD Primary Care Provider +1- [phone] Reason for Visit * Reason Onset Date Comments Med Refill 03/03/2024 Encounter Details Date Type Department Care Team ([facility] st Contact Info) Description 03/03/2024 Telephone [facility]INE [address] [place] [address] Clare Mo MD [address] [place] [address] Med Refill Social History Tobacco Use Types [...] as they should both have refills at [facility]. * Telephone Encounter - Ayla Gongora - 03/03/2024 10:18 AM EDT TC from pt requesting medication refill. Medications needing refill : cyclobenzaprine (Flexeril) 10 MG tablet gabapentin (Neurontin) 800 MG tablet To be sent to: [facility] - [address] documented in this encounter Plan of Treatment Upcoming Encounters Date Type Department Care Team ([facility] st Contact Info) Description 08/30/2025 3:30 PM EST Office Visit [facility] MED & PEDS [address] [place] [address] Clare Mo MD [address] [place] [address] 10/08/2025 10:30 AM EST Telemedicine [facility] PED[facility] [address] [place] [address] Evelina Pimentel RN 505 [place] [address] documented as of this encounter Visit Diagnoses Diagnosis Anxiety Anxiety state, unspecified Chronic low back pain with sciatica, sciatica laterality unspecified, unspecified back pain laterality documented in this encounter Care Teams Stonework Tracer Relationship Specialty Start Date End Date Clare Mo MD [address] [place] [address] PCP - General Internal Medicine 03/17/17 documented as of this encounter
--- OUTSIDE RECORDS SUMMARY | 2025-08-25 19:20 | XMS_ITS | Encounter Summary ---
Author Organization [employer] Address [address] [place] [address] Care Team Providers Care Ramp Flight Attendant Name Role Phone Clare Mo MD Primary Care Provider +1- [phone] Encounter Details Date Type Department Care Team ([facility] Contact Info) Description 03/23/2023 Orders Only [facility] MED & PEDS [address] [place] [address] Clare Mo MD [address] [place] [address] Chronic low back pain with sciatica, sciatica [...] Type Department Care Team ([facility] Contact Info) Description 08/30/2025 3:30 PM EST Office Visit [facility] MED & PEDS [address] [place] [address] Clare Mo MD [address] [place] [address] 10/08/2025 10:30 AM EST Telemedicine [facility] MED & PEDS [address] [place] [address] Evelina Pimentel, WILBER 505 [place], [place] [phone] documented as of this encounter Visit Diagnoses Diagnosis Chronic low back pain with sciatica, sciatica laterality unspecified, unspecified back pain laterality- Primary Vitamin D deficiency documented in this encounter Care Teams Ramp Flight Attendant Relationship Specialty Start Date End Date Clare Mo MD [address] [place] [address] PCP - General Internal Medicine 03/17/17 documented as of this encounter
--- OUTSIDE RECORDS SUMMARY | 2025-08-25 19:20 | XMS_ITS | Encounter Summary ---
Author Organization [employer] Address [address] [address] Care Team Providers Care Dining Room Host/Hostess Name Role Phone Clare Mo MD Primary Care Provider +1- [phone] Reason for Referral * Consultation (Routine) - Closed Specialty Diagnoses / Procedures Referred By Contac t Referred To Contact Orthopaedic Surgery Diagnoses Right hip pain SI joint arthritis (CMS/HCC) Clare Mo MD [address] [place] [address] Phone: tel: fax: [facility] [address] [place] [address] [address] [place] [address] Phone: tel: fax: Referral ID Status Reason Start Date Expiration Date V isits Requested Visits Authorized [id number] Closed Specialty Services Required 09/07/2024 09/07/2025 6 6 Encounter Details Date Type Department Care Team ([facility] Contact Info) Description 09/04/2024 Orders Only [facility] MED & PEDS [address] [place], [place] [phone] Clare Mo MD [address] [place], [place] [phone] Right hip pain (Primary Dx); SI joint [...] Description 08/30/2025 3:30 PM EST Office Visit [facility] MED & PEDS [address] [place] [address] Clare Mo MD [address] [place] [address] 10/08/2025 10:30 AM EST Telemedicine [facility] MED & PEDS 505 [place] [address] Evelina Pimentel RN 505 [place] [address] Scheduled Referrals Name Type Priority Associated Diagnoses Order Schedule Referral to Orthopaedic Surgery Outpatient Referral Routine Right hip pain SI joint arthritis ([facility]) Expected: 09/04/2024 (Approximate), Expires: 09/04/2025 documented as of this encounter Visit Diagnoses Diagnosis Right hip pain- Primary Pain in joint, pelvic region and thigh SI joint arthritis (CMS/HCC) documented in this encounter Care Teams Dining Room Host/Hostess Relationship Specialty Start Date End Date Clare Mo MD [address] [place] [address] PCP - General Internal Medicine 03/17/17 documented as of this encounter
--- OUTSIDE RECORDS SUMMARY | 2025-08-25 19:20 | XMS_ITS | Encounter Summary ---
Author Organization [employer] Address [address] [place] [address] Care Team Providers Care Bench Mechanic Name Role Phone Clare Mo MD Primary Care Provider +1- [phone] Encounter Details Date Type Department Care Team ([facility] Contact Info) Description 04/20/2023 Orders Only [facility] CHC MED & PEDS [address] [place] [address] Clare Mo MD 505 [place] [address] Pain in both hands (Primary Dx); Chronic [...] Type Department Care Team ([facility] Contact Info) Description 08/30/2025 3:30 PM EST Office Visit [facility] MED & PEDS [address] [place] [address] Clare Mo MD 505 [place] [address] 10/08/2025 10:30 AM EST Telemedicine [facility] MED & PEDS [address] [place] [address] Evelina Pimentel, RN [address] [place], [place] [phone] documented as of this encounter Visit Diagnoses Diagnosis Pain in both hands- Primary Chronic low back pain, unspecified back pain laterality, unspecified whether sciatica present documented in this encounter Care Teams Bench Mechanic Relationship Specialty Start Date End Date Clare Mo MD 505 [place] [address] PCP - General Internal Medicine 03/17/17 documented as of this encounter
--- OUTSIDE RECORDS SUMMARY | 2025-08-25 19:20 | XMS_ITS | Encounter Summary ---
Author Organization [employer] Address [address] [place] [address] Care Team Providers Care Tour Sales Representative Name Role Phone Clare Mo MD Primary Care Provider +1- [phone] Reason for Referral * Consultation (Urgent) - Closed Specialty Diagnoses / Procedures Referred By Contac t Referred To Contact Neurosurgery Diagnoses Lumbar nerve root impingement Clare Mo MD [address] [place] [address] Phone: tel: fax: Keli Suggs [address] [place] [address], [address] [place], [place] Phone: tel: fax: Referral ID Status Reason Start Date Expiration Date V isits Requested Visits Authorized [id number] Closed Specialty Services Required 01/11/2024 01/10/2025 1 1 Encounter Details Date Type Department Care Team (Late st Contact Info) Description 01/11/2024 Orders Only [facility] CH[facility] MED & PEDS [address] [place], [place] [phone] Clare Mo MD [address] [place] [address] Lumbar nerve root impingement (Primary Dx); Chronic [...] EST Office Visit [facility] MED & PEDS 505 [place] [address] Clare Mo MD [address] [place] [address] 10/08/2025 10:30 AM EST Telemedicine [facility] MED & PEDS [address] [place] [address] Evelina Pimentel RN [address] [place] [address] Scheduled Referrals Name Type Priority Associated Diagnoses [...] unspecified documented in this encounter Care Teams Tour Sales Representative Relationship Specialty Start Date End Date Clare Mo MD [address] [place] [address] PCP - General Internal Medicine 03/17/17 documented as of this encounter
--- OUTSIDE RECORDS SUMMARY | 2025-08-25 19:20 | XMS_ITS | Encounter Summary ---
Author Organization [employer] Address 75 [facility] 7 [place] [address] Care Team Providers Care Baggage Inspector Name Role Phone Clare Mo MD Primary Care Provider +1 [phone] Encounter Details Date Type Department Care Team ([facility] Contact Info) Description 02/24/2024 Orders Only [facility] [address] [place], [place] [phone] Provider, MD Radhika Social History Tobacco Use [...] Description 08/30/2025 3:30 PM EST Office Visit [facility] MED & PEDS [address] [place] [address] Clare Mo MD 505 [place] [address] 10/08/2025 10:30 AM EST Telemedicine [facility] MED & PEDS [address] [place] [address] Evelina Pimentel RN 505 [place] [address] documented as of this encounter Procedures Procedure [...] on filedocumented in this encounter Care Teams Baggage Inspector Relationship Specialty Start Date End Date Clare Mo MD [address] [place] [address] PCP - General Internal Medicine 03/17/17 documented as of this encounter
--- OUTSIDE RECORDS SUMMARY | 2025-08-25 19:20 | XMS_ITS | Encounter Summary ---
Author Organization [employer] Address 75 [place] [address] Care Team Providers Care Community Representative Name Role Phone Clare Mo MD Primary Care Provider +1- [phone] Reason for Visit * Reason Onset Date Comments Med Refill 04/02/2023 Medication Question 04/02/2023 Encounter Details Date Type Department Care Team ([facility] Contact Info) Description 04/02/2023 Telephone [facility] MED & PEDS [address] [place] [address] Clare Mo MD [address] [place], [place] [phone] Med Refill; Medication Question Social History Tobacco [...] Description 08/30/2025 3:30 PM EST Office Visit [facility] MED & PEDS [address] [place] [address] Clare Mo MD [address] [place] [address] 10/08/2025 10:30 AM EST Telemedicine [facility] MED & PEDS [address] [place] [address] Evelina Pimentel RN 505 [place] [address] documented as of this encounter Visit Diagnoses Not on filedocumented in this encounter Care Teams Community Representative Relationship Specialty Start Date End Date Clare Mo MD [address] [place] [address] PCP - General Internal Medicine 03/17/17 documented as of this encounter
--- OUTSIDE RECORDS SUMMARY | 2025-08-25 19:20 | XMS_ITS | Encounter Summary ---
Author Organization [employer] Address 75 [facility] 7 [place] [address] Care Team Providers Care Supervisor Electronics Processing Name Role Phone Clare Mo MD Primary Care Provider +1- [phone] Reason for Visit * Reason Comments Med Refill Encounter Details Date Type Department Care Team ([facility] st Contact Info) Description 01/25/2024 Refill [facility] MEDICINE [address] [place] [address] Clare Mo MD [address] [place], [place] [phone] Chronic low back pain with sciatica, sciatica [...] Description 08/30/2025 3:30 PM EST Office Visit [facility] MED & PEDS [address] [place] [address] Clare Mo MD [address] [place] [address] 10/08/2025 10:30 AM EST Telemedicine [facility] MED & PEDS [address] [place] [address] Evelina Pimentel RN [address] [place] [address] documented as of this encounter Visit Diagnoses Diagnosis Chronic low back pain with sciatica, sciatica laterality unspecified, unspecified back pain laterality Anxiety Anxiety state, unspecified documented in this encounter Care Teams Supervisor Electronics Processing Relationship Specialty Start Date End Date Clare Mo MD [address] [place] [address] PCP - General Internal Medicine 03/17/17 documented as of this encounter
--- OUTSIDE RECORDS SUMMARY | 2025-08-25 19:20 | XMS_ITS | Encounter Summary ---
Author Organization [employer] Address 75 [facility] [address] [address] Care Team Providers Care Box Stacker Name Role Phone Clare Mo MD Primary Care Provider +1- [phone] Reason for Visit * Reason Onset Date Comments Call Back Request 01/06/2024 Encounter Details Date Type Department Care Team ([facility] Contact Info) Description 01/06/2024 Telephone [facility] MED & PEDS [address] [place] [address] Clare Mo MD [address] [place] [address] Call Back Request Social History Tobacco Use [...] Miscellaneous Notes * Telephone Encounter - Dania Medeiros - 01/06/2024 1:01 PM EDT Tc from pt requesting to speak directly with you in regards to ER visit yesterday. States needs a call back as soon as possible. documented in this encounter Plan of Treatment Upcoming Encounters Date Type Department Care Team (Late st Contact Info) Description 08/30/2025 3:30 PM EST Office Visit [facility] MED & PEDS [address] [place] [address] Clare Mo MD [address] [place] [address] 10/08/2025 10:30 AM EST Telemedicine [facility] MED & PEDS [address] [place] [address] Evelina Pimentel, WILBER 505 [place] [address] documented as of this encounter Visit Diagnoses Not on filedocumented in this encounter Care Teams Box Stacker Relationship Specialty Start Date End Date Clare Mo MD [address] [place] [address] PCP - General Internal Medicine 03/17/17 documented as of this encounter
--- OUTSIDE RECORDS SUMMARY | 2025-08-25 19:20 | XMS_ITS | Encounter Summary ---
Author Organization [employer] Address [address] [place] [address] Care Team Providers Care Commercial Attorney Name Role Phone Clare Mo MD Primary Care Provider +1- [phone] Reason for Referral * Consultation (Routine) - Closed Specialty Diagnoses / Procedures Referred By Contac t Referred To Contact Nutrition Diagnoses Obesity, unspecified classification, unspecified obesity type, unspecified whether serious comorbidity present Clare Mo MD [address] [place] [address] Phone: tel: fax: Referral ID Status Reason Start Date Expiration Date V isits Requested Visits Authorized [id number] Closed Consult and Treat 05/19/2024 05/19/2025 1 1 Encounter Details Date Type Department Care Team ([facility] st Contact Info) Description 05/19/2024 Orders Only [facility] CHC MED & PEDS [address] [place] [address] Clare Mo MD [address] [place] [address] Obesity, unspecified classification, unspecified obesity type, unspecified [...] Description 08/30/2025 3:30 PM EST Office Visit [facility] MED & PEDS [address] [place] [address] Clare Mo MD [address] [place] [address] 10/08/2025 10:30 AM EST Telemedicine [facility] MED & PEDS [address] [place] [address] Evelina Pimentel RN 505 [place] [address] Scheduled Referrals Name Type Priority Associated Diagnoses Orde r Schedule Referral to Nutrition Therapy Outpatient Referral Routine Obesity, unspecified classification, unspecified obesity type, unspecified whether serious comorbidity present Expected: 05/19/2024 (Approximate), Expires: 05/19/2025 documented as of this encounter Visit Diagnoses Diagnosis Obesity, unspecified classification, unspecified obesity type, unspecified whether serious comorbidity present- Primary documented in this encounter Care Teams Commercial Attorney Relationship Specialty Start Date End Date Clare Mo MD [address] [place] [address] PCP - General Internal Medicine 03/17/17 documented as of this encounter
--- OUTSIDE RECORDS SUMMARY | 2025-08-25 19:21 | XMS_ITS | Encounter Summary ---
Author Organization [employer] Address 75 [facility] 7 [place] [address] Care Team Providers Care Can Slider Name Role Phone Clare Mo MD Primary Care Provider +1- [phone] Encounter Details Date Type Department Care Team ([facility] Contact Info) Description 05/02/2025 Orders Only [facility] CHC MED & PEDS [address] [place], [place] [phone] Clare Mo MD [address] [place] [address] Cervical spondylosis (Primary Dx); Facet arthritis, degenerative, [...] 08/30/2025 3:30 PM EST Office Visit [facility] MED & PEDS [address] [place] [address] Clare Mo MD 505 [place] [address] 10/08/2025 10:30 AM EST Telemedicine [facility] MED & PEDS [address] [place] [address] Evelina Pimentel, WILBER 505 [place] [address] documented as of this encounter Visit Diagnoses Diagnosis Cervical spondylosis- Primary Cervical spondylosis without myelopathy Facet arthritis, degenerative, lumbar spine Mild intermittent asthma without complication documented in this encounter Care Teams Can Slider Relationship Specialty Start Date End Date Clare Mo MD [address] [place] [address] PCP - General Internal Medicine 03/17/17 documented as of this encounter
--- OUTSIDE RECORDS SUMMARY | 2025-08-25 19:21 | XMS_ITS | Encounter Summary ---
Author Organization [employer] Address 75 [facility] [address], [place] [address] Care Team Providers Care Certified Medical Technician Name Role Phone Clare Mo MD Primary Care Provider +1- [phone] Reason for Visit * Reason Onset Date Comments Nurse Triage 08/22/2025 Encounter Details Date Type Department Care Team ([facility] Contact Info) Description 08/22/2025 Telephone [facility] [address] [place] [address] Clare Mo MD [address] [place] [address] Nurse Triage Social History Tobacco Use Types [...] encounter Miscellaneous Notes * Telephone Encounter - Radha Whitney RN - 08/22/2025 3:10 PM EST Called pt to triage, spoke to pt. Pt states seen 08/15 in the ER after a fall and again on 08/21 for low back pain. Pt reports chronic low back pain, but now getting worse. Pt states pain low back thatradiates down the left leg with intermittent numbness and tingling. Given ER follow up with PCP 08/30 at 3:30 for recheck, follow up and exam. Advised to follow discharge instructions, ice, heat, medications as prescribed, and call back as needed. Pt understands and agrees with plan. * Telephone Encounter - Kirsty Mo - 08/22/2025 2:21 PM EST Patient calling to report ED visit on : Date: 08/21 Hospital: [facility] Seen for: Lower back pain Symptomatic Yes *if yes message should go to Triage Patient advised will forward to team nurse for follow up PCP Dr. Mo documented in this encounter Plan of Treatment Upcoming Encounters Date Type Department Care Team ([facility] st Contact Info) Description 08/30/2025 3:30 PM EST Office Visit [facility] [address] [place] [address] Clare Mo MD [address] [place] [address] 10/08/2025 10:30 AM EST Telemedicine [facility] MED & PEDS [address] [place] [address] Evelina Pimentel RN [address] [place] [address] documented as of this encounter Visit Diagnoses Not on filedocumented in this encounter Care Teams Certified Medical Technician Relationship Specialty Start Date End Date Clare Mo MD [address] [place] [address] PCP - General Internal Medicine 03/17/17 documented as of this encounter
--- OUTSIDE RECORDS SUMMARY | 2025-08-25 19:21 | XMS_ITS | Encounter Summary ---
Author Organization [employer] Address [address] [address] Care Team Providers Care Credit Reporter Name Role Phone Clare Mo MD Primary Care Provider +1- [phone] Reason for Visit * Reason Onset Date Comments call back 02/12/2023 Encounter Details Date Type Department Care Team ([facility] Contact Info) Description 02/12/2023 Telephone [facility] MEDICINE [address] [place] [address] Clare Mo MD [address] [place] [address] call back Social History Tobacco Use Types [...] PCP cancelled script. Please contact pt at [phone] documented in this encounter Plan of Treatment Upcoming Encounters Date Type Department Care Team ([facility] st Contact Info) Description 08/30/2025 3:30 PM EST Office Visit [facility] MED & PEDS [address] [place] [address] Clare Mo MD [address] [place] [address] 10/08/2025 10:30 AM EST Telemedicine [facility] MED & PEDS [address] [place] [address] Evelina Pimentel, WILBER 505 [place] [address] documented as of this encounter Visit Diagnoses Not on filedocumented in this encounter Care Teams Credit Reporter Relationship Specialty Start Date End Date Clare Mo MD [address] [place] [address] PCP - General Internal Medicine 03/17/17 documented as of this encounter
--- OUTSIDE RECORDS SUMMARY | 2025-08-25 19:21 | XMS_ITS | Encounter Summary ---
Author Organization [employer] Address 75 [facility] 7 [place] [address] Care Team Providers Care Field Superintendent Name Role Phone Clare Mo MD Primary Care Provider +1- [phone] Reason for Visit * Reason Onset Date Comments Med Refill 01/09/2025 Encounter Details Date Type Department Care Team ([facility] st Contact Info) Description 01/09/2025 Refill [facility] MEDICINE [address] [place] [address] Clare Mo MD [address] [place] [address] Chronic low back pain with sciatica, sciatica [...] Health And Wellness st Contact Info) Description 08/30/2025 3:30 PM EST Office Visit [facility] MED & PEDS [address] [place] [address] Clare Mo MD [address] [place] [address] 10/08/2025 10:30 AM EST Telemedicine [facility] MED & PEDS [address] [place] [address] Evelina Pimentel, WILBER [address] [place] [address] documented as of this encounter Visit Diagnoses Diagnosis Chronic low back pain with sciatica, sciatica laterality unspecified, unspecified back pain laterality documented in this encounter Care Teams Field Superintendent Relationship Specialty Start Date End Date Clare Mo MD [address] [place] [address] PCP - General Internal Medicine 03/17/17 documented as of this encounter
--- OUTSIDE RECORDS SUMMARY | 2025-08-25 19:21 | XMS_ITS | Encounter Summary ---
Author Organization [employer] Address 75 [facility] 7[place] [address] Care Team Providers Care Sheet Metal Installer Name Role Phone Clare Mo MD Primary Care Provider +1- [phone] Reason for Visit * Reason Onset Date Comments Med Refill 07/26/2023 Encounter Details Date Type Department Care Team ([facility] st Contact Info) Description 07/26/2023 Telephone [facility] MEDICINE [address] [place] [address] Clare Mo MD [address] [place] [address] Med Refill Social History Tobacco Use Types [...] Description 08/30/2025 3:30 PM EST Office Visit [facility] MED & PEDS 505 [place] [address] Clare Mo MD 505 [place] [address] 10/08/2025 10:30 AM EST Telemedicine [facility] MED & PEDS [address] [place] [address] Evelina Pimentel, WILBER 505 [place] [address] documented as of this encounter Visit Diagnoses Not on filedocumented in this encounter Care Teams Sheet Metal Installer Relationship Specialty Start Date End Date Clare Mo MD [address] [place] [address] PCP - General Internal Medicine 03/17/17 documented as of this encounter
--- OUTSIDE RECORDS SUMMARY | 2025-08-25 19:21 | XMS_ITS | Encounter Summary ---
Author Organization [employer] Address 75 [facility] 7 [place] [address] Care Team Providers Care Stand In Name Role Phone Clare Mo MD Primary Care Provider +1- [phone] Encounter Details Date Type Department Care Team ([facility] Contact Info) Description 10/20/2024 Orders Only [facility] MED & PEDS [address] [place], [place] [phone] Clare Mo MD [address] [place] [address] Chronic low back pain with sciatica, sciatica [...] the past 12 months, has t he [employer] gas, oil or water [employer] threatened to shut off services in your [...] 3:30 PM EST Office Visit [facility] MED & PEDS [address] [place] [address] Clare Mo MD [address] [place] [address] 10/08/2025 10:30 AM EST Telemedicine [facility] MED & PEDS [address] [place] [address] Evelina Pimentel, WILBER [address] [place] [address] documented as of this encounter Visit Diagnoses Diagnosis Chronic low back pain with sciatica, sciatica laterality unspecified, unspecified back pain laterality- Primary documented in this encounter Care Teams Stand In Relationship Specialty Start Date End Date Clare Mo MD [address] [place] [address] PCP - General Internal Medicine 03/17/17 documented as of this encounter
--- OUTSIDE RECORDS SUMMARY | 2025-08-25 19:21 | XMS_ITS | Encounter Summary ---
Author Organization [employer] Address [address] [address] Care Team Providers Care Straight Knife Cutter Machine Name Role Phone Clare Mo MD Primary Care Provider +1- [phone] Reason for Visit * Reason Onset Date Comments Med Refill 03/19/2023 Encounter Details Date Type Department Care Team ([facility] Contact Info) Description 03/19/2023 Telephone [facility] CHC MED & PEDS [address] [place] [address] Clare Mo MD [address] [place] [address] Med Refill Social History Tobacco Use Types [...] Upcoming Encounters Date Type Department Care Team ([facility] st Contact Info) Description 08/30/2025 3:30 PM EST Office Visit [facility] MED & PEDS [address] [place] [address] Clare Mo MD [address] [place] [address] 10/08/2025 10:30 AM EST Telemedicine [facility] MED & PEDS [address] [place] [address] Evelina Pimentel RN [address] [place] [address] documented as of this encounter Visit Diagnoses Not on filedocumented in this encounter Care Teams Straight Knife Cutter Machine Relationship Specialty Start Date End Date Clare Mo MD [address] [place] [address] PCP - General Internal Medicine 03/17/17 documented as of this encounter
--- OUTSIDE RECORDS SUMMARY | 2025-08-25 19:21 | XMS_ITS | Clinical Summary ---
Author Organization [email or web address] Address 75 [facility] 7 [place] [address] Care Team Providers Care Legal Research Analyst Name Role Phone Clare Mo MD Primary Care Provider +1- [phone] Allergies Active Allergy Reactions Criticality Noted Date [...] 2025 Active Blood Glucose Monitoring Suppl (FreeStyle Maricopa Lite) w/Device kitIndications: Dizziness Use to test blood sugar 1 times daily 1 kit 025 Active Blood Pressure kitIndications: Dizziness To check the BP daily 1 kit 025 Active Misc. Devices (Pulse Oximeter Deluxe) miscIndications :Dizziness To check the O2 sat every 4 hours 1 each Active magnesium gluconate 250 MG tablet Take 250 mg by mouth. Active neomycin-polymy andrew-hydrocortis one (Cortisporin) 3.5-20859-[address] 3 to 4 DROPS [...] back pain 02/05/2016 Depressed bipolar I disorder ([facility]) 6 Migraine 02/05/2016 Mood disorder 02/05/2016 Panic disorder 02/05/2016 Posttraumatic stress disorder 02/05/2016 Encounters * This document contains information received from the source organization and may not represent a complete record from that organization. Date Type Department Care Team Description 08/22/2025 Telephone [facility] MEDICINE [address] [place] [address] Clare Mo MD Nurse Triage 08/15/2025 Refill [facility] [address] [place] [address] Clare Mo MD Foraminal stenosis of cervical region 08/14/2025 Refill [facility] MED & PEDS [address] [place], [place] [phone] Clare Mo MD Anxiety; Chronic low back pain with sciatica, sciatica laterality unspecified, unspecified back pain laterality 07/30/2025 Refill [facility] [address] [place] [address] Clare Mo MD Foraminal stenosis of cervical region 07/20/2025 Refill [facility] [address] [place] [address] Clare Mo MD Foraminal stenosis of cervical region 07/19/2025 11:00 AM EST Clinical Support [facility] MED & PEDS [address] [place] [address] Evelina Pimentel, food and beverage server low back pain with sciatica, sciatica laterality unspecified, unspecified back pain laterality (Primary Dx) 07/19/2025 Orders Only [facility] MED & PEDS [address] [place] [address] Clare Mo MD Anxiety (Primary Dx) 07/19/2025 Telephone [facility] MED & PEDS [address] [place] [address] Evelina Pimentel RN 07/19/2025 Travel 07/15/2025 Refill [facility] MED & PEDS [address] [place] [address] Clare Mo MD Mild persistent asthma without complication; Chronic low back pain with sciatica, sciatica laterality unspecified, unspecified back pain laterality; Anxiety 07/03/2025 Refill [facility] [address] [place] [address] Clare Mo MD Foraminal stenosis of cervical region 06/28/2025 Telephone [facility] MED & PEDS [address] [place] [address] Clare Mo MD Medication Question 06/28/2025 Telephone [facility] MED & PEDS [address] [place] [address] Clare Mo MD Medication Question 06/21/2025 Refill [facility] [address] [place] [address] Clare Mo MD Foraminal stenosis of cervical region 06/20/2025 Refill [facility] MED & PEDS [address] [place] [address] Evelina Pimentel, WILBER Anxiety 06/20/2025 Telephone [facility] MED & PEDS [address] [place] [address] Clare Mo MD 06/20/2025 Refill [facility] MED & PEDS [address] [place] [address] Clare Mo MD Chronic low back pain with sciatica, sciatica laterality unspecified, unspecified back pain laterality; Neck pain 06/20/2025 Telephone [facility] MED & PEDS [address] [place] [address] Clare Mo MD Durable Medical Equipment 06/11/2025 Telephone [facility] MED & PEDS [address] [place] [address] Evelina Pimentel RN 06/11/[address] [address] Clare Mo MD Call Back Request 06/08/2025 Refill [facility] [address] [place] [address] Clare Mo MD Foraminal stenosis of cervical region 06/04/2025 Telephone [facility] MED & PEDS [address] [place] [address] Clare Mo MD Durable Medical Equipment 06/01/2025 3:45 PM EDT Office Visit [facility] MED & PEDS [address] [place] [address] Clare Mo MD Mild persistent asthma without complication (Primary Dx); Primary osteoarthritis of both ankles 06/01/2025 Travel 05/29/2025 Telephone [facility] MED & PEDS [address] [place] [address] Clare Mo MD Durable Medical Equipment; Form request; Care Coordination from Last 3 Months Immunizations Immunization Administration [...] Description 08/30/2025 3:30 PM EST Office Visit [facility] MED & PEDS [address] [place] [address] Clare Mo MD [address] [place] [address] 10/08/2025 10:30 AM EST Telemedicine [facility] MED & PEDS [address] [place] [address] Evelina Pimentel RN [address] [place] [address] Health Maintenance Due Date Last Done Comments [...] Unknown 07/19/2025 11:19 AM EST Narrative Evelina Pimentel, RN - 07/19/2025 11:19 AM EST . Internal Pass Control Lot# [id number] Exp: 07-13-26 Clare Mo MD POINT OF CARE TEST ENTER/ED IT ORDERABLES Final Result * BI Mammogram Screening Tomosynthesis Bilateral (04/30/2025 1:40 PM EDT) Anatomical Region Laterality Modality Breast Bilateral Mammography 04/30/2025 1:40 PM EDT Narrative 05/02/2025 9:21 AM EDT [address] [place] [address] Mammography Report Signed Patient: May Macedo MR#: [id number] : 1980 Acct:[id number] Age/Sex: 44 / F ADM Date: 04/30/25 Loc: HO.MAMMO Attending Dr: Clare Mo MD Ordering Physician: Clare Mo MD Results: 1 Negative Date of Service: 04/30/25 Follow Up: 1 Year From Orig ina Mammogram Procedure(s): MM tomosynthesis screening BI Accession Number(s): [id number] cc: Clare Mo MD EXAMINATION: MM SCREENING [...] 05/02/25 0918 DD/ 1340 TD/TT: 04/30/25 1350 Phy Therapist: Procedure Note Donotuseinterpreter, Image - 05/02/2025 [facility] [address] [place] [address] Mammography Report Signed Patient: May MacedoMR#: [id number] : 1980Acct:[id number] Age/Sex: 44 / FADM Date: 04/30/25 Loc: HO.MAMMO Attending Dr: Clare Mo MD Ordering Physician: Clare Mo MDResults: 1 Negative Date of Service: 04/30/25Follow Up: 1 Year From [facility] Mammogram Procedure(s): MM tomosynthesis screening BI Accession Number(s): [id number] cc: Clare Mo MD EXAMINATION: MM SCREENING [...] 05/02/25 0918 DD/ 1340 TD/TT: 04/30/25 1350 Phy Therapist: us Clare Mo MD IMG BI PROCEDURES Final Res ult * Hepatitis C Antibody with Reflex to HCV, RNA, Quantitative, Real-Time PCR (02/28/2025 12:36 PM EDT) Hepatitis C Antibody Nonreactive Nonreactive [facility] Comment:Antibodies to HCV no t detected; does not exclude early acuteHCV infection. Blood Venous blood specimen / Unknown 02/28/2025 12:36 PM EDT 02/28/2025 2:06 PM EDT us Clare Mo MD LAB BLOOD ORDERABLES Final Result [facility] [address] [place] [phone] * HIV-1/2 Antigen and Antibodies, Fourth Generation, with Reflexes (02/28/2025 12:36 PM EDT) HIV AB/AG Nonreactive Nonreactive [facility] Comment:HIV-1 p24 Ag and/or HIV-1/HIV-2 Ab not detected.A test result that is nonreactive does not exclude thepossibility of exposure to or infection with HIV-1 and/orHIV-2. Nonreactive results in this assay for individualswith prior exposure to HIV-1 and/or HIV-2 may be due toantigen and antibody levels that are below the limit ofdetection of this assay.The [employer]arris Alinity HIV Ag/Ab Combo assay result andsupplemental assay results should be interpreted inconjunction with the patient's clinical presentation,history and other laboratory results. If the results areinconsistent with clinical evidence, additional testing issuggested to confirm the result. Blood Venous blood specimen / Unknown 02/28/2025 12:36 PM EDT 02/28/2025 2:06 PM EDT us Clare Mo MD LAB BLOOD ORDERABLES Final Result Performing Organization Address City/[facility]/ZIP Co de Phone Number [facility] [address] [place], [place] [phone] * Lipid Panel, Standard (02/28/2025 12:36 PM EDT) Triglycerides 111 <150 mg/dL [facility] Comment:Desirable Triglyceri de: less than 150 mg/dLBorderline High Triglyceride 150-199 mg/dLHigh Triglyceride: 200-499 mg/dLVery High Triglyceride: greater than or equal to 5OO mg/dL Cholesterol 181 <200 mg/dL [facility] Comment:Desirable Cholestero l: less than 200 mg/dLBorderline High Cholesterol: 200-239 mg/dLHigh Cholesterol: greater than 239 mg/dL LDL Cholesterol Calculated 95 <100 mg/dL [facility] Comment:Desirable LDL: less than 100 mg/dLNear Optimal/Above Optimal LDL: 110- 129 mg/dLBorderline High LDL: 130-159 mg/dLHigh LDL: 160-189 mg/dLVery High LDL: greater than or equal to 190 mg/dL HDL Cholesterol 64 >40 mg/dL [facility] Comment:Desirable HDL: great er than 40 mg/dL Note: This HDL assay may give artificially low results in patients with liver disease. Blood Venous blood specimen / Unknown 02/28/2025 12:36 PM EDT 02/28/2025 2:06 PM EDT us Clare Mo MD LAB BLOOD ORDERABLES Final Result [facility] [address] [place] [address] [phone] * Hm Colonoscopy (08/31/2024 10:14 AM EST) us Historical Provider HEALTH MAINTENANCE Final Result * Pap Smear (03/08/2023 12:18 PM EDT) 03/08/2023 12:1 8 PM EDT 03/10/2023 8:55 AM EDT Narrative [facility] - 03/27/2023 3:23 PM EDT ----- ------- Name: Remington GongoraMay Age/Sex: 42/F : 1980 Unit#: [id number] Attend Dr: Jeff William MD Re03/08/23 Status: DEP REF Location: [facility] Disch: ----- ------- SPEC : [id number] RECD: 03/10/23 STATUS: PO LYNCH NUM: [id number] BRANDON: 03/08/23-1218 [facility] DR: Jeff William MD ENTERED: 03/10/23-939 SP TYPE: Pap Smr OT DR: Clare Mo MD ORDERED: Pap Smear Interpretation Satisfactory for evaluation. No endocervical cells seen. Negative for intraepithelial lesion or malignancy. HPV mRNA E6/E7: NOT DETECTED This assay detects E6/E7 viral messenger RNA (mRNA) from 14 high-risk HPV types (16, 18, 31, 33, 35, 39, 45, 51, 52, 56, 58, 59, 66, 68) HPV testing performed by [facility], [place], [place]. See reference laboratory portion of the EMR for entire report. Clinical Information LMP: 03/05/23 Previous PAP test: Unknown date/findings Material Received ThinPrep-Cervical Copies To: Clare Mo MD [address] [place] [phone] Jeff William MD [address] [place] [address] Dr. Matthews [address] [place] [phone] ----- ------- Signed (signature on file) Alondra Santillan 03/27/23 1523 ----- ------- END OF REPORT [facility] External Provider LAB CYT OLOGY ORDERABLES Final Result [facility] [address] [place] [address] [phone] * HPV mRNA E6/E7 (10/24/2019 3:31 PM EST) HPV mRNA E6/E7 Not Detected NOT DETECTED [employer] Comment: This test was performed using the APTIMA(R) HPV Assay ([employer] This assay detects E6/E7 viral messenger RNA (mRNA) from 14 high-risk HPV types (16,18,31,33,35,39,45,51, 52,56,58,59,66,68). For additional information please refer to: http://Druva.BoostUp/faq/BVD828n1 (This link is being provided for informational/ educational purposes only.) The analytical performance characteristics of this assay have been determined by [employer] [place], [place]. The modifications have not been cleared or approved by the FDA. This assay has been validated pursuant to the CLIA regulations and is used for clinical purposes. Test Performed by [facility], [facility], [address] [place] [address] Jalen Hart M.D., Ph.D., Director of Laboratories , CLIA [id number] Please note: Effective 05/25/2016, HPV testing will be performed using [employer]'s APTIMA test which targets mRNA. Detecting mRNA instead of DNA, as in older methods, offers significant improvements in specificity. 10/24/2019 3:31 PM EST Camille Ash CNM HISTORICAL/NON ORDERABLE LABS Final Result [facility] Anywhere [address] from Last 3 Months or Most Recently Relevant to Health Maintenance [facility] ST[facility]ARD CCA ONE CARE < 65 [facility] MEDICAID STAND ADULT Care Teams Legal Research Analyst Relationship Specialty Start Date End Date Clare Mo MD [address] [place], [place] [address], [place] [address] PCP - General Internal Medicine 03/17/17
--- OUTSIDE RECORDS SUMMARY | 2025-08-25 19:21 | XMS_ITS | Encounter Summary ---
Author Organization [employer] Address [address] [address] Care Team Providers Care Hand Tube Winder Name Role Phone Clare oM MD Primary Care Provider +1- [phone] Reason for Visit * Reason Onset Date Comments Medication Question 03/15/2025 Encounter Details Date Type Department Care Team ([facility] Contact Info) Description 03/15/2025 Telephone [facility] CHC MED & PEDS [address] [place] [address] Clare Mo MD [address] [place] [address] Medication Question Social History Tobacco Use Types [...] not be back 04/28 Contact pt at [phone] documented in this encounter Plan of Treatment Upcoming Encounters Date Type Department Care Team (Late st Contact Info) Description 08/30/2025 3:30 PM EST Office Visit [facility] MED & PEDS [address] [place] [address] Clare Mo MD [address] [place] [address] 10/08/2025 10:30 AM EST Telemedicine [facility] MED & PEDS [address] [place] [address] Evelina Pimentel RN [address] [place] [address] documented as of this encounter Visit Diagnoses Diagnosis Foraminal stenosis of cervical region Chronic low back pain with sciatica, sciatica laterality unspecified, unspecified back pain laterality Anxiety Anxiety state, unspecified documented in this encounter Care Teams Hand Tube Winder Relationship Specialty Start Date End Date Clare Mo MD [address] [place] [address] PCP - General Internal Medicine 03/17/17 documented as of this encounter
--- OUTSIDE RECORDS SUMMARY | 2025-08-25 19:21 | XMS_ITS | Encounter Summary ---
Author Organization [employer] Address 75 [facility] [place] [address] Care Team Providers Care Ceiling Insulation Blower Name Role Phone Clare Mo MD Primary Care Provider +1- [phone] Reason for Visit * Reason Onset Date Comments Med Refill 01/03/2025 Encounter Details Date Type Department Care Team ([facility] st Contact Info) Description 01/03/2025 Telephone [facility] MEDICINE [address] [place] [address] Clare Mo MD [address] [place], [place] [phone] Med Refill Social History Tobacco Use Types [...] tablet To be sent to: [facility] - [place], [place] - [address] [place] [address] documented in this encounter Plan of Treatment Upcoming Encounters Date Type Department Care Team (Late st Contact Info) Description 08/30/2025 3:30 PM EST Office Visit [facility] MED & PEDS [address] [place] [address] Clare Mo MD [address] [place] [address] 10/08/2025 10:30 AM EST Telemedicine [facility] MED & PEDS [address] [place] [address] Evelina Pimentel RN [address] [place] [address] documented as of this encounter Visit Diagnoses Not on filedocumented in this encounter Care Teams Ceiling Insulation Blower Relationship Specialty Start Date End Date Clare Mo MD [address] [place] [address] PCP - General Internal Medicine 03/17/17 documented as of this encounter
--- OUTSIDE RECORDS SUMMARY | 2025-08-25 19:21 | XMS_ITS | Encounter Summary ---
Author Organization [employer] Address [address] [place] [address] Care Team Providers Care Reproductive Endocrinologist Name Role Phone Clare Mo MD Primary Care Provider +1- [phone] Reason for Visit * Reason Comments Med Refill Encounter Details Date Type Department Care Team ([facility] Contact Info) Description 02/11/2023 Refill [facility] MED & PEDS [address] [place] [address] Clare Mo MD [address] [place] [address] Chronic low back pain with sciatica, sciatica [...] Care Team ([facility] Contact Info) Description 08/30/2025 3:30 PM EST Office Visit [facility] CH[facility] MED & PEDS [address] [place] [address] Clare Mo MD [address] [place] [address] 10/08/2025 10:30 AM EST Telemedicine [facility] CHC MED & PEDS [address] [place] [address] Evelina Pimentel, WILBER [address] [place], [place] [phone] documented as of this encounter Visit Diagnoses Diagnosis Chronic low back pain with sciatica, sciatica laterality unspecified, unspecified back pain laterality documented in this encounter Care Teams Reproductive Endocrinologist Relationship Specialty Start Date End Date Clare Mo MD [address] [place] [address] PCP - General Internal Medicine 03/17/17 documented as of this encounter
--- OUTSIDE RECORDS SUMMARY | 2025-08-25 19:21 | XMS_ITS | Encounter Summary ---
Author Organization [employer] Address [address] [place] [address] Care Team Providers Care Infantry Operations Specialist Name Role Phone Clare Mo MD Primary Care Provider +1- [phone] Reason for Visit * Reason Comments Med Refill Encounter Details Date Type Department Care Team ([facility] Contact Info) Description 02/24/2023 Refill [facility] MED & PEDS [address] [place] [address] Clare Mo MD [address] [place] [address] Anxiety; Chronic low back pain with sciatica, [...] Team ([facility] Contact Info) Description 08/30/2025 3:30 PM EST Office Visit [facility] MED & PEDS [address] [place] [address] Clare Mo MD [address] [place] [address] 10/08/2025 10:30 AM EST Telemedicine [facility] CHC MED & PEDS [address] [place] [address] Evelina Pimentel, WILBER [address] [place] [address] documented as of this encounter Visit Diagnoses Diagnosis Anxiety Anxiety state, unspecified Chronic low back pain with sciatica, sciatica laterality unspecified, unspecified back pain laterality documented in this encounter Care Teams Infantry Operations Specialist Relationship Specialty Start Date End Date Clare Mo MD [address] [place] [address] PCP - General Internal Medicine 03/17/17 documented as of this encounter
--- OUTSIDE RECORDS SUMMARY | 2025-08-25 19:21 | XMS_ITS | Encounter Summary ---
Author Organization [employer] Address [address] [place] [address] Care Team Providers Care Director Of Health Care Marketing Name Role Phone Clare Mo MD Primary Care Provider +1- [phone] Encounter Details Date Type Department Care Team ([facility] Contact Info) Description 02/12/2023 Orders Only [facility] CHC MED & PEDS [address] [place] [address] Clare Mo MD [address] [place] [address] Chronic low back pain with sciatica, sciatica [...] Encounters Date Type Department Care Team ([facility] Contact Info) Description 08/30/2025 3:30 PM EST Office Visit [facility] CH[facility] MED & PEDS [address] [place], [place] [phone] Clare Mo MD [address] [place] [address] 10/08/2025 10:30 AM EST Telemedicine [facility] CHC MED & PEDS [address] [place], [place] [phone] Evelina Pimentel RN [address] [place], [place] [phone] documented as of this encounter Procedures Procedure Name Priority Date/Time Associated Diagnosis Comments PAP SMEAR Routine 03/08/2023 12:18 PM EDT Chronic low back pain with sciatica, sciatica laterality unspecified, unspecified back pain laterality documented in this encounter Results * Pap Smear (03/08/2023 12:18 PM EDT) 03/08/2023 12:1 8 PM EDT 03/10/2023 8:55 AM EDT [facility] - 03/27/2023 3:23 PM EDT ----- ------- Name: Remington MackenzieQuinton lindsayMay Age/Sex: 42/F : 1980 Unit#: [id number] Attend Dr: Jeff William MD Re03/08/23 Status: DEP REF Location: HO.LNP Disch: ----- ------- SPEC : [id number] RECD: 03/10/23 STATUS: PO LYNCH NUM: [id number] BRANDON: 03/08/23-1218 [facility] DR: Jeff William MD ENTERED: 03/10/23 SP TYPE: Pap Smr OTHR DR: Clare Mo MD ORDERED: Pap Smear Interpretation Satisfactory for evaluation. No endocervical cells seen. Negative for intraepithelial lesion or malignancy. HPV mRNA E6/E7: NOT DETECTED This assay detects E6/E7 viral messenger RNA (mRNA) from 14 high-risk HPV types (16, 18, 31, 33, 35, 39, 45, 51, 52, 56, 58, 59, 66, 68) HPV testing performed by [employer], [place], [place]. See reference laboratory portion of the EMR for entire report. Clinical Information LMP: 03/05/23 Previous PAP test: Unknown date/findings Material Received ThinPrep-Cervical Copies To: Clare Mo MD [address] [place] [phone] Jeff William MD [address] [place] [address] [address] ----- ------- Signed (signature on file) Alondra Flores Tyrell 03/27/23 1523 ----- ------- END OF REPORT [facility] External Provider LAB CYT OLOGY ORDERABLES Final Result [facility] [address] [place] [address] [phone] documented in this encounter Visit Diagnoses Diagnosis Chronic low back pain with sciatica, sciatica laterality unspecified, unspecified back pain laterality documented in this encounter Care Teams Director Of Health Care Marketing Relationship Specialty Start Date End Date Clare Mo MD [address] [place] [address] PCP - General Internal Medicine 03/17/17 documented as of this encounter
--- OUTSIDE RECORDS SUMMARY | 2025-08-25 19:21 | XMS_ITS | Encounter Summary ---
Author Organization [employer] Address [address] [place] [address] Care Team Providers Care Research Program Assistant Name Role Phone Clare Mo MD Primary Care Provider +1- [phone] Reason for Visit * Reason Comments Med Refill Encounter Details Date Type Department Care Team ([facility] Contact Info) Description 03/09/2023 Refill [facility] MED & PEDS 505 [place] [address] Clare Mo MD 505 [place] [address] Chronic low back pain with sciatica, sciatica [...] Care Team ([facility] Contact Info) Description 08/30/2025 3:30 PM EST Office Visit [facility] MED & PEDS 505 [place] [address] Clare Mo MD 505 [place] [address] 10/08/2025 10:[address] [facility] MED & PEDS 505 [place] [address] Evelina Pimentel, WILBER 505 [place] [address] documented as of this encounter Visit Diagnoses Diagnosis Chronic low back pain with sciatica, sciatica laterality unspecified, unspecified back pain laterality Anxiety Anxiety state, unspecified documented in this encounter Care Teams Research Program Assistant Relationship Specialty Start Date End Date Clare Mo MD 505 [place] [address] PCP - General Internal Medicine 03/17/17 documented as of this encounter
--- OUTSIDE RECORDS SUMMARY | 2025-08-25 19:21 | XMS_ITS | Encounter Summary ---
Author Organization [employer] Address [address] [facility] [place] [address] Care Team Providers Care Sharepoint Consultant Name Role Phone Clare Mo MD Primary Care Provider +1- [phone] Reason for Visit * Reason Onset Date Comments Medication Question 01/31/2025 Encounter Details Date Type Department Care Team ([facility] Contact Info) Description 01/31/2025 Telephone [facility] MEDICINE [address] [place] [address] Clare Mo MD 505 [place], [place] [phone] Medication Question Social History Tobacco Use Types [...] can't take the medication every 8 hours. [phone] documented in this encounter Plan of Treatment Upcoming Encounters Date Type Department Care Team (Late st Contact Info) Description 08/30/2025 3:30 PM EST Office [facility] MED & PEDS 505 [place] [address] Clare Mo MD 505 [place] [address] 10/08/2025 10:30 AM EST Telemedicine [facility] MED & PEDS 505 [place] [address] Evelina Pimentel RN 505 [place] [address] documented as of this encounter Visit Diagnoses Not on filedocumented in this encounter Care Teams Sharepoint Consultant Relationship Specialty Start Date End Date Clare Mo MD 505 [place] [address] PCP - General Internal Medicine 03/17/17 documented as of this encounter
--- OUTSIDE RECORDS SUMMARY | 2025-08-25 19:21 | XMS_ITS | Encounter Summary ---
Author Organization [employer] Address 75 [facility] [place] [address] Care Team Providers Care Business Intelligence Reporting Analyst Name Role Phone Clare Mo MD Primary Care Provider +1- [phone] Reason for Visit * Reason Onset Date Comments Med Refill 02/05/2025 Encounter Details Date Type Department Care Team ([facility] st Contact Info) Description 02/05/2025 Refill [facility] MEDICINE [address] [place] [address] Clare Mo MD 505 [place] [address] Foraminal stenosis of cervical region Social History [...] [facility] MED & PEDS 505 [place] [address] Clare Mo MD 505 [place] [address] 10/08/2025 10:30 AM EST Telemedicine [facility] MED & PEDS 505 [place] [address] Evelina Pimentel, WILBER 505 [place] [address] documented as of this encounter Visit Diagnoses Diagnosis Foraminal stenosis of cervical region documented in this encounter Care Teams Business Intelligence Reporting Analyst Relationship Specialty Start Date End Date Clare Mo MD 505 [place] [address] PCP - General Internal Medicine 03/17/17 documented as of this encounter
--- OUTSIDE RECORDS SUMMARY | 2025-08-25 19:21 | XMS_ITS | Encounter Summary ---
Author Organization [employer] Address 75 [facility] [address] [address] Care Team Providers Care Escrow Representative Name Role Phone Clare Mo MD Primary Care Provider +1- [phone] Reason for Visit * Reason Onset Date Comments error 03/21/2025 Encounter Details Date Type Department Care Team ([facility] Contact Info) Description 03/21/2025 Telephone [facility] MEDICINE 230 [place] [address] Clare Mo MD 505 [place], [place] [phone] error Social History Tobacco Use Types Packs/Day [...] 3:30 PM EST Office Visit [facility] MED & PEDS 505 [place] [address] Clare Mo MD 505 [place] [address] 10/08/2025 10:30 AM EST Telemedicine [facility] MED & PEDS 505 [place] [address] Evelina Pimentel, RN 505 [place] [address] documented as of this encounter Visit Diagnoses Not on filedocumented in this encounter Care Teams Escrow Representative Relationship Specialty Start Date End Date Clare Mo MD 505 [place] [address] PCP - General Internal Medicine 03/17/17 documented as of this encounter
--- OUTSIDE RECORDS SUMMARY | 2025-08-25 19:21 | XMS_ITS | Encounter Summary ---
Author Organization [employer] Address 75 [facility] 7 [place] [address] Care Team Providers Care Turbine Engineer Name Role Phone Clare Mo MD Primary Care Provider +1 [phone] Encounter Details Date Type Department Care Team ([facility] Contact Info) Description 02/06/2025 Orders Only [facility] [address] [place], [place] [phone] Provider, MD Radhika Social History Tobacco Use [...] Description 08/30/2025 3:30 PM EST Office Visit [facility] MED & PEDS 505 [place] [address] Clare Mo MD 505 [place] [address] 10/08/2025 10:30 AM EST Telemedicine [facility] MED & PEDS 505 [place] [address] Evelina Pimentel RN 505 [place] [address] documented as of this encounter Procedures Procedure [...] on filedocumented in this encounter Care Teams Turbine Engineer Relationship Specialty Start Date End Date Clare Mo MD 505 [place] [address] PCP - General Internal Medicine 03/17/17 documented as of this encounter
--- OUTSIDE RECORDS SUMMARY | 2025-08-25 19:21 | XMS_ITS ---
Author Organization [employer] Address [address] [place] [address] [place] [address] Care Team Providers Care Hand Winder Name Role Phone Clare Mo MD Primary Care Provider SHEET ROCKER Status:Enrolled (Active) Start date:01/06/2023 Enrollment date:01/06/2023 Case Team Name Relationship Phone Evelina Pimenetl RN(Responsible Staff) Registered Nurse Continued Care and Services Coordination
--- OUTSIDE RECORDS SUMMARY | 2025-08-25 19:21 | XMS_ITS | Encounter Summary ---
Author Organization [employer] Address 75 [facility] 7 [place] [address] Care Team Providers Care Siebel Architect Name Role Phone Clare Mo MD Primary Care Provider +1- [phone] Encounter Details Date Type Department Care Team ([facility] Contact Info) Description 03/02/2025 Orders Only [facility] MED & PEDS 505 [place], [place] [phone] Clare Mo MD 505 [place], [place] [phone] Hypoproteinemia (CMS/HCC) (Primary Dx); Transaminitis Social History [...] 3:30 PM EST Office Visit [facility] MED & PEDS 505 [place] [address] Clare Mo MD 505 [place] [address] 10/08/2025 10:30 AM EST Telemedicine [facility] MED & PEDS 505 [place] [address] Evelina Pimentel RN 505 [place], [place] [phone] documented as of this encounter Procedures Procedure Name Priority Date/Time Associated Diagnosis Comments COMPREHENSIVE METABOLIC PANEL Routine 04/10/2025 11:39 AM EDT Hypoproteinemia (CMS/HCC) Transaminitis documented in this encounter Results * (ABNORMAL) Comprehensive Metabolic Panel (04/10/2025 11:39 AM EDT) Sodium 141 135 - 145 mmol/L [facility] Potassium 3.7 3.3 - 5.1 mmol/L [facility] Chloride 106 96 - 108 mmol/L [facility] Carbon Dioxide 26 22 - 29 mmol/L [facility] Anion Gap 13 12 - 20 [facility] Urea Nitrogen (BUN) 14 9 - 16 mg/dL [facility] Creatinine, Serum 0.96 0.5 - 1.4 mg/dL [facility] Estimated Glomerular Filt Rate >60 [facility] Comment:Chronic Kidney Disea se: Estimated GFR < 60 mL/min/[id number] Kidney Disease: Estimated GFR < 15 mL/min/1.73m2 Glucose 120(H) 60 - 115 mg/dL [facility] Calcium 9.4 8.4 - 10.2 mg/dL [facility] Bilirubin, Total 0.4 0.0 - 1.0 mg/dL [facility] Aspartate Amino Transferase 24 5 - 31 U/L [facility] Alanine Aminotransferase 28 0 - 31 U/L [facility] Total Protein 7.6 6.5 - 8.0 g/dL [facility] Albumin Level 4.7 3.5 - 5.0 g/dL [facility] Alkaline Phosphatase 69 39 - 117 U/L [facility] Blood Venous blood specimen / Unknown 04/10/2025 11:39 AM EDT 04/10/2025 2:04 PM EDT us Clare Mo MD LAB BLOOD ORDERABLES Final Result [facility] [address] [place] [address] [phone] documented in this encounter Visit Diagnoses Diagnosis Hypoproteinemia (CMS/HCC)- Primary Other disorders of plasma protein metabolism Transaminitis Nonspecific elevation of levels of transaminase or lactic acid dehydrogenase (LDH) documented in this encounter Care Teams Siebel Architect Relationship Specialty Start Date End Date Clare Mo MD [address] [place] [address] PCP - General Internal Medicine 03/17/17 documented as of this encounter
--- OUTSIDE RECORDS SUMMARY | 2025-08-25 19:21 | XMS_ITS | Encounter Summary ---
Author Organization [employer] Address 75 [facility] [place] [address] Care Team Providers Care Flavoring Oil Filterer Name Role Phone Clare Mo MD Primary Care Provider +1- [phone] Reason for Visit * Reason Comments Med Refill Encounter Details Date Type Department Care Team ([facility] Contact Info) Description 03/21/2025 Refill [facility] MED & PEDS [address] [place], [place] [phone] Clare Mo MD 505 [place] [address] Anxiety Social History Tobacco Use Types Packs/Day [...] Upcoming Encounters Date Type Department Care Team ([facility] st Contact Info) Description 08/30/2025 3:30 PM EST Office Visit [facility] MED & PEDS 505 [place] [address] Clare Mo MD 505 [place] [address] 10/08/2025 10:30 AM EST Telemedicine [facility] MED & PEDS [address] [place] [address] Evelina Pimentel, RN 505 [place] [address] documented as of this encounter Visit Diagnoses Diagnosis Anxiety Anxiety state, unspecified documented in this encounter Care Teams Flavoring Oil Filterer Relationship Specialty Start Date End Date Clare Mo MD 505 [place] [address] PCP - General Internal Medicine 03/17/17 documented as of this encounter
--- OUTSIDE RECORDS SUMMARY | 2025-08-25 19:21 | XMS_ITS | Encounter Summary ---
Author Organization [employer] Address 75 [facility] 7[place] [address] Care Team Providers Care Coagulating Bath Mixer Name Role Phone Clare Mo MD Primary Care Provider +1- [phone] Reason for Visit * Reason Onset Date Comments Med Refill 11/28/2024 Encounter Details Date Type Department Care Team ([facility] st Contact Info) Description 11/28/2024 Telephone [facility] MEDICINE 230 [place] [address] Clare Mo MD 505 [place], [place] [phone] Med Refill Social History Tobacco Use Types [...] 10-325 MG tablet To be sent to: [facility] - [place], [place] - [address] [place] [address] documented in this encounter Plan of Treatment Upcoming Encounters Date Type Department Care Team (Late st Contact Info) Description 08/30/2025 3:30 PM EST Office Visit [facility] MED & PEDS [address] [place] [address] Clare Mo MD 505 [place] [address] 10/08/2025 10:30 AM EST Telemedicine [facility] MED & PEDS [address] [place] [address] Evelina Pimentel RN 505 [place] [address] documented as of this encounter Visit Diagnoses Not on filedocumented in this encounter Care Teams Coagulating Bath Mixer Relationship Specialty Start Date End Date Clare Mo MD 505 [place] [address] PCP - General Internal Medicine 03/17/17 documented as of this encounter
--- OUTSIDE RECORDS SUMMARY | 2025-08-25 19:21 | XMS_ITS | Encounter Summary ---
Author Organization [email or web address] Address 75 [facility] 7t [place] [address] Care Team Providers Care Area Field Person Name Role Phone Clare Mo MD Primary Care Provider +1- [phone] Encounter Details Date Type Department Care Team ([facility] Contact Info) Description 06/20/2024 Orders Only [facility] [address] [place] [address] Clare Mo MD 505 [place] [address] Chronic low back pain with sciatica, sciatica [...] [facility] MED & PEDS 505 [place] [address] Clare Mo MD 505 [place] [address] 10/08/2025 10:30 AM EST Telemedicine [facility] MED & PEDS 505 [place] [address] Evelina Pimentel, WILBER 505 [place] [address] documented as of this encounter Visit Diagnoses Diagnosis Chronic low back pain with sciatica, sciatica laterality unspecified, unspecified back pain laterality Anxiety Anxiety state, unspecified documented in this encounter Care Teams Area Field Person Relationship Specialty Start Date End Date Clare Mo MD 505 [place] [address] PCP - General Internal Medicine 03/17/17 documented as of this encounter
--- OUTSIDE RECORDS SUMMARY | 2025-08-25 19:21 | XMS_ITS | Encounter Summary ---
Author Organization [email or web address] Address [address] [facility] 7[place] [address] Care Team Providers Care Statistical Analyst Name Role Phone Clare Mo MD Primary Care Provider +1- [phone] Reason for Visit * Reason Onset Date Comments Med Refill 05/29/2024 Encounter Details Date Type Department Care Team ([facility] st Contact Info) Description 05/29/2024 Telephone [facility] MEDICINE 230 [place] [address] Clare Mo MD 505 [place] [address] Med Refill Social History Tobacco Use Types [...] tablet To be sent to: [facility] - [place], [place] - [address] [place] [address] documented in this encounter Plan of Treatment Upcoming Encounters Date Type Department Care Team (Late st Contact Info) Description 08/30/2025 3:30 PM EST Office Visit [facility] MED & PEDS 505 [place] [address] Clare Mo MD 505 [place] [address] 10/08/2025 10:30 AM EST Telemedicine [facility] MED & PEDS 505 [place] [address] Evelina Pimentel, WILBER 505 [place] [address] documented as of this encounter Visit Diagnoses Not on filedocumented in this encounter Care Teams Statistical Analyst Relationship Specialty Start Date End Date Clare Mo MD 505 [place] [address] PCP - General Internal Medicine 03/17/17 documented as of this encounter
--- OUTSIDE RECORDS SUMMARY | 2025-08-25 19:21 | XMS_ITS | Encounter Summary ---
Author Organization [employer] Address 75 [facility] 7 [place] [address] Care Team Providers Care Shoe Worker Name Role Phone Clare Mo MD Primary Care Provider +1- [phone] Encounter Details Date Type Department Care Team ([facility] Contact Info) Description 01/24/2025 Orders Only [facility] MED & PEDS [address] [place], [place] [phone] Clare Mo MD 505 [place] [address] Neck pain Social History Tobacco Use Types [...] 3:30 PM EST Office Visit [facility] MED & PEDS [address] [place] [address] Clare Mo MD 505 [place] [address] 10/08/2025 10:30 AM EST Telemedicine [facility] MED & PEDS 505 [place] [address] Evelina Pimentel, WILBER 505 [place] [address] documented as of this encounter Visit Diagnoses Diagnosis Neck pain Cervicalgia documented in this encounter Care Teams Shoe Worker Relationship Specialty Start Date End Date Clare Mo MD 505 [place] [address] PCP - General Internal Medicine 03/17/17 documented as of this encounter
--- OUTSIDE RECORDS SUMMARY | 2025-08-25 19:21 | XMS_ITS | Encounter Summary ---
Author Organization [email or web address] Address 75 [facility] 7t [place] [address] Care Team Providers Care Strong Nitric Operator Name Role Phone Clare Mo MD Primary Care Provider +1 [phone] Encounter Details Date Type Department Care Team ([facility] Contact Info) Description 02/27/2025 Orders Only [facility] MED & PEDS [address] [place], [place] [phone] Provider, MD Radhika Social History Tobacco Use [...] [facility] MED & PEDS 505 [place] [address] Clare Mo MD 505 [place] [address] 10/08/2025 10:30 AM EST Telemedicine [facility] MED & PEDS 505 [place] [address] Evelina Pimentel RN 505 [place] [address] documented as of this encounter Procedures Procedure [...] on filedocumented in this encounter Care Teams Strong Nitric Operator Relationship Specialty Start Date End Date Clare Mo MD 505 [place] [address] PCP - General Internal Medicine 03/17/17 documented as of this encounter
--- OUTSIDE RECORDS SUMMARY | 2025-08-25 19:21 | XMS_ITS | Encounter Summary ---
Author Organization [employer] Address [address] [place] [address] Care Team Providers Care Director Of Student Aid Name Role Phone Clare Mo MD Primary Care Provider +1- [phone] Encounter Details Date Type Department Care Team (Latest Contact Info) Description 08/16/2020 Abstract [facility] CONVERSIONS Dental, Provider, DDS Social History [...] Upcoming Encounters Date Type Department Care Team ([facility] st Contact Info) Description 08/30/2025 3:30 PM EST [facility] 505 [place] [address] Clare Mo MD 505 [place] [address] 10/08/2025 10:30 AM EST Telemedicine [facility] 505 [place] [address] Evelina Pimentel RN 505 [place] [address] documented as of this encounter Visit Diagnoses Not on filedocumented in this encounter Care Teams Director Of Student Aid Relationship Specialty Start Date End Date Clare Mo MD [address] [place] [address] PCP - General Internal Medicine 03/17/17 documented as of this encounter
--- OUTSIDE RECORDS SUMMARY | 2025-08-25 19:21 | XMS_ITS | Encounter Summary ---
Author Organization [employer] Address 75 [facility] [place] [address] Care Team Providers Care Director Craft Center Name Role Phone Clare Mo MD Primary Care Provider +1- [phone] Reason for Visit * Reason Onset Date Comments Med Refill 11/10/2024 Encounter Details Date Type Department Care Team ([facility] st Contact Info) Description 11/10/2024 Telephone [facility] MEDICINE 230 [place] [address] Clare Mo MD 505 [place] [address] Med Refill Social History Tobacco Use Types [...] 1 MG tablet To be sent to: [facility] - [place], [place] - [address] [place] [address] ' documented in this encounter Plan of Treatment Upcoming Encounters Date Type Department Care Team (Late st Contact Info) Description 08/30/2025 3:30 PM EST Office Visit [facility] MED & PEDS 505 [place] [address] Clare Mo MD 505 [place] [address] 10/08/2025 10:30 AM EST Telemedicine [facility] MED & PEDS 505 [place] [address] Evelina Pimentel, WILBER 505 [place] [address] documented as of this encounter Visit Diagnoses Not on filedocumented in this encounter Care Teams Director Craft Center Relationship Specialty Start Date End Date Clare Mo MD 505 [place] [address] PCP - General Internal Medicine 03/17/17 documented as of this encounter
--- OUTSIDE RECORDS SUMMARY | 2025-08-25 19:21 | XMS_ITS | Encounter Summary ---
Author Organization [employer] Address 75 [facility] 7 [place] [address] Care Team Providers Care Film Rental Clerk Name Role Phone Clare Mo MD Primary Care Provider +1- [phone] Reason for Visit * Reason Comments Med Refill Encounter Details Date Type Department Care Team ([facility] st Contact Info) Description 02/06/2025 Refill [facility] MEDICINE 230 [place] [address] Clare Mo MD 505 [place], [place] [phone] Foraminal stenosis of cervical region Social History [...] Description 08/30/2025 3:30 PM EST Office Visit [facility] MED & PEDS 505 [place] [address] Clare Mo MD 505 [place] [address] 10/08/2025 10:30 AM EST Telemedicine [facility] MED & PEDS [address] [place] [address] Evelina Pimentel, RN 505 [place] [address] documented as of this encounter Visit Diagnoses Diagnosis Foraminal stenosis of cervical region documented in this encounter Care Teams Film Rental Clerk Relationship Specialty Start Date End Date Clare Mo MD 505 [place] [address] PCP - General Internal Medicine 03/17/17 documented as of this encounter
--- OUTSIDE RECORDS SUMMARY | 2025-08-25 19:21 | XMS_ITS | Encounter Summary ---
Author Organization [email or web address] Address 75 [facility] 7[facility] [place] [address] Care Team Providers Care Retort Setter Name Role Phone Clare Mo MD Primary Care Provider +1 [phone] Reason for Visit * Reason Onset Date [...] [facility] st Contact Info) Description 09/22/2022 Telephone [facility] [address] [place] [address] Shukri, Seema [address] [place], [place] [phone] treatment (Patient called in looking to have [...] Patient seemed to understand and is willing DR documented in this encounter Plan of Treatment Upcoming Encounters Date Type Department Care Team (Late st Contact Info) Description 08/30/2025 3:30 PM EST Office Visit [facility] MED & PEDS 505 [place] [address] Clare Mo MD 505 [place] [address] 10/08/2025 10:30 AM EST Telemedicine [facility] MED & PEDS 505 [place] [address] Evelina Pimentel RN 505 [place] [address] documented as of this encounter Visit Diagnoses Not on filedocumented in this encounter Care Teams Retort Setter Relationship Specialty Start Date End Date Clare Mo MD 505 [place] [address] PCP - General Internal Medicine 03/17/17 documented as of this encounter
--- OUTSIDE RECORDS SUMMARY | 2025-08-25 19:21 | XMS_ITS | Clinical Summary ---
Author Organization [facility] Address [address] [place] [address] Phone Care Team Providers Care Display Manager Name Role Phone Clare Mo MD Primary Care Provider +1 -[phone] Allergies No known active allergies Medications ALPRAZolam [...] day. TEST BLOOD SUGAR 5 Active FreeStyle Jennings Lite monitoring kit by extracorporeal route 1 [...] had x-rays of the hip performed at [facility] on 08/01/24. They revealed [...] arms overhead, she had to ask the medical delivery technician to help her move her arms [...] residual retropharyngeal swelling on her x-rays from [place]. I am putting her on low-dose Decadron [...] dynamic views performed when she went to [facility]. Assessment & Plan (02/14/2025 9:41 PM EDT): [...] Dr. Suggs when she is back from [place] (March 23). I asked her to call [...] told her she likely has fibromyalgia. Saw manufacturing design engineer, was started on vitamin D, magnesium, vitamin [...] looking forward to starting treatment to [facility] hopefully this will provide her some relief. [...] lumbar cortisone injections back in 2020 at [facility]. She has been walking with a walker. Ms. Macedo describes left low back, buttock, hip and foot pain. She is having to walk with a walker, feels her balance is poor. We can check updated lumbar spine MRI with and without contrast to rule out recurrent disc herniation/nerve root compression. She would also like to be referred back to [facility] to see if they would offer left SI joint injection, she has tenderness over the SI joint, pain in the SI joint region with external hip rotation. She will go for the hip x-rays (already ordered by PCP) this coming week. We will follow-up with her after imaging is complete. Encounters Date Type Department Care Team Description 08/02/2025 Telephone [facility] [place] - [address] [place] [address] [place], [place] from Last 3 Months Immunizations Immunization [...] this topic Medical Devices Implanted Type Area Stereotyper Device Identifier Shelf Expiration Date Model / Serial / Lot L-Asr Tay Canc [id number] Fd Fee - [id number] - [id number] Implanted:Qty : 1 on 02/01/2025 by Keli Suggs MD at [facility] [employer] Bone N/A: Spine Cervical [employer] 01/27/2026 [id number] / [id number] / [id number] L-Asr Tay Canc [id number] Fd Fee - [id number] - [id number] Implanted:Qty : 1 on 02/01/2025 by Keli Suggs MD at [facility] [employer] Bone N/A: Spine Cervical [employer] 04/22/2026 [id number] / [id number] / [id number] Powder Surgifoam Absorb Gel - Sna - [id number] Implanted:Qty : 1 on 02/01/2025 by Keli Suggs MD at [facility] [employer] N/A: Spine Cervical [employer] 10/26/20261977 / NA / [id number] Plate Spin Cerv Ant Zevo 35mm - Sna - [id number] Implanted:Qty : 1 on 02/01/2025 by Keli Suggs MD at [facility] Spinal Hardware N/A: Spine Cervical [employer] SOFAMOR DANEK [id number] / NA / NA Screw Cerv [address] 13x3.5mm - Sna - [id number] Implanted:Qty : 6 on 02/01/2025 by Keli Suggs MD at [facility] Spinal Hardware N/A: Spine Cervical [employer] SOFAMOR [employer]ANE[employer] [id number] / NA / NA Insurance MEDICARE [facility] MEDICARE Member Subscriber Plan / Payer (Ef fective 2025-Present) Name:ANDREA MACEDO Relation to Subscriber:Self Name:Andrea Macedo Payer ID:[id number] Group ID:[id number] Type:Not on file Address: [address] [place] [address] Advance Directives * Full Code - Default [...] currently active code status orders. Care Teams Display Manager Relationship Specialty Start Date End Date Clare Mo MD [address] [place] [address] PCP - General 01/11/24
--- OUTSIDE RECORDS SUMMARY | 2025-08-25 19:21 | XMS_ITS | Encounter Summary ---
Author Organization [employer] Address 75 [facility] [address], [place] [address] Care Team Providers Care Work Environment Safety Inspector Name Role Phone Clare Mo MD Primary Care Provider +1- [phone] Reason for Visit * Reason Onset Date Comments Nurse Triage 01/03/2025 Encounter Details Date Type Department Care Team ([facility] Contact Info) Description 01/03/2025 Telephone [facility] MEDICINE [address] [place] [address] Clare Mo MD [address] [place] [address] Nurse Triage Social History Tobacco Use Types [...] Office Visit [facility] MED & PEDS [address] [place] [address] Clare oM MD 505 [place] [address] 10/08/2025 10:30 AM EST Telemedicine [facility] [address] [place] [address] Evelina Pimentel, WILBER 505 [place] [address] documented as of this encounter Visit Diagnoses Not on filedocumented in this encounter Care Teams Work Environment Safety Inspector Relationship Specialty Start Date End Date Clare Mo MD [address] [place] [address] PCP - General Internal Medicine 03/17/17 documented as of this encounter
--- OUTSIDE RECORDS SUMMARY | 2025-08-25 19:21 | XMS_ITS | Encounter Summary ---
Author Organization [employer] Address 75 [facility] 7 [place] [address] Care Team Providers Care Newspaper Photo Editor Name Role Phone Clare Mo MD Primary Care Provider +1- [phone] Encounter Details Date Type Department Care Team ([facility] Contact Info) Description 07/19/2025 Orders Only [facility] MED & PEDS [address] [place], [place] [phone] Clare Mo MD [address] [place], [place] [phone] Anxiety (Primary Dx) Social History Tobacco Use [...] 3:30 PM EST Office Visit [facility] [address] [place] [address] Clare Mo MD [address] [place] [address] 10/08/2025 10:30 AM EST Telemedicine [facility] MED [facility] [address] [place] [address] Evelina Pimentel, WILBER 505 [place] [address] documented as of this encounter Visit Diagnoses Diagnosis Anxiety- Primary Anxiety state, unspecified documented in this encounter Care Teams Newspaper Photo Editor Relationship Specialty Start Date End Date Clare Mo MD [address] [place] [address] PCP - General Internal Medicine 03/17/17 documented as of this encounter
--- OUTSIDE RECORDS SUMMARY | 2025-08-25 19:21 | XMS_ITS | Encounter Summary ---
Author Organization [employer] Address [address] [place] [address] Care Team Providers Care Extrusion Press Supervisor Name Role Phone Clare Mo MD Primary Care Provider +1- [phone] Encounter Details Date Type Department Care Team ([facility] Contact Info) Description 05/14/2023 Orders Only [facility] MED & PEDS [address] [place] [address] Clare Mo MD 505 [place] [address] Pain in both hands (Primary Dx); Chronic [...] Upcoming Encounters Date Type Department Care Team ([facility] Contact Info) Description 08/30/2025 3:30 PM EST Office Visit [facility] MED & PEDS [address] [place], [place] [phone] Clare Mo MD [address] [place], [place] [phone] 10/08/2025 10:30 AM EST Telemedicine [facility] MED & PEDS [address] [place] [address] Evelina Pimentel, RN 505 [place] [address] documented as of this encounter Visit Diagnoses Diagnosis Pain in both hands- Primary Chronic migraine without aura without status migrainosus, not intractable Anxiety Anxiety state, unspecified Chronic midline low back pain with sciatica, sciatica laterality unspecified documented in this encounter Care Teams Extrusion Press Supervisor Relationship Specialty Start Date End Date Clare Mo MD [address] [place] [address] PCP - General Internal Medicine 03/17/17 documented as of this encounter
--- OUTSIDE RECORDS SUMMARY | 2025-08-25 19:21 | XMS_ITS | Encounter Summary ---
Author Organization [employer] Address 75 [facility] 7 [place] [address] Care Team Providers Care Emergency Technician Name Role Phone Clare Mo MD Primary Care Provider +1- [phone] Encounter Details Date Type Department Care Team ([facility] Contact Info) Description 12/18/2024 Orders Only [facility] CH[facility] MED & PEDS [address] [place], [place] [phone] Clare Mo MD 505 [place] [address] Social History Tobacco Use Types Packs/Day Years [...] 3:30 PM EST Office Visit [facility] MED & PEDS [address] [place] [address] Clare Mo MD 505 [place] [address] 10/08/2025 10:30 AM EST Telemedicine [facility] MED & PEDS [address] [place] [address] Evelina Pimentel RN 505 [place] [address] documented as of this encounter Visit Diagnoses Not on filedocumented in this encounter Care Teams Emergency Technician Relationship Specialty Start Date End Date Clare Mo MD 505 [place] [address] PCP - General Internal Medicine 03/17/17 documented as of this encounter
--- OUTSIDE RECORDS SUMMARY | 2025-08-25 19:21 | XMS_ITS | Encounter Summary ---
Author Organization [employer] Address [address] [place] [address] Care Team Providers Care Supervisor Welding Equipment Repairer Name Role Phone Clare Mo MD Primary Care Provider +1- [phone] Reason for Visit * Reason Onset Date Comments Med Refill 03/09/2023 Encounter Details Date Type Department Care Team ([facility] Contact Info) Description 03/09/2023 Telephone [facility] MED & PEDS [address] [place] [address] Clare Mo MD [address] [place] [address] Med Refill Social History Tobacco Use Types [...] (Xanax) 1 MG tablet Please sent to [facility] - [address] documented in this encounter Plan of Treatment Upcoming Encounters Date Type Department Care Team ([facility] st Contact Info) Description 08/30/2025 3:30 PM EST Office Visit [facility] MED & PEDS [address] [place] [address] Clare Mo MD [address] [place] [address] 10/08/2025 10:30 AM EST Telemedicine [facility] MED & PEDS [address] [place] [address] Evelina Pimentel RN 505 [place] [address] documented as of this encounter Visit Diagnoses Not on filedocumented in this encounter Care Teams Supervisor Welding Equipment Repairer Relationship Specialty Start Date End Date Clare Mo MD [address] [place] [address] PCP - General Internal Medicine 03/17/17 documented as of this encounter
--- OUTSIDE RECORDS SUMMARY | 2025-08-25 19:21 | XMS_ITS | Encounter Summary ---
Author Organization [employer] Address 75 [facility] [address] [place] [address] Care Team Providers Care Video Surveillance Technician Name Role Phone Clare Mo MD Primary Care Provider +1- [phone] Reason for Visit * Reason Onset Date Comments Med Refill 01/02/2025 Encounter Details Date Type Department Care Team ([facility] st Contact Info) Description 01/02/2025 Refill [facility] MED & PEDS [address] [place] [address] Clare Mo MD [address] [place] [address] Foraminal stenosis of cervical region (Primary Dx); [...] Upcoming Encounters Date Type Department Care Team ([facility] st Contact Info) Description 08/30/2025 3:30 PM EST Office Visit [facility] MED & PEDS [address] [place] [address] Clare Mo MD [address] [place] [address] 10/08/2025 10:30 AM EST Telemedicine [facility] MED & PEDS [address] [place] [address] Evelina Pimentel, WILBER 505 [place] [address] documented as of this encounter Visit Diagnoses Diagnosis Foraminal stenosis of cervical region- Primary Anxiety Anxiety state, unspecified documented in this encounter Care Teams Video Surveillance Technician Relationship Specialty Start Date End Date Clare Mo MD [address] [place] [address] PCP - General Internal Medicine 03/17/17 documented as of this encounter
--- OUTSIDE RECORDS SUMMARY | 2025-08-25 19:21 | XMS_ITS | Encounter Summary ---
Author Organization [employer] Address [address] [place] [address] Care Team Providers Care Architectural Technologist Name Role Phone Clare Mo MD Primary Care Provider +1- [phone] Reason for Visit * Reason Onset Date Comments Med Refill 12/18/2024 Medications 12/18/2024 Encounter Details Date Type Department Care Team ([facility] st Contact Info) Description 12/18/2024 Refill [facility] MED & PEDS [address] [place] [address] Clare Mo MD [address] [place] [address] Chronic low back pain with sciatica, sciatica [...] unable to fill out a report in [place], [place] since the incident (TC 12/07/24) happened in [place]. Pt stated she can go to police station and lie that incident happened in [place] to make us happy . Pt states [...] Description 08/30/2025 3:30 PM EST Office Visit [facility] MED & PEDS [address] [place] [address] Clare Mo MD [address] [place] [address] 10/08/2025 10:30 AM EST Telemedicine [facility] MED & PEDS [address] [place] [address] Evelina Pimentel RN 505 [place] [address] documented as of this encounter Visit Diagnoses Diagnosis Chronic low back pain with sciatica, sciatica laterality unspecified, unspecified back pain laterality documented in this encounter Care Teams Architectural Technologist Relationship Specialty Start Date End Date Clare Mo MD [address] [place] [address] PCP - General Internal Medicine 03/17/17 documented as of this encounter
--- OUTSIDE RECORDS SUMMARY | 2025-08-25 19:21 | XMS_ITS | Encounter Summary ---
Author Organization [employer] Address 75 [facility] 7 [place] [address] Care Team Providers Care Safety Attendant Name Role Phone Clare Mo MD Primary Care Provider +1- [phone] Reason for Visit * Reason Comments Med Refill Encounter Details Date Type Department Care Team ([facility] st Contact Info) Description 10/11/2023 Refill [facility] MEDICINE [address] [place] [address] Clare Mo MD [address] [place], [place] [phone] Chronic low back pain, unspecified back pain [...] the past 12 months, has t he [employer], gas, oil or water company threatened to [...] 3:30 PM EST Office Visit [facility] MED & PEDS [address] [place] [address] Clare Mo MD 505 [place] [address] 10/08/2025 10:30 AM EST Telemedicine [facility] MED & PEDS [address] [place] [address] Evelina Pimentel RN 505 [place] [address] documented as of this encounter Visit Diagnoses Diagnosis Chronic low back pain, unspecified back pain laterality, unspecified whether sciatica present documented in this encounter Care Teams Safety Attendant Relationship Specialty Start Date End Date Clare Mo MD [address] [place] [address] PCP - General Internal Medicine 03/17/17 documented as of this encounter
--- OUTSIDE RECORDS SUMMARY | 2025-08-25 19:21 | XMS_ITS | Encounter Summary ---
Author Organization [employer] Address [address] [place] [address] Care Team Providers Care Pile Driver Operator Barge Mounted Name Role Phone Clare Mo MD Primary Care Provider +1 [phone] Reason for Referral * Imaging (Routine) - Closed Specialty Diagnoses / Procedures Referred By Contac t Referred To Contact Radiology Diagnoses Low back pain at multiple sites Procedures MR Lumbar Spine w/o Contrast Clare Mo MD [address] [place], [place] Phone: tel: fax: [facility] [address] [place] [address] Phone: tel: fax: Referral ID Status Reason Start Date Expiration Date Visits Re quested Visits Authorized [id number] Closed 01/10/2025 01/10/2026 1 1 * Imaging (Urgent) - Closed Specialty Diagnoses / Procedures Referred By Contac t Referred To Contact Radiology Diagnoses Foraminal stenosis of cervical region Procedures MR Cervical Spine w/o Contrast Clare Mo MD [address] [place] [address] Phone: tel: fax: [facility] [address] [place] [address] Phone: tel: fax: Referral ID Status Reason Start Date Expiration Date Visits Re quested Visits Authorized [id number] Closed 01/03/2025 01/03/2026 1 1 Encounter Details Date Type Department Care Team (Late st Contact Info) Description 01/03/2025 Orders Only [facility] MED & PEDS [address] [place] [address] Clare Mo MD [address] [place] [address] Foraminal stenosis of cervical region (Primary Dx); [...] [facility] PED[facility] [address] [place] [address] Clare Mo MD [address] [place] [address] 10/08/2025 10:30 AM EST Telemedicine [facility] P[facility] [address] [place] [address] Evelina Pimentel, RN 505 [place] [address] documented as of this encounter Procedures Procedure [...] sites documented in this encounter Care Teams Pile Driver Operator Barge Mounted Relationship Specialty Start Date End Date Clare Mo MD [address] [place] [address] PCP - General Internal Medicine 03/17/17 documented as of this encounter
--- OUTSIDE RECORDS SUMMARY | 2025-08-25 19:21 | XMS_ITS | Encounter Summary ---
Author Organization [employer] Address 75 [facility] [address], [place] [address] Care Team Providers Care Tin Pot Operator Name Role Phone Clare Mo MD Primary Care Provider +1- [phone] Reason for Visit * Reason Onset Date Comments Med Refill 02/06/2025 Encounter Details Date Type Department Care Team ([facility] st Contact Info) Description 02/06/[address] [facility] MEDICINE [address] [place] [address] Clare Mo MD 505 [place], [place] [phone] Med Refill Social History Tobacco Use Types [...] [facility] MED & PEDS [address] [place] [address] Clare Mo MD 505 [place] [address] 10/08/2025 10:30 AM EST Telemedicine [facility] MED & PEDS [address] [place] [address] Evelina Pimentel RN 505 [place] [address] documented as of this encounter Visit Diagnoses Not on filedocumented in this encounter Care Teams Tin Pot Operator Relationship Specialty Start Date End Date Clare Mo MD [address] [place] [address] PCP - General Internal Medicine 03/17/17 documented as of this encounter
--- OUTSIDE RECORDS SUMMARY | 2025-08-25 19:22 | XMS_ITS | Encounter Summary ---
Author Organization [employer] Address 75 [facility] [address], [place] [address] Care Team Providers Care Manager Financial Name Role Phone Clare Mo MD Primary Care Provider +1- [phone] Reason for Visit * Reason Onset Date Comments Medication Question 11/29/2023 Encounter Details Date Type Department Care Team ([facility] Contact Info) Description 11/29/2023 Telephone [facility] MEDICINE [address] [place] [address] Clare Mo MD [address] [place], [place] [phone] Medication Question Social History Tobacco Use Types [...] information was provided. Please contact pt at [phone]. documented in this encounter Plan of Treatment Upcoming Encounters Date Type Department Care Team ([facility] st Contact Info) Description 08/30/2025 3:30 PM EST Office Visit [facility] MED & PEDS [address] [place] [address] Clare Mo MD [address] [place] [address] 10/08/2025 10:30 AM EST Telemedicine [facility] MED & PEDS [address] [place] [address] Evelina Pimentel, WILBER 505 [place] [address] documented as of this encounter Visit Diagnoses Not on filedocumented in this encounter Care Teams Manager Financial Relationship Specialty Start Date End Date Clare Mo MD [address] [place] [address] PCP - General Internal Medicine 03/17/17 documented as of this encounter
--- OUTSIDE RECORDS SUMMARY | 2025-08-25 19:22 | XMS_ITS | Encounter Summary ---
Author Organization [employer] Address [address] [place] [address] Care Team Providers Care Jacquard Loom Weaver Name Role Phone Clare Mo MD Primary Care Provider +1- [phone] Encounter Details Date Type Department Care Team ([facility] Contact Info) Description 03/03/2023 Abstract [facility] MED & PEDS [address] [place] [address] Kelsea Talley [place] Social History Tobacco Use [...] Upcoming Encounters Date Type Department Care Team ([facility] Contact Info) Description 08/30/2025 3:30 PM EST Office Visit [facility] MED [facility] PEDS [address] [place] [address] Clare Mo MD [address] [place] [address] 10/08/2025 10:30 AM EST Telemedicine [facility] MED & PEDS [address] [place] [address] Evelina Pimentel RN 505 [place] [address] documented as of this encounter Visit Diagnoses Not on filedocumented in this encounter Care Teams Jacquard Loom Weaver Relationship Specialty Start Date End Date Clare Mo MD [address] [place] [address] PCP - General Internal Medicine 03/17/17 documented as of this encounter
--- OUTSIDE RECORDS SUMMARY | 2025-08-25 19:22 | XMS_ITS | Encounter Summary ---
Author Organization [employer] Address [address] [place] [address] Care Team Providers Care Java Android Developer Name Role Phone Clare Mo MD Primary Care Provider +1- [phone] Encounter Details Date Type Department Care Team ([facility] Contact Info) Description 03/03/2023 Abstract [facility] MED & PEDS [address] [place] [address] Kelsea Talley [place] Social History Tobacco Use [...] Encounters Date Type Department Care Team ([facility] Contact Info) Description 08/30/2025 3:30 PM EST Office Visit [facility] & PEDS [address] [place] [address] Clare Mo MD [address] [place] [address] 10/08/2025 10:30 AM EST Telemedicine [facility] MED & PEDS [address] [place] [address] Evelina Pimentel RN [address] [place] [address] documented as of this encounter Visit Diagnoses Not on filedocumented in this encounter Care Teams Java Android Developer Relationship Specialty Start Date End Date Clare Mo MD [address] [place] [address] PCP - General Internal Medicine 03/17/17 documented as of this encounter
--- OUTSIDE RECORDS SUMMARY | 2025-08-25 19:22 | XMS_ITS | Encounter Summary ---
Author Organization [employer] Address 75 [facility] 7 [place] [address] Care Team Providers Care Entertainment Director Name Role Phone Clare Mo MD Primary Care Provider +1- [phone] Encounter Details Date Type Department Care Team ([facility] Contact Info) Description 11/29/[address] [facility] MED & PEDS [address] [place], [place] [phone] Clare Mo MD 505 [place] [address] Chronic low back pain with sciatica, sciatica [...] the past 12 months, has t he [employer], gas, oil or water company threatened to [...] 08/30/2025 3:30 PM EST Office Visit [facility] MED & PEDS [address] [place] [address] Clare Mo MD [address] [place] [address] 10/08/2025 10:30 AM EST Telemedicine [facility] MED [facility]ED[facility] [address] [place] [address] Evelina Pimentel RN 505 [place] [address] documented as of this encounter Visit Diagnoses Diagnosis Chronic low back pain with sciatica, sciatica laterality unspecified, unspecified back pain laterality- Primary documented in this encounter Care Teams Entertainment Director Relationship Specialty Start Date End Date Clare Mo MD [address] [place] [address] PCP - General Internal Medicine 03/17/17 documented as of this encounter
--- OUTSIDE RECORDS SUMMARY | 2025-08-25 19:22 | XMS_ITS | Encounter Summary ---
Author Organization [employer] Address 75 [facility] [address], [place] [address] Care Team Providers Care Precision Assembler Bench Name Role Phone Clare Mo MD Primary Care Provider +1- [phone] Reason for Visit * Reason Onset Date Comments Nurse Triage 04/03/2025 Encounter Details Date Type Department Care Team ([facility] Contact Info) Description 04/03/2025 Telephone [facility] MEDICINE [address] [place] [address] Clare Mo MD [address] [place], [place] [phone] Nurse Triage Social History Tobacco Use Types [...] an FYI. Pt. Will be returning from [place] tomorrow. * Telephone Encounter - Cristobal Rodriguez - 04/03/2025 10:50 AM EDT Symptoms: Fall, Sore Throat, Hip Pain - Not From Injury, Headache Outcome: Schedule an urgent appointment (within 1 hour) or talk to a nurse or provider soon Reason: Severe pain now Please contact pt at [phone]. documented in this encounter Plan of Treatment Upcoming Encounters Date Type Department Care Team (Late st Contact Info) Description 08/30/2025 3:30 PM EST Office Visit [facility] MED & PEDS [address] [place] [address] Clare Mo MD [address] [place] [address] 10/08/2025 10:30 AM EST Telemedicine [facility] MED & PEDS [address] [place] [address] Evelina Pimentel, WILBER [address] [place] [address] documented as of this encounter Visit Diagnoses Not on filedocumented in this encounter Care Teams Precision Assembler Bench Relationship Specialty Start Date End Date Clare Mo MD [address] [place] [address] PCP - General Internal Medicine 03/17/17 documented as of this encounter
--- OUTSIDE RECORDS SUMMARY | 2025-08-25 19:22 | XMS_ITS | Encounter Summary ---
Author Organization [employer] Address 75 [facility] [place] [address] Care Team Providers Care Scaffold Setter Name Role Phone Clare Mo MD Primary Care Provider +1- [phone] Reason for Visit * Reason Onset Date Comments Call Back Request 11/30/2023 Encounter Details Date Type Department Care Team ([facility] Contact Info) Description 11/30/2023 Telephone [facility] MEDICINE [address] [place] [address] Clare Mo MD [address] [place] [address] Call Back Request Social History Tobacco Use [...] 3:30 PM EST Office Visit [facility] PEDS [address] [place] [address] Clare Mo MD [address] [place] [address] 10/08/2025 10:30 AM EST Telemedicine [facility] MED [facility]ED[facility] [address] [place] [address] Evelina Pimentel, WILBER [address] [place] [address] documented as of this encounter Visit Diagnoses Not on filedocumented in this encounter Care Teams Scaffold Setter Relationship Specialty Start Date End Date Clare Mo MD [address] [place] [address] PCP - General Internal Medicine 03/17/17 documented as of this encounter
== END 2025-08-25 19:25 | disposition left against medical advice (07) ==
PROVIDERS: Emergency Provider Emergency Medicine; PCP Internal Medicine
DX: R10.22 Pelvic and perineal pain left side (principal); R00.0 Tachycardia, unspecified; R00.1 Bradycardia, unspecified; Z79.899 Other long term (current) drug therapy
CPT/HCPCS: 93005; 99283

== ENCOUNTER → 2025-08-25 16:13 | Outpatient (BNV) | payer OTHER, SELFPAY | PROVIDERS: Emergency Provider Emergency Medicine; PCP Internal Medicine; Visit Provider Internal Medicine Cardiovascular Disease | DX: R00.1 Bradycardia, unspecified (principal) | CPT/HCPCS: 93010 ==

== ENCOUNTER 2025-08-31 08:53 | Outpatient (REF) | payer OTHER, SELFPAY ==
--- OUTSIDE RECORDS SUMMARY | 2025-08-27 14:30 | XMS_ITS | Encounter Summary ---
Author Organization [employer] Address 75 [facility] 7[address] [place] [address] Care Team Providers Care Commercial Fisher Name Role Phone Clare Mo MD Primary Care Provider +1- [phone] Reason for Visit * Reason Comments ED RN VISIT Encounter Details Date Type Department Care Team ([facility] st Contact Info) Description 08/27/2025 2:30 PM EST Telemedicine [facility] MED & PEDS [address] [place] [address] Georgia Alicea RN Left hip pain [M25.552] Social History Tobacco Use Types Packs/Day Years [...] AM EDT documented as of this encounter Progress Notes * Georgia Alicea RN - 08/27/2025 2:30 PM EST Hospital Discharges and Admission for [facility] Type of Visit: Emergency Department Date of Admission/Visit: 08/25/25 Date of Discharge: 08/25/25 Facility: [facility] Diagnosis: Hip Pain Disposition: Discharged Home Follow-Up Actions Follow-Up Needed: Nurse appointment Follow-Up Outcome: Spoke to Patient Initial Contact Date: 08/27/25 Patient Contacted: Yes Patient Status: Unchanged May Macedo is a 45 year old female who was recently in the emergency room on 08/25/25 for hip pain. She returned to the ER due to persistent pain from fall on 08/21/25 hoping to complete an MRI at the ER on 08/25/25. The ER did not perform an emergency MRI due to non-emergent symptoms based on hospital emergency room triage and was advised to follow up with PCP. May already has an ER follow up with her PCP for the 08/21/25 emergency room visit and was advised to keep appointment. Author provided education on documentation needed to justify ordering the MRI to her insurance company for insurance to cover payment for MRI and advised appointment on 08/30/25 will provide documentation needed and advised for May to keep appointment. Advised if symptoms worsen to contact office. The full discharge summary is Is available under media scanned document Review Flowsheet [facility] Transition of Care Documentation Type of Visit Date of Admission/Visit Date of Discharge Facility Diagnosis Disposition 08/27/2025 4:00 PM Emergency Department 08/25/2025 08/25/2025 [facility] Hip Pain Discharged Home Recent Visits Date Type Provider Dept 06/01/25 Office Visit Clare Mo MD [facility] Med [facility] Peds 02/26/25 Office Visit Clare Mo MD [facility] Med & Peds 01/02/25 Office Visit Clare Mo MD [facility] Med & Peds 12/11/24 Office Visit Clare Mo MD [facility] Med & Peds Showing recent visits within past 365 days with a meds authorizing provider and meeting all other requirements Future Appointments Date Type Provider Dept 08/30/25 Appointment Clare Mo MD [facility] Med & Peds Showing future appointments within next 150 days with a meds authorizing provider and meeting all other requirements Patient was educated on hours of operation. documented in this encounter Plan of Treatment Upcoming Encounters Date Type Department Care Team ([facility] st Contact Info) Description 10/08/2025 10:30 AM EST Telemedicine [facility] MED & PEDS [address] [place] [address] Evelina Pimentel RN [address] [place] [address] documented as of this encounter Visit Diagnoses Diagnosis Left hip pain [M25.552] Pain in joint, pelvic region and thigh documented in this encounter Care Teams Commercial Fisher Relationship Specialty Start Date End Date Clare Mo MD [address] [place] [address] PCP - General Internal Medicine 03/17/17 documented as of this encounter
--- OUTSIDE RECORDS SUMMARY | 2025-08-30 15:30 | XMS_ITS | Encounter Summary ---
Author Organization [employer] Address [address] [place] [address] Care Team Providers Care Horizontal Drill Operator Name Role Phone Clare Mo MD Primary Care Provider [phone]- [phone] Reason for Referral * Imaging (Routine) - Authorized Specialty Diagnoses / Procedures Referred By Contac t Referred To Contact Radiology Diagnoses Chronic left-sided low back pain, unspecified whether sciatica present Subcutaneous nodule Procedures US SOFT TISSUE Clare Mo MD [address] [place] [address] Phone: tel: fax: [address] [address] Phone: tel: fax: Referral ID Status Reason Start Date Expiration Date V isits Requested Visits Authorized [id number] Authorized 08/30/2025 08/30/2026 1 1 Reason for Visit * Reason Comments ER Follow-up Encounter Details Date Type Department Care Team (Late st Contact Info) Description 08/30/2025 3:30 PM EST Office Visit [facility] MED [facility] PEDS [address] [place], [place] [phone] Clare Mo MD [address] [place], [place] [phone] Chronic left-sided low back pain, unspecified whether sciatica present (Primary Dx); Fall, initial encounter; Phlebitis; Subcutaneous nodule Social History Tobacco Use Types Packs/Day Years [...] Sign Reading Time Taken Comments Blood Pressure 141/79 08/30/2025 3:26 PM EST Pulse 67 08/30/2025 3:26 PM EST Temperature 36.8 C (98.2 F) 08/30/2025 3:26 PM EST Respiratory Rate 21 08/30/2025 3:26 PM EST Oxygen Saturation 99% 08/30/2025 3:26 PM EST Inhaled Oxygen Concentration - - Weight 88.5 kg (195 lb) 08/30/2025 3:26 PM EST Height 162.6 cm (5' 4 ) 08/30/2025 3:26 PM EST Body Mass Index 33.47 08/30/2025 3:26 PM EST documented in this encounter Progress Notes * Clare Mo MD - 08/30/2025 3:30 PM EST SUBJECTIVE May Macedo is a 45 y.o. female who presents for No chief complaint on file.. ER Follow-up Pertinent negatives include no chills or diaphoresis. May Macedo, 45-year-old female - On August 15, 2025, slipped and fell at [facility], landing on back - Experienced pain in back from neck down to buttocks following the fall - Crying due to pain after the incident - Taken by ambulance to emergency 1department, possible CT scan of brain performed, reportedly no bleeding found - Reports persistent and severe back pain, worsened by movement such as sneezing - Reports lumps in arms and chest, associated with pain and tenderness - Light and noise sensitivity - Tingling sensation upon touch in affected areas - States fear of fracture due to severity of pain - Avoids leaving the house due to pain and anxiety - Denies loss of consciousness at time of fall Problem List[1] Allergies[2] Medications Ordered Prior to Encounter[3] Review of Systems Constitutional: Negative for appetite change, chills and diaphoresis. Eyes: Negative for photophobia, pain and redness. Genitourinary: Negative for flank pain and frequency. Musculoskeletal: Positive for back pain. Skin: Skin growth of right forearm and right upper anterior chest OBJECTIVE Vitals: 08/30/25 1526 BP: (!) 141/79 BP Location: Left arm Patient Position: Sitting BP Cuff Size: Adult Pulse: 67 Resp: 21 Temp: 98.2 ??F (36.8 ??C) TempSrc: Oral SpO2: 99% Weight: 195 lb (88.5 kg) Height: 5' 4 (1.626 m) Physical Exam Constitutional: General: She is not in acute distress. Appearance: Normal appearance. She is not ill-appearing, toxic-appearing or diaphoretic. Pulmonary: Effort: Pulmonary effort is normal. Skin: Comments: No bruises Tenderness of the RIGHT UPPER ARM Tenderness of the right anterior chest Neurological: Mental Status: She is alert. Assessment/Plan Assessment/Plan Diagnoses and all orders for this visit: Chronic left-sided low back pain, unspecified whether sciatica present - XR Lumbar Spine Complete 4+ Views; Future - US SOFT TISSUE; Future - oxyCODONE (Roxicodone) 5 MG immediate release tablet; Take 1 tablet (5 mg) by mouth every 6 (six)hours if needed for severe pain for up to 7 days. Fall, initial encounter Phlebitis - dexAMETHasone (Decadron) 4 MG tablet; Take 1 tablet (4 mg) by mouth Once per day. Subcutaneous nodule - US SOFT TISSUE; Future Chronic left-sided low back pain, unspecified whether sciatica present: - Persistent low back pain following fall on August 15, 2025. No loss of consciousness. Pain radiates from neck to buttocks, worsened by movement. - Ordered X-ray of the back to evaluate for possible fracture. Prescribed dexamethasone, 3 mg once daily for 3 days. Advised use of warm compresses. Fall, initial encounter: - Fall occurred on August 15, 2025 at [facility], resulting in back pain. No loss of consciousness orhead trauma. CT scan of the brain performed in emergency department, no intracranial bleeding. - Ordered X-ray of the back. Will review imaging results. Phlebitis: - Inflammation of the vein at site of previous IV access, presenting as pain and tenderness in the arm. - Advised use of warm compresses to affected area. Subcutaneous nodule: - Palpable lump in chest wall, associated with pain. - Ordered ultrasound of chest wall to evaluate soft tissue and exclude other pathology. This note was drafted using Ambient (AI) technology. The patient/patient's guardian has been informed and has consented to the use of this technology: Yes [1] Patient Active Problem List Diagnosis Chronic low back pain Depressed bipolar I disorder ([facility]/HCC) ([facility]) Migraine Mood disorder ([facility]) Panic disorder Posttraumatic stress disorder Vitamin D deficiency Lump of skin of left upper extremity Vague bodily discomfort Dizzy spells Obesity Urge incontinence of urine Long-term current use of opiate analgesic Cervical spondylosis Facet arthritis, degenerative, lumbar spine Mild persistent asthma without complication [2] Allergies Allergen Reactions Ibuprofen Dermatitis Morphine Rash [3] Current Outpatient Medications on File Prior to Visit Medication Sig Dispense Refill Acetaminophen 500 MG capsule take 2 capsule by oral route every 8 hours as needed albuterol (2.5 MG/3ML) 0.083% nebulizer solution Take 3 mL (2.5 mg) by nebulization every 4 (four) hours if needed for wheezing. 75 mL 11 albuterol (ProAir HFA) 108 (90 Base) MCG/ACT inhaler inhale 2 puff by inhalation route every 4 - 6 hours as needed Alcohol Swabs 70 % pads Use to test blood sugar 1 times daily 100 each 0 ALPRAZolam (Xanax) 1 MG tablet TAKE ONE TABLET BY MOUTH EVERY DAY NEEDED FOR ANXIETY FOR UP TO 15 DAYS 25 tablet 0 Blood Glucose Monitoring Suppl (FreeStyle Morning View Lite) w/Device kit Use to test blood sugar 1 times daily 1 kit 0 Blood Pressure kit To check the BP daily 1 kit 0 cholecalciferol (Vitamin D-3) 25 MCG (1000 UT) tablet Take 1 tablet (25 mcg) by mouth in the morning. 60 tablet 11 cyclobenzaprine (Flexeril) 10 MG tablet TAKE ONE TABLET TWICE DAILY 60 tablet 3 Diclofenac Sodium 1 % gel To use on the affected area 3 times a day 100 g 2 Elastic Bandages & Supports (Elbow Strap Left/Right) misc To wear daily Elastic Bandages & Supports (Knee Brace) mis Knee brace large/xlarge To use daily Elastic Bandages & Supports (Lumbar Back Brace/Support Pad) misc To wear daily as needed. 1 each 0 Elastic Bandages & Supports (Wrist Brace Deluxe) misc Bilateral hand pain. Please provide a brace that can cover the hands as per pt's request. 2 each 0 Elastic Bandages & Supports (Wrist Brace Deluxe) [facility] Please provide a brace that can cover thehands as per pt's request. 2 each 0 FREESTYLE LITE test strip Use to test blood sugar 1 times daily 100 each 12 FREESTYLE LITE test strip Use to test blood sugar 1 times daily 100 each 12 gabapentin (Neurontin) 800 MG tablet TAKE ONE TABLET BY MOUTH THREE TIMES DAILY 90 tablet 5 Heating Pads pads To use daily hydrOXYzine pamoate (Vistaril) 50 MG capsule TAKE ONE OR TWO CAPSULES BY MOUTH AT BEDTIME 30 capsule 0 Lancets misc Use to test blood sugar 1 times daily 100 each 0 magnesium gluconate 250 MG tablet Take 250 mg by mouth. Misc. Devices (Cane) misc Use 1 by To Assist with ambulation route Misc. Devices (Pulse Oximeter Deluxe) misc To check the O2 sat every 4 hours 1 each 0 Misc. Devices (Rollator Ultra-Light) misc To use daily naloxone (Narcan) 4 mg/0.1 mL nasal spray Administer 1 spray (4 mg) into affected nostril(s) if needed for opioid reversal. May repeat every 2-3 minutes if needed, alternating nostrils, until medicalassistance becomes available. 2 each 1 nhrnvjlu-urxzggecg-tngltyjkstpbij (Cortisporin) 3.5-13208-[address] 3 to 4 DROPS IN AFFECTED EAR(S) FOUR TIMES DAILY FOR 10 DAYS ondansetron (Zofran) 4 MG tablet take 2 tablet by oral route 2 times every day oxyCODONE-acetaminophen (Percocet) 10-325 MG tablet Take 1 tablet by mouth every 8 (eight) hours ifneeded for severe pain. Do not start before August 17, 2025. 42 tablet 0 pregabalin (Lyrica) 200 MG capsule TAKE ONE CAPSULE BY MOUTH TWICE DAILY 60 capsule 0 Rhubarb (Estroven Complete) 4 MG tablet 1 tab once a day 30 tablet 3 tiZANidine (Zanaflex) 4 MG tablet Take 1 tablet (4 mg) by mouth every 6 (six) hours if needed for muscle spasms for up to 10 days. 40 tablet 0 [DISCONTINUED] oxyCODONE (Roxicodone) 5 MG immediate release tablet Take 5 mg by mouth. No current facility-administered medications on file prior to visit. documented in this encounter Plan of Treatment Upcoming Encounters Date Type Department Care Team (Late st Contact Info) Description 10/08/2025 10:30 AM EST Telemedicine [facility]EDS [address] [place] [address] Evelina Pimentel RN [address] [place] [address] Scheduled Orders Name Type Priority Associated Diagnoses Orde r Schedule XR Lumbar Spine Complete 4+ Views Imaging Routine Chronic left-sided low back pain, unspecified whether sciatica present Expected: 08/30/2025, Expires: 08/30/2026 US SOFT TISSUE Imaging Routine Chronic left-sided low back pain, unspecified whether sciatica present Subcutaneous nodule Expected: 08/30/2025, Expires: 08/30/2026 documented as of this encounter Visit Diagnoses Diagnosis Chronic left-sided low back pain, unspecified whether sciatica present- Primary Fall, initial encounter Phlebitis Phlebitis and thrombophlebitis of unspecified site Subcutaneous nodule documented in this encounter Care Teams Horizontal Drill Operator Relationship Specialty Start Date End Date Clare Mo MD [address] [place] [address] PCP - General Internal Medicine 03/17/17 documented as of this encounter
--- NOTE | ~2025-08-31 | XR_ITS ---
EXAMINATION: XR LUMBAR SPINE 4 OR MORE VIEWS HISTORY: Worsening low back pain after a fall. COMPARISON: Comparison is made with the prior examination dated 03/21/2025. FINDINGS: AP, lateral, and coned down views of the lumbar spine are submitted. Osseous mineralization is normal. Five nonrib-bearing lumbar vertebral bodies are identified, maintaining normal height and alignment without evidence of fracture or spondylolisthesis. There is mild narrowing of the L4-5 and L5-S1 intervertebral disc spaces. The posterior elements are intact. The visualized paraspinal soft tissues are unremarkable. XR/XR lumbar spine 4V min IMPRESSION: Disc space narrowing at L4-5 and L5-S1. Electronically signed by: Chriss Gutierrez MD 08/31/2025 09:29 AM KATHY
--- OUTSIDE RECORDS SUMMARY | 2025-08-31 09:11 | XMS_ITS | Encounter Summary ---
Author Organization [employer] Address [address] [address] Care Team Providers Care Carrier Packer Name Role Phone Clare Mo MD Primary Care Provider [phone]- [phone] Reason for Referral * Consultation (Routine) - Closed Specialty Diagnoses / Procedures Referred By Contac t Referred To Contact Orthopaedic Surgery Diagnoses Right hip pain SI joint arthritis (CMS/HCC) Clare Mo MD [address] [place] [address] Phone: tel: fax: [facility] [address] [place] [address] [address] [place] [address] Phone: tel: fax: Referral ID Status Reason Start Date Expiration Date V isits Requested Visits Authorized [id number] Closed Specialty Services Required 09/07/2024 09/07/2025 6 6 Encounter Details Date Type Department Care Team ([facility] Contact Info) Description 09/04/2024 Orders Only [facility]EDS [address] [place], [place] [phone] Clare Mo MD [address] [place], [place] [phone] Right hip pain (Primary Dx); SI joint [...] Upcoming Encounters Date Type Department Care Team ([facility] st Contact Info) Description 10/08/2025 10:30 AM EST Telemedicine [facility]EDS [address] [place] [address] Evelina Pimentel, WILBER [address] [place] [address] Scheduled Referrals Name Type Priority Associated Diagnoses Order Schedule Referral to Orthopaedic Surgery Outpatient Referral Routine Right hip pain SI joint arthritis (CMS/HCC) Expected: 09/04/2024 (Approximate), Expires: 09/04/2025 documented as of this encounter Visit Diagnoses Diagnosis Right hip pain- Primary Pain in joint, pelvic region and thigh SI joint arthritis (CMS/HCC) documented in this encounter Care Teams Carrier Packer Relationship Specialty Start Date End Date Clare Mo MD [address] [place] [address] PCP - General Internal Medicine 03/17/17 documented as of this encounter
--- OUTSIDE RECORDS SUMMARY | 2025-08-31 09:11 | XMS_ITS | Encounter Summary ---
Author Organization [employer] Address 75 [facility] 7 [place] [address] Care Team Providers Care Bench Mover Name Role Phone Clare Mo MD Primary Care Provider [phone]- [phone] Encounter Details Date Type Department Care Team ([facility] Contact Info) Description 09/29/2024 Orders Only [facility] MED [facility] PEDS [address] [place], [place] [phone] Clare Mo MD [address] [place] [address] Social History Tobacco Use Types Packs/Day Years [...] [facility] [address] [place] [address] Evelina Pimentel RN [address] [place] [address] documented as of this encounter Visit Diagnoses Not on filedocumented in this encounter Care Teams Bench Mover Relationship Specialty Start Date End Date Clare Mo MD [address] [place] [address] PCP - General Internal Medicine 03/17/17 documented as of this encounter
--- OUTSIDE RECORDS SUMMARY | 2025-08-31 09:12 | XMS_ITS | Encounter Summary ---
Author Organization [employer] Address 75 [facility] [address], [place] [address] Care Team Providers Care Relays Draftsperson Name Role Phone Clare Mo MD Primary Care Provider +1- [phone] Reason for Visit * Reason Onset Date Comments error 03/21/2025 Encounter Details Date Type Department Care Team ([facility] Contact Info) Description 03/21/2025 Telephone [facility] MEDICINE [address] [place] [address] Clare Mo MD [address] [place], [place] [phone] error Social History Tobacco Use Types Packs/Day [...] [facility] st Contact Info) Description 10/08/2025 10:30 AM EST Telemedicine [facility] MED [facility]EDS [address] [place] [address] Evelina Pimentel, WILBER [address] [place] [address] documented as of this encounter Visit Diagnoses Not on filedocumented in this encounter Care Teams Relays Draftsperson Relationship Specialty Start Date End Date Clare Mo MD [address] [place] [address] PCP - General Internal Medicine 03/17/17 documented as of this encounter
--- OUTSIDE RECORDS SUMMARY | 2025-08-31 09:12 | XMS_ITS | Encounter Summary ---
Author Organization [employer] Address 75 [facility] 7 [place] [address] Care Team Providers Care Plant Clerk Name Role Phone Clare Mo MD Primary Care Provider +1- [phone] Encounter Details Date Type Department Care Team ([facility] Contact Info) Description 03/02/2025 Orders Only [facility] [address] [place], [place] [phone] Clare Mo MD 505 [place], [place] [phone] Hypoproteinemia (CMS/HCC) (Primary Dx); Transaminitis Social History [...] Description 10/08/2025 10:30 AM EST Telemedicine [facility] [address] [place] [address] Evelina Pimentel, RN 505 [place] [address] documented as of this encounter Procedures Procedure Name Priority Date/Time Associated Diagnosis Comments COMPREHENSIVE METABOLIC PANEL Routine 04/10/2025 11:39 AM EDT Hypoproteinemia (CMS/HCC) Transaminitis documented in this encounter Results * (ABNORMAL) Comprehensive Metabolic Panel (04/10/2025 11:39 AM EDT) Sodium 141 135 - 145 mmol/L [facility] Potassium 3.7 3.3 - 5.1 mmol/L [facility] Chloride 106 96 - 108 mmol/L [facility] Carbon Dioxide 26 22 - 29 mmol/L [facility] Anion Gap 13 12 - 20 [facility] Urea Nitrogen (BUN) 14 9 - 16 mg/dL [facility] Creatinine, Serum 0.96 0.5 - 1.4 mg/dL [facility] Estimated Glomerular Filt Rate >60 [facility] Comment:Chronic Kidney Disea se: Estimated GFR < 60 mL/min/1.17q9Urwcop Kidney Disease: Estimated GFR < 15 mL/min/1.73m2 Glucose 120(H) 60 - 115 mg/dL [facility] Calcium 9.4 8.4 - 10.2 mg/dL [facility] Bilirubin, Total 0.4 0.0 - 1.0 mg/dL [facility] Aspartate Amino Transferase 24 5 - 31 U/L [facility] Alanine Aminotransferase 28 0 - 31 U/L [facility] Total Protein 7.6 6.5 - 8.0 g/dL [facility] Albumin Level 4.7 3.5 - 5.0 g/dL [facility] Alkaline Phosphatase 69 39 - 117 U/L [facility] Blood Venous blood specimen / Unknown 04/10/2025 11:39 AM EDT 04/10/2025 2:04 PM EDT Clare Mo MD LAB BLOOD ORDERABLES Final Result [facility] [address] [place] [address] [phone] documented in this encounter Visit Diagnoses Diagnosis Hypoproteinemia (CMS/HCC)- Primary Other disorders of plasma protein metabolism Transaminitis Nonspecific elevation of levels of transaminase or lactic acid dehydrogenase (LDH) documented in this encounter Care Teams Plant Clerk Relationship Specialty Start Date End Date Clare Mo MD [address] [place] [address] PCP - General Internal Medicine 03/17/17 documented as of this encounter
--- OUTSIDE RECORDS SUMMARY | 2025-08-31 09:12 | XMS_ITS | Encounter Summary ---
Author Organization [employer] Address 75 [facility] 7 [place] [address] Care Team Providers Care Manufacturing Director Name Role Phone Clare Mo MD Primary Care Provider +1- [phone] Reason for Visit * Reason Comments Med Refill Encounter Details Date Type Department Care Team ([facility] st Contact Info) Description 01/25/2024 Refill [facility] MEDICINE [address] [place] [address] Clare Mo MD [address] [place], [place] [phone] Chronic low back pain with sciatica, sciatica [...] [facility] MED & PEDS [address] [place] [address] Evelina Pimentel RN 505 [place] [address] documented as of this encounter Visit Diagnoses Diagnosis Chronic low back pain with sciatica, sciatica laterality unspecified, unspecified back pain laterality Anxiety Anxiety state, unspecified documented in this encounter Care Teams Manufacturing Director Relationship Specialty Start Date End Date Clare Mo MD 505 [place] [address] PCP - General Internal Medicine 03/17/17 documented as of this encounter
--- OUTSIDE RECORDS SUMMARY | 2025-08-31 09:12 | XMS_ITS | Encounter Summary ---
Author Organization [employer] Address 75 [facility] 7t [place] [address] Care Team Providers Care Reel Cart Operator Name Role Phone Clare Mo MD Primary Care Provider +1 [phone] Encounter Details Date Type Department Care Team (Latest Contact Info) Description 08/30/2025 Travel Social History Tobacco Use Types Packs/Day [...] Info) Description 10/08/2025 10:30 AM EST Telemedicine [facility] MED & PEDS [address] [place] [address] Evelina Pimentel RN [address] [place] [address] documented as of this encounter Visit Diagnoses Not on filedocumented in this encounter Care Teams Reel Cart Operator Relationship Specialty Start Date End Date Clare Mo MD 505 [place] [address] PCP - General Internal Medicine 03/17/17 documented as of this encounter
--- OUTSIDE RECORDS SUMMARY | 2025-08-31 09:12 | XMS_ITS | Encounter Summary ---
Author Organization [employer] Address 75 [facility] [address] [place] [address] Care Team Providers Care Chain Maker Hand Name Role Phone Clare Mo MD Primary Care Provider +1- [phone] Reason for Visit * Reason Comments Med Refill Encounter Details Date Type Department Care Team ([facility] Contact Info) Description 03/21/2025 Refill [facility] MED & PEDS [address] [place], [place] [phone] Clare Mo MD 505 [place] [address] Anxiety Social History Tobacco Use Types Packs/Day [...] Upcoming Encounters Date Type Department Care Team ([facility] st Contact Info) Description 10/08/2025 10:30 AM EST Telemedicine [facility] MED [facility] PEDS [address] [place] [address] Evelina Pimentel, WILBER 505 [place] [address] documented as of this encounter Visit Diagnoses Diagnosis Anxiety Anxiety state, unspecified documented in this encounter Care Teams Chain Maker Hand Relationship Specialty Start Date End Date Clare Mo MD [address] [place] [address] PCP - General Internal Medicine 03/17/17 documented as of this encounter
--- OUTSIDE RECORDS SUMMARY | 2025-08-31 09:12 | XMS_ITS | Encounter Summary ---
Author Organization [employer] Address [address] [address] Care Team Providers Care Hatchery Helper Name Role Phone Clare Mo MD Primary Care Provider +1- [phone] Reason for Visit * Reason Comments Med Refill Encounter Details Date Type Department Care Team ([facility] st Contact Info) Description 04/05/2023 Refill [facility] MED & PEDS [address] [place], [place] [phone] Clare Mo MD 505 [place] [address] Chronic midline low back pain with sciatica, [...] EST Telemedicine [facility] MED & PEDS [address] [place] [address] Evelina Pimentel RN 505 [place] [address] documented as of this encounter Visit Diagnoses Diagnosis Chronic midline low back pain with sciatica, sciatica laterality unspecified Chronic low back pain, unspecified back pain laterality, unspecified whether sciatica present documented in this encounter Care Teams Hatchery Helper Relationship Specialty Start Date End Date Clare Mo MD [address] [place] [address] PCP - General Internal Medicine 03/17/17 documented as of this encounter
--- OUTSIDE RECORDS SUMMARY | 2025-08-31 09:12 | XMS_ITS | Encounter Summary ---
Author Organization [employer] Address 75 [facility] [address] [place] [address] Care Team Providers Care Neon Electrician Name Role Phone Clare Mo MD Primary Care Provider +1- [phone] Reason for Visit * Reason Onset Date Comments Durable Medical Equipment 08/30/2025 Encounter Details Date Type Department Care Team ([facility] st Contact Info) Description 08/30/2025 Telephone [facility] MEDICINE [address] [place] [address] Clare Mo MD 505 [place] [address] Durable Medical Equipment Social History Tobacco Use Types Packs/Day Years [...] encounter Miscellaneous Notes * Telephone Encounter - Kirsty Mo - 08/30/2025 1:33 PM EST TC from [place] with [facility] requesting a Bedside commode for pt due to [employer] night time hours will be reduce. To Contact [place] at [phone] Mo documented in this encounter Plan of Treatment Upcoming Encounters Date Type Department Care Team (Late st Contact Info) Description 10/08/2025 10:30 AM EST Telemedicine [facility] MED & PEDS [address] [place] [address] Evelina Pimentel RN 505 [place] [address] documented as of this encounter Visit Diagnoses Not on filedocumented in this encounter Care Teams Neon Electrician Relationship Specialty Start Date End Date Clare Mo MD 505 [place] [address] PCP - General Internal Medicine 03/17/17 documented as of this encounter
--- OUTSIDE RECORDS SUMMARY | 2025-08-31 09:12 | XMS_ITS | Encounter Summary ---
Author Organization [employer] Address 75 [facility] [address] [address] Care Team Providers Care Pantry Steward/Stewardess Name Role Phone Clare Mo MD Primary Care Provider +1- [phone] Reason for Visit * Reason Onset Date Comments Med Refill 04/14/2024 Encounter Details Date Type Department Care Team ([facility] st Contact Info) Description 04/14/2024 Telephone [facility] MEDICINE [address] [place] [address] Clare Mo MD 505 [place] [address] Med Refill Social History Tobacco Use Types [...] 1 MG tablet To be sent to: [facility] - [place], [place] - [address] [place] [address] documented in this encounter Plan of Treatment Upcoming Encounters Date Type Department Care Team (Late st Contact Info) Description 10/08/2025 10:30 AM EST Telemedicine [facility] MED & PEDS 505 [place] [address] Evelina Pimentel RN 505 [place] [address] documented as of this encounter Visit Diagnoses Not on filedocumented in this encounter Care Teams Pantry Steward/Stewardess Relationship Specialty Start Date End Date Clare Mo MD 505 [place] [address] PCP - General Internal Medicine 03/17/17 documented as of this encounter
--- OUTSIDE RECORDS SUMMARY | 2025-08-31 09:12 | XMS_ITS | Encounter Summary ---
Author Organization [employer] Address 75 [facility] [place], [place] [address] Care Team Providers Care Parts Back Counter Man Name Role Phone Clare Mo MD Primary Care Provider +1- [phone] Reason for Visit * Reason Onset Date Comments Med Refill 03/03/2024 Encounter Details Date Type Department Care Team ([facility] st Contact Info) Description 03/03/2024 Telephone [facility] MEDICINE [address] [place] [address] Clare Mo MD 505 [place] [address] Med Refill Social History Tobacco Use Types [...] they should both have refills at [facility]. * Telephone Encounter - Ayla Gongora - 03/03/2024 10:18 AM EDT TC from pt requesting medication refill. Medications needing refill : cyclobenzaprine (Flexeril) 10 MG tablet gabapentin (Neurontin) 800 MG tablet To be sent to: [facility] - [place], [place] - [address] [place] [address] documented in this encounter Plan of Treatment Upcoming Encounters Date Type Department Care Team (Late st Contact Info) Description 10/08/2025 10:30 AM EST Telemedicine [facility] MED & PEDS [address] [place] [address] Evelina Pimentel, WILBER 505 [place] [address] documented as of this encounter Visit Diagnoses Diagnosis Anxiety Anxiety state, unspecified Chronic low back pain with sciatica, sciatica laterality unspecified, unspecified back pain laterality documented in this encounter Care Teams Parts Back Counter Man Relationship Specialty Start Date End Date Clare Mo MD 505 [place] [address] PCP - General Internal Medicine 03/17/17 documented as of this encounter
--- OUTSIDE RECORDS SUMMARY | 2025-08-31 09:12 | XMS_ITS | Encounter Summary ---
Author Organization [employer] Address [address] [place] [address] Care Team Providers Care Pastry Sous Chef Name Role Phone Clare Mo MD Primary Care Provider +1- [phone] Reason for Referral * Consultation (Urgent) - Closed Specialty Diagnoses / Procedures Referred By Contac t Referred To Contact Neurosurgery Diagnoses Lumbar nerve root impingement Clare Mo MD [address] [place] [address] Phone: tel: fax: Keli Suggs [address] [place] [address], [address] [place], [place] Phone: tel: fax: Referral ID Status Reason Start Date Expiration Date V isits Requested Visits Authorized [id number] Closed Specialty Services Required 01/11/2024 01/10/2025 1 1 Encounter Details Date Type Department Care Team (Late st Contact Info) Description 01/11/2024 Orders Only [facility] MED & PEDS [address] [place], [place] [phone] Clare Mo MD [address] [place] [address] Lumbar nerve root impingement (Primary Dx); Chronic [...] Upcoming Encounters Date Type Department Care Team ([facility] st Contact Info) Description 10/08/2025 10:30 AM EST Telemedicine [facility] MED & PEDS [address] [place] [address] Evelina Pimentel, WILBER 505 [place] [address] Scheduled Referrals Name Type Priority Associated Diagnoses [...] unspecified documented in this encounter Care Teams Pastry Sous Chef Relationship Specialty Start Date End Date Clare Mo MD [address] [place] [address] PCP - General Internal Medicine 03/17/17 documented as of this encounter
--- OUTSIDE RECORDS SUMMARY | 2025-08-31 09:12 | XMS_ITS | Encounter Summary ---
Author Organization [employer] Address [address] [place] [address] Care Team Providers Care Bond Trader Name Role Phone Clare Mo MD Primary Care Provider +1- [phone] Encounter Details Date Type Department Care Team ([facility] Contact Info) Description 03/23/2023 Orders Only [facility] MED & PEDS [address] [place] [address] Clare Mo MD 505 [place] [address] Chronic low back pain with sciatica, sciatica [...] Encounters Date Type Department Care Team ([facility] Contact Info) Description 10/08/2025 10:30 AM EST Telemedicine [facility] MED & PEDS [address] [place] [address] Evelina Pimentel, RN 505 [place] [address] documented as of this encounter Visit Diagnoses Diagnosis Chronic low back pain with sciatica, sciatica laterality unspecified, unspecified back pain laterality- Primary Vitamin D deficiency documented in this encounter Care Teams Bond Trader Relationship Specialty Start Date End Date Clare Mo MD 505 [place] [address] PCP - General Internal Medicine 03/17/17 documented as of this encounter
--- OUTSIDE RECORDS SUMMARY | 2025-08-31 09:12 | XMS_ITS | Encounter Summary ---
Author Organization [employer] Address 75 [facility] [address] [place] [address] Care Team Providers Care Admitting Manager Name Role Phone Clare Mo MD Primary Care Provider +1- [phone] Reason for Visit * Reason Onset Date Comments Med Refill 01/02/2025 Encounter Details Date Type Department Care Team ([facility] st Contact Info) Description 01/02/2025 Refill [facility] MED & PEDS 505 [place] [address] Clare Mo MD 505 [place] [address] Foraminal stenosis of cervical region (Primary Dx); [...] Upcoming Encounters Date Type Department Care Team ([facility] Contact Info) Description 10/08/2025 10:30 AM EST Telemedicine [facility] MED & PEDS [address] [place] [address] Evelina Pimentel, WILBER 505 [place] [address] documented as of this encounter Visit Diagnoses Diagnosis Foraminal stenosis of cervical region- Primary Anxiety Anxiety state, unspecified documented in this encounter Care Teams Admitting Manager Relationship Specialty Start Date End Date Clare Mo MD [address] [place] [address] PCP - General Internal Medicine 03/17/17 documented as of this encounter
--- OUTSIDE RECORDS SUMMARY | 2025-08-31 09:12 | XMS_ITS | Encounter Summary ---
Author Organization [employer] Address [address] [place] [address] Care Team Providers Care Sports Photographer Name Role Phone Clare Mo MD Primary Care Provider +1- [phone] Reason for Visit * Reason Comments Med Refill Encounter Details Date Type Department Care Team ([facility] Contact Info) Description 03/09/2023 Refill [facility] MED & PEDS [address] [place] [address] Clare Mo MD 505 [place] [address] Chronic low back pain with sciatica, sciatica [...] Upcoming Encounters Date Type Department Care Team ([facility] Contact Info) Description 10/08/2025 10:30 AM EST Telemedicine [facility] MED & PEDS [address] [place] [address] Evelina Pimentel, WILBER [address] [place] [address] documented as of this encounter Visit Diagnoses Diagnosis Chronic low back pain with sciatica, sciatica laterality unspecified, unspecified back pain laterality Anxiety Anxiety state, unspecified documented in this encounter Care Teams Sports Photographer Relationship Specialty Start Date End Date Clare Mo MD [address] [place] [address] PCP - General Internal Medicine 03/17/17 documented as of this encounter
--- OUTSIDE RECORDS SUMMARY | 2025-08-31 09:12 | XMS_ITS | Encounter Summary ---
Author Organization [employer] Address [address] [place] [address] Care Team Providers Care Journeyman Millwright Name Role Phone Clare Mo MD Primary Care Provider +1- [phone] Reason for Referral * Consultation (Routine) - Closed Specialty Diagnoses / Procedures Referred By Contac t Referred To Contact Nutrition Diagnoses Obesity, unspecified classification, unspecified obesity type, unspecified whether serious comorbidity present Clare Mo MD [address] [place] [address] Phone: tel: fax: Referral ID Status Reason Start Date Expiration Date V isits Requested Visits Authorized [id number] Closed Consult and Treat 05/19/2024 05/19/2025 1 1 Encounter Details Date Type Department Care Team ([facility] st Contact Info) Description 05/19/2024 Orders Only [facility] MED & PEDS [address] [place] [address] Clare Mo MD [address] [place] [address] Obesity, unspecified classification, unspecified obesity type, unspecified [...] [facility] MED & PEDS 505 [place] [address] Evelina Pimentel, WILBER 505 [place] [address] Scheduled Referrals Name Type Priority Associated Diagnoses Orde r Schedule Referral to Nutrition Therapy Outpatient Referral Routine Obesity, unspecified classification, unspecified obesity type, unspecified whether serious comorbidity present Expected: 05/19/2024 (Approximate), Expires: 05/19/2025 documented as of this encounter Visit Diagnoses Diagnosis Obesity, unspecified classification, unspecified obesity type, unspecified whether serious comorbidity present- Primary documented in this encounter Care Teams Journeyman Millwright Relationship Specialty Start Date End Date Clare Mo MD [address] [place] [address] PCP - General Internal Medicine 03/17/17 documented as of this encounter
--- OUTSIDE RECORDS SUMMARY | 2025-08-31 09:12 | XMS_ITS | Encounter Summary ---
Author Organization [employer] Address 75 [facility] [address] [address] Care Team Providers Care Sand Mixer Machine Name Role Phone Clare Mo MD Primary Care Provider +1- [phone] Reason for Visit * Reason Onset Date Comments Call Back Request 01/06/2024 Encounter Details Date Type Department Care Team ([facility] Contact Info) Description 01/06/2024 Telephone [facility] MED & PEDS [address] [place] [address] Clare Mo MD [address] [place] [address] Call Back Request Social History Tobacco Use [...] ([facility] st Contact Info) Description 10/08/2025 10:30 AM EST Telemedicine [facility] MED & PEDS [address] [place] [address] Evelina Pimentel, WILBER [address] [place] [address] documented as of this encounter Visit Diagnoses Not on filedocumented in this encounter Care Teams Sand Mixer Machine Relationship Specialty Start Date End Date Clare Mo MD [address] [place] [address] PCP - General Internal Medicine 03/17/17 documented as of this encounter
--- OUTSIDE RECORDS SUMMARY | 2025-08-31 09:12 | XMS_ITS | Encounter Summary ---
Author Organization [employer] Address [address] [place] [address] Care Team Providers Care Clinical Registered Nurse Name Role Phone Clare Mo MD Primary Care Provider +1- [phone] Encounter Details Date Type Department Care Team ([facility] Contact Info) Description 04/20/2023 Orders Only [facility] MED & PEDS [address] [place] [address] Clare Mo MD [address] [place] [address] Pain in both hands (Primary Dx); Chronic [...] Upcoming Encounters Date Type Department Care Team ([facility] Contact Info) Description 10/08/2025 10:30 AM EST Telemedicine [facility] MED & PEDS 505 [place] [address] Evelina Pimentel RN [address] [place], [place] [phone] documented as of this encounter Visit Diagnoses Diagnosis Pain in both hands- Primary Chronic low back pain, unspecified back pain laterality, unspecified whether sciatica present documented in this encounter Care Teams Clinical Registered Nurse Relationship Specialty Start Date End Date Clare Mo MD [address] [place] [address] PCP - General Internal Medicine 03/17/17 documented as of this encounter
--- OUTSIDE RECORDS SUMMARY | 2025-08-31 09:12 | XMS_ITS | Encounter Summary ---
Author Organization [employer] Address [address] [address] Care Team Providers Care Inspector Radar And Electronics Name Role Phone Clare Mo MD Primary Care Provider +1- [phone] Reason for Visit * Reason Onset Date Comments Medication Question 03/15/2025 Encounter Details Date Type Department Care Team ([facility] Contact Info) Description 03/15/2025 Telephone [facility] MED & PEDS [address] [place] [address] Clare Mo MD 505 [place] [address] Medication Question Social History Tobacco Use Types [...] not be back 04/28 Contact pt at [phone] documented in this encounter Plan of Treatment Upcoming Encounters Date Type Department Care Team (Late st Contact Info) Description 10/08/2025 10:30 AM EST Telemedicine [facility] MED & PEDS [address] [place] [address] Evelina Pimentel RN [address] [place] [address] documented as of this encounter Visit Diagnoses Diagnosis Foraminal stenosis of cervical region Chronic low back pain with sciatica, sciatica laterality unspecified, unspecified back pain laterality Anxiety Anxiety state, unspecified documented in this encounter Care Teams Inspector Radar And Electronics Relationship Specialty Start Date End Date Clare Mo MD [address] [place] [address] PCP - General Internal Medicine 03/17/17 documented as of this encounter
--- OUTSIDE RECORDS SUMMARY | 2025-08-31 09:12 | XMS_ITS | Encounter Summary ---
Author Organization [employer] Address [address] [facility] [employer] [facility] [employer] 7 [place] [address] Care Team Providers Care Electricians Top Helper Name Role Phone Clare Mo MD Primary Care Provider +1 [phone] Encounter Details Date Type Department Care Team ([facility] Contact Info) Description 02/24/2024 Orders Only [facility] [address] [place], [place] [phone] Provider, MD Radhika Social History Tobacco Use [...] [facility] MED & PEDS [address] [place] [address] Evelina Pimentel, RN [address] [place] [address] documented as of this encounter Procedures Procedure [...] on filedocumented in this encounter Care Teams Electricians Top Helper Relationship Specialty Start Date End Date Clare Mo MD [address] [place] [address] PCP - General Internal Medicine 03/17/17 documented as of this encounter
--- OUTSIDE RECORDS SUMMARY | 2025-08-31 09:12 | XMS_ITS | Encounter Summary ---
Author Organization [employer] Address [address] [facility] 7 [place] [address] Care Team Providers Care Scribing Machine Operator Name Role Phone Clare Mo MD Primary Care Provider +1- [phone] Encounter Details Date Type Department Care Team ([facility] Contact Info) Description 10/20/2024 Orders Only [facility] MED & PEDS [address] [place], [place] [phone] Clare Mo MD [address] [place] [address] Chronic low back pain with sciatica, sciatica [...] the past 12 months, has t he [employer], gas, oil or water company threatened to [...] [facility] MED & PEDS [address] [place] [address] Evelina Pimentel RN 505 [place] [address] documented as of this encounter Visit Diagnoses Diagnosis Chronic low back pain with sciatica, sciatica laterality unspecified, unspecified back pain laterality- Primary documented in this encounter Care Teams Scribing Machine Operator Relationship Specialty Start Date End Date Clare Mo MD [address] [place] [address] PCP - General Internal Medicine 03/17/17 documented as of this encounter
--- OUTSIDE RECORDS SUMMARY | 2025-08-31 09:12 | XMS_ITS | Clinical Summary ---
Author Organization [facility] Address [address] [place] [address] Phone Care Team Providers Care Mechanical Project Engineer Name Role Phone Clare Mo MD Primary Care Provider +1 [phone] Allergies No known active allergies Medications ALPRAZolam [...] day. TEST BLOOD SUGAR 5 Active FreeStyle [place] Lite monitoring kit by extracorporeal route 1 [...] had x-rays of the hip performed at [facility] on 08/01/24. They revealed calcific tendinitis at [...] arms overhead, she had to ask the semiconductor development technician to help her move her arms [...] residual retropharyngeal swelling on her x-rays from [place]. I am putting her on low-dose Decadron [...] dynamic views performed when she went to [facility]. Assessment & Plan (02/14/2025 9:41 PM [...] Dr. Suggs when she is back from [place] (March 23). I asked her to call [...] she do this before her trip to [place] in March as she will be well [...] spine from January of this year at [facility] veal degenerative changes most significant at [...] told her she likely has fibromyalgia. Saw sporting goods sales manager, was started on vitamin D, magnesium, [...] looking forward to starting treatment to [facility] [place] hopefully this will provide her some relief. [...] lumbar cortisone injections back in 2020 at [facility]. She has been walking with a walker. Ms. Macedo describes left low back, buttock, hip and foot pain. She is having to walk with a walker, feels her balance is poor. We can check updated lumbar spine MRI with and without contrast to rule out recurrent disc herniation/nerve root compression. She would also like to be referred back to [facility] to see if they would offer left SI joint injection, she has tenderness over the SI joint, pain in the SI joint region with external hip rotation. She will go for the hip x-rays (already ordered by PCP) this coming week. We will follow-up with her after imaging is complete. Encounters Date Type Department Care Team Description 08/02/2025 Telephone [facility] - [address] [place] [address] [place], [place] from Last 3 Months Immunizations Immunization [...] Screening 1980 Colorectal Cancer Screening: Colonoscopy 1978 Non-Opioid Controlled Substance Agreement 1978 Medicare Annual Wellness Visit 08/16/2022 Social Influencers of Health Screening 08/16/2022 Depression Screening 09/13/2024 Hepatitis B Vaccines (2 of 3 - 19+ 3-dose series) 03/26/2025 02/26/2025 COVID-19 Vaccine ( season) 2025 08/27/2023, 02/26/2023, 02/26/2023, Additional history exists Influenza Vaccine (#1) 2025 , 07/02/2022, 06/17/2021, Additional history exists Drug Screen 01/17/2026 01/17/2025, 02/0 02/2025, 07/26/2024, Additional history exists Cervical Cancer Screening: Pap [...] this topic Medical Devices Implanted Type Area Martial Arts Instructor Device Identifier Shelf Expiration Date Model / Serial / Lot L-Asr Tay Canc [id number] Fd Fee - [id number] - [id number] Implanted:Qty : 1 on 02/01/2025 by Keli Suggs MD at [facility] [employer] Bone N/A: Spine Cervical [employer] 01/27/2026 [id number] / [id number] / [id number] L-Asr Tay Canc [id number] Fd Fee - [id number] - [id number] Implanted:Qty : 1 on 02/01/2025 by Keli Suggs MD at [facility] [employer] Bone N/A: Spine Cervical [employer] 04/22/2026 [id number] / [id number] / [id number] Powder Surgifoam Absorb Gel - Sna - [id number] Implanted:Qty : 1 on 02/01/2025 by Keli Suggs MD at [facility] [employer] N/A: Spine Cervical [employer] 10/26/20261977 / NA / [id number] Plate Spin Cerv Ant Zevo 35mm - Sna - [id number] Implanted:Qty : 1 on 02/01/2025 by Keli Suggs MD at [facility] Spinal Hardware N/A: Spine Cervical [employer] SOFAMOR DANEK [id number] / NA / NA Screw Cerv [address] 13x3.5mm - Sna - [id number] Implanted:Qty : 6 on 02/01/2025 by Keli Suggs MD at [facility] Spinal Hardware N/A: Spine Cervical [employer] SOFAMOR DANEK [id number] / NA / NA Insurance MEDICARE [facility] MEDICARE Member Subscriber Plan / Payer (Ef fective 2025-Present) Name:ANDREA MACEDO Relation to Subscriber:Self Name:Andrea Macedo Payer ID:[id number] Group ID:[id number] Type:Not on file Address: [place] [address] [address] [id number] Advance Directives * Full Code - Default [...] currently active code status orders. Care Teams Mechanical Project Engineer Relationship Specialty Start Date End Date Clare Mo MD [address] [place] [address] PCP - General 01/11/24
--- OUTSIDE RECORDS SUMMARY | 2025-08-31 09:12 | XMS_ITS | Encounter Summary ---
Author Organization [employer] Address [address] [place] [address] Care Team Providers Care School Traffic Supervisor Name Role Phone Clare Mo MD Primary Care Provider +1- [phone] Reason for Visit * Reason Onset Date Comments Med Refill 04/02/2023 Medication Question 04/02/2023 Encounter Details Date Type Department Care Team ([facility] Contact Info) Description 04/02/2023 Telephone [facility] MED & PEDS [address] [place] [address] Clare Mo MD [address] [place], [place] [phone] Med Refill; Medication Question Social History Tobacco [...] 10:30 AM EST Telemedicine [facility] MED & PEDS [address] [place] [address] Evelina Pimentel RN [address] [place] [address] documented as of this encounter Visit Diagnoses Not on filedocumented in this encounter Care Teams School Traffic Supervisor Relationship Specialty Start Date End Date Clare Mo MD [address] [place] [address] PCP - General Internal Medicine 03/17/17 documented as of this encounter
--- OUTSIDE RECORDS SUMMARY | 2025-08-31 09:12 | XMS_ITS | Encounter Summary ---
Author Organization [employer] Address [address] [address] Care Team Providers Care Sustainability Coach Name Role Phone Clare Mo MD Primary Care Provider +1- [phone] Reason for Visit * Reason Onset Date Comments Med Refill 03/19/2023 Encounter Details Date Type Department Care Team ([facility] Contact Info) Description 03/19/2023 Telephone [facility] CHC MED & PEDS [address] [place] [address] Clare Mo MD [address] [place] [address] Med Refill Social History Tobacco Use Types [...] Upcoming Encounters Date Type Department Care Team ([facility] st Contact Info) Description 10/08/2025 10:30 AM EST Telemedicine [facility] MED & PEDS [address] [place] [address] Evelina Pimentel, RN [address] [place] [address] documented as of this encounter Visit Diagnoses Not on filedocumented in this encounter Care Teams Sustainability Coach Relationship Specialty Start Date End Date Clare Mo MD [address] [place] [address] PCP - General Internal Medicine 03/17/17 documented as of this encounter
--- OUTSIDE RECORDS SUMMARY | 2025-08-31 09:12 | XMS_ITS | Encounter Summary ---
Author Organization [employer] Address [address] [facility] [place], [place] [address] Care Team Providers Care Grinding Mill Operator Name Role Phone Clare Mo MD Primary Care Provider +1- [phone] Reason for Visit * Reason Onset Date Comments Med Refill 11/10/2024 Encounter Details Date Type Department Care Team ([facility] st Contact Info) Description 11/10/2024 Telephone [facility] MEDICINE [address] [place] [address] Clare Mo MD [address] [place], [place] [phone] Med Refill Social History Tobacco Use Types [...] to: [facility] - [place], [place] - [address] [place] [address] ' ' documented in this encounter Plan of Treatment Upcoming Encounters Date Type Department Care Team (Late st Contact Info) Description 10/08/2025 10:30 AM EST Telemedicine [facility] CHC MED & PEDS [address] [place] [address] Evelina Pimentel, WILBER [address] [place] [address] documented as of this encounter Visit Diagnoses Not on filedocumented in this encounter Care Teams Grinding Mill Operator Relationship Specialty Start Date End Date Clare Mo MD [address] [place] [address] PCP - General Internal Medicine 03/17/17 documented as of this encounter
--- OUTSIDE RECORDS SUMMARY | 2025-08-31 09:12 | XMS_ITS | Encounter Summary ---
Author Organization [employer] Address [address] [place] [address] Care Team Providers Care Bottle Machine Operator Name Role Phone Clare Mo MD Primary Care Provider +1- [phone] Reason for Visit * Reason Onset Date Comments Med Refill 03/09/2023 Encounter Details Date Type Department Care Team ([facility] Contact Info) Description 03/09/2023 Telephone [facility] CHC MED & PEDS [address] [place] [address] Clare Mo MD [address] [place] [address] Med Refill Social History Tobacco Use Types [...] (Xanax) 1 MG tablet Please sent to [facility] - [place], [place] - [address] [facility] documented in this encounter Plan of Treatment Upcoming Encounters Date Type Department Care Team ([facility] st Contact Info) Description 10/08/2025 10:30 AM EST Telemedicine [facility] MED & PEDS [address] [place] [address] Evelina Pimentel, WILBER [address] [place] [address] documented as of this encounter Visit Diagnoses Not on filedocumented in this encounter Care Teams Bottle Machine Operator Relationship Specialty Start Date End Date Clare Mo MD [address] [place] [address] PCP - General Internal Medicine 03/17/17 documented as of this encounter
--- OUTSIDE RECORDS SUMMARY | 2025-08-31 09:12 | XMS_ITS | Encounter Summary ---
Author Organization [employer] Address [address] [address] Care Team Providers Care Department Specialist Name Role Phone Clare Mo MD Primary Care Provider +1- [phone] Reason for Visit * Reason Onset Date Comments Results 04/02/2023 Encounter Details Date Type Department Care Team ([facility] Contact Info) Description 04/02/2023 Telephone [facility] CHC MED & PEDS [address] [place], [place] [phone] Clare Mo MD [address] [place] [address] Results Social History Tobacco Use Types Packs/Day [...] [facility] [address] [place] [address] Evelina Pimentel RN [address] [place] [address] documented as of this encounter Visit Diagnoses Diagnosis Chronic midline low back pain with sciatica, sciatica laterality unspecified documented in this encounter Care Teams Department Specialist Relationship Specialty Start Date End Date Clare Mo MD [address] [place] [address] PCP - General Internal Medicine 03/17/17 documented as of this encounter
--- OUTSIDE RECORDS SUMMARY | 2025-08-31 09:12 | XMS_ITS | Encounter Summary ---
Author Organization [employer] Address [address] [place] [address] Care Team Providers Care Carbonation Tester Name Role Phone Clare Mo MD Primary Care Provider +1- [phone] Reason for Visit * Reason Onset Date Comments Medication Question 03/19/2023 Encounter Details Date Type Department Care Team ([facility] Contact Info) Description 03/19/2023 Telephone [facility] CHC MED & PEDS [address] [place] [address] Clare Mo MD [address] [place] [address] Medication Question Social History Tobacco Use Types [...] increase, pt requested to speak to nurse cosmetology educator, Hotel Operations Manager advice to return call after 9:30 where she can be connected to a manager loan or nurse, pt agreed to plan. * [...] [facility] [address] [place] [address] Evelina Pimentel, RN [address] [place] [address] documented as of this encounter Visit Diagnoses Not on filedocumented in this encounter Care Teams Carbonation Tester Relationship Specialty Start Date End Date Clare Mo MD [address] [place] [address] PCP - General Internal Medicine 03/17/17 documented as of this encounter
--- OUTSIDE RECORDS SUMMARY | 2025-08-31 09:12 | XMS_ITS | Encounter Summary ---
Author Organization [employer] Address [address] [facility] [address], [place] [address] Care Team Providers Care Communications Agent Name Role Phone Clare Mo MD Primary Care Provider +1- [phone] Reason for Visit * Reason Onset Date Comments Nurse Triage 01/03/2025 Encounter Details Date Type Department Care Team ([facility] Contact Info) Description 01/03/[address] [facility] MEDICINE [address] [place] [address] Clare Mo MD [address] [place], [place] [phone] Nurse Triage Social History Tobacco Use Types Packs/Day Years Used Date Smoking Tobacco: Former Cigarettes Housing Stability Answer Date Recorded What is your housing situation today? I have roesmaryindy zuniga 06/02/[address] you [...] 10:30 AM EST Telemedicine [facility] CHC MED & PEDS [address] [place] [address] Evelina Pimentel, WILBER [address] [place] [address] documented as of this encounter Visit Diagnoses Not on filedocumented in this encounter Care Teams Communications Agent Relationship Specialty Start Date End Date Clare Mo MD [address] [place] [address] PCP - General Internal Medicine 03/17/17 documented as of this encounter
--- OUTSIDE RECORDS SUMMARY | 2025-08-31 09:12 | XMS_ITS | Encounter Summary ---
Author Organization [employer] Address [address] [facility] 7 [place] [address] Care Team Providers Care Welfare Project Manager Name Role Phone Clare Mo MD Primary Care Provider +1- [phone] Encounter Details Date Type Department Care Team ([facility] Contact Info) Description 01/24/2025 Orders Only [facility] CHC MED & PEDS [address] [place], [place] [phone] Clare Mo MD [address] [place] [address] Neck pain Social History Tobacco Use Types [...] [facility] MED & PEDS [address] [place] [address] Evelina Pimentel RN [address] [place] [address] documented as of this encounter Visit Diagnoses Diagnosis Neck pain Cervicalgia documented in this encounter Care Teams Welfare Project Manager Relationship Specialty Start Date End Date Clare Mo MD [address] [place] [address] PCP - General Internal Medicine 03/17/17 documented as of this encounter
--- OUTSIDE RECORDS SUMMARY | 2025-08-31 09:12 | XMS_ITS | Encounter Summary ---
Author Organization [employer] Address [address] [facility] 7t [place] [address] Care Team Providers Care Protector Plate Attacher Name Role Phone Clare Mo MD Primary Care Provider +1 [phone] Encounter Details Date Type Department Care Team (Latest Contact Info) Description 08/27/2025 Travel Social History Tobacco Use Types Packs/Day [...] Info) Description 10/08/2025 10:30 AM EST Telemedicine [facility] MED & PEDS [address] [place] [address] Evelina Pimentel RN [address] [place] [address] documented as of this encounter Visit Diagnoses Not on filedocumented in this encounter Care Teams Protector Plate Attacher Relationship Specialty Start Date End Date Clare Mo MD [address] [place] [address] PCP - General Internal Medicine 03/17/17 documented as of this encounter
--- OUTSIDE RECORDS SUMMARY | 2025-08-31 09:13 | XMS_ITS | Encounter Summary ---
Author Organization [employer] Address [address] [facility] [address] [address] Care Team Providers Care Food Packer Name Role Phone Clare Mo MD Primary Care Provider +1- [phone] Reason for Visit * Reason Onset Date Comments Med Refill 02/06/2025 Encounter Details Date Type Department Care Team ([facility] st Contact Info) Description 02/06/2025 Telephone [facility] MEDICINE [address] [place] [address] Clare Mo MD [address] [place], [place] [phone] Med Refill Social History Tobacco Use Types [...] [facility] [address] [place] [address] Evelina Pimentel RN [address] [place] [address] documented as of this encounter Visit Diagnoses Not on filedocumented in this encounter Care Teams Food Packer Relationship Specialty Start Date End Date Clare Mo MD [address] [place] [address] PCP - General Internal Medicine 03/17/17 documented as of this encounter
--- OUTSIDE RECORDS SUMMARY | 2025-08-31 09:13 | XMS_ITS | Clinical Summary ---
Author Organization [employer] Address [address] [facility] 7 [place] [address] Care Team Providers Care Breastfeeding Peer Counselor Name Role Phone Clare Mo MD Primary Care Provider +1- [phone] Allergies Active Allergy Reactions Criticality Noted Date [...] 2025 Active Blood Glucose Monitoring Suppl (FreeStyle Driver Lite) w/Device kitIndications: Dizziness Use to test blood sugar 1 times daily 1 kit 025 Active Blood Pressure kitIndications: Dizziness To check the BP daily 1 kit 025 Active Misc. Devices (Pulse Oximeter Deluxe) miscIndications :Dizziness To check the O2 sat every 4 hours 1 each Active magnesium gluconate 250 MG tablet Take 250 mg by mouth. Active neomycin-polymy andrew-hydrocortis one (Cortisporin) 3.5-83278-[address] 3 to 4 DROPS IN AFFECTED EAR(S) FOUR TIMES DAILY FOR 10 DAYS Active naloxone (Narcan) 4 mg/0.1 mL nasal spray Administer 1 spray (4 mg) into affected nostril(s) if needed for opioid reversal. May repeat every 2-3 minutes if needed, alternating nostrils, until medical assistance becomes available. 2 each 1 Active albuterol (2.5 MG/3ML) 0.083% nebulizer solutionIndicat ions:Mild persistent asthma without complication Take 3 mL (2.5 mg) by nebulization every 4 (four) hours if needed for wheezing. 75 mL 11 025 2025 Active tiZANidine (Zanaflex) 4 MG tabletIndicatio ns:Neck pain Take 1 tablet (4 mg) by mouth every 6 (six) hours if needed for muscle spasms for up to 10 days. 40 tablet 025 Active ALPRAZolam (Xanax) 1 MG tabletIndicatio ns:Anxiety [...] start before August 17, 2025. 42 tablet 5 1:40 PM EST Active dexAMETHasone (Decadron) 4 MG tabletIndicatio ns:Phlebitis Take 1 tablet (4 mg) by mouth Once per day. 3 tablet 5 4:01 PM EST 025 2024 Active oxyCODONE (Roxicodone) 5 MG immediate release tabletIndicatio ns:Chronic left-sided low back pain, unspecified whether sciatica present Take 1 tablet (5 mg) by mouth every 6 (six) hours if needed for severe pain for up to 7 days. 15 tablet 5 4:11 PM EST 025 2024 Active oxyCODONE (Roxicodone) 5 MG immediate release tablet Take 5 mg by mouth. 025 2024 Discontinued(R eojonnieer (will not trigger notification to Pharmacy)) pregabalin (Lyrica) 200 MG capsuleIndicati ons:Chronic low [...] start before August 03, 2025. 42 tablet 5 10:27 AM EST 025 2024 Discontinued Active Problems Problem Noted Date [...] back pain 02/05/2016 Depressed bipolar I disorder ([facility]/HCC) 6 Migraine 02/05/2016 Mood disorder 02/05/2016 Panic disorder 02/05/2016 Posttraumatic stress disorder 02/05/2016 Encounters * This document contains information received from the source organization and may not represent a complete record from that organization. Date Type Department Care Team Description 08/30/2025 3:30 PM EST Office Visit [facility] [address] [place] [address] Clare Mo MD Chronic left-sided low back pain, unspecified whether sciatica present (Primary Dx); Fall, initial encounter; Phlebitis; Subcutaneous nodule 08/30/2025 Travel 08/30/2025 Telephone [facility] [address] [place], [place] [phone] Clare Mo MD Durable Medical Equipment 08/27/2025 2:30 PM EST Telemedicine [facility] [address] [place] [address] Georgia Alicea RN Left hip pain [M25.552] 08/27/2025 Travel 08/22/[address] [address] Clare Mo MD Nurse Triage 08/15/[address] [address] Clare Mo MD Foraminal stenosis of cervical region 08/14/[address] [facility] [address] [place] [address] Clare Mo MD Anxiety; Chronic low back pain with sciatica, sciatica laterality unspecified, unspecified back pain laterality 07/30/[address] [address] Clare Mo MD Foraminal stenosis of cervical region 07/20/[address] [address] Clare Mo MD Foraminal stenosis of cervical region 07/19/2025 11:00 AM EST Clinical Support [facility] [address] [place] [address] Evelina Pimentel RN Chronic low back pain with sciatica, sciatica laterality unspecified, unspecified back pain laterality (Primary Dx) 07/19/[address] [facility] [address] [place] [address] Clare Mo MD Anxiety (Primary Dx) 07/19/[address] [facility] [address] [place] [address] Evelina Pimentel RN 07/19/2025 Travel 07/15/[address] [facility] [address] [place] [address] Clare Mo MD Mild persistent asthma without complication; Chronic low back pain with sciatica, sciatica laterality unspecified, unspecified back pain laterality; Anxiety 07/03/2025 Refill [facility] [address] [place] [address] Clare Mo MD Foraminal stenosis of cervical region 06/28/[address] [facility] [address] [place] [address] Clare Mo MD Medication Question 06/28/[address] [facility] [address] [place] [address] Clare Mo MD Medication Question 06/21/2025 Refill [facility] [address] [place] [address] Clare Mo MD Foraminal stenosis of cervical region 06/20/[address] [facility] [address] [place] [address] Evelina Pimentel, WILBER Anxiety 06/20/[address] [facility] [address] [place] [address] Clare Mo MD 06/20/[address] [facility] [address] [place] [address] Clare Mo MD Chronic low back pain with sciatica, sciatica laterality unspecified, unspecified back pain laterality; Neck pain 06/20/[address] [facility] [address] [place] [address] Claer Mo MD Durable Medical Equipment 06/11/[address] [facility] [address] [place] [address] Evelina Pimentel, RN 06/11/2025 Telephone [facility] [address] [place] [address] Clare Mo MD Call Back Request 06/08/2025 Refill [facility] [address] [place] [address] Clare Mo MD Foraminal stenosis of cervical region 06/04/[address] [facility] [address] [place] [address] Clare Mo MD Durable Medical Equipment 06/01/2025 3:45 PM EDT Office Visit [facility] [address] [place] [address] Clare Mo MD Mild persistent asthma without complication (Primary Dx); Primary osteoarthritis of both ankles 06/01/2025 Travel from Last 3 Months Immunizations Immunization Administration [...] Mass Index 33.47 08/30/2025 3:26 PM EST Plan of Treatment Upcoming Encounters Date Type Department Care Team (Late st Contact Info) Description 10/08/2025 10:30 AM EST Telemedicine [facility] [address] [place] [address] Evelina Pimentel, WILBER [address] [place] [address] Health Maintenance Due Date Last Done Comments [...] Disability Screening 01/01/2026 01/01/2025 Mammogram 04/30/2026 04/30/2025, 0810/2023, 01/10/2022, Additional history exists Tobacco Screening 08/30/2026 08/30/2025 Cervical Cancer Screening 03/08/2028 HPV/Cotest 03/08/2028 10/24/2019 [...] AM EST . Internal Pass Control Lot# [id number] Exp: 07-13-26 Clare Mo MD POINT OF CARE TEST ENTER/ED IT ORDERABLES Final Result * BI Mammogram Screening Tomosynthesis Bilateral (04/30/2025 1:40 PM EDT) Anatomical Region Laterality Modality Breast Bilateral Mammography 04/30/2025 1:40 PM EDT Narrative 05/02/2025 9:21 AM EDT [facility] [address] [place] [address] Mammography Report Signed Patient: May Macedo MR#: [id number] : 1980 Acct:[id number] Age/Sex: 44 / F ADM Date: 04/30/25 Loc: MAMMO Attending Dr: Clare Mo MD Ordering Physician: Clare Mo MD Results: 1 Negative Date of Service: 04/30/25 Follow Up: 1 Year From Orig ina Mammogram Procedure(s): MM tomosynthesis screening BI Accession Number(s): [id number] cc: Clare Mo MD EXAMINATION: MM SCREENING [...] 05/02/25 0918 DD/ 1340 TD/TT: 04/30/25 1350 Defect Repairer Glassware: Procedure Note Donotuseinterpreter, Image - 05/02/2025 [facility] [address] [place] [address] Mammography Report Signed Patient: May Macedo#: [id number] : 1980Acct:[id number] Age/Sex: 44 / FADM Date: 04/30/25 Loc: HO.MAMMO Attending Dr: Clare Mo MD Ordering Physician: Clare Mo MDResults: 1 Negative Date of Service: 04/30/25Follow Up: 1 Year From Orig inal Mammogram Procedure(s): MM tomosynthesis screening BI Accession Number(s): [id number] cc: Clare Mo MD EXAMINATION: MM SCREENING [...] 05/02/25 0918 DD/ 1340 TD/TT: 04/30/25 1350 Defect Repairer Glassware: us Clare Mo MD IMG BI PROCEDURES Final Res ult * Hepatitis C Antibody with Reflex to HCV, RNA, Quantitative, Real-Time PCR (02/28/2025 12:36 PM EDT) Hepatitis C Antibody Nonreactive Nonreactive [facility] Comment:Antibodies to HCV no t detected; does not exclude early acuteHCV infection. Blood Venous blood specimen / Unknown 02/28/2025 12:36 PM EDT 02/28/2025 2:06 PM EDT us Clare Mo MD LAB BLOOD ORDERABLES Final Result [facility] [address] [place] [address] [phone] * HIV-1/2 Antigen and Antibodies, Fourth Generation, with Reflexes (02/28/2025 12:36 PM EDT) HIV AB/AG Nonreactive Nonreactive [facility] Comment:HIV-1 p24 Ag and/or HIV-1/HIV-2 Ab not detected.A test result that is nonreactive does not exclude thepossibility of exposure to or infection with HIV-1 and/orHIV-2. Nonreactive results in this assay for individualswith prior exposure to HIV-1 and/or HIV-2 may be due toantigen and antibody levels that are below the limit ofdetection of this assay.The [employer] HIV Ag/Ab Combo assay result andsupplemental assay results should be interpreted inconjunction with the patient's clinical presentation,history and other laboratory results. If the results areinconsistent with clinical evidence, additional testing issuggested to confirm the result. Blood Venous blood specimen / Unknown 02/28/2025 12:36 PM EDT 02/28/2025 2:06 PM EDT us Clare Mo MD LAB BLOOD ORDERABLES Final Result [facility] [address] [place] [address] [phone] * Lipid Panel, Standard (02/28/2025 12:36 PM EDT) Triglycerides 111 <150 mg/dL [facility] Comment:Desirable Triglyceri de: less than 150 mg/dLBorderline High Triglyceride 150-199 mg/dLHigh Triglyceride: 200-499 mg/dLVery High Triglyceride: greater than or equal to 5OO mg/dL Cholesterol 181 <200 mg/dL [facility] Comment:Desirable Cholestero l: less than 200 mg/dLBorderline High Cholesterol: 200-239 mg/dLHigh Cholesterol: greater than 239 mg/dL LDL Cholesterol Calculated 95 <100 mg/dL [facility] Comment:Desirable LDL: less than 100 mg/dLNear Optimal/Above Optimal LDL: 110- 129 mg/dLBorderline High LDL: 130-159 mg/dLHigh LDL: 160-189 mg/dLVery High LDL: greater than or equal to 190 mg/dL HDL Cholesterol 64 >40 mg/dL [facility] Comment:Desirable HDL: great er than 40 mg/dL Note: This HDL assay may give artificially low results in patients with liver disease. Blood Venous blood specimen / Unknown 02/28/2025 12:36 PM EDT 02/28/2025 2:06 PM EDT us Clare Mo MD LAB BLOOD ORDERABLES Final Result [facility] [address] [place] [address] [phone] * Hm Colonoscopy (08/31/2024 10:14 AM EST) us Historical Provider HEALTH MAINTENANCE Final Result * Pap Smear (03/08/2023 12:18 PM EDT) 03/08/2023 12:1 8 PM EDT 03/10/2023 8:55 AM EDT Narrative [facility] - 03/27/2023 3:23 PM EDT ----- ------- Name: May Beckwith Age/Sex: 42/F : 1980 Unit#: [id number] Attend Dr: Jeff William MD Re03/08/23 Status: DEP REF Location: HO.LNP Disch: ----- ------- SPEC : [id number] RECD: 03/10/23 STATUS: PO LYNCH NUM: [id number] BRANDON: 03/08/23-[address] [facility] [address]: Jeff William MD ENTERED: 03/10/23 SP [...] 59, 66, 68) HPV testing performed by [facility], [place], [place]. See reference laboratory portion of the EMR for entire report. Clinical Information LMP: 03/05/23 Previous PAP test: Unknown date/findings Material Received ThinPrep-Cervical Copies To: Clare Mo MD [address] [place] [address] [phone] Jeff William MD [address] [place] [phone] ----- ------- Signed (signature on file) Alondra Santillan 03/27/23 1523 ----- ------- END OF REPORT [facility] External Provider LAB CYT OLOGY ORDERABLES Final Result Performing Organization Address City/[facility]/ZIP Co de Phone Number [facility] [address] [place] [address] [phone] * HPV mRNA E6/E7 (10/24/2019 3:31 PM EST) HPV mRNA E6/E7 Not Detected NOT DETECTED [facility] Comment: This test was performed using the APTIMA(R) HPV Assay ([employer] This assay detects E6/E7 viral messenger RNA (mRNA) from 14 high-risk HPV types (16,18,31,33,35,39,45,51, 52,56,58,59,66,68). For additional information please refer to: http://education.CrossChx/faq/JQO170l4 (This link is being provided for informational/ educational purposes only.) The analytical performance characteristics of this assay have been determined by [employer] [place], [place]. The modifications have not been cleared or approved by the FDA. This assay has been validated pursuant to the CLIA regulations and is used for clinical purposes. Test Performed by [facility], [facility], [address] [place] [address] Jalen Hart M.D., Ph.D., Director of Laboratories , CLIA [id number] Please note: Effective 05/25/2016, HPV testing will be performed using [employer]'s APTIMA test which targets mRNA. Detecting mRNA instead of DNA, as in older methods, offers significant improvements in specificity. 10/24/2019 3:31 PM EST Camille Ash CNM HISTORICAL/NON ORDERABLE LABS Final Result Performing Organization Address City/[facility]/ZIP Co de Phone Number [facility] [address] from Last 3 Months or Most Recently Relevant to Health Maintenance Insurance [facility] STANDARD [facility] ONE CARE < 65 DENTAL-[facility] [place] [address] [place] [address] Care Teams Breastfeeding Peer Counselor Relationship Specialty Start Date End Date Clare Mo MD [address] [place] [address] [place] PCP - General Internal Medicine 03/17/17
--- OUTSIDE RECORDS SUMMARY | 2025-08-31 09:13 | XMS_ITS | Encounter Summary ---
Author Organization [employer] Address [address] [place] [address] Care Team Providers Care Collision Technician Name Role Phone Clare Mo MD Primary Care Provider +1- [phone] Reason for Visit * Reason Comments Med Refill Encounter Details Date Type Department Care Team ([facility] Contact Info) Description 02/11/2023 Refill [facility] [address] [place] [address] Clare Mo MD [address] [place] [address] Chronic low back pain with sciatica, sciatica [...] [facility] Contact Info) Description 10/08/2025 10:30 AM EST Telemedicine [facility] [address] [place] [address] Evelina Pimentel WILBER [address] [place] [address] documented as of this encounter Visit Diagnoses Diagnosis Chronic low back pain with sciatica, sciatica laterality unspecified, unspecified back pain laterality documented in this encounter Care Teams Collision Technician Relationship Specialty Start Date End Date Clare Mo MD [address] [place] [address] PCP - General Internal Medicine 03/17/17 documented as of this encounter
--- OUTSIDE RECORDS SUMMARY | 2025-08-31 09:13 | XMS_ITS | Encounter Summary ---
Author Organization [employer] Address [address] [facility] [place] [facility] [address] [address] Care Team Providers Care Remote Sensing Program Manager Name Role Phone Clare Mo MD Primary Care Provider +1- [phone] Reason for Visit * Reason Onset Date Comments Med Refill 07/26/2023 Encounter Details Date Type Department Care Team ([facility] st Contact Info) Description 07/26/2023 Telephone [facility] [address] [place] [address] Clare Mo MD [address] [place], [place] [phone] Med Refill Social History Tobacco Use Types [...] Description 10/08/2025 10:30 AM EST Telemedicine [facility] [address] [place] [address] Evelina Pimentel, WILBER [address] [place] [address] documented as of this encounter Visit Diagnoses Not on filedocumented in this encounter Care Teams Remote Sensing Program Manager Relationship Specialty Start Date End Date Clare Mo MD [address] [place] [address] PCP - General Internal Medicine 03/17/17 documented as of this encounter
--- OUTSIDE RECORDS SUMMARY | 2025-08-31 09:13 | XMS_ITS | Encounter Summary ---
Author Organization [employer] Address [address] [facility] [address], [place] [address] Care Team Providers Care Clam Sorter Name Role Phone Clare Mo MD Primary Care Provider +1- [phone] Reason for Visit * Reason Onset Date Comments Med Refill 05/29/2024 Encounter Details Date Type Department Care Team ([facility] st Contact Info) Description 05/29/2024 Telephone [facility] [address] [place] [address] Clare Mo MD [address] [place], [place] [phone] Med Refill Social History Tobacco Use Types [...] 1 MG tablet To be sent to: [facility] - [place], [place] - [address] [place] [address] documented in this encounter Plan of Treatment Upcoming Encounters Date Type Department Care Team (Late st Contact Info) Description 10/08/2025 10:30 AM EST Telemedicine [facility] [address] [place] [address] Evelina Pimentel, WILBER [address] [place] [address] documented as of this encounter Visit Diagnoses Not on filedocumented in this encounter Care Teams Clam Sorter Relationship Specialty Start Date End Date Clare Mo MD [address] [place] [address] PCP - General Internal Medicine 03/17/17 documented as of this encounter
--- OUTSIDE RECORDS SUMMARY | 2025-08-31 09:13 | XMS_ITS | Encounter Summary ---
Author Organization [employer] Address [address] [place] [address] Care Team Providers Care Obiee Obia Solution Architect Name Role Phone Clare Mo MD Primary Care Provider +1- [phone] Reason for Visit * Reason Comments Med Refill Encounter Details Date Type Department Care Team ([facility] Contact Info) Description 02/24/2023 Refill [facility] [address] [place] [address] Clare Mo MD [address] [place] [address] Anxiety; Chronic low back pain with sciatica, [...] [facility] [address] [place] [address] Evelina Pimentel, WILBER [address] [place] [address] documented as of this encounter Visit Diagnoses Diagnosis Anxiety Anxiety state, unspecified Chronic low back pain with sciatica, sciatica laterality unspecified, unspecified back pain laterality documented in this encounter Care Teams Obiee Obia Solution Architect Relationship Specialty Start Date End Date Clare Mo MD [address] [place] [address] PCP - General Internal Medicine 03/17/17 documented as of this encounter
--- OUTSIDE RECORDS SUMMARY | 2025-08-31 09:13 | XMS_ITS | Encounter Summary ---
Author Organization [employer] Address [address] [facility] 7 [place] [address] Care Team Providers Care Coffee Supervisor Name Role Phone Clare Mo MD Primary Care Provider +1- [phone] Encounter Details Date Type Department Care Team ([facility] Contact Info) Description 12/18/2024 Orders Only [facility] [address] [place], [place] [phone] Clare Mo MD [address] [place] [address] Social History Tobacco Use Types Packs/Day Years [...] Info) Description 10/08/2025 10:30 AM EST Telemedicine [facility] [address] [place] [address] Evelina Pimentel RN [address] [place] [address] documented as of this encounter Visit Diagnoses Not on filedocumented in this encounter Care Teams Coffee Supervisor Relationship Specialty Start Date End Date Clare Mo MD [address] [place] [address] PCP - General Internal Medicine 03/17/17 documented as of this encounter
--- OUTSIDE RECORDS SUMMARY | 2025-08-31 09:13 | XMS_ITS | Encounter Summary ---
Author Organization [employer] Address 75 [facility] 7 [place] [address] Care Team Providers Care Subeditor Name Role Phone Clare Mo MD Primary Care Provider +1- [phone] Reason for Visit * Reason Comments Med Refill Encounter Details Date Type Department Care Team ([facility] st Contact Info) Description 02/06/2025 Refill [facility] [address] [place] [address] Clare Mo MD [address] [place], [place] [phone] Foraminal stenosis of cervical region Social History [...] EST Telemedicine [facility] [address] [place] [address] Evelina Pimentel, WILBER [address] [place] [address] documented as of this encounter Visit Diagnoses Diagnosis Foraminal stenosis of cervical region documented in this encounter Care Teams Subeditor Relationship Specialty Start Date End Date Clare Mo MD [address] [place] [address] PCP - General Internal Medicine 03/17/17 documented as of this encounter
--- OUTSIDE RECORDS SUMMARY | 2025-08-31 09:13 | XMS_ITS | Encounter Summary ---
Author Organization [employer] Address 75 [facility] 7t [place] [address] Care Team Providers Care Safety Spec Name Role Phone Clare Mo MD Primary Care Provider +1- [phone] Encounter Details Date Type Department Care Team ([facility] Contact Info) Description 02/27/2025 Orders Only [facility] [address] [place], [place] [phone] Provider, MD Radhika Social History Tobacco Use [...] [facility] [address] [place] [address] Evelina Pimentel RN [address] [place] [address] documented as of this encounter Procedures Procedure [...] on filedocumented in this encounter Care Teams Safety Spec Relationship Specialty Start Date End Date Clare Mo MD [address] [place] [address] PCP - General Internal Medicine 03/17/17 documented as of this encounter
--- OUTSIDE RECORDS SUMMARY | 2025-08-31 09:13 | XMS_ITS | Encounter Summary ---
Author Organization [employer] Address [address] [place] [address] Care Team Providers Care Retail Sales Professional Name Role Phone Clare Mo MD Primary Care Provider +1- [phone] Encounter Details Date Type Department Care Team ([facility] Contact Info) Description 03/03/2023 Abstract [facility] [address] [place] [address] Kelsea Talley MA Social History Tobacco Use [...] Upcoming Encounters Date Type Department Care Team ([facility] Contact Info) Description 10/08/2025 10:30 AM EST Telemedicine [facility] [address] [place] [address] Evelina Pimentel, WILBER [address] [place] [address] documented as of this encounter Visit Diagnoses Not on filedocumented in this encounter Care Teams Retail Sales Professional Relationship Specialty Start Date End Date Clare Mo MD [address] [place] [address] PCP - General Internal Medicine 03/17/17 documented as of this encounter
--- OUTSIDE RECORDS SUMMARY | 2025-08-31 09:13 | XMS_ITS | Encounter Summary ---
Author Organization [employer] Address 75 [facility] 7[place], [place] [address] Care Team Providers Care Ginning Operator Name Role Phone Clare Mo MD Primary Care Provider +1- [phone] Reason for Visit * Reason Onset Date Comments Nurse Triage 04/03/2025 Encounter Details Date Type Department Care Team ([facility] Contact Info) Description 04/03/2025 Telephone [facility] MEDICINE [address] [place] [address] Clare Mo MD 505 [place], [place] [phone] Nurse Triage Social History Tobacco Use Types [...] FYI. Pt. Will be returning from [place] tomorrow. * Telephone Encounter - Cristobal Rodriguez - 04/03/2025 10:50 AM EDT Symptoms: Fall, Sore Throat, Hip Pain - Not From Injury, Headache Outcome: Schedule an urgent appointment (within 1 hour) or talk to a nurse or provider soon Reason: Severe pain now Please contact pt at [phone]. documented in this encounter Plan of Treatment Upcoming Encounters Date Type Department Care Team (Late st Contact Info) Description 10/08/2025 10:30 AM EST Telemedicine [facility] MED & PEDS [address] [place] [address] Evelina Pimentel, RN 505 [place], [place] [phone] documented as of this encounter Visit Diagnoses Not on filedocumented in this encounter Care Teams Ginning Operator Relationship Specialty Start Date End Date Clare Mo MD 505 [place] [address] PCP - General Internal Medicine 03/17/17 documented as of this encounter
--- OUTSIDE RECORDS SUMMARY | 2025-08-31 09:13 | XMS_ITS | Encounter Summary ---
Author Organization [employer] Address [address] [address] Care Team Providers Care Corporate Administrative Assistant Name Role Phone Clare Mo MD Primary Care Provider +1- [phone] Reason for Visit * Reason Onset Date Comments call back 02/12/2023 Encounter Details Date Type Department Care Team ([facility] Contact Info) Description 02/12/2023 Telephone [facility] MEDICINE 230 [place] [address] Clare Mo MD 505 [place] [address] call back Social History Tobacco Use Types [...] PCP cancelled script. Please contact pt at [phone] documented in this encounter Plan of Treatment Upcoming Encounters Date Type Department Care Team ([facility] st Contact Info) Description 10/08/2025 10:30 AM EST Telemedicine [facility] MED & PEDS 505 [place] [address] Evelina Pimentel, WILBER 505 [place] [address] documented as of this encounter Visit Diagnoses Not on filedocumented in this encounter Care Teams Corporate Administrative Assistant Relationship Specialty Start Date End Date Clare Mo MD 505 [place] [address] PCP - General Internal Medicine 03/17/17 documented as of this encounter
--- OUTSIDE RECORDS SUMMARY | 2025-08-31 09:13 | XMS_ITS ---
Author Organization [employer] Address [address] [place] [address] [place] [address] Care Team Providers Care Arborist Representative Name Role Phone Clare Mo MD Primary Care Provider [phone] COPY EDITOR Status:Enrolled (Active) Start date:01/06/2023 Enrollment date:01/06/2023 Case Team Name Relationship Phone Evelina Pimentel RN(Responsible Staff) Registered Nurse Continued Care and Services Coordination
--- OUTSIDE RECORDS SUMMARY | 2025-08-31 09:13 | XMS_ITS | Encounter Summary ---
Author Organization [employer] Address 75 [facility] 7 [place] [address] Care Team Providers Care Lining Maker Name Role Phone Clare Mo MD Primary Care Provider +1- [phone] Encounter Details Date Type Department Care Team ([facility] Contact Info) Description 02/06/2025 Orders Only [facility] [address] [place], [place] [phone] Provider, MD Radhika Social History Tobacco Use [...] [facility] 505 [place] [address] Evelina Pimentel, WILBER 505 [place] [address] documented as of this encounter Procedures Procedure [...] on filedocumented in this encounter Care Teams Lining Maker Relationship Specialty Start Date End Date Clare Mo MD 505 [place] [address] PCP - General Internal Medicine 03/17/17 documented as of this encounter
--- OUTSIDE RECORDS SUMMARY | 2025-08-31 09:13 | XMS_ITS | Encounter Summary ---
Author Organization [employer] Address 75 [facility] 7[place] [address] Care Team Providers Care Professional Driver Name Role Phone Clare Mo MD Primary Care Provider +1- [phone] Reason for Visit * Reason Onset Date Comments Med Refill 11/28/2024 Encounter Details Date Type Department Care Team ([facility] st Contact Info) Description 11/28/2024 Telephone [facility] MEDICINE 230 [place] [address] Clare Mo MD 505 [place], [place] [phone] Med Refill Social History Tobacco Use Types [...] 10-325 MG tablet To be sent to: [facility] [place], [place] - [address] [place] [address] documented in this encounter Plan of Treatment Upcoming Encounters Date Type Department Care Team (Late st Contact Info) Description 10/08/2025 10:30 AM EST Telemedicine [facility] MED & PEDS 505 [place] [address] Evelina Pimentel, WILBER 505 [place] [address] documented as of this encounter Visit Diagnoses Not on filedocumented in this encounter Care Teams Professional Driver Relationship Specialty Start Date End Date Clare Mo MD 505 [place] [address] PCP - General Internal Medicine 03/17/17 documented as of this encounter
--- OUTSIDE RECORDS SUMMARY | 2025-08-31 09:13 | XMS_ITS | Encounter Summary ---
Author Organization [employer] Address 75 [facility] 7 [place] [address] Care Team Providers Care Rail Track Layer Name Role Phone Clare Mo MD Primary Care Provider +1- [phone] Encounter Details Date Type Department Care Team ([facility] Contact Info) Description 07/19/2025 Orders Only [facility] CHC MED & PEDS 505 [place], [place] [phone] Clare Mo MD 505 [place], [place] [phone] Anxiety (Primary Dx) Social History Tobacco Use [...] Upcoming Encounters Date Type Department Care Team ([facility] st Contact Info) Description 10/08/2025 10:30 AM EST Telemedicine [facility] MED & PEDS 505 [place] [address] Evelina Pimentel, WILBER 505 [place] [address] documented as of this encounter Visit Diagnoses Diagnosis Anxiety- Primary Anxiety state, unspecified documented in this encounter Care Teams Rail Track Layer Relationship Specialty Start Date End Date Clare Mo MD 505 [place] [address] PCP - General Internal Medicine 03/17/17 documented as of this encounter
--- OUTSIDE RECORDS SUMMARY | 2025-08-31 09:13 | XMS_ITS | Encounter Summary ---
Author Organization [employer] Address [address] [place] [address] Care Team Providers Care Coyote Hunter Name Role Phone Clare Mo MD Primary Care Provider +1- [phone] Encounter Details Date Type Department Care Team ([facility] Contact Info) Description 03/03/2023 Abstract [facility] MED & PEDS 505 [place] [address] Kelsea Talley MA Social History Tobacco Use [...] Encounters Date Type Department Care Team ([facility] Contact Info) Description 10/08/2025 10:30 AM EST Telemedicine [facility] MED & PEDS 505 [place] [address] Evelina Pimentel, WILBER 505 [place] [address] documented as of this encounter Visit Diagnoses Not on filedocumented in this encounter Care Teams Coyote Hunter Relationship Specialty Start Date End Date Clare Mo MD [address] [place] [address] PCP - General Internal Medicine 03/17/17 documented as of this encounter
--- OUTSIDE RECORDS SUMMARY | 2025-08-31 09:13 | XMS_ITS | Encounter Summary ---
Author Organization [employer] Address [address] [place] [address] Care Team Providers Care Deposition Reporter Name Role Phone Clare Mo MD Primary Care Provider +1- [phone] Encounter Details Date Type Department Care Team ([facility] Contact Info) Description 02/12/2023 Orders Only [facility] CH[facility] MED & PEDS 505 [place], [place] [phone] Clare Mo MD 505 [place] [address] Chronic low back pain with sciatica, sciatica [...] Upcoming Encounters Date Type Department Care Team ([facility] Contact Info) Description 10/08/2025 10:30 AM EST Telemedicine [facility] CH[facility] MED & PEDS 505 [place], [place] [phone] Evelina Pimentel RN 505 [place] [address] documented as of this encounter Procedures Procedure Name Priority Date/Time Associated Diagnosis Comments PAP SMEAR Routine 03/08/2023 12:18 PM EDT Chronic low back pain with sciatica, sciatica laterality unspecified, unspecified back pain laterality documented in this encounter Results * Pap Smear (03/08/2023 12:18 PM EDT) 03/08/2023 12:1 8 PM EDT 03/10/2023 8:55 AM EDT [facility] - 03/27/2023 3:23 PM EDT ----- ------- Name: May Beckwith Age/Sex: 42/F : 1980 Unit#: [id number] Attend Dr: Jeff William MD Re03/08/23 Status: DEP REF Location: HO.LNP Disch: ----- ------- SPEC : [id number] RECD: 03/10/23 STATUS: PO LYNCH NUM: [id number] BRANDON: 03/08/23-[address]: Jeff William MD ENTERED: 03/10/2399 SP TYPE: Pap Smr OTHR DR: Clare Mo MD ORDERED: Pap Smear Interpretation Satisfactory for evaluation. No endocervical cells seen. Negative for intraepithelial lesion or malignancy. HPV mRNA E6/E7: NOT DETECTED This assay detects E6/E7 viral messenger RNA (mRNA) from 14 high-risk HPV types (16, 18, 31, 33, 35, 39, 45, 51, 52, 56, 58, 59, 66, 68) HPV testing performed by [facility], [place], [place]. See reference laboratory portion of the EMR for entire report. Clinical Information LMP: 03/05/23 Previous PAP test: Unknown date/findings Material Received ThinPrep-Cervical Copies To: Clare Mo MD [address] [place] [address] Jeff William MD [address] [place] [address] Dr. Matthews [address] [place] [address] ----- ------- Signed (signature on file) Alondra Flores Tyrell 03/27/23 1523 ----- ------- END OF REPORT [facility] External Provider LAB CYT NATALYA ORDERABLES Final Result [facility] [address] [place] [address] [phone] documented in this encounter Visit Diagnoses Diagnosis Chronic low back pain with sciatica, sciatica laterality unspecified, unspecified back pain laterality documented in this encounter Care Teams Deposition Reporter Relationship Specialty Start Date End Date Clare Mo MD [address] [place] [address] PCP - General Internal Medicine 03/17/17 documented as of this encounter
--- OUTSIDE RECORDS SUMMARY | 2025-08-31 09:13 | XMS_ITS | Encounter Summary ---
Author Organization [employer] Address 75 [facility] 7[place], [place] [address] Care Team Providers Care Can Dryer Name Role Phone Clare Mo MD Primary Care Provider +1- [phone] Reason for Visit * Reason Onset Date Comments Medication Question 11/29/2023 Encounter Details Date Type Department Care Team ([facility] Contact Info) Description 11/29/2023 Telephone [facility] MEDICINE [address] [place] [address] Clare Mo MD 505 [place], [place] [phone] Medication Question Social History Tobacco Use Types [...] information was provided. Please contact pt at [phone]. documented in this encounter Plan of Treatment Upcoming Encounters Date Type Department Care Team ([facility] st Contact Info) Description 10/08/2025 10:30 AM EST Telemedicine [facility] CHC MED & PEDS 505 [place] [address] Evelina Pimentel, WILBER 505 [place] [address] documented as of this encounter Visit Diagnoses Not on filedocumented in this encounter Care Teams Can Dryer Relationship Specialty Start Date End Date Clare Mo MD 505 [place] [address] PCP - General Internal Medicine 03/17/17 documented as of this encounter
--- OUTSIDE RECORDS SUMMARY | 2025-08-31 09:13 | XMS_ITS | Encounter Summary ---
Author Organization [employer] Address 75 [facility] 7 [place] [address] Care Team Providers Care Pest Technician Name Role Phone Clare Mo MD Primary Care Provider +1- [phone] Reason for Visit * Reason Onset Date Comments Med Refill 01/09/2025 Encounter Details Date Type Department Care Team ([facility] st Contact Info) Description 01/09/2025 Refill [facility] MEDICINE 230 [place] [address] Clare Mo MD 505 [place] [address] Chronic low back pain with sciatica, sciatica [...] ([facility] st Contact Info) Description 10/08/2025 10:30 AM EST Telemedicine [facility] CH[facility] MED & PEDS 505 [place] [address] Evelina Pimentel, WILBER 505 [place] [address] documented as of this encounter Visit Diagnoses Diagnosis Chronic low back pain with sciatica, sciatica laterality unspecified, unspecified back pain laterality documented in this encounter Care Teams Pest Technician Relationship Specialty Start Date End Date Clare Mo MD 505 [place] [address] PCP - General Internal Medicine 03/17/17 documented as of this encounter
--- OUTSIDE RECORDS SUMMARY | 2025-08-31 09:13 | XMS_ITS | Encounter Summary ---
Author Organization [employer] Address [address] [place] [address] Care Team Providers Care Feed Weigher Name Role Phone Clare Mo MD Primary Care Provider +1- [phone] Encounter Details Date Type Department Care Team (Latest Contact Info) Description 08/16/2020 Abstract [facility] Dental, Provider, DDS Social History Tobacco [...] 10/08/2025 10:30 AM EST Telemedicine [facility] CH[facility] MED & PEDS 505 [place] [address] Evelina Pimentel RN 505 [place] [address] documented as of this encounter Visit Diagnoses Not on filedocumented in this encounter Care Teams Feed Weigher Relationship Specialty Start Date End Date Clare Mo MD 505 [place] [address] PCP - General Internal Medicine 03/17/17 documented as of this encounter
--- OUTSIDE RECORDS SUMMARY | 2025-08-31 09:13 | XMS_ITS | Encounter Summary ---
Author Organization [employer] Address [address] [place] [address] Care Team Providers Care Sales And Operations Trainee Name Role Phone Clare Mo MD Primary Care Provider +1- [phone] Reason for Visit * Reason Onset Date Comments Med Refill 12/18/2024 Medications 12/18/2024 Encounter Details Date Type Department Care Team ([facility] st Contact Info) Description 12/18/2024 Refill [facility] CHC MED & PEDS 505 [place] [address] Clare Mo MD 505 [place] [address] Chronic low back pain with sciatica, sciatica [...] Health Center agreement * Telephone Encounter - Eveilna Pimentel RN - 12/18/2024 3:43 PM EDT TC to pt to check on the states of police report. Pt stated she is unable to fill out a report in [place], [place] since the incident (TC 12/07/24) happened in [place]. Pt stated she can go to police station and lie that incident happened in [place] to make us happy . Pt states [...] Upcoming Encounters Date Type Department Care Team ([facility] st Contact Info) Description 10/08/2025 10:30 AM EST Telemedicine [facility] CH[facility] MED & PEDS 505 [place] [address] Evelina Pimentel RN 505 [place] [address] documented as of this encounter Visit Diagnoses Diagnosis Chronic low back pain with sciatica, sciatica laterality unspecified, unspecified back pain laterality documented in this encounter Care Teams Sales And Operations Trainee Relationship Specialty Start Date End Date Clare Mo MD 505 [place] [address] PCP - General Internal Medicine 03/17/17 documented as of this encounter
--- OUTSIDE RECORDS SUMMARY | 2025-08-31 09:13 | XMS_ITS | Encounter Summary ---
Author Organization [employer] Address 75 [facility] 7 [place] [address] Care Team Providers Care Printing Sign Machine Operator Name Role Phone Clare Mo MD Primary Care Provider +1- [phone] Reason for Visit * Reason Comments Med Refill Encounter Details Date Type Department Care Team ([facility] st Contact Info) Description 10/11/2023 Refill [facility] MEDICINE 230 [place] [address] Clare Mo MD 505 [place], [place] [phone] Chronic low back pain, unspecified back pain [...] the past 12 months, has t he [employer] gas, oil or water company threatened to [...] Info) Description 10/08/2025 10:30 AM EST Telemedicine [facility] CH[facility] MED & PEDS 505 [place] [address] Evelina Pimentel, WILBER 505 [place] [address] documented as of this encounter Visit Diagnoses Diagnosis Chronic low back pain, unspecified back pain laterality, unspecified whether sciatica present documented in this encounter Care Teams Printing Sign Machine Operator Relationship Specialty Start Date End Date Clare Mo MD 505 [place] [address] PCP - General Internal Medicine 03/17/17 documented as of this encounter
--- OUTSIDE RECORDS SUMMARY | 2025-08-31 09:13 | XMS_ITS | Encounter Summary ---
Author Organization [employer] Address 75 [facility] 7t [place] [address] Care Team Providers Care Dental Mold Maker Name Role Phone Clare Mo MD Primary Care Provider +1- [phone] Encounter Details Date Type Department Care Team ([facility] Contact Info) Description 06/20/2024 Orders [address] [facility] [address] [place] [address] Clare Mo MD [address] [place] [address] Chronic low back pain with sciatica, sciatica [...] [facility] 505 [place] [address] Evelina Pimentel, WILBER 505 [place] [address] documented as of this encounter Visit Diagnoses Diagnosis Chronic low back pain with sciatica, sciatica laterality unspecified, unspecified back pain laterality Anxiety Anxiety state, unspecified documented in this encounter Care Teams Dental Mold Maker Relationship Specialty Start Date End Date Clare Mo MD [address] [place] [address] PCP - General Internal Medicine 03/17/17 documented as of this encounter
--- OUTSIDE RECORDS SUMMARY | 2025-08-31 09:13 | XMS_ITS | Encounter Summary ---
Author Organization [employer] Address [address] [place] [address] Care Team Providers Care Men'S Locker Room Attendant Name Role Phone Clare Mo MD Primary Care Provider +1 [phone] Reason for Referral * Imaging (Routine) - Closed Specialty Diagnoses / Procedures Referred By Contac t Referred To Contact Radiology Diagnoses Low back pain at multiple sites Procedures MR Lumbar Spine w/o Contrast Clare Mo MD [address] [place], [place] Phone: tel: fax: [facility] [address] [place] [address] Phone: tel: fax: Referral ID Status Reason Start Date Expiration Date Visits Re quested Visits Authorized [id number] Closed 01/10/2025 01/10/2026 1 1 * Imaging (Urgent) - Closed Specialty Diagnoses / Procedures Referred By Contac t Referred To Contact Radiology Diagnoses Foraminal stenosis of cervical region Procedures MR Cervical Spine w/o Contrast Clare Mo MD [address] [place] [address] Phone: tel: fax: [facility] [address] [place] [address] Phone: tel: fax: Referral ID Status Reason Start Date Expiration Date Visits Re quested Visits Authorized [id number] Closed 01/03/2025 01/03/2026 1 1 Encounter Details Date Type Department Care Team (Late st Contact Info) Description 01/03/2025 Orders Only [facility] CH[facility] MED & PEDS 505 [place] [address] Clare Mo MD 505 [place] [address] Foraminal stenosis of cervical region (Primary Dx); [...] Info) Description 10/08/2025 10:30 AM EST Telemedicine [facility] CHC MED & PEDS 505 [place] [address] Evelina Pimentel, RN 505 [place] [address] documented as of this encounter Procedures Procedure [...] sites documented in this encounter Care Teams Men'S Locker Room Attendant Relationship Specialty Start Date End Date Clare Mo MD 505 [place] [address] PCP - General Internal Medicine 03/17/17 documented as of this encounter
--- OUTSIDE RECORDS SUMMARY | 2025-08-31 09:13 | XMS_ITS | Encounter Summary ---
Author Organization [employer] Address [address] [place] [address] Care Team Providers Care Wholesale Diamond Broker Name Role Phone Clare Mo MD Primary Care Provider +1- [phone] Encounter Details Date Type Department Care Team ([facility] Contact Info) Description 05/14/2023 Orders Only [facility] MED & PEDS 505 [place], [place] [phone] Clare Mo MD 505 [place], [place] [phone] Pain in both hands (Primary Dx); Chronic [...] Upcoming Encounters Date Type Department Care Team ([facility] Contact Info) Description 10/08/2025 10:30 AM EST Telemedicine [facility] MED & PEDS 505 [place], [place] [phone] Evelina Pimentel RN 505 [place], [place] [phone] documented as of this encounter Visit Diagnoses Diagnosis Pain in both hands- Primary Chronic migraine without aura without status migrainosus, not intractable Anxiety Anxiety state, unspecified Chronic midline low back pain with sciatica, sciatica laterality unspecified documented in this encounter Care Teams Wholesale Diamond Broker Relationship Specialty Start Date End Date Clare Mo MD [address] [place] [address] PCP - General Internal Medicine 03/17/17 documented as of this encounter
--- OUTSIDE RECORDS SUMMARY | 2025-08-31 09:13 | XMS_ITS | Encounter Summary ---
Author Organization [employer] Address 75 [facility] 7[facility] [place] [place] [address] Care Team Providers Care Profiling Machine Setup Operator Name Role Phone Clare Mo MD Primary Care Provider +1- [phone] Reason for Visit * Reason Onset Date Comments Med Refill 02/05/2025 Encounter Details Date Type Department Care Team ([facility] st Contact Info) Description 02/05/2025 Refill [facility] MEDICINE 230 [place] [address] Clare Mo MD 505 [place], [place] [phone] Foraminal stenosis of cervical region Social History [...] [facility] 505 [place] [address] Evelina Pimentel RN 505 [place] [address] documented as of this encounter Visit Diagnoses Diagnosis Foraminal stenosis of cervical region documented in this encounter Care Teams Profiling Machine Setup Operator Relationship Specialty Start Date End Date Clare Mo MD 505 [place] [address] PCP - General Internal Medicine 03/17/17 documented as of this encounter
--- OUTSIDE RECORDS SUMMARY | 2025-08-31 09:13 | XMS_ITS | Encounter Summary ---
Author Organization [employer] Address 75 [facility] 7[place] [address] Care Team Providers Care Petroleum Refinery Worker Name Role Phone Clare Mo MD Primary Care Provider +1- [phone] Reason for Visit * Reason Onset Date Comments Medication Question 01/31/2025 Encounter Details Date Type Department Care Team ([facility] Contact Info) Description 01/31/2025 Telephone [facility] MEDICINE [address] [place] [address] Clare Mo MD 505 [place], [place] [phone] Medication Question Social History Tobacco Use Types [...] can't take the medication every 8 hours. [phone] documented in this encounter Plan of Treatment Upcoming Encounters Date Type Department Care Team (Late st Contact Info) Description 10/08/2025 10:30 AM EST Telemedicine [facility] MED & PEDS 505 [place] [address] Evelina Pimentel RN 505 [place] [address] documented as of this encounter Visit Diagnoses Not on filedocumented in this encounter Care Teams Petroleum Refinery Worker Relationship Specialty Start Date End Date Clare Mo MD 505 [place] [address] PCP - General Internal Medicine 03/17/17 documented as of this encounter
--- OUTSIDE RECORDS SUMMARY | 2025-08-31 09:13 | XMS_ITS | Encounter Summary ---
Author Organization [employer] Address 75 [facility] 7 [place] [address] Care Team Providers Care Firebrick And Refractory Tile Repairer Name Role Phone Clare Mo MD Primary Care Provider +1- [phone] Encounter Details Date Type Department Care Team ([facility] Contact Info) Description 05/02/2025 Orders Only [facility] CHC MED & PEDS [address] [place], [place] [phone] Clare Mo MD 505 [place] [address] Cervical spondylosis (Primary Dx); Facet arthritis, degenerative, [...] [facility] [address] [place] [address] Evelina Pimentel, WILBER 505 [place] [address] documented as of this encounter Visit Diagnoses Diagnosis Cervical spondylosis- Primary Cervical spondylosis without myelopathy Facet arthritis, degenerative, lumbar spine Mild intermittent asthma without complication documented in this encounter Care Teams Firebrick And Refractory Tile Repairer Relationship Specialty Start Date End Date Clare Mo MD 505 [place] [address] PCP - General Internal Medicine 03/17/17 documented as of this encounter
--- OUTSIDE RECORDS SUMMARY | 2025-08-31 09:13 | XMS_ITS | Encounter Summary ---
Author Organization [employer] Address 75 [facility] [address] [place] [address] Care Team Providers Care Steel Grinder Name Role Phone Clare Mo MD Primary Care Provider +1- [phone] Reason for Visit * Reason Onset Date [...] ([facility] st Contact Info) Description 09/22/2022 Telephone [facility] ADULT DENTAL [address] [place] [address] Shukri, Seema [address] [place], [place] [phone] treatment (Patient called in looking to have [...] Info) Description 10/08/2025 10:30 AM EST Telemedicine [facility] CHC MED & PEDS 505 [place] [address] Evelina Pimentel, WILBER 505 [place] [address] documented as of this encounter Visit Diagnoses Not on filedocumented in this encounter Care Teams Steel Grinder Relationship Specialty Start Date End Date Clare Mo MD 505 [place] [address] PCP - General Internal Medicine 03/17/17 documented as of this encounter
--- OUTSIDE RECORDS SUMMARY | 2025-08-31 09:13 | XMS_ITS | Encounter Summary ---
Author Organization [employer] Address 75 [facility] [place] [address] Care Team Providers Care Float Nurse Name Role Phone Clare Mo MD Primary Care Provider +1- [phone] Reason for Visit * Reason Onset Date Comments Med Refill 01/03/2025 Encounter Details Date Type Department Care Team ([facility] st Contact Info) Description 01/03/2025 Telephone [facility] MEDICINE [address] [place] [address] Clare Mo MD [address] [place], [place] [phone] Med Refill Social History Tobacco Use Types [...] 1 MG tablet To be sent to: [facility] - [place], [place] - [address] [place] [address] documented in this encounter Plan of Treatment Upcoming Encounters Date Type Department Care Team (Late st Contact Info) Description 10/08/2025 10:30 AM EST Telemedicine [facility] CHC MED & PEDS 505 [place] [address] Evelina Pimentel RN 505 [place] [address] documented as of this encounter Visit Diagnoses Not on filedocumented in this encounter Care Teams Float Nurse Relationship Specialty Start Date End Date Clare Mo MD 505 [place] [address] PCP - General Internal Medicine 03/17/17 documented as of this encounter
--- OUTSIDE RECORDS SUMMARY | 2025-08-31 09:14 | XMS_ITS | Encounter Summary ---
Author Organization [employer] Address 75 [facility] [place] [address] Care Team Providers Care Lighting Equipment Operator Name Role Phone Clare Mo MD Primary Care Provider +1- [phone] Reason for Visit * Reason Onset Date Comments Call Back Request 11/30/2023 Encounter Details Date Type Department Care Team ([facility] Contact Info) Description 11/30/[address] [facility] MEDICINE [address] [place] [address] Clare Mo MD 505 [place] [address] Call Back Request Social History Tobacco Use [...] Upcoming Encounters Date Type Department Care Team ([facility] st Contact Info) Description 10/08/2025 10:30 AM EST Telemedicine [facility] MED & PEDS 505 [place] [address] Evelina Pimentel RN 505 [place] [address] documented as of this encounter Visit Diagnoses Not on filedocumented in this encounter Care Teams Lighting Equipment Operator Relationship Specialty Start Date End Date Clare Mo MD 505 [place] [address] PCP - General Internal Medicine 03/17/17 documented as of this encounter
--- OUTSIDE RECORDS SUMMARY | 2025-08-31 09:14 | XMS_ITS | Encounter Summary ---
Author Organization [employer] Address 75 [facility] 7 [place] [address] Care Team Providers Care Noteman Name Role Phone Clare Mo MD Primary Care Provider +1- [phone] Encounter Details Date Type Department Care Team ([facility] Contact Info) Description 11/29/2023 Orders Only [facility] CHC MED & PEDS 505 [place], [place] [phone] Clare Mo MD 505 [place] [address] Chronic low back pain with sciatica, sciatica [...] the past 12 months, has t he [employer], gas, oil or water company threatened to [...] Info) Description 10/08/2025 10:30 AM EST Telemedicine [facility] CHC MED & PEDS 505 [place] [address] Evelina Pimentel, WILBER 505 [place] [address] documented as of this encounter Visit Diagnoses Diagnosis Chronic low back pain with sciatica, sciatica laterality unspecified, unspecified back pain laterality- Primary documented in this encounter Care Teams Noteman Relationship Specialty Start Date End Date Clare Mo MD 505 [place] [address] PCP - General Internal Medicine 03/17/17 documented as of this encounter
== END 2025-08-31 08:54 | disposition home or self-care (01) ==
LOC: HO.XRAY 08:53
PROVIDERS: PCP Internal Medicine; Visit Provider Internal Medicine
DX: G89.29 Other chronic pain (principal); M54.50 Low back pain, unspecified
CPT/HCPCS: 72110

== ENCOUNTER → 2025-08-31 08:58 | Outpatient (BNV) | payer OTHER, SELFPAY | PROVIDERS: PCP Internal Medicine; Visit Provider Radiology Diagnostic Radiology | DX: M48.061 Spinal stenosis, lumbar region without neurogenic claudication (principal) | CPT/HCPCS: 72110 ==

== ENCOUNTER 2025-09-11 10:05 | Outpatient (REF) | payer OTHER, SELFPAY ==
--- OUTSIDE RECORDS SUMMARY | 2025-09-11 09:00 | XMS_ITS | Encounter Summary ---
Author Organization [employer] Address [address] [place] [address] Care Team Providers Care Childcare Aide Name Role Phone Clare Mo MD Primary Care Provider +1 [phone] Reason for Referral * Consultation (Urgent) - Pending Review Specialty Diagnoses / Procedures Referred By Marylou camp Referred To Contact Neurology Diagnoses Memory disturbance Clare Mo MD 505 [place] [address] Phone: tel: fax: Referral ID Status Reason Start Date Expiration Date Visits Requested Visits Authorized [id number] Pending Review Specialty Services Required 09/11/2026 1 1 * Imaging (Routine) - Pending Review Specialty Diagnoses / Procedures Referred By Marylou camp Referred To Contact Radiology Diagnoses Memory disturbance Procedures CT Head w/o Contrast Clare Mo MD 505 [place] [address] Phone: tel: fax: [address] [address] Phone: tel: fax: Referral ID Status Reason Start Date Expiration Date V isits Requested Visits Authorized [id number] Pending Review 09/11/2025 09/11/2026 1 1 Reason for Visit * Reason Comments Memory Loss Encounter Details Date Type Department Care Team ([facility] st Contact Info) Description 09/11/2025 9:00 AM EST Office Visit [facility] CHC MED & PEDS [address] [place] [address] Clare Mo MD 505 [place] [address] Memory disturbance (Primary Dx); Chronic left-sided low back pain, unspecified whether sciatica present; Dietary counseling; Exercise counseling; Class 1 obesity due to excess calories with serious comorbidity and body mass index (BMI) of 32.0 to 32.9 in adult Social History Tobacco Use Types Packs/Day Years [...] the past 12 months, has t he [employer], gas, oil or water [employer] threatened to shut off services in your [...] Sign Reading Time Taken Comments Blood Pressure 115/69 09/11/2025 9:09 AM EST Pulse 83 09/11/2025 9:09 AM EST Temperature - - Respiratory Rate 20 09/11/2025 9:09 AM EST Oxygen Saturation 96% 09/11/2025 9:09 AM EST Inhaled Oxygen Concentration - - Weight 87.1 kg (192 lb) 09/11/2025 9:09 AM EST Height 162.6 cm (5' 4 ) 09/11/2025 9:09 AM EST Body Mass Index 32.96 09/11/2025 9:09 AM EST documented in this encounter Progress Notes * Clare Mo MD - 09/11/2025 9:00 AM EST SUBJECTIVE May Macedo is a 45 y.o. female who presents for Memory Loss. Memory Loss Episode onset: august 15, Onset quality is sudden. Symptoms associated with memory loss include bladder incontinence, change in short-term memory, change in long-term memory, difficulty recalling words, disorientation outside familiar environments and decline in function. Behavorial problems for memory loss include suspiciousness. Family and/or patient concerns for memory loss include cooking and preparing meals. The family does not monitor medication usage. Patient lives with adult children. Patient lives in a/an house. Additional narrative: Associated with difficulty swallowing. Pt reports chocking on solid food. History provided by a significant other. May Macedo, 45 years old, female - Memory loss starting suddenly after a fall on August 15, 2025, at [facility], landing on back, withpain from neck down to buttock - CT scan of the brain performed after the fall, no bleeding found - Difficulty remembering personal information such as name, address, and phone number - Takes significantly longer to complete tasks, such as grocery shopping - Both short-term and long-term memory affected - Writing things down to remember words - Disorientation and confusion reported - Light and noise sensitivity - Headaches associated with memory loss - No bladder or bowel incontinence - Lives with son in a house - Weight gain from 184 lbs in August 2023 to 192 lbs in August 2025, with a BMI of 32 - Expressed intention to lose weight, focusing on eating vegetables Problem List[1] Allergies[2] Medications Ordered Prior to Encounter[3] Review of Systems Constitutional: Positive for fatigue. Negative for chills and diaphoresis. Gastrointestinal: Negative for anal bleeding, blood in stool and constipation. Musculoskeletal: Positive for back pain, myalgias and neck pain. Skin: Negative for rash. Neurological: Positive for headaches. Memory disturbances OBJECTIVE Vitals: 09/11/25 0909 BP: 115/69 BP Location: Left arm Patient Position: Sitting BP Cuff Size: Adult long Pulse: 83 Resp: 20 SpO2: 96% Weight: 192 lb (87.1 kg) Height: 5' 4 (1.626 m) Physical Exam Constitutional: General: She is not in acute distress. Appearance: Normal appearance. She is ill-appearing. She is not toxic-appearing or diaphoretic. Cardiovascular: Rate and Rhythm: Normal rate. Pulmonary: Effort: Pulmonary effort is normal. Neurological: Mental Status: She is alert. Sensory: Sensory deficit present. Motor: Weakness present. Psychiatric: Attention and Perception: Attention and perception normal. Assessment/Plan Assessment/Plan Diagnoses and all orders for this visit: Memory disturbance - CT Head w/o Contrast; Future - Referral to Neurology; Future - CBC auto differential; Future - Comprehensive Metabolic Panel; Future - TSH with Reflex to Free T4; Future - Vitamin B12/Folate, Serum Panel; Future Chronic left-sided low back pain, unspecified whether sciatica present - ketorolac (Toradol) injection 30 mg - ketorolac (Toradol) 10 MG tablet; Take 1 tablet (10 mg) by mouth every 6 (six) hours if needed for moderate pain for up to 5 days. Dietary counseling Exercise counseling Class 1 obesity due to excess calories with serious comorbidity and body mass index (BMI) of 32.0 to 32.9 in adult Dietary Recommendations: Fruits, vegetables, whole grains, protein foods, and fat-free or low-fat dairy products are healthychoices. Eat different types of protein foods in your diet. This can include seafood, lean meats, poultry, beans, peas, lentils, nuts, seeds, soy products, and eggs. Limit foods and beverages higher in added sugars, saturated fat, and sodium. Exercise Recommendations: At least 150 minutes of moderate-intensity physical activity per week, or an equivalent combinationof moderate- and vigorous-intensity activity Memory disturbance: - Memory loss noted since fall on August 15, 2025. Possible concussion considered. Differential includes post-concussive syndrome and other etiologies for cognitive impairment. - Administered memory loss questionnaire. Ordered repeat CT scan of the brain. Ordered blood work including TSH and other labs for memory loss evaluation. Placed urgent referral to concussion clinic. Chronic left-sided low back pain, unspecified whether sciatica present: - Chronic low back pain ongoing since fall on August 15, 2025. - Administered Toradol injection for pain relief. Prescribed Toradol pills for a few days. Recommended physical therapy as tolerated. Mass of right anterior chest: - Mass of right anterior chest under evaluation. - Confirmed ultrasound appointment scheduled for October 31, 2024. Follow-up pending imaging results. Weight gain and elevated BMI: - BMI 32, weight increased from 184 lbs (August 2023) to 192 lbs (August 2025). Weight gain contributing to back pain. - Recommended dietary modification with 5 servings of fruits and vegetables daily. Advised substitution of fruit for sweet snacks. Encouraged weight loss. This note was drafted using Ambient (AI) technology. The patient/patient's guardian has been informed and has consented to the use of this technology: Yes [1] Patient Active Problem List Diagnosis Chronic low back pain Depressed bipolar I disorder (CMS/HCC) (HCC) Migraine Mood disorder (CMS/HCC) Panic disorder Posttraumatic stress disorder Vitamin D [...] 25 tablet 0 Blood Glucose Monitoring Suppl ([facility]) w/Device kit Use to test blood sugar 1 times daily 1 kit 0 Blood Pressure kit To check the BP daily 1 kit 0 cholecalciferol (Vitamin D-3) 25 MCG (1000 UT) tablet Take 1 tablet (25 mcg) by mouth in the morning. 60 tablet 11 cyclobenzaprine (Flexeril) 10 MG tablet TAKE ONE TABLET TWICE DAILY 60 tablet 3 dexAMETHasone (Decadron) 4 MG tablet Take 1 tablet (4 mg) by mouth Once per day. 3 tablet 0 Diclofenac Sodium 1 % gel To use [...] Elastic Bandages & Supports (Wrist Brace Deluxe) mis Bilateral hand pain. Please provide a brace that can cover the hands as per pt's request. 2 each 0 Elastic Bandages & Supports (Wrist Brace Deluxe) [facility] Please provide a brace that can cover [...] until medicalassistance becomes available. 2 each 1 ptvoahyh-xojcbfkqs-ccyapqfjaumean (Cortisporin) 3.5-14193-[address] 3 to 4 DROPS IN AFFECTED EAR(S) FOUR TIMES DAILY FOR 10 DAYS ondansetron (Zofran) 4 MG tablet take 2 tablet by oral route 2 times every day [] oxyCODONE (Roxicodone) 5 MG immediate release tablet Take 1 tablet (5 mg) by mouth every 6 (six) hours if needed for severe pain for up to 7 days. 15 tablet 0 oxyCODONE-acetaminophen (Percocet) 10-325 MG tablet Take 1 tablet by mouth every 8 (eight) hours ifneeded for severe pain. 42 tablet 0 pregabalin (Lyrica) 200 MG capsule TAKE ONE CAPSULE BY MOUTH TWICE DAILY 60 capsule 0 Rhubarb (Estroven Complete) 4 MG tablet 1 tab once a day 30 tablet 3 tiZANidine (Zanaflex) 4 MG tablet Take 1 tablet (4 mg) by mouth every 6 (six) hours if needed for muscle spasms for up to 10 days. 40 tablet 0 No current facility-administered medications on file prior to visit. documented in this encounter Plan of Treatment Upcoming Encounters Date Type Department Care Team (Late st Contact Info) Description 10/08/2025 10:30 AM EST Telemedicine [facility] MED & PEDS [address] [place] [address] Evelina Pimentel, RN [address] [place] [address] Scheduled Orders Name Type Priority Associated Diagnoses Orde r Schedule CT Head w/o Contrast Imaging Routine Memory disturbance Expected: 09/11/2025, Expires: 09/11/2026 CBC auto differential Lab Routine Memory disturbance Expected: 09/11/2025 (Approximate), Expires: 09/11/2026 Comprehensive Metabolic Panel Lab Routine Memory disturbance Expected: 09/11/2025 (Approximate), Expires: 09/11/2026 TSH with Reflex to Free T4 Lab Routine Memory disturbance Expected: 09/11/2025 (Approximate), Expires: 09/11/2026 Vitamin B12/Folate, Serum Panel Lab Routine Memory disturbance Expected: 09/11/2025, Expires: 09/11/2026 Scheduled Referrals Name Type Priority Associated Diagnoses Orde r Schedule Referral to Neurology Outpatient Referral Urgent Memory disturbance Expected: 09/11/2025 (Approximate), Expires: 09/11/2026 documented as of this encounter Visit Diagnoses Diagnosis Memory disturbance- Primary Memory loss Chronic left-sided low back pain, unspecified whether sciatica present Dietary counseling Dietary surveillance and counseling Exercise counseling Class 1 obesity due to excess calories with serious comorbidity and body mass index (BMI) of 32.0 to 32.9 in adult documented in this encounter Administered Medications Inactive Administered Medications - up to 3 most recent administrations Medication Order MAR Action Action Date Dose Rate Site ketorolac (Toradol) injection 30 mg 30 mg, Intramuscular, Once, On Wed09/11/25 at 0930, For 1 doseIndications:Chronic left-sided low back pain, unspecified whether sciatica present Given 09/11/2025 9:30 AM EST 30 mg Left Deltoid documented in this encounter Care Teams Childcare Aide Relationship Specialty Start Date End Date Clare Mo MD [address] [place] [address] PCP - General Internal Medicine 03/17/17 documented as of this encounter
--- OUTSIDE RECORDS SUMMARY | 2025-09-11 13:17 | XMS_ITS | Encounter Summary ---
Author Organization [employer] Address [address] [address] Care Team Providers Care Director Content Marketing Name Role Phone Clare Mo MD Primary Care Provider +1- [phone] Reason for Visit * Reason Comments Med Refill Encounter Details Date Type Department Care Team ([facility] st Contact Info) Description 04/05/2023 Refill [facility] CHC MED & PEDS [address] [place], [place] [phone] Clare Mo MD 505 [place] [address] Chronic midline low back pain with sciatica, [...] Description 10/08/2025 10:30 AM EST Telemedicine [facility] MED & PEDS [address] [place] [address] Evelina Pimentel RN 505 [place] [address] documented as of this encounter Visit Diagnoses Diagnosis Chronic midline low back pain with sciatica, sciatica laterality unspecified Chronic low back pain, unspecified back pain laterality, unspecified whether sciatica present documented in this encounter Care Teams Director Content Marketing Relationship Specialty Start Date End Date Clare Mo MD [address] [place] [address] PCP - General Internal Medicine 03/17/17 documented as of this encounter
--- OUTSIDE RECORDS SUMMARY | 2025-09-11 13:17 | XMS_ITS | Encounter Summary ---
Author Organization [employer] Address [address] [place] [address] Care Team Providers Care Supervisor Mold Construction Name Role Phone Clare Mo MD Primary Care Provider +1- [phone] Encounter Details Date Type Department Care Team ([facility] Contact Info) Description 03/23/2023 Orders Only [facility] CHC MED & PEDS [address] [place] [address] Clare Mo MD [address] [place] [address] Chronic low back pain with sciatica, sciatica [...] Upcoming Encounters Date Type Department Care Team ([facility] Contact Info) Description 10/08/2025 10:30 AM EST Telemedicine [facility] CHC MED & PEDS [address] [place] [address] Evelina Pimentel, RN [address] [place] [address] documented as of this encounter Visit Diagnoses Diagnosis Chronic low back pain with sciatica, sciatica laterality unspecified, unspecified back pain laterality- Primary Vitamin D deficiency documented in this encounter Care Teams Supervisor [employer] Construction Relationship Specialty Start Date End Date Clare Mo MD [address] [place] [address] PCP - General Internal Medicine 03/17/17 documented as of this encounter
--- OUTSIDE RECORDS SUMMARY | 2025-09-11 13:17 | XMS_ITS | Encounter Summary ---
Author Organization [employer] Address [address] [address] Care Team Providers Care Travel Attendants Name Role Phone Clare Mo MD Primary Care Provider +1- [phone] Reason for Visit * Reason Onset Date Comments Results 04/02/2023 Encounter Details Date Type Department Care Team ([facility] Contact Info) Description 04/02/2023 Telephone [facility] CHC MED & PEDS [address] [place], [place] [phone] Clare Mo MD [address] [place] [address] Results Social History Tobacco Use Types Packs/Day [...] [facility] MED & PEDS [address] [place] [address] Evelina Pimentel RN [address] [place] [address] documented as of this encounter Visit Diagnoses Diagnosis Chronic midline low back pain with sciatica, sciatica laterality unspecified documented in this encounter Care Teams Travel Attendants Relationship Specialty Start Date End Date Clare Mo MD [address] [place] [address] PCP - General Internal Medicine 03/17/17 documented as of this encounter
--- OUTSIDE RECORDS SUMMARY | 2025-09-11 13:17 | XMS_ITS | Encounter Summary ---
Author Organization [employer] Address [address] [address] Care Team Providers Care Botany Laboratory Assistant Name Role Phone Clare Mo MD Primary Care Provider +1- [phone] Reason for Referral * Consultation (Routine) - Closed Specialty Diagnoses / Procedures Referred By Contac t Referred To Contact Orthopaedic Surgery Diagnoses Right hip pain SI joint arthritis (CMS/HCC) Clare Mo MD [address] [place] [address] Phone: tel: fax: [facility] [address] [place] [address] [address] [place] [address] Phone: tel: fax: Referral ID Status Reason Start Date Expiration Date V isits Requested Visits Authorized [id number] Closed Specialty Services Required 09/07/2024 09/07/2025 6 6 Encounter Details Date Type Department Care Team ([facility] Contact Info) Description 09/04/2024 Orders Only [facility] CHC MED & PEDS [address] [place], [place] [phone] Clare Mo MD [address] [place], [place] [phone] Right hip pain (Primary Dx); SI joint [...] Info) Description 10/08/2025 10:30 AM EST Telemedicine [facility] CHC MED & PEDS [address] [place] [address] Evelina Pimentel, WILBER [address] [place] [address] Scheduled Referrals Name Type Priority Associated Diagnoses Order Schedule Referral to Orthopaedic Surgery Outpatient Referral Routine Right hip pain SI joint arthritis (CMS/HCC) Expected: 09/04/2024 (Approximate), Expires: 09/04/2025 documented as of this encounter Visit Diagnoses Diagnosis Right hip pain- Primary Pain in joint, pelvic region and thigh SI joint arthritis (CMS/HCC) documented in this encounter Care Teams Botany Laboratory Assistant Relationship Specialty Start Date End Date Clare Mo MD [address] [place] [address] PCP - General Internal Medicine 03/17/17 documented as of this encounter
--- OUTSIDE RECORDS SUMMARY | 2025-09-11 13:17 | XMS_ITS | Encounter Summary ---
Author Organization [employer] Address 75 [facility] [address] [address] Care Team Providers Care Continuity Clerk Name Role Phone Clare Mo MD Primary Care Provider +1- [phone] Reason for Visit * Reason Onset Date Comments Med Refill 04/14/2024 Encounter Details Date Type Department Care Team ([facility] st Contact Info) Description 04/14/2024 Telephone [facility] MEDICINE [address] [place] [address] Clare Mo MD 505 [place] [address] Med Refill Social History Tobacco Use Types [...] 1 MG tablet To be sent to: [facility] - [place], [place] - [address] [place] [address] documented in this encounter Plan of Treatment Upcoming Encounters Date Type Department Care Team (Late st Contact Info) Description 10/08/2025 10:30 AM EST Telemedicine [facility] MED & PEDS 505 [place] [address] Evelina Pimentel RN 505 [place] [address] documented as of this encounter Visit Diagnoses Not on filedocumented in this encounter Care Teams Continuity Clerk Relationship Specialty Start Date End Date Clare Mo MD 505 [place] [address] PCP - General Internal Medicine 03/17/17 documented as of this encounter
--- OUTSIDE RECORDS SUMMARY | 2025-09-11 13:17 | XMS_ITS | Encounter Summary ---
Author Organization [employer] Address [address] [place] [address] Care Team Providers Care Aligner Typewriter Name Role Phone Clare Mo MD Primary Care Provider +1- [phone] Encounter Details Date Type Department [facility] ([facility] Description 04/20/2023 Orders Only [facility] MED & PEDS 505 [place] [address] Clare Mo MD 505 [place] [address] Pain in both hands (Primary Dx); Chronic [...] Upcoming Encounters Date Type Department Care Team ([facility] Contact Info) Description 10/08/2025 10:30 AM EST Telemedicine [facility] MED & PEDS 505 [place] [address] Evelina Pimentel RN 505 [place], [place] [phone] documented as of this encounter Visit Diagnoses Diagnosis Pain in both hands- Primary Chronic low back pain, unspecified back pain laterality, unspecified whether sciatica present documented in this encounter Care Teams Aligner Typewriter Relationship Specialty Start Date End Date Clare Mo MD [address] [place] [address] PCP - General Internal Medicine 03/17/17 documented as of this encounter
--- OUTSIDE RECORDS SUMMARY | 2025-09-11 13:17 | XMS_ITS | Encounter Summary ---
Author Organization [email or web address] Address 75 [facility] 7 [place] [address] Care Team Providers Care Box Loader Name Role Phone Clare Mo MD Primary Care Provider +1- [phone] Encounter Details Date Type Department Care Team ([facility] Contact Info) Description 09/29/2024 Orders Only [facility] MED & PEDS 505 [place], [place] [phone] Clare Mo MD 505 [place] [address] Social History Tobacco Use Types Packs/Day Years [...] [facility] MED [facility] PED[facility] 505 [place] [address] Evelina Pimentel RN 505 [place] [address] documented as of this encounter Visit Diagnoses Not on filedocumented in this encounter Care Teams Box Loader Relationship Specialty Start Date End Date Clare Mo MD 505 [place] [address] PCP - General Internal Medicine 03/17/17 documented as of this encounter
--- OUTSIDE RECORDS SUMMARY | 2025-09-11 13:17 | XMS_ITS | Encounter Summary ---
Author Organization [employer] Address 75 [place] [address] Care Team Providers Care Clinical Studies Specialist Name Role Phone Clare Mo MD Primary Care Provider +1- [phone] Reason for Visit * Reason Onset Date Comments Med Refill 04/02/2023 Medication Question 04/02/2023 Encounter Details Date Type Department Care Team ([facility] Contact Info) Description 04/02/2023 Telephone [facility] CH[facility] MED & PEDS 505 [place] [address] Clare Mo MD 505 [place], [place] [phone] Med Refill; Medication Question Social History Tobacco [...] [facility] MED & PEDS [address] [place] [address] Evelina Pimentel RN 505 [place] [address] documented as of this encounter Visit Diagnoses Not on filedocumented in this encounter Care Teams Clinical Studies Specialist Relationship Specialty Start Date End Date Clare Mo MD 505 [place] [address] PCP - General Internal Medicine 03/17/17 documented as of this encounter
--- OUTSIDE RECORDS SUMMARY | 2025-09-11 13:17 | XMS_ITS | Encounter Summary ---
Author Organization [employer] Address [address] [place] [address] Care Team Providers Care Dessert Cup Machine Feeder Name Role Phone Clare Mo MD Primary Care Provider +1- [phone] Reason for Referral * Consultation (Routine) - Closed Specialty Diagnoses / Procedures Referred By Contac t Referred To Contact Nutrition Diagnoses Obesity, unspecified classification, unspecified obesity type, unspecified whether serious comorbidity present Clare Mo MD 505 [place] [address] Phone: tel: fax: Referral ID Status Reason Start Date Expiration Date V isits Requested Visits Authorized [id number] Closed Consult and Treat 05/19/2024 05/19/2025 1 1 Encounter Details Date Type Department Care Team ([facility] st Contact Info) Description 05/19/2024 Orders Only [facility] CH[facility] MED & PEDS 505 [place] [address] Clare Mo MD 505 [place] [address] Obesity, unspecified classification, unspecified obesity type, unspecified [...] Description 10/08/2025 10:30 AM EST Telemedicine [facility] MED & PEDS 505 [place] [address] Evelina Pimentel, WILBER 505 [place] [address] Scheduled Referrals Name Type Priority Associated Diagnoses Orde r Schedule Referral to Nutrition Therapy Outpatient Referral Routine Obesity, unspecified classification, unspecified obesity type, unspecified whether serious comorbidity present Expected: 05/19/2024 (Approximate), Expires: 05/19/2025 documented as of this encounter Visit Diagnoses Diagnosis Obesity, unspecified classification, unspecified obesity type, unspecified whether serious comorbidity present- Primary documented in this encounter Care Teams Dessert Cup Machine Feeder Relationship Specialty Start Date End Date Clare Mo MD 505 [place] [address] PCP - General Internal Medicine 03/17/17 documented as of this encounter
--- OUTSIDE RECORDS SUMMARY | 2025-09-11 13:17 | XMS_ITS | Encounter Summary ---
Author Organization [employer] Address 75 [facility] 7 [place] [address] Care Team Providers Care Elementary Educator Name Role Phone Clare Mo MD Primary Care Provider +1- [phone] Reason for Visit * Reason Comments Med Refill Encounter Details Date Type Department Care Team ([facility] st Contact Info) Description 01/25/2024 Refill [facility] MEDICINE 230 [place] [address] Clare Mo MD 505 [place], [place] [phone] Chronic low back pain with sciatica, sciatica [...] [facility] 505 [place] [address] Evelina Pimentel RN 505 [place] [address] documented as of this encounter Visit Diagnoses Diagnosis Chronic low back pain with sciatica, sciatica laterality unspecified, unspecified back pain laterality Anxiety Anxiety state, unspecified documented in this encounter Care Teams Elementary Educator Relationship Specialty Start Date End Date Clare Mo MD 505 [place] [address] PCP - General Internal Medicine 03/17/17 documented as of this encounter
--- OUTSIDE RECORDS SUMMARY | 2025-09-11 13:18 | XMS_ITS | Encounter Summary ---
Author Organization [employer] Address 75 [facility] [address], [place] [address] Care Team Providers Care Hand Hardener Name Role Phone Clare Mo MD Primary Care Provider +1- [phone] Reason for Visit * Reason Onset Date Comments Med Refill 11/10/2024 Encounter Details Date Type Department Care Team ([facility] st Contact Info) Description 11/10/[address] [facility] MEDICINE [address] [place] [address] Clare Mo MD 505 [place], [place] [phone] Med Refill Social History Tobacco Use Types [...] 1 MG tablet To be sent to: [facility] - [place], [place] - [address] [place] [address] ' ' documented in this encounter Plan of Treatment Upcoming Encounters Date Type Department Care Team (Late st Contact Info) Description 10/08/2025 10:[address] [facility] MED & PEDS 505 [place] [address] Evelina Pimentel, WILBER 505 [place] [address] documented as of this encounter Visit Diagnoses Not on filedocumented in this encounter Care Teams Hand Hardener Relationship Specialty Start Date End Date Clare Mo MD 505 [place] [address] PCP - General Internal Medicine 03/17/17 documented as of this encounter
--- OUTSIDE RECORDS SUMMARY | 2025-09-11 13:18 | XMS_ITS | Encounter Summary ---
Author Organization [employer] Address [address] [address] Care Team Providers Care Representative Name Role Phone Clare Mo MD Primary Care Provider +1- [phone] Reason for Visit * Reason Onset Date Comments chart prep 09/10/2025 Encounter Details Date Type Department Care Team ([facility] Contact Info) Description 09/10/2025 Telephone [facility] MED & PEDS 505 [place] [address] Clare Mo MD 505 [place] [address] chart prep Social History Tobacco Use Types Packs/Day Years [...] encounter Miscellaneous Notes * Telephone Encounter - Regine Noyola [place] - 09/10/2025 9:38 AM EST Chart Prep Labs: not applicable Images: done Referrals: appointment pending Vaccines due: Covid, Flu, PCV20, and Hep B Screenings: not applicable Overdue care gaps: SBIRT and SDOH documented in this encounter Plan of Treatment Upcoming Encounters Date Type Department Care Team (Late st Contact Info) Description 10/08/2025 10:30 AM EST Telemedicine [facility] MED [facility]EDS 505 [place] [address] Evelina Pimentel, WILBER 505 [place] [address] documented as of this encounter Visit Diagnoses Not on filedocumented in this encounter Care Teams Representative Relationship Specialty Start Date End Date Clare Mo MD 505 [place] [address] PCP - General Internal Medicine 03/17/17 documented as of this encounter
--- OUTSIDE RECORDS SUMMARY | 2025-09-11 13:18 | XMS_ITS | Encounter Summary ---
Author Organization [email or web address] Address 75 [facility] 7t [place] [address] Care Team Providers Care Senior Net Programmer Name Role Phone Clare Mo MD Primary Care Provider +1- [phone] Encounter Details Date Type Department Care Team ([facility] Contact Info) Description 08/31/2025 Results Follow-Up [facility] CH[facility] MED & PEDS [address] [place], [place] [phone] Georgia Alicea RN XR Lumbar Spine Complete 4+ Views Social History Tobacco Use Types Packs/Day Years [...] Info) Description 10/08/2025 10:30 AM EST Telemedicine [facility] MED & PEDS 505 [place] [address] Evelina Pimentel, WILBER 505 [place] [address] documented as of this encounter Visit Diagnoses Not on filedocumented in this encounter Care Teams Senior Net Programmer Relationship Specialty Start Date End Date Clare Mo MD 505 [place] [address] PCP - General Internal Medicine 03/17/17 documented as of this encounter
--- OUTSIDE RECORDS SUMMARY | 2025-09-11 13:18 | XMS_ITS | Encounter Summary ---
Author Organization [employer] Address 75 [facility] 7t [place] [address] Care Team Providers Care Accountant Supervisor Name Role Phone Clare Mo MD Primary Care Provider +1- [phone] Encounter Details Date Type Department Care Team ([facility] Contact Info) Description 02/27/2025 Orders Only [facility] CH[facility] MED & PEDS [address] [place], [place] [phone] Provider, MD Radhika Social History Tobacco Use [...] Upcoming Encounters Date Type Department Care Team ([facility] st Contact Info) Description 10/08/2025 10:30 AM EST Telemedicine [facility] MED & PEDS 505 [place] [address] Evelina Pimentel RN 505 [place] [address] documented as of this encounter Procedures Procedure [...] on filedocumented in this encounter Care Teams Accountant Supervisor Relationship Specialty Start Date End Date Clare Mo MD 505 [place] [address] PCP - General Internal Medicine 03/17/17 documented as of this encounter
--- OUTSIDE RECORDS SUMMARY | 2025-09-11 13:18 | XMS_ITS | Encounter Summary ---
Author Organization [employer] Address 75 [facility] 7 [place] [address] Care Team Providers Care Eligibility And Occupancy Interviewer Name Role Phone Clare Mo MD Primary Care Provider +1- [phone] Reason for Visit * Reason Comments Med Refill Encounter Details Date Type Department Care Team ([facility] st Contact Info) Description 02/06/2025 Refill [facility] MEDICINE 230 [place] [address] Clare Mo MD 505 [place], [place] [phone] Foraminal stenosis of cervical region Social History [...] Description 10/08/2025 10:30 AM EST Telemedicine [facility] CHC MED & PEDS 505 [place] [address] Evelina Pimentel, WILBER 505 [place] [address] documented as of this encounter Visit Diagnoses Diagnosis Foraminal stenosis of cervical region documented in this encounter Care Teams Eligibility And Occupancy Interviewer Relationship Specialty Start Date End Date Clare Mo MD 505 [place] [address] PCP - General Internal Medicine 03/17/17 documented as of this encounter
--- OUTSIDE RECORDS SUMMARY | 2025-09-11 13:18 | XMS_ITS | Encounter Summary ---
Author Organization [employer] Address 75 [facility] [address] [address] Care Team Providers Care Lugger Name Role Phone Clare Mo MD Primary Care Provider +1- [phone] Reason for Visit * Reason Onset Date Comments Nurse Triage 01/03/2025 Encounter Details Date Type Department Care Team ([facility] Contact Info) Description 01/03/2025 Telephone [facility] MEDICINE 230 [place] [address] Clare Mo MD 505 [place], [place] [phone] Nurse Triage Social History Tobacco Use Types [...] Info) Description 10/08/2025 10:30 AM EST Telemedicine [facility] CHC MED & PEDS 505 [place] [address] Evelina Pimentel, WILBER 505 [place] [address] documented as of this encounter Visit Diagnoses Not on filedocumented in this encounter Care Teams Lugger Relationship Specialty Start Date End Date Clare Mo MD 505 [place] [address] PCP - General Internal Medicine 03/17/17 documented as of this encounter
--- OUTSIDE RECORDS SUMMARY | 2025-09-11 13:18 | XMS_ITS | Encounter Summary ---
Author Organization [employer] Address 75 [facility] [address], [place] [address] Care Team Providers Care Hydrodynamics Teacher Name Role Phone Clare Mo MD Primary Care Provider +1- [phone] Reason for Visit * Reason Onset Date Comments Med Refill 11/28/2024 Encounter Details Date Type Department Care Team ([facility] st Contact Info) Description 11/28/2024 Telephone [facility] MEDICINE 230 [place] [address] Clare Mo MD 505 [place], [place] [phone] Med Refill Social History Tobacco Use Types [...] 10-325 MG tablet To be sent to: [facility] - [place], [place] - [address] [place] [address] documented in this encounter Plan of Treatment Upcoming Encounters Date Type Department Care Team (Late st Contact Info) Description 10/08/2025 10:30 AM EST Telemedicine [facility] CHC MED & PEDS 505 [place] [address] Evelina Pimentel, WILBER 505 [place] [address] documented as of this encounter Visit Diagnoses Not on filedocumented in this encounter Care Teams Hydrodynamics Teacher Relationship Specialty Start Date End Date Clare Mo MD 505 [place] [address] PCP - General Internal Medicine 03/17/17 documented as of this encounter
--- OUTSIDE RECORDS SUMMARY | 2025-09-11 13:18 | XMS_ITS | Encounter Summary ---
Author Organization [employer] Address 75 [facility] [address] [address] Care Team Providers Care Dance Hall Host/Hostess Name Role Phone Clare Mo MD Primary Care Provider +1- [phone] Reason for Visit * Reason Onset Date Comments Medication Question 01/31/2025 Encounter Details Date Type Department Care Team ([facility] Contact Info) Description 01/31/2025 Telephone [facility] MEDICINE 230 [place] [address] Clare Mo MD 505 [place], [place] [phone] Medication Question Social History Tobacco Use Types [...] can't take the medication every 8 hours. [phone] documented in this encounter Plan of Treatment Upcoming Encounters Date Type Department Care Team (Late st Contact Info) Description 10/08/2025 10:30 AM EST Telemedicine [facility] MED & PEDS 505 [place] [address] Evelina Pimentel RN 505 [place] [address] documented as of this encounter Visit Diagnoses Not on filedocumented in this encounter Care Teams Dance Hall Host/Hostess Relationship Specialty Start Date End Date Clare Mo MD 505 [place] [address] PCP - General Internal Medicine 03/17/17 documented as of this encounter
--- OUTSIDE RECORDS SUMMARY | 2025-09-11 13:18 | XMS_ITS | Encounter Summary ---
Author Organization [employer] Address 75 [facility] 7 [place] [address] Care Team Providers Care Ancient Art Curator Name Role Phone Clare Mo MD Primary Care Provider +1- [phone] Encounter Details Date Type Department Care Team ([facility] Contact Info) Description 01/24/2025 Orders Only [facility] CHC MED & PEDS [address] [place], [place] [phone] Clare Mo MD 505 [place] [address] Neck pain Social History Tobacco Use Types [...] [facility] 505 [place] [address] Evelina Pimentel RN 505 [place] [address] documented as of this encounter Visit Diagnoses Diagnosis Neck pain Cervicalgia documented in this encounter Care Teams Ancient Art Curator Relationship Specialty Start Date End Date Clare Mo MD [address] [place] [address] PCP - General Internal Medicine 03/17/17 documented as of this encounter
--- OUTSIDE RECORDS SUMMARY | 2025-09-11 13:18 | XMS_ITS | Encounter Summary ---
Author Organization [employer] Address 75 [facility] 7[facility] [address] Care Team Providers Care Bicycle Assembler Name Role Phone Clare Mo MD Primary Care Provider +1- [phone] Reason for Visit * Reason Onset Date Comments Med Refill 09/03/2025 Encounter Details Date Type Department Care Team ([facility] Contact Info) Description 09/03/2025 Refill [facility] CHC MED & PEDS [address] [place] [address] Clare Mo MD 505 [place] [address] Chronic left-sided low back pain, unspecified whether sciatica present Social History Tobacco [...] Upcoming Encounters Date Type Department Care Team ([facility] [address] Contact Info) Description 10/08/2025 10:30 AM EST Telemedicine [facility] MED & PEDS [address] [place] [address] Evelina Pimentel, WILBER 505 [place] [address] documented as of this encounter Visit Diagnoses Diagnosis Chronic left-sided low back pain, unspecified whether sciatica present documented in this encounter Care Teams Bicycle Assembler Relationship Specialty Start Date End Date Clare Mo MD 505 [place] [address] PCP - General Internal Medicine 03/17/17 documented as of this encounter
--- OUTSIDE RECORDS SUMMARY | 2025-09-11 13:18 | XMS_ITS | Encounter Summary ---
Author Organization [employer] Address 75 [facility] 7 [place] [address] Care Team Providers Care Wire Frame Maker Name Role Phone Clare Mo MD Primary Care Provider +1 [phone] Encounter Details Date Type Department Care Team ([facility] Contact Info) Description 02/24/2024 Orders Only [facility] [address] [place], [place] [address] Provider, MD Radhika Social History Tobacco Use [...] [facility] MED [facility] 505 [place] [address] Evelina Pimentel, RN 505 [place] [address] documented as of this encounter Procedures Procedure [...] filedocumented in this encounter Care Teams Wire Frame Maker Relationship Specialty Start Date End Date Clare Mo MD 505 [place] [address] PCP - General Internal Medicine 03/17/17 documented as of this encounter
--- OUTSIDE RECORDS SUMMARY | 2025-09-11 13:18 | XMS_ITS | Encounter Summary ---
Author Organization [employer] Address 75 [facility] 7 [place] [address] Care Team Providers Care Clothes Drier Repairer Name Role Phone Clare Mo MD Primary Care Provider +1- [phone] Encounter Details Date Type Department Care Team ([facility] Contact Info) Description 03/02/2025 Orders Only [facility] MED & PEDS 505 [place], [place] [phone] Clare Mo MD 505 [place], [place] [phone] Hypoproteinemia (CMS/HCC) (Primary Dx); Transaminitis Social History Tobacco Use Types Packs/Day Years Used Date Smoking Tobacco: Former Cigarettes Housing Stability Answer Date Recorded What is your housing situation today? I have rosemaryindy zuniag 06/02/[address] you li [...] 10/08/2025 10:30 AM EST Telemedicine [facility] MED & PEDS [address] [place] [address] Evelina Pimentel, RN 505 [place] [address] documented as of this encounter Procedures Procedure Name Priority Date/Time Associated Diagnosis Comments COMPREHENSIVE METABOLIC PANEL Routine 04/10/2025 11:39 AM EDT Hypoproteinemia (CMS/HCC) Transaminitis documented in this encounter Results * (ABNORMAL) Comprehensive Metabolic Panel (04/10/2025 11:39 AM EDT) Sodium 141 135 - 145 mmol/L [facility] Potassium 3.7 3.3 - 5.1 mmol/L [facility] Chloride 106 96 - 108 mmol/L [facility] Carbon Dioxide 26 22 - 29 mmol/L [facility] Anion Gap 13 12 - 20 [facility] Urea Nitrogen (BUN) 14 9 - 16 mg/dL [facility] Creatinine, Serum 0.96 0.5 - 1.4 mg/dL [facility] Estimated Glomerular Filt Rate >60 [facility] Comment:Chronic Kidney Disea se: Estimated GFR < 60 mL/min/[id number] Kidney Disease: Estimated GFR < 15 mL/min/1.73m2 Glucose 120(H) 60 - 115 mg/dL [facility] Calcium 9.4 8.4 - 10.2 mg/dL [facility] Bilirubin, Total 0.4 0.0 - 1.0 mg/dL [facility] Aspartate Amino Transferase 24 5 - 31 U/L [facility] Alanine Aminotransferase 28 0 - 31 U/L [facility] Total Protein 7.6 6.5 - 8.0 g/dL [facility] Albumin Level 4.7 3.5 - 5.0 g/dL [facility] Alkaline Phosphatase 69 39 - 117 U/L [facility] Blood Venous blood specimen / Unknown 04/10/2025 11:39 AM EDT 04/10/2025 2:04 PM EDT Clare Mo MD LAB BLOOD ORDERABLES Final Result [facility] [address] [place] [address] [phone] documented in this encounter Visit Diagnoses Diagnosis Hypoproteinemia (CMS/HCC)- Primary Other disorders of plasma protein metabolism Transaminitis Nonspecific elevation of levels of transaminase or lactic acid dehydrogenase (LDH) documented in this encounter Care Teams Clothes Drier Repairer Relationship Specialty Start Date End Date Clare Mo MD [address] [place] [address] PCP - General Internal Medicine 03/17/17 documented as of this encounter
--- OUTSIDE RECORDS SUMMARY | 2025-09-11 13:18 | XMS_ITS | Encounter Summary ---
Author Organization [employer] Address 75 [facility] 7 [place] [address] Care Team Providers Care Director Music Name Role Phone Clare Mo MD Primary Care Provider +1- [phone] Encounter Details Date Type Department Care Team ([facility] Contact Info) Description 07/19/2025 Orders Only [facility] CHC MED & PEDS [address] [place], [place] [phone] Clare Mo MD 505 [place], [place] [phone] Anxiety (Primary Dx) Social History Tobacco Use [...] Encounters Date Type Department Care Team ([facility] st Contact Info) Description 10/08/2025 10:30 AM EST Telemedicine [facility] MED & PEDS 505 [place] [address] Evelina Pimentel, WILBER 505 [place] [address] documented as of this encounter Visit Diagnoses Diagnosis Anxiety- Primary Anxiety state, unspecified documented in this encounter Care Teams Director Music Relationship Specialty Start Date End Date Clare Mo MD 505 [place] [address] PCP - General Internal Medicine 03/17/17 documented as of this encounter
--- OUTSIDE RECORDS SUMMARY | 2025-09-11 13:18 | XMS_ITS | Encounter Summary ---
Author Organization [employer] Address 75 [facility] [address] [place] [address] Care Team Providers Care Reel Slitter Name Role Phone Clare Mo MD Primary Care Provider +1- [phone] Reason for Visit * Reason Comments Med Refill Encounter Details Date Type Department Care Team ([facility] Contact Info) Description 03/21/2025 Refill [facility] CHC MED & PEDS 505 [place], [place] [phone] Clare Mo MD 505 [place] [address] Anxiety Social History Tobacco Use Types Packs/Day [...] ([facility] st Contact Info) Description 10/08/2025 10:30 AM EST Telemedicine [facility] CHC MED & PEDS 505 [place] [address] Evelina Pimentel, WILBER 505 [place] [address] documented as of this encounter Visit Diagnoses Diagnosis Anxiety Anxiety state, unspecified documented in this encounter Care Teams Reel Slitter Relationship Specialty Start Date End Date Clare Mo MD 505 [place] [address] PCP - General Internal Medicine 03/17/17 documented as of this encounter
--- OUTSIDE RECORDS SUMMARY | 2025-09-11 13:18 | XMS_ITS | Encounter Summary ---
Author Organization [employer] Address 75 [facility] 7 [place] [address] Care Team Providers Care Sheet Cutting Operator Name Role Phone Clare Mo MD Primary Care Provider +1- [phone] Encounter Details Date Type Department Care Team ([facility] Contact Info) Description 12/18/2024 Orders Only [facility] MED & PEDS 505 [place], [place] [phone] Clare Mo MD 505 [place] [address] Social History Tobacco Use Types Packs/Day Years [...] [facility] MED & PEDS 505 [place] [address] Evelina Pimentel RN 505 [place] [address] documented as of this encounter Visit Diagnoses Not on filedocumented in this encounter Care Teams Sheet Cutting Operator Relationship Specialty Start Date End Date Clare Mo MD 505 [place] [address] PCP - General Internal Medicine 03/17/17 documented as of this encounter
--- OUTSIDE RECORDS SUMMARY | 2025-09-11 13:18 | XMS_ITS | Encounter Summary ---
Author Organization [employer] Address 75 [facility] [address], [place] [address] Care Team Providers Care Qa Tester Name Role Phone Clare Mo MD Primary Care Provider +1- [phone] Reason for Visit * Reason Onset Date Comments Med Refill 03/03/2024 Encounter Details Date Type Department Care Team ([facility] st Contact Info) Description 03/03/2024 Telephone [facility] [address] [place] [address] Clare Mo MD 505 [place], [place] [phone] Med Refill Social History Tobacco Use Types [...] as they should both have refills at [facility]. * Telephone Encounter - Ayla Gongora - 03/03/2024 10:18 AM EDT TC from pt requesting medication refill. Medications needing refill : cyclobenzaprine (Flexeril) 10 MG tablet gabapentin (Neurontin) 800 MG tablet To be sent to: [facility] - [place], [place] - [address] [place] [address] documented in this encounter Plan of Treatment Upcoming Encounters Date Type Department Care Team (Late st Contact Info) Description 10/08/2025 10:30 AM EST Telemedicine [facility] MED & PEDS 505 [place] [address] Evelina Pimentel, WILBER 505 [place] [address] documented as of this encounter Visit Diagnoses Diagnosis Anxiety Anxiety state, unspecified Chronic low back pain with sciatica, sciatica laterality unspecified, unspecified back pain laterality documented in this encounter Care Teams Qa Tester Relationship Specialty Start Date End Date Clare Mo MD 505 [place] [address] PCP - General Internal Medicine 03/17/17 documented as of this encounter
--- OUTSIDE RECORDS SUMMARY | 2025-09-11 13:18 | XMS_ITS | Encounter Summary ---
Author Organization [employer] Address [address] [place] [address] Care Team Providers Care Parole Hearing Officer Name Role Phone Clare Mo MD Primary Care Provider +1- [phone] Reason for Referral * Consultation (Urgent) - Closed Specialty Diagnoses / Procedures Referred By Contac t Referred To Contact Neurosurgery Diagnoses Lumbar nerve root impingement Clare Mo MD 505 [place] [address] Phone: tel: fax: Keli Suggs [address] [place] [address], [address] [place], [place] Phone: tel: fax: Referral ID Status Reason Start Date Expiration Date V isits Requested Visits Authorized [id number] Closed Specialty Services Required 01/11/2024 01/10/2025 1 1 Encounter Details Date Type Department Care Team (Late st Contact Info) Description 01/11/2024 Orders Only [facility] CHC MED & PEDS [address] [place], [place] [phone] Clare Mo MD 505 [place] [address] Lumbar nerve root impingement (Primary Dx); Chronic [...] 10/08/2025 10:30 AM EST Telemedicine [facility] CHC MED & PEDS 505 [place] [address] Evelina Pimentel, WILBER 505 [place] [address] Scheduled Referrals Name Type Priority Associated Diagnoses [...] unspecified documented in this encounter Care Teams Parole Hearing Officer Relationship Specialty Start Date End Date Clare Mo MD [address] [place] [address] PCP - General Internal Medicine 03/17/17 documented as of this encounter
--- OUTSIDE RECORDS SUMMARY | 2025-09-11 13:18 | XMS_ITS | Encounter Summary ---
Author Organization [employer] Address [address] [place] [address] Care Team Providers Care Digital Commentator Name Role Phone Clare Mo MD Primary Care Provider +1 [phone] Reason for Referral * Imaging (Routine) - Closed Specialty Diagnoses / Procedures Referred By Contac t Referred To Contact Radiology Diagnoses Low back pain at multiple sites Procedures MR Lumbar Spine w/o Contrast Clare Mo MD 505 [place], [place] Phone: tel: fax: [facility] [address] [place] [address] Phone: tel: fax: Referral ID Status Reason Start Date Expiration Date Visits Re quested Visits Authorized [id number] Closed 01/10/2025 01/10/2026 1 1 * Imaging (Urgent) - Closed Specialty Diagnoses / Procedures Referred By Contac t Referred To Contact Radiology Diagnoses Foraminal stenosis of cervical region Procedures MR Cervical Spine w/o Contrast Clare Mo MD [address] [place] [address] Phone: tel: fax: [facility] [address] [place] [address] Phone: tel: fax: Referral ID Status Reason Start Date Expiration Date Visits Re quested Visits Authorized [id number] Closed 01/03/2025 01/03/2026 1 1 Encounter Details Date Type Department Care Team (Late st Contact Info) Description 01/03/2025 Orders Only [facility] CHC MED & PEDS 505 [place] [address] Clare Mo MD 505 [place] [address] Foraminal stenosis of cervical region (Primary Dx); [...] Description 10/08/2025 10:30 AM EST Telemedicine [facility] CHC MED & PEDS 505 [place] [address] Evelina Pimentel, RN 505 [place] [address] documented as of this encounter Procedures Procedure [...] sites documented in this encounter Care Teams Digital Commentator Relationship Specialty Start Date End Date Clare Mo MD 505 [place] [address] PCP - General Internal Medicine 03/17/17 documented as of this encounter
--- OUTSIDE RECORDS SUMMARY | 2025-09-11 13:18 | XMS_ITS | Encounter Summary ---
Author Organization [employer] Address 75 [facility] [address] [address] Care Team Providers Care Information Systems Security Analyst Name Role Phone Clare Mo MD Primary Care Provider +1- [phone] Reason for Visit * Reason Onset Date Comments Med Refill 01/03/2025 Encounter Details Date Type Department Care Team ([facility] st Contact Info) Description 01/03/2025 Telephone [facility] [address] [place] [address] Clare Mo MD 505 [place], [place] [phone] Med Refill Social History Tobacco Use Types [...] 1 MG tablet To be sent to: [facility] - [place], [place] - [address] [place] [address] documented in this encounter Plan of Treatment Upcoming Encounters Date Type Department Care Team (Late st Contact Info) Description 10/08/2025 10:30 AM EST Telemedicine [facility] MED & PEDS 505 [place] [address] Evelina Pimentel RN 505 [place] [address] documented as of this encounter Visit Diagnoses Not on filedocumented in this encounter Care Teams Information Systems Security Analyst Relationship Specialty Start Date End Date Clare Mo MD 505 [place] [address] PCP - General Internal Medicine 03/17/17 documented as of this encounter
--- OUTSIDE RECORDS SUMMARY | 2025-09-11 13:18 | XMS_ITS | Encounter Summary ---
Author Organization [employer] Address 75 [facility] [address] [address] Care Team Providers Care Chemical Preparer Name Role Phone Clare Mo MD Primary Care Provider +1- [phone] Reason for Visit * Reason Onset Date Comments Med Refill 02/06/2025 Encounter Details Date Type Department Care Team ([facility] st Contact Info) Description 02/06/2025 Telephone [facility] 230 [place] [address] Clare Mo MD 505 [place], [place] [phone] Med Refill Social History Tobacco Use Types [...] Description 10/08/2025 10:30 AM EST Telemedicine [facility] MED & PEDS 505 [place] [address] Evelina Pimentel RN 505 [place] [address] documented as of this encounter Visit Diagnoses Not on filedocumented in this encounter Care Teams Chemical Preparer Relationship Specialty Start Date End Date Clare Mo MD 505 [place] [address] PCP - General Internal Medicine 03/17/17 documented as of this encounter
--- OUTSIDE RECORDS SUMMARY | 2025-09-11 13:18 | XMS_ITS | Encounter Summary ---
Author Organization [employer] Address 75 [facility] 7 [place] [address] Care Team Providers Care Stranding Machine Operator Name Role Phone Clare Mo MD Primary Care Provider +1- [phone] Reason for Visit * Reason Onset Date Comments Med Refill 01/09/2025 Encounter Details Date Type Department Care Team ([facility] st Contact Info) Description 01/09/2025 Refill [facility] [address] [place] [address] Clare Mo MD 505 [place] [address] Chronic low back pain with sciatica, sciatica [...] [facility] st Contact Info) Description 10/08/2025 10:30 AM EST Telemedicine [facility] CH[facility] MED & PEDS 505 [place] [address] Evelina Pimentel, WILBER 505 [place] [address] documented as of this encounter Visit Diagnoses Diagnosis Chronic low back pain with sciatica, sciatica laterality unspecified, unspecified back pain laterality documented in this encounter Care Teams Stranding Machine Operator Relationship Specialty Start Date End Date Clare Mo MD 505 [place] [address] PCP - General Internal Medicine 03/17/17 documented as of this encounter
--- OUTSIDE RECORDS SUMMARY | 2025-09-11 13:18 | XMS_ITS | Encounter Summary ---
Author Organization [employer] Address 75 [facility] [address] [address] Care Team Providers Care Steel Checker Name Role Phone Clare Mo MD Primary Care Provider +1- [phone] Reason for Visit * Reason Onset Date Comments error 03/21/2025 Encounter Details Date Type Department Care Team ([facility] Contact Info) Description 03/21/2025 Telephone [facility] 230 [place] [address] Clare Mo MD 505 [place], [place] [phone] error Social History Tobacco Use Types Packs/Day [...] Upcoming Encounters Date Type Department Care Team ([facility] st Contact Info) Description 10/08/2025 10:30 AM EST Telemedicine [facility] CHC MED & PEDS 505 [place] [address] Evelina Pimentel, WILBER 505 [place] [address] documented as of this encounter Visit Diagnoses Not on filedocumented in this encounter Care Teams Steel Checker Relationship Specialty Start Date End Date Clare Mo MD 505 [place] [address] PCP - General Internal Medicine 03/17/17 documented as of this encounter
--- OUTSIDE RECORDS SUMMARY | 2025-09-11 13:18 | XMS_ITS | Encounter Summary ---
Author Organization [employer] Address 75 [facility] 7 [place] [address] Care Team Providers Care Softlines Supervisor Name Role Phone Clare Mo MD Primary Care Provider +1- [phone] Encounter Details Date Type Department Care Team ([facility] Contact Info) Description 02/06/2025 Orders Only [facility] 230 [place], [place] [phone] Provider, MD Radhika Social History Tobacco Use [...] Description 10/08/2025 10:30 AM EST Telemedicine [facility] MED & PEDS 505 [place] [address] Evelina Pimentel, WILBER 505 [place] [address] documented as of this encounter Procedures Procedure [...] on filedocumented in this encounter Care Teams Softlines Supervisor Relationship Specialty Start Date End Date Clare Mo MD 505 [place] [address] PCP - General Internal Medicine 03/17/17 documented as of this encounter
--- OUTSIDE RECORDS SUMMARY | 2025-09-11 13:18 | XMS_ITS | Encounter Summary ---
Author Organization [employer] Address [address] [address] Care Team Providers Care Clin Application Specialist Name Role Phone Clare Mo MD Primary Care Provider +1- [phone] Reason for Visit * Reason Onset Date Comments Med Refill 03/19/2023 Encounter Details Date Type Department Care Team ([facility] Contact Info) Description 03/19/2023 Telephone [facility] CHC MED & PEDS 505 [place] [address] Clare Mo MD 505 [place] [address] Med Refill Social History Tobacco Use Types [...] [facility] st Contact Info) Description 10/08/2025 10:30 AM EST Telemedicine [facility] MED & PEDS 505 [place] [address] Evelina Pimentel, RN 505 [place] [address] documented as of this encounter Visit Diagnoses Not on filedocumented in this encounter Care Teams Clin Application Specialist Relationship Specialty Start Date End Date Clare Mo MD 505 [place] [address] PCP - General Internal Medicine 03/17/17 documented as of this encounter
--- OUTSIDE RECORDS SUMMARY | 2025-09-11 13:18 | XMS_ITS | Encounter Summary ---
Author Organization [employer] Address [address] [place] [address] Care Team Providers Care Fraud Investigator Name Role Phone Clare Mo MD Primary Care Provider +1- [phone] Reason for Visit * Reason Onset Date Comments Medication Question 03/19/2023 Encounter Details Date Type Department Care Team ([facility] Contact Info) Description 03/19/2023 Telephone [facility] CHC MED & PEDS 505 [place] [address] Clare Mo MD 505 [place] [address] Medication Question Social History Tobacco Use Types [...] increase, pt requested to speak to nurse ward supervisor, Activities Coordinator advice to return call after 9:30 where she can be connected to a clinical marketing manager or nurse, pt agreed to plan. * Telephone Encounter - Dania Medeiros - 03/19/2023 12:16 PM EDT Tc from pt wants to know if PCP can up the dosage for oxyCODONE-acetaminophen (Percocet) 7.5-325 MGtablet documented in this encounter Plan of Treatment Upcoming Encounters Date Type Department Care Team (Late st Contact Info) Description 10/08/2025 10:30 AM EST Telemedicine [facility] MED & PEDS 505 [place] [address] Evelina Pimentel, RN 505 [place] [address] documented as of this encounter Visit Diagnoses Not on filedocumented in this encounter Care Teams Fraud Investigator Relationship Specialty Start Date End Date Clare Mo MD 505 [place] [address] PCP - General Internal Medicine 03/17/17 documented as of this encounter
--- OUTSIDE RECORDS SUMMARY | 2025-09-11 13:18 | XMS_ITS | Clinical Summary ---
Author Organization [facility] Address [address] [place] [address] Phone Care Team Providers Care Head Of Store Operations Name Role Phone Clare Mo MD Primary Care Provider +1 -[phone] Allergies No known active allergies Medications ALPRAZolam [...] day. TEST BLOOD SUGAR 5 Active FreeStyle Hobe [employer] Lite monitoring kit by extracorporeal route 1 [...] had x-rays of the hip performed at [facility] on 08/01/24. They revealed calcific tendinitis [...] arms overhead, she had to ask the dental lab technician to help her move her arms [...] residual retropharyngeal swelling on her x-rays from [place]. I am putting her on low-dose Decadron [...] dynamic views performed when she went to [facility]. Assessment & Plan (02/14/2025 9:41 PM EDT): [...] Dr. Suggs when she is back from [place] (March 23). I asked her to call [...] she do this before her trip to [place] in March as she will be well [...] spine from January of this year at [facility] veal degenerative changes most significant [...] told her she likely has fibromyalgia. 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 [...] lumbar cortisone injections back in 2020 at [facility]. She has been walking with a walker. Ms. Macedo describes left low back, buttock, hip and foot pain. She is having to walk with a walker, feels her balance is poor. We can check updated lumbar spine MRI with and without contrast to rule out recurrent disc herniation/nerve root compression. She would also like to be referred back to [facility] to see if they would offer left SI joint injection, she has tenderness over the SI joint, pain in the SI joint region with external hip rotation. She will go for the hip x-rays (already ordered by PCP) this coming week. We will follow-up with her after imaging is complete. Encounters Date Type Department Care Team Description 08/02/2025 Telephone Neurosurgery [place] - [address] [place] [address] [place], [place] from Last 3 Months Immunizations Immunization [...] this topic Medical Devices Implanted Type Area Business Consultant Device Identifier Shelf Expiration Date Model / Serial / Lot L-Asr Tay Canc [id number] Fd Fee - [id number] - [id number] Implanted:Qty : 1 on 02/01/2025 by Keli Suggs MD at [facility] [employer] Bone N/A: Spine Cervical [employer] 01/27/2026 [id number] / [id number] / [id number] L-Asr Tay Canc [id number] Fd Fee - [id number] - [id number] Implanted:Qty : 1 on 02/01/2025 by Keli Suggs MD at [facility] [employer] Bone N/A: Spine Cervical [employer] 04/22/2026 [id number] / [id number] / [id number] Powder Surgifoam Absorb Gel - Sna - [id number] Implanted:Qty : 1 on 02/01/2025 by Keli Suggs MD at [facility] [employer] N/A: Spine Cervical [employer] 10/26/20261977 / NA / [id number] Plate Spin Cerv Ant Zevo 35mm - Sna - [id number] Implanted:Qty : 1 on 02/01/2025 by Keli Suggs MD at [facility] Spinal Hardware N/A: Spine Cervical [employer] SO[employer] [id number] / NA / NA Screw Cerv [address] 13x3.5mm - Sna - [id number] Implanted:Qty : 6 on 02/01/2025 by Keli Suggs MD at [facility] Spinal Hardware N/A: Spine Cervical [employer] SO[employer] [id number] / NA / NA Insurance MEDICARE [facility] MEDICARE Member Subscriber Plan / Payer (Ef fective 2025-Present) Name:ANDREA MACEDO Relation to Subscriber:Self Name:Andrea Macedo Payer ID:[id number] Group ID:[id number] Type:Not on file Address: [place] [address] [address] [phone] Advance Directives * Full Code - Default [...] currently active code status orders. Care Teams Head Of Store Operations Relationship Specialty Start Date End Date Clare Mo MD [address] [place] [address] PCP - General 01/11/24
--- OUTSIDE RECORDS SUMMARY | 2025-09-11 13:18 | XMS_ITS | Encounter Summary ---
Author Organization [employer] Address [address] [place] [address] Care Team Providers Care Tester Electronic Scale Name Role Phone Clare Mo MD Primary Care Provider +1- [phone] Reason for Visit * Reason Onset Date Comments Med Refill 12/18/2024 Medications 12/18/2024 Encounter Details Date Type Department Care Team ([facility] st Contact Info) Description 12/18/2024 Refill [facility] CHC MED & PEDS 505 [place] [address] Clare Mo MD 505 [place] [address] Chronic low back pain with sciatica, sciatica [...] unable to fill out a report in [place], [place] since the incident (TC 12/07/24) happened in [place]. Pt stated she can go to police station and lie that incident happened in [place] to make us happy . Pt states [...] Upcoming Encounters Date Type Department Care Team ([facility] st Contact Info) Description 10/08/2025 10:30 AM EST Telemedicine [facility] CHC MED & PEDS [address] [place] [address] Evelina Pimentel RN 505 [place] [address] documented as of this encounter Visit Diagnoses Diagnosis Chronic low back pain with sciatica, sciatica laterality unspecified, unspecified back pain laterality documented in this encounter Care Teams Tester Electronic Scale Relationship Specialty Start Date End Date Clare Mo MD 505 [place] [address] PCP - General Internal Medicine 03/17/17 documented as of this encounter
--- OUTSIDE RECORDS SUMMARY | 2025-09-11 13:18 | XMS_ITS | Encounter Summary ---
Author Organization [employer] Address 75 [facility] [place] [address] Care Team Providers Care Manager Sound Name Role Phone Clare Mo MD Primary Care Provider +1- [phone] Reason for Visit * Reason Comments Med Refill Encounter Details Date Type Department Care Team ([facility] st Contact Info) Description 09/03/2025 Refill [facility] MED & PEDS [address] [place], [place] [phone] Clare Mo MD 505 [place] [address] Chronic left-sided low back pain, unspecified whether sciatica present; Foraminal stenosis of cervical region Social History [...] Telephone Encounter - Clare Mo MD - 09/03/2025 7:15 PM EST This was a temporary supply to supplement her regular dose. Ms May Macedo should return to her previous regimen for now. There was not new findings on the xray of the LS. * Telephone Encounter - Evelina Pimentel RN - 09/03/2025 3:29 PM EST Pt requested Prescription refill today, 09/03 and request was queued to PCP this morning. Waiting for PCP signature. documented in this encounter Plan of Treatment Upcoming Encounters Date Type Department Care Team (Late st Contact Info) Description 10/08/2025 10:30 AM EST Telemedicine [facility] CHC MED & PEDS [address] [place] [address] Evelina Pimentel, WILBER 505 [place] [address] documented as of this encounter Visit Diagnoses Diagnosis Chronic left-sided low back pain, unspecified whether sciatica present Foraminal stenosis of cervical region documented in this encounter Care Teams Manager Sound Relationship Specialty Start Date End Date Clare Mo MD [address] [place] [address] PCP - General Internal Medicine 03/17/17 documented as of this encounter
--- OUTSIDE RECORDS SUMMARY | 2025-09-11 13:18 | XMS_ITS | Encounter Summary ---
Author Organization [employer] Address [address] [place] [address] Care Team Providers Care Animal Cruelty Investigator Name Role Phone Clare Mo MD Primary Care Provider +1- [phone] Reason for Visit * Reason Comments Med Refill Encounter Details Date Type Department Care Team ([facility] Contact Info) Description 03/09/2023 Refill [facility] CHC MED & PEDS [address] [place] [address] Clare Mo MD 505 [place] [address] Chronic low back pain with sciatica, sciatica [...] ([facility] Contact Info) Description 10/08/2025 10:30 AM EST Telemedicine [facility] CHC MED & PEDS [address] [place] [address] Evelina Pimentel, WILBER 505 [place] [address] documented as of this encounter Visit Diagnoses Diagnosis Chronic low back pain with sciatica, sciatica laterality unspecified, unspecified back pain laterality Anxiety Anxiety state, unspecified documented in this encounter Care Teams Animal Cruelty Investigator Relationship Specialty Start Date End Date Clare Mo MD [address] [place] [address] PCP - General Internal Medicine 03/17/17 documented as of this encounter
--- OUTSIDE RECORDS SUMMARY | 2025-09-11 13:18 | XMS_ITS | Encounter Summary ---
Author Organization [employer] Address [address] [address] Care Team Providers Care Blocker Polishing Name Role Phone Clare Mo MD Primary Care Provider +1- [phone] Reason for Visit * Reason Onset Date Comments Medication Question 03/15/2025 Encounter Details Date Type Department Care Team ([facility] Contact Info) Description 03/15/2025 Telephone [facility] CHC MED & PEDS [address] [place] [address] Clare Mo MD 505 [place] [address] Medication Question Social History Tobacco Use Types [...] not be back 04/28 Contact pt at [phone] documented in this encounter Plan of Treatment Upcoming Encounters Date Type Department Care Team (Late st Contact Info) Description 10/08/2025 10:30 AM EST Telemedicine [facility] MED & PEDS 505 [place] [address] Evelina Pimentel RN [address] [place] [address] documented as of this encounter Visit Diagnoses Diagnosis Foraminal stenosis of cervical region Chronic low back pain with sciatica, sciatica laterality unspecified, unspecified back pain laterality Anxiety Anxiety state, unspecified documented in this encounter Care Teams Blocker Polishing Relationship Specialty Start Date End Date Clare Mo MD [address] [place] [address] PCP - General Internal Medicine 03/17/17 documented as of this encounter
--- OUTSIDE RECORDS SUMMARY | 2025-09-11 13:18 | XMS_ITS | Encounter Summary ---
Author Organization [employer] Address 75 [facility] [address] [address] Care Team Providers Care Tip Printer Name Role Phone Clare Mo MD Primary Care Provider +1- [phone] Reason for Visit * Reason Onset Date Comments Med Refill 09/03/2025 Encounter Details Date Type Department Care Team ([facility] Contact Info) Description 09/03/2025 Telephone [facility] CHC MED & PEDS [address] [place] [address] Clare Mo MD 505 [place] [address] Med Refill Social History Tobacco Use Types [...] encounter Miscellaneous Notes * Telephone Encounter - Braulio Gutierrez - 09/03/2025 3:08 PM EST Tc from pt calling back regarding status. Pt is aware that message was sent prior to this. Any questions contact pt at [phone] * Telephone Encounter - Rosangela Moses - 09/03/2025 8:09 AM EST TC from pt requesting medication refill. Medications needing refill : oxyCODONE-acetaminophen (Percocet) 10-325 MG tablet To be sent to: [facility] documented in this encounter Plan of Treatment Upcoming Encounters Date Type Department Care Team (Late st Contact Info) Description 10/08/2025 10:30 AM EST Telemedicine [facility] MED & PEDS [address] [place] [address] Evelina Pimentel RN 505 [place] [address] documented as of this encounter Visit Diagnoses Not on filedocumented in this encounter Care Teams Tip Printer Relationship Specialty Start Date End Date Clare Mo MD 505 [place] [address] PCP - General Internal Medicine 03/17/17 documented as of this encounter
--- OUTSIDE RECORDS SUMMARY | 2025-09-11 13:18 | XMS_ITS | Encounter Summary ---
Author Organization [employer] Address 75 [facility] 7 [place] [address] Care Team Providers Care Trailer Steerer Name Role Phone Clare Mo MD Primary Care Provider +1- [phone] Encounter Details Date Type Department Care Team ([facility] Contact Info) Description 10/20/2024 Orders Only [facility] CHC MED & PEDS [address] [place], [place] [phone] Clare Mo MD 505 [place] [address] Chronic low back pain with sciatica, sciatica [...] the past 12 months, has t he [employer], gas, oil or water company threatened to [...] Upcoming Encounters Date Type Department Care Team ([facility] st Contact Info) Description 10/08/2025 10:30 AM EST Telemedicine [facility] MED & PEDS [address] [place] [address] Evelina Pimentel RN 505 [place] [address] documented as of this encounter Visit Diagnoses Diagnosis Chronic low back pain with sciatica, sciatica laterality unspecified, unspecified back pain laterality- Primary documented in this encounter Care Teams Trailer Steerer Relationship Specialty Start Date End Date Clare Mo MD 505 [place] [address] PCP - General Internal Medicine 03/17/17 documented as of this encounter
--- OUTSIDE RECORDS SUMMARY | 2025-09-11 13:18 | XMS_ITS | Encounter Summary ---
Author Organization [employer] Address 75 [facility] 7 [place] [address] Care Team Providers Care Chemistry Instructor Name Role Phone Clare Mo MD Primary Care Provider +1- [phone] Encounter Details Date Type Department Care Team ([facility] Contact Info) Description 05/02/2025 Orders Only [facility] MED & PEDS [address] [place], [place] [phone] Clare Mo MD [address] [place] [address] Cervical spondylosis (Primary Dx); Facet arthritis, degenerative, [...] Info) Description 10/08/2025 10:30 AM EST Telemedicine [facility] MED & PEDS 505 [place] [address] Evelina Pimentel, WILBER 505 [place] [address] documented as of this encounter Visit Diagnoses Diagnosis Cervical spondylosis- Primary Cervical spondylosis without myelopathy Facet arthritis, degenerative, lumbar spine Mild intermittent asthma without complication documented in this encounter Care Teams Chemistry Instructor Relationship Specialty Start Date End Date Clare Mo MD 505 [place] [address] PCP - General Internal Medicine 03/17/17 documented as of this encounter
--- OUTSIDE RECORDS SUMMARY | 2025-09-11 13:18 | XMS_ITS | Encounter Summary ---
Author Organization [employer] Address [address] [place] [address] Care Team Providers Care Resource Specialist Teacher Name Role Phone Clare Mo MD Primary Care Provider +1- [phone] Reason for Visit * Reason Onset Date Comments Med Refill 03/09/2023 Encounter Details Date Type Department Care Team ([facility] Contact Info) Description 03/09/2023 Telephone [facility] CHC MED & PEDS [address] [place] [address] Clare Mo MD 505 [place] [address] Med Refill Social History Tobacco Use Types [...] (Xanax) 1 MG tablet Please sent to [facility] - [place], [place] - [address] [facility] documented in this encounter Plan of Treatment Upcoming Encounters Date Type Department Care Team ([facility] st Contact Info) Description 10/08/2025 10:30 AM EST Telemedicine [facility] MED & PEDS [address] [place] [address] Evelina Pimentel, WILBER 505 [place] [address] documented as of this encounter Visit Diagnoses Not on filedocumented in this encounter Care Teams Resource Specialist Teacher Relationship Specialty Start Date End Date Clare Mo MD 505 [place] [address] PCP - General Internal Medicine 03/17/17 documented as of this encounter
--- OUTSIDE RECORDS SUMMARY | 2025-09-11 13:18 | XMS_ITS | Encounter Summary ---
Author Organization [employer] Address 75 [facility] [place] [address] Care Team Providers Care Cargo Station Worker Name Role Phone Clare Mo MD Primary Care Provider +1- [phone] Reason for Visit * Reason Onset Date Comments Call Back Request 01/06/2024 Encounter Details Date Type Department Care Team ([facility] Contact Info) Description 01/06/2024 Telephone [facility] CHC MED & PEDS [address] [place] [address] Clare Mo MD 505 [place] [address] Call Back Request Social History Tobacco Use [...] Upcoming Encounters Date Type Department Care Team ([facility] st Contact Info) Description 10/08/2025 10:30 AM EST Telemedicine [facility] CHC MED & PEDS [address] [place] [address] Evelina Pimentel, WILBER 505 [place] [address] documented as of this encounter Visit Diagnoses Not on filedocumented in this encounter Care Teams Cargo Station Worker Relationship Specialty Start Date End Date Clare Mo MD 505 [place] [address] PCP - General Internal Medicine 03/17/17 documented as of this encounter
--- OUTSIDE RECORDS SUMMARY | 2025-09-11 13:18 | XMS_ITS | Encounter Summary ---
Author Organization [employer] Address 75 [facility] [place] [address] Care Team Providers Care Supply Clerk Name Role Phone Clare Mo MD Primary Care Provider +1- [phone] Reason for Visit * Reason Onset Date Comments Med Refill 01/02/2025 Encounter Details Date Type Department Care Team ([facility] st Contact Info) Description 01/02/2025 Refill [facility] CHC MED & PEDS [address] [place] [address] Clare Mo MD [address] [place] [address] Foraminal stenosis of cervical region (Primary Dx); [...] [facility] MED & PEDS [address] [place] [address] Evelina Pimentel, WILBER 505 [place] [address] documented as of this encounter Visit Diagnoses Diagnosis Foraminal stenosis of cervical region- Primary Anxiety Anxiety state, unspecified documented in this encounter Care Teams Supply Clerk Relationship Specialty Start Date End Date Clare Mo MD 505 [place] [address] PCP - General Internal Medicine 03/17/17 documented as of this encounter
--- OUTSIDE RECORDS SUMMARY | 2025-09-11 13:18 | XMS_ITS | Encounter Summary ---
Author Organization [employer] Address 75 [facility] 7t [place] [address] Care Team Providers Care Bike Technician Name Role Phone Clare Mo MD Primary Care Provider +1 [phone] Encounter Details Date Type Department Care Team (Latest Contact Info) Description 09/11/2025 Travel Social History Tobacco Use Types Packs/Day [...] Description 10/08/2025 10:30 AM EST Telemedicine [facility] MED & PEDS 505 [place] [address] Evelina Pimentel RN 505 [place] [address] documented as of this encounter Visit Diagnoses Not on filedocumented in this encounter Care Teams Bike Technician Relationship Specialty Start Date End Date Clare Mo MD 505 [place] [address] PCP - General Internal Medicine 03/17/17 documented as of this encounter
--- OUTSIDE RECORDS SUMMARY | 2025-09-11 13:18 | XMS_ITS | Encounter Summary ---
Author Organization [employer] Address 75 [facility] 7 [place] [address] Care Team Providers Care Heading Saw Operator Name Role Phone Clare Mo MD Primary Care Provider +1- [phone] Reason for Visit * Reason Onset Date Comments Med Refill 02/05/2025 Encounter Details Date Type Department Care Team ([facility] Contact Info) Description 02/05/2025 Refill [facility] MEDICINE [address] [place] [address] Clare Mo MD [address] [place], [place] [phone] Foraminal stenosis of cervical region Social History [...] [facility] 505 [place] [address] Evelina Pimentel RN 505 [place] [address] documented as of this encounter Visit Diagnoses Diagnosis Foraminal stenosis of cervical region documented in this encounter Care Teams Heading Saw Operator Relationship Specialty Start Date End Date Clare Mo MD 505 [place] [address] PCP - General Internal Medicine 03/17/17 documented as of this encounter
--- OUTSIDE RECORDS SUMMARY | 2025-09-11 13:19 | XMS_ITS ---
Author Organization [employer] Address [address] [place] [address] [place] [address] Care Team Providers Care Engine Lathe Set Up Operator Name Role Phone Clare Mo MD Primary Care Provider [employer] Status:Enrolled (Active) Start date:01/06/2023 Enrollment date:01/06/2023 Case Team Name Relationship Phone Evelina Pimentel RN(Responsible Staff) Registered Nurse Continued Care and Services Coordination
--- OUTSIDE RECORDS SUMMARY | 2025-09-11 13:19 | XMS_ITS | Encounter Summary ---
Author Organization [employer] Address [address] [place] [address] Care Team Providers Care Grocery Team Member Name Role Phone Clare Mo MD Primary Care Provider +1- [phone] Encounter Details Date Type Department Care Team ([facility] Contact Info) Description 03/03/2023 Abstract [facility] MED & PEDS [address] [place] [address] Kelsea Talley [place] Social History Tobacco Use [...] Team ([facility] Contact Info) Description 10/08/2025 10:30 AM EST Telemedicine [facility] MED & PEDS 505 [place] [address] Evelina Pimentel, WILBER 505 [place] [address] documented as of this encounter Visit Diagnoses Not on filedocumented in this encounter Care Teams Grocery Team Member Relationship Specialty Start Date End Date Clare Mo MD [address] [place] [address] PCP - General Internal Medicine 03/17/17 documented as of this encounter
--- OUTSIDE RECORDS SUMMARY | 2025-09-11 13:19 | XMS_ITS | Encounter Summary ---
Author Organization [employer] Address 75 [facility] 7 [place] [address] Care Team Providers Care Puppet Developer Name Role Phone Clare Mo MD Primary Care Provider +1- [phone] Encounter Details Date Type Department Care Team ([facility] Contact Info) Description 11/29/2023 Orders Only [facility] CHC MED & PEDS [address] [place], [place] [phone] Clare Mo MD 505 [place] [address] Chronic low back pain with sciatica, sciatica [...] the past 12 months, has t he [employer], gas, oil or water company threatened to [...] Info) Description 10/08/2025 10:30 AM EST Telemedicine [facility] CHC MED & PEDS [address] [place] [address] Evelina Pimentel, WILBER 505 [place] [address] documented as of this encounter Visit Diagnoses Diagnosis Chronic low back pain with sciatica, sciatica laterality unspecified, unspecified back pain laterality- Primary documented in this encounter Care Teams Puppet Developer Relationship Specialty Start Date End Date Clare Mo MD 505 [place] [address] PCP - General Internal Medicine 03/17/17 documented as of this encounter
--- OUTSIDE RECORDS SUMMARY | 2025-09-11 13:19 | XMS_ITS | Encounter Summary ---
Author Organization [employer] Address 75 [facility] [address] [address] Care Team Providers Care Laminating Machine Offbearer Name Role Phone Clare Mo MD Primary Care Provider +1- [phone] Reason for Visit * Reason Onset Date Comments Nurse Triage 04/03/2025 Encounter Details Date Type Department Care Team ([facility] Contact Info) Description 04/03/2025 Telephone [facility] MEDICINE [address] [place] [address] Clare Mo MD 505 [place], [place] [phone] Nurse Triage Social History Tobacco Use Types [...] an FYI. Pt. Will be returning from [place] tomorrow. * Telephone Encounter - Crisotbal Rodriguez - 04/03/2025 10:50 AM EDT Symptoms: Fall, Sore Throat, Hip Pain - Not From Injury, Headache Outcome: Schedule an urgent appointment (within 1 hour) or talk to a nurse or provider soon Reason: Severe pain now Please contact pt at [phone]. documented in this encounter Plan of Treatment Upcoming Encounters Date Type Department Care Team (Late st Contact Info) Description 10/08/2025 10:30 AM EST Telemedicine [facility] MED & PEDS [address] [place] [address] Evelina Pimentel, RN 505 [place], [place] [phone] documented as of this encounter Visit Diagnoses Not on filedocumented in this encounter Care Teams Laminating Machine Offbearer Relationship Specialty Start Date End Date Clare Mo MD 505 [place] [address] PCP - General Internal Medicine 03/17/17 documented as of this encounter
--- OUTSIDE RECORDS SUMMARY | 2025-09-11 13:19 | XMS_ITS | Encounter Summary ---
Author Organization [employer] Address 75 [facility] 7t [place] [address] Care Team Providers Care Packaging Inspector Name Role Phone Clare Mo MD Primary Care Provider +1- [phone] Encounter Details Date Type Department Care Team ([facility] Contact Info) Description 06/20/2024 Orders Only [facility] [address] [place] [address] Clare Mo MD [address] [place] [address] Chronic low back pain with sciatica, sciatica [...] [facility] MED & PEDS 505 [place] [address] Evelina Pimentel, WILBER 505 [place] [address] documented as of this encounter Visit Diagnoses Diagnosis Chronic low back pain with sciatica, sciatica laterality unspecified, unspecified back pain laterality Anxiety Anxiety state, unspecified documented in this encounter Care Teams Packaging Inspector Relationship Specialty Start Date End Date Clare Mo MD [address] [place] [address] PCP - General Internal Medicine 03/17/17 documented as of this encounter
--- OUTSIDE RECORDS SUMMARY | 2025-09-11 13:19 | XMS_ITS | Encounter Summary ---
Author Organization [employer] Address [address] [place] [address] Care Team Providers Care Senior Software Quality Analyst Name Role Phone Clare Mo MD Primary Care Provider +1- [phone] Reason for Visit * Reason Comments Med Refill Encounter Details Date Type Department Care Team ([facility] Contact Info) Description 02/11/2023 Refill [facility] CHC MED & PEDS [address] [place] [address] Clare Mo MD 505 [place] [address] Chronic low back pain with sciatica, sciatica [...] Upcoming Encounters Date Type Department Care Team ([facility] Contact Info) Description 10/08/2025 10:30 AM EST Telemedicine [facility] CHC MED & PEDS 505 [place] [address] Evelina Pimentel WILBER 505 [place] [address] documented as of this encounter Visit Diagnoses Diagnosis Chronic low back pain with sciatica, sciatica laterality unspecified, unspecified back pain laterality documented in this encounter Care Teams Senior Software Quality Analyst Relationship Specialty Start Date End Date Clare Mo MD 505 [place] [address] PCP - General Internal Medicine 03/17/17 documented as of this encounter
--- OUTSIDE RECORDS SUMMARY | 2025-09-11 13:19 | XMS_ITS | Encounter Summary ---
Author Organization [employer] Address 75 [facility] 7[place] [address] Care Team Providers Care Russian Teacher Name Role Phone Clare Mo MD Primary Care Provider +1- [phone] Reason for Visit * Reason Onset Date Comments Med Refill 05/29/2024 Encounter Details Date Type Department Care Team ([facility] st Contact Info) Description 05/29/2024 Telephone [facility] MEDICINE [address] [place] [address] Clare Mo MD 505 [place], [place] [phone] Med Refill Social History Tobacco Use Types [...] 1 MG tablet To be sent to: [facility] - [place], [place] - [address] [place] [address] documented in this encounter Plan of Treatment Upcoming Encounters Date Type Department Care Team (Late st Contact Info) Description 10/08/2025 10:30 AM EST Telemedicine [facility] CHC MED & PEDS 505 [place] [address] Evelina Pimentel, WILBER 505 [place] [address] documented as of this encounter Visit Diagnoses Not on filedocumented in this encounter Care Teams Russian Teacher Relationship Specialty Start Date End Date Clare Mo MD 505 [place] [address] PCP - General Internal Medicine 03/17/17 documented as of this encounter
--- OUTSIDE RECORDS SUMMARY | 2025-09-11 13:19 | XMS_ITS | Encounter Summary ---
Author Organization [employer] Address 75 [facility] [place] [address] Care Team Providers Care Medical Claims Analyst Name Role Phone Clare Mo MD Primary Care Provider +1- [phone] Reason for Visit * Reason Onset Date [...] Encounter Details Date Type Department Care Team ([facility] st Contact Info) Description 09/22/2022 Telephone [facility] D[facility]AL [address] [place] [address] Shukri, Seema [address] [place], [place] [phone] treatment (Patient called in looking to have [...] [facility] [address] [place] [address] Evelina Pimentel, WILBER 505 [place] [address] documented as of this encounter Visit Diagnoses Not on filedocumented in this encounter Care Teams Medical Claims Analyst Relationship Specialty Start Date End Date Clare Mo MD 505 [place] [address] PCP - General Internal Medicine 03/17/17 documented as of this encounter
--- OUTSIDE RECORDS SUMMARY | 2025-09-11 13:19 | XMS_ITS | Encounter Summary ---
Author Organization [employer] Address [address] [place] [address] [address] Care Team Providers Care Lens Grinder Rough Name Role Phone Clare Mo MD Primary Care Provider +1- [phone] Reason for Visit * Reason Onset Date Comments Medication Question 11/29/2023 Encounter Details Date Type Department Care Team ([facility] Contact Info) Description 11/29/2023 Telephone [facility] MEDICINE [address] [place] [address] Clare Mo MD [address], [place] [phone] Medication Question Social History Tobacco Use Types [...] information was provided. Please contact pt at [phone]. documented in this encounter Plan of Treatment Upcoming Encounters Date Type Department Care Team ([facility] st Contact Info) Description 10/08/2025 10:30 AM EST Telemedicine [facility] MED & PEDS [address] [place] [address] Evelina Pimentel, WILBER [address] [place] [address] documented as of this encounter Visit Diagnoses Not on filedocumented in this encounter Care Teams Lens Grinder Rough Relationship Specialty Start Date End Date Clare Mo MD [address] [place] [address] PCP - General Internal Medicine 03/17/17 documented as of this encounter
--- OUTSIDE RECORDS SUMMARY | 2025-09-11 13:19 | XMS_ITS | Encounter Summary ---
Author Organization [employer] Address [address] [place] [address] Care Team Providers Care Application Lead Name Role Phone Clare Mo MD Primary Care Provider [phone]- [phone] Encounter Details Date Type Department Care Team (Latest Contact Info) Description 08/16/2020 Abstract [facility] CONVERSIONS Dental, Provider, DDS [...] Upcoming Encounters Date Type Department Care Team ([facility] st Contact Info) Description 10/08/2025 10:30 AM EST Telemedicine [facility] MED & PEDS [address] [place] [address] Evelina Pimentel, WILBER [address] [place] [address] documented as of this encounter Visit Diagnoses Not on filedocumented in this encounter Care Teams Application Lead Relationship Specialty Start Date End Date Clare Mo MD [address] [place] [address] PCP - General Internal Medicine 03/17/17 documented as of this encounter
--- OUTSIDE RECORDS SUMMARY | 2025-09-11 13:19 | XMS_ITS | Encounter Summary ---
Author Organization [employer] Address [address] [place] [id number] Care Team Providers Care Trim Mechanic Name Role Phone Clare Mo MD Primary Care Provider [phone]- [phone] Encounter Details Date Type Department Care Team ([facility] Contact Info) Description 02/12/2023 Orders Only [facility] MED [facility] PEDS [address] [place], [place] [phone] Clare Mo MD [address] [place] [address] Chronic low back pain with sciatica, sciatica [...] Upcoming Encounters Date Type Department Care Team ([facility] Contact Info) Description 10/08/2025 10:30 AM EST Telemedicine [facility] MED [facility] PEDS [address] [place], [place] [phone] Evelina Pimentel RN [address] [place] [address] documented as of this encounter Procedures Procedure Name Priority Date/Time Associated Diagnosis Comments PAP SMEAR Routine 03/08/2023 12:18 PM EDT Chronic low back pain with sciatica, sciatica laterality unspecified, unspecified back pain laterality documented in this encounter Results * Pap Smear (03/08/2023 12:18 PM EDT) 03/08/2023 12:1 8 PM EDT 03/10/2023 8:55 AM EDT [facility] - 03/27/2023 3:23 PM EDT ----- ------- Name: May Beckwith Age/Sex: 42/F : 1980 Unit#: [id number] Attend Dr: Jeff William MD Re03/08/23 Status: DEP REF Location: HO.LNP Disch: ----- ------- SPEC : [id number] RECD: 03/10/23 STATUS: PO LYNCH NUM: [id number] BRANDON: 03/08/23-[address]: Jeff William MD ENTERED: 03/10/2367 SP TYPE: Pap Smr OTHR DR: Clare Mo MD ORDERED: Pap Smear Interpretation Satisfactory for evaluation. No endocervical cells seen. Negative for intraepithelial lesion or malignancy. HPV mRNA E6/E7: NOT DETECTED This assay detects E6/E7 viral messenger RNA (mRNA) from 14 high-risk HPV types (16, 18, 31, 33, 35, 39, 45, 51, 52, 56, 58, 59, 66, 68) HPV testing performed by [email or web address], [place]. See reference laboratory portion of the EMR for entire report. Clinical Information LMP: 03/05/23 Previous PAP test: Unknown date/findings Material Received ThinPrep-Cervical Copies To: Clare Mo MD [address] [place] [phone] Jeff William MD [address] [place] [address] Dr. Matthews [address] [place] [phone] ----- ------- Signed (signature on file) Alondra Flores Tyrell 03/27/23 1523 ----- ------- END OF REPORT [facility] External Provider LAB CYT NATALYA ORDERABLES Final Result [facility] [address] [place] [address] [phone] documented in this encounter Visit Diagnoses Diagnosis Chronic low back pain with sciatica, sciatica laterality unspecified, unspecified back pain laterality documented in this encounter Care Teams Trim Mechanic Relationship Specialty Start Date End Date Clare Mo MD [address] [place] [phone] PCP - General Internal Medicine 03/17/17 documented as of this encounter
--- OUTSIDE RECORDS SUMMARY | 2025-09-11 13:19 | XMS_ITS | Clinical Summary ---
Author Organization [employer] Address [address] [facility] 7 [place] [address] Care Team Providers Care Coal And Ash Supervisor Name Role Phone Clare Mo MD Primary Care Provider [phone]- [phone] Allergies Active Allergy Reactions Criticality Noted Date [...] 2025 Active Blood Glucose Monitoring Suppl (FreeStyle Brighton Lite) w/Device kitIndications: Dizziness Use to test blood sugar 1 times daily 1 kit 025 Active Blood Pressure kitIndications: Dizziness To check the BP daily 1 kit 025 Active Misc. Devices (Pulse Oximeter Deluxe) miscIndications :Dizziness To check the O2 sat every 4 hours 1 each Active magnesium gluconate 250 MG tablet Take 250 mg by mouth. Active neomycin-polymy andrew-hydrocortis one (Cortisporin) 3.5-13277-[address] 3 to 4 DROPS [...] capsule 5 1:40 PM EST 025 Active dexAMETHasone (Decadron) 4 MG tabletIndicatio ns:Phlebitis Take 1 tablet (4 mg) by mouth Once per day. 3 tablet 5 2:21 PM EST 025 Active oxyCODONE-aceta minophen (Percocet) 10-325 MG tabletIndicatio ns:Foraminal stenosis of cervical region Take 1 tablet by mouth every 8 (eight) hours if needed for severe pain. 42 tablet 5 2:21 PM EST Active ketorolac (Toradol) 10 MG tabletIndicatio ns:Chronic left-sided low back pain, unspecified whether sciatica present Take 1 tablet (10 mg) by mouth every 6 (six) hours if needed for moderate pain for up to 5 days. 20 tablet 025 2025 Active oxyCODONE (Roxicodone) 5 MG immediate release tablet Take 5 mg by mouth. 025 2024 Discontinued(R jf (will not trigger notification to Pharmacy)) pregabalin [...] 5 10:27 AM EST 025 2024 Discontinued oxyCODONE-aceta minophen (Percocet) 10-325 MG tabletIndicatio ns:Foraminal stenosis of cervical region Take 1 tablet by mouth every 8 (eight) hours if needed for severe pain. Do not start before August 17, 2025. 42 tablet 5 1:40 PM EST 025 2024 Discontinued(R eorder (will not trigger notification to Pharmacy)) dexAMETHasone (Decadron) 4 MG tabletIndicatio ns:Phlebitis Take 1 tablet (4 mg) by mouth Once per day. 3 tablet 5 4:01 PM EST 025 2024 Discontinued(R eorder (will not trigger notification to Pharmacy)) oxyCODONE (Roxicodone) 5 MG immediate release tabletIndicatio ns:Chronic left-sided low back pain, unspecified whether sciatica present Take 1 tablet (5 mg) by mouth every 6 (six) hours if needed for severe pain for up to 7 days. 15 tablet 5 4:11 PM EST 025 2024 Hospital, Clinic, or Other Facility Administered Medication Ordered Dose Route Frequency Start Date End Date Status ketorolac (Toradol) injection 30 mgIndications:Chronic left-sided low back pain, unspecified whether sciatica present 30 mg IM Once 09/11/2025 09/11/2025 Ended Active Problems Problem Noted Date Diagnosed Date [...] back pain 02/05/2016 Depressed bipolar I disorder (CMS/HCC) 6 Migraine 02/05/2016 Mood disorder 02/05/2016 Panic disorder 02/05/2016 Posttraumatic stress disorder 02/05/2016 Encounters * This document contains information received from the source organization and may not represent a complete record from that organization. Date Type Department Care Team Description 09/11/2025 9:00 AM EST Office Visit [facility] [address] [place] [address] Clare Mo MD Memory disturbance (Primary Dx); Chronic left-sided low back pain, unspecified whether sciatica present; Dietary counseling; Exercise counseling; Class 1 obesity due to excess calories with serious comorbidity and body mass index (BMI) of 32.0 to 32.9 in adult 09/11/2025 Travel 09/10/2025 Telephone [facility] [address] [place] [address] Clare Mo MD chart prep 09/04/2025 Refill [facility] [address] [place] [address] Clare Mo MD Phlebitis; Foraminal stenosis of cervical region; Chronic left-sided low back pain, unspecified whether sciatica present 09/03/2025 Refill [facility] [address] [place] [address] Clare Mo MD Chronic left-sided low back pain, unspecified whether sciatica present 09/03/2025 Refill [facility] [address] [place] [address] Clare Mo MD Chronic left-sided low back pain, unspecified whether sciatica present; Foraminal stenosis of cervical region 09/03/2025 Telephone [facility] [address] [place] [address] Clare Mo MD Med Refill 08/31/2025 Results Follow-Up [facility] [address] [place] [address] Georgia Alicea RN XR Lumbar Spine Complete 4+ Views 08/31/2025 Telephone [facility] [address] [place] [address] Clare Mo MD Nurse Triage 08/30/2025 3:30 PM EST Office Visit [facility] [address] [place] [address] Clare Mo MD Chronic left-sided low back pain, unspecified whether sciatica present (Primary Dx); Fall, initial encounter; Phlebitis; Subcutaneous nodule 08/30/2025 Travel 08/30/2025 Telephone [facility] [address] [place] [address] Clare Mo MD Durable Medical Equipment 08/27/2025 2:30 PM EST Telemedicine [facility] [address] [place] [address] Georgia Alicea RN Left hip pain [M25.552] 08/27/2025 Travel 08/22/[address] [address] Clare Mo MD Nurse Triage 08/15/2025 Refill [facility] [address] [place] [address] Clare Mo MD Foraminal stenosis of cervical region 08/14/2025 Refill [facility] [address] [place] [address] Clare Mo MD Anxiety; Chronic low back pain with sciatica, sciatica laterality unspecified, unspecified back pain laterality 07/30/2025 Refill [facility] [address] [place] [address] Clare Mo MD Foraminal stenosis of cervical region 07/20/2025 Refill [facility] [address] [place] [address] Clare Mo MD Foraminal stenosis of cervical region 07/19/2025 11:00 AM EST Clinical Support [facility] [address] [place] [address] Evelina Pimentel, ice cream freezer low back pain with sciatica, sciatica laterality unspecified, unspecified back pain laterality (Primary Dx) 07/19/2025 Orders Only [facility] [address] [place] [address] Clare Mo MD Anxiety (Primary Dx) 07/19/2025 Telephone [facility] [address] [place] [address] Evelina Pimentel, WILBER 07/19/2025 Travel 07/15/2025 Refill [facility] [address] [place] [address] Clare Mo MD Mild persistent asthma without complication; Chronic low back pain with sciatica, sciatica laterality unspecified, unspecified back pain laterality; Anxiety 07/03/2025 Refill [facility] [address] [place] [address] Clare Mo MD Foraminal stenosis of cervical region 06/28/2025 Telephone [facility] [address] [place] [address] Clare Mo MD Medication Question 06/28/2025 Telephone [facility] [address] [place] [address] Clare Mo MD Medication Question 06/21/2025 Refill [facility] [address] [place] [address] Clare Mo MD Foraminal stenosis of cervical region 06/20/2025 Refill [facility] [address] [place] [address] Evelina Pimentel, WILBER Anxiety 06/20/2025 Telephone [facility] [address] [place] [address] Clare Mo MD 06/20/2025 Refill [facility] [address] [place] [address] Clare Mo MD Chronic low back pain with sciatica, sciatica laterality unspecified, unspecified back pain laterality; Neck pain 06/20/2025 Telephone [facility] [address] [place] [address] Clare Mo MD Durable Medical Equipment from Last 3 Months Immunizations Immunization Administration [...] Pulse 83 09/11/2025 9:09 AM EST Temperature 36.8 C (98.2 F) 08/30/2025 3:26 PM EST Respiratory Rate 20 09/11/2025 9:09 AM EST Oxygen Saturation 96% 09/11/2025 9:09 AM EST Inhaled Oxygen Concentration - - Weight 87.1 kg (192 lb) 09/11/2025 9:09 AM EST Height 162.6 cm (5' 4 ) 09/11/2025 9:09 AM EST Body Mass Index 32.96 09/11/2025 9:09 AM EST Plan of Treatment Upcoming Encounters Date Type Department Care Team (Late st Contact Info) Description 10/08/2025 10:30 AM EST Telemedicine [facility] [address] [place] [address] Evelina Pimentel, RN [address] [place] [address] Health Maintenance Due Date Last Done Comments [...] 07/30/2020 Depression Screening 03/08/2025 03/08/2024, 03/08/20 24 SDOH Screening 06/02/2025 06/02/2024 Hepatitis B Vaccines (3 of 3 - 19+ 3-dose series) 08/28/2025 04/17/2025, 02/26/2025 Disability Screening 01/01/2026 01/01/2025 Mammogram 04/30/2026 04/30/2025, 04/13, 01/10/2022, Additional history exists Tobacco Screening 08/30/2026 [...] Completed 02/28/2025 Hepatitis C Screening Completed 02/28/2025 COVID-19 Vaccine Completed 09/01/2025, , 08/27/2023, Additional history exists Influenza Vaccine Completed 09/01/2025, , 07/02/2022, Additional history exists HIB Vaccines Aged Out [...] Name Priority Date/Time Associated Diagnosis Comments XR LUMBAR SPINE COMPLETE 4+ VIEWS Routine 08/31/2025 9:21 AM EST Chronic left-sided low back pain, unspecified whether sciatica present POCT VICTOR MANUEL-14 URINE DRUG SCREEN Routine [...] Relevant to Health Maintenance Results * XR Lumbar Spine Complete 4+ Views (08/31/2025 9:21 AM EST) Anatomical Region Laterality Modality Spine, L-spine Radiographic Brittany ging 08/31/2025 9:21 AM EST Narrative 08/31/2025 9:32 AM EST [place] [address] XRay Report Signed Patient: May Macedo MR#: [id number] : 1980 Acct:[id number] Age/Sex: 45 / F ADM Date: 08/31/25 Loc: [facility] Attending Dr: Clare Mo MD Ordering Physician: Clare Mo MD Date of Service: 08/31/25 Procedure(s): XR lumbar spine 4V min Accession Number(s): [id number] cc: Clare Mo MD Reason for Exam: Worsening low back pain after a fall. EXAMINATION: XR LUMBAR SPINE 4 OR MORE VIEWS HISTORY: Worsening low back pain after a fall. COMPARISON: Comparison is made with the prior examination dated 03/21/2025. FINDINGS: AP, lateral, and coned down views of the lumbar spine are submitted. Osseous mineralization is normal. Five nonrib-bearing lumbar vertebral bodies are identified, maintaining normal height and alignment without evidence of fracture or spondylolisthesis. There is mild narrowing of the L4-5 and L5-S1 intervertebral disc spaces. The posterior elements are intact. The visualized paraspinal soft tissues are unremarkable. XR/XR lumbar spine 4V min IMPRESSION: Disc space narrowing at L4-5 and L5-S1. Electronically signed by: Chriss Gutierrez MD 08/31/2025 09:29 AM EST RP Dictated By: Chriss Gutierrez MD Signed By: <Electronically signed by Chriss Gutierrez MD in OV> 08/31/25928 DD/ 0 TD/TT: 08/31/25924 Machine Inspector: Procedure Note Donotuseinterpreter, Image - 08/31/[address] [address] XRay Report Signed Patient: May MacedoMR#: [id number] : 1980Acct:[id number] Age/Sex: 45 / FADM Date: 08/31/25 Loc: HO.AZAELAY Attending Dr: Clare Mo MD Ordering Physician: Clare Mo MD Date of Service: 08/31/25 Procedure(s): XR lumbar spine 4V min Accession Number(s): [id number] cc: Clare Mo MD Reason for Exam: Worsening low back pain after a fall. EXAMINATION: XR LUMBAR SPINE 4 OR MORE VIEWS HISTORY: Worsening low back pain after a fall. COMPARISON: Comparison is made with the prior examination dated 03/21/2025. FINDINGS: AP, lateral, and coned down views of the lumbar spine are submitted. Osseous mineralization is normal. Five nonrib-bearing lumbar vertebral bodies are identified, maintaining normal height and alignment without evidence of fracture or spondylolisthesis. There is mild narrowing of the L4-5 and L5-S1 intervertebral disc spaces. The posterior elements are intact. The visualized paraspinal soft tissues are unremarkable. XR/XR lumbar spine 4V min IMPRESSION: Disc space narrowing at L4-5 and L5-S1. Electronically signed by: Chriss Gutierrez MD 08/31/2025 09:29 AM EST Dictated By: Chriss Gutierrez MD Signed By: <Electronically signed by Chriss Gutierrez MD in OV> 08/31/25928 DD/ 0 TD/TT: 08/31/25924 Machine Inspector: us Clare Mo MD IMG XR PROCEDURES Final Res ult * (ABNORMAL) POCT VICTOR MANUEL-14 Urine Drug [...] AM EST . Internal Pass Control Lot# [id number] Exp: 07-13-26 us Clare Mo MD POINT OF CARE TEST ENTER/ED IT ORDERABLES Final Result * BI Mammogram Screening Tomosynthesis Bilateral (04/30/2025 1:40 PM EDT) Anatomical Region Laterality Modality Breast Bilateral Mammography 04/30/2025 1:40 PM EDT Narrative 05/02/2025 9:21 AM EDT [facility] [address] [place] [address] Mammography Report Signed Patient: May Macedo MR#: [id number] : 1980 Acct:[id number] Age/Sex: 44 / F ADM Date: 04/30/25 Loc: HO.MAMMO Attending Dr: Clare Mo MD Ordering Physician: Clare Mo MD Results: 1 Negative Date of Service: 04/30/25 Follow Up: 1 Year From [facility] Mammogram Procedure(s): MM tomosynthesis screening BI Accession Number(s): [id number] cc: Clare Mo MD EXAMINATION: MM SCREENING [...] 05/02/25 0918 DD/ 1340 TD/TT: 04/30/25 1350 Machine Inspector: Procedure Note Donotuseinterpreter, Image - 05/02/2025 [facility] [address] [place] [address] Mammography Report Signed Patient: May MacedoMR#: [id number] : 1980Acct:[id number] Age/Sex: 44 / FADM Date: 04/30/25 Loc: HO.MAMMO Attending Dr: Clare Mo MD Ordering Physician: Clare Mo MDResults: 1 Negative Date of Service: 04/30/25Follow Up: 1 Year From [facility] Mammogram Procedure(s): MM tomosynthesis screening BI Accession Number(s): [id number] cc: Clare Mo MD EXAMINATION: MM SCREENING [...] 05/02/25 0918 DD/ 1340 TD/TT: 04/30/25 1350 Machine Inspector: us Clare Mo MD IMG BI PROCEDURES Final Res ult * Hepatitis C Antibody with Reflex to HCV, RNA, Quantitative, Real-Time PCR (02/28/2025 12:36 PM EDT) Hepatitis C Antibody Nonreactive Nonreactive [facility] Comment:Antibodies to HCV no t detected; does not exclude early acuteHCV infection. Blood Venous blood specimen / Unknown 02/28/2025 12:36 PM EDT 02/28/2025 2:06 PM EDT us Clare Mo MD LAB BLOOD ORDERABLES Final Result [facility] [address] [place], [place] [phone] * HIV-1/2 Antigen and Antibodies, Fourth Generation, with Reflexes (02/28/2025 12:36 PM EDT) HIV AB/AG Nonreactive Nonreactive [facility] Comment:HIV-1 p24 Ag and/or HIV-1/HIV-2 Ab not detected.A test result that is nonreactive does not exclude thepossibility of exposure to or infection with HIV-1 and/orHIV-2. Nonreactive results in this assay for individualswith prior exposure to HIV-1 and/or HIV-2 may be due toantigen and antibody levels that are below the limit ofdetection of this assay.The [employer] HIV Ag/Ab Combo assay result andsupplemental assay results should be interpreted inconjunction with the patient's clinical presentation,history and other laboratory results. If the results areinconsistent with clinical evidence, additional testing issuggested to confirm the result. Blood Venous blood specimen / Unknown 02/28/2025 12:36 PM EDT 02/28/2025 2:06 PM EDT us Clare Mo MD LAB BLOOD ORDERABLES Final Result [facility] [address] [place] [phone] * Lipid Panel, Standard (02/28/2025 12:36 PM EDT) Triglycerides 111 <150 mg/dL [facility] Comment:Desirable Triglyceri de: less than 150 mg/dLBorderline High Triglyceride 150-199 mg/dLHigh Triglyceride: 200-499 mg/dLVery High Triglyceride: greater than or equal to 5OO mg/dL Cholesterol 181 <200 mg/dL [facility] Comment:Desirable Cholestero l: less than 200 mg/dLBorderline High Cholesterol: 200-239 mg/dLHigh Cholesterol: greater than 239 mg/dL LDL Cholesterol Calculated 95 <100 mg/dL [facility] Comment:Desirable LDL: less than 100 mg/dLNear Optimal/Above Optimal LDL: 110- 129 mg/dLBorderline High LDL: 130-159 mg/dLHigh LDL: 160-189 mg/dLVery High LDL: greater than or equal to 190 mg/dL HDL Cholesterol 64 >40 mg/dL [facility] Comment:Desirable HDL: great er than 40 mg/dL Note: This HDL assay may give artificially low results in patients with liver disease. Blood Venous blood specimen / Unknown 02/28/2025 12:36 PM EDT 02/28/2025 2:06 PM EDT us Clare Mo MD LAB BLOOD ORDERABLES Final Result [facility] [address] [place] [address] [phone] * Hm Colonoscopy (08/31/2024 10:14 AM EST) us Historical Provider HEALTH MAINTENANCE Final Result * Pap Smear (03/08/2023 12:18 PM EDT) 03/08/2023 12:1 8 PM EDT 03/10/2023 8:55 AM EDT Narrative [facility] - 03/27/2023 3:23 PM EDT ----- ------- Name: Remington GongoraMay Age/Sex: 42/F : 1980 Unit#: [id number] Attend Dr: Jeff William MD Re03/08/23 Status: DEP REF Location: HO.LNP Disch: ----- ------- SPEC : [id number] RECD: 03/10/23-854 STATUS: PO LYNCH NUM: [id number] BRANDON: 03/08/23-[address] [facility] [address]: Jeff William MD ENTERED: 03/10/23 [...] 59, 66, 68) HPV testing performed by [facility], [place], [place]. See reference laboratory portion of the EMR for entire report. Clinical Information LMP: 03/05/23 Previous PAP test: Unknown date/findings Material Received ThinPrep-Cervical Copies To: Clare Mo MD [address] [place] [phone] Jeff William MD [address] [place] [address] [address] ----- ------- Signed (signature on file) Alondra Santillan 03/27/23 1523 ----- ------- END OF REPORT [facility] External Provider LAB [facility] ORDERABLES Final Result [facility] [address] [place] [address] [phone] * HPV mRNA E6/E7 (10/24/2019 3:31 PM EST) HPV mRNA E6/E7 Not Detected NOT DETECTED [facility] Comment: This test was performed using the APTIMA(R) HPV Assay ([facility] This assay detects E6/E7 viral messenger RNA (mRNA) from 14 high-risk HPV types (16,18,31,33,35,39,45,51, 52,56,58,59,66,68). For additional information please refer to: http://education.[facility]/faq/VWJ103g9 (This link is being provided for informational/ educational purposes only.) The analytical performance characteristics of this assay have been determined by [facility] [place], [place]. The modifications have not been cleared or approved by the FDA. This assay has been validated pursuant to the CLIA regulations and is used for clinical purposes. Test Performed by [facility], [facility], [address] [place] [address] Jalen Hart M.D., Ph.D., Director of Laboratories , CLIA [id number] Please note: Effective 05/25/2016, HPV testing will be performed using [employer] APTIMA test which targets mRNA. Detecting mRNA instead of DNA, as in older methods, offers significant improvements in specificity. 10/24/2019 3:31 PM EST us Camille Ash CNM HISTORICAL/NON ORDERABLE LABS Final Result [facility] [address] from Last 3 Months or Most Recently Relevant to Health Maintenance Insurance [facility] STANDARD [facility] ONE CARE < 65 DENTAL-[facility] [place] [address] [place] [address] [place] [address] Care Teams Coal And Ash Supervisor Relationship Specialty Start Date End Date Clare Mo MD [address] [place] [address] [place] [address] PCP - General Internal Medicine 03/17/17
--- OUTSIDE RECORDS SUMMARY | 2025-09-11 13:19 | XMS_ITS | Encounter Summary ---
Author Organization [employer] Address [address] [place] [address] Care Team Providers Care Insurance Account Manager Name Role Phone Clare Mo MD Primary Care Provider +1- [phone] Reason for Visit * Reason Comments Med Refill Encounter Details Date Type Department Care Team ([facility] Contact Info) Description 02/24/2023 Refill [facility] [address] [place] [address] Clare Mo MD [address] [place] [address] Anxiety; Chronic low back pain with sciatica, [...] Care Team ([facility] Contact Info) Description 10/08/2025 10:30 AM EST Telemedicine [facility] [address] [place] [address] Evelina Pimentel, WILBER [address] [place] [address] documented as of this encounter Visit Diagnoses Diagnosis Anxiety Anxiety state, unspecified Chronic low back pain with sciatica, sciatica laterality unspecified, unspecified back pain laterality documented in this encounter Care Teams Insurance Account Manager Relationship Specialty Start Date End Date Clare Mo MD [address] [place] [address] PCP - General Internal Medicine 03/17/17 documented as of this encounter
--- OUTSIDE RECORDS SUMMARY | 2025-09-11 13:19 | XMS_ITS | Encounter Summary ---
Author Organization [employer] Address [address] [facility] 7 [place] [address] Care Team Providers Care Tooler Name Role Phone Clare Mo MD Primary Care Provider +1- [phone] Reason for Visit * Reason Comments Med Refill Encounter Details Date Type Department Care Team ([facility] st Contact Info) Description 10/11/2023 Refill [facility] [address] [place] [address] Clare Mo MD [address] [place], [place] [phone] Chronic low back pain, unspecified back pain [...] the past 12 months, has t he Aternity, gas, oil or water company threatened to [...] Info) Description 10/08/2025 10:30 AM EST Telemedicine [facility] [address] [place] [address] Evelina Pimentel, WILBER [address] [place] [address] documented as of this encounter Visit Diagnoses Diagnosis Chronic low back pain, unspecified back pain laterality, unspecified whether sciatica present documented in this encounter Care Teams Tooler Relationship Specialty Start Date End Date Clare Mo MD [address] [place] [address] PCP - General Internal Medicine 03/17/17 documented as of this encounter
--- OUTSIDE RECORDS SUMMARY | 2025-09-11 13:19 | XMS_ITS | Encounter Summary ---
Author Organization [employer] Address [address] [place] [address] Care Team Providers Care Center Machine Set Up Operator Name Role Phone Clare Mo MD Primary Care Provider +1- [phone] Encounter Details Date Type Department Care Team ([facility] Contact Info) Description 03/03/2023 Abstract [facility] [address] [place] [address] Kelsea Talley MA Social History Tobacco Use [...] Care Team ([facility] Contact Info) Description 10/08/2025 10:30 AM EST Telemedicine [facility] [address] [place] [address] Evelina Pimentel, WILBER [address] [place] [address] documented as of this encounter Visit Diagnoses Not on filedocumented in this encounter Care Teams Center Machine Set Up Operator Relationship Specialty Start Date End Date Clare Mo MD [address] [place] [address] PCP - General Internal Medicine 03/17/17 documented as of this encounter
--- OUTSIDE RECORDS SUMMARY | 2025-09-11 13:19 | XMS_ITS | Encounter Summary ---
Author Organization [employer] Address [address] [facility] [address], [place] [address] Care Team Providers Care Mortgage Processor Name Role Phone Clare Mo MD Primary Care Provider +1- [phone] Reason for Visit * Reason Onset Date Comments Med Refill 07/26/2023 Encounter Details Date Type Department Care Team ([facility] st Contact Info) Description 07/26/2023 Telephone [facility] [address] [place] [address] Clare Mo MD [address] [place], [place] [phone] Med Refill Social History Tobacco Use Types [...] [facility] [address] [place] [address] Evelina Pimentel, WILBER [address] [place] [address] documented as of this encounter Visit Diagnoses Not on filedocumented in this encounter Care Teams Mortgage Processor Relationship Specialty Start Date End Date Clare Mo MD [address] [place] [address] PCP - General Internal Medicine 03/17/17 documented as of this encounter
--- OUTSIDE RECORDS SUMMARY | 2025-09-11 13:19 | XMS_ITS | Encounter Summary ---
Author Organization [employer] Address [address] [facility] [place] [address] Care Team Providers Care Hand Fabric Cutter Name Role Phone Calre Mo MD Primary Care Provider [phone]- [phone] Reason for Visit * Reason Onset Date Comments Call Back Request 11/30/2023 Encounter Details Date Type Department Care Team ([facility] Contact Info) Description 11/30/2023 Telephone [facility] [address] [place] [address] Clare Mo MD [address] [place], [place] [phone] Call Back Request Social History Tobacco Use [...] ([facility] st Contact Info) Description 10/08/2025 10:30 AM EST Telemedicine [facility] [address] [place] [address] Evelina Pimentel RN [address] [place] [address] documented as of this encounter Visit Diagnoses Not on filedocumented in this encounter Care Teams Hand Fabric Cutter Relationship Specialty Start Date End Date Clare Mo MD [address] [place] [address] PCP - General Internal Medicine 03/17/17 documented as of this encounter
--- OUTSIDE RECORDS SUMMARY | 2025-09-11 13:19 | XMS_ITS | Encounter Summary ---
Author Organization [employer] Address [address] [address] Care Team Providers Care Weld Engineer Name Role Phone Clare Mo MD Primary Care Provider [phone]- [phone] Reason for Visit * Reason Onset Date Comments call back 02/12/2023 Encounter Details Date Type Department Care Team ([facility] Contact Info) Description 02/12/2023 Telephone [facility] [address] [place] [address] Clare Mo MD [address] [place] [address] call back Social History Tobacco Use Types [...] PCP cancelled script. Please contact pt at [phone] documented in this encounter Plan of Treatment Upcoming Encounters Date Type Department Care Team ([facility] st Contact Info) Description 10/08/2025 10:30 AM EST Telemedicine [facility] [address] [place] [address] Evelina Pimentel, WILBER [address] [place] [address] documented as of this encounter Visit Diagnoses Not on filedocumented in this encounter Care Teams Weld Engineer Relationship Specialty Start Date End Date Clare Mo MD [address] [place] [address] PCP - General Internal Medicine 03/17/17 documented as of this encounter
--- OUTSIDE RECORDS SUMMARY | 2025-09-11 13:19 | XMS_ITS | Encounter Summary ---
Author Organization [employer] Address [address] [place] [address] Care Team Providers Care Stained Glass Joiner Name Role Phone Clare Mo MD Primary Care Provider [phone]- [phone] Encounter Details Date Type Department Care Team ([facility] Contact Info) Description 05/14/2023 Orders Only [facility] [address] [place], [place] [phone] Clare Mo MD [address] [place], [place] [phone] Pain in both hands (Primary Dx); Chronic [...] [facility] Contact Info) Description 10/08/2025 10:30 AM EST Telemedicine [facility] [address] [place], [place] [phone] Evelina Pimentel RN [address] [place], [place] [phone] documented as of this encounter Visit Diagnoses Diagnosis Pain in both hands- Primary Chronic migraine without aura without status migrainosus, not intractable Anxiety Anxiety state, unspecified Chronic midline low back pain with sciatica, sciatica laterality unspecified documented in this encounter Care Teams Stained Glass Joiner Relationship Specialty Start Date End Date Clare Mo MD [address] [place] [id number] PCP - General Internal Medicine 03/17/17 documented as of this encounter
[2025-09-11 15:11] LABS: MANUAL DIFF FLAG NO
[2025-09-11 15:15] LABS: Hematocrit 41.9 % (37.0-47.0); Hemoglobin 14.4 g/dl (12.0-16.0); Imm Gran Abs Auto 0.04 X10*3/uL (0.00-0.03); Imm Gran Pct Auto 0.6 % (0.0-0.4); Lymphocytes Absolute Auto 2.3 X10*3/uL (1.2-4.9); Mean Corpuscular HGB Conc 34.4 g/dl (31.0-35.0); Mean Corpuscular Hemoglobin 31.9 pg (27.0-33.0); Mean Corpuscular Volume 92.7 fL (80.0-98.0); NRBC Abs Auto 0.000 X10*3/uL (0.0-0.012); NRBC Pct Auto 0.0 /100WBC (0.0-0.2); Platelet Count 252 X10*3/uL (160-400); Red Blood Count 4.52 X10*6/uL (4.20-5.50); White Blood Count 7.1 X10*3/uL (4.8-10.8)
[2025-09-11 16:00] LABS: Alanine Aminotransferase 23 U/L (0-31); Albumin Level 4.1 g/dL (3.5-5.0); Alkaline Phosphatase 63 U/L (39-117); Anion Gap 9 (12-20); Aspartate Amino Transferase 26 U/L (5-31); Blood Urea Nitrogen 12 mg/dL (9-16); Calcium 9.0 mg/dL (8.4-10.2); Carbon Dioxide 26 mmol/L (22-29); Chloride 108 mmol/L (96-108); Estimated Glomerular Filt Rate > 60; Potassium 4.1 mmol/L (3.3-5.1); Sodium 139 mmol/L (135-145); Total Protein 6.4 g/dL (6.5-8.0)
[2025-09-11 16:30] LABS: Folate 8.7 ng/mL (> or = 4.0); Vitamin B12 323 pg/mL (200-900)
== END 2025-09-11 10:06 | disposition home or self-care (01) ==
LOC: HO.CHCLDS 10:05
PROVIDERS: Visit Provider Internal Medicine
DX: R41.3 Other amnesia (principal)
CPT/HCPCS: 36415; 80053; 82607; 82746; 84443; 85025